=== PATIENT | male | born 1965 | race Caucasian/White ===

== ENCOUNTER → 2017-02-06 | Outpatient (CLI) | payer OTHER ==
--- NOTE | 2017-02-07 07:45 | SPLIT NIGHT TECHNICIAN REPORT ---
[facility] Split Night Polysomnogram - Dust Handler Report Study date: 02/06/2017 Referring Physician: Name: PADDY TARA W Dust Handler: Sonali Lorenzo, PSGT. Date of : 1965 Height: 51 years, Height 5' 11" Sex: Male Weight: 384 lbs Age: 51 BMI: Medications: 53.55 SEE LIST OF 14 MEDICATIONS IN CHART. Patient History 51 YR. OLD MALE IN ROOM 5, HERE FOR A SPLIT NIGHT SEIZURE STUDY.ESS = 5. PT.HAS HAD SEVERE SIDRA IN THE PAST BUT WAS NOT ABLE TO TOLERATE THE MASK/AND AIR. Parameters Monitored NPSG: E1-M2, E2-M1, Fp1-M2, Fp2-M1, F3-M2, F4-M2, F4-M1, C3-M2, C4-M2, C4-M1, O1-M2, O2-M2, O2-M1, T3-M2, T4-M1, P3-M2, P4-M1, CHIN1, CHIN2, HR, EKG, Legs, PFLOW, SNOR, FLOW, CFLOW, Tidal Volume, THOR, ABDO, SpO2, PLTH, CPRESS, ETCO2 Wave, ETCO2, pH SLEEP SUMMARY DATA DIAGNOSTIC TREATMENT Lights Out: 10:56:01 PM NONE Lights On: 1:23:31 AM 5:31:31 AM Total Recording Time (TRT): 151.7 min. 243.3 min. Total Sleep Time (TST): 100.5 min. 201.0 min. NREM Time: 100.5 min. 106.5 min. REM Time: 0.0 min. 94.5 min. Sleep Period Time (SPT): 136.5 min. 202.5 min. Sleep Efficiency (SE): 68 % 83 % Sleep Latency: 3.0 min. NONE min. Arousal Index: 84.8 36.7 PAP Treatment Levels: 5, 7, 9, 11, 13 * Optimal Pressure(s) SLEEP STAGING DATA DIAGNOSTIC TREATMENT Duration (min) TST % Duration (min) TST % Stage Wake: 51.2 min. -- 42.3 min. -- WASO: 44.0 min. -- 1.5 min. -- NREM: 100.5 min. 100 % 106.5 min. 53 % Stage N1: 28.0 min. 28 % 3.0 min. 1 % Stage N2: 72.5 min. 72 % 103.5 min. 51 % Stage N3: 0.0 min. 0 % 0.0 min. 0 % REM: 0.0 min. 0 % 94.5 min. 47 % POSITIONAL DATA Event Count Index Event Count Index Supine: 7 100.5 3 1.8 Supine NREM: 7 100.5 0 0.0 Supine REM: N/A N/A 3 2 Non-Supine: 171 106.5 97 58.4 Non-Supine NREM: 171 106.5 96 58.8 Non-Supine REM: N/A N/A 1 35.5 AROUSAL SUMMARY DATA: Event Count Index Event Count Index Apnea Arousals: 24 32.8 9 6.3 Hypopnea Arousals: 47 28.1 21 6.3 Snore Arousals: 28 16.7 7 2.1 PLM Arousals: 4 2.4 1 0.3 Non-Specific Arousals: 39 23.3 80 23.9 Total Arousals: 142 84.8 123 36.7 MYOCLONUS (PLM) Event Count Index Event Count Index PLM: 76 45.4 10 3.0 PLM AROUSAL: 4 2.4 1 0.3 PLM W/O AROUSAL 76 45.4 9 2.7 PLM W/RESP EVENT 15 0.0 0 0.0 MYOCLONUS (PLM) Event Count Index Event Count Index LM: 2 35.8 37 11.0 LM AROUSAL: 2 1.2 5 1.5 LM W/O AROUSAL LM W/RESP EVENT LM NON SPECIFIC 89 53.1 34 10.1 HEART RATE DATA DIAGNOSTIC TREATMENT Sleep (bpm): 74 63 REM (bpm): N/A 89 NREM (bpm): 86 81 Tachycardia Count: 0 0 Tachycardia Duration: 0.00 0 Bradycardia Count: 0 0 Bradycardia Duration: 0.00 0 DIAGNOSTIC PORTION TREATMENT PORTION RESPIRATORY DATA Event Count Index Event Count Index AHI: -- 106.3 -- 29.9 RDI: -- 106.3 -- 30 Obstructive Apnea: 49 29.3 20 6.0 Central Apnea: 0 0.0 0 0.0 Mixed Apnea: 6 3.6 1 0.3 Hypopnea: 123 73.4 79 23.6 RERA: 0 0.0 0 0.0 Total Apneas: 55 32.8 21 6.3 RESPIRATORY DATA REM NREM SLEEP REM NREM SLEEP Supine Position: Obstructive Apneas: N/A 6 6 0 0 0 Central Apneas: N/A 0 0 0 0 0 Mixed Apneas: N/A 0 0 0 0 0 Hypopneas: N/A 1 1 3 0 3 RERA N/A 0 0 0 0 0 Total Supine Events: N/A 7 7 3 0 3 Supine AHI: N/A 100.5 100.5 2 0.0 1.8 Supine RDI: N/A 100.5 100.5 1.9 0.0 1.8 REM NREM SLEEP REM NREM SLEEP Non-Supine Position: Obstructive Apneas: N/A 43 43 0 20 20 Central Apneas: N/A 0 0 0 0 0 Mixed Apneas: N/A 6 6 0 1 1 Hypopneas: N/A 122 122 1 75 76 RERA N/A 0 0 0 0 0 Total Supine Events: N/A 171 171 1 96 97 Supine AHI: N/A 106.5 106.5 35.5 58.8 58.4 Supine RDI: N/A 106.5 106.5 35.5 58.8 58.4 OXYGEN DESTAURATION DATA: Event Count Index Event Count Index REM Desaturations: N/A N/A 10 6.3 NREM Desaturations: 155 92.5 97 54.6 SNORE DATA DIAGNOSTIC TREATMENT Snore Time: 28.1 2:08:31 AM Snore TST%: 16 7 Snore Arousal Count: 28 7 Snore Arousal Index: 16.7 2.1 Desaturation Event Summary: Minimum %SpO2 Event Count Mean/Min/Max Duration(sec.) Desaturation Index % Time In Bed > 90 145 27.1 / 5.8 / 55.0 127.7 19.7 86 - 90 149 25.8 / 4.0 / 55.0 59.8 43.3 81 - 85 40 23.5 / 6.0 / 41.0 42.5 16.4 76 - 80 2 11.0 / 6.0 / 16.0 3.4 10.4 71 - 75 0 N/A 0.0 8.5 66 - 70 0 N/A 0.0 1.7 61 - 65 0 N/A 0.0 0.0 56 - 60 0 N/A 0.0 0.0 51 - 55 0 N/A 0.0 0.0 < 50 0 N/A 0.0 0.0 OXYGEN SATURATION DATA DIAGNOSTIC TREATMENT SpO2 Mean Sleep: 86 % 85 % SpO2 Mean REM: N/A % 89 % SpO2 Mean NREM: 86 % 81 % SpO2 Minimum Sleep: 72 % 67 % SpO2 Minimum REM: N/A % 83 % SpO2 Minimum NREM: 72 % 67 % Time Below 90% (TST): 64.5 145.4 Time Below 88% (TST): 51.0 84.4 Total REM NREM Awake <50% 0.0 min. 0.0 min. 0.0 min. 0.0 min. 51 - 60% 0.1 min. 0.0 min. 0.0 min. 0.1 min. 61 - 70% 5.8 min. 0.0 min. 4.5 min. 1.3 min. 71 - 80% 65.1 min. 0.0 min. 56.4 min. 8.7 min. 81 - 90% 206.0 min. 82.6 min. 97.2 min. 26.2 min. 91 - 100% 68.1 min. 11.3 min. 29.4 min. 27.5 min. Average 86 89 83 88 Minimum SpO2 58 83 67 58 Desaturation Event Index 40.2 6.3 73.0 0.0 # Desat. Events below 89% 255 10 245 0 Time(%) with Saturation below 89% 55.6 8.9 39.5 7.2 Time(min.) with Saturation below 89% 192.0 30.7 136.3 25.0 Recording Dust Handler Comments: Split -Night: slept in the right, and supine positions. No cardiac arrhythmia. Severe PLM's noted. No bruxism noted. Snoring was noted and scored as a 5 on a scale of 1 through 5. (0=no snoring, 5=snoring loud enough to be heard through a closed door or down the ruiz way) At 1:23, has met specific Split-Night criteria during the diagnostic portion of this study. CPAP was initiated at +4 CMH2O and up-titrated to an optimal level of +13 CMH2O, which nearly eliminated all respiratory events and snoring. A F&P Large Simplus , was used during titration awoke to use the restroom one time during the night. Mr. Sanchez stated, I did not sleep as well as I do when I am in my own bed". The final report will be interpreted and signed by a sleep physician. The completed physician report will then be placed in the patient medical record. Pt. had been started out on a seizure montage, he pulled it completely off his head when he decided to get up out of the bed.Pt. was very difficult to work with from the beginning of the night, he didn't want to be here and did not feel that he needed to be here. 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 When I put all the wires back on he did it again, so the third time I did a normal PSG supervisor drawing. Pt. actually would kick his legs so hard it would move his entire body this went on until c-pap was started. Pt. continued to pull wires and O2 sensor off throughout the night.Pt. had a lot of anxiety with the mask and air at first he would call me into the room several times to remove it sit up and drink, he stated he didn't have the mind set to wear it.After spending some time with him on the education of the benefit's from the c-pap he conceded and slept until the end of the study. Therapy Event: Therapy (cm H20) 0 5 7 9 11 13 Total Time at Pressure (min.) 147.7 44.8 5.5 37.8 25.8 129.5 TST at Pressure (min.) 100.5 4.0 5.5 37.8 25.8 128.0 # Periods 1 1 1 1 1 1 Sleep Onset (min.) 3.0 40.8 0.0 0.0 0.0 0.0 REM Onset (min.) N/A N/A N/A N/A N/A 25.0 Sleep Efficiency % 68 8 100 100 100 98 Wakefulness (%) 32.0 91.1 0.0 0.0 0.0 1.2 Wakefulness (min.) 47.2 40.8 0.0 0.0 0.0 1.5 NREM 1 (%) 19.0 6.7 0.0 0.0 0.0 0.0 NREM 1 (min.) 28.0 3.0 0.0 0.0 0.0 0.0 NREM 2 (%) 49.1 2.2 100.0 100.0 100.0 25.9 NREM 2 (min.) 72.5 1.0 5.5 37.8 25.8 33.5 NREM 3 (%) 0.0 0.0 0.0 0.0 0.0 0.0 NREM 3 (min.) 0.0 0.0 0.0 0.0 0.0 0.0 REM (%) 0.0 0.0 0.0 0.0 0.0 73.0 REM (min.) 0.0 0.0 0.0 0.0 0.0 94.5 # Arousals 142 4 6 45 34 34 Arousal Index 84.8 60.2 65.8 71.5 79.1 15.9 # Snore 714 7 11 157 106 110 Snore Index 426.3 105.3 120.7 249.5 246.7 51.6 AHI 106.3 60.2 76.8 71.5 79.1 4.7 AHI Supine 100.5 N/A N/A N/A N/A 1.8 AHI Non-Supine 106.5 60.2 76.8 71.5 79.1 15.7 NREM AHI 106.3 60.2 76.8 71.5 79.1 10.7 REM AHI N/A N/A N/A N/A N/A 2.5 RDI 106.3 60.2 76.8 71.5 79.1 4.7 # Obstructive 49 0 2 11 7 0 # Central Ap 0 0 0 0 0 0 # Mixed 6 1 0 0 0 0 # Hypopneas 123 3 5 34 27 10 RERAS 0 0 0 0 0 0 Total Respiratory Events 178 4 7 45 34 10 Time Below SpO2 89.00% (min.) 58.0 3.6 5.3 33.3 21.1 45.8 Mean NREM SpO2 (%) 86 78 77 78 81 86 Mean REM SpO2 (%) N/A N/A N/A N/A N/A 89 Mean Sleep SpO2 (%) 86 78 77 78 81 88 Min NREM SpO2 (%) 72 69 70 67 71 71 Min REM SpO2 (%) N/A N/A N/A N/A N/A 83 Position Supine (min.) 4.2 0.0 0.0 0.0 0.0 101.3 Position Non-supine (min.) 96.3 4.0 5.5 37.8 25.8 26.7 LM Index Sleep 81.2 0.0 0.0 12.7 44.2 9.4 LM Index NREM 81.2 0.0 0.0 12.7 44.2 25.1 LM Index REM N/A N/A N/A N/A N/A 3.8 Mean Heart Rate (bpm) 74 64 66 65 65 62 Min Heart Rate (bpm) 36 57 58 56 58 35
--- NOTE | 2017-02-15 08:11 | POLYSOMNOGRAPH REPORT ---
REFERRING PERSON: Dr. Mechelle Buenrostro. FORENSIC ACCOUNTANT: Jennifer Lorenzo. Mr. Sanchez is a 51-year-old male who was supposed to have a split night sleep study with seizure montage. He has had a history of obstructive sleep apnea in the past but was unable to tolerate CPAP therapy. 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 Mr. Sanchez did in fact qualify for a split night sleep study; however, seizure montage was not performed as at 2 separate times during the early part of this study, Mr. Sanchez pulled off all of his EEG leads and they needed to be reapplied. The third time they were reapplied, a normal montage was placed. He was observed for 100.5 minutes of sleep. During that time, he had 28% N1 sleep and 72% N2 sleep. There was no N3 or REM sleep. There were 142 arousals from sleep. Thirty-nine were nonspecific, 4 were due to periodic limb movements, 28 were due to snoring and the remaining arousals were due to respiratory events. There were 76 periodic limb movements, 4 of which resulted in arousals. Per the technologist's notes, he had almost full body jerking in his lower extremities throughout the diagnostic portion of the test. Mean saturation during the diagnostic portion of this study was 86% with desaturations with a respiratory event to 72%. Time spent below 90% was 64.5 minutes of the 100.5 minutes of sleep time. During observation, there were 49 obstructive apneas, no central apneas and 6 mixed apneas. Additionally, there were 123 hypopnea for an apnea hypopnea index of 106.3 consistent with very severe sleep apnea. Therefore, at 1:20 a.m., this patient was started on CPAP therapy. A large Simplus [place] and [place] full face mask was used for this titration. Over the remainder of the night, this patient was titrated from a CPAP pressure of 4 to a CPAP pressure of 13. Increasing pressures were needed to prevent apneas, hypopneas and arousals. He was observed on a pressure of 13 for 128 minutes of sleep time. 94.5 of those minutes was spent in REM sleep and supine REM sleep was noted on this pressure. AHI and RDI on this pressure were both 4.7. However, saturations remained below 89% for 45.8 minutes of recording time on this pressure. IMPRESSION AND PLAN: Successful split night sleep study in this patient with very severe sleep apnea. I would recommend that he be started on CPAP at a pressure of 14. A download from his machine can be reviewed in 1 month both to check compliance as well as AHI and further pressure adjustments can occur at that time. Additionally, this patient should have a nocturnal oximetry on 14. If he indeed continues to have hypoxemia, oxygen supplementation will also be necessary.
== END | disposition home or self-care (01) ==
LOC: C.NEUR 20:00
PROVIDERS: ATTEND Family Medicine
DX: E66.2 Morbid (severe) obesity with alveolar hypoventilation (principal); R06.89 Other abnormalities of breathing; R09.02 Hypoxemia

== ENCOUNTER 2019-08-16 12:23 | Inpatient (IN) ==
[2019-08-16] MEDS ORDERED: FUROSEMIDE 40 MG/4 ML VIAL IV STA (13:08)
--- NOTE | 2019-08-16 13:23 | XRay Report ---
XR chest 1V portable HISTORY: 54 years-old Male Dyspnea acute shortness of breath COMPARISON: None available TECHNIQUE: Portable AP view of the chest FINDINGS: Cardiac silhouette is enlarged, possibly accentuated by AP technique. Mild right hemidiaphragmatic el evation. No pneumothorax, large pleural effusion or focal airspace consolidation typical for pneumoni a. No overt pulmonary edema. Degenerative changes of the shoulders and spine. IMPRESSION: Cardiomegaly without acute process. The above report was generated using voice recognition software. It may contain grammatical, syntax o r spelling errors. Electronically signed by: Lorne Mott M.D. 08/16/2019 1:22 PM
--- NOTE | 2019-08-16 13:29 | Cardiology Consultation ---
Date of Consultation August 16, 2019 Assessment & Plan (1) Acute on chronic diastolic CHF (congestive heart failure): (2) Obesity hypoventilation syndrome: Echocardiogram reveals normal LV systolic function today. The right heart was not well visualized but the function appeared grossly normal. The patient was started furosemide 40 mg IV twice daily. I will readdress his response this tomorrow, and will titrate as necessary. Continue positive pressure ventilation at sleep as he takes at home. History of Present Illness History of Present Illness Mr Sanchez was seen in outpatient cardiology consultation by Dr Alston of our practice earlier today for assessment of edema. Pt found to be markedly volume overloaded. Pt reassessed by undersigned shortly after arrival to the ED by EMS. Plan: obtain labs, IV access, and based on results will likely start IV diuretics. Plan for echocardiogram. Further recommendations to be forthcoming, 08/16/19, 13:29 Further documentation added 08/16/2019, 6:15 PM: Patient recently been hospitalized at [facility] having been discharged on August 10, 2019. He was treated for lower extremity cellulitis and received IV antibiotics and was transitioned to oral antibiotics at time of discharge. He notes substantial decline since his recent hospital stay with increasing abdominal girth, bloating, and lower extremity edema. He notes market dyspnea and orthopnea and a weight gain of 30 pounds. He notes no palpitations and no chest discomfort he just states he has difficulty breathing. His outpatient medications include torsemide 10 mg however it sounds like the patient is taking 1 tablet a day. Per review of records, he had previously followed with [facility] with most recent visit with him in February 2018. Progress note describes patient's history of a remote cardiac catheterization in October 2016 [place] with minor nonobstructive CAD. At that time he had been on torsemide 80 mg daily . Allergies Allergy/AdvReac Type Severity Reaction Status Date / Time vancomycin Allergy Intermediate Hives Verified 08/16/19 14:08 acetaminophen [From Vicodin] Allergy Mild Rash Verified 08/16/19 14:08 hydrocodone [From Vicodin] Allergy Mild Rash Verified 08/16/19 14:08 Home Medications Home Medications Medication Instructions Recorded Confirmed Type Spiriva with HandiHaler 1 cap INHALATION DAILY PRN 04/03/19 08/16/19 History acetaminophen 500 mg PO Q6H PRN 04/03/19 08/16/19 History albuterol sulfate [Ventolin HFA] 2 puff INHALATION Q4 PRN 04/03/19 08/16/19 History aspirin 81 mg PO DAILY 04/03/19 08/16/19 History atorvastatin 40 mg PO HS 04/03/19 08/16/19 History fluticasone propion-salmeterol 1 inh INHALATION BID PRN 04/03/19 08/16/19 History [Advair Diskus] fluticasone propionate [Flonase 2 spray INTRANASAL HS PRN 04/03/19 08/16/19 History Allergy Relief] lisinopril 10 mg PO HS 04/03/19 08/16/19 History meloxicam 15 mg PO HS 04/03/19 08/16/19 History oxycodone-acetaminophen 1 tab PO Q6H PRN 04/03/19 08/16/19 History pantoprazole 40 mg PO HS 04/03/19 08/16/19 History potassium chloride 20 meq PO HS 04/03/19 08/16/19 History sennosides [senna] 2 tab PO DAILY PRN 04/03/19 08/16/19 History torsemide 20 mg PO BID 04/03/19 08/16/19 History Lactobacillus acidophilus 1 mmu cells PO TID 08/16/19 08/16/19 History cefdinir 300 mg PO BID 08/16/19 08/16/19 History cholecalciferol (vitamin D3) 2,000 unit PO DAILY 08/16/19 08/16/19 History cyclobenzaprine 5 mg PO DAILY 08/16/19 08/16/19 History doxycycline hyclate 100 mg PO Q12H 08/16/19 08/16/19 History white petrolatum [Petroleum Jelly] 1 applic TOPICAL UD 08/16/19 08/16/19 History Patient History Medical History Asthma Sleep apnea bipap with 2L oxygen Myocardial Infarction ? 10 yrs ago Hyperlipidemia Hypertension Thyroid nodule just monitoring Chronic back pain Bulging lumbar disc Bulging of cervical intervertebral disc Gout Osteoarthritis GERD with apnea COPD (chronic obstructive pulmonary disease) Seizure Possible seizure in 2016 evaluation normal per patient , no problems since Surgical History History of cardiac cath ? 10yrs ago--no stents History of phacoemulsification of cataract of left eye with intraocular lens implantation History of cholecystectomy History of toe surgery right big toe History of repair of anterior cruciate ligament of right knee History of tooth extraction Family History Aunt Family history of diabetes mellitus Mother Diabetes Father Cancer of kidney Heart disease Other No family history of adverse response to anesthesia Social History Preferred Language: Burundian Communication Ability: Effective Director Center Required: No Beliefs That Will Affect Care: None Current Living Situation: Spouse and Family Current Living Situation Comment: Lives with and 2 kids Other Information That Helps Us Care for You: No Feels Safe at Home: Yes Safety Concerns: Feels Safe At This Time Smoking Status: Current every day smoker Tobacco Type: cigarettes ; Years Smoked: 27 ; Cigarettes Per Day: 10-20 ; Second Hand Exposure: Yes ( smokes/father smoked) ; Hx Alcohol Use: No Hx Substance Use: No Review of Systems Review of Systems: All systems reviewed & are unremarkable except as noted in HPI & below Physical Exam Physical Exam: Temp Pulse Resp BP Pulse Ox 37.1 C 66 20 142/70 H 91 08/16/19 17:11 08/16/19 17:49 08/16/19 17:11 08/16/19 17:11 08/16/19 17:11 Constitutional: Obese, chronically ill in appearance Respiratory: normal respiratory effort, lungs clear to auscultation Cardiovascular: Very distant heart sounds, regular rhythm without murmur Chronic stasis changes of the lower extremities, with 3+ lower extremity edema Gastrointestinal (Abdomen): Obese, significant abdominal distention Neurologic: PERRL, EOMI, accommodation nl, no face palsy, no dysarthria Results & Data Vital Signs (Past 12 Hours) Vital Signs Temp Pulse Resp BP Pulse Ox 08/16/19 13:21 66 16 96 08/16/19 12:29 37.2 C 66 16 136/55 L 96 Laboratory Results Cardiac Enzymes 08/16/19 Range/Units 14:06 AST 22 (15-37) U/L Troponin I < 0.015 (0-0.045) ng/ml Coagulation 08/16/19 Range/Units 14:06 PT 10.3 (9.0-12.0) Seconds APTT 27.4 (21.0-31.0) Seconds CBC 08/16/19 Range/Units 14:06 WBC 7.05 (4.8-10.8) K/uL RBC 4.31 L (4.7-6.1) M/uL Hgb 13.4 L (14.0-18.0) g/dL Hct 40.4 L (42-52) % Plt Count 197 (130-400) K/uL Neut # (Auto) 4.45 (1.4-6.5) K/uL Lymph # (Auto) 1.58 (1.2-3.4) K/uL [place] # (Auto) 0.62 H (0.11-0.59) K/uL Eos # (Auto) 0.36 (0-0.5) K/uL Baso # (Auto) 0.03 (0-0.2) K/uL Comprehensive Metabolic Panel 08/16/19 Range/Units 14:06 Sodium 142 (136-145) mmol/L Potassium 3.7 (3.5-5.1) mmol/L Chloride 106 (98-107) mmol/L Carbon Dioxide 32 (21-32) mmol/L BUN 18 (7-18) mg/dl Creatinine 0.85 (0.6-1.4) mg/dl Glucose 87 (70-99) mg/dl Calcium 9.1 (8.5-10.1) mg/dl AST 22 (15-37) U/L ALT 27 (12-78) U/L Alkaline Phosphatase 164 H (45-117) U/L Total Protein 7.1 (6.4-8.2) gm/dl Albumin 3.2 L (3.4-5.0) gm/dl Intake and Output 08/16/19 08/16/19 08/16/19 06:59 14:59 22:59 Other: Weight 197.2 kg 193.1 kg Patient Weight 08/17/19 06:59 Weight 193.1 kg Diagnostic Findings EKG performed today, sinus rhythm at 60 bpm with right bundle branch block. And age-indeterminate septal infarction cannot be excluded. Stable compared to the prior outpatient EKG in the [facility] system performed 08/08/2019.
[2019-08-16 14:15] LABS: Basophils # (auto) 0.03 K/uL (0-0.2); Basophils % (auto) 0.4 %; Eosinophils # (auto) 0.36 K/uL (0-0.5); Eosinophils % (auto) 5.1 %; Hematocrit (blood only) 40.4 % (42-52); Hemoglobin 13.4 g/dL (14.0-18.0); Immature Granulocytes # (auto) 0.01 K/uL (0.00-0.02); Immature Granulocytes % (auto) 0.1 %; Lymphocytes # (auto) 1.58 K/uL (1.2-3.4); Lymphocytes % (auto) 22.4 %; Mean Corpuscular Hemoglobin 31.1 pg (25-34); Mean Corpuscular Hgb Conc 33.2 g/dL (32-36); Mean Corpuscular Volume 93.7 fL (80-100); Mean Platelet Volume 10.3 fL (7.4-10.4); Monocytes # (auto) 0.62 K/uL (0.11-0.59); Monocytes % (auto) 8.8 %; Neutrophils # (auto) 4.45 K/uL (1.4-6.5); Neutrophils % (auto) 63.2 %; Platelet Count 197 K/uL (130-400); RDW Coefficient of Variation 14.9 % (11.5-14.5); RDW Standard Deviation 50.7 fL (36.4-46.3); Red Blood Count 4.31 M/uL (4.7-6.1); White Blood Count 7.05 K/uL (4.8-10.8)
[2019-08-16 14:26] LABS: Partial Thromboplastin Time 27.4 Seconds (21.0-31.0); Prothrombin Time 10.3 Seconds (9.0-12.0)
[2019-08-16 14:31] LABS: Alanine Aminotransferase 27 U/L (12-78); Albumin Level 3.2 gm/dl (3.4-5.0); Aspartate Aminotransferase 22 U/L (15-37); BUN Creatinine Ratio 21.3 (10-20); Blood Urea Nitrogen 18 mg/dl (7-18); Calcium 9.1 mg/dl (8.5-10.1); Carbon Dioxide 32 mmol/L (21-32); Chloride 106 mmol/L (98-107); Creatinine Clr Calc Pharmacy 180.4 ml/min; Est GFR (African American) 116.1; Est GFR (Non-African American) 100.2; Glucose 87 mg/dl (70-99); Magnesium 2.2 mg/dl (1.8-2.4); Potassium 3.7 mmol/L (3.5-5.1); Sodium 142 mmol/L (136-145)
[2019-08-16 14:36] LABS: Albumin Globulin Ratio 0.8 (0.9-2); Alkaline Phosphatase 164 U/L (45-117); Bilirubin,Total 0.6 mg/dl (0.2-1); Globulin 3.9 gm/dl (2.5-4.0); Total Protein 7.1 gm/dl (6.4-8.2); Troponin I < 0.015 ng/ml (0-0.045)
[2019-08-16] MEDS ORDERED: FUROSEMIDE 40 MG/4 ML VIAL IV ONE (15:47)
--- NOTE | 2019-08-16 16:03 | History & Physical Report ---
Date of Service August 16, 2019 Assessment & Plan (1) Acute on chronic diastolic CHF (congestive heart failure): This is a 54-year-old male who has significant past medical history of HTN, HLD, Pre Diabetes, pickwickian syndrome, history of right heart failure/diastolic CHF, SIDRA on BiPAP at HS, PVD, chronic venous insufficiency, history of DVT, GERD, depression, tobacco abuse who presents to [facility] ED at the referral of cardiology clinic secondary to shortness of breath and 30 pound weight gain in 1 week. In cardiology clinic seen by Dr. Alston with complaints of SOB/LUNA. Weight noted to be 197kg today and on 08/08/19 weight 181.4kg In ED CXR without acute process CBC and CMP relatively benign Received IV Lasix 40mg x 1 in ED Admit to tele Lasix 40mg IV BID17 (outpt takes torsemide 20mg bid) monitor strict I and O Daily weight HH and Low NA diet, FR of 1800ml echocardiogram ordered Cardiology consulted (2) Bilateral lower leg cellulitis: s/p recent hospitalization at [facility] for cellulitis following outpatient wound care discharged on cefnidir 300mg bid x 10 days (day 4/10)/ Doxycycline 100mg bid x 10 days (day 4/10) continue antibiotic along with probiotic wound care consulted (3) Lymphedema of both lower extremities: as above (4) Bilateral conjunctivitis: L > R visual acuity ordered cipro opth 2 gtt q4hwa x 5 days no photophobia, vision changes monitor closely hx of cataract extraction/lens to L eye in past (5) Hypertension: blood pressure controlled on lisinopril monitor (6) Hyperlipidemia: continue statin (7) Pre-diabetes: A1C 6.1 admitting glucose 87 encourage lifestyle modifications given multiple co morbidities (8) Sleep apnea: Bipap at HS (9) COPD (chronic obstructive pulmonary disease): no acute exacerbation continue advair prn albuterol (10) Tobacco abuse: declines nicotine patch encourage smoking cessation (11) Morbid obesity with BMI of 50.0-59.9, adult: encourage lifestyle modifications (12) Chronic back pain: continue prn percocet monitor (13) DVT prophylaxis: Lovenox Disposition: admit to telemetry Follow up: PCP Dr. Roy upon discharge, along with appropriate wound care follow up Patient was seen and examined in collaboration with Dr. Ellis, please see addendum Starting 08/17/19 patient will be under the care of Dr. Waldrop History of Present Illness Chief Complaint: Referred from cardiology clinic due to SOB and 30lb weight gain. Primary Care Provider: Chavo Roy DO This is a 54-year-old male who has significant past medical history of HTN, HLD, Pre Diabetes, pickwickian syndrome, history of right heart failure/diastolic CHF, SIDRA on BiPAP at , PVD, chronic venous insufficiency, history of DVT, GERD, depression, tobacco abuse who presents to [facility] ED at the referral of cardiology clinic secondary to shortness of breath and 30 pound weight gain in 1 week. Patient was seen in cardiology clinic today by Dr. Alston. Patient with complaints of increased shortness of breath at rest and with exertion. He had a notable 30 pound weight gain. Was referred to [facility] ED. Of significance patient recently confined at [facility] from 08/08/19-08/10/19 due to lower extremity cellulitis. He was treated with IV antibiotics and discharged home on doxycycline and Cefnidir for 10 days. He states he has only been taking these once a day. He denies any f ever, chills, sweats, lightheaded, dizziness, syncope, nausea, vomiting, diarrhea. He notes shortness of breath at rest, LUNA, left eye drainage, right- sided chest discomfort with coughing "underneath my ribs when I cough," decreased urination. Patient admits to being noncompliant with low-sodium diet and does not manage fluid intake. He does not weigh himself on a daily basis and is unsure what his dry weight is, "it fluctuates all the time." He chronically has bilateral lower extremity swelling and admits this fluctuates frequently as well, unsure if currently worse. Denies PND and orthopnea. Allergies Allergy/AdvReac Type Severity Reaction Status Date / Time vancomycin Allergy Intermediate Hives Verified 08/16/19 14:08 acetaminophen [From Vicodin] Allergy Mild Rash Verified 08/16/19 14:08 hydrocodone [From Vicodin] Allergy Mild Rash Verified 08/16/19 14:08 Home Medications Home Medications Medication Instructions Recorded Confirmed Type Spiriva with HandiHaler 1 cap INHALATION DAILY PRN 04/03/19 08/16/19 History acetaminophen 500 mg PO Q6H PRN 04/03/19 08/16/19 History albuterol sulfate [Ventolin HFA] 2 puff INHALATION Q4 PRN 04/03/19 08/16/19 History aspirin 81 mg PO DAILY 04/03/19 08/16/19 History atorvastatin 40 mg PO HS 04/03/19 08/16/19 History fluticasone propion-salmeterol 1 inh INHALATION BID PRN 04/03/19 08/16/19 History [Advair Diskus] fluticasone propionate [Flonase 2 spray INTRANASAL HS PRN 04/03/19 08/16/19 History Allergy Relief] lisinopril 10 mg PO HS 04/03/19 08/16/19 History meloxicam 15 mg PO HS 04/03/19 08/16/19 History oxycodone-acetaminophen 1 tab PO Q6H PRN 04/03/19 08/16/19 History pantoprazole 40 mg PO HS 04/03/19 08/16/19 History potassium chloride 20 meq PO HS 04/03/19 08/16/19 History sennosides [senna] 2 tab PO DAILY PRN 04/03/19 08/16/19 History torsemide 20 mg PO BID 04/03/19 08/16/19 History Lactobacillus acidophilus 1 mmu cells PO TID 08/16/19 08/16/19 History cefdinir 300 mg PO BID 08/16/19 08/16/19 History cholecalciferol (vitamin D3) 2,000 unit PO DAILY 08/16/19 08/16/19 History cyclobenzaprine 5 mg PO DAILY 08/16/19 08/16/19 History doxycycline hyclate 100 mg PO Q12H 08/16/19 08/16/19 History white petrolatum [Petroleum Jelly] 1 applic TOPICAL UD 08/16/19 08/16/19 History Past Med/Surg History Surgical History History of cardiac cath ? 10yrs ago--no stents History of phacoemulsification of cataract of left eye with intraocular lens implantation History of cholecystectomy History of toe surgery right big toe History of repair of anterior cruciate ligament of right knee History of tooth extraction Family History Aunt Family history of diabetes mellitus Mother Diabetes Father Cancer of kidney Heart disease Other No family history of adverse response to anesthesia Social History Preferred Language: Yi Communication Ability: Effective Side Stapler Required: No Beliefs That Will Affect Care: None Current Living Situation: Spouse and Family Current Living Situation Comment: Lives with and 2 kids Other Information That Helps Us Care for You: No Feels Safe at Home: Yes Safety Concerns: Feels Safe At This Time Smoking Status: Current every day smoker Tobacco Type: cigarettes ; Years Smoked: 27 ; Cigarettes Per Day: 10-20 ; Second Hand Exposure: Yes ( smokes/father smoked) ; Hx Alcohol Use: No Hx Substance Use: No Review of Systems Review of Systems: All systems reviewed & are unremarkable except as noted in HPI & below Physical Exam Physical Exam: Constitutional: WD/WN, vitals as above, unkempt, M, morbidly obese,NAD, sitting up in bed, pleasant, conversing easily Head: Normocephalic, Atraumatic Eyes: PERRL, conjunctivae injected L with purulent discharge at medial canthus b/l, no photophobia, mild R eye conjunctival injection, limbus spared, anicteric sclerae ENMT: external ear and nose normal, oropharynx normal Neck: trachea midline, no thyromegaly normal visual inspection Respiratory: normal respiratory effort, lungs clear to auscultation, +expiratory wheeze/rhonchi noted ROMEO, no rales, rhonchi. Normal insp/exp effort, no accessory muscle use Cardiovascular: RRR, no murmur, Significant lower ext lymphedema with venous stasis change, current compression dressing in place, +1 pedal pulses b/l Vessels: no JVD or carotid bruit Chest: normal inspection of chest , pain to palpation of R lower anterior rib cage Abdomen: obese abdomen, normal bowel sounds, firm, nontender, no hepatosplenomegaly Musculoskeletal: no cyanosis or clubbing, Skin: upper anterior/posterior thorax with papular erythematous rash noted with excoriation, warm and dry normal turgor Neurologic: PERRL, EOMI, accommodation nl, no face palsy, no dysarthria CN's II-XI intact bilaterally and moves all extremities Psychiatric: A+Ox3, euthymic affect Lymphatic: no cervical or axillary lymphadenopathy : deferred Results & Data Vital Signs (Past 12 Hours) Vital Signs Temp Pulse Resp BP Pulse Ox 08/16/19 15:31 71 140/67 94 08/16/19 15:00 59 L 124/80 91 08/16/19 14:31 61 132/70 92 08/16/19 14:02 64 150/65 H 92 08/16/19 13:21 66 16 96 08/16/19 12:36 67 22 136/55 L 94 08/16/19 12:29 37.2 C 66 16 136/55 L 96 Laboratory Results Short CBC 08/16/19 Range/Units 14:06 WBC 7.05 (4.8-10.8) K/uL Hgb 13.4 L (14.0-18.0) g/dL Hct 40.4 L (42-52) % Plt Count 197 (130-400) K/uL BMP 08/16/19 14:06 Sodium 142 Potassium 3.7 Chloride 106 Carbon Dioxide 32 BUN 18 Creatinine 0.85 Glucose 87 Calcium 9.1 Cardiac Enzymes 08/16/19 Range/Units 14:06 Troponin I < 0.015 (0-0.045) ng/ml Liver Function 08/16/19 Range/Units 14:06 Total Bilirubin 0.6 (0.2-1) mg/dl AST 22 (15-37) U/L ALT 27 (12-78) U/L Alkaline Phosphatase 164 H (45-117) U/L Albumin 3.2 L (3.4-5.0) gm/dl Diagnostic Findings CXR: IMPRESSION: Cardiomegaly without acute process. Medications Administered Discontinued Medications Furosemide (Lasix) 40 mg IV NOW STA Stop: 08/16/19 13:09 Last Admin: 08/16/19 15:49 Dose: 40 mg Documented by: [id number] Furosemide (Lasix) Confirm Administered Dose 40 mg IV .STK-MED ONE Stop: 08/16/19 15:48 Last Admin: 08/16/19 15:49 Dose: Not Given Documented by: [id number] Code Status & VTE Plan Code Status Full Code VTE Prophylaxis Plan VTE Prophylaxis will be ordered: Yes Supervising Physician Co-Signing Physician Notes I have seen and examined the patient with physician assistant professor of economics and would like to comment that on Exam: General: obese patient, laying on the bed, no distress Eyes: conjunctivitis of eyes with more redness of the conjunctiva of left eye ENT/Lungs: breathing on room air, no wheezing, no rhinorrhea Chest: tenderness on palpation on lower right pectoralis area Heart: regular rate and rhythm Abdomen: soft, nontender, positive bowel sounds Skin: multiple pinpoint areas of redness of the anterior chest and abdomen Problem list includes Acute on chronic diastolic congestive heart failure -30 pound weight gain likely due to excessive fluid intake at home -sent by cardiology clinic to hospital for treatment -no pulmonary edema -Lasix IV BID instead of daily torsemide at this time -heart healthy, Low sodium diet with fluid restriction Hypertension -continue Lisinopril Morbid Obesity with BMI 59 -PT/OT evaluations while in the hospital, encourage mobility Obstructive sleep apnea -uses BIPAP with sleep COPD Tobacco use -continue home inhalers Pre-diabetes -may benefit with diabetic diet in the hospital as well Conjunctivitis -ciprofloxacin eye drops Bilateral lower extremity cellulitis -continue the completion of outpatient antibiotic course, wound care Agree with other assessment s of medical issues as described by physician assistant professor of economics My colleague Dr. Waldrop will be following the patient starting on 08/17/19
[2019-08-16] MEDS ORDERED: ONDANSETRON INJ 2 MG/ML 2 ML VIAL IV PRN (17:10)
[2019-08-16] MEDS ORDERED: MAGNESIUM HYDROXIDE SUSP 30 ML UDC PO PRN (17:10)
[2019-08-16] MEDS ORDERED: ALBUT/IPRATROP 3MG/0.5MG NEB 3 ML VIAL NEB PRN (17:10)
[2019-08-16] MEDS ORDERED: FLUTICASONE/SALMETEROL 250/50 (ADVAIR) 14 PUFF/1 INHALER INH PRN (17:10)
[2019-08-16] MEDS ORDERED: NON-FORMULARY MEDICATION (Doxycycline Hyclate 100 MG) PO SCH (17:10)
[2019-08-16] MEDS ORDERED: TIOTROPIUM BROMIDE 5 PUFF/90 MCG INH INH PRN (17:10)
[2019-08-16] MEDS ORDERED: ALUMINUM/MAGNESIUM SUSP 30 ML UDC PO PRN (17:10)
[2019-08-16] MEDS ORDERED: FLUTICASONE PROPIONATE NA SPR 16 GM BTL PRN (17:10)
[2019-08-16] MEDS ORDERED: ACETAMINOPHEN 325 MG TAB PO PRN (17:10)
[2019-08-16] MEDS ORDERED: POLYETHYLENE (MIRALAX) 17 GM PACK PO PRN (17:10)
[2019-08-16] MEDS ORDERED: SENNA 8.6 MG TAB PO PRN (17:10)
[2019-08-16 18:13] LABS: Appearance Urine Clear (Clear); Bilirubin Urine Negative (Negative); Blood Urine Negative (Negative); Color Urine Yellow; Glucose Urine UA Negative (Negative); Ketones Urine Negative (Negative); Leukocyte Esterase Urine Negative (Negative); Nitrite Urine Negative (Negative); Protein Urine Negative (Negative); Urobilinogen Urine Negative (Negative); pH Urine 7.5 (4.5-7.5)
[2019-08-16] MEDS: LACTOBACILLUS ACIDOPHILUS (FLORANEX) TAB PO SCH (20:24)
[2019-08-16] MEDS: CIPROFLOXACIN HCL 0.3% OP SOLN 2.5 ML BTL OPB SCH (20:24)
[2019-08-16] MEDS: CEFDINIR 300 MG CAP PO SCH (20:25)
[2019-08-16] MEDS: FUROSEMIDE 40 MG in SYRINGE 0 ML IV SCH (20:25)
[2019-08-16] MEDS: ATORVASTATIN 40 MG TAB PO SCH (20:26)
[2019-08-16] MEDS: DOXYCYCLINE HYCLATE 100 MG CAP PO SCH (20:26)
[2019-08-16] MEDS: lisinopriL 10 MG TAB PO SCH (20:26)
[2019-08-16] MEDS: MELOXICAM 7.5 MG TAB PO SCH (20:26)
[2019-08-16] MEDS: POTASSIUM CHLORIDE 20 MEQ TABCR PO SCH (20:26)
[2019-08-16] MEDS: PANTOprazole 40 MG TAB PO SCH (20:26)
[2019-08-16] MEDS: ENOXAPARIN INJ 40 MG/0.4 ML SYR SQ SCH (20:27)
--- NOTE | 2019-08-16 20:49 | Emergency Department Note ---
Entered by Philip Mena acting as a scribe for History of Present Illness General Chief complaint: Shortness of Breath/Dyspnea Stated complaint: SOB Source: patient History of Present Illness Onset (ago): minute(s) (earlier today) Location: chest Pain Consistency: + constant Maximum Pain Intensity: 2 Quality: + other (SOB) Associated symptoms: + chest pain (pressure) and + other (30lbs weight gain) The patient is a 54 y/o male who presents to the ED w/ CC of constant shortness of breath beginning earlier today. The patient states he was evaluated by his automatic edger today and was told to come to the ED. He reports his automatic edger is Dr. Alston. The patient notes he is not sure why he was being evaluated by the automatic edger, but this was in follow up to a recent admission to [facility]. He states he has had 30lb weight gain in the past week and takes 20mg of Lasix a day. The patient reports he also has been experiencing chest pressure that makes it difficult to breathe. He notes [facility] and [facility], but he does not smoke as much as he used to. Home Medications Home Medications Medication Instructions Recorded Confirmed Type Spiriva with HandiHaler 1 cap INHALATION DAILY PRN 04/03/19 08/16/19 History acetaminophen 500 mg PO Q6H PRN 04/03/19 08/16/19 History albuterol sulfate [Ventolin HFA] 2 puff INHALATION Q4 PRN 04/03/19 08/16/19 History aspirin 81 mg PO DAILY 04/03/19 08/16/19 History atorvastatin 40 mg PO HS 04/03/19 08/16/19 History fluticasone propion-salmeterol 1 inh INHALATION BID PRN 04/03/19 08/16/19 History [Advair Diskus] fluticasone propionate [Flonase 2 spray INTRANASAL HS PRN 04/03/19 08/16/19 History Allergy Relief] lisinopril 10 mg PO HS 04/03/19 08/16/19 History meloxicam 15 mg PO HS 04/03/19 08/16/19 History oxycodone-acetaminophen 1 tab PO Q6H PRN 04/03/19 08/16/19 History pantoprazole 40 mg PO HS 04/03/19 08/16/19 History potassium chloride 20 meq PO HS 04/03/19 08/16/19 History sennosides [senna] 2 tab PO DAILY PRN 04/03/19 08/16/19 History torsemide 20 mg PO BID 04/03/19 08/16/19 History Lactobacillus acidophilus 1 mmu cells PO TID 08/16/19 08/16/19 History cefdinir 300 mg PO BID 08/16/19 08/16/19 History cholecalciferol (vitamin D3) 2,000 unit PO DAILY 08/16/19 08/16/19 History cyclobenzaprine 5 mg PO DAILY 08/16/19 08/16/19 History doxycycline hyclate 100 mg PO Q12H 08/16/19 08/16/19 History white petrolatum [Petroleum Jelly] 1 applic TOPICAL UD 08/16/19 08/16/19 History Allergies Allergy/AdvReac Type Severity Reaction Status Date / Time vancomycin Allergy Intermediate Hives Verified 08/16/19 14:08 hydrocodone [From Vicodin] Allergy Mild Rash Verified 08/16/19 14:08 Past Med/Surg History Medical History Asthma Sleep apnea bipap with 2L oxygen Myocardial Infarction ? 10 yrs ago Hyperlipidemia Hypertension Thyroid nodule just monitoring Chronic back pain Bulging lumbar disc Bulging of cervical intervertebral disc Gout Osteoarthritis GERD with apnea COPD (chronic obstructive pulmonary disease) Seizure Possible seizure in 2016 evaluation normal per patient , no problems since Surgical History History of cardiac cath ? 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 and A total of 10 systems reviewed and were otherwise negative Physical Exam Vital Signs Vital Signs - 24 hr 08/16/19 12:29 08/16/19 12:36 08/16/19 13:21 Temperature 37.2 C Temperature Source Oral Sepsis Recent Fever Within 48 Hours No Sepsis New/Unexplained Change in Mental Status No Sepsis Action Taken by Nursing No Action Required Pulse Rate 66 67 66 Pulse Rate from SpO2 Sensor 66 Pulse Rhythm Regular Respiratory Rate 16 22 16 Respiratory Effort / Characteristics Non-Labored Respiratory Depth Normal Respiratory Pattern Regular Blood Pressure 136/55 L 136/55 L Blood Pressure Mean 82 82 Pulse Oximetry 96 94 96 Oxygen Delivery Method Room Air Room Air Room Air 08/16/19 14:02 08/16/19 14:31 08/16/19 15:00 Temperature Temperature Source Sepsis Recent Fever Within 48 Hours Sepsis New/Unexplained Change in Mental Status Sepsis Action Taken by Nursing Pulse Rate 64 61 59 L Pulse Rate from SpO2 Sensor 68 62 63 Pulse Rhythm Respiratory Rate Respiratory Effort / Characteristics Respiratory Depth Respiratory Pattern Blood Pressure 150/65 H 132/70 124/80 Blood Pressure Mean 93 90 94 Pulse Oximetry 92 92 91 Oxygen Delivery Method Room Air Room Air Room Air 08/16/19 15:25 08/16/19 15:31 Temperature Temperature Source Sepsis Recent Fever Within 48 Hours Sepsis New/Unexplained Change in Mental Status Sepsis Action Taken by Nursing Pulse Rate 71 Pulse Rate from SpO2 Sensor 70 Pulse Rhythm Respiratory Rate Respiratory Effort / Characteristics Spontaneous Short of Breath SOB on Exertion Respiratory Depth Respiratory Pattern Regular Blood Pressure 140/67 Blood Pressure Mean 91 Pulse Oximetry 94 Oxygen Delivery Method Room Air Room Air Vital signs reviewed. General: Morbidly obese, chronically ill-appearing 54 y/o male, in no significant distress. HEENT: No scleral icterus, PERRLA, neck supple. Atraumatic. Cardiovascular: Regular rate and rhythm, no extra sounds. Pulmonary: Clear to auscultation bilaterally, normal work of breathing. Abdomen: Soft, nontender, nondistended, positive bowel sounds. Musculoskeletal: Atraumatic, bilateral lower extremity edema with dressing over the calves bilaterally. Neurologic: Patient awake alert and oriented x 3. Skin: Warm, dry, no rash Course 1301: Past medical records reviewed. The patient was evaluated in room B08. A complete history and physical examination was performed. 1511: I discussed the patient's case with Dr. Reyes, Cardiology. He is aware of the patient's case. 1530: I discussed the patient's case with Betsy Roldan PA-C, attending Dr. Ellis, [facility]. The patient will be evaluated for further management and care. 1539: Upon reevaluation, the patient is resting comfortably. I discussed laboratory and radiographic results with him. He verbalized agreement of the treatment plan. The patient will be evaluated for further management and care. Administered Medications Acetaminophen (Tylenol) 650 mg PO Q4H PRN PRN Reason: Pain or Fever Stop: 09/15/19 17:09 Last Admin: 08/20/19 02:12 Dose: 650 mg Documented by: [id number] Albuterol (Combivent Respimat) 1 puffs INH QID RADHA Stop: 09/18/19 16:59 Last Admin: 08/20/19 11:54 Dose: 1 puffs Documented by: [id number] Admin: 08/20/19 08:36 Dose: 1 puffs Documented by: [id number] Admin: 08/19/19 21:12 Dose: 1 puffs Documented by: [id number] Admin: 08/19/19 16:08 Dose: 1 puffs Documented by: [id number] Aspirin (Ecotrin Ectab) 81 mg PO DAILY RADHA Stop: 09/16/19 08:59 Last Admin: 08/20/19 08:37 Dose: 81 mg Documented by: [id number] Admin: 08/19/19 08:22 Dose: 81 mg Documented by: [id number] Admin: 08/18/19 07:49 Dose: 81 mg Documented by: [id number] Admin: 08/17/19 07:57 Dose: 81 mg Documented by: [id number] Atorvastatin Calcium (Lipitor) 40 mg PO HS [facility] Stop: 09/15/19 20:59 Last Admin: 08/19/19 21:14 Dose: 40 mg Documented by: [id number] Admin: 08/18/19 21:27 Dose: 40 mg Documented by: [id number] Admin: 08/17/19 20:26 Dose: 40 mg Documented by: [id number] Admin: 08/16/19 20:26 Dose: 40 mg Documented by: [id number] Cetirizine HCl (Zyrtec) 10 mg PO QAM [facility] Stop: 09/16/19 10:59 Last Admin: 08/20/19 08:37 Dose: 10 mg Documented by: [id number] Admin: 08/19/19 08:22 Dose: 10 mg Documented by: [id number] Admin: 08/18/19 07:48 Dose: 10 mg Documented by: [id number] Admin: 08/17/19 13:57 Dose: 10 mg Documented by: [id number] Ciprofloxacin (Ciloxan 0.3% Opth) 2 drops OPB Q4HWA [facility] Stop: 08/21/19 19:59 Last Admin: 08/20/19 11:53 Dose: 2 drops Documented by: [id number] Admin: 08/20/19 08:36 Dose: 2 drops Documented by: [id number] Admin: 08/19/19 21:14 Dose: 2 drops Documented by: [id number] Admin: 08/19/19 16:07 Dose: 2 drops Documented by: [id number] Admin: 08/19/19 12:27 Dose: 2 drops Documented by: [id number] Admin: 08/19/19 08:23 Dose: 2 drops Documented by: [id number] Admin: 08/18/19 21:26 Dose: 2 drops Documented by: [id number] Admin: 08/18/19 16:18 Dose: 2 drops Documented by: [id number] Admin: 08/18/19 11:59 Dose: 2 drops Documented by: [id number] Admin: 08/18/19 07:50 Dose: 2 drops Documented by: [id number] Admin: 08/17/19 20:25 Dose: 2 drops Documented by: [id number] Admin: 08/17/19 15:57 Dose: 2 drops Documented by: [id number] Admin: 08/17/19 13:28 Dose: 2 drops Documented by: [id number] Admin: 08/17/19 07:55 Dose: 2 drops Documented by: [id number] Admin: 08/16/19 20:24 Dose: 2 drops Documented by: [id number] Enoxaparin Sodium (Lovenox) 40 mg SQ Q24H RADHA Stop: 09/15/19 20:59 Last Admin: 08/19/19 21:14 Dose: 40 mg Documented by: [id number] Admin: 08/18/19 21:27 Dose: 40 mg Documented by: [id number] Admin: 08/17/19 20:25 Dose: 40 mg Documented by: [id number] Admin: 08/16/19 20:27 Dose: 40 mg Documented by: [id number] Fluticasone Propionate (Flonase) 2 sprays NA DAILY RADHA Stop: 09/17/19 16:29 Last Admin: 08/20/19 08:36 Dose: 2 sprays Documented by: [id number] Admin: 08/19/19 08:23 Dose: 2 sprays Documented by: [id number] Admin: 08/18/19 18:04 Dose: 2 sprays Documented by: [id number] Guaifenesin (Mucinex) 600 mg PO Q12 RADHA Stop: 09/16/19 20:59 Last Admin: 08/20/19 08:37 Dose: 600 mg Documented by: [id number] Admin: 08/19/19 21:14 Dose: 600 mg Documented by: [id number] Admin: 08/19/19 08:22 Dose: 600 mg Documented by: [id number] Admin: 08/18/19 21:28 Dose: 600 mg Documented by: [id number] Admin: 08/18/19 07:49 Dose: 600 mg Documented by: [id number] Admin: 08/17/19 20:27 Dose: 600 mg Documented by: [id number] Furosemide 40 mg/ Syringe 4 mls @ 4 mls/min IV [id number] RADHA Stop: 09/15/19 20:59 Last Admin: 08/19/19 17:30 Dose: 4 mls/min Documented by: [id number] Admin: 08/19/19 08:21 Dose: 4 mls/min Documented by: [id number] Admin: 08/18/19 16:20 Dose: 4 mls/min Documented by: [id number] Admin: 08/18/19 07:50 Dose: 4 mls/min Documented by: [id number] Admin: 08/17/19 15:58 Dose: 4 mls/min Documented by: [id number] Admin: 08/17/19 07:57 Dose: 4 mls/min Documented by: [id number] Admin: 08/16/19 20:25 Dose: 4 mls/min Documented by: [id number] Daptomycin 475 mg/ Syringe 9.5 mls @ 4.75 mls/min IV Q24H RADHA; Protocol Stop: 08/30/19 11:14 Last Admin: 08/20/19 11:53 Dose: 4.75 mls/min Documented by: [id number] Ertapenem 500 mg/ Sodium (Chloride) 55 mls @ 100 mls/hr IV Q24H RADHA; Protocol Stop: 08/30/19 11:14 Last Admin: 08/20/19 11:53 Dose: 100 mls/hr Documented by: [id number] Lactobacillus Acidophilus (Floranex) 4 tab PO TIDM RADHA Stop: 09/15/19 17:59 Last Admin: 08/20/19 11:53 Dose: 4 tab Documented by: [id number] Admin: 08/20/19 08:38 Dose: 4 tab Documented by: [id number] Admin: 08/19/19 16:08 Dose: 4 tab Documented by: [id number] Admin: 08/19/19 12:27 Dose: 4 tab Documented by: [id number] Admin: 08/19/19 08:22 Dose: 4 tab Documented by: [id number] Admin: 08/18/19 16:19 Dose: 4 tab Documented by: [id number] Admin: 08/18/19 11:59 Dose: 4 tab Documented by: [id number] Admin: 08/18/19 07:48 Dose: 4 tab Documented by: [id number] Admin: 08/17/19 15:57 Dose: 4 tab Documented by: [id number] Admin: 08/17/19 13:28 Dose: 4 tab Documented by: [id number] Admin: 08/17/19 07:55 Dose: 4 tab Documented by: [id number] Admin: 08/16/19 20:24 Dose: 4 tab Documented by: [id number] Lisinopril (Zestril) 10 mg PO HS RADHA Stop: 09/15/19 20:59 Last Admin: 08/19/19 21:13 Dose: 10 mg Documented by: [id number] Admin: 08/18/19 21:31 Dose: 10 mg Documented by: [id number] Admin: 08/17/19 20:28 Dose: 10 mg Documented by: [id number] Admin: 08/16/19 20:26 Dose: 10 mg Documented by: [id number] Meloxicam (Mobic) 15 mg PO HS RADHA Stop: 09/15/19 20:59 Last Admin: 08/19/19 21:12 Dose: 15 mg Documented by: [id number] Admin: 08/18/19 21:29 Dose: 15 mg Documented by: [id number] Admin: 08/17/19 20:27 Dose: 15 mg Documented by: [id number] Admin: 08/16/19 20:26 Dose: 15 mg Documented by: [id number] Oxycodone/Acetaminophen (Percocet 5mg/325mg) 1 tab PO Q6H PRN PRN Reason: Pain Stop: 08/30/19 17:09 Last Admin: 08/19/19 21:12 Dose: 1 tab Documented by: [id number] Admin: 08/18/19 18:03 Dose: 1 tab Documented by: [id number] Admin: 08/18/19 07:47 Dose: 1 tab Documented by: [id number] Pantoprazole Sodium (Protonix) 40 mg PO HS RADHA Stop: 09/15/19 20:59 Last Admin: 08/19/19 21:13 Dose: 40 mg Documented by: [id number] Admin: 08/18/19 21:30 Dose: 40 mg Documented by: [id number] Admin: 08/17/19 20:27 Dose: 40 mg Documented by: [id number] Admin: 08/16/19 20:26 Dose: 40 mg Documented by: [id number] Spironolactone (Aldactone) 25 mg PO QAM RADHA Stop: 09/16/19 14:44 Last Admin: 08/19/19 08:22 Dose: 25 mg Documented by: [id number] Admin: 08/18/19 08:51 Dose: 25 mg Documented by: [id number] Admin: 08/17/19 17:01 Dose: 25 mg Documented by: [id number] Vitamin D (Vitamin D3) 2,000 units PO DAILY RADHA Stop: 09/16/19 08:59 Last Admin: 08/20/19 08:37 Dose: 2,000 units Documented by: [id number] Admin: 08/19/19 08:22 Dose: 2,000 units Documented by: [id number] Admin: 08/18/19 07:47 Dose: 2,000 units Documented by: [id number] Admin: 08/17/19 07:56 Dose: 2,000 units Documented by: [id number] Discontinued Medications Albuterol (Duoneb) 3 ml NEB QIDR RADHA Stop: 09/16/19 10:59 Last Admin: 08/19/19 11:17 Dose: 3 ml Documented by: [id number] Admin: 08/19/19 06:58 Dose: 3 ml Documented by: [id number] Admin: 08/18/19 19:11 Dose: 3 ml Documented by: [id number] Admin: 08/18/19 14:49 Dose: 3 ml Documented by: [id number] Admin: 08/18/19 11:15 Dose: 3 ml Documented by: [id number] Admin: 08/18/19 07:17 Dose: 3 ml Documented by: [id number] Admin: 08/17/19 19:21 Dose: 3 ml Documented by: [id number] Admin: 08/17/19 15:21 Dose: 3 ml Documented by: [id number] Admin: 08/17/19 11:18 Dose: 3 ml Documented by: [id number] Albuterol (Duoneb) 3 ml NEB Q2R PRN PRN Reason: Shortness Of Breath Or Wheezing Stop: 09/18/19 14:59 Last Admin: 08/20/19 00:20 Dose: 3 ml Documented by: [id number] Cefdinir (Omnicef Cap) 300 mg PO BID RADHA Stop: 08/22/19 09:01 Last Admin: 08/20/19 08:37 Dose: 300 mg Documented by: [id number] Admin: 08/19/19 21:12 Dose: 300 mg Documented by: [id number] Admin: 08/19/19 08:22 Dose: 300 mg Documented by: [id number] Admin: 08/18/19 21:30 Dose: 300 mg Documented by: [id number] Admin: 08/18/19 07:49 Dose: 300 mg Documented by: [id number] Admin: 08/17/19 20:28 Dose: 300 mg Documented by: [id number] Admin: 08/17/19 08:38 Dose: 300 mg Documented by: [id number] Admin: 08/16/19 20:25 Dose: 300 mg Documented by: [id number] Doxycycline Hyclate (Vibramycin) 100 mg PO BID RADHA Stop: 08/26/19 20:59 Last Admin: 08/20/19 08:37 Dose: 100 mg Documented by: [id number] Admin: 08/19/19 21:12 Dose: 100 mg Documented by: [id number] Admin: 08/19/19 08:22 Dose: 100 mg Documented by: [id number] Admin: 08/18/19 21:30 Dose: 100 mg Documented by: [id number] Admin: 08/18/19 07:50 Dose: 100 mg Documented by: [id number] Admin: 08/17/19 20:27 Dose: 100 mg Documented by: [id number] Admin: 08/17/19 07:56 Dose: 100 mg Documented by: [id number] Admin: 08/16/19 20:26 Dose: 100 mg Documented by: [id number] Furosemide (Lasix) 40 mg IV NOW STA Stop: 08/16/19 13:09 Last Admin: 08/16/19 15:49 Dose: 40 mg Documented by: [id number] Furosemide (Lasix) Confirm Administered Dose 40 mg IV .STK-MED ONE Stop: 08/16/19 15:48 Last Admin: 08/16/19 15:49 Dose: Not Given Documented by: [id number] Magnesium Sulfate/Dextrose (Magnesium Sulfate / D5w) 1 gm in 100 mls @ 100 mls/hr IV ONE ONE Stop: 08/20/19 03:46 Last Infusion: 08/20/19 04:06 Dose: 0 mls/hr Documented by: [id number] Admin: 08/20/19 03:06 Dose: 100 mls/hr Documented by: [id number] Albumin Human (Albumin 25%) 50 mls @ 50 mls/hr IV ONE ONE Stop: 08/20/19 04:44 Last Infusion: 08/20/19 04:57 Dose: 0 mls/hr Documented by: [id number] Admin: 08/20/19 03:57 Dose: 50 mls/hr Documented by: [id number] Methylprednisolone 20 mg/ (Syringe) 0.32 mls @ 1.5 mls/min IV ONE ONE Stop: 08/20/19 04:01 Last Admin: 08/20/19 03:57 Dose: 1.5 mls/min Documented by: [id number] Magnesium Sulfate/Dextrose (Magnesium Sulfate / D5w) 1 gm in 100 mls @ 100 m ls/hr IV ONE ONE Stop: 08/20/19 05:29 Last Infusion: 08/20/19 08:46 Dose: 0 mls/hr Documented by: [id number] Admin: 08/20/19 05:52 Dose: 100 mls/hr Documented by: [id number] Sodium Chloride (Nss) 500 mls @ 250 mls/hr IV .Q2H ONE Stop: 08/20/19 05:58 Last Admin: 08/20/19 08:47 Dose: Not Given Documented by: [id number] Albumin Human (Albumin 25%) 50 mls @ 50 mls/hr IV ONE ONE Stop: 08/20/19 05:13 Last Infusion: 08/20/19 05:53 Dose: 0 mls/hr Documented by: [id number] Admin: 08/20/19 04:53 Dose: 50 mls/hr Documented by: [id number] Ipratropium [place] (Atrovent 0.02% 0.5mg/2.5ml) 0.5 mg INH ONE ONE Stop: 08/20/19 02:46 Last Admin: 08/20/19 02:54 Dose: 0.5 mg Documented by: [id number] Levalbuterol HCl (Xopenex 1.25mg/0.5ml Neb) 1.25 mg INH ONE ONE Stop: 08/20/19 02:46 Last Admin: 08/20/19 02:54 Dose: 1.25 mg Documented by: [id number] Potassium Chloride (Klor-Con M20) 20 meq PO HS RADHA Stop: 09/15/19 20:59 Last Admin: 08/19/19 21:13 Dose: 20 meq Documented by: [id number] Admin: 08/18/19 21:28 Dose: 20 meq Documented by: [id number] Admin: 08/17/19 19:28 Dose: 20 meq Documented by: [id number] Admin: 08/16/19 20:26 Dose: 20 meq Documented by: [id number] Potassium Chloride (Klor-Con M20) 40 meq PO 1445 ONE Stop: 08/17/19 14:46 Last Admin: 08/17/19 15:56 Dose: 40 meq Documented by: [id number] Potassium Chloride (Klor-Con M20) 20 meq PO QAM RADHA Stop: 09/17/19 08:59 Last Admin: 08/20/19 08:37 Dose: 20 meq Documented by: [id number] Admin: 08/19/19 08:22 Dose: 20 meq Documented by: [id number] Admin: 08/18/19 07:49 Dose: 20 meq Documented by: [id number] Potassium Chloride (Klor-Con M20) 40 meq PO NOW STA Stop: 08/20/19 02:48 Last Admin: 08/20/19 03:07 Dose: 40 meq Documented by: [id number] Medical Decision Making Differential Diagnosis Differential diagnoses includes but is not limited to pneumonia, bronchitis, COPD/Asthma exacerbation, pneumothorax, pulmonary embolism, congestive heart failure, acute coronary syndrome Medical Records Attestation: I reviewed the patient's medical records. Home Medications Current Medication List: was personally reviewed by me Laboratory Data Attestation: I reviewed the patient's lab results. Result diagrams: 08/20/19 03:11 08/20/19 08:14 Lab Results 08/16/19 08/16/19 08/16/19 Range/Units 14:06 14:06 14:06 WBC 7.05 (4.8-10.8) K/uL RBC 4.31 L (4.7-6.1) M/uL Hgb 13.4 L (14.0-18.0) g/dL Hct 40.4 L (42-52) % MCV 93.7 (80-100) fL MCH 31.1 (25-34) pg MCHC 33.2 (32-36) g/dL RDW Std Deviation 50.7 H (36.4-46.3) fL RDW Coeff of [place] 14.9 H (11.5-14.5) % Plt Count 197 (130-400) K/uL MPV 10.3 (7.4-10.4) fL Immature Gran % (Auto) 0.1 % Neut % (Auto) 63.2 % Lymph % (Auto) 22.4 % [place] % (Auto) 8.8 % Eos % (Auto) 5.1 % Baso % (Auto) 0.4 % Immature Gran # (Auto) 0.01 (0.00-0.02) K/uL Neut # (Auto) 4.45 (1.4-6.5) K/uL Lymph # (Auto) 1.58 (1.2-3.4) K/uL [place] # (Auto) 0.62 H (0.11-0.59) K/uL Eos # (Auto) 0.36 (0-0.5) K/uL Baso # (Auto) 0.03 (0-0.2) K/uL PT 10.3 (9.0-12.0) Seconds INR 1.0 (0.9-1.1) APTT 27.4 (21.0-31.0) Seconds PTT Ratio 1.0 Sodium 142 (136-145) mmol/L Potassium 3.7 (3.5-5.1) mmol/L Chloride 106 (98-107) mmol/L Carbon Dioxide 32 (21-32) mmol/L Anion Gap 5.0 (3-11) BUN 18 (7-18) mg/dl Creatinine 0.85 (0.6-1.4) mg/dl Est Cr Clr Drug Dosing 180.4 ml/min Est GFR ( Amer) 116.1 Est GFR (Non-Af Amer) 100.2 BUN/Creatinine Ratio 21.3 H (10-20) Glucose 87 (70-99) mg/dl Calcium 9.1 (8.5-10.1) mg/dl Magnesium 2.2 (1.8-2.4) mg/dl Total Bilirubin 0.6 (0.2-1) mg/dl AST 22 (15-37) U/L ALT 27 (12-78) U/L Alkaline Phosphatase 164 H (45-117) U/L Troponin I < 0.015 (0-0.045) ng/ml Total Protein 7.1 (6.4-8.2) gm/dl Albumin 3.2 L (3.4-5.0) gm/dl Globulin 3.9 (2.5-4.0) gm/dl Albumin/Globulin Ratio 0.8 L (0.9-2) Imaging Data Radiologist's Impression: Radiology results as stated below per my review and the radiologist's interpretation: XR chest 1V portable HISTORY: 54 years-old Male Dyspnea acute shortness of breath COMPARISON: None available TECHNIQUE: Portable AP view of the chest FINDINGS: Cardiac silhouette is enlarged, possibly accentuated by AP technique. Mild right hemidiaphragmatic elevation. No pneumothorax, large pleural effusion or focal airspace consolidation typical for pneumonia. No overt pulmonary edema. Degenera tive changes of the shoulders and spine. IMPRESSION: Cardiomegaly without acute process. The above report was generated using voice recognition software. It may contain grammatical, syntax or spelling errors. Electronically signed by: Lorne Mott M.D. 08/16/2019 1:22 PM ECG Data Attestation: I personally reviewed and interpreted this ECG as follows: Indication: SOB/dyspnea Rate (beats per minute): 68 Rhythm: normal sinus Findings: + other (Previous septal infarct. QTc 493) and + RBBB; no PAC, no PVC and no ectopy Blood Pressure Blood Pressure Findings: Elevated blood pressure Blood Pressure Disposition: further management by hospitalist MDM Narrative This pt was evaluated and appeared to be in no distress. IV access was obtained and lab work was drawn. Pt was placed on the monitor and storage bin tender. IV access was obtained and lab work was drawn. CXR was performed and reveals cardiomegaly. IV lasix 40 mg was given. VSS and lab work was drawn. WBC is WNL. Creatinine is 0.85 with trop of <0.015. GIven massive reported weight gain and multiple comorbidities, the hospitalist was consulted for further management. Impression & Plan Fluid overload, CHF (congestive heart failure) Discharge Plan Visit Data *Final* Discharge Date/Time: 08/16/19 16:01 Chief Complaint: Shortness of Breath/Dyspnea Stated Complaint: SOB ED Provider: Selene Hwang Discharge Problem: Fluid overload, CHF (congestive heart failure) Patient Disposition: Being Evaluated by Hospitalist Discharge Instructions Interventions: ED Discharge Assessment Last Done: 08/16/19 16:01 Discharge Problem: Fluid overload Qualifiers: Hypervolemia type: unspecified Qualified Code(s): E87.70 - Fluid overload, unspecified CHF (congestive heart failure) Qualifiers: Heart failure type: unspecified Heart failure chronicity: chronic Qualified Code(s): I50.9 - Heart failure, unspecified The scribe's documentation has been prepared under my direction and personally reviewed by me in its entirety. I confirm that the note above accurately reflects all work, treatment, procedures, and medical decision making performed by me.
[2019-08-16] MEDS ORDERED: LACTOBACILLUS ACIDOPHILUS PO SCH (21:00)
[2019-08-16] MEDS ORDERED: DOXYCYCLINE HYCLATE 100 MG CAP PO SCH (21:00)
[2019-08-17 07:04] LABS: Hematocrit (blood only) 40.8 % (42-52); Hemoglobin 13.4 g/dL (14.0-18.0); Mean Corpuscular Hemoglobin 30.9 pg (25-34); Mean Corpuscular Hgb Conc 32.8 g/dL (32-36); Mean Platelet Volume 10.5 fL (7.4-10.4); Platelet Count 185 K/uL (130-400); Red Blood Count 4.34 M/uL (4.7-6.1); White Blood Count 6.27 K/uL (4.8-10.8)
[2019-08-17 07:36] LABS: Albumin Level 3.2 gm/dl (3.4-5.0); BUN Creatinine Ratio 19.5 (10-20); Calcium 8.4 mg/dl (8.5-10.1); Est GFR (African American) 101.1; Est GFR (Non-African American) 87.2; Potassium 3.6 mmol/L (3.5-5.1)
[2019-08-17 07:39] LABS: Albumin Globulin Ratio 0.8 (0.9-2); Bilirubin,Total 0.6 mg/dl (0.2-1); Globulin 4.2 gm/dl (2.5-4.0); Total Protein 7.4 gm/dl (6.4-8.2)
[2019-08-17] MEDS: LACTOBACILLUS ACIDOPHILUS (FLORANEX) TAB PO SCH ×3 (07:55→15:57)
[2019-08-17] MEDS: CIPROFLOXACIN HCL 0.3% OP SOLN 2.5 ML BTL OPB SCH ×4 (07:55→20:25)
[2019-08-17] MEDS: CHOLECALCIFEROL 1,000 UNITS TAB PO SCH (07:56)
[2019-08-17] MEDS: DOXYCYCLINE HYCLATE 100 MG CAP PO SCH ×2 (07:56→20:27)
[2019-08-17] MEDS: ASPIRIN 81 MG ECTAB PO SCH (07:57)
[2019-08-17] MEDS: FUROSEMIDE 40 MG in SYRINGE 0 ML IV SCH ×2 (07:57→15:58)
[2019-08-17] MEDS: CEFDINIR 300 MG CAP PO SCH ×2 (08:38→20:28)
--- NOTE | 2019-08-17 11:07 | Hospitalist Progress Note ---
Date of Service August 17, 2019 Assessment & Plan (1) Acute on chronic diastolic CHF (congestive heart failure): This is a 54-year-old male who has significant past medical history of HTN, HLD, Pre Diabetes, pickwickian syndrome, history of right heart failure/diastolic CHF, SIDRA on BiPAP at HS, PVD, chronic venous insufficiency, history of DVT, GERD, depression, tobacco abuse who presents to [facility] ED at the referral of cardiology clinic secondary to shortness of breath and 30 pound weight gain in 1 week. In cardiology clinic seen by Dr. Alston with complaints of SOB/LUNA. Weight noted to be 197kg today and on 08/08/19 weight 181.4kg In ED CXR without acute process CBC and CMP relatively benign Received IV Lasix 40mg x 1 in ED continue Lasix 40mg IV [id number] Weight this morning down from 197kg --> 191.3 ,( -1630ml) monitor strict I and O Daily weight HH and Low NA diet, FR of 1800ml echocardiogram EF 60-65%, grade I DD appreciate recommendations from cardiology (2) Bilateral lower leg cellulitis: s/p recent hospitalization at [facility] for cellulitis following outpatient wound care discharged on cefnidir 300mg bid x 10 days (day 5/10)/ Doxycycline 100mg bid x 10 days (day 5/10) continue antibiotic along with probiotic wound care consulted No active cellulitis apparent on exam, but will complete antibiotic course (3) Lymphedema of both lower extremities: as above (4) Bilateral conjunctivitis: L > R, appears to be improving cipro opth 2 gtt q4hwa x 5 days no photophobia, vision changes monitor closely hx of cataract extraction/lens to L eye in past (5) URI (upper respiratory infection): duoneb QID, incentive spirometry muccinex Q12hr monitor Saturating well on room air pt on doxy and cefnidir for cellulitis which will assist in treating any bacterial component of URI but likely allergic vs viral (6) Hypertension: blood pressure controlled on lisinopril monitor (7) Hyperlipidemia: continue statin (8) Pre-diabetes: A1C 6.1 fasting glucose 114 encourage lifestyle modifications given multiple co morbidities (9) Sleep apnea: Bipap at HS (10) COPD (chronic obstructive pulmonary disease): no acute exacerbation continue advair QID albuterol (11) Tobacco abuse: declines nicotine patch encourage smoking cessation (12) Morbid obesity with BMI of 50.0-59.9, adult: encourage lifestyle modifications (13) Chronic back pain: continue prn percocet monitor (14) DVT prophylaxis: Lovenox Disposition: admit to telemetry Follow up: PCP Dr. Roy upon discharge, along with appropriate wound care follow up Patient was seen and examined in collaboration with Dr. Waldrop, please see addendum Supervising Physician Co-Signing Physician Notes Attending Addendum: care coordinated with JANET Webb. please refer to her notes for full details, I agree with her notes patient seen and examined, records reviewed by myself as well on exam, patient seen resting in chair, comfortable states he feels improved compared to yesterday though still has chest/nasal congestion, dry cough no chest pain no other symptoms VS noted and reviewed oriented x 3, not in distress, speaks in sentences with no effort nor accessory muscle use normal rate, regular rhythm, no murmurs diminished breath sounds bilaterally non distended, soft, nontender (+) grade 2 BL leg edema no neuro deficits WBC 6.27 Hg 13.4 Crea 0.99 ASSESSMENT AND PLAN ACUTE ON CHRONIC DIASTOLIC CHF continue Lasix IV ACUTE SINUSITIS add Zyrtex, Mucinex, Nebs other diagnoses and plan of care as per JANET Webb notes Robert Waldrop MD Subjective Patient seen and examined in room 207. Follow-up for acute diastolic CHF, URI, bacterial conjunctivitis. Patient is sitting upright in bedside chair. Continues to have, "chest congestion." Complains of shortness of breath with exertion, cough productive light green sputum, wheezing, crusting and discharge from left eye, stuffy nose. Noticed increased in urination after IV diuretic therapy. Denies fever, chills, sweats, lightheadedness, dizziness, estephanie chest pain, hemoptysis, nausea, vomiting, abdominal pain. His appetite is normal. He is requesting something for cough. Review of Systems Review of Systems: All systems reviewed & are unremarkable except as noted in HPI & below Physical Exam Physical Exam: Gen:Morbidly obese, M, sitting up in bedside chair, pleasent, NAD, A&O x3 HEENT: Normocephalic, atraumatic, conjunctivae moist and injecte b/l L > R sparing limbus, dried drainage at lateral canthus, sclerae anicteric, mucous membranes moist. Lung: Clear to Auscultation bilaterally, no wheezes/rales/rhonchi Heart: Regular rate, regular rhythm, no murmurs, rubs, or gallops Abdomen: obese abd, firm, NT, +BS x 4 Extremities: B/L significant lymphedema b/l with chronic venous stasis changes, no active cellulitis apparent Skin: Warm, + rash ant/post thorax, pinpoint papular with excoriation, negative turgor. Results & Data Vital Signs (Past 12 Hours) Vital Signs Temp Pulse Pulse Resp BP BP Pulse Ox 08/17/19 08:59 66 08/17/19 07:37 36.5 C 65 22 121/86 95 08/17/19 04:11 36.4 C L 54 L 15 119/54 L 95 08/17/19 00:00 66 08/16/19 23:36 36.5 C 58 L 16 161/75 H 95
[2019-08-17] MEDS: ALBUT/IPRATROP 3MG/0.5MG NEB 3 ML VIAL NEB SCH ×3 (11:18→19:21)
[2019-08-17] MEDS: CETIRIZINE HCL 10 MG TABLET PO SCH (13:57)
[2019-08-17] MEDS ORDERED: POTASSIUM CHLORIDE 20 MEQ TABCR PO ONE (14:45)
--- NOTE | 2019-08-17 14:50 | Cardiology Progress Note ---
Date of Service August 17, 2019 Assessment & Plan (1) Acute on chronic diastolic CHF (congestive heart failure): (2) Morbid obesity with BMI of 50.0-59.9, adult: (3) Obesity hypoventilation syndrome: (4) RBBB: Patient is a history of chronic right bundle branch block, likely due to his underlying obstructive sleep apnea. Normal biventricular systolic function noted on echocardiogram yesterday. Review of his outpatient chart reveals that in February 2018 he had been on a daily regimen of torsemide 80 mg daily. He had been well compensated at the time of that outpatient visit with cardiology in [place]. He states in the meantime, his diuretic dose had been decreased due to concerns of his kidneys. At this time continue current dose of furosemide 40 mg IV 2 times per day. Increase as necessary, but I think his output has been adequate enough that I am going to keep the dose the same for now. Replace potassium, I have requested 40 mEq of potassium chloride now, and 20 mEq daily starting tomorrow morning. Start spironolactone for diuretic and potassium effect. DVT prophylaxis continues have cutaneous Lovenox. Conference of metabolic panel ordered for morning. Subjective Chief complaint: Follow-up shortness of breath, lower extremity and abdominal swelling Subjective: Patient feels improved. He has had a total output of 4 L of urine observed thus far this hospital stay with a net balance of -2.7 L. Telemetry re veals sinus rhythm in the range of 70 bpm. Review of Systems Review of Systems: All systems reviewed & are unremarkable except as noted in HPI & below Physical Exam Physical Exam: Temp Pulse Resp BP Pulse Ox 36.4 C L 56 L 16 145/70 H 93 08/17/19 11:06 08/17/19 11:20 08/17/19 11:20 08/17/19 11:06 08/17/19 11:20 Constitutional: WD/WN, vitals as above Respiratory: Auscultation: + diminished lung sounds (Mildly decreased breath sounds the bases); no crackles and no rales Cardiovascular: Distant heart sounds, regular rhythm 2+ lower extremity edema still present, mildly improved compared to yesterday Chronic venous stasis changes of the lower extremities, skin mildly erythemat ous, with no breakdown Neurologic: PERRL, EOMI, accommodation nl, no face palsy, no dysarthria Results & Data Vital Signs (Past 12 Hours) Vital Signs Temp Pulse Pulse Resp BP BP Pulse Ox 08/17/19 11:20 56 L 16 93 08/17/19 11:06 36.4 C L 55 L 20 145/70 H 93 08/17/19 08:59 66 08/17/19 07:37 36.5 C 65 22 121/86 95 08/17/19 04:11 36.4 C L 54 L 15 119/54 L 95
[2019-08-17] MEDS: SPIRONOLACTONE 25 MG TAB PO SCH (17:01)
[2019-08-17] MEDS: POTASSIUM CHLORIDE 20 MEQ TABCR PO SCH (19:28)
[2019-08-17] MEDS: ENOXAPARIN INJ 40 MG/0.4 ML SYR SQ SCH (20:25)
[2019-08-17] MEDS: ATORVASTATIN 40 MG TAB PO SCH (20:26)
[2019-08-17] MEDS: PANTOprazole 40 MG TAB PO SCH (20:27)
[2019-08-17] MEDS: MELOXICAM 7.5 MG TAB PO SCH (20:27)
[2019-08-17] MEDS: guaiFENesin 600 MG TABCR PO SCH (20:27)
[2019-08-17] MEDS: lisinopriL 10 MG TAB PO SCH (20:28)
[2019-08-18 06:55] LABS: Albumin Level 3.3 gm/dl (3.4-5.0); BUN Creatinine Ratio 24.6 (10-20); Bilirubin Direct 0.1 mg/dl (0-0.2); Calcium 8.7 mg/dl (8.5-10.1); Creatinine Clr Calc Pharmacy 173.4 ml/min; Est GFR (African American) 115.6; Est GFR (Non-African American) 99.7; Potassium 3.8 mmol/L (3.5-5.1)
[2019-08-18 06:58] LABS: Albumin Globulin Ratio 0.8 (0.9-2); Bilirubin,Total 0.7 mg/dl (0.2-1); Globulin 4.1 gm/dl (2.5-4.0); Total Protein 7.4 gm/dl (6.4-8.2)
[2019-08-18] MEDS: ALBUT/IPRATROP 3MG/0.5MG NEB 3 ML VIAL NEB SCH ×4 (07:17→19:11)
[2019-08-18] MEDS: CHOLECALCIFEROL 1,000 UNITS TAB PO SCH (07:47)
[2019-08-18] MEDS: OXYCODONE/ACETAMINOPHEN 5mg/325mg TAB PO PRN ×2 (07:47→18:03)
[2019-08-18] MEDS: LACTOBACILLUS ACIDOPHILUS (FLORANEX) TAB PO SCH ×3 (07:48→16:19)
[2019-08-18] MEDS: CETIRIZINE HCL 10 MG TABLET PO SCH (07:48)
[2019-08-18] MEDS: CEFDINIR 300 MG CAP PO SCH ×2 (07:49→21:30)
[2019-08-18] MEDS: POTASSIUM CHLORIDE 20 MEQ TABCR PO SCH ×2 (07:49→21:28)
[2019-08-18] MEDS: ASPIRIN 81 MG ECTAB PO SCH (07:49)
[2019-08-18] MEDS: guaiFENesin 600 MG TABCR PO SCH ×2 (07:49→21:28)
[2019-08-18] MEDS: DOXYCYCLINE HYCLATE 100 MG CAP PO SCH ×2 (07:50→21:30)
[2019-08-18] MEDS: CIPROFLOXACIN HCL 0.3% OP SOLN 2.5 ML BTL OPB SCH ×4 (07:50→21:26)
[2019-08-18] MEDS: FUROSEMIDE 40 MG in SYRINGE 0 ML IV SCH ×2 (07:50→16:20)
[2019-08-18] MEDS: SPIRONOLACTONE 25 MG TAB PO SCH (08:51)
--- NOTE | 2019-08-18 10:55 | Cardiology Progress Note ---
Date of Service August 18, 2019 Assessment & Plan (1) Acute on chronic diastolic CHF (congestive heart failure): (2) Morbid obesity with BMI of 50.0-59.9, adult: (3) Obesity hypoventilation syndrome: (4) RBBB: Continue intravenous Lasix 40 mg twice daily. Daily potassium supplementation ordered. Continue Aldactone 25 mg daily. Follow fluid balance, daily weight, GFR, and electrolytes closely. Transition to oral torsemide at discharge. Subjective Patient seen and examined at the bedside. Fluid balance -3400 cc over the last 24-hour. His weight is down 19 pounds since admission. Lower edema improving. Renal function remains stable. Patient reports cramping of his lower extremities last night. Typically wears BiPAP nightly at home, however, unable to utilize BiPAP during hospitalization as there is no humidifier. Intolerant to BiPAP without the humidifier according to patient. Orthopnea unchanged. Denies paroxysmal nocturnal dyspnea. Reports cough with occasional chest heaviness. No dysrhythmias on telemetry. Offers no other concerns/complaints at this time. Review of Systems Review of Systems: All systems reviewed & are unremarkable except as noted in HPI & below Physical Exam Physical Exam: General: NAD, AAO x3, well nourished. Morbid obesity. HEENT: Normocephalic. Atraumatic. Conjunctiva pink, no scleral icterus. Neck: No carotid bruits, the carotid upstrokes are brisk. No JVD. No HJR Heart: Regular normal S-1 and S-2 no S-3 or S-4 gallop. No murmurs or rub appreciated. PMI is not displaced. No RV heave. Lungs: Clear bilateral without rales , rhonchi, or wheeze. Abdomen: Normal bowel sounds. Soft. Nontender. No masses or or ganomegaly. No abdominal bruits. Extremities: 2+ bilateral lower extremity pitting edema to the knees, +stasis changes. + Clear drainage at the heels, no ulceration. Pulses: radial=2/4. Neuro: Cranial nerves grossly intact. No focal motor deficit. Results & Data Vital Signs (Past 12 Hours) Vital Signs Temp Pulse Pulse Resp BP Pulse Ox 08/18/19 08:12 36.7 C 59 L 20 130/64 94 08/18/19 07:47 53 L 08/18/19 07:19 58 L 16 96 08/18/19 04:10 36.4 C L 60 19 151/79 H 92 08/17/19 23:46 36.7 C 59 L 20 132/65 94 Laboratory Results Laboratory Results - last 24 hr 08/18/19 05:56 Sodium 139 Potassium 3.8 Chloride 104 Carbon Dioxide 32 Anion Gap 3.0 BUN 21 H Creatinine 0.86 Est Cr Clr Drug Dosing 173.4 Est GFR ( Amer) 115.6 Est GFR (Non-Af Amer) 99.7 BUN/Creatinine Ratio 24.6 H Glucose 126 H Calcium 8.7 Total Bilirubin 0.7 Direct Bilirubin 0.1 AST 13 L ALT 23 Alkaline Phosphatase 150 H Total Protein 7.4 Albumin 3.3 L Globulin 4.1 H Albumin/Globulin Ratio 0.8 L Diagnostic Findings ECG: Sinus rhythm, right bundle branch block.
--- NOTE | 2019-08-18 14:50 | Hospitalist Progress Note ---
Date of Service August 18, 2019 Assessment & Plan (1) Acute on chronic diastolic CHF (congestive heart failure): diuresing well continue Lasix IV, Spironolactone (2) Bilateral lower leg cellulitis: improving continue cefnidir 300mg bid x 10 days (day 6/10)/ Doxycycline 100mg bid x 10 days (day 6/10) (3) Lymphedema of both lower extremities: as above (4) Bilateral conjunctivitis: improving cipro opth 2 gtt q4hwa x 5 days (5) URI (upper respiratory infection): improving cpntinue: duoneb QID, incentive spirometry muccinex Q12hr Cefdinir, Doxy add Flonase (6) Hypertension: blood pressure controlled on lisinopril monitor (7) Hyperlipidemia: continue statin (8) Pre-diabetes: A1C 6.1 fasting glucose 114 encourage lifestyle modifications given multiple co morbidities (9) Sleep apnea: Bipap at HS (10) COPD (chronic obstructive pulmonary disease): no acute exacerbation continue advair QID albuterol (11) Tobacco abuse: declines nicotine patch encourage smoking cessation (12) Morbid obesity with BMI of 50.0-59.9, adult: encourage lifestyle modifications (13) Chronic back pain: continue prn percocet monitor (14) DVT prophylaxis: Lovenox Disposition: admit to telemetry Follow up: PCP Dr. Roy upon discharge, along with appropriate wound care follow up Subjective ff up for acute on chronic diastolic CHF seen sitting up in bedside chair, comfortable,not in distress states he feels improved compared to yesterday chest congestion improving, still has nasal congestion and rhinorrhea no problems with vision denies chest pain, dyspnea, dizziness, palpitations denies other symptoms Review of Systems Review of Systems: All systems reviewed & are unremarkable except as noted in HPI & below Physical Exam Physical Exam: General- oriented x 3, not in distress, speaks in sentences with no effort or accessory muscle use Eyes- anicteric Neck- no JVD Lungs- clear breath sounds bilaterally, no crackles/wheezing Heart- normal rate, regular rhythm; no murmurs Abdomen- normal bowel sounds, nondistended, soft, nontender Extremities- grade 2 bilateral lower leg edema- improving Neuro- alert, oriented x 3; no gross focal neurologic deficits Skin- warm & dry Results & Data Vital Signs (Past 12 Hours) Vital Signs Temp Pulse Pulse Resp BP Pulse Ox 08/18/19 14:49 58 L 20 95 08/18/19 11:32 36.5 C 58 L 18 133/66 94 08/18/19 11:16 58 L 18 94 08/18/19 08:12 36.7 C 59 L 20 130/64 94 08/18/19 07:47 53 L 08/18/19 07:19 58 L 16 96 08/18/19 04:10 36.4 C L 60 19 151/79 H 92 Laboratory Results Laboratory Results - last 24 hr 08/18/19 05:56 Sodium 139 Potassium 3.8 Chloride 104 Carbon Dioxide 32 Anion Gap 3.0 BUN 21 H Creatinine 0.86 Est Cr Clr Drug Dosing 173.4 Est GFR ( Amer) 115.6 Est GFR (Non-Af Amer) 99.7 BUN/Creatinine Ratio 24.6 H Glucose 126 H Calcium 8.7 Total Bilirubin 0.7 Direct Bilirubin 0.1 AST 13 L ALT 23 Alkaline Phosphatase 150 H Total Protein 7.4 Albumin 3.3 L Globulin 4.1 H Albumin/Globulin Ratio 0.8 L
[2019-08-18] MEDS: FLUTICASONE PROPIONATE NA SPR 16 GM BTL SCH (18:04)
[2019-08-18] MEDS: ENOXAPARIN INJ 40 MG/0.4 ML SYR SQ SCH (21:27)
[2019-08-18] MEDS: ATORVASTATIN 40 MG TAB PO SCH (21:27)
[2019-08-18] MEDS: MELOXICAM 7.5 MG TAB PO SCH (21:29)
[2019-08-18] MEDS: PANTOprazole 40 MG TAB PO SCH (21:30)
[2019-08-18] MEDS: lisinopriL 10 MG TAB PO SCH (21:31)
[2019-08-19] MEDS: ALBUT/IPRATROP 3MG/0.5MG NEB 3 ML VIAL NEB SCH ×2 (06:58→11:17)
[2019-08-19] MEDS: FUROSEMIDE 40 MG in SYRINGE 0 ML IV SCH ×2 (08:21→17:30)
[2019-08-19] MEDS: LACTOBACILLUS ACIDOPHILUS (FLORANEX) TAB PO SCH ×3 (08:22→16:08)
[2019-08-19] MEDS: guaiFENesin 600 MG TABCR PO SCH ×2 (08:22→21:14)
[2019-08-19] MEDS: CHOLECALCIFEROL 1,000 UNITS TAB PO SCH (08:22)
[2019-08-19] MEDS: CEFDINIR 300 MG CAP PO SCH ×2 (08:22→21:12)
[2019-08-19] MEDS: ASPIRIN 81 MG ECTAB PO SCH (08:22)
[2019-08-19] MEDS: DOXYCYCLINE HYCLATE 100 MG CAP PO SCH ×2 (08:22→21:12)
[2019-08-19] MEDS: SPIRONOLACTONE 25 MG TAB PO SCH (08:22)
[2019-08-19] MEDS: CETIRIZINE HCL 10 MG TABLET PO SCH (08:22)
[2019-08-19] MEDS: POTASSIUM CHLORIDE 20 MEQ TABCR PO SCH ×2 (08:22→21:13)
[2019-08-19] MEDS: CIPROFLOXACIN HCL 0.3% OP SOLN 2.5 ML BTL OPB SCH ×4 (08:23→21:14)
[2019-08-19] MEDS: FLUTICASONE PROPIONATE NA SPR 16 GM BTL SCH (08:23)
--- NOTE | 2019-08-19 09:49 | Cardiology Progress Note ---
Date of Service August 19, 2019 Assessment & Plan (1) Acute on chronic diastolic CHF (congestive heart failure): (2) Morbid obesity with BMI of 50.0-59.9, adult: (3) Obesity hypoventilation syndrome: (4) RBBB: Repeat BMP now then daily. Replace electrolytes as needed. Continue intravenous Lasix 40 mg twice daily pending review of repeat lab studies. Daily potassium supplementation ordered. Continue Aldactone 25 mg daily. Follow fluid balance, daily weight, GFR, and electrolytes closely. Transition to oral torsemide at discharge. Subjective Patient seen and examined the bedside. Fluid balance -2700 cc over the past 24 hours. Edema improving. Cough unchanged. Chronic orthopnea unchanged. Patient denies palpitations or lightheadedness. Chest pressure mildly improved. No dysrhythmias on telemetry. Offers no new concerns/complaints at this time per Review of Systems Review of Systems: All systems reviewed & are unremarkable except as noted in HPI & below Physical Exam Physical Exam: General: NAD, AAO x3, well nourished. Morbid obesity. HEENT: Normocephalic. Atraumatic. Conjunctiva pink, no scleral icterus. Neck: No carotid bruits, the carotid upstrokes are brisk. No JVD. No HJR Heart: Regular normal S-1 and S-2 no S-3 or S-4 gallop. No murmurs or rub appreciated. PMI is not displaced. No RV heave. Lungs: Clear bilateral without rales , rhonchi, or wheeze. Abdomen: Normal bowel sounds. Soft. Nontender. No masses or organomegaly. No abdominal bruits. Extremities: 2+ bilateral lower extremity pitting edema to the knees, +stasis changes. No ulceration. Pulses: radial=2/4. Neuro: Cranial nerves grossly intact. No focal motor deficit. Results & Data Vital Signs (Past 12 Hours) Vital Signs Temp Pulse Resp BP Pulse Ox 08/19/19 07:50 36.5 C 59 L 19 135/57 L 97 08/19/19 07:00 59 L 20 92 08/19/19 03:55 36.5 C 56 L 20 121/77 94 08/19/19 00:14 36.7 C 58 L 18 102/74 96
[2019-08-19 10:28] LABS: Calcium 9.2 mg/dl (8.5-10.1); Creatinine Clr Calc Pharmacy 141.4 ml/min; Est GFR (African American) 94.1; Est GFR (Non-African American) 81.2; Potassium 3.7 mmol/L (3.5-5.1)
[2019-08-19] MEDS ORDERED: ALBUT/IPRATROP 3MG/0.5MG NEB 3 ML VIAL NEB PRN (14:13)
[2019-08-19] MEDS: IPRATROPIUM BROMIDE/ALBUTEROL respimat INH INH SCH ×2 (16:08→21:12)
--- NOTE | 2019-08-19 18:01 | Hospitalist Progress Note ---
Date of Service August 19, 2019 Assessment & Plan (1) Acute on chronic diastolic CHF (congestive heart failure): diuresing well continue Lasix IV, Spironolactone (2) Bilateral lower leg cellulitis: Continues to improve continue cefnidir 300mg bid x 10 days (day 6/10)/ Doxycycline 100mg bid x 10 days (day 6/10) (3) Lymphedema of both lower extremities: as above (4) Bilateral conjunctivitis: improving cipro opth 2 gtt q4hwa x 5 days (5) URI (upper respiratory infection): Tenderness improved Continue: duoneb QID, incentive spirometry muccinex Q12hr Cefdinir, Doxy Flonase (6) Hypertension: blood pressure controlled on lisinopril monitor (7) Hyperlipidemia: continue statin (8) Pre-diabetes: A1C 6.1 fasting glucose 114 encourage lifestyle modifications given multiple co morbidities (9) Sleep apnea: Bipap at HS (10) COPD (chronic obstructive pulmonary disease): no acute exacerbation continue advair QID albuterol (11) Tobacco abuse: declines nicotine patch encourage smoking cessation (12) Morbid obesity with BMI of 50.0-59.9, adult: encourage lifestyle modifications (13) Chronic back pain: continue prn percocet monitor (14) DVT prophylaxis: Lovenox Disposition: admit to telemetry Follow up: PCP Dr. Roy upon discharge, along with appropriate wound care follow up Subjective Follow-up for chronic diastolic CHF exacerbation Seen resting in bed watching TV Comfortable States he continues to feel improved Chest congestion improving as well as rhinorrhea Less coughing No chest pain or palpitations or dizziness No other symptoms Review of Systems Review of Systems: All systems reviewed & are unremarkable except as noted in HPI & below Physical Exam Physical Exam: General- oriented x 3, not in distress, speaks in sentences with no effort or accessory muscle use Eyes- anicteric Neck- no JVD Lungs-clear breath sounds, no crackles or wheezing Heart- normal rate, regular rhythm; no murmurs Abdomen- normal bowel sounds, nondistended, soft, nontender Extremities-grade 1 lower leg edema improving Neuro- alert, oriented x 3; no gross focal neurologic deficits Skin- warm & dry Results & Data Vital Signs (Past 12 Hours) Vital Signs Temp Pulse Resp BP BP Pulse Ox 08/19/19 15:28 36.7 C 64 20 153/71 H 97 08/19/19 12:13 36.8 C 77 18 145/50 H 91 08/19/19 11:17 67 18 93 08/19/19 07:50 36.5 C 59 L 19 135/57 L 97 08/19/19 07:00 59 L 20 92 Laboratory Results Laboratory Results - last 24 hr 08/19/19 09:53 Sodium 141 Potassium 3.7 Chloride 103 Carbon Dioxide 33 H Anion Gap 5.0 BUN 24 H Creatinine 1.05 Est Cr Clr Drug Dosing 141.4 Est GFR ( Amer) 94.1 Est GFR (Non-Af Amer) 81.2 BUN/Creatinine Ratio 23.0 H Glucose 165 H Calcium 9.2
[2019-08-19] MEDS: OXYCODONE/ACETAMINOPHEN 5mg/325mg TAB PO PRN (21:12)
[2019-08-19] MEDS: MELOXICAM 7.5 MG TAB PO SCH (21:12)
[2019-08-19] MEDS: PANTOprazole 40 MG TAB PO SCH (21:13)
[2019-08-19] MEDS: lisinopriL 10 MG TAB PO SCH (21:13)
[2019-08-19] MEDS: ATORVASTATIN 40 MG TAB PO SCH (21:14)
[2019-08-19] MEDS: ENOXAPARIN INJ 40 MG/0.4 ML SYR SQ SCH (21:14)
[2019-08-20] MEDS ORDERED: XOPENEX/ATROVENT 1.25mg/0.5MG NEB COMBO NEB STA (02:38)
[2019-08-20] MEDS ORDERED: IPRATROPIUM BROMIDE NEB SOLN 0.02% 2.5 ML VIAL INH ONE (02:45)
[2019-08-20] MEDS ORDERED: LEVALBUTEROL 1.25MG/0.5ML NEB INH ONE (02:45)
[2019-08-20] MEDS ORDERED: MAGNESIUM SULFATE / D5W 1 GM/100 ML BAG IV ONE ×2 (02:47→04:30)
[2019-08-20] MEDS ORDERED: POTASSIUM CHLORIDE 20 MEQ TABCR PO STA (02:47)
[2019-08-20 03:31] LABS: Partial Thromboplastin Ratio 0.9; Partial Thromboplastin Time 25.1 Seconds (21.0-31.0)
[2019-08-20 03:40] LABS: Basophils # (auto) 0.02 K/uL (0-0.2); Basophils % (auto) 0.1 %; Eosinophils # (auto) 0.04 K/uL (0-0.5); Eosinophils % (auto) 0.2 %; Hematocrit (blood only) 41.3 % (42-52); Immature Granulocytes # (auto) 0.07 K/uL (0.00-0.02); Immature Granulocytes % (auto) 0.4 %; Lymphocytes # (auto) 0.57 K/uL (1.2-3.4); Lymphocytes % (auto) 3.2 %; Mean Corpuscular Hemoglobin 31.3 pg (25-34); Mean Corpuscular Hgb Conc 33.9 g/dL (32-36); Mean Corpuscular Volume 92.2 fL (80-100); Monocytes # (auto) 0.62 K/uL (0.11-0.59); Monocytes % (auto) 3.4 %; Neutrophils # (auto) 16.72 K/uL (1.4-6.5); Neutrophils % (auto) 92.7 %; Platelet Count 198 K/uL (130-400); RDW Coefficient of Variation 14.9 % (11.5-14.5); RDW Standard Deviation 50.7 fL (36.4-46.3); Red Blood Count 4.48 M/uL (4.7-6.1); White Blood Count 18.04 K/uL (4.8-10.8)
[2019-08-20] MEDS ORDERED: ALBUMIN 25% 50 ML IV ONE ×2 (03:45→04:14)
--- NOTE | 2019-08-20 03:47 | Hospitalist Progress Note ---
Date of Service August 20, 2019 Subjective Made aware by RN of patient complaints of chills, generalized discomfort and chest congestion. Partial relief with neb treatment. Heart rate 120s, sinus tachycardia on the monitor, patient febrile. Junky yellow sputum as per RN. No chest pain, abdominal pain, diarrhea/dysuria complaints. AP Fever spike Possible sepsis ARF, lactic acid elevation, possible overdiuresis Cultures Continue current antibiotic Rx for lower extremity cellulitis, complicated bron chitis Baseline UA, monitor creatinine/lactic acid response to IV albumin May need to broaden antibiotic coverage if with recurrent fever, abn UA, blood cultures results. Hold diuretic, LORENA inhibitor, spironolactone, NSAID for now until creatinine at baseline Will relay to AM provider. Results & Data Vital Signs (Past 12 Hours) Vital Signs Temp Pulse Pulse Resp BP Pulse Ox 08/20/19 03:15 38.4 C H 110 H 22 92 08/20/19 02:56 116 H 22 92 08/20/19 02:09 38.2 C H 122 H 22 118/60 90 08/20/19 00:20 94 H 22 95 08/20/19 00:06 36.6 C 80 16 103/72 90 08/20/19 00:00 110 H 08/19/19 22:30 75 08/19/19 20:00 69 08/19/19 19:33 36.7 C 69 20 166/76 H 95
[2019-08-20] MEDS ORDERED: XOPENEX/ATROVENT 1.25mg/0.5MG NEB COMBO NEB PRN (03:50)
[2019-08-20 03:57] LABS: BUN Creatinine Ratio 20.5 (10-20); Calcium 8.8 mg/dl (8.5-10.1); Creatinine Clr Calc Pharmacy 101.7 ml/min; Est GFR (African American) 63.2; Est GFR (Non-African American) 54.5; Magnesium 1.5 mg/dl (1.8-2.4); Potassium 3.9 mmol/L (3.5-5.1)
[2019-08-20] MEDS ORDERED: SODIUM CHLORIDE 0.9% 500 ML IV ONE (03:59)
[2019-08-20] MEDS ORDERED: LEVALBUTEROL 1.25MG/0.5ML NEB INH PRN (04:00)
[2019-08-20] MEDS ORDERED: IPRATROPIUM BROMIDE NEB SOLN 0.02% 2.5 ML VIAL INH PRN (04:00)
[2019-08-20] MEDS ORDERED: methylPREDNISolone 20 MG in SYRINGE 0 ML IV ONE (04:00)
--- NOTE | 2019-08-20 06:49 | XRay Report ---
XR chest 1V portable CLINICAL HISTORY: Shortness of breath. COMPARISON STUDY: Chest radiograph August 16, 2019. FINDINGS: Lung volumes are normal. Lungs are clear. There is no pneumothorax or pleural effusion. Car diac size is normal. Mediastinal contours are normal. There is no evidence for pulmonary edema. IMPRESSION: No acute cardiopulmonary findings. Electronically signed by: Melchor Reyes M.D. 08/20/2019 6:48 AM
[2019-08-20] MEDS: CIPROFLOXACIN HCL 0.3% OP SOLN 2.5 ML BTL OPB SCH ×5 (08:36→22:17)
[2019-08-20] MEDS: FLUTICASONE PROPIONATE NA SPR 16 GM BTL SCH (08:36)
[2019-08-20] MEDS: IPRATROPIUM BROMIDE/ALBUTEROL respimat INH INH SCH ×4 (08:36→22:17)
[2019-08-20] MEDS: DOXYCYCLINE HYCLATE 100 MG CAP PO SCH (08:37)
[2019-08-20] MEDS: POTASSIUM CHLORIDE 20 MEQ TABCR PO SCH (08:37)
[2019-08-20] MEDS: ASPIRIN 81 MG ECTAB PO SCH (08:37)
[2019-08-20] MEDS: CETIRIZINE HCL 10 MG TABLET PO SCH (08:37)
[2019-08-20] MEDS: guaiFENesin 600 MG TABCR PO SCH ×2 (08:37→22:16)
[2019-08-20] MEDS: CHOLECALCIFEROL 1,000 UNITS TAB PO SCH (08:37)
[2019-08-20] MEDS: CEFDINIR 300 MG CAP PO SCH (08:37)
[2019-08-20] MEDS: LACTOBACILLUS ACIDOPHILUS (FLORANEX) TAB PO SCH ×3 (08:38→16:33)
[2019-08-20 09:02] LABS: BUN Creatinine Ratio 17.1 (10-20); Calcium 8.8 mg/dl (8.5-10.1); Creatinine Clr Calc Pharmacy 73.3 ml/min; Est GFR (African American) 42.4; Est GFR (Non-African American) 36.6; Magnesium 1.8 mg/dl (1.8-2.4); Potassium 4.3 mmol/L (3.5-5.1)
--- NOTE | 2019-08-20 10:28 | Hospitalist Progress Note ---
Date of Service August 20, 2019 Assessment & Plan (1) Acute on chronic diastolic CHF (congestive heart failure): Diuresed adequately, creatinine increased to 2.03, hold Lasix and spironolactone today Monitor renal function closely (2) Bilateral lower leg cellulitis: Positive fever No other focus of infection identified at this time Blood culture: Pending Culture: Pending ID consulted IV daptomycin and ertapenem started Doxycycline and cefdinir discontinued Monitor closely (3) Lymphedema of both lower extremities: as above (4) Bilateral conjunctivitis: improving cipro opth 2 gtt q4hwa x 5 days (5) URI (upper respiratory infection): Continues to improve Continue: duoneb QID, incentive spirometry mucinex Q12hr Now on Dapto and ertapenem Continue Flonase (6) Hypertension: Lisinopril held for acute kidney injury Monitor blood pressure closely (7) Hyperlipidemia: continue statin (8) Pre-diabetes: A1C 6.1 fasting glucose 114 encourage lifestyle modifications given multiple co morbidities (9) Sleep apnea: Bipap at HS (10) COPD (chronic obstructive pulmonary disease): Management of bronchitis as noted above continue advair QID albuterol (11) Tobacco abuse: declines nicotine patch encourage smoking cessation (12) Morbid obesity with BMI of 50.0-59.9, adult: encourage lifestyle modifications (13) Chronic back pain: continue prn percocet monitor (14) DVT prophylaxis: Lovenox Disposition: admit to telemetry Follow up: PCP Dr. Roy upon discharge, along with appropriate wound care follow up Subjective Follow-up for CHF exacerbation Seen resting in bedside chair, sleeping but easily awakened Was having febrile episodes overnight Chest x-ray: No pneumonia, blood cultures pending, urinalysis and urine cultures ordered States he was having chills overnight Today feeling improved, denies shortness of breath, cough and sputum production improving Denies abdominal pain, diarrhea, problems with urination Has tenderness on bilateral lower legs No other symptoms Review of Systems Review of Systems: All systems reviewed & are unremarkable except as noted in HPI & below Physical Exam Physical Exam: General- oriented x 3, not in distress, speaks in sentences with no effort or accessory muscle use Eyes- anicteric Neck- no JVD Lungs- clear sounds, no crackles, no wheezing bilaterally Heart- normal rate, regular rhythm; no murmurs Abdomen- normal bowel sounds, nondistended, soft, nontender Extremities-grade 1-2 bilateral lower leg edema, with associated mild erythema, mild warmth, moderate tenderness Neuro- alert, oriented x 3; no gross focal neurologic deficits Skin- warm & dry Results & Data Vital Signs (Past 12 Hours) Vital Signs Temp Pulse Pulse Resp BP Pulse Ox 08/20/19 07:19 37.1 C 93 H 18 116/59 L 94 08/20/19 06:01 36.9 C 92 H 20 08/20/19 03:15 38.4 C H 110 H 22 92 08/20/19 02:56 116 H 22 92 08/20/19 02:09 38.2 C H 122 H 22 118/60 90 08/20/19 00:20 94 H 22 95 08/20/19 00:06 36.6 C 80 16 103/72 90 08/20/19 00:00 110 H 08/19/19 22:30 75
[2019-08-20] MEDS ORDERED: PIPERACILL/TAZOBAC CONSULT ACTIVE PRN (11:00)
--- NOTE | 2019-08-20 11:03 | Cardiology Progress Note ---
Date of Service August 20, 2019 Assessment & Plan (1) Acute on chronic diastolic CHF (congestive heart failure): (2) Sepsis: (3) Cellulitis: (4) Hypomagnesemia: (5) Acute renal insufficiency: (6) Morbid obesity with BMI of 50.0-59.9, adult: (7) Obesity hypoventilation syndrome: (8) RBBB: Hold diuretic therapy and aldactone today. Agree with initiation of IV antibiotics. Blood and urine cultures obtained. Continue positive pressure ventilation at night. Repeat basic metabolic panel in a.m. Transition to oral torsemide when renal function improves. Subjective Patient seen and examined at the bedside. Denies chest pain or unusual shortness of breath. Lower extremity edema improved. Elevated temperature noted overnight with increased white blood cell count today. Patient reports mild discomfort of his lower extremities. No cough, dysuria, or abdominal pain. Review of Systems Review of Systems: All systems reviewed & are unremarkable except as noted in HPI & below Physical Exam Physical Exam: General: NAD, AAO x3, well nourished. Morbid obesity. HEENT: Normocephalic. Atraumatic. Conjunctiva pink, no scleral icterus. Neck: No carotid bruits, the carotid upstrokes are brisk. No JVD. No HJR Heart: Regular normal S-1 and S-2 no S-3 or S-4 gallop. No murmurs or rub appreciated. PMI is not displaced. No RV heave. Lungs: Clear bilateral without rales , rhonchi, or wheeze. Abdomen: Normal bowel sounds. Soft. Nontender. No masses or organomega ly. No abdominal bruits. Extremities: 2+ bilateral lower extremity pitting edema to the knees, +stasis changes. + warm to touch, No ulceration. Pulses: radial=2/4. Neuro: Cranial nerves grossly intact. No focal motor deficit. Results & Data Vital Signs (Past 12 Hours) Vital Signs Temp Pulse Pulse Resp BP Pulse Ox 08/20/19 07:19 37.1 C 93 H 18 116/59 L 94 08/20/19 06:01 36.9 C 92 H 20 08/20/19 03:15 38.4 C H 110 H 22 92 08/20/19 02:56 116 H 22 92 08/20/19 02:09 38.2 C H 122 H 22 118/60 90 08/20/19 00:20 94 H 22 95 08/20/19 00:06 36.6 C 80 16 103/72 90 08/20/19 00:00 110 H Laboratory Results Laboratory Results - last 24 hr 08/20/19 08/20/19 08/20/19 03:11 03:11 03:11 WBC 18.04 H RBC 4.48 L Hgb 14.0 Hct 41.3 L MCV 92.2 MCH 31.3 MCHC 33.9 RDW Std Deviation 50.7 H RDW Coeff of [place] 14.9 H Plt Count 198 MPV 11.0 H Immature Gran % (Auto) 0.4 Neut % (Auto) 92.7 Lymph % (Auto) 3.2 [place] % (Auto) 3.4 Eos % (Auto) 0.2 Baso % (Auto) 0.1 Immature Gran # (Auto) 0.07 H Neut # (Auto) 16.72 H Lymph # (Auto) 0.57 L [place] # (Auto) 0.62 H Eos # (Auto) 0.04 Baso # (Auto) 0.02 APTT 25.1 PTT Ratio 0.9 Sodium 138 Potassium 3.9 Chloride 101 Carbon Dioxide 29 Anion Gap 8.0 BUN 30 H Creatinine 1.46 H D Est Cr Clr Drug Dosing 101.7 Est GFR ( Amer) 63.2 Est GFR (Non-Af Amer) 54.5 BUN/Creatinine Ratio 20.5 H Glucose 151 H Lactate Calcium 8.8 Magnesium 1.5 L 08/20/19 08/20/19 08/20/19 03:11 08:14 08:25 WBC RBC Hgb Hct MCV MCH MCHC RDW Std Deviation RDW Coeff of [place] Plt Count MPV Immature Gran % (Auto) Neut % (Auto) Lymph % (Auto) [place] % (Auto) Eos % (Auto) Baso % (Auto) Immature Gran # (Auto) Neut # (Auto) Lymph # (Auto) [place] # (Auto) Eos # (Auto) Baso # (Auto) APTT PTT Ratio Sodium 135 L Potassium 4.3 Chloride 101 Carbon Dioxide 26 Anion Gap 8.0 BUN 35 H Creatinine 2.03 H D Est Cr Clr Drug Dosing 73.3 Est GFR ( Amer) 42.4 Est GFR (Non-Af Amer) 36.6 BUN/Creatinine Ratio 17.1 Glucose 206 H Lactate 2.4 H* 2.7 H* Calcium 8.8 Magnesium 1.8 (1) Cellulitis Laterality: unspecified laterality Site of cellulitis: extremity Site of cellulitis of extremity: lower extremity Qualified Code(s): L03.119 - Cellulit is of unspecified part of limb (2) Sepsis Sepsis acute organ dysfunction status: unspecified Sepsis type: sepsis due to unspecified organism Qualified Code(s): A41.9 - Sepsis, unspecified organism
--- NOTE | 2019-08-20 11:09 | Infectious Disease Consult ---
Date of Consultation August 20, 2019 Supervising Physician Co-Signing Physician Notes Unable to create problem list in [place] due to "other user in chart" would suggest IV dapto and ertapenem pending blood culture results. will repeat ua, no diarrhea noted, if develops consider c diff testing as he was on abx [employer]. will hold po abx for now. History of Present Illness Attending Physician: Robert Waldrop MD pt admitted for increased sob and 30 lb weight gain in 1 week. cardio following, being treated for CHF. afebrile since admission (08/16) until last pm, temp 38.4, states he feels cold now. UA negative on admission, blood cultures obtained overnight with fever, pending. CXR negative, lactate this am 2.7. oob to chair on my exam, states he is having pain in right lateral ankle. was treated at another hospital for cellulitis recently and was d/c on omnicef and doxy, remains on this. per primary service note today - cellulitis is improving. wbc 18 today, was 7 previously. creat also increased to 2. undergoing diuresis. no cp, sob, cough, no n/v/d/abd pain, no gu symptoms. Allergies Allergy/AdvReac Type Severity Reaction Status Date / Time vancomycin Allergy Intermediate Hives Verified 08/16/19 14:08 hydrocodone [From Vicodin] Allergy Mild Rash Verified 08/16/19 14:08 Home Medications Home Medications Medication Instructions Recorded Confirmed Type Spiriva with HandiHaler 1 cap INHALATION DAILY PRN 04/03/19 08/16/19 History acetaminophen 500 mg PO Q6H PRN 04/03/19 08/16/19 History albuterol sulfate [Ventolin HFA] 2 puff INHALATION Q4 PRN 04/03/19 08/16/19 History aspirin 81 mg PO DAILY 04/03/19 08/16/19 History atorvastatin 40 mg PO HS 04/03/19 08/16/19 History fluticasone propion-salmeterol 1 inh INHALATION BID PRN 04/03/19 08/16/19 History [Advair Diskus] fluticasone propionate [Flonase 2 spray INTRANASAL HS PRN 04/03/19 08/16/19 History Allergy Relief] lisinopril 10 mg PO HS 04/03/19 08/16/19 History meloxicam 15 mg PO HS 04/03/19 08/16/19 History oxycodone-acetaminophen 1 tab PO Q6H PRN 04/03/19 08/16/19 History pantoprazole 40 mg PO HS 04/03/19 08/16/19 History potassium chloride 20 meq PO HS 04/03/19 08/16/19 History sennosides [senna] 2 tab PO DAILY PRN 04/03/19 08/16/19 History torsemide 20 mg PO BID 04/03/19 08/16/19 History Lactobacillus acidophilus 1 mmu cells PO TID 08/16/19 08/16/19 History cefdinir 300 mg PO BID 08/16/19 08/16/19 History cholecalciferol (vitamin D3) 2,000 unit PO DAILY 08/16/19 08/16/19 History cyclobenzaprine 5 mg PO DAILY 08/16/19 08/16/19 History doxycycline hyclate 100 mg PO Q12H 08/16/19 08/16/19 History white petrolatum [Petroleum Jelly] 1 applic TOPICAL UD 08/16/19 08/16/19 History Patient History Medical History Asthma Sleep apnea bipap with 2L oxygen Myocardial Infarction ? 10 yrs ago Hyperlipidemia Hypertension Thyroid nodule just monitoring Chronic back pain Bulging lumbar disc Bulging of cervical intervertebral disc Gout Osteoarthritis GERD with apnea COPD (chronic obstructive pulmonary disease) Seizure Possible seizure in 2016 evaluation normal per patient , no problems since Surgical History History of cardiac cath ? 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: No Beliefs That Will Affect Care: None Current Living Situation: Spouse and Family Current Living Situation Comment: Lives with and 2 kids Other Information That Helps Us Care for You: No Feels Safe at Home: Yes Safety Concerns: Feels Safe At This Time Smoking Status: Current every day smoker Tobacco Type: cigarettes ; Years Smoked: 27 ; Cigarettes Per Day: 10-20 ; Second Hand Exposure: Yes ( smokes/father smoked) ; Hx Alcohol Use: No Hx Substance Use: No Review of Systems Review of Systems: All systems reviewed & are unremarkable except as noted in HPI & below Physical Exam Constitutional: WD/WN, vitals as above Eyes: PERRL, conjunctivae normal, anicteric sclerae ENMT: external ear and nose normal, oropharynx normal Neck: normal visual inspection Respiratory: normal respiratory effort, lungs clear to auscultation Cardiovascular: RRR, no murmur, no edema Gastrointestinal (Abdomen): normal bowel sounds, soft, nontender, no hepatosplenomegaly Musculoskeletal: no cyanosis or clubbing, extremities motor strength 5/5 Skin: no rashes, warm and dry rle edema noted, wounds lateral and medial ankle, no drainage, no warmth min tenderness superficial Psychiatric: A+Ox3, euthymic affect Results & Data Vital Signs (Past 12 Hours) Vital Signs Temp Pulse Pulse Resp BP Pulse Ox 08/20/19 07:19 37.1 C 93 H 18 116/59 L 94 08/20/19 06:01 36.9 C 92 H 20 08/20/19 03:15 38.4 C H 110 H 22 92 08/20/19 02:56 116 H 22 92 08/20/19 02:09 38.2 C H 122 H 22 118/60 90 08/20/19 00:20 94 H 22 95 08/20/19 00:06 36.6 C 80 16 103/72 90 08/20/19 00:00 110 H PG Care Time/CCT Total # of Minutes Spent Total Time Spent with Patient: Total time spent is greater than 50% in coordination of care (as documented) at patient's floor/unit and/or counseling patient:
[2019-08-20 11:26] LABS: Estimated Average Glucose 137 mg/dl; Hemoglobin A1C 6.4 % (4.5-5.6)
[2019-08-20] MEDS: DAPTOmycin 475 MG in SYRINGE 0 ML IV SCH (11:53)
[2019-08-20] MEDS: ERTAPENEM SODIUM 500 MG in SODIUM CHLORIDE 0.9% 50 ML IV SCH (11:53)
[2019-08-20] MEDS: ATORVASTATIN 40 MG TAB PO SCH (22:16)
[2019-08-20] MEDS: PANTOprazole 40 MG TAB PO SCH (22:16)
[2019-08-20] MEDS: ENOXAPARIN INJ 40 MG/0.4 ML SYR SQ SCH (22:16)
[2019-08-21 00:31] LABS: Appearance Urine Clear (Clear); Bilirubin Urine Negative (Negative); Blood Urine Negative (Negative); Color Urine Yellow; Glucose Urine UA Negative (Negative); Ketones Urine Trace (Negative); Leukocyte Esterase Urine Negative (Negative); Nitrite Urine Negative (Negative); Protein Urine Negative (Negative); Urobilinogen Urine Negative (Negative); pH Urine 5.5 (4.5-7.5)
[2019-08-21] MEDS: CIPROFLOXACIN HCL 0.3% OP SOLN 2.5 ML BTL OPB SCH ×3 (08:09→16:20)
[2019-08-21] MEDS: LACTOBACILLUS ACIDOPHILUS (FLORANEX) TAB PO SCH ×3 (08:10→16:21)
[2019-08-21] MEDS: IPRATROPIUM BROMIDE/ALBUTEROL respimat INH INH SCH ×4 (08:11→21:01)
[2019-08-21] MEDS: FLUTICASONE PROPIONATE NA SPR 16 GM BTL SCH (08:12)
[2019-08-21] MEDS: guaiFENesin 600 MG TABCR PO SCH ×2 (08:13→21:00)
[2019-08-21] MEDS: CHOLECALCIFEROL 1,000 UNITS TAB PO SCH (08:13)
[2019-08-21] MEDS: ASPIRIN 81 MG ECTAB PO SCH (08:14)
[2019-08-21] MEDS: CETIRIZINE HCL 10 MG TABLET PO SCH (08:14)
[2019-08-21 08:33] LABS: Basophils # (auto) 0.01 K/uL (0-0.2); Basophils % (auto) 0.1 %; Eosinophils # (auto) 0.05 K/uL (0-0.5); Eosinophils % (auto) 0.3 %; Hemoglobin 12.9 g/dL (14.0-18.0); Immature Granulocytes # (auto) 0.05 K/uL (0.00-0.02); Immature Granulocytes % (auto) 0.3 %; Lymphocytes # (auto) 1.09 K/uL (1.2-3.4); Lymphocytes % (auto) 6.2 %; Mean Corpuscular Hemoglobin 31.6 pg (25-34); Mean Corpuscular Hgb Conc 33.9 g/dL (32-36); Mean Corpuscular Volume 93.1 fL (80-100); Mean Platelet Volume 10.8 fL (7.4-10.4); Monocytes # (auto) 0.54 K/uL (0.11-0.59); Monocytes % (auto) 3.1 %; Neutrophils # (auto) 15.89 K/uL (1.4-6.5); Platelet Count 170 K/uL (130-400); RDW Coefficient of Variation 15.5 % (11.5-14.5); RDW Standard Deviation 52.9 fL (36.4-46.3); Red Blood Count 4.08 M/uL (4.7-6.1); White Blood Count 17.63 K/uL (4.8-10.8)
[2019-08-21 09:11] LABS: BUN Creatinine Ratio 29.2 (10-20); Calcium 9.4 mg/dl (8.5-10.1); Creatinine Clr Calc Pharmacy 111.5 ml/min; Est GFR (African American) 70.7; Potassium 3.9 mmol/L (3.5-5.1)
--- NOTE | 2019-08-21 11:20 | Cardiology Progress Note ---
Date of Service August 21, 2019 Assessment & Plan (1) Acute on chronic diastolic CHF (congestive heart failure): (2) Sepsis: (3) Cellulitis: (4) Hypomagnesemia: (5) Acute renal insufficiency: (6) Morbid obesity with BMI of 50.0-59.9, adult: (7) Obesity hypoventilation syndrome: (8) RBBB: Hold diuretic therapy, aldactone, and LORENA inhibitor today. Continue IV antibiotics per infectious disease and internal medicine. Blood cultures pending. Continue positive pressure ventilation at night. Repeat basic metabolic panel in a.m. Transition to oral torsemide pending review of AM labs. Subjective Patient seen and examined at the bedside. No recurrent fevers overnight. Feeling better today. Requesting discharge if possible. Diuretics, Aldactone, and LORENA inhibitor on hold. Creatinine improved today. Tolerating antibiotics. Offers no other concerns/complaints at this time. Review of Systems Review of Systems: All systems reviewed & are unremarkable except as noted in HPI & below Physical Exam Physical Exam: General: NAD, AAO x3, well nourished. Morbid obesity. HEENT: Normocephalic. Atraumatic. Conjunctiva pink, no scleral icterus. Neck: No carotid bruits, the carotid upstrokes are brisk. No JVD. No HJR Heart: Regular normal S-1 and S-2 no S-3 or S-4 gallop. No murmurs or rub appreciated. PMI is not displaced. No RV heave. Lungs: Clear bilateral without rales , rhonchi, or wheeze. Abdomen: Normal bowel sounds. Soft. Nontender. No masses or or ganomegaly. No abdominal bruits. Extremities: 2+ bilateral lower extremity pitting edema to the knees, +stasis changes. + warm to touch, No ulceration. Pulses: radial=2/4. Neuro: Cranial nerves grossly intact. No focal motor deficit. Results & Data Vital Signs (Past 12 Hours) Vital Signs Temp Pulse Pulse Resp BP BP Pulse Ox 08/21/19 07:47 36.8 C 82 20 123/74 94 08/21/19 03:23 36.6 C 72 18 116/72 95 08/21/19 00:00 87 08/20/19 23:53 36.5 C 84 15 112/30 L 100/48 L 90 (1) Cellulitis Laterality: unspecified laterality Site of cellulitis: extremity Site of cellulitis of extremity: lower extremity Qualified Code(s): L03.119 - Cell ulitis of unspecified part of limb (2) Sepsis Sepsis acute organ dysfunction status: unspecified Sepsis type: sepsis due to unspecified organism Qualified Code(s): A41.9 - Sepsis, unspecified organism
[2019-08-21] MEDS: DAPTOmycin 475 MG in SYRINGE 0 ML IV SCH (11:33)
[2019-08-21] MEDS: ERTAPENEM SODIUM 500 MG in SODIUM CHLORIDE 0.9% 50 ML IV SCH (11:35)
[2019-08-21] MEDS ORDERED: ERTAPENEM SODIUM 500 MG in SODIUM CHLORIDE 0.9% 50 ML IV ONE (12:45)
--- NOTE | 2019-08-21 14:14 | Infectious Disease Progress Nt ---
Date of Service August 21, 2019 Assessment & Plan (1) Lymphedema of both lower extremities: unclear cause of fever, isolated, on emperic IV abx. If remains afebrile and cultures remain negative, can transition back to previous course of po abx for treatment of previously diagnosed cellulitis. Subjective afebrile overnight, transitioned to IV abx yesterday awaiting culture results, negative at 24 hours. no additional fever. wbc improved today. creat improved. cardio managing diuretics. no overnight events. Results & Data Vital Signs (Past 12 Hours) Vital Signs Temp Pulse Resp BP BP Pulse Ox 08/21/19 12:02 36.6 C 79 20 105/66 93 08/21/19 07:47 36.8 C 82 20 123/74 94 08/21/19 03:23 36.6 C 72 18 116/72 95 Laboratory Results Microbiology 08/20/19 03:18 Blood Aerobic Blood Culture - Preliminary No growth in Aerobic bottle after 24 hours. 08/20/19 03:18 Blood Anaerobic Blood Culture - Preliminary No growth in Anaerobic bottle after 24 hours. 08/20/19 03:11 Blood Aerobic Blood Culture - Preliminary No growth in Aerobic bottle after 24 hours. 08/20/19 03:11 Blood Anaerobic Blood Culture - Preliminary No growth in Anaerobic bottle after 24 hours. PG Care Time/CCT Total # of Minutes Spent Total Time Spent with Patient: Total time spent is greater than 50% in coordination of care (as documented) at patient's floor/unit and/or counseling patient:
--- NOTE | 2019-08-21 16:55 | Hospitalist Progress Note ---
Date of Service August 21, 2019 Assessment & Plan (1) Acute on chronic diastolic CHF (congestive heart failure): Diuresed well, creatinine increased to 2.03, holding Lasix and spironolactone Creatinine improved to 1.33 Plan to resume torsemide tomorrow if creatinine remains stable Monitor renal function closely (2) Bilateral lower leg cellulitis: Afebrile since last night No other focus of infection identified at this time Blood culture: Pending Urine culture: Pending ID consulted IV daptomycin and ertapenem day #2 Doxycycline and cefdinir discontinued Monitor closely Plan to resume usual doxycycline and cefdinir p.o. if remains afebrile (3) Lymphedema of both lower extremities: as above (4) Bilateral conjunctivitis: improving cipro opth 2 gtt q4hwa x 5 days (5) URI (upper respiratory infection): Continues to improve Continue: duoneb QID, incentive spirometry mucinex Q12hr Now on Dapto and ertapenem Continue Flonase (6) Hypertension: Lisinopril held for acute kidney injury Monitor blood pressure closely (7) Hyperlipidemia: continue statin (8) Pre-diabetes: A1c 6.4 encourage lifestyle modifications given multiple co morbidities (9) Sleep apnea: Bipap at HS (10) COPD (chronic obstructive pulmonary disease): Management of bronchitis as noted above continue advair QID albuterol (11) Tobacco abuse: declines nicotine patch encourage smoking cessation (12) Morbid obesity with BMI of 50.0-59.9, adult: encourage lifestyle modifications (13) Chronic back pain: continue prn percocet monitor (14) DVT prophylaxis: Lovenox Disposition: admit to telemetry Follow up: PCP Dr. Roy upon discharge, along with appropriate wound care follow up Subjective For acute on chronic diastolic CHF exacerbation Seen resting bedside chair, comfortable Denies shortness of breath, chest pain Minimal leg discomfort No problems with voiding No other symptoms Review of Systems Review of Systems: All systems reviewed & are unremarkable except as noted in HPI & below Physical Exam Physical Exam: General- oriented x 3, not in distress, speaks in sentences with no effort or accessory muscle use Eyes- anicteric Neck- no JVD Lungs- clear breath sounds bilaterally, no rales/wheezes Heart- normal rate, regular rhythm; no murmurs Abdomen- normal bowel sounds, nondistended, soft, nontender Extremities-positive grade 1-2 bilateral lower extremity edema, less warmth, erythema, tenderness Neuro- alert, oriented x 3; no gross focal neurologic deficits Skin- warm & dry Results & Data Vital Signs (Past 12 Hours) Vital Signs Temp Pulse Pulse Resp BP Pulse Ox 08/21/19 15:33 71 08/21/19 15:21 36.9 C 75 20 125/78 92 08/21/19 12:02 36.6 C 79 20 105/66 93 08/21/19 07:47 36.8 C 82 20 123/74 94 Laboratory Results Laboratory Results - last 24 hr 08/21/19 08/21/19 08/21/19 00:00 08:20 08:20 WBC 17.63 H RBC 4.08 L Hgb 12.9 L Hct 38.0 L MCV 93.1 MCH 31.6 MCHC 33.9 RDW Std Deviation 52.9 H RDW Coeff of [place] 15.5 H Plt Count 170 MPV 10.8 H Immature Gran % (Auto) 0.3 Neut % (Auto) 90.0 Lymph % (Auto) 6.2 [place] % (Auto) 3.1 Eos % (Auto) 0.3 Baso % (Auto) 0.1 Immature Gran # (Auto) 0.05 H Neut # (Auto) 15.89 H Lymph # (Auto) 1.09 L [place] # (Auto) 0.54 Eos # (Auto) 0.05 Baso # (Auto) 0.01 Sodium 135 L Potassium 3.9 Chloride 101 Carbon Dioxide 28 Anion Gap 6.0 BUN 39 H Creatinine 1.33 D Est Cr Clr Drug Dosing 111.5 Est GFR ( Amer) 70.7 Est GFR (Non-Af Amer) 61.0 BUN/Creatinine Ratio 29.2 H Glucose 143 H Calcium 9.4 Urine Color Yellow Urine Appearance Clear Urine pH 5.5 Ur Specific [place] 1.020 Urine Protein Negative Urine Glucose (UA) Negative Urine Ketones Trace H Urine Blood Negative Urine Nitrite Negative Urine Bilirubin Negative Urine Urobilinogen Negative Ur Leukocyte Esterase Negative
[2019-08-21] MEDS: ENOXAPARIN INJ 40 MG/0.4 ML SYR SQ SCH (21:01)
[2019-08-21] MEDS: ATORVASTATIN 40 MG TAB PO SCH (21:01)
[2019-08-21] MEDS: PANTOprazole 40 MG TAB PO SCH (21:03)
[2019-08-22 06:05] LABS: Basophils # (auto) 0.02 K/uL (0-0.2); Basophils % (auto) 0.2 %; Eosinophils # (auto) 0.12 K/uL (0-0.5); Eosinophils % (auto) 1.4 %; Hematocrit (blood only) 36.6 % (42-52); Hemoglobin 11.9 g/dL (14.0-18.0); Immature Granulocytes # (auto) 0.01 K/uL (0.00-0.02); Immature Granulocytes % (auto) 0.1 %; Lymphocytes # (auto) 1.33 K/uL (1.2-3.4); Mean Corpuscular Hemoglobin 30.5 pg (25-34); Mean Corpuscular Hgb Conc 32.5 g/dL (32-36); Mean Corpuscular Volume 93.8 fL (80-100); Mean Platelet Volume 10.3 fL (7.4-10.4); Neutrophils # (auto) 6.32 K/uL (1.4-6.5); Neutrophils % (auto) 76.3 %; Platelet Count 167 K/uL (130-400); RDW Coefficient of Variation 15.3 % (11.5-14.5); RDW Standard Deviation 52.5 fL (36.4-46.3)
[2019-08-22 06:47] LABS: BUN Creatinine Ratio 24.4 (10-20); Calcium 8.9 mg/dl (8.5-10.1); Est GFR (Non-African American) 75.9; Potassium 4.4 mmol/L (3.5-5.1)
[2019-08-22] MEDS: IPRATROPIUM BROMIDE/ALBUTEROL respimat INH INH SCH (07:33)
[2019-08-22] MEDS: guaiFENesin 600 MG TABCR PO SCH (07:33)
[2019-08-22] MEDS: CETIRIZINE HCL 10 MG TABLET PO SCH (07:33)
[2019-08-22] MEDS: FLUTICASONE PROPIONATE NA SPR 16 GM BTL SCH (07:34)
[2019-08-22] MEDS: CHOLECALCIFEROL 1,000 UNITS TAB PO SCH (07:34)
[2019-08-22] MEDS: ASPIRIN 81 MG ECTAB PO SCH (07:34)
[2019-08-22] MEDS: LACTOBACILLUS ACIDOPHILUS (FLORANEX) TAB PO SCH (07:34)
[2019-08-22] MEDS ORDERED: TORSEMIDE 10 MG TAB PO SCH (09:45)
[2019-08-22] MEDS ORDERED: ERTAPENEM SODIUM 1,000 MG in SODIUM CHLORIDE 0.9% 50 ML IV SCH (11:00)
--- NOTE | 2019-08-22 11:21 | Hospitalist Progress Note ---
Date of Service August 22, 2019 Assessment & Plan (1) Acute on chronic diastolic CHF (congestive heart failure): Diuresed well, creatinine increased to 2.03, holding Lasix and spironolactone Creatinine improved to 1.11 Resume Torsemide 20mg po BID per Product Support Rep ff up with Cardiology clinic in 2 weeks (2) Bilateral lower leg cellulitis: Afebrile x 2 days No other focus of infection identified at this time Blood culture:Negative ID consulted IV daptomycin and ertapenem given x 2 days resume usual Doxycycline and cefdinir per ID= x 4 more days to complete 14 days antibiotic course ff up with [facility] next week (3) Lymphedema of both lower extremities: as above (4) Bilateral conjunctivitis: resolved cipro opth 2 gtt q4hwa x 5 days (5) URI (upper respiratory infection): significantly improved given: duoneb QID, incentive spirometry mucinex Q12hr Flonase antibiotics as noted above -- counselled to use Advair consistently PRN Albulterol Zyrtec and Flonase x 1 week for possible allergic rhinitis component (6) Hypertension: Lisinopril held for acute kidney injury blood pressure stable off Lisinopril monitor as outpatient (7) Hyperlipidemia: continue statin (8) Pre-diabetes: A1c 6.4 encourage lifestyle modifications given multiple co morbidities (9) Sleep apnea: Bipap at HS (10) COPD (chronic obstructive pulmonary disease): Management of bronchitis as noted above continue advair PRN Levalbuterol (11) Tobacco abuse: declines nicotine patch encourage smoking cessation (12) Morbid obesity with BMI of 50.0-59.9, adult: encourage lifestyle modifications (13) Chronic back pain: stable continue prn percocet monitor (14) DVT prophylaxis: Lovenox D/C home with home health services ff up with PCP Dr. Roy on Tue08/24/2019 ff up with Product Support Rep Dr. Alston in 2 weeks ff up with [facility] next week Subjective ff up for CHF exacerbation seen resting in chair, comfortable, in good spirits states he feel better overall denies dyspnea, chest pain, dizziness, palpitations ambulating with no problems no leg pain, fever/chills, less cough and sputum no other symptoms states he is ready and would like to be discharged today Review of Systems Review of Systems: All systems reviewed & are unremarkable except as noted in HPI & below Physical Exam Physical Exam: General- oriented x 3, not in distress, speaks in sentences with no effort or accessory muscle use Eyes- anicteric Neck- no JVD Lungs- clear breath sounds bilaterally, no wheezing, no crackles Heart- normal rate, regular rhythm; no murmurs Abdomen- normal bowel sounds, nondistended, soft, nontender Extremities- mild lower leg edema, no warmth, mild erythema, no tenderness Neuro- alert, oriented x 3; no gross focal neurologic deficits Skin- warm & dry Results & Data Vital Signs (Past 12 Hours) Vital Signs Temp Pulse Pulse Resp BP Pulse Ox 08/22/19 11:05 36.7 C 61 20 138/79 95 08/22/19 08:00 68 08/22/19 07:00 36.5 C 65 22 119/59 L 94 08/22/19 02:52 36.6 C 60 20 115/62 91 08/22/19 00:39 74 08/21/19 23:50 36.6 C 68 20 109/56 L 92
--- NOTE | 2019-08-22 11:47 | Discharge Summary ---
Date of Service August 22, 2019 Admission HPI Per Admitting Provider This is a 54-year-old male who has significant past medical history of HTN, HLD, Pre Diabetes, pickwickian syndrome, history of right heart failure/diastolic CHF, SIDRA on BiPAP at , PVD, chronic venous insufficiency, history of DVT, GERD, depression, tobacco abuse who presents to [facility] ED at the referral of cardiology clinic secondary to shortness of breath and 30 pound weight gain in 1 week. Patient was seen in cardiology clinic today by Dr. Alston. Patient with complaints of increased shortness of breath at rest and with exertion. He had a notable 30 pound weight gain. Was referred to [facility] ED. Of significance patient recently confined at [facility] from 08/08/19-08/10/19 due to lower extremity cellulitis. He was treated with IV antibiotics and discharged home on doxycycline and Cefnidir for 10 days. He states he has only been taking these once a day. He denies any fever, chills, sweats, lightheaded, dizziness, syncope, nausea, vomiting, diarrhea. He notes shortness of breath at rest, LUNA, left eye drainage, right-sided chest discomfort with coughing "underneath my ribs when I cough," decreased urination. Patient admits to being noncompliant with low-sodium diet and does not manage fluid intake. He does not weigh himself on a daily basis and is unsure what his dry weight is, "it fluctuates all the time." He chronically has bilateral lower extremity swelling and admits this fluctuates frequently as well, unsure if currently worse. Denies PND and orthopnea. Admission Exam Per Admitting Provider Constitutional: WD/WN, vitals as above, unkempt, M, morbidly obese,NAD, sitting up in bed, pleasant, conversing easily Head: Normocephalic, Atraumatic Eyes: PERRL, conjunctivae injected L with purulent discharge at medial canthus b/l, no photophobia, mild R eye conjunctival injection, limbus spared, anicteric sclerae ENMT: external ear and nose normal, oropharynx normal Neck: trachea midline, no thyromegaly normal visual inspection Respiratory: normal respiratory effort, lungs clear to auscultation, +expiratory wheeze/rhonchi noted ROMEO, no rales, rhonchi. Normal insp/exp effort, no accessory muscle use Cardiovascular: RRR, no murmur, Significant lower ext lymphedema with venous stasis change, current compression dressing in place, +1 pedal pulses b/l Vessels: no JVD or carotid bruit Chest: normal inspection of chest , pain to palpation of R lower anterior rib cage Abdomen: obese abdomen, normal bowel sounds, firm, nontender, no hepatosplenome mar Musculoskeletal: no cyanosis or clubbing, Skin: upper anterior/posterior thorax with papular erythematous rash noted with excoriation, warm and dry normal turgor Neurologic: PERRL, EOMI, accommodation nl, no face palsy, no dysarthria CN's II-XI intact bilaterally and moves all extremities Psychiatric: A+Ox3, euthymic affect Lymphatic: no cervical or axillary lymphadenopathy : deferred Principal Diagnosis ACUTE ON CHRONIC DIASTOLIC CONGESTIVE HEART FAILURE EXACERBATION Discharge Exam General- oriented x 3, not in distress, speaks in sentences with no effort or accessory muscle use Eyes- anicteric Neck- no JVD Lungs- clear breath sounds bilaterally, no wheezing, no crackles Heart- normal rate, regular rhythm; no murmurs Abdomen- normal bowel sounds, nondistended, soft, nontender Extremities- mild lower leg edema, no warmth, mild erythema, no tenderness Neuro- alert, oriented x 3; no gross focal neurologic deficits Skin- warm & dry Discharge Data Allergies Allergy/AdvReac Type Severity Reaction Status Date / Time vancomycin Allergy Intermediate Hives Verified 08/16/19 14:08 hydrocodone [From Vicodin] Allergy Mild Rash Verified 08/16/19 14:08 Consultations 08/16/19 15:50 Consult Cardiology Routine 08/16/19 16:16 ED Decision to Admit Stat 08/16/19 17:10 Consult Case Management - Discharge Planning Routine 08/20/19 10:37 Consult Infectious Diseases Routine Hospital Course (1) Acute on chronic diastolic CHF (congestive heart failure): [employer] consulted Echo Grade 1 Diastolic Dysfunction, EF 60-65% placed on Lasix IV and Spironolactone Diuresed well, lost about 10kg creatinine increased to 2.03, held Lasix and spironolactone Creatinine improved to 1.11 [employer] recommending to resume Torsemide 20mg po BID, Spironolactone 25mg po daily, K supplement home health services arranged for patient, CHF education provided emphasized need to follow fluid and Na restriction, medication adherence ff up with Cardiology clinic in 2 weeks (2) Bilateral lower leg cellulitis: had an episode of fever during the course of admission ID consulted, given Daptomycin and Ertapenem Afebrile x 2 days No other focus of infection identified at this time Blood culture:Negative resume usual Doxycycline and cefdinir per ID, x 4 more days to complete 14 days antibiotic course ff up with [facility] next week (3) Lymphedema of both lower extremities: as above (4) Bilateral conjunctivitis: resolved cipro opth 2 gtt q4hwa x 5 days (5) URI (upper respiratory infection): significantly improved placed on: duoneb QID, incentive spirometry mucinex Q12hr Flonase antibiotics as noted above -- counselled to use Advair consistently PRN Albulterol Zyrtec and Flonase x 1 week for possible allergic rhinitis component (6) Hypertension: Lisinopril held for acute kidney injury, then resumed BP stable monitor as outpatient (7) Hyperlipidemia: continue statin (8) Pre-diabetes: A1c 6.4 encourage lifestyle modifications given multiple co morbidities (9) Sleep apnea: Bipap at HS counselled to use daily (10) COPD (chronic obstructive pulmonary disease): Management of bronchitis as noted above continue Advair PRN Levalbuterol (11) Tobacco abuse: declines nicotine patch encourage smoking cessation (12) Morbid obesity with BMI of 50.0-59.9, adult: encourage lifestyle modifications (13) Chronic back pain: stable continue prn percocet monitor (14) DVT prophylaxis: Lovenox D/C home with home health services ff up with PCP Dr. Roy on Tue08/24/2019 ff up with [employer] Dr. Alston in 2 weeks ff up with [facility] next week Total Time Total Time Spent Total Time Spent (In Minutes): 50 minutes Discharge Plan Discharge Items Patient Disposition: Home - Home Health Services Reason For Visit: CHF EXAC Discharge Diagnosis: Worsening of congestive heart failure Activity: As commented below Activity Comment: No heavy exertion, Until reevaluated by primary care physician Lifting: Wait until after follow-up appointment Exercise/Sports: Wait until after follow-up appointment Driving/Machine Use: No driving until reevaluation and allowed by primary care physician Non-emergency contact: Primary Care Provider and [employer] Call non-emergency contact if: you have any medication questions, your symptoms worsen, your pain is not controlled, your pain is worsening, your pain is unusual for you, your pain is concerning for you, you have a fever, your wound has increased redness, your wound has increased drainage and your wound pain has increased Follow-up/Referrals: Parag Alston MD [Physician] - (Please call Dr. Alston's clinic for a follow- up appointment 2 weeks after discharge.) Chavo Roy DO [Primary Care Provider] - 08/24/19 1:00 pm Diet: Carb Consistent or DM2, Heart Healthy and Low Sodium (2gm) Fluids: 1800ml (7 cups) Addtl Attending Provider Instructions: Please review your new medication list and follow instructions carefully. Take a probiotic daily for at least a month. Always use your BiPAP at night. Always follow fluid restriction, 2 g sodium diet. Call primary care physician or return to the ER immediately if with increasing swelling, redness, tenderness, warmth on the lower extremities. Follow-up with primary care physician as noted above. Follow-up with the wound care center next week. Please call their office For an appointment. Follow-up with cardiology clinic in 2 weeks. Please call their office for an appointment. No smoking/alcohol. Call your Primary Care doctor if any of the following symptoms or problems start or get worse: Shortness of breath or difficulty breathing Wake up at night short of breath Chest pain Cough Swelling of your hands, feet, or legs More fatigued or tired with your normal activity Palpitations - sudden fast heart beats WEIGHT Weigh yourself every morning after using the bathroom. Use the same scale. Wear the same amount of clothing. Write your weight down on a chart. Call your Primary Care doctor if you gain more than 2-3 pounds in 1-2 days. MEDICATIONS Use this discharge instruction sheet for medication instructions. Take your medications at the time your doctor ordered. Do not skip a dose of your medicines. If you miss a dose of medicine, take it as soon as possible, but DO NOT DOUBLE A DOSE. Read your medicine information when you get home. Know all of the side effects of your medicine. If in doubt, ask your pharmacist Call your Primary Care doctor's office if you have any side effects. Be sure all of your doctors know what medicine and herbs you take (including cold, flu, and herbal medicine). Take the following with you to your follow-up doctor appointments: Weight Chart Medication List List of questions Do not drink excessive alcohol, beer or wine. Who to Call and When: Call 911 or go to the Emergency Room if: If at any time you feel your situation is an emergency You have tightness or pain in your chest that does not go away with rest or Nitroglycerin You are very short of breath even with rest. Pending Studies at Discharge: No Stand-Alone Forms: [facility] Medications and DC Order Prescriptions: New cetirizine 10 mg Tablet 10 mg PO QAM 7 Days Qty: 7 RF: 2 guaifenesin [Mucinex] 600 mg Tablet Extended Release 12hr 600 mg PO Q12 7 Days Qty: 14 RF: 0 torsemide 10 mg Tablet 20 mg PO BID 30 Days Qty: 120 RF: 0 potassium chloride 20 mEq Tablet Extended Release 20 meq PO HS 30 Days Qty: 30 RF: 0 spironolactone 25 mg tablet 25 mg PO DAILY 30 Days Qty: 30 RF: 2 Continued white petrolatum [Petroleum Jelly] gel 1 applic topical UD RF: 0 Lactobacillus acidophilus 1 billion cell tablet 1 mmu cells PO TID RF: 0 cholecalciferol (vitamin D3) 2,000 unit capsule 2,000 unit PO DAILY RF: 0 atorvastatin 40 mg Tablet 40 mg PO HS RF: 0 sennosides [senna] 8.6 mg Tablet 2 tab PO DAILY PRN (Reason: Constipation) RF: 0 aspirin 81 mg Tablet,Delayed Release (Dr/Ec) 81 mg PO DAILY RF: 0 acetaminophen 500 mg Tablet 500 mg PO Q6H PRN (Reason: Pain) RF: 0 oxycodone-acetaminophen 5-325 mg Tablet 1 tab PO Q6H PRN (Reason: Pain) RF: 0 pantoprazole 40 mg Tablet,Delayed Release (Dr/Ec) 40 mg PO HS RF: 0 lisinopril 10 mg Tablet 10 mg PO HS RF: 0 albuterol sulfate [Ventolin HFA] 90 mcg/actuation Hfa Aerosol Inhaler 2 puff INHALATION Q4 PRN (Reason: Shortness Of Breath) RF: 0 Changed fluticasone propion-salmeterol [Advair Diskus] 250-50 mcg/dose Blister With Device 1 inh INHALATION BID 30 Days Qty: 1 RF: 0 fluticasone propionate [Flonase Allergy Relief] 50 mcg/actuation [place],Suspension 2 spray INTRANASAL DAILY 7 Days Qty: 9.9 RF: 0 Spiriva with HandiHaler 18 mcg Capsule, W/Inhalation Device 1 cap INHALATION DAILY 30 Days Qty: 1 RF: 0 Discontinued doxycycline hyclate 100 mg tablet 100 mg PO Q12H RF: 0 cyclobenzaprine 5 mg tablet 5 mg PO DAILY RF: 0 cefdinir 300 mg capsule 300 mg PO BID RF: 0 meloxicam 15 mg Tablet 15 mg PO HS RF: 0 Discharge Orders: Discharge Order (Routine); Ordered 08/22/19 Ordered By: Robert William/Other Patient Handouts: Diabetes Cook Helper Dessert Complications, Diabetes Resources, Diabetes Healthy Meals, Diabetes Carbs, Diabetes Exercise Benefits, Diabetes Exercise Get Started, Diabetes Activity Tips, Diabetes Living Life, Diabetes Manage A1C Test Admission Data Admit Date/Time: 08/16/19 15:42 Attending Provider: Robert Waldrop Admit Provider: Chad Ellis Primary Care Provider: Chavo Roy Other Providers: Neftaly Reyes ; Chad Ellis ; Akash Lopez ; Hospice,Family Other Interventions: Discharge Summary Assessment (RN) Last Done: 08/22/19 12:21 DC Date/Time DO NOT enter until pt leaves facility: 08/22/19 12:46
[2019-08-22] MEDS: DAPTOmycin 475 MG in SYRINGE 0 ML IV SCH (12:42)
--- NOTE | 2019-08-22 12:49 | Cardiology Progress Note ---
Date of Service August 22, 2019 Assessment & Plan (1) Acute on chronic diastolic CHF (congestive heart failure): (2) Sepsis: (3) Cellulitis: (4) Hypomagnesemia: (5) Acute renal insufficiency: (6) Morbid obesity with BMI of 50.0-59.9, adult: (7) Obesity hypoventilation syndrome: (8) RBBB: Resume outpatient diuretic dosing, torsemide 20 mg twice daily. Restart Aldactone and LORENA inhibitor. Antibiotic therapy per infectious disease internal medicine. Continue positive pressure ventilation nightly. Close heart failure clinic follow-up in 1 week. Subjective Patient seen and examined the bedside. Feeling better today. Creatinine is trended downward. No recurrent fevers. No dysrhythmias on telemetry. Requesting discharge if possible. Offers no complaints at this time. Review of Systems Review of Systems: All systems reviewed & are unremarkable except as noted in HPI & below Physical Exam Physical Exam: General: NAD, AAO x3, well nourished. Morbid obesity. HEENT: Normocephalic. Atraumatic. Conjunctiva pink, no scleral icterus. Neck: No carotid bruits, the carotid upstrokes are brisk. No JVD. No HJR Heart: Regular normal S-1 and S-2 no S-3 or S-4 gallop. No murmurs or rub appreciated. PMI is not displaced. No RV heave. Lungs: Clear bilateral without rales , rhonchi, or wheeze. Abdomen: Normal bowel sounds. Soft. Nontender. No masses or organomegaly. No abdominal bruits. Extremities: 1+ bilateral lower extremity pitting edema to the knees, +stasis changes. + warm to touch, + left pretibial erythema. No ulceration. Pulses: radial=2/4. Neuro: Cranial nerves grossly intact. No focal motor deficit. Results & Data Vital Signs (Past 12 Hours) Vital Signs Temp Pulse Pulse Resp BP BP Pulse Ox 08/22/19 12:21 36.7 C 61 20 138/79 116/72 95 08/22/19 11:05 36.7 C 61 20 138/79 95 08/22/19 08:00 68 08/22/19 07:00 36.5 C 65 22 119/59 L 94 08/22/19 02:52 36.6 C 60 20 115/62 91 Laboratory Results Laboratory Results - last 24 hr 08/22/19 08/22/19 05:53 05:53 WBC 8.30 RBC 3.90 L Hgb 11.9 L Hct 36.6 L MCV 93.8 MCH 30.5 MCHC 32.5 RDW Std Deviation 52.5 H RDW Coeff of [place] 15.3 H Plt Count 167 MPV 10.3 Immature Gran % (Auto) 0.1 Neut % (Auto) 76.3 Lymph % (Auto) 16.0 [place]pson % (Auto) 6.0 Eos % (Auto) 1.4 Baso % (Auto) 0.2 Immature Gran # (Auto) 0.01 Neut # (Auto) 6.32 Lymph # (Auto) 1.33 [place]pson # (Auto) 0.50 Eos # (Auto) 0.12 Baso # (Auto) 0.02 Sodium 140 Potassium 4.4 Chloride 104 Carbon Dioxide 30 Anion Gap 6.0 BUN 27 H Creatinine 1.11 Est Cr Clr Drug Dosing 133.0 Est GFR ( Amer) 88.0 Est GFR (Non-Af Amer) 75.9 BUN/Creatinine Ratio 24.4 H Glucose 125 H Calcium 8.9 (1) Sepsis Sepsis type: sepsis due to unspecified organism Sepsis acute organ dysfunction status: unspecified Qualified Code(s): A41.9 - Sepsis, unspecified organism (2) Cellulitis Site of cellulitis: extremity Site of cellulitis of extremity: lower extremity Laterality: unspecified laterality Qualified Code(s): L03.119 - Cellulitis of unspecified part of limb
== END 2019-08-22 12:46 | disposition home health service (06) | DRG 292 ==
LOC: ED 12:23 → 2E 15:42

== ENCOUNTER 2020-04-02 15:26 | Inpatient (IN) ==
[2020-04-02 16:40] LABS: Basophils # (auto) 0.02 K/uL (0-0.2); Basophils % (auto) 0.1 %; Eosinophils # (auto) 0.05 K/uL (0-0.5); Eosinophils % (auto) 0.3 %; Hematocrit (blood only) 46.7 % (42-52); Hemoglobin 15.7 g/dL (14.0-18.0); Immature Granulocytes # (auto) 0.04 K/uL (0.00-0.02); Immature Granulocytes % (auto) 0.3 %; Lymphocytes # (auto) 0.63 K/uL (1.2-3.4); Lymphocytes % (auto) 4.2 %; Mean Corpuscular Hemoglobin 31.1 pg (25-34); Mean Corpuscular Hgb Conc 33.6 g/dL (32-36); Mean Corpuscular Volume 92.5 fL (80-100); Mean Platelet Volume 11.2 fL (7.4-10.4); Monocytes # (auto) 0.58 K/uL (0.11-0.59); Monocytes % (auto) 3.8 %; Neutrophils # (auto) 13.83 K/uL (1.4-6.5); Neutrophils % (auto) 91.3 %; Platelet Count 193 K/uL (130-400); RDW Coefficient of Variation 14.7 % (11.5-14.5); RDW Standard Deviation 49.7 fL (36.4-46.3); Red Blood Count 5.05 M/uL (4.7-6.1); White Blood Count 15.15 K/uL (4.8-10.8)
[2020-04-02] MEDS ORDERED: CEFEPIME 2,000 MG/20 ML VIAL IV STA (16:47)
[2020-04-02] MEDS ORDERED: ACETAMINOPHEN 1,000 MG/100 ML VIAL IV STA (16:47)
--- NOTE | 2020-04-02 16:47 | Emergency Department Note ---
Impression & Plan Cellulitis of leg, right, Hypoxia, Weakness ED Provider Note Provider: Toby Ramírez MD DATE OF SERVICE: 04/02/2020 CHIEF COMPLAINT: Leg pain HISTORY OF PRESENT ILLNESS: Patient is a 54-year-old gentleman with a history of CHF, pickwickian syndrome, bilateral lower extremity cellulitis, diabetes, hypertension, hyperlipidemia, SIDRA, chronic venous insufficiency, DVT presenting today complaining of pain in his right leg and believes he is a cellulitis there. Reporting some generalized weakness. Pain is been fairly constant moderate severity of the right leg. Denies trauma. Temperature of 37.7 Celsius upon arrival. History of bilateral lower extremity cellulitis in August of last year hospitalized here at that time. Patient was referred from his primary doctor's office. They report that he was falling asleep during exam and patient does state that he feels quite tired. Patient does report that he stepped on a nail with the right lateral foot 2 to 3 days ago. No real bleeding prior to arrival. Patient states he has pain 2 out of 10 from the right foot through the right calf to the right distal inner thigh only. Patient denies significant pain of the left lower extremity. States noncompliance with home BiPAP. Patient states he did have a bit of a fall or a benign strike his head or LOC. States started have very minor head pain. Again patient denies pain in the neck or chest or abdomen. Patient states he was recently diagnosed as a diabetic. Tetanus shot within the last 4 years. REVIEW OF SYSTEMS: A total of 10 review of systems was obtained and negative except as stated above in the HPI. PAST MEDICAL HISTORY: As noted above MEDICATIONS: Lisinopril, aspirin SOCIAL HISTORY: Lives at home with , is a smoker PHYSICAL EXAM: GENERAL: alert and oriented in no acute distress on stretcher but appears fatigued Head: normocephalic and atraumatic EYES: No injection, discharge or icterus. PERRL NECK: Trachea midline. Supple. ENT: Mucous membranes pink and moist. LUNGS: Airway patent. No retractions. Breath sounds clear with a scant scattered wheeze. HEART: Regular rate and rhythm. No chest wall tenderness ABDOMEN: Soft and non-tender, without guarding or rebound. SKIN: Acyanotic, warm, dry, without rashes EXTREMITIES: Chronic bilateral lower extremity venous stasis change but on the right lower extremity redness and erythema of the right calf to the right foot. I do not see an appreciable puncture wound on the right foot noted on exam. Neuro intact. Has some tenderness and edema again from the foot through the right posterior calf to the right distal inner thigh. No upper thigh tenderness. No crepitus appreciated. A couple small pimples of the right medial leg noted. No large abscesses noted. NEUROLOGICAL: No aphasia. Moving all extremities. Able to stand from wheelchair to bed to transfer. Does appear quite fatigued. Oriented to person and events. EKG: Sinus rhythm 85 bpm. No PVCs notable. Some baseline artifact is appreciated. No ST segment elevation is noted. Right bundle branch block noted. QTC appears prolonged. CONTINUOUS CARDIAC MONITORING: was ordered and showed a heart rate of 90 bpm in normal sinus rhythm Patient's hypertension was referred to the hospitalist [facility] 15. HOSPITAL COURSE: 1606 Patient was first seen and H&P performed. 1907 Patient reassessed and updated. Patient was okay with admission. Discussed with his via phone. [facility] hospitalist be contacted. Patient's laboratory studies and imaging reviewed. Differential includes Infection, dehydration, metabolic abnormality, hypo/hyperglycemia, electrolyte disturbance, anemia, hypoxia, cardiac sources, intracerebral event, toxicologic, neurologic, as well as other pathologies. IMPRESSION/MEDICAL DECISION MAKING: Patient appears quite fatigued with erythema and tenderness of the right lower extremity. Temperature 37 7 orally upon arrival here. Leukocytosis is noted. Concern for cellulitis of the right lower extremity is high. Given his somewhat somnolent appearance fatigue symptoms concern given his habitus and history of noncompliance with BiPAP for hypercarbia. Metabolic work-up was also completed. Patient denies striking his head although he does say he sustained a small fall today. History of cellulitis. Ultrasound to be completed to look for possible DVT. Given Tylenol for some mild headache and pain in the leg. X-ray of the foot and leg obtained. Reports stepping on a nail several days ago but do not see any evidence of significant puncture wound at this time. Could be the nidus of possible cellulitis here. Does not appear significantly fluid overloaded at this time. Blood cultures and lactate were ordered. Given concern for infection empiric cefepime was ordered. He did step on a nail recently is a diabetic although the lower suspicion for Pseudomonas this to be covered with the cefepime. Will cover empirically with daptomycin for possible MRSA. Lactate not elevated. Doubt sepsis. No evidence of DVT. Given the significant cellulitis and his history believe admission is in his best interest. Patient was agreement. was updated with his request via phone. Not significant hypercarbic but pulse ox is a little bit low on room air here likely secondary to his pickwickian syndrome. Will need to be monitored as an inpatient. No evidence of cardiac injury. I doubt this represents acute COPD or PE. Weakness fatigue is likely sequelae of his infection. DIAGNOSIS: Right lower extremity cellulitis, hypoxia, weakness, fatigue DISPOSITION: Hospitalist will evaluate Patient was agreeable with this plan. Past Med/Surg History Medical History (Updated 04/02/20 @ 21:11 by Yun Palomo PA-C) Asthma Bulging lumbar disc Bulging of cervical intervertebral disc Chronic back pain Chronic right-sided CHF (congestive heart failure) COPD (chronic obstructive pulmonary disease) GERD with apnea Gout Hyperlipidemia Hypertension Morbid obesity with BMI of 50.0-59.9, adult Myocardial Infarction ? 10 yrs ago Osteoarthritis RBBB Recurrent cellulitis Seizure Possible seizure in 2016 evaluation normal per patient , no problems since Sleep apnea bipap with 2L oxygen Thyroid nodule just monitoring Tobacco abuse Surgical History (Updated 08/23/19 @ 00:04 by Pao Alvarenga) History of cardiac cath ? 10yrs ago--no stents History of cholecystectomy History of phacoemulsification of cataract of left eye with intraocular lens implantation History of repair of anterior cruciate ligament of right knee History of toe surgery right big toe History of tooth extraction Social History Preferred Language: Maltese Communication Ability: Effective Peach Grower Required: No Beliefs That Will Affect Care: None Current Living Situation: Spouse and Family Current Living Situation Comment: Lives with and 2 kids Feels Safe at Home: Yes Smoking Status: Current every day smoker Tobacco Type: cigarettes ; Cigarettes Per Day: 10-20 ; Second Hand Exposure: Yes ( smokes/father smoked) ; Hx Alcohol Use: No Hx Substance Use: No Allergies Allergies Allergy/AdvReac Type Severity Reaction Status Date / Time vancomycin Allergy Intermediate Hives Verified 08/16/19 14:08 hydrocodone [From Vicodin] Allergy Mild Rash Verified 08/16/19 14:08 Home Meds Home Medications Medication Instructions Recorded Confirmed acetaminophen 500 mg PO Q6H PRN 04/03/19 04/02/20 albuterol sulfate [Ventolin HFA] 2 puff INHALATION Q4 PRN 04/03/19 04/02/20 aspirin 81 mg PO DAILY 04/03/19 04/02/20 atorvastatin 40 mg PO HS 04/03/19 04/02/20 lisinopril 10 mg PO HS 04/03/19 04/02/20 oxycodone-acetaminophen 1 tab PO Q6H PRN 04/03/19 04/02/20 pantoprazole 40 mg PO HS 04/03/19 04/02/20 sennosides [senna] 2 tab PO DAILY PRN 04/03/19 04/02/20 Lactobacillus acidophilus 1 mmu cells PO TID 08/16/19 04/02/20 cholecalciferol (vitamin D3) 2,000 unit PO DAILY 08/16/19 04/02/20 white petrolatum [Petroleum Jelly] 1 applic TOPICAL UD 08/16/19 04/02/20 dulaglutide [Trulicity] 0.75 mg SUBCUT WK 04/02/20 04/02/20 empagliflozin [Jardiance] 10 mg PO DAILY 04/02/20 04/02/20 metolazone 2.5 mg PO UD 04/02/20 04/02/20 varenicline [Chantix] 1 mg PO BID 04/02/20 04/02/20 Previous Rx's Medication Instructions Recorded fluticasone propionate [Flonase 2 spray INTRANASAL DAILY 7 Days 08/22/19 Allergy Relief] #9.9 gm potassium chloride 20 meq PO HS 30 Days #30 tab 08/22/19 Results & Data (ED) Vital Signs Vital Signs - 24 hr 04/02/20 15:27 04/02/20 19:07 Temperature 37.7 C H 37.5 C Temperature Source Oral Oral Pulse Rate 83 Pulse Rate [Apical] 90 Respiratory Rate 19 24 Respiratory Effort / Characteristics Non-Labored Spontaneous Respiratory Depth Normal Respiratory Pattern Regular Blood Pressure 152/76 H Blood Pressure [Left Arm] 126/45 L Blood Pressure Mean 101 Blood Pressure Mean [Left Arm] 72 Pulse Oximetry 95 93 Oxygen Delivery Method Nasal Cannula Oxygen Flow Rate 3 Sepsis Recent Fever Within 48 Hours No Sepsis Action Taken by Nursing No Action Required Laboratory Data Result diagrams: 04/02/20 16:32 04/02/20 16:32 Lab Results 04/02/20 04/02/20 04/02/20 Range/Units 16:32 16:32 16:32 WBC 15.15 H (4.8-10.8) K/uL RBC 5.05 (4.7-6.1) M/uL Hgb 15.7 (14.0-18.0) g/dL Hct 46.7 (42-52) % MCV 92.5 (80-100) fL MCH 31.1 (25-34) pg MCHC 33.6 (32-36) g/dL RDW Std Deviation 49.7 H (36.4-46.3) fL RDW Coeff of [place] 14.7 H (11.5-14.5) % Plt Count 193 (130-400) K/uL MPV 11.2 H (7.4-10.4) fL Immature Gran % (Auto) 0.3 % Neut % (Auto) 91.3 % Lymph % (Auto) 4.2 % Morrow % (Auto) 3.8 % Eos % (Auto) 0.3 % Baso % (Auto) 0.1 % Immature Gran # (Auto) 0.04 H (0.00-0.02) K/uL Neut # (Auto) 13.83 H (1.4-6.5) K/uL Lymph # (Auto) 0.63 L (1.2-3.4) K/uL Morrow # (Auto) 0.58 (0.11-0.59) K/uL Eos # (Auto) 0.05 (0-0.5) K/uL Baso # (Auto) 0.02 (0-0.2) K/uL VBG pH (7.36-7.41) VBG pCO2 (38-50) mmHg VBG pO2 mmHg VBG HCO3 mmol/L VBG O2 Saturation % VBG Base Excess mEq/L Barometric Pressure mm/Hg Sodium 132 L (136-145) mmol/L Potassium 3.9 (3.5-5.1) mmol/L Chloride 92 L (98-107) mmol/L Carbon Dioxide 31 (21-32) mmol/L Anion Gap 9.0 (3-11) BUN 16 (7-18) mg/dl Creatinine 1.24 (0.6-1.4) mg/dl Est Cr Clr Drug Dosing Not Reportable Est GFR ( Amer) 77.0 Est GFR (Non-Af Amer) 66.4 BUN/Creatinine Ratio 12.5 (10-20) Glucose 246 H (70-99) mg/dl POC Glucose (70-99) mg/dl Lactate 1.5 (0.4-2.0) mmol/L Calcium 8.7 (8.5-10.1) mg/dl Total Bilirubin 0.9 (0.2-1) mg/dl AST 11 L (15-37) U/L ALT 24 (12-78) U/L Alkaline Phosphatase 158 H (45-117) U/L Troponin I < 0.015 (0-0.045) ng/ml C-Reactive Protein 6.96 H (0-0.29) mg/dl Total Protein 8.2 (6.4-8.2) gm/dl Albumin 3.4 (3.4-5.0) gm/dl Globulin 4.8 H (2.5-4.0) gm/dl Albumin/Globulin Ratio 0.7 L (0.9-2) 04/02/20 04/02/20 Range/Units 17:44 20:18 WBC (4.8-10.8) K/uL RBC (4.7-6.1) M/uL Hgb (14.0-18.0) g/dL Hct (42-52) % MCV (80-100) fL MCH (25-34) pg MCHC (32-36) g/dL RDW Std Deviation (36.4-46.3) fL RDW Coeff of [place]qu[place] (11.5-14.5) % Plt Count (130-400) K/uL MPV (7.4-10.4) fL Immature Gran % (Auto) % Neut % (Auto) % Lymph % (Auto) % Morrow % (Auto) % Eos % (Auto) % Baso % (Auto) % Immature Gran # (Auto) (0.00-0.02) K/uL Neut # (Auto) (1.4-6.5) K/uL Lymph # (Auto) (1.2-3.4) K/uL Morrow # (Auto) (0.11-0.59) K/uL Eos # (Auto) (0-0.5) K/uL Baso # (Auto) (0-0.2) K/uL VBG pH 7.46 H (7.36-7.41) VBG pCO2 45 (38-50) mmHg VBG pO2 52 mmHg VBG HCO3 31 mmol/L VBG O2 Saturation 87.0 % VBG Base Excess 6.7 mEq/L Barometric Pressure 737.5 mm/Hg Sodium (136-145) mmol/L Potassium (3.5-5.1) mmol/L Chloride (98-107) mmol/L Carbon Dioxide (21-32) mmol/L Anion Gap (3-11) BUN (7-18) mg/dl Creatinine (0.6-1.4) mg/dl Est Cr Clr Drug Dosing Est GFR ( Amer) Est GFR (Non-Af Amer) BUN/Creatinine Ratio (10-20) Glucose (70-99) mg/dl POC Glucose 259 H (70-99) mg/dl Lactate (0.4-2.0) mmol/L Calcium (8.5-10.1) mg/dl Total Bilirubin (0.2-1) mg/dl AST (15-37) U/L ALT (12-78) U/L Alkaline Phosphatase (45-117) U/L Troponin I (0-0.045) ng/ml C-Reactive Protein (0-0.29) mg/dl Total Protein (6.4-8.2) gm/dl Albumin (3.4-5.0) gm/dl Globulin (2.5-4.0) gm/dl Albumin/Globulin Ratio (0.9-2) Administered Medications Discontinued Medications Acetaminophen (Ofirmev) 1,000 mg in 100 mls @ 400 mls/hr IV NOW STA Stop: 04/02/20 17:01 Last Infusion: 04/02/20 18:31 Dose: 0 mls/hr Documented by: [id number] Admin: 04/02/20 18:01 Dose: 400 mls/hr Documented by: [id number] Cefepime HCl (Maxipime) 2,000 mg in 20 mls @ 5 mls/min IV NOW STA; Protocol Stop: 04/02/20 16:50 Last Admin: 04/02/20 18:00 Dose: 5 mls/min Documented by: [id number] Daptomycin 500 mg/ Syringe 10 mls @ 5 mls/min IV NOW STA; Protocol Stop: 04/02/20 18:25 Last Admin: 04/02/20 18:49 Dose: 5 mls/min Documented by: [id number] Discharge Plan Visit Data Chief Complaint: Leg Injury/Pain Stated Complaint: LEG PAIN ED Provider: Toby Ramírez Discharge Problem: Cellulitis of leg, right, Hypoxia, Weakness Forms Stand Alone Forms: [facility] Prescriptions Prescriptions: No Action white petrolatum [Petroleum Jelly] gel 1 applic topical UD RF: 0 Lactobacillus acidophilus 1 billion cell tablet 1 mmu cells PO TID RF: 0 cholecalciferol (vitamin D3) 2,000 unit capsule 2,000 unit PO DAILY RF: 0 fluticasone propionate [Flonase Allergy Relief] 50 mcg/actuation [place],Suspension 2 spray INTRANASAL DAILY 7 Days Qty: 9.9 RF: 0 potassium chloride 20 mEq Tablet Extended Release 20 meq PO HS 30 Days Qty: 30 RF: 0 metolazone 2.5 mg tablet 2.5 mg PO UD RF: 0 Chantix 1 mg tablet 1 mg PO BID RF: 0 Jardiance 10 mg tablet 10 mg PO DAILY RF: 0 Trulicity 0.75 mg/0.5 mL pen injector 0.75 mg SUBCUT WK RF: 0 atorvastatin 40 mg Tablet 40 mg PO HS RF: 0 sennosides [senna] 8.6 mg Tablet 2 tab PO DAILY PRN (Reason: Constipation) RF: 0 aspirin 81 mg Tablet,Delayed Release (Dr/Ec) 81 mg PO DAILY RF: 0 acetaminophen 500 mg Tablet 500 mg PO Q6H PRN (Reason: Pain) RF: 0 oxycodone-acetaminophen 5-325 mg Tablet 1 tab PO Q6H PRN (Reason: Pain) RF: 0 pantoprazole 40 mg Tablet,Delayed Release (Dr/Ec) 40 mg PO HS RF: 0 lisinopril 10 mg Tablet 10 mg PO HS RF: 0 albuterol sulfate [Ventolin HFA] 90 mcg/actuation Hfa Aerosol Inhaler 2 puff INHALATION Q4 PRN (Reason: Shortness Of Breath) RF: 0 Referrals Referrals: Chavo Roy DO [Primary Care Provider] -
[2020-04-02 16:58] LABS: Alanine Aminotransferase 24 U/L (12-78); Albumin Level 3.4 gm/dl (3.4-5.0); Aspartate Aminotransferase 11 U/L (15-37); BUN Creatinine Ratio 12.5 (10-20); Blood Urea Nitrogen 16 mg/dl (7-18); Calcium 8.7 mg/dl (8.5-10.1); Carbon Dioxide 31 mmol/L (21-32); Chloride 92 mmol/L (98-107); Est GFR (Non-African American) 66.4; Glucose 246 mg/dl (70-99); Potassium 3.9 mmol/L (3.5-5.1); Sodium 132 mmol/L (136-145)
[2020-04-02 17:03] LABS: Albumin Globulin Ratio 0.7 (0.9-2); Alkaline Phosphatase 158 U/L (45-117); Bilirubin,Total 0.9 mg/dl (0.2-1); C Reactive Protein 6.96 mg/dl (0-0.29); Globulin 4.8 gm/dl (2.5-4.0); Total Protein 8.2 gm/dl (6.4-8.2); Troponin I < 0.015 ng/ml (0-0.045)
--- NOTE | 2020-04-02 17:27 | XRay Report ---
XR chest 1V portable CLINICAL HISTORY: weakness COMPARISON STUDY: 08/20/2019 FINDINGS: The heart is the upper limits of normal in size. There is no focal pulmonary consolidation. There is interstitial prominence, a finding which is likely related to technical factors given the p atient's large body habitus. There are no pleural effusions.[ IMPRESSION: Interstitial prominence, likely related to technical factors. No evidence of focal pulmon [place] consolidation ACT 112: Negative or not required by law. Electronically signed by: Tenzin Sr M.D. 04/02/2020 5:26 PM
--- NOTE | 2020-04-02 17:29 | XRay Report ---
XR tibia fibula RT 2V CLINICAL HISTORY: Right lower extremity redness PAIN COMPARISON: None. DISCUSSION: No acute fractures are visualized. There are postsurgical changes of a prior ACL repair. There are advanced arthritic changes within the knee. There is anterior tibial soft tissue swelling s uperiorly. There are no bony destructive changes. IMPRESSION: 1. Superior pretibial edema 2. Postsurgical changes 3. No acute fractures 4. Advanced osteoarthritic changes within the knee 5. No bony destructive changes identified ACT 112: Negative or not required by law. Electronically signed by: Tenzin Sr M.D. 04/02/2020 5:28 PM
--- NOTE | 2020-04-02 17:30 | XRay Report ---
XR foot RT 2V CLINICAL HISTORY: Right foot pain. Redness. Patient stepped on nail. COMPARISON: None. DISCUSSION: No acute fractures or dislocations are visualized. There are advanced arthritic changes a t the level the first metatarsal phalangeal joint. No radiopaque foreign bodies are visualized. IMPRESSION: 1. No acute fractures 2. No foreign bodies identified 3. Advanced arthritic changes at the level the first metatarsal phalangeal joint ACT 112: Negative or not required by law. Electronically signed by: Tenzin Sr M.D. 04/02/2020 5:29 PM
[2020-04-02 17:54] LABS: Base Excess VBG 6.7 mEq/L; pH VBG 7.46 (7.36-7.41)
[2020-04-02] MEDS ORDERED: DAPTOmycin 500 MG in SYRINGE 0 ML IV STA (18:24)
--- NOTE | 2020-04-02 18:25 | Ultrasound Report ---
US venous doppler LE RT CLINICAL HISTORY: pain, redness COMPARISON STUDY: No previous studies for comparison. FINDINGS: The examination was limited from a technical standpoint due to the patient's large body hab itus. The calf veins were poorly visualized. No thrombus is visualized in the common femoral, superfi cial femoral, or popliteal veins. There is no definite calf thrombus although vessel visualization wa s limited IMPRESSION: 1. No evidence of right lower extremity DVT 2. Technically limited study secondary to the patient's large body habitus ACT 112: Negative or not required by law. Electronically signed by: Tenzin Sr M.D. 04/02/2020 6:24 PM
--- NOTE | 2020-04-02 20:45 | History & Physical Report ---
Date of Service April 02, 2020 Assessment & Plan (1) Cellulitis of leg, right: (2) Recurrent cellulitis: Patient with history of lymphedema and recurrent cellulitis of the B/L LE. He recently stepped on a nail, and he started to have worsening fatigue and erythema/edema of the RLE. Admit to Med/Surg Initial labs suggest infection including elevated WBC count, elevated CRP. Started on Dapto and Cefepime in the ED due to Vanco allergy. Continue these medications for now. Check baseline CK. Venous Doppler negative for DVT but not ideal study with body habitus. Check CT of the legs to look for signs of deeper infection & R/O Osteo with recurrent cellulitis. Repeat labs in the AM. Tetanus UTD (3) Hypoxia: (4) SIDRA treated with BiPAP: (5) Fatigue: Patient is noncompliant with BiPAP. Feel that his fatigue is likely multifactorial- sleep related hypoxia, noncompliance, infection Continue CPAP at night as tolerated by patient for now. Otherwise, O2 PRN. Keep SaO2 >88%. CTA Chest to R/O PE with desaturation, SOB UA & Urine tox ordered (6) Diabetes: Check A1C in AM Insulin protocol (7) DVT prophylaxis: Lovenox History of Present Illness Chief Complaint: RLE Cellulitis & fatigue Primary Care Provider: Chavo Roy DO Patient is a morbidly obese 54 yo male with history of hypopituitarism, dyslipidemia, DM Type 2, SIDRA noncompliant on BiPAP, Hypoventilation associated with obesity, Venous stasis B/L LE, HTN, Chronic diastolic HF, lymphedema B/L LE, and recurrent cellulitis of the B/L LE who presented to the ED today at the recommendation of his PCP, Dr. Roy for concern of B/L lower extremity cellulitis and worsening fatigue. The patient has had recurrent cellulitis of the B/L LE with lymphedema and venous stasis changes. He stepped on a nail over the weekend, and from that point on, he started to notice increasing erythema and edema in the RLE along with increasing fatigue. He has noted some dizziness as well and posterior headache today. He has had some nausea and chills today as well. No vision changes, hearing change, dysphagia, chest pain, abdominal pain, vomiting, diarrhea, urinary symptoms. He does have edema in his legs chronically. Slightly worse over the last few days. Appetite slightly decreased today. He does have sleep apnea and is supposed to be on BiPAP, but he does not use this regularly. He does take naps throughout the day according to his regularly, but he has been increasingly tired since the weekend. He was falling asleep at his outpatient visit today. The patient was placed on 3 L nasal cannula while in the ED. SaO2 holding in the low 90s. CRP elevated to 6.96. WBC count elevated at 15 with left shift. CXR showed interstitial prominence but no acute findings. X-Rays of the right lower extremity showed some superior pretibial edema & osteoarthritic changes but no acute process noted. Venous Doppler RLE technically limited study due to body habitus but no obvious DVT. Patient is currently not in any pain. He does feel dizzy & has mild SOB. Last TDAP 02/08/16. Allergies Allergy/AdvReac Type Severity Reaction Status Date / Time vancomycin Allergy Intermediate Hives Verified 08/16/19 14:08 hydrocodone [From Vicodin] Allergy Mild Rash Verified 08/16/19 14:08 Home Medications Home Medications Medication Instructions Recorded Confirmed Type acetaminophen 500 mg PO Q6H PRN 04/03/19 04/02/20 History albuterol sulfate [Ventolin HFA] 2 puff INHALATION Q4 PRN 04/03/19 04/02/20 History aspirin 81 mg PO DAILY 04/03/19 04/02/20 History atorvastatin 40 mg PO HS 04/03/19 04/02/20 History lisinopril 10 mg PO HS 04/03/19 04/02/20 History oxycodone-acetaminophen 1 tab PO Q6H PRN 04/03/19 04/02/20 History pantoprazole 40 mg PO HS 04/03/19 04/02/20 History sennosides [senna] 2 tab PO DAILY PRN 04/03/19 04/02/20 History Lactobacillus acidophilus 1 mmu cells PO TID 08/16/19 04/02/20 History cholecalciferol (vitamin D3) 2,000 unit PO DAILY 08/16/19 04/02/20 History white petrolatum [Petroleum Jelly] 1 applic TOPICAL UD 08/16/19 04/02/20 History fluticasone propionate [Flonase 2 spray INTRANASAL DAILY 7 Days 08/22/19 04/02/20 Rx Allergy Relief] #9.9 gm potassium chloride 20 meq PO HS 30 Days #30 tab 08/22/19 04/02/20 Rx dulaglutide [Trulicity] 0.75 mg SUBCUT WK 04/02/20 04/02/20 History empagliflozin [Jardiance] 10 mg PO DAILY 04/02/20 04/02/20 History metolazone 2.5 mg PO UD 04/02/20 04/02/20 History varenicline [Chantix] 1 mg PO BID 04/02/20 04/02/20 History Past Med/Surg History Medical History (Updated 04/02/20 @ 21:20 by Yun Palomo PA-C) Asthma Bulging lumbar disc Bulging of cervical intervertebral disc Chronic back pain Chronic right-sided CHF (congestive heart failure) COPD (chronic obstructive pulmonary disease) Diabetes GERD with apnea Gout Hyperlipidemia Hypertension Morbid obesity with BMI of 50.0-59.9, adult Myocardial Infarction ? 10 yrs ago Osteoarthritis RBBB Recurrent cellulitis Seizure Possible seizure in 2016 evaluation normal per patient , no problems since Sleep apnea bipap with 2L oxygen Thyroid nodule just monitoring Tobacco abuse Surgical History (Updated 08/23/19 @ 00:04 by Pao Alvarenga) History of cardiac cath ? 10yrs ago--no stents History of cholecystectomy History of phacoemulsification of cataract of left eye with intraocular lens implantation History of repair of anterior cruciate ligament of right knee History of toe surgery right big toe History of tooth extraction Social History Preferred Language: Sinhala Communication Ability: Effective Wastewater Engineer Required: No Beliefs That Will Affect Care: None Current Living Situation: Spouse and Family Current Living Situation Comment: Lives with and 2 kids Feels Safe at Home: Yes Smoking Status: Current every day smoker Tobacco Type: cigarettes ; Cigarettes Per Day: 10-20 ; Second Hand Exposure: Yes ( smokes/father smoked) ; Hx Alcohol Use: No Hx Substance Use: No Review of Systems Review of Systems: All systems reviewed & are unremarkable except as noted in HPI & below Physical Exam Constitutional: + morbidly obese; no acute distress Eyes: PERRL, conjunctivae normal, anicteric sclerae ENMT: external ear and nose normal, oropharynx normal Neck: trachea midline, no thyromegaly Respiratory: normal respiratory effort, lungs clear to auscultation (distant lung sounds due to body habitus) Cardiovascular: RRR, no murmur, no edema Gastrointestinal (Abdomen): normal bowel sounds, soft, nontender, no hepatosplenomegaly Musculoskeletal: Lymphedema B/L LE. Skin: Chronic venous stasis dermatitis of the B/L LE. Moderate erythema of the RLE especially the right foot and mild erythema of the LLE. Warmth noted to both LE. No wounds Neurologic: PERRL, EOMI, accommodation nl, no face palsy, no dysarthria CN's II-XI intact bilaterally Psychiatric: Affect: euthymic affect Groggy Results & Data Results & Data ([facility]) Vital Signs (Past 12 Hours) Vital Signs Temp Pulse Pulse Resp BP BP Pulse Ox 04/02/20 19:07 37.5 C 90 24 126/45 L 93 04/02/20 15:27 37.7 C H 83 19 152/76 H 95 Laboratory Results Laboratory Results - last 24 hr 04/02/20 04/02/20 04/02/20 16:32 16:32 16:32 WBC 15.15 H RBC 5.05 Hgb 15.7 Hct 46.7 MCV 92.5 MCH 31.1 MCHC 33.6 RDW Std Deviation 49.7 H RDW Coeff of [place] 14.7 H Plt Count 193 MPV 11.2 H Immature Gran % (Auto) 0.3 Neut % (Auto) 91.3 Lymph % (Auto) 4.2 [place] % (Auto) 3.8 Eos % (Auto) 0.3 Baso % (Auto) 0.1 Immature Gran # (Auto) 0.04 H Neut # (Auto) 13.83 H Lymph # (Auto) 0.63 L [place] # (Auto) 0.58 Eos # (Auto) 0.05 Baso # (Auto) 0.02 VBG pH VBG pCO2 VBG pO2 VBG HCO3 VBG O2 Saturation VBG Base Excess Barometric Pressure Sodium 132 L Potassium 3.9 Chloride 92 L Carbon Dioxide 31 Anion Gap 9.0 BUN 16 Creatinine 1.24 Est Cr Clr Drug Dosing Not Reportable Est GFR ( Amer) 77.0 Est GFR (Non-Af Amer) 66.4 BUN/Creatinine Ratio 12.5 Glucose 246 H POC Glucose Lactate 1.5 Calcium 8.7 Total Bilirubin 0.9 AST 11 L ALT 24 Alkaline Phosphatase 158 H Troponin I < 0.015 C-Reactive Protein 6.96 H Total Protein 8.2 Albumin 3.4 Globulin 4.8 H Albumin/Globulin Ratio 0.7 L 04/02/20 04/02/20 17:44 20:18 WBC RBC Hgb Hct MCV MCH MCHC RDW Std Deviation RDW Coeff of [place] Plt Count MPV Immature Gran % (Auto) Neut % (Auto) Lymph % (Auto) [place] % (Auto) Eos % (Auto) Baso % (Auto) Immature Gran # (Auto) Neut # (Auto) Lymph # (Auto) [place] # (Auto) Eos # (Auto) Baso # (Auto) VBG pH 7.46 H VBG pCO2 45 VBG pO2 52 VBG HCO3 31 VBG O2 Saturation 87.0 VBG Base Excess 6.7 Barometric Pressure 737.5 Sodium Potassium Chloride Carbon Dioxide Anion Gap BUN Creatinine Est Cr Clr Drug Dosing Est GFR ( Amer) Est GFR (Non-Af Amer) BUN/Creatinine Ratio Glucose POC Glucose 259 H Lactate Calcium Total Bilirubin AST ALT Alkaline Phosphatase Troponin I C-Reactive Protein Total Protein Albumin Globulin Albumin/Globulin Ratio Diagnostic Findings CXR: IMPRESSION: Interstitial prominence, likely related to technical factors. No evidence of focal pulmonary consolidation Venous Doppler RLE: IMPRESSION: 1. No evidence of right lower extremity DVT 2. Technically limited study secondary to the patient's large body habitus Foot X-Ray R: IMPRESSION: 1. No acute fractures 2. No foreign bodies identified 3. Advanced arthritic changes at the level the first metatarsal phalangeal joint Tib/Rib X-Ray R: IMPRESSION: 1. Superior pretibial edema 2. Postsurgical changes 3. No acute fractures 4. Advanced osteoarthritic changes within the knee 5. No bony destructive changes identified Supervising Physician Co-Signing Physician Notes I, Dr. Chad Ellis, have seen and examined the patient Jorge Alberto Sanchez with physician assistant maintenance manager and would like to comment that On physical exam General: obese body habitus Lower extremities: redness of posterior right leg Abdomen: soft, nontender Lungs: on nasal cannula oxygen, no wheezing Heart: regular rate RIGHT LOWER EXTREMITY CELLULITIS OBSTRUCTIVE SLEEP APNEA, NON-ADHERENCE TO CPAP HYPOXIA MORBID OBESITY TYPE 2 DIABETES MELLITUS WITHOUT LONG TERM CURRENT USE OF INSULIN -This is a 54 year old Male who is noncompliant with regular use of CPAP at home for obstructive sleep apnea and with history of recurrent leg cellulitis who presents with redness of posterior right leg and recent stepping on a nail (apparently he is up to date with tetanus vaccinations). Patient had ultrasound of lower extremities that did not show DVT of right lower extremity but it was technically difficult. In addition, patient on oxygen 3 liters/min while in the ED he does not use chronic oxygen at home but he does reports that when he feels short of breath at home, he would use the CPAP with oxygen settings on. Patient will have CTA of the chest to rule out pulmonary embolism and CT scan of lower extremity to rule out osteomyelitis. Monitor oxygen requirements -continue cefepime and daptomycin empirically -hold home dose statin while on daptomycin for now and trend creatinine kinase -hold LORENA inhibitor and hold home diuretics for now while on IV fluids for now because of CT contrast -Type 2 diabetes mellitus without half-way current use of insulin: hold off home dose Trulicity (Dulaglutide) for now, given insulin as needed, check HbA1c -Morbid Obesity: PT/OT evaluation for ambulation -Agree with other assessment and plans as documented by physician assistant maintenance manager My colleague Dr. Betancourt will be following the patient as hospitalist starting on 04/03/2020
[2020-04-02 21:35] LABS: Glucose 270 mg/dl (70-99)
[2020-04-02 21:41] LABS: Creatine Kinase 51 U/L (39-308)
[2020-04-02] MEDS ORDERED: DEXTROSE 50% 50 ML SYRINGE IV PRN (22:52)
[2020-04-02] MEDS ORDERED: GLUCOSE 10 TABS/TUBE PO PRN (22:52)
[2020-04-02] MEDS ORDERED: GLUCOSE 40% GEL 15 GM TUBE PO PRN (22:52)
[2020-04-02] MEDS ORDERED: SENNA 8.6 MG TAB PO PRN (22:52)
[2020-04-02] MEDS ORDERED: GLUCAGON FOR INJ 1 MG VIAL SQ PRN (22:52)
[2020-04-02] MEDS ORDERED: SODIUM CHLORIDE 0.9% 1000ML 1,000 ML IV SCH (22:52)
[2020-04-02] MEDS ORDERED: CARBOHYDRATES FOR HYPOGLYCEMIA PO PRN (22:52)
--- NOTE | 2020-04-02 22:54 | CT Scan Report ---
CT angio head w con CLINICAL HISTORY: stroke like symptoms TECHNIQUE: CT angiography of the head was performed in a dynamic helical fashion during intravenous a dministration of 118 cc of Optiray 320. MIP imaging was performed. A dose lowering technique was util ized adhering to the principles of ALARA. CT DOSE: 1387.06 mGy.cm COMPARISON STUDY: No previous studies for comparison. FINDINGS: There are no lesion suspicious for aneurysm. There are no major intracranial branch occlusi ons. The dural venous sinuses appear patent. IMPRESSION: Normal study. ACT 112: Negative or not required by law. Electronically signed by: Tenzin Sr M.D. 04/02/2020 10:53 PM
--- NOTE | 2020-04-02 22:55 | CT Scan Report ---
CT head/brain wo con CLINICAL HISTORY: Change in mental status. Lethargy. Stroke like symptoms.. COMPARISON STUDY: No previous studies for comparison. TECHNIQUE: Axial CT of the brain is performed from the vertex to the skull base. IV contrast was not administered for this examination. A dose lowering technique was utilized adhering to the principles of ALARA. CT DOSE: FINDINGS: No intra or extra-axial mass lesions are visualized. There is no CT evidence of acute cortical infarc tion. There is no evidence of midline shift. There is no acute hemorrhage. No calvarial fractures ar e visualized. There is a punctate basilar artery calcification There is no evidence of pathologic ventricular dilatation. There is a left maxillary sinus retention cyst. IMPRESSION: No acute intracranial findings ACT 112: Negative or not required by law. Electronically signed by: Tenzin Sr M.D. 04/02/2020 10:53 PM
--- NOTE | 2020-04-02 22:57 | CT Scan Report ---
CT angio neck with con CLINICAL HISTORY: stroke like symptoms COMPARISON STUDY: No previous studies for comparison. TECHNIQUE: CT angiography was performed from the aortic arch to the skull base. MIP imaging was perfo rmed. The patient was scanned in a dynamic helical fashion during intravenous administration of 118 c c of Optiray 320. A dose lowering technique was utilized adhering to the principles of ALARA. CT DOSE: Technique: CT angiogram of the carotid and vertebral arteries was obtained using intravenous contrast and 3-D reconstruction. NASCET criteria was utilized. Findings: The right carotid revealed no evidence of aneurysm and no evidence of dissection. There is no evidenc e of hemodynamic significant stenosis. The left carotid revealed no evidence of hemodynamic significant stenosis. There is no evidence of an eurysm. There is no evidence of dissection. There is no evidence of hemodynamically significant vertebral stenosis. There is no evidence of verte bral dissection. Lower vertebral artery assessment is moderately limited due to the patient's very la rge body habitus and beam hardening artifact. IMPRESSION: No evidence of hemodynamically significant carotid or vertebral artery stenosis. No evidence of disse ction. ACT 112: Negative or not required by law. Electronically signed by: Tenzin Sr M.D. 04/02/2020 10:55 PM
[2020-04-02] MEDS ORDERED: OPTIRAY 320 125ml IV PRN (23:01)
[2020-04-02] MEDS ORDERED: CONSULT PHARMACY PRN (23:24)
[2020-04-03] MEDS: PANTOprazole 40 MG TAB PO SCH ×2 (00:16→20:34)
[2020-04-03] MEDS: ACETAMINOPHEN 325 MG TAB PO PRN ×4 (00:18→17:49)
[2020-04-03 01:45] LABS: Appearance Urine Clear (Clear); Bilirubin Urine Negative (Negative); Blood Urine Negative (Negative); Color Urine Orange; Glucose Urine UA 3+ (Negative); Ketones Urine Negative (Negative); Leukocyte Esterase Urine Negative (Negative); Nitrite Urine Negative (Negative); Protein Urine Negative (Negative); Specific Gravity Urine 1.042 (1.000-1.030); Urobilinogen Urine Negative (Negative)
[2020-04-03 02:16] LABS: Amphetamines+Metham, Urine Neg (Neg); Barbiturates, Urine Neg (Neg); Benzodiazepine, Urine Neg (Neg); Cocaine, Urine Neg (Neg); MDMA (Ecstacy), Urine Neg (Neg); Methadone, Urine Neg (Neg); Opiate, Urine Neg (Neg); Phencyclidine, Urine Neg (Neg)
[2020-04-03] MEDS: CEFEPIME 2,000 MG in SYRINGE 7.5 ML IV SCH ×2 (06:17→17:50)
--- NOTE | 2020-04-03 06:29 | Electrocardiogram Report ---
Test Reason : Blood Pressure : / mmHG Vent. Rate : 085 BPM Atrial Rate : 085 BPM P-R Int : 162 ms QRS Dur : 154 ms QT Int : 512 ms P-R-T Axes : 049 -23 026 degrees QTc Int : 609 ms Sinus rhythm Possible Left atrial enlargement Right bundle branch block Left ventricular hypertrophy Possible Inferior infarct , age undetermined Abnormal ECG When compared with ECG of 18-AUG-2019 06:48, Criteria for Inferior infarct is now Present Confirmed by Eric Ryan ([id number]) on 04/03/2020 6:28:52 AM Referred By: Chavo Roy Confirmed By:Eric Ryan
[2020-04-03 08:40] LABS: Hematocrit (blood only) 43.1 % (42-52); Hemoglobin 14.5 g/dL (14.0-18.0); Mean Corpuscular Hemoglobin 31.4 pg (25-34); Mean Corpuscular Hgb Conc 33.6 g/dL (32-36); Mean Corpuscular Volume 93.3 fL (80-100); Mean Platelet Volume 11.2 fL (7.4-10.4); Platelet Count 185 K/uL (130-400); RDW Coefficient of Variation 14.9 % (11.5-14.5); RDW Standard Deviation 50.6 fL (36.4-46.3); Red Blood Count 4.62 M/uL (4.7-6.1); White Blood Count 12.13 K/uL (4.8-10.8)
[2020-04-03 08:52] LABS: Prothrombin Time 10.7 Seconds (9.0-12.0)
[2020-04-03] MEDS ORDERED: OPTIRAY 320 125ml IV PRN (09:03)
[2020-04-03 09:05] LABS: BUN Creatinine Ratio 12.7 (10-20); Calcium 8.5 mg/dl (8.5-10.1); Creatinine Clr Calc Pharmacy 150.7 ml/min; Est GFR (African American) 95.2; Est GFR (Non-African American) 82.2; Potassium 3.6 mmol/L (3.5-5.1)
--- NOTE | 2020-04-03 09:15 | CT Scan Report ---
CT angio chest PE protocol CLINICAL HISTORY: 54 years-old Male presenting with SOB with hypoxia. TECHNIQUE: Multidetector CT angiography of the chest was performed after administration of intravenou s contrast. 3-D volumetric and/or maximum intensity projection (MIP) images were subsequently reconst ructed for review. IV contrast: 92 mL of Optiray 320. One or more dose lowering techniques were used consistent with the principles of ALARA (as low as reasonably achievable), including automatic exposu re control, mA or kV adjustment to individual patient size, and/or use of iterative reconstruction. COMPARISON: Chest x-ray performed yesterday. CT DOSE (mGy.cm): The estimated cumulative dose is 1004.07 mGy.cm. FINDINGS: Tierce Filler topogram: Unremarkable. Pulmonary vasculature: The study is suboptimal for the assessment of the pulmonary vascular tree secondary to timing of the contrast bolus and respiratory motion artifact. Allowing for limited image quality, no central fillin g defect to suggest pulmonary embolus. Main pulmonary artery enlarged measuring 4 cm in diameter. No flattening of the interventricular septum. No intracardiac filling defect. No reflux of contrast into the hepatic veins. Remaining chest: Soft tissues: Normal thyroid. Severe gynecomastia on the left. Allowing for incomplete visualization of the right nipple, this may be asymmetric. No axillary, supraclavicular, mediastinal, or hilar lymp hadenopathy. Normal aorta. Top normal heart size. No pericardial or pleural effusion. Suspected hepat ic steatosis. Lungs and airways: No pneumothorax. Central airways patent. Pulmonary arteries are not significantly enlarged relative to adjacent bronchi. No interlobular septal thickening. Respiratory motion artifact mildly degrades evaluation of the lung parenchyma. Allowing for this, minimal dependent changes like ly atelectasis. Prominent calcified granuloma in the left upper lobe. No other focal nodule or infilt rate. Musculoskeletal: Mild degenerative changes of the spine. IMPRESSION: 1. Allowing for suboptimal image quality, no evidence of pulmonary embolus. 2. Pulmonary artery hypertension. 3. No other evidence of acute intrathoracic pathology. 4. Severe left gynecomastia. ACT 112: Negative or not required by law. Electronically signed by: Jamar Winters M.D. 04/03/2020 9:14 AM
--- NOTE | 2020-04-03 09:20 | CT Scan Report ---
CT SCAN OF THE RIGHT TIBIA AND FIBULA WITHOUT IV CONTRAST CLINICAL HISTORY: Right lower extremity swelling and erythema. COMPARISON STUDY: Radiographs of the right tibia and fibula dated 04/02/2020. TECHNIQUE: CT scan of the right tibia and fibula is performed from the knee to the ankle. Images are reviewed in the axial, sagittal, and coronal planes. IV contrast was not administered for this examin ation. A dose lowering technique was utilized adhering to the principles of ALARA. CT DOSE: 513.02 mGy.cm FINDINGS: The skeletal structures are osteopenic. No acute fracture is seen. There is minimal benign- appearing periostitis identified along the distal fibular shaft (best seen on axial image #390), like ly related to chronic stasis. There is no bony erosion or CT evidence of osteomyelitis. Osteoarthriti c change is present in the knee with postoperative change consistent with previous ACL repair. The an kle joint is maintained. An os trigonum is incidentally noted. There is generalized atrophy of the re gional musculature. Extensive subcutaneous soft tissue edema is present throughout the right lower ex tremity with overlying dermal thickening. There is no evidence of organized fluid collection. No subc utaneous gas is identified. Soft tissue edema is also seen in the partially visualized left lower ext remity. The Achilles tendon is intact as imaged. IMPRESSION: 1. No acute bony abnormality is identified. 2. Diffuse soft tissue edema is seen throughout the right lower extremity. This could be related to f luid overload and/or possibly cellulitis. Clinical correlation will be essential. 3. Soft tissue edema is also seen in the partially imaged left lower extremity. 4. No organized fluid collection is seen to suggest abscess. ACT 112: Negative or not required by law. Electronically signed by: Wilfrid Roy M.D. 04/03/2020 9:19 AM
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
[2020-04-03] MEDS: LACTOBACILLUS ACIDOPHILUS (FLORANEX) TAB PO SCH ×3 (09:29→20:34)
[2020-04-03] MEDS: ASPIRIN 81 MG ECTAB PO SCH (09:30)
[2020-04-03] MEDS: CHOLECALCIFEROL 1,000 UNITS 25 MCG TAB PO SCH (09:30)
[2020-04-03 09:37] LABS: Estimated Average Glucose 252 mg/dl; Hemoglobin A1C 10.4 % (4.5-5.6)
[2020-04-03] MEDS: ENOXAPARIN INJ 40 MG/0.4 ML SYR SQ SCH (09:40)
[2020-04-03] MEDS ORDERED: PNEUMOCOCCAL Polysaccharide Vaccine 25mcg/0.5mL vial/Syr IM ONE (09:45)
[2020-04-03] MEDS: INSULIN ASPART 100 UNITS/ML 3 ML PEN SC SCH ×4 (10:02→22:02)
[2020-04-03] MEDS ORDERED: PHARMACY GLYCEMIC MGMT CONSULT PRN (10:27)
[2020-04-03] MEDS ORDERED: INSULIN GLARGINE SOLOSTAR 100 UNITS/ML 3 ML PEN SC ONE (10:45)
[2020-04-03] MEDS ORDERED: CEFEPIME CONSULT ACTIVE PRN (13:25)
[2020-04-03] MEDS ORDERED: DAPTOMYCIN CONSULT ACTIVE PRN (13:25)
--- NOTE | 2020-04-03 13:42 | Hospitalist Progress Note ---
Date of Service April 03, 2020 Assessment & Plan (1) Cellulitis of leg, right: (2) Recurrent cellulitis: Patient with history of lymphedema and recurrent cellulitis of the B/L LE. He recently stepped on a nail, and he started to have worsening fatigue and erythema/edema of the RLE. Started on Dapto and Cefepime in the ED due to Vanco allergy. Venous Doppler negative for DVT CT of the legs does not show any abscess or osteomyelitis Leukocytosis improving As clinical condition improved, plan to de-escalate antibiotics. He is not sure of his tetanus immunization history Will give Tetanus Ig and vaccination (3) Hypoxia: (4) SIDRA treated with BiPAP: (5) Fatigue: Patient is noncompliant with BiPAP. Fatigue felt to be likely multifactorial- sleep related hypoxia, noncompliance, infection Continue CPAP at night as tolerated by patient for now. Otherwise, O2 PRN. Keep SaO2 >88%. CTA Chest negative for PE I counselled patient extensively on need for adherence to CPAP We also discussed weight loss measures (6) Diabetes: A1c is 10.4, was 6.4 in 07/2019 Review of [facility] chart notes showed extensive history of poor adherence to meds/therapies I counselled patient extensively on need for proper glycemic control Glycemic consult Will need insulin therapy on discharge DM educator consult as well (7) DVT prophylaxis: Lovenox Admission and Anticipated Discharge Date Admission Date: April 02, 2020 Subjective Patient seen and examined Reports right leg pain and fatigue. Denies any fevers, chills, nausea vomiting Denies any chest pain, shortness of breath, cough Denies any abdominal pain, diarrhea constipation Physical Exam Constitutional: + morbidly obese Eyes: PERRL, conjunctivae normal, anicteric sclerae ENMT: external ear and nose normal, oropharynx normal Respiratory: normal respiratory effort, lungs clear to auscultation Cardiovascular: Rate/Rhythm: regular rate and regular rhythm S1-S2 Gastrointestinal (Abdomen): normal bowel sounds, soft, nontender, no hepatosplenomegaly Musculoskeletal: Right leg erythema, tenderness Has chronic bilateral venous dermatitis stasis changes Neurologic: PERRL, EOMI, accommodation nl, no face palsy, no dysarthria Psychiatric: A+Ox3, euthymic affect Results & Data Results & Data ([facility]) Vital Signs (Past 12 Hours) Vital Signs Temp Pulse Resp BP Pulse Ox 04/03/20 07:10 36.5 C 81 18 120/74 93 Laboratory Results Short CBC 04/03/20 Range/Units 08:11 WBC 12.13 H (4.8-10.8) K/uL Hgb 14.5 (14.0-18.0) g/dL Hct 43.1 (42-52) % Plt Count 185 (130-400) K/uL BMP 04/02/20 04/03/20 21:03 08:11 Sodium 132 L Potassium 3.6 Chloride 94 L Carbon Dioxide 30 BUN 13 Creatinine 1.04 Glucose 270 H 255 H Calcium 8.5 Cardiac Enzymes 04/02/20 Range/Units 21:03 Total Creatine Kinase 51 (39-308) U/L Urine 04/03/20 Range/Units 01:30 Urine Color [place] Urine Appearance Clear (Clear) Urine pH 6.0 (4.5-7.5) Ur Specific [place] 1.042 H (1.000-1.030) Urine Protein Negative (Negative) Urine Glucose (UA) 3+ H (Negative)
[2020-04-03] MEDS ORDERED: SODIUM CHLORIDE 0.9% 1000ML 1,000 ML IV SCH (14:00)
--- NOTE | 2020-04-03 14:13 | Pharmacy Report ---
Glycemic Control Consultation - Date of Service April 03, 2020 - Scope Scope: Glycemic Pharmacist consulted for glycemic control and to write orders per [facility] inpatient glycemic control protocol. - Objective Weight: 204.117 kg Accuchecks BSG (last 24hrs): 04/02/20 04/02/20 04/02/20 16:32 20:18 21:03 Glucose 246 H 270 H POC Glucose 259 H 04/02/20 04/02/20 04/03/20 21:30 23:31 08:11 Glucose 255 H POC Glucose 268 H 227 H 04/03/20 04/03/20 08:11 12:07 Glucose POC Glucose 257 H 271 H Laboratory Data (last 24hrs): 04/02/20 04/03/20 16:32 08:11 Potassium 3.9 3.6 Carbon Dioxide 31 30 Anion Gap 9.0 8.0 Creatinine 1.24 1.04 Est Cr Clr Drug Dosing Not Reportable 150.7 HbA1c: Hemoglobin A1c 10.4 % (4.5-5.6) H 04/03/20 08:11 - Recent Pertinent Medications Outpatient Anti-diabetic Regimen: * Trulicity 0.75 mg SQ weekly, Jardiance 10 mg daily * A1c = 10.4 % 08/20/19 (up from 6.4% on 08/20/19) The patient is currently receiving: * Basal insulin: NONE * Correctional Insulin: Novolog Correction per scale ACHS Goal Range: Low 100 mg/dL - High 140 mg/dL Correction Factor: 30 mg/dL/unit * Prandial insulin: Per carb ratio of 1 unit per 10 grams CHO consumed - Assessment & Plan Assessment & Plan: ASSESSMENT: * 54 y/o male admitted for RLE cellulitis. History of T2DM, uncontrolled as per A1c. Outpatient regimen consists of single oral agent + GLP-1. Will likely need addition of basal insulin on discharge. * BSGs thus far have all been in the mid-200s. Will need tight control in the setting of infection. * Will utilize SQ basal/bolus insulin as an inpatient, based on insulin calculator estimates. PLAN FOR INPATIENT GLYCEMIC CONTROL: * Holding outpatient diabetes medications * Basal insulin - ADD * Lantus 32 units x 1 now, then * Lantus 22-32 units BID per scale (see MAR for details) * Bolus insulin - tighten CF/CR * NovoLog per scale ACHS or Q6hrs while NPO * Goal Range: Low 100 mg/dL - High 140 mg/dL * Correction Factor: 20 mg/dL/unit * Nutritional / Prandial insulin per carb ratio of 1 unit per 6 grams CHO consumed * Please note that the plan above was derived based on current level of insulin resistance and hospital stress. These recommendations are appropriate for inpatient admission only. Plan of care upon discharge will need to be reassessed to avoid potential outpatient hypo/hyperglycemia. Thank you.
[2020-04-03] MEDS ORDERED: TETANUS IMMUNE GLOBULIN (HUMAN) 250 UNITS/ML SYR IM ONE (17:48)
[2020-04-03] MEDS ORDERED: DIPHTHERIA/TETANUS TOX ADSORBED ULTRAFINED 0.5 ML SYR/VIAL IM ONE (17:48)
[2020-04-03] MEDS ORDERED: DAPTOmycin 500 MG in SYRINGE 0 ML IV SCH (18:00)
[2020-04-03] MEDS: INSULIN GLARGINE SOLOSTAR 100 UNITS/ML 3 ML PEN SC SCH (22:01)
[2020-04-04] MEDS ORDERED: INSULIN ASPART 100 UNITS/ML 3 ML PEN SC ONE (02:00)
[2020-04-04] MEDS: CEFEPIME 2,000 MG in SYRINGE 7.5 ML IV SCH (05:54)
[2020-04-04 07:04] LABS: Hemoglobin 13.3 g/dL (14.0-18.0); Mean Corpuscular Hemoglobin 30.7 pg (25-34); Mean Corpuscular Hgb Conc 32.4 g/dL (32-36); Mean Corpuscular Volume 94.7 fL (80-100); Mean Platelet Volume 11.2 fL (7.4-10.4); Platelet Count 183 K/uL (130-400); RDW Coefficient of Variation 14.9 % (11.5-14.5); RDW Standard Deviation 51.8 fL (36.4-46.3); Red Blood Count 4.33 M/uL (4.7-6.1); White Blood Count 9.46 K/uL (4.8-10.8)
[2020-04-04] MEDS: ACETAMINOPHEN 325 MG TAB PO PRN ×2 (07:34→17:26)
[2020-04-04] MEDS: ENOXAPARIN INJ 40 MG/0.4 ML SYR SQ SCH (07:35)
[2020-04-04] MEDS: LACTOBACILLUS ACIDOPHILUS (FLORANEX) TAB PO SCH ×3 (07:35→21:23)
[2020-04-04] MEDS: ASPIRIN 81 MG ECTAB PO SCH (07:35)
[2020-04-04] MEDS: CHOLECALCIFEROL 1,000 UNITS 25 MCG TAB PO SCH (07:35)
[2020-04-04 07:38] LABS: BUN Creatinine Ratio 14.1 (10-20); Calcium 8.6 mg/dl (8.5-10.1); Creatinine Clr Calc Pharmacy 168.5 ml/min; Est GFR (Non-African American) 94.1; Potassium 3.7 mmol/L (3.5-5.1)
[2020-04-04] MEDS: INSULIN ASPART 100 UNITS/ML 3 ML PEN SC SCH ×4 (10:07→21:26)
[2020-04-04] MEDS: INSULIN GLARGINE SOLOSTAR 100 UNITS/ML 3 ML PEN SC SCH ×2 (10:07→21:26)
--- NOTE | 2020-04-04 13:36 | Hospitalist Progress Note ---
Date of Service April 04, 2020 Assessment & Plan (1) Cellulitis of leg, right: (2) Recurrent cellulitis: Patient with history of lymphedema and recurrent cellulitis of the B/L LE. He recently stepped on a nail, and he started to have worsening fatigue and erythema/edema of the RLE. Started on Dapto and Cefepime in the ED due to Vanco allergy. Venous Doppler negative for DVT CT of the legs does not show any abscess or osteomyelitis Leukocytosis resolved today Antibiotics deescalated to ceftriaxone Got tetanus vaccine. Tetanus Ig not available in pharm (3) Hypoxia: (4) SIDRA treated with BiPAP: (5) Fatigue: Patient is noncompliant with BiPAP. Fatigue felt to be likely multifactorial- sleep related hypoxia, noncompliance, infection Continue CPAP at night as tolerated by patient for now. Otherwise, O2 PRN. Keep SaO2 >88%. CTA Chest negative for PE Counselled again on need for adherence to CPAP and weight measures Discussed all this with patient and on the phone (6) Diabetes: A1c is 10.4, was 6.4 in 07/2019 Review of [facility] chart notes showed extensive history of poor adherence to meds/therapies I provided more counselling regarding need for proper glycemic control Provided diabetes education DM educator recommendations noted Patient will need insulin on discharge Will keep till tomorrow to optimize glycemic control (7) DVT prophylaxis: Lovenox Admission and Anticipated Discharge Date Admission Date: April 02, 2020 Subjective Patient seen and examined Still reports right leg pain and swelling Denied any chest pain, shortness of breath Denied any fevers, chills, nausea or vomiting Denied any diarrhea, abdominal pain Physical Exam Constitutional: + morbidly obese Eyes: PERRL, conjunctivae normal, anicteric sclerae ENMT: external ear and nose normal, oropharynx normal Respiratory: normal respiratory effort, lungs clear to auscultation Cardiovascular: Rate/Rhythm: regular rate and regular rhythm Gastrointestinal (Abdomen): normal bowel sounds, soft, nontender, no hepatosplenomegaly Musculoskeletal: Right leg erythema and tenderness Has chronic bilateral venous dermatitis stasis changes Neurologic: PERRL, EOMI, accommodation nl, no face palsy, no dysarthria Psychiatric: A+Ox3, euthymic affect Results & Data Results & Data ([facility]) Vital Signs (Past 12 Hours) Vital Signs Temp Pulse Pulse Resp BP BP Pulse Ox 04/04/20 10:10 70 131/72 90 04/04/20 07:00 36.6 C 68 18 135/66 95 04/04/20 03:51 78 16 94 Laboratory Results Short CBC 04/04/20 Range/Units 06:17 WBC 9.46 (4.8-10.8) K/uL Hgb 13.3 L (14.0-18.0) g/dL Hct 41.0 L (42-52) % Plt Count 183 (130-400) K/uL BMP 04/04/20 06:17 Sodium 136 Potassium 3.7 Chloride 100 Carbon Dioxide 29 BUN 13 Creatinine 0.93 Glucose 188 H Calcium 8.6
--- NOTE | 2020-04-04 14:30 | Pharmacy Report ---
Pharmacy Glycemic Short Note 2 - Date of Service April 04, 2020 - Glycemic Short BSG Results (Last 24 hours): 04/03/20 04/03/20 04/04/20 17:04 20:53 01:59 Glucose POC Glucose 198 H 271 H 205 H 04/04/20 04/04/20 04/04/20 06:17 08:04 12:12 Glucose 188 H POC Glucose 188 H 225 H OUTPATIENT ANTIDIABETIC REGIMEN: * Trulicity 0.75 mg SQ weekly, Jardiance 10 mg daily * A1c = 10.4 % 08/20/19 (up from 6.4% on 08/20/19) INPATIENT GLYCEMIC CONTROL AND CAUSES OF INSULIN RESISTANCE: ASSESSMENT: 04/03: * 54 y/o male admitted for RLE cellulitis. History of T2DM, uncontrolled as per A1c. Outpatient regimen consists of single oral agent + GLP-1. Will likely need addition of basal insulin on discharge. * BSGs thus far have all been in the mid-200s. Will need tight control in the setting of infection. * Will utilize SQ basal/bolus insulin as an inpatient, based on insulin calculator estimates. 04/04: * Patient received 108 units of insulin yesterday * BSGs have started to improve today but remain elevated. Difficult to assess pre-lunch BSG as AM Novolog given at 1000. * Will not plan to adjust basal since fasting has started to improve. Prandial coverage could be tightened to match basal requirements. PLAN FOR INPATIENT GLYCEMIC CONTROL: * Hold outpatient oral diabetes medications * Basal insulin - no change * Lantus 22-32 units SQ BID per ordered scale * Bolus insulin - tighten CF/CR * NovoLog per scale ACHS or Q6hrs while NPO * Goal Range: Low 100 mg/dL - High 140 mg/dL * Correction Factor: 15 mg/dL/unit * Nutritional / Prandial insulin per carb ratio of 1 unit per 5 grams CHO consumed PLAN FOR DISCHARGE: * A1c 10.4% on 04/03/20 * Goal A1c < 7% for patient's age/comorbidities * CDE spoke with patient today. Trulicity and Jardiance were just initiated 2 weeks ago so we are likely not seeing the full effects of these. Patient willing to start metformin, which is recommended as first line. * Metformin should be started at the time type 2 diabetes is diagnosed unless there are contraindications. Metformin is effective and safe, is inexp ensive, and may reduce risk of cardiovascular events and . * B12 supplementation may be necessary with oysterman metformin use * FDA has revised the label for metformin to reflect its safety in patients with eGFR 30 mL/min or above * Recommend starting: Metformin XR 500mg PO daily with evening meal. Typically the XR formulation of metformin is better tolerated than the immediate release formulation. Continue to titrate metformin dosing upwards as recommended. Dosage increases should be made in increments of 500 mg weekly, up to 2,000 mg/day PO, given in divided doses. Doses above 2000 mg/day may be better tolerated if divided and given 3 times per day with meals. Max: 2,550 mg/day PO, in divided doses * If plan is to add basal insulin on discharge, would initiate slow as patient is hesitant to start this. Suggest starting with Lantus/Basaglar 25 units qHS.
[2020-04-04] MEDS ORDERED: cefTRIAXone SODIUM 1,000 MG in DEXTROSE 5% 50 ML IV SCH (17:00)
[2020-04-04] MEDS: PANTOprazole 40 MG TAB PO SCH (21:23)
[2020-04-05] MEDS ORDERED: LORazepam 0.5 MG TAB PO PRN (02:56)
[2020-04-05] MEDS ORDERED: LORazepam 0.25 MG/0.5 ML VIAL IV STA (04:32)
[2020-04-05 05:47] LABS: Hematocrit (blood only) 41.9 % (42-52); Hemoglobin 13.3 g/dL (14.0-18.0); Mean Corpuscular Hemoglobin 30.1 pg (25-34); Mean Corpuscular Hgb Conc 31.7 g/dL (32-36); Mean Corpuscular Volume 94.8 fL (80-100); Mean Platelet Volume 10.8 fL (7.4-10.4); Platelet Count 202 K/uL (130-400); RDW Coefficient of Variation 14.7 % (11.5-14.5); RDW Standard Deviation 50.7 fL (36.4-46.3); Red Blood Count 4.42 M/uL (4.7-6.1); White Blood Count 7.46 K/uL (4.8-10.8)
[2020-04-05 06:22] LABS: BUN Creatinine Ratio 12.7 (10-20); Calcium 8.8 mg/dl (8.5-10.1); Creatinine Clr Calc Pharmacy 152.1 ml/min; Est GFR (African American) 96.3; Est GFR (Non-African American) 83.1; Potassium 3.7 mmol/L (3.5-5.1)
[2020-04-05] MEDS: CHOLECALCIFEROL 1,000 UNITS 25 MCG TAB PO SCH (08:51)
[2020-04-05] MEDS: ASPIRIN 81 MG ECTAB PO SCH (08:51)
[2020-04-05] MEDS: LACTOBACILLUS ACIDOPHILUS (FLORANEX) TAB PO SCH ×2 (08:52→13:48)
[2020-04-05] MEDS: ENOXAPARIN INJ 40 MG/0.4 ML SYR SQ SCH (08:52)
[2020-04-05] MEDS: INSULIN GLARGINE SOLOSTAR 100 UNITS/ML 3 ML PEN SC SCH (08:53)
[2020-04-05] MEDS: INSULIN ASPART 100 UNITS/ML 3 ML PEN SC SCH ×2 (08:55→12:29)
--- NOTE | 2020-04-05 09:41 | Pharmacy Report ---
Pharmacy Glycemic Short Note 2 - Date of Service April 05, 2020 - Glycemic Short BSG Results (Last 24 hours): 04/04/20 04/04/20 04/04/20 12:12 17:14 20:34 Glucose POC Glucose 225 H 132 H 164 H 04/05/20 04/05/20 05:34 08:17 Glucose 185 H POC Glucose 183 H OUTPATIENT ANTIDIABETIC REGIMEN: * Trulicity 0.75 mg SQ weekly, Jardiance 10 mg daily * A1c = 10.4 % 08/20/19 (up from 6.4% on 08/20/19) INPATIENT GLYCEMIC CONTROL AND CAUSES OF INSULIN RESISTANCE: ASSESSMENT: 04/03: * 54 y/o male admitted for RLE cellulitis. History of T2DM, uncontrolled as per A1c. Outpatient regimen consists of single oral agent + GLP-1. Will likely need addition of basal insulin on discharge. * BSGs thus far have all been in the mid-200s. Will need tight control in the setting of infection. * Will utilize SQ basal/bolus insulin as an inpatient, based on insulin calculator estimates. 04/04: * Patient received 108 units of insulin yesterday * BSGs have started to improve today but remain elevated. Difficult to assess pre-lunch BSG as AM Novolog given at 1000. * Will not plan to adjust basal since fasting has started to improve. Prandial coverage could be tightened to match basal requirements. 04/05: * Patient received 111 units of insulin yesterday, 64 units basal. * Fasting blood sugar 185mg/dl this morning, increase basal slightly. No further changes needed at this time, CF/CR tightened yesterday. PLAN FOR INPATIENT GLYCEMIC CONTROL: * Hold outpatient oral diabetes medications * Basal insulin - increase * Lantus 25-35 units SQ BID per ordered scale * Bolus insulin * NovoLog per scale ACHS or Q6hrs while NPO * Goal Range: Low 100 mg/dL - High 140 mg/dL * Correction Factor: 15 mg/dL/unit * Nutritional / Prandial insulin per carb ratio of 1 unit per 5 grams CHO consumed PLAN FOR DISCHARGE: * A1c 10.4% on 04/03/20 * Goal A1c < 7% for patient's age/comorbidities * CDE spoke with patient today. Trulicity and Jardiance were just initiated 2 weeks ago so we are likely not seeing the full effects of these. Patient willing to start metformin, which is recommended as first line. * Metformin should be started at the time type 2 diabetes is diagnosed unless there are contraindications. Metformin is effective and safe, is inexpensive, and may reduce risk of cardiovascular events and . * B12 supplementation may be necessary with residential metformin use * FDA has revised the label for metformin to reflect its safety in patients with eGFR 30 mL/min or above * Recommend starting: Metformin XR 500mg PO daily with evening meal. Typically the XR formulation of metformin is better tolerated than the immediate release formulation. Continue to titrate metformin dosing upwards as recommended. Dosage increases should be made in increments of 500 mg weekly, up to 2,000 mg/day PO, given in divided doses. Doses above 2000 mg/day may be better tolerated if divided and given 3 times per day with meals. Max: 2,550 mg/day PO, in divided doses * If plan is to add basal insulin on discharge, would initiate slow as patient is hesitant to start this. Suggest starting with Lantus/Basaglar 25 units qHS.
--- NOTE | 2020-04-05 13:47 | Discharge Summary ---
Date of Service April 05, 2020 Admission HPI Per Admitting Provider Patient is a morbidly obese 54 yo male with history of hypopituitarism, dyslipidemia, DM Type 2, SIDRA noncompliant on BiPAP, Hypoventilation associated with obesity, Venous stasis B/L LE, HTN, Chronic diastolic HF, lymphedema B/L LE, and recurrent cellulitis of the B/L LE who presented to the ED today at the recommendation of his PCP, Dr. Roy for concern of B/L lower extremity cellulitis and worsening fatigue. The patient has had recurrent cellulitis of the B/L LE with lymphedema and venous stasis changes. He stepped on a nail over the weekend, and from that point on, he started to notice increasing erythema a nd edema in the RLE along with increasing fatigue. He has noted some dizziness as well and posterior headache today. He has had some nausea and chills today as well. No vision changes, hearing change, dysphagia, chest pain, abdominal pain, vomiting, diarrhea, urinary symptoms. He does have edema in his legs chronically. Slightly worse over the last few days. Appetite slightly decreased today. He does have sleep apnea and is supposed to be on BiPAP, but he does not use this regularly. He does take naps throughout the day according to his regularly, but he has been increasingly tired since the weekend. He was falling asleep at his outpatient visit today. The patient was placed on 3 L nasal cannula while in the ED. SaO2 holding in the low 90s. CRP elevated to 6.96. WBC count elevated at 15 with left shift. CXR showed interstitial prominence but no acute findings. X-Rays of the right lower extremity showed some superior pretibial edema & osteoarthritic changes but no acute process noted. Venous Doppler RLE technically limited study due to body habitus but no obvious DVT. Patient is currently not in any pain. He does feel dizzy & has mild SOB. Last TDAP 02/08/16. Admission Exam Per Admitting Provider Constitutional: + morbidly obese; no acute distress Eyes: PERRL, conjunctivae normal, anicteric sclerae ENMT: external ear and nose normal, oropharynx normal Neck: trachea midline, no thyromegaly Respiratory: normal respiratory effort, lungs clear to auscultation (distant lung sounds due to body habitus) Cardiovascular: RRR, no murmur, no edema Gastrointestinal (Abdomen): normal bowel sounds, soft, nontender, no hepatosplenomegaly Musculoskeletal: Lymphedema B/L LE. Skin: Chronic venous stasis dermatitis of the B/L LE. Moderate erythema of the RLE especially the right foot and mild erythema of the LLE. Warmth noted to both LE. No wounds Neurologic: PERRL, EOMI, accommodation nl, no face palsy, no dysarthria CN's II-XI intact bilaterally Psychiatric: Affect: euthymic affect Groggy Principal Diagnosis Right leg cellulitis Poorly controlled diabetes mellitus Morbid obesity Obstructive sleep apnea Discharge Exam Constitutional + morbidly obese Eyes PERRL, conjunctivae normal, anicteric sclerae ENMT external ear and nose normal, oropharynx normal Respiratory normal respiratory effort, lungs clear to auscultation Cardiovascular Rate/Rhythm: regular rate and regular rhythm Gastrointestinal (Abdomen) normal bowel sounds, soft, nontender, no hepatosplenomegaly Musculoskeletal Right leg erythema and tenderness Has chronic bilateral venous dermatitis stasis changes Bilateral leg edema Neurologic PERRL, EOMI, accommodation nl, no face palsy, no dysarthria Psychiatric A+Ox3, euthymic affect Discharge Data Allergies Allergy/AdvReac Type Severity Reaction Status Date / Time vancomycin Allergy Intermediate Hives Verified 08/16/19 14:08 hydrocodone [From Vicodin] Allergy Mild Rash Verified 08/16/19 14:08 Consultations 04/02/20 19:24 ED Decision to Admit Stat 04/02/20 22:52 Consult Case Management - Discharge Planning Routine Ordered Studies 04/02/20 16:06 US venous doppler LE RT Stat 1. No evidence of right lower extremity DVT 2. Technically limited study secondary to the patient's large body habitus 04/02/20 21:47 CT angio head w con Stat Normal study. CT angio neck with con Stat No evidence of hemodynamically significant carotid or vertebral artery stenosis. No evidence of dissection. 04/02/20 22:27 CT head/brain wo con Stat FINDINGS: No intra or extra-axial mass lesions are visualized. There is no CT evidence of acute cortical infarction. There is no evidence of midline shift. There is no acute hemorrhage. No calvarial fractures are visualized. There is a punctate basilar artery calcification There is no evidence of pathologic ventricular dilatation. There is a left maxillary sinus retention cyst. IMPRESSION: No acute intracranial findings 04/02/20 22:52 CT angio chest PE protocol Stat FINDINGS: Dietary Manager topogram: Unremarkable. Pulmonary vasculature: The study is suboptimal for the assessment of the pulmonary vascular tree secondary to timing of the contrast bolus and respiratory motion artifact. Allowing for limited image quality, no central filling defect to suggest pulmonary embolus. Main pulmonary artery enlarged measuring 4 cm in diameter. No flattening of the interventricular septum. No intracardiac filling defect. No reflux of contrast into the hepatic veins. Remaining chest: Soft tissues: Normal thyroid. Severe gynecomastia on the left. Allowing for incomplete visualization of the right nipple, this may be asymmetric. No axillary, supraclavicular, mediastinal, or hilar lymphadenopathy. Normal aorta. Top normal heart size. No pericardial or pleural effusion. Suspected hepatic steatosis. Lungs and airways: No pneumothorax. Central airways patent. Pulmonary arteries are not significantly enlarged relative to adjacent bronchi. No interlobular septal thickening. Respiratory motion artifact mildly degrades evaluation of the lung parenchyma. Allowing for this, minimal dependent changes likely atelectasis. Prominent calcified granuloma in the left upper lobe. No other focal nodule or infiltrate. Musculoskeletal: Mild degenerative changes of the spine. IMPRESSION: 1. Allowing for suboptimal image quality, no evidence of pulmonary embolus. 2. Pulmonary artery hypertension. 3. No other evidence of acute intrathoracic pathology. 4. Severe left gynecomastia 04/02/20 22:52 CT tib/fib LT wo con Stat CT tib/fib RT wo con Stat Hospital Course (1) Cellulitis of leg, right: (2) Recurrent cellulitis: Patient with history of lymphedema and recurrent cellulitis of the B/L LE. He recently stepped on a nail, and he started to have worsening fatigue and erythema/edema of the RLE. Started on Dapto and Cefepime in the ED due to Vanco allergy. Venous Doppler negative for DVT CT of the legs does not show any abscess or osteomyelitis Leukocytosis present on admission resolved Blood cultures were negative Got tetanus vaccine as he reported stepping on nail some days before. No open wound noted. Tetanus Ig not available in pharm Discharged on keflex 500mg q6h to complete therapy (3) Hypoxia: (4) SIDRA treated with BiPAP: (5) Fatigue: Patient is noncompliant with BiPAP. Fatigue felt to be likely multifactorial- sleep related hypoxia, noncompliance, infection CTA Chest negative for PE. Findings also suggestive of pulm hypertension Counselled again on need for adherence to CPAP and weight measures Discussed all this with patient and (6) Diabetes: A1c is 10.4, was 6.4 in 07/2019 Review of [facility] chart notes showed extensive history of poor adherence to meds/therapies I provided extensive counselling regarding need for proper glycemic control Provided diabetes education and resources Educated on insulin use and injection Sent scripts for glucometer strips and lancets. called patient's pharmacy We discussed weight loss measures CM to set up home health services Discontinue jardiance for now. Discharged on lantus 25U HS, metformin XR 500mg daily. Continue trulicity Discussed all this with over the phone. Advised to keep a glucose log. To follow up with PCP within 1-2 weeks Continue other home medications for other medical problems Total Time Total Time Spent Total Time Spent (In Minutes): 50 Total Time Includes: Examination of the Patient, Discharge Planning and Medication Reconciliation Discharge Plan Discharge Items Patient Disposition: Home - Home Health Services Reason For Visit: RLE CELLULITIS Discharge Diagnosis: Right leg cellulitis Poorly controlled diabetes mellitus Morbid obesity Obstructive sleep apnea Activity: Resume your previous activity Non-emergency contact: Primary Care Provider Call non-emergency contact if: you have any medication questions and your symptoms worsen Follow-up/Referrals: Chavo Roy DO [Primary Care Provider] - (Please call your Primary doctor for follow up within 1 week) Diet: Carb Consistent or DM2 and Heart Healthy Addtl Attending Provider Instructions: Mr Sanchez. You came to the hospital on recommendation of your Primary doctor for cellulitis and you also had worsening fatigue. You also reported dizziness and some shortness of breath. You were extensively evaluated with scans which rule out blood clots in your leg s or lungs. Evaluation also noted poorly controlled diabetes mellitus with a hemoglobin A1c of 10.4 You were provided extensive diabetes education and counselling You were started on antibiotic. Please continue this to complete treatment You are being discharged on metformin and insulin (lantus). Please take these as prescribed. Your jardiance is discontinued for now Please ensure adherence to your medications and CPAP. Please ensure follow up with your Primary Doctor for continued management It was a pleasure taking care of you Pending Studies at Discharge: No Stand-Alone Forms: My [facility] CNZZ, Smoking Cessation Medications and DC Order Prescriptions: New Lantus Solostar U-100 Insulin 100 unit/mL (3 mL) insulin pen 25 units SQ HS Qty: 15 RF: 1 metformin 500 mg tablet extended release 24 hr 500 mg PO DAILY Qty: 30 RF: 0 cephalexin [Keflex] 500 mg capsule 500 mg PO Q6H 7 Days Qty: 28 RF: 0 (DME) lancets [OneTouch Delica Lancets] 30 gauge misc See Rx Instructions .ROUTE .MEDSUPPLY Qty: 100 RF: 1 (DME) blood sugar diagnostic [OneTouch Verio] Strip See Rx Instructions .ROUTE .MEDSUPPLY Qty: 100 RF: 1 Continued white petrolatum [Petroleum Jelly] gel 1 applic topical UD RF: 0 Lactobacillus acidophilus 1 billion cell tablet 1 mmu cells PO TID RF: 0 cholecalciferol (vitamin D3) 2,000 unit capsule 2,000 unit PO DAILY RF: 0 fluticasone propionate [Flonase Allergy Relief] 50 mcg/actuation [place],Suspension 2 spray INTRANASAL DAILY 7 Days Qty: 9.9 RF: 0 potassium chloride 20 mEq Tablet Extended Release 20 meq PO HS 30 Days Qty: 30 RF: 0 metolazone 2.5 mg tablet 2.5 mg PO UD RF: 0 Chantix 1 mg tablet 1 mg PO BID RF: 0 Trulicity 0.75 mg/0.5 mL pen injector 0.75 mg SUBCUT WK RF: 0 Spiriva Respimat 18 mcg inhalation DAILY RF: 0 fluticasone propion-salmeterol [Advair Diskus] 250-50 mcg/dose Blister With Device INHALATION BID RF: 0 Androderm 4 mg transdermal RF: 0 atorvastatin 40 mg Tablet 40 mg PO HS RF: 0 sennosides [senna] 8.6 mg Tablet 2 tab PO DAILY PRN (Reason: Constipation) RF: 0 aspirin 81 mg Tablet,Delayed Release (Dr/Ec) 81 mg PO DAILY RF: 0 acetaminophen 500 mg Tablet 500 mg PO Q6H PRN (Reason: Pain) RF: 0 oxycodone-acetaminophen 5-325 mg Tablet 1 tab PO Q6H PRN (Reason: Pain) RF: 0 pantoprazole 40 mg Tablet,Delayed Release (Dr/Ec) 40 mg PO HS RF: 0 albuterol sulfate [Ventolin HFA] 90 mcg/actuation Hfa Aerosol Inhaler 2 puff INHALATION Q4 PRN (Reason: Shortness Of Breath) RF: 0 Discontinued Jardiance 10 mg tablet 10 mg PO DAILY RF: 0 Discharge Orders: Discharge Order (Routine); Ordered 04/05/20 Ordered By: Christiane William/Other Patient Handouts: Diabetes Group Home Complications, Hyperglycemia, Hypoglycemia, Diabetes Treat Severe Foot Infecs, Diabetes Type 2 Medications, Diabetes Healthy Meals, Diabetes Keep Feet Healthy, Diabetes Inspect Feet, Diabetes Exercise Benefits, Diabetes Exercise Get Started, Diabetes Activity Tips, Diabetes Exams Tests, Diabetes Living Life, Diabetes Exercise Plan, Diabetes Learn Serve Portion Size, Diabetes Meal Planning Admission Data Admit Date/Time: 04/02/20 20:45 Attending Provider: Christiane Betancourt I. Admit Provider: Chad Ellis Primary Care Provider: Chavo Roy Other Providers: Hakan Izaguirre ; Chad Ellis Other Interventions: Discharge Summary Assessment (RN) Last Done: 04/05/20 15:17 DC Date/Time DO NOT enter until pt leaves facility: 04/05/20 15:50
== END 2020-04-05 15:50 | disposition home health service (06) | DRG 603 ==
LOC: ED 15:26 → 3E 20:45 → SUATTDRO 20:45 → 3E 22:06

== ENCOUNTER 2020-04-06 21:08 | Inpatient (IN) ==
[2020-04-07] MEDS ORDERED: MoRPHine SULFATE 4 MG/ML 1 ML CARP\\VIAL IV STA (01:25)
[2020-04-07] MEDS ORDERED: ALBUTEROL HFA 8 GM INHALER INH PRN (01:25)
[2020-04-07] MEDS ORDERED: POLYETHYLENE (MIRALAX) 17 GM PACK PO PRN (01:25)
[2020-04-07] MEDS ORDERED: SENNA 8.6 MG TAB PO PRN (01:25)
[2020-04-07] MEDS ORDERED: ACETAMINOPHEN 325 MG TAB PO PRN (01:25)
[2020-04-07] MEDS ORDERED: ONDANSETRON INJ 2 MG/ML 2 ML VIAL IV PRN (01:25)
[2020-04-07] MEDS ORDERED: GLUCOSE 10 TABS/TUBE PO PRN (01:45)
[2020-04-07] MEDS ORDERED: GLUCOSE 40% GEL 15 GM TUBE PO PRN (01:45)
[2020-04-07] MEDS ORDERED: DEXTROSE 50% 50 ML SYRINGE IV PRN (01:45)
[2020-04-07] MEDS ORDERED: PATIENT'S HEIGHT AND/OR WEIGHT NEEDED SCH (01:45)
[2020-04-07] MEDS ORDERED: CARBOHYDRATES FOR HYPOGLYCEMIA PO PRN (01:45)
[2020-04-07] MEDS ORDERED: GLUCAGON FOR INJ 1 MG VIAL SQ PRN (01:45)
[2020-04-07] MEDS: cefTRIAXone SODIUM 2,000 MG in DEXTROSE 5% 50 ML IV SCH (02:01)
[2020-04-07] MEDS ORDERED: INSULIN ASPART 100 UNITS/ML 3 ML PEN SC STA (02:11)
--- NOTE | 2020-04-07 02:38 | History and Physical Report ---
DATE OF ADMISSION: 04/07/2020 CHIEF COMPLAINT: Cellulitis. HISTORY OF PRESENT ILLNESS: This is a 54-year-old male with past medical history significant for morbidly obese, obstructive sleep apnea, noncompliant with BiPAP, hypopituitarism, hyperlipidemia, type 2 diabetes, venous stasis bilateral lower extremity, hypertension, chronic diastolic CHF, chronic bilateral lower extremity lymphedema and recurrent cellulitis of bilateral lower extremity, was recently in the hospital with bilateral lower extremity cellulitis, initially treated with daptomycin and cefepime and discharged on Keflex on 04/05/2020, went to [facility] because of worsening cellulitis and was transferred here for continuity of care. The patient says after going home his home health nurse came and checked on him and felt his cellulitis is getting worse and advised him to go to the ER. Denies any fever, chills. He has chronic back pain, knee pains. Has some mild headache. He says he is developing some cough, sometimes brings some phlegm. Denies any fever, chills, has some shortness of breath, no chest pain. No headache. Today, he was slightly dizzy when he woke up suddenly. No blurred visions. No sore throat, no difficulty swallowing. Appetite is okay. Ambulates with help of wheeled walker. Lives with his . Normal bowel and bladder movements. ALLERGIES: VANCOMYCIN, VICODIN. PAST MEDICAL HISTORY: As mentioned above. PAST SURGICAL HISTORY: Colonoscopy, injection of lumbosacral spine. MEDICATIONS: The patient was discharged on Lantus 25 units at bedtime, metformin 500 mg p.o. daily, Keflex 500 mg p.o. q. 6 hours, white petroleum jelly, lactobacillus 1 tablet t.i.d., vitamin D 2000 units p.o. daily, Flonase 2 sprays intranasal daily, potassium chloride 20 mEq p.o. at bedtime, metolazone 2.5 mg as directed, Chantix 1 mg p.o. b.i.d., Trulicity 0.75 mg subcutaneous weekly, Spiriva Respimat 18 mcg inhalation daily, Advair Diskus 250/50 mcg one inhalation b.i.d., Androderm 4 mg transdermal daily, atorvastatin 40 mg p.o. at bedtime, Senokot 2 tablets p.o. daily p.r.n., aspirin 81 mg p.o. daily, Tylenol 500 mg p.o. q. 6 hours p.r.n., Percocet 1 tablet p.o. q. 6 hours p.r.n., Protonix 40 mg p.o. at bedtime, Ventolin 2 puffs inhalation q. 4 hours p.r.n. FAMILY HISTORY: Significant for aunt has diabetes. Father has heart disorder. Paternal grandfather has heart disorder. SOCIAL HISTORY: , smokes one quarter pack a day for last 20 years. No alcohol use, no drug use. REVIEW OF SYMPTOMS: As per HPI. Rest of the systems negative. PHYSICAL EXAMINATION: GENERAL: The patient is morbidly obese, not in acute distress. VITAL SIGNS: Temperature 36.5, pulse 68, respiratory rate 14, blood pressure 118/68, oxygen 93% on room air. HEENT: No pallor, no icterus. Extraocular muscles intact. NECK: Supple. No neck masses. CARDIOVASCULAR: S1, S2, regular rate and rhythm, no murmur, no gallop. RESPIRATORY SYSTEM: Normal AP diameter. No accessory muscle use. No wheezing, no crackles. ABDOMEN: Soft, bowel sounds sluggish, nontender. No distention. CENTRAL NERVOUS SYSTEM: Alert and awake and oriented. Obeys simple commands. Moves extremities. EXTREMITIES: Bilateral lower extremity chronic venous stasis skin changes seen, chronic lymphedema, bilateral lower extremity erythema more on the right leg up to the knees. LABORATORY DATA: Labs done at [facility]: WBC 6.5, hemoglobin 13.6, hematocrit 42.8, platelets 216. Sodium 135, potassium 4.1, chloride 97, bicarbonate 28, BUN 19, creatinine 0.9, serum glucose 310, calcium 9, alkaline phosphatase 114, ALT 21, AST 24, total bilirubin 0.2, lactic acid 1.7. ASSESSMENT AND PLAN: A 54-year-old male with history of recurrent cellulitis who was recently treated for cellulitis with IV antibiotics and discharged on oral antibiotics, comes back with worsening cellulitis. 1. Recurrent cellulitis. recently in the hospital and discharged on 04/05/2020 with p.o. Keflex, comes with worsening cellulitis. We will place him on IV Rocephin and IV doxycycline. Follow the response. Pain control, PT, OT. 2. Morbid obesity, Hx of sleep apnea, noncompliant with BiPAP uses oxygen while sleeping. Needs counseling. 3. Diabetes. Lantus insulin sliding scale. Hold p.o. medication. Follow the blood sugars. 4. Diastolic congestive heart failure Home diuretics.. Monitor for any volume overload. 5. Deep venous thrombosis prophylaxis. Heparin subQ. 6. Disposition: Monitor in medical floor. Expect to discharge home and follow with family doctor. Level 1 full code. PT and OT prior to discharge. Social Service to help with discharge planning. ADRIAN
[2020-04-07] MEDS: ALUMINUM/MAGNESIUM/SIMETH (MAALOX MAX) 30 ML UDC PO PRN ×2 (02:43→22:18)
[2020-04-07] MEDS: DOXYCYCLINE HYCLATE 100 MG in DEXTROSE 5% 100 ML IV SCH ×2 (02:48→14:15)
[2020-04-07] MEDS: HEPARIN SOD 5,000 UNIT/0.5 ML VIAL SQ SCH ×3 (05:50→20:19)
[2020-04-07 07:23] LABS: Basophils # (auto) 0.03 K/uL (0-0.2); Basophils % (auto) 0.5 %; Eosinophils # (auto) 0.19 K/uL (0-0.5); Eosinophils % (auto) 3.2 %; Hematocrit (blood only) 43.9 % (42-52); Immature Granulocytes # (auto) 0.07 K/uL (0.00-0.02); Immature Granulocytes % (auto) 1.2 %; Lymphocytes # (auto) 1.03 K/uL (1.2-3.4); Lymphocytes % (auto) 17.4 %; Mean Corpuscular Hgb Conc 31.9 g/dL (32-36); Mean Platelet Volume 10.8 fL (7.4-10.4); Monocytes # (auto) 0.53 K/uL (0.11-0.59); Neutrophils # (auto) 4.07 K/uL (1.4-6.5); Neutrophils % (auto) 68.7 %; Platelet Count 220 K/uL (130-400); RDW Standard Deviation 51.6 fL (36.4-46.3); Red Blood Count 4.67 M/uL (4.7-6.1); White Blood Count 5.92 K/uL (4.8-10.8)
[2020-04-07 07:53] LABS: BUN Creatinine Ratio 19.7 (10-20); Blood Urea Nitrogen 18 mg/dl (7-18); Calcium 9.2 mg/dl (8.5-10.1); Carbon Dioxide 27 mmol/L (21-32); Chloride 102 mmol/L (98-107); Est GFR (African American) 113.4; Est GFR (Non-African American) 97.9; Glucose 223 mg/dl (70-99); Magnesium 2.2 mg/dl (1.8-2.4); Potassium 3.8 mmol/L (3.5-5.1); Sodium 137 mmol/L (136-145)
[2020-04-07] MEDS: OXYCODONE/ACETAMINOPHEN 5mg/325mg TAB PO PRN ×2 (08:01→18:45)
[2020-04-07] MEDS: UMECLIDINIUM BROMIDE 62.5MCG/BLISTER 7 PUFFS/INHALER INH SCH (08:23)
[2020-04-07] MEDS: FLUTICASONE/VILANTEROL 100/25MCG 14 PUFFS/INHALER INH SCH (08:23)
[2020-04-07] MEDS: FLUTICASONE PROPIONATE NA SPR 16 GM BTL SCH (08:24)
[2020-04-07] MEDS: ASPIRIN 81 MG ECTAB PO SCH (08:24)
[2020-04-07] MEDS: CHOLECALCIFEROL 1,000 UNITS 25 MCG TAB PO SCH (08:24)
[2020-04-07] MEDS: LACTOBACILLUS ACIDOPHILUS (FLORANEX) TAB PO SCH ×3 (08:24→20:18)
[2020-04-07] MEDS: INSULIN ASPART 100 UNITS/ML 3 ML PEN SC SCH ×4 (08:29→20:20)
[2020-04-07] MEDS ORDERED: PHARMACY GLYCEMIC MGMT CONSULT PRN (10:52)
[2020-04-07] MEDS ORDERED: INSULIN GLARGINE SOLOSTAR 100 UNITS/ML 3 ML PEN SC ONE (11:00)
--- NOTE | 2020-04-07 12:21 | Hospitalist Progress Note ---
Date of Service April 07, 2020 Assessment & Plan (1) Cellulitis of leg, right: Discharge 2 days ago on p.o. Keflex. Erythema and pain worsened since No sign of systemic infection Spoke with RN. Pancho erythematous region. Elevate legs Continue ceftriaxone and doxycycline (2) SIDRA treated with BiPAP: Continue CPAP HS (3) Diabetes: Hold oral antiglycemics Pharm for glycemic control Continue DM control as recently started on insulin Continue insulin regimen and monitor glycemic control (4) Morbid obesity: Patient will benefit from weight loss (5) Chronic diastolic heart failure: continue home diuretics Heart healthy diet with fluid restriction (6) DVT prophylaxis: hep sq Admission and Anticipated Discharge Date Admission Date: April 06, 2020 Subjective Patient seen and examined. Reports increased right leg redness and swelling Also reports leg pain Reports adherence with meds since discharge Denies any fevers, chills, nausea vomiting Denies any cough, chest pain, shortness of breath Physical Exam Constitutional: + morbidly obese Eyes: PERRL, conjunctivae normal, anicteric sclerae ENMT: external ear and nose normal, oropharynx normal Respiratory: normal respiratory effort, lungs clear to auscultation Cardiovascular: Rate/Rhythm: regular rate and regular rhythm S1-S2 Bilateral leg edema Gastrointestinal (Abdomen): normal bowel sounds, soft, nontender, no hepatosplenomegaly Musculoskeletal: Chronic venous stasis dermatitis of the B/L LE. Moderate erythema of the RLE worse than on discharge. No wounds open wounds Neurologic: PERRL, EOMI, accommodation nl, no face palsy, no dysarthria Psychiatric: A+Ox3, euthymic affect Results & Data Results & Data ([facility]) Vital Signs (Past 12 Hours) Vital Signs Temp Pulse Resp BP Pulse Ox 04/07/20 07:45 36.4 C L 66 22 128/72 91 Laboratory Results Short CBC 04/07/20 Range/Units 07:04 WBC 5.92 (4.8-10.8) K/uL Hgb 14.0 (14.0-18.0) g/dL Hct 43.9 (42-52) % Plt Count 220 (130-400) K/uL BMP 04/07/20 07:04 Sodium 137 Potassium 3.8 Chloride 102 Carbon Dioxide 27 BUN 18 Creatinine 0.90 Glucose 223 H Calcium 9.2
--- NOTE | 2020-04-07 14:06 | Pharmacy Report ---
Glycemic Control Consultation - Date of Service April 07, 2020 - Scope Scope: Glycemic Pharmacist consulted for glycemic control and to write orders per [facility] inpatient glycemic control protocol. - Objective Weight: 206.4 kg Accuchecks BSG (last 24hrs): Laboratory Data (last 24hrs): - Recent Pertinent Medications Outpatient Anti-diabetic Regimen: * Insulin glargine 25 units SC HS * Metformin 500 mg PO daily * Trulicity 0.75 mg SC weekly * A1c = 10.4 % (04/03/20) The patient is currently receiving: Risk Factors for Insulin Resistance: * Infection: ceftriaxone + doxycycline * Diet: T2DM - Assessment & Plan Assessment & Plan: ASSESSMENT: * TC is a 54 year old male admitted for recurrent cellulitis of bilateral lower extremities * Currently receiving IV ceftriaxone and doxycycline * BSGs elevated so far today (207-252 mg/dL) * Of note, patient weighs 206 kg - will consider this with all weight based dosing of insulin PLAN FOR INPATIENT GLYCEMIC CONTROL: * Holding outpatient oral diabetes medications * Basal insulin * Lantus 25 units x 1 given at lunchtime (time of pharmacy consult) * Will utilize Lantus scale this evening (see EHR for details) * Bolus insulin * NovoLog per scale ACHS or Q6hrs while NPO * Goal Range: Low 110 mg/dL - High 140 mg/dL * Correction Factor: 20 mg/dL/unit * Nutritional / Prandial insulin per carb ratio of 1 unit per 7 grams CHO consumed * 0200 check x 1 with same parameters * Please note that the plan above was derived based on current level of insulin resistance and hospital stress. These recommendations are appropriate for inpatient admission only. Plan of care upon discharge will need to be reassessed to avoid potential outpatient hypo/hyperglycemia. Thank you.
[2020-04-07] MEDS: PANTOprazole 40 MG TAB PO SCH (20:18)
[2020-04-07] MEDS: ATORVASTATIN 40 MG TAB PO SCH (20:19)
[2020-04-07] MEDS ORDERED: INSULIN GLARGINE SOLOSTAR 100 UNITS/ML 3 ML PEN SQ SCH ×2 (21:00)
[2020-04-07] MEDS: DICLOFENAC SOD 1% GEL 100 GM TUBE EXT SCH (22:14)
[2020-04-08] MEDS: cefTRIAXone SODIUM 2,000 MG in DEXTROSE 5% 50 ML IV SCH (01:51)
[2020-04-08] MEDS ORDERED: INSULIN ASPART 100 UNITS/ML 3 ML PEN SC SCH (02:00)
[2020-04-08] MEDS: DOXYCYCLINE HYCLATE 100 MG in DEXTROSE 5% 100 ML IV SCH ×2 (02:34→13:47)
[2020-04-08] MEDS: HEPARIN SOD 5,000 UNIT/0.5 ML VIAL SQ SCH ×3 (06:00→20:35)
[2020-04-08 06:41] LABS: Hematocrit (blood only) 41.1 % (42-52); Hemoglobin 13.3 g/dL (14.0-18.0); Mean Corpuscular Hemoglobin 30.6 pg (25-34); Mean Corpuscular Hgb Conc 32.4 g/dL (32-36); Mean Corpuscular Volume 94.7 fL (80-100); Mean Platelet Volume 10.5 fL (7.4-10.4); Platelet Count 210 K/uL (130-400); RDW Coefficient of Variation 14.8 % (11.5-14.5); RDW Standard Deviation 51.5 fL (36.4-46.3); Red Blood Count 4.34 M/uL (4.7-6.1); White Blood Count 7.45 K/uL (4.8-10.8)
[2020-04-08 06:58] LABS: BUN Creatinine Ratio 15.5 (10-20); Calcium 9.1 mg/dl (8.5-10.1); Creatinine Clr Calc Pharmacy 194.8 ml/min; Est GFR (African American) 118.4; Est GFR (Non-African American) 102.2; Potassium 4.2 mmol/L (3.5-5.1)
[2020-04-08] MEDS: CHOLECALCIFEROL 1,000 UNITS 25 MCG TAB PO SCH (08:15)
[2020-04-08] MEDS: LACTOBACILLUS ACIDOPHILUS (FLORANEX) TAB PO SCH ×3 (08:15→20:37)
[2020-04-08] MEDS: ASPIRIN 81 MG ECTAB PO SCH (08:16)
[2020-04-08] MEDS: FLUTICASONE/VILANTEROL 100/25MCG 14 PUFFS/INHALER INH SCH (08:17)
[2020-04-08] MEDS: UMECLIDINIUM BROMIDE 62.5MCG/BLISTER 7 PUFFS/INHALER INH SCH (08:17)
[2020-04-08] MEDS: FLUTICASONE PROPIONATE NA SPR 16 GM BTL SCH (08:17)
[2020-04-08] MEDS: INSULIN ASPART 100 UNITS/ML 3 ML PEN SC SCH ×5 (08:18→20:38)
[2020-04-08] MEDS: DICLOFENAC SOD 1% GEL 100 GM TUBE EXT SCH ×2 (08:19→21:08)
--- NOTE | 2020-04-08 08:49 | Pharmacy Report ---
Pharmacy Glycemic Short Note 2 - Date of Service April 08, 2020 - Glycemic Short BSG Results (Last 24 hours): OUTPATIENT ANTIDIABETIC REGIMEN: * Insulin glargine 25 units SC HS * Metformin 500 mg PO daily * Trulicity 0.75 mg SC weekly * A1c = 10.4 % (04/03/20) ASSESSMENT: * Continues on ceftriaxone and doxycycline for cellulitis * Fasting BSG of 178 mg/dL this morning - increased Lantus this morning with scale this evening PLAN FOR INPATIENT GLYCEMIC CONTROL: * Hold outpatient oral diabetes medications * Basal insulin - increase * Lantus 30 units SQ this morning * Lantus scale starting this evening to give up to 30 more units of Lantus (see EHR for details) * Bolus insulin - continue * NovoLog per scale ACHS or Q6hrs while NPO * Goal Range: Low 110 mg/dL - High 140 mg/dL * Correction Factor: 20 mg/dL/unit * Nutritional / Prandial insulin per carb ratio of 1 unit per 7 grams CHO consumed PLAN FOR DISCHARGE: * Insulin needs to be determined - will most likely require change to current outpatient regimen on discharge based on A1c of 10.4% * Patient's metformin should be titrated upwards as recommended. Dosage increases should be made in increments of 500 mg weekly, up to 2,000 mg/day PO, given in divided doses. Doses above 2000 mg/day may be better tolerated if divided and given 3 times per day with meals. Max: 2,550 mg/day PO, in divided doses * Could consider XR formulation if tolerability is a concern * Support Patient Self-Management * Healthy Lifestyle (diet, exercise, and smoking cessation) * Disease self-management (SMBG) * Prevention of complications (BP, Lipid goals, Immunizations) * Consider outpatient Diabetes Self-Management Education & Support
[2020-04-08] MEDS ORDERED: metOLazone 2.5 MG TABLET PO SCH (09:00)
[2020-04-08] MEDS ORDERED: INSULIN GLARGINE SOLOSTAR 100 UNITS/ML 3 ML PEN SC SCH ×2 (09:00→21:00)
[2020-04-08] MEDS: TORSEMIDE 10 MG TAB PO SCH ×3 (09:38→20:36)
--- NOTE | 2020-04-08 09:50 | Hospitalist Progress Note ---
Date of Service April 08, 2020 Assessment & Plan (1) Cellulitis of leg, right: Discharge 3 days ago on p.o. Keflex. Erythema and pain worsened since No sign of systemic infection Elevate legs Continue ceftriaxone and doxycycline (2) SIDRA treated with BiPAP: Patient refused to wear CPAP overnight Counselled patient again about this and encouraged him to use the BIPAP (3) Diabetes: Hold oral antiglycemics Pharm for glycemic control Continue DM control as recently started on insulin Continue insulin regimen and monitor glycemic control (4) Morbid obesity: Patient will benefit from weight loss (5) Chronic diastolic heart failure: Patient does not remember his current home meds, diuretics/doses Patient has had changes in meds over the past weeks Reviewed [facility] and also obtained current med list from patient's case management assistant Home torsemide and aldactone resumed. Added to med list Monitor weight and fluid status. (6) DVT prophylaxis: hep sq Admission and Anticipated Discharge Date Admission Date: April 06, 2020 Subjective Patient seen and examined. Patient reports mild shortness of breath earlier. Denies any change in chronic cough. Patient reports he feels worsening of his bilateral leg swelling. Still has right leg redness and pain Denies any fevers, chills, nausea vomiting Physical Exam Constitutional: + morbidly obese Eyes: PERRL, conjunctivae normal, anicteric sclerae ENMT: external ear and nose normal, oropharynx normal Respiratory: normal respiratory effort, lungs clear to auscultation Cardiovascular: Rate/Rhythm: regular rate and regular rhythm Gastrointestinal (Abdomen): normal bowel sounds, soft, nontender, no hepatosplenomegaly Skin: Bilateral leg edema Features of chronic stasis dermatitis Right leg erythema and tenderness, not worse from marked section Neurologic: PERRL, EOMI, accommodation nl, no face palsy, no dysarthria Psychiatric: A+Ox3, euthymic affect Results & Data Results & Data ([facility]) Vital Signs (Past 12 Hours) Vital Signs Temp Pulse Resp BP Pulse Ox 04/08/20 07:20 36.5 C 55 L 20 149/87 H 94 04/08/20 01:36 66 20 98 04/07/20 23:43 36.4 C L 63 18 112/78 94 Laboratory Results Short CBC 04/08/20 Range/Units 04:38 WBC 7.45 (4.8-10.8) K/uL Hgb 13.3 L (14.0-18.0) g/dL Hct 41.1 L (42-52) % Plt Count 210 (130-400) K/uL BMP 04/08/20 06:20 Sodium 137 Potassium 4.2 Chloride 103 Carbon Dioxide 28 BUN 13 Creatinine 0.81 Glucose 185 H Calcium 9.1
[2020-04-08] MEDS: SPIRONOLACTONE 25 MG TAB PO SCH ×2 (10:21→20:39)
[2020-04-08] MEDS: OXYCODONE/ACETAMINOPHEN 5mg/325mg TAB PO PRN ×2 (10:24→16:16)
[2020-04-08] MEDS: PANTOprazole 40 MG TAB PO SCH (20:36)
[2020-04-08] MEDS: ATORVASTATIN 40 MG TAB PO SCH (20:37)
[2020-04-09] MEDS: cefTRIAXone SODIUM 2,000 MG in DEXTROSE 5% 50 ML IV SCH (02:04)
[2020-04-09] MEDS: DOXYCYCLINE HYCLATE 100 MG in DEXTROSE 5% 100 ML IV SCH ×2 (02:50→14:15)
[2020-04-09] MEDS: OXYCODONE/ACETAMINOPHEN 5mg/325mg TAB PO PRN ×2 (02:59→14:32)
[2020-04-09] MEDS: HEPARIN SOD 5,000 UNIT/0.5 ML VIAL SQ SCH ×3 (06:13→20:50)
[2020-04-09 07:38] LABS: Hematocrit (blood only) 44.8 % (42-52); Hemoglobin 15.1 g/dL (14.0-18.0); Mean Corpuscular Hemoglobin 31.5 pg (25-34); Mean Corpuscular Hgb Conc 33.7 g/dL (32-36); Mean Corpuscular Volume 93.5 fL (80-100); Mean Platelet Volume 10.5 fL (7.4-10.4); Platelet Count 236 K/uL (130-400); RDW Coefficient of Variation 14.5 % (11.5-14.5); RDW Standard Deviation 49.1 fL (36.4-46.3); Red Blood Count 4.79 M/uL (4.7-6.1); White Blood Count 7.92 K/uL (4.8-10.8)
[2020-04-09] MEDS: CHOLECALCIFEROL 1,000 UNITS 25 MCG TAB PO SCH (08:03)
[2020-04-09] MEDS: SPIRONOLACTONE 25 MG TAB PO SCH ×2 (08:03→20:51)
[2020-04-09] MEDS: ASPIRIN 81 MG ECTAB PO SCH (08:03)
[2020-04-09] MEDS: LACTOBACILLUS ACIDOPHILUS (FLORANEX) TAB PO SCH ×3 (08:05→20:50)
[2020-04-09] MEDS: metOLazone 2.5 MG TABLET PO SCH (08:05)
[2020-04-09] MEDS: TORSEMIDE 10 MG TAB PO SCH ×3 (08:06→20:50)
[2020-04-09] MEDS: FLUTICASONE/VILANTEROL 100/25MCG 14 PUFFS/INHALER INH SCH (08:07)
[2020-04-09] MEDS: FLUTICASONE PROPIONATE NA SPR 16 GM BTL SCH (08:07)
[2020-04-09] MEDS: UMECLIDINIUM BROMIDE 62.5MCG/BLISTER 7 PUFFS/INHALER INH SCH (08:08)
[2020-04-09] MEDS: DICLOFENAC SOD 1% GEL 100 GM TUBE EXT SCH ×2 (08:08→20:49)
[2020-04-09 08:09] LABS: BUN Creatinine Ratio 16.5 (10-20); Calcium 9.7 mg/dl (8.5-10.1); Creatinine Clr Calc Pharmacy 147.5 ml/min; Est GFR (Non-African American) 79.4; Magnesium 1.6 mg/dl (1.8-2.4); Phosphorus 5.6 mg/dl (2.5-4.9); Potassium 3.3 mmol/L (3.5-5.1)
[2020-04-09] MEDS: INSULIN GLARGINE SOLOSTAR 100 UNITS/ML 3 ML PEN SC SCH ×2 (08:10→20:49)
[2020-04-09] MEDS: INSULIN ASPART 100 UNITS/ML 3 ML PEN SC SCH ×4 (08:12→20:47)
--- NOTE | 2020-04-09 08:59 | Pharmacy Report ---
Pharmacy Glycemic Short Note 2 - Date of Service April 09, 2020 - Glycemic Short BSG Results (Last 24 hours): OUTPATIENT ANTIDIABETIC REGIMEN: * Insulin glargine 25 units SC HS * Metformin 500 mg PO daily * Trulicity 0.75 mg SC weekly * A1c = 10.4 % (04/03/20) ASSESSMENT: * Continues on ceftriaxone and doxycycline for cellulitis * Fasting BSG still elevated this morning - will increase Lantus slightly * BSGs ranging 184-188 mg/dL over past 24 hours - will tighten Novolog parameters this morning PLAN FOR INPATIENT GLYCEMIC CONTROL: * Hold outpatient oral diabetes medications * Basal insulin - increase * Lantus 35 units SQ BID * Bolus insulin - tighten * NovoLog per scale ACHS or Q6hrs while NPO * Goal Range: Low 110 mg/dL - High 140 mg/dL * Correction Factor: 15 mg/dL/unit * Nutritional / Prandial insulin per carb ratio of 1 unit per 5 grams CHO consumed PLAN FOR DISCHARGE: * Will most likely require change to current outpatient regimen on discharge based on A1c of 10.4% * Insulin needs to be determined * Recommend prompt outpatient follow-up for further diabetes management * Patient's metformin should be titrated upwards as recommended. Dosage increases should be made in increments of 500 mg weekly, up to 2,000 mg/day PO, given in divided doses. Doses above 2000 mg/day may be better tolerated if divided and given 3 times per day with meals. Max: 2,550 mg/day PO, in divided doses * Could consider XR formulation if tolerability is a concern * Support Patient Self-Management * Healthy Lifestyle (diet, exercise, and smoking cessation) * Disease self-management (SMBG) * Prevention of complications (BP, Lipid goals, Immunizations) * Consider outpatient Diabetes Self-Management Education & Support
[2020-04-09] MEDS ORDERED: metOLazone 2.5 MG TABLET PO SCH (09:00)
[2020-04-09] MEDS ORDERED: POTASSIUM CHLORIDE 20 MEQ TABCR PO STA (10:42)
[2020-04-09] MEDS ORDERED: MAGNESIUM SULFATE / D5W 1 GM/100 ML BAG IV ONE (10:45)
--- NOTE | 2020-04-09 20:06 | Hospitalist Progress Note ---
Date of Service April 09, 2020 Assessment & Plan (1) Cellulitis of leg, right: Failed outpatient p.o. Keflex. No signs of sepsis Continue ceftriaxone and doxycycline (2) SIDRA treated with BiPAP: Patient refused to wear CPAP overnight Counselled patient again about this and encouraged him to use the BIPAP (3) Diabetes: Hold oral antiglycemics Pharm for glycemic control Continue DM control as recently started on insulin Continue insulin regimen and monitor glycemic control (4) Morbid obesity: BMI:61 Patient will benefit from weight loss (5) Chronic diastolic heart failure: Patient does not remember his current home meds, diuretics/doses Patient has had changes in meds over the past weeks Continue Torsemide, aldactone resumed. Monitor weight and volume status. (6) DVT prophylaxis: heparin SQ Admission and Anticipated Discharge Date Admission Date: April 06, 2020 Subjective Patient is seen and examined at bedside Complains of leg pain Denies any chest pain, shortness of breath, dizziness, nausea, abdominal pain Offers no other complaints Eager to get discharged Review of Systems Review of Systems: All systems reviewed & are unremarkable except as noted in HPI & below Physical Exam Physical Exam: Physical Exam: Vitals signs as noted above General Appearance:Morbidly obese, no apparent distress Head: normocephalic, Atraumatic Eyes: normal inspection, EOMI Neck: supple, Trachea midline Respiratory/Chest: Normal breath sounds, CTA, No accessory muscle use Cardiovascular: S1, S2, No murmur Abdomen/GI:Soft, Non tender, Bowel sounds present Extremities/Musculoskelatal:normal inspection, B/L LE lymphedema, erythema Neurologic/Psych:AAOX3, grossly no focal neurological deficits Skin: normal color, warm Results & Data Results & Data ([facility] [place]) Vital Signs (Past 12 Hours) Vital Signs Temp Pulse Resp BP Pulse Ox 04/09/20 15:09 36.6 C 79 20 136/81 94 Laboratory Results Short CBC 04/09/20 Range/Units 07:13 WBC 7.92 (4.8-10.8) K/uL Hgb 15.1 (14.0-18.0) g/dL Hct 44.8 (42-52) % Plt Count 236 (130-400) K/uL BMP 04/09/20 07:13 Sodium 136 Potassium 3.3 L D Chloride 94 L Carbon Dioxide 33 H BUN 18 Creatinine 1.07 Glucose 177 H Calcium 9.7
[2020-04-09] MEDS: PANTOprazole 40 MG TAB PO SCH (20:50)
[2020-04-09] MEDS: ATORVASTATIN 40 MG TAB PO SCH (20:50)
[2020-04-10] MEDS: OXYCODONE/ACETAMINOPHEN 5mg/325mg TAB PO PRN ×2 (00:21→10:53)
[2020-04-10] MEDS: ALUMINUM/MAGNESIUM/SIMETH (MAALOX MAX) 30 ML UDC PO PRN (00:21)
[2020-04-10] MEDS: cefTRIAXone SODIUM 2,000 MG in DEXTROSE 5% 50 ML IV SCH (01:44)
[2020-04-10] MEDS: DOXYCYCLINE HYCLATE 100 MG in DEXTROSE 5% 100 ML IV SCH (01:45)
[2020-04-10] MEDS: HEPARIN SOD 5,000 UNIT/0.5 ML VIAL SQ SCH ×2 (05:07→12:28)
[2020-04-10] MEDS: SPIRONOLACTONE 25 MG TAB PO SCH (08:08)
[2020-04-10] MEDS: TORSEMIDE 10 MG TAB PO SCH ×2 (08:09→12:27)
[2020-04-10] MEDS: LACTOBACILLUS ACIDOPHILUS (FLORANEX) TAB PO SCH ×2 (08:10→12:28)
[2020-04-10] MEDS: CHOLECALCIFEROL 1,000 UNITS 25 MCG TAB PO SCH (08:10)
[2020-04-10] MEDS: ASPIRIN 81 MG ECTAB PO SCH (08:10)
[2020-04-10] MEDS: metOLazone 2.5 MG TABLET PO SCH (08:11)
[2020-04-10] MEDS: DICLOFENAC SOD 1% GEL 100 GM TUBE EXT SCH (08:11)
[2020-04-10] MEDS: FLUTICASONE/VILANTEROL 100/25MCG 14 PUFFS/INHALER INH SCH (08:11)
[2020-04-10] MEDS: FLUTICASONE PROPIONATE NA SPR 16 GM BTL SCH (08:12)
[2020-04-10] MEDS: UMECLIDINIUM BROMIDE 62.5MCG/BLISTER 7 PUFFS/INHALER INH SCH (08:12)
[2020-04-10 08:13] LABS: BUN Creatinine Ratio 20.1 (10-20); Calcium 9.7 mg/dl (8.5-10.1); Est GFR (African American) 74.1; Est GFR (Non-African American) 63.9; Magnesium 2.1 mg/dl (1.8-2.4); Potassium 3.1 mmol/L (3.5-5.1)
[2020-04-10] MEDS: INSULIN ASPART 100 UNITS/ML 3 ML PEN SC SCH ×2 (08:19→12:27)
[2020-04-10] MEDS ORDERED: INSULIN GLARGINE SOLOSTAR 100 UNITS/ML 3 ML PEN SC SCH (09:00)
[2020-04-10] MEDS ORDERED: POTASSIUM CHLORIDE 20 MEQ TABCR PO STA (09:27)
[2020-04-10] MEDS: POTASSIUM CHLORIDE / WTR 10 MEQ/100 ML PLCT IV SCH ×2 (09:52→10:48)
--- NOTE | 2020-04-10 11:57 | Pharmacy Report ---
Pharmacy Glycemic Short Note 2 - Date of Service April 10, 2020 - Glycemic Short BSG Results (Last 24 hours): 04/09/20 04/09/20 04/10/20 16:25 20:30 07:27 Glucose 188 H POC Glucose 153 H 249 H 04/10/20 04/10/20 07:33 11:37 Glucose POC Glucose 192 H 210 H OUTPATIENT ANTIDIABETIC REGIMEN: * Insulin glargine 25 units SC HS - just started on 04/05 * Metformin 500 mg PO daily - just started on 04/05 * Trulicity 0.75 mg SC weekly * Jardiance 10 mg daily * A1c = 10.4 % (04/03/20) INPATIENT GLYCEMIC REGIMEN AND CAUSES OF INSULIN RESISTANCE: ASSESSMENT: 04/10 * Mr. Sanchez received 118 units of insulin yesterday * Fasting BSG remains elevated -> increase Lantus further * Postprandial BSGs elevated -> will tighten Novolog parameters 04/09 * Continues on ceftriaxone and doxycycline for cellulitis * Fasting BSG still elevated this morning - will increase Lantus slightly * BSGs ranging 184-188 mg/dL over past 24 hours - will tighten Novolog parameters this morning PLAN FOR INPATIENT GLYCEMIC CONTROL: * Hold outpatient oral diabetes medications * Basal insulin - increase by ~20% * Lantus 40 units SQ BID * Bolus insulin - tighten CF/CR * NovoLog per scale ACHS or Q6hrs while NPO * Goal Range: Low 110 mg/dL - High 140 mg/dL * Correction Factor: 10 mg/dL/unit * Nutritional / Prandial insulin per carb ratio of 1 unit per 4 grams CHO consumed PLAN FOR DISCHARGE: * Will most likely require change to current outpatient regimen on discharge based on A1c of 10.4% * Insulin needs to be determined -> consider increasing to 40 units daily * Recommend prompt outpatient follow-up for further diabetes management * Patient's metformin should be titrated upwards as recommended. Dosage increases should be made in increments of 500 mg weekly, up to 2,000 mg/day PO, given in divided doses. Doses above 2000 mg/day may be better tolerated if divided and given 3 times per day with meals. Max: 2,550 mg/day PO, in divided doses * Could consider XR formulation if tolerability is a concern * Support Patient Self-Management * Healthy Lifestyle (diet, exercise, and smoking cessation) * Disease self-management (SMBG) * Prevention of complications (BP, Lipid goals, Immunizations) * Consider outpatient Diabetes Self-Management Education & Support
--- NOTE | 2020-04-10 12:58 | Hospitalist Progress Note ---
Date of Service April 10, 2020 Assessment & Plan (1) Cellulitis of leg, right: Failed outpatient p.o. Keflex. No signs of sepsis Received ceftriaxone and doxycycline while hospitalized Plan to discharge on Omnicef, doxycycline to complete the course (2) SIDRA treated with BiPAP: Patient refused to wear CPAP overnight Counselled patient again about this and encouraged him to use the BIPAP (3) Diabetes: Hold oral antiglycemics Pharm for glycemic control Hb A1C:10.4 Continue DM control as recently started on insulin Continue insulin regimen and monitor glycemic control Will increase Lantus to 40 units daily Needs titration of metformin as outpatient Hypokalemia Likely due to diuretics replace electrolytes as needed (4) Morbid obesity: BMI:61 Patient will benefit from weight loss (5) Chronic diastolic heart failure: Patient does not remember his current home meds, diuretics/doses Patient has had changes in meds over the past weeks Continue Torsemide, aldactone resumed. Monitor weight and volume status. (6) DVT prophylaxis: heparin SQ Admission and Anticipated Discharge Date Admission Date: April 06, 2020 Subjective Patient is seen and examined at bedside leg pain/erythema improved No new complaints Denies any chest pain, shortness of breath, dizziness, nausea, abdominal pain Offers no other complaints Review of Systems Review of Systems: All systems reviewed & are unremarkable except as noted in HPI & below Physical Exam Physical Exam: Physical Exam: Vitals signs as noted above General Appearance:Morbidly obese, no apparent distress Head: normocephalic, Atraumatic Eyes: normal inspection, EOMI Neck: supple, Trachea midline Respiratory/Chest: Normal breath sounds, CTA, No accessory muscle use Cardiovascular: S1, S2, No murmur Abdomen/GI:Soft, Non tender, Bowel sounds present Extremities/Musculoskelatal:normal inspection, B/L LE lymphedema, erythema Neurologic/Psych:AAOX3, grossly no focal neurological deficits Skin: normal color, warm Results & Data Results & Data ([facility]) Vital Signs (Past 12 Hours) Vital Signs Temp Pulse Resp BP BP Pulse Ox 04/10/20 12:47 36.6 C 83 16 149/87 H 93 04/10/20 07:06 36.6 C 83 16 179/76 H 93 Laboratory Results [facility] 04/10/20 07:27 Sodium 134 L Potassium 3.1 L Chloride 89 L Carbon Dioxide 36 H BUN 26 H Creatinine 1.28 Glucose 188 H Calcium 9.7
--- NOTE | 2020-04-10 13:20 | Discharge Summary ---
Date of Service April 10, 2020 Admission HPI Per Admitting Provider CHIEF COMPLAINT: Cellulitis. HISTORY OF PRESENT ILLNESS: This is a 54-year-old male with past medical history significant for morbidly obese, obstructive sleep apnea, noncompliant with BiPAP, hypopituitarism, hyperlipidemia, type 2 diabetes, venous stasis bilateral lower extremity, hypertension, chronic diastolic CHF, chronic bilateral lower extremity lymphedema and recurrent cellulitis of bilateral lower extremity, was recently in the hospital with bilateral lower extremity cellulitis, initially treated with daptomycin and cefepime and discharged on Keflex on 04/05/2020, went to [facility] because of worsening cellulitis and was transferred here for continuity of care. The patient says after going home his home health nurse came and checked on him and felt his cellulitis is getting worse and advised him to go to the ER. Denies any fever, chills. He has chronic back pain, knee pains. Has some mild headache. He says he is developing some cough, sometimes brings some phlegm. Denies any fever, chills, has some shortness of breath, no chest pain. No headache. Today, he was slightly dizzy when he woke up suddenly. No blurred visions. No sore throat, no difficulty swallowing. Appetite is okay. Ambulates with help of wheeled walker. Lives with his . Normal bowel and bladder movements. Admission Exam Per Admitting Provider PHYSICAL EXAMINATION: GENERAL: The patient is morbidly obese, not in acute distress. VITAL SIGNS: Temperature 36.5, pulse 68, respiratory rate 14, blood pressure 118/68, oxygen 93% on room air. HEENT: No pallor, no icterus. Extraocular muscles intact. NECK: Supple. No neck masses. CARDIOVASCULAR: S1, S2, regular rate and rhythm, no murmur, no gallop. RESPIRATORY SYSTEM: Normal AP diameter. No accessory muscle use. No wheezing, no crackles. ABDOMEN: Soft, bowel sounds sluggish, nontender. No distention. CENTRAL NERVOUS SYSTEM: Alert and awake and oriented. Obeys simple commands. Moves extremities. EXTREMITIES: Bilateral lower extremity chronic venous stasis skin changes seen, chronic lymphedema, bilateral lower extremity erythema more on the right leg up to the knees. Principal Diagnosis Right leg Cellulitis Hypokalemia Discharge Data Allergies Allergy/AdvReac Type Severity Reaction Status Date / Time vancomycin Allergy Intermediate Hives Verified 08/16/19 14:08 hydrocodone [From Vicodin] Allergy Mild Rash Verified 08/16/19 14:08 Consultations 04/07/20 01:25 Consult Case Management - Discharge Planning Routine Procedures Performed Right Leg CT: 1. No acute bony abnormality is identified. 2. Diffuse soft tissue edema is seen throughout the right lower extremity. This could be related to fluid overload and/or possibly cellulitis. Clinical correlation will be essential. 3. Soft tissue edema is also seen in the partially imaged left lower extremity. 4. No organized fluid collection is seen to suggest abscess. Left Leg CT: 1. No acute fracture, dislocation or osseous erosion to suggest acute osteomyelitis. 2. Tricompartmental osteoarthritis of the knee, severe within the medial and patellofemoral compartments with additional osteoarthritis of the imaged hindfoot. 3. Small knee joint effusion with punctate intra-articular loose bodies. 4. Moderate diffuse subcutaneous edema and skin thickening of the lower leg without drainable fluid collection. Differential considerations would include cellulitis, venous stasis or lymphedema. 5. Moderate sized Valdovinos's cyst. Hospital Course (1) Cellulitis of leg, right: Failed outpatient p.o. Keflex. No signs of sepsis Received ceftriaxone and doxycycline while hospitalized Plan to discharge on Omnicef, doxycycline to complete the course (2) SIDRA treated with BiPAP: Patient refused to wear CPAP overnight Counselled patient again about this and encouraged him to use the BIPAP (3) Diabetes: Hold oral antiglycemics Pharm for glycemic control Hb A1C:10.4 Continue DM control as recently started on insulin Continue insulin regimen and monitor glycemic control Will increase Lantus to 40 units daily Needs titration of metformin as outpatient Hypokalemia Likely due to diuretics replace electrolytes as needed (4) Morbid obesity: BMI:61 Patient will benefit from weight loss (5) Chronic diastolic heart failure: Patient does not remember his current home meds, diuretics/doses Patient has had changes in meds over the past weeks Continue Torsemide, aldactone resumed. Monitor weight and volume status. (6) DVT prophylaxis: heparin SQ Total Time Total Time Spent Total Time Spent (In Minutes): 39 minutes Total Time Includes: Examination of the Patient, Discharge Planning, Medication Reconciliation, Communication With Other Providers and Other Discharge Plan Discharge Items Patient Disposition: Home - Home Health Services Reason For Visit: CELLULITIS Discharge Diagnosis: Right leg Cellulitis Hypokalemia Activity: Per Instructions section Exercise/Sports: Gradually increase as tolerated Non-emergency contact: Primary Care Provider Call non-emergency contact if: you have any medication questions, your symptoms worsen, your pain is not controlled, your pain is worsening, your pain is unusual for you, your pain is concerning for you and you have a fever Follow-up/Referrals: Chavo Roy DO [Primary Care Provider] - 04/17/20 11:20 am (04/17/2020 11:20 AM Provider Ga Quinn MD Department [facility] ) Diet: Carb Consistent or DM2 and Heart Healthy Ambulatory Orders: Basic Metabolic Panel (Routine) Timeframe: 1 Week Location: Determined by Patient Ordered By: Ever Powell Attending Provider Instructions: Follow-up with your primary care physician Dr. Roy on April 17, 2020 at 11:20 AM as scheduled Discuss with your physician for further adjustment of your medications to manage your diabetes. Get Blood test (Basic metabolic panel) in 1 week and follow up with your physician with results Medication Changes: Your Lantus is increased to 40 units daily for better control of your blood sugar levels Started on Cefdinir and Doxycycline--To complete 7 more days of antibiotic course for your cellulitis Started on potassium chloride 20 meq daily for 5 days. Further management based on your blood test results . Seek immediate medical attention if your symptoms reoccur or worsen Pending Studies at Discharge: No Stand-Alone Forms: My [email or web address], Smoking Cessation Medications and DC Order Prescriptions: New doxycycline hyclate 100 mg tablet 100 mg PO BID 7 Days Qty: 14 RF: 0 cefdinir 300 mg capsule 300 mg PO BID 7 Days Qty: 14 RF: 0 Continued white petrolatum [Petroleum Jelly] gel 1 applic topical UD RF: 0 Lactobacillus acidophilus 1 billion cell tablet 1 mmu cells PO TID RF: 0 cholecalciferol (vitamin D3) 2,000 unit capsule 2,000 unit PO DAILY RF: 0 fluticasone propionate [Flonase Allergy Relief] 50 mcg/actuation [place],Suspension 2 spray INTRANASAL DAILY 7 Days Qty: 9.9 RF: 0 metolazone 2.5 mg tablet 2.5 mg PO UD RF: 0 Chantix 1 mg tablet 1 mg PO BID RF: 0 Trulicity 0.75 mg/0.5 mL pen injector 0.75 mg SUBCUT WK RF: 0 Spiriva Respimat 18 mcg inhalation DAILY RF: 0 fluticasone propion-salmeterol [Advair Diskus] 250-50 mcg/dose Blister With Device INHALATION BID RF: 0 Androderm 4 mg transdermal RF: 0 metformin 500 mg tablet extended release 24 hr 500 mg PO DAILY Qty: 30 RF: 0 (DME) lancets [[employer] Delica Lancets] 30 gauge misc See Rx Instructions .ROUTE .MEDSUPPLY Qty: 100 RF: 1 (DME) blood sugar diagnostic [[employer] Verio test strips] Strip See Rx Instructions .ROUTE .MEDSUPPLY Qty: 100 RF: 1 torsemide 20 mg tablet 40 mg PO TID RF: 0 spironolactone 50 mg tablet 50 mg PO BID RF: 0 potassium chloride 20 mEq Tablet Extended Release 20 meq PO HS 5 Days Qty: 5 RF: 0 atorvastatin 40 mg Tablet 40 mg PO HS RF: 0 sennosides [senna] 8.6 mg Tablet 2 tab PO DAILY PRN (Reason: Constipation) RF: 0 aspirin 81 mg Tablet,Delayed Release (Dr/Ec) 81 mg PO DAILY RF: 0 acetaminophen 500 mg Tablet 500 mg PO Q6H PRN (Reason: Pain) RF: 0 oxycodone-acetaminophen 5-325 mg Tablet 1 tab PO Q6H PRN (Reason: Pain) RF: 0 pantoprazole 40 mg Tablet,Delayed Release (Dr/Ec) 40 mg PO HS RF: 0 albuterol sulfate [Ventolin HFA] 90 mcg/actuation Hfa Aerosol Inhaler 2 puff INHALATION Q4 PRN (Reason: Shortness Of Breath) RF: 0 Changed Lantus Solostar U-100 Insulin 100 unit/mL (3 mL) insulin pen 40 units SQ HS Qty: 15 RF: 1 Discontinued cephalexin [Keflex] 500 mg capsule 500 mg PO Q6H 7 Days Qty: 28 RF: 0 Discharge Orders: Discharge Order (Routine); Ordered 04/10/20 Ordered By: Ever William/Other Patient Handouts: Hyperglycemia, Hypoglycemia, Diabetes Resources, Diabetes Healthy Meals, Diabetes Exercise Benefits Admission Data Admit Date/Time: 04/06/20 23:48 Attending Provider: Ever Barakat Admit Provider: Hakan Izaguirre Primary Care Provider: Chavo Roy Other Providers: Hakan Izaguirre ; [facility] Other Interventions: Discharge Summary Assessment (RN) Last Done: 04/10/20 12:47 DC Date/Time DO NOT enter until pt leaves facility: 04/10/20 14:06
== END 2020-04-10 14:06 | disposition home health service (06) | DRG 603 ==
LOC: SUATTDRO 23:48 → 3E 23:48 → 2W 04-07 16:21

== ENCOUNTER 2020-04-21 23:36 | Inpatient (IN) ==
--- NOTE | 2020-04-22 00:01 | Emergency Department Note ---
Impression & Plan Acute diastolic congestive heart failure, Excessive weight gain, Fluid overload, Failure of outpatient treatment, Acute hyperglycemia ED Provider Note Name: TARA THOMASON Age: 54 Sex: M Arrives Via: Walk-In Informant: Patient ED Provider: Mook Aguilar MD Chief Complaint: Weight Gain Impression: Acute Diastolic Congestive Heart Failure Excessive Weight Gain Fluid Overload Acute Hyperglycemia Failure Outpatient treatment Medical Decision Makin yr old medically complex patient with morbid obesity, dmii, heart failure recently discharged from hospital for cellulitis who arrives tonight for worsening weight gain, diffuse body pain, and shortness of breath on exertion. He is already up 26 lbs in weight from just 10 days ago. He is moderately dyspneic and clearly is failing his large dose PO pain meds. CXR with some worsening congestion but no overt pulmonary edema and his o2 sats are OK. Labs OK with mild low mag/phos. Reviewed with hospitalist and given failure outpatient and his rapid weight gain will bring in to hospital for further management. He recently had CTA chest and I do not feel these sympoms are PE related. No clear etiology of diffuse pains though may just be rapid swelling related. No current evidence sepsis noted. Prior Medical Record and Triage/Nursing Notes reviewed by Me Additional history obtained from chart Differentials:Reactive airway disease, pneumonia, pneumothorax, COPD, CHF, infections, cardiac ischemia, pulmonary embolism, musculoskeletal, gastrointestinal, as well as other pathologies. Vital Signs: reviewed and remarkable for HTN Interventions: saline lock, insulin IV, lasix 80mg IV Labs:Reviewed and remarkable for hyperglycemia Imaging:X ray results are stated below per my interpretation: Chest: 1 view: moderate increase congestion from 04/02/20 EKG:Per My Interpretation: Indication Shortness of breath: NSR 77 bpm, qtc 506, RBBB. No Ectopy. No Ischemia. Compared to EKG 04/02/20, no significant changes. Cardiac/Tele Monitoring: Cardiac Monitoring: An Order was placed for continuous cardiac monitoring. The monitor shows a rate of 80 with a normal sinus rhythm. Consults:Dr Zina Grant Hospitalist Plan: Disposition:Hospitalization. Condition: Good Blood pressure:Elevated - Referred to Hospitalist Prescriptions:none PDMP: n.a History of Present Illness:54 / M arrives for evaluation of weight gain. Patient was in hospital 2 weeks ago with discharge 10 days ago for management of his extensive medical issues. He was discharged on 80 mg BID Lasix. Notes that over the last 10 days he has gained 50 pounds. States that just over the last 3 to 4 days he is unable to ambulate without shortness of breath, he notes constant pressure across chest, and feeling like there are electric shocks going through his entire body. He also has worsening with laying flat. Over the last few days also noting that he is starting to weep out of his right leg with increasing fluid blisters. Denies fevers, chills, cough, syncope, headache, neck pain, abdominal pain, nausea, vomiting, back pain (beyond baseline), nor other symptoms. No new medications taken for this. Exertion makes worse, laying flat makes worse, staying still and upright makes SOB better. States he talked to his Front Clerk this afternoon who advised he go to ED for evaluation. ROS: See above HPI for pertinent positives & negatives. A total of 10 systems reviewed and were otherwise negative. Past Medical History:See Below Past Surgical History:See Below Family History:See Below Social History:See Below Home Medications:See Below Allergies:Vanco, Hydrocodon Vitals:Blood Pressure: 140/83, Pulse 80, RR 24, T 36.5C, O2 95% on RA, weight 212.7kg Physical Exam: GENERAL: Patient is severely unwell appearing and in minimal distress. Sitting on edge of bed. Obese. EYES: No scleral icterus, unremarkable pupils. ENT: Mucous membranes moist, no nasal congestion. NECK: No masses appreciated, nomeningismus, trachea is midline. RESPIRATORY: Mild dyspnea. Very distant lung sounds, mild wheeze noted CARDIOVASCULAR: Regular rate and rhythm.No murmurs, rubs, gallops appreciated. GASTROINTESTINAL: Large distended pitting abdomen., non-tender, no peritonitis.Distant bowel sounds positive. BACK: No midline tenderness, no CVA tenderness EXTREMITIES: +4 pitting edema of lower extremities. Normal motion all extremities, no cyanosis NEUROLOGIC: Alert and oriented, no acute motor or sensory deficits, no focal weakness, cranial nerves grossly intact. SKIN: No rash, no jaundice, no diaphoresis. PSYCH: Appropriate GCS: 15 ED Course: Times/Reassessments: sleeping but awakens to voice. Mook Aguilar MD Past Med/Surg History Social History Preferred Language: Upper Sorbian Communication Ability: Effective Bilingual Patient Support Caseworker Required: No Beliefs That Will Affect Care: None marital status: Current Living Situation: Spouse Current Living Situation Comment: Lives with and 2 kids Feels Safe at Home: Yes Smoking Status: Current every day smoker Tobacco Type: cigarettes ; Cigarettes Per Day: 10-20 ; Second Hand Exposure: Yes ; Hx Alcohol Use: Yes Alcohol type: other Hx Substance Use: No Allergies Allergies Allergy/AdvReac Type Severity Reaction Status Date / Time vancomycin Allergy Intermediate Hives Verified 04/22/20 00:26 hydrocodone [From Vicodin] Allergy Mild Rash Verified 04/22/20 00:26 Home Meds Home Medications Medication Instructions Recorded Confirmed acetaminophen 1,000 mg PO Q6H PRN 04/03/19 04/22/20 albuterol sulfate [Ventolin HFA] 2 puff INHALATION Q4 PRN 04/03/19 04/22/20 aspirin 81 mg PO DAILY 04/03/19 04/22/20 atorvastatin 40 mg PO HS 04/03/19 04/22/20 oxycodone-acetaminophen 1 tab PO Q12 PRN 04/03/19 04/22/20 pantoprazole 40 mg PO HS 04/03/19 04/22/20 sennosides [senna] 2 tab PO DAILY PRN 04/03/19 04/22/20 Lactobacillus acidophilus 1 mmu cells PO TID 08/16/19 04/22/20 cholecalciferol (vitamin D3) 2,000 unit PO DAILY 08/16/19 04/22/20 Chantix 1 mg PO BID 04/02/20 04/22/20 metolazone 2.5 mg PO UD 04/02/20 04/22/20 spironolactone 50 mg PO BID 04/08/20 04/22/20 torsemide 80 mg PO BID 04/08/20 04/22/20 dulaglutide [Trulicity] 1.5 mg SUBCUT WK 04/22/20 04/22/20 empagliflozin [Jardiance] 10 mg PO DAILY 04/22/20 04/22/20 fluticasone propionate [Flonase 2 spray INTRANASAL DAILY PRN 04/22/20 04/22/20 Allergy Relief] sertraline 50 mg PO DAILY 04/22/20 04/22/20 testosterone [Androderm] 4 mg TRANSDERMAL DAILY 04/22/20 04/22/20 tiotropium bromide [Spiriva with 1 cap INHALATION DAILY 04/22/20 04/22/20 HandiHaler] Previous Rx's Medication Instructions Recorded blood sugar diagnostic [OneTouch #100 ea 04/05/20 Verio test strips] lancets [OneTouch Delica Lancets] #100 ea 04/05/20 metformin 500 mg PO DAILY #30 tab 04/05/20 Lantus Solostar U-100 Insulin 40 units SQ HS #15 ml 04/10/20 potassium chloride 20 meq PO HS 5 Days #5 tab 04/10/20 Results & Data (ED) Vital Signs Vital Signs - 24 hr 04/21/20 23:39 04/22/20 00:51 04/22/20 02:08 Temperature 36.5 C Temperature Source Oral Pulse Rate 80 Pulse Rate [Apical] 77 76 Respiratory Rate 24 24 20 Respiratory Effort / Characteristics Non-Labored Spontaneous Non-Labored Spontaneous Respiratory Depth Normal Normal Respiratory Pattern Regular Regular Blood Pressure 140/83 Blood Pressure [Left Arm] 152/99 H 151/78 H Blood Pressure Mean 102 Blood Pressure Mean [Left Arm] 116 102 Blood Pressure Position [Left Arm] Sitting Pulse Oximetry 95 95 95 Oxygen Delivery Method Room Air Room Air Room Air Sepsis Recent Fever Within 48 Hours No Sepsis Action Taken by Nursing No Action Required Laboratory Data Result diagrams: 04/22/20 01:08 04/22/20 01:08 Lab Results 04/22/20 04/22/20 04/22/20 Range/Units 01:08 01:08 01:08 WBC 7.26 (4.8-10.8) K/uL RBC 4.48 L (4.7-6.1) M/uL Hgb 13.7 L (14.0-18.0) g/dL Hct 42.0 (42-52) % MCV 93.8 (80-100) fL MCH 30.6 (25-34) pg MCHC 32.6 (32-36) g/dL RDW Std Deviation 50.2 H (36.4-46.3) fL RDW Coeff of [place] 14.7 H (11.5-14.5) % Plt Count 255 (130-400) K/uL MPV 10.9 H (7.4-10.4) fL Immature Gran % (Auto) 0.0 % Neut % (Auto) 65.6 % Lymph % (Auto) 26.3 % [place] % (Auto) 5.1 % Eos % (Auto) 2.6 % Baso % (Auto) 0.4 % Immature Gran # (Auto) 0.00 (0.00-0.02) K/uL Neut # (Auto) 4.76 (1.4-6.5) K/uL Lymph # (Auto) 1.91 (1.2-3.4) K/uL [place] # (Auto) 0.37 (0.11-0.59) K/uL Eos # (Auto) 0.19 (0-0.5) K/uL Baso # (Auto) 0.03 (0-0.2) K/uL PT 9.8 (9.0-12.0) Seconds INR 0.9 (0.9-1.1) Sodium 135 L (136-145) mmol/L Potassium 4.0 (3.5-5.1) mmol/L Chloride 94 L (98-107) mmol/L Carbon Dioxide 34 H (21-32) mmol/L Anion Gap 7.0 (3-11) BUN 17 (7-18) mg/dl Creatinine 1.34 (0.6-1.4) mg/dl Est Cr Clr Drug Dosing 120.1 ml/min Est GFR ( Amer) 70.1 Est GFR (Non-Af Amer) 60.5 BUN/Creatinine Ratio 12.9 (10-20) Glucose 413 H* (70-99) mg/dl POC Glucose (70-99) mg/dl Calcium 8.1 L (8.5-10.1) mg/dl Phosphorus 2.4 L (2.5-4.9) mg/dl Magnesium 1.5 L (1.8-2.4) mg/dl Total Bilirubin 0.3 (0.2-1) mg/dl Direct Bilirubin < 0.1 (0-0.2) mg/dl AST 13 L (15-37) U/L ALT 25 (12-78) U/L Alkaline Phosphatase 133 H (45-117) U/L Troponin I < 0.015 (0-0.045) ng/ml NT-Pro-B Natriuret Pep 52 (0-900) pg/ml Total Protein 7.8 (6.4-8.2) gm/dl Albumin 3.1 L (3.4-5.0) gm/dl Beta-Hydroxybutyric Acd 1.49 (0.2-2.81) mg/dl Urine Color Urine Appearance (Clear) Urine pH (4.5-7.5) Ur Specific [place] (1.000-1.030) Urine Protein (Negative) Urine Glucose (UA) (Negative) Urine Ketones (Negative) Urine Blood (Negative) Urine Nitrite (Negative) Urine Bilirubin (Negative) Urine Urobilinogen (Negative) Ur Leukocyte Esterase (Negative) 04/22/20 04/22/20 04/22/20 Range/Units 01:35 02:02 02:04 WBC (4.8-10.8) K/uL RBC (4.7-6.1) M/uL Hgb (14.0-18.0) g/dL Hct (42-52) % MCV (80-100) fL MCH (25-34) pg MCHC (32-36) g/dL RDW Std Deviation (36.4-46.3) fL RDW Coeff of [place] (11.5-14.5) % Plt Count (130-400) K/uL MPV (7.4-10.4) fL Immature Gran % (Auto) % Neut % (Auto) % Lymph % (Auto) % [place] % (Auto) % Eos % (Auto) % Baso % (Auto) % Immature Gran # (Auto) (0.00-0.02) K/uL Neut # (Auto) (1.4-6.5) K/uL Lymph # (Auto) (1.2-3.4) K/uL [place] # (Auto) (0.11-0.59) K/uL Eos # (Auto) (0-0.5) K/uL Baso # (Auto) (0-0.2) K/uL PT (9.0-12.0) Seconds INR (0.9-1.1) Sodium (136-145) mmol/L Potassium (3.5-5.1) mmol/L Chloride (98-107) mmol/L Carbon Dioxide (21-32) mmol/L Anion Gap (3-11) BUN (7-18) mg/dl Creatinine (0.6-1.4) mg/dl Est Cr Clr Drug Dosing ml/min Est GFR ( Amer) Est GFR (Non-Af Amer) BUN/Creatinine Ratio (10-20) Glucose (70-99) mg/dl POC Glucose 404 H* 433 H* (70-99) mg/dl Calcium (8.5-10.1) mg/dl Phosphorus (2.5-4.9) mg/dl Magnesium (1.8-2.4) mg/dl Total Bilirubin (0.2-1) mg/dl Direct Bilirubin (0-0.2) mg/dl AST (15-37) U/L ALT (12-78) U/L Alkaline Phosphatase (45-117) U/L Troponin I (0-0.045) ng/ml NT-Pro-B Natriuret Pep (0-900) pg/ml Total Protein (6.4-8.2) gm/dl Albumin (3.4-5.0) gm/dl Beta-Hydroxybutyric Acd (0.2-2.81) mg/dl Urine Color Yellow Urine Appearance Clear (Clear) Urine pH 5.5 (4.5-7.5) Ur Specific [place] 1.021 (1.000-1.030) Urine Protein Negative (Negative) Urine Glucose (UA) 3+ H (Negative) Urine Ketones Negative (Negative) Urine Blood Negative (Negative) Urine Nitrite Negative (Negative) Urine Bilirubin Negative (Negative) Urine Urobilinogen Negative (Negative) Ur Leukocyte Esterase Negative (Negative) 04/22/20 Range/Units 02:39 WBC (4.8-10.8) K/uL RBC (4.7-6.1) M/uL Hgb (14.0-18.0) g/dL Hct (42-52) % MCV (80-100) fL MCH (25-34) pg MCHC (32-36) g/dL RDW Std Deviation (36.4-46.3) fL RDW Coeff of [place] (11.5-14.5) % Plt Count (130-400) K/uL MPV (7.4-10.4) fL Immature Gran % (Auto) % Neut % (Auto) % Lymph % (Auto) % [place] % (Auto) % Eos % (Auto) % Baso % (Auto) % Immature Gran # (Auto) (0.00-0.02) K/uL Neut # (Auto) (1.4-6.5) K/uL Lymph # (Auto) (1.2-3.4) K/uL [place] # (Auto) (0.11-0.59) K/uL Eos # (Auto) (0-0.5) K/uL Baso # (Auto) (0-0.2) K/uL PT (9.0-12.0) Seconds INR (0.9-1.1) Sodium (136-145) mmol/L Potassium (3.5-5.1) mmol/L Chloride (98-107) mmol/L Carbon Dioxide (21-32) mmol/L Anion Gap (3-11) BUN (7-18) mg/dl Creatinine (0.6-1.4) mg/dl Est Cr Clr Drug Dosing ml/min Est GFR ( Amer) Est GFR (Non-Af Amer) BUN/Creatinine Ratio (10-20) Glucose (70-99) mg/dl POC Glucose 338 H* (70-99) mg/dl Calcium (8.5-10.1) mg/dl Phosphorus (2.5-4.9) mg/dl Magnesium (1.8-2.4) mg/dl Total Bilirubin (0.2-1) mg/dl Direct Bilirubin (0-0.2) mg/dl AST (15-37) U/L ALT (12-78) U/L Alkaline Phosphatase (45-117) U/L Troponin I (0-0.045) ng/ml NT-Pro-B Natriuret Pep (0-900) pg/ml Total Protein (6.4-8.2) gm/dl Albumin (3.4-5.0) gm/dl Beta-Hydroxybutyric Acd (0.2-2.81) mg/dl Urine Color Urine Appearance (Clear) Urine pH (4.5-7.5) Ur Specific [place] (1.000-1.030) Urine Protein (Negative) Urine Glucose (UA) (Negative) Urine Ketones (Negative) Urine Blood (Negative) Urine Nitrite (Negative) Urine Bilirubin (Negative) Urine Urobilinogen (Negative) Ur Leukocyte Esterase (Negative) Administered Medications Discontinued Medications Furosemide (Lasix) 80 mg IV NOW STA Stop: 04/22/20 02:03 Last Admin: 04/22/20 02:07 Dose: 80 mg Documented by: [id number] Insulin Human Regular (Novolin R U-100 Per Unit) 8 units SQ ONE STA Stop: 04/22/20 01:57 Last Admin: 04/22/20 02:04 Dose: Not Given Documented by: [id number] Insulin Human Regular (Novolin R U-100 Per Unit) 8 units IV NOW STA Stop: 04/22/20 02:02 Last Admin: 04/22/20 02:05 Dose: 8 units Documented by: [id number] Cosigned by: [id number] Discharge Plan Visit Data *Final* Discharge Date/Time: 04/22/20 04:00 Chief Complaint: Referred by Doctor Stated Complaint: ELECTRIC GOING THROUGH BODY ED Provider: Mook Aguilar Discharge Problem: Acute diastolic congestive heart failure, Excessive weight gain, Fluid overload, Failure of outpatient treatment, Acute hyperglycemia Patient Disposition: Admitted As Inpatient Discharge Instructions Interventions: ED Discharge Assessment Last Done: 04/22/20 04:00 Discharge Problem: Fluid overload Qualifiers: Hypervolemia type: other Qualified Code(s): E87.79 - Other fluid overload
[2020-04-22 01:18] LABS: Basophils # (auto) 0.03 K/uL (0-0.2); Basophils % (auto) 0.4 %; Eosinophils # (auto) 0.19 K/uL (0-0.5); Eosinophils % (auto) 2.6 %; Hemoglobin 13.7 g/dL (14.0-18.0); Lymphocytes # (auto) 1.91 K/uL (1.2-3.4); Lymphocytes % (auto) 26.3 %; Mean Corpuscular Hemoglobin 30.6 pg (25-34); Mean Corpuscular Hgb Conc 32.6 g/dL (32-36); Mean Corpuscular Volume 93.8 fL (80-100); Mean Platelet Volume 10.9 fL (7.4-10.4); Monocytes # (auto) 0.37 K/uL (0.11-0.59); Monocytes % (auto) 5.1 %; Neutrophils # (auto) 4.76 K/uL (1.4-6.5); Neutrophils % (auto) 65.6 %; Platelet Count 255 K/uL (130-400); RDW Coefficient of Variation 14.7 % (11.5-14.5); RDW Standard Deviation 50.2 fL (36.4-46.3); Red Blood Count 4.48 M/uL (4.7-6.1); White Blood Count 7.26 K/uL (4.8-10.8)
[2020-04-22 01:29] LABS: INR 0.9 (0.9-1.1); Prothrombin Time 9.8 Seconds (9.0-12.0)
[2020-04-22 01:44] LABS: Alanine Aminotransferase 25 U/L (12-78); Albumin Level 3.1 gm/dl (3.4-5.0); Alkaline Phosphatase 133 U/L (45-117); BUN Creatinine Ratio 12.9 (10-20); Bilirubin,Total 0.3 mg/dl (0.2-1); Blood Urea Nitrogen 17 mg/dl (7-18); Calcium 8.1 mg/dl (8.5-10.1); Carbon Dioxide 34 mmol/L (21-32); Chloride 94 mmol/L (98-107); Creatinine Clr Calc Pharmacy 120.1 ml/min; Est GFR (African American) 70.1; Est GFR (Non-African American) 60.5; Glucose 413 mg/dl (70-99); NT Pro B Type Natriuretic Pept 52 pg/ml (0-900); Phosphorus 2.4 mg/dl (2.5-4.9); Sodium 135 mmol/L (136-145); Total Protein 7.8 gm/dl (6.4-8.2); Troponin I < 0.015 ng/ml (0-0.045)
[2020-04-22] MEDS ORDERED: INSULIN HUMAN REGULAR SC STA (01:50)
[2020-04-22 01:56] LABS: Aspartate Aminotransferase 13 U/L (15-37); Beta-Hydroxybutyrate 1.49 mg/dl (0.2-2.81); Bilirubin Direct < 0.1 mg/dl (0-0.2); Magnesium 1.5 mg/dl (1.8-2.4)
[2020-04-22] MEDS ORDERED: NovoLIN-R INSULIN PER UNIT CHARGE SQ STA (01:56)
[2020-04-22 02:01] LABS: Appearance Urine Clear (Clear); Bilirubin Urine Negative (Negative); Blood Urine Negative (Negative); Color Urine Yellow; Glucose Urine UA 3+ (Negative); Ketones Urine Negative (Negative); Leukocyte Esterase Urine Negative (Negative); Nitrite Urine Negative (Negative); Protein Urine Negative (Negative); Specific Gravity Urine 1.021 (1.000-1.030); Urobilinogen Urine Negative (Negative); pH Urine 5.5 (4.5-7.5)
[2020-04-22] MEDS ORDERED: NovoLIN-R INSULIN PER UNIT CHARGE IV STA (02:01)
[2020-04-22] MEDS ORDERED: FUROSEMIDE 40 MG/4 ML VIAL IV STA (02:02)
--- NOTE | 2020-04-22 04:22 | History and Physical Report ---
DATE OF ADMISSION: 04/21/2020 CHIEF COMPLAINT: Chest pressure and shortness of breath. HISTORY OF PRESENT ILLNESS: This is a 54-year-old male with past medical history significant for morbidly obese and obstructive sleep apnea, noncompliant with BiPAP, hypopituitarism, hyperlipidemia, type 2 diabetes, venous stasis of the bilateral lower extremity, hypertension, chronic diastolic CHF, chronic bilateral lower extremity lymphedema and recurrent cellulitis of bilateral lower extremity presents with increasing weight and chest pressure and shortness of breath. The patient was recently in the hospital a couple of times for cellulitis, last admission, he was treated with Rocephin and doxycycline. He was discharged on Omnicef and doxycycline. The patient finished the course. He saw the family doctor after discharge he was supposed to see heart doctor yesterday but could not make the appointment.He gained about 20 pounds since discharge. His abdominal girth is increasing and lower extremity swelling has increased .He ambulates with a walker at home, but he is having difficulty ambulation. 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 The patient says he is using only once in a while couple of hours of BiPAP in the night but does not tolerate it. Denies any cough. No loss of smell or taste. Appetite is okay. He has dry mouth and has has difficulty swallowing sometimes because of dry mouth. Has mild headache, no blurred vision, no earache, no runny nose, no sore throat, no fever, no chills, no nausea, no vomiting, no abdominal pain. Normal bowel movements. Denies any bloody stools or black stools. He says he is not micturating much. Denies any burning micturition or blood in the urine. Currently is sitting in the chair, hemodynamically stable. ALLERGIES: VANCOMYCIN, HYDROCODONE. PAST MEDICAL HISTORY: As mentioned above. PAST SURGICAL HISTORY: Colonoscopy, injection of lumbosacral spine. MEDICATIONS: Currently, the patient is on torsemide 80 mg p.o. b.i.d., Trulicity 1.5 injection once weekly, Lantus 40 units p.o. daily, Chantix 1 mg p.o. b.i.d., vitamin D 2000 units p.o. daily, metolazone 2.5 mg on Tuesdays and , nystatin powder apply to affected area t.i.d., spironolactone 50 mg p.o. b.i.d., Androderm 4 mg patch once daily, Ditropan XL 10 mg p.o. daily, Zoloft 50 mg daily, Flomax 0.4 mg daily, Jardiance 10 mg p.o. daily, aspirin 81 mg p.o. daily, Protonix 40 mg p.o. daily, Amitiza 24 mcg p.o. b.i.d., Senokot 2 tablets daily p.r.n., albuterol 2 puffs every 4 hours p.r.n., atorvastatin 40 mg p.o. daily, Percocet 5/325 mg 1 tablet p.o. b.i.d. p.r.n., oxygen 2 liters through BiPAP while sleeping, Flonase 2 sprays in each nostril at bedtime, Tylenol 500 mg p.o. q. 6 hours p.r.n. pain, Spiriva 1 capsule inhalation daily, Advair Diskus one inhalation b.i.d. FAMILY HISTORY: Significant for father has heart disorder. Paternal grandfather has heart disorder. Aunt has diabetes. SOCIAL HISTORY: and lives with his and kids. Smokes 0.5 packs a day for 20 years. No alcohol use, no drug use. REVIEW OF SYMPTOMS: As per HPI. Rest of review of systems negative. PHYSICAL EXAMINATION: GENERAL: The patient is morbidly obese, not in acute distress, somewhat sleepy. VITAL SIGNS: Temperature 36.5, pulse 76, respiratory rate 20, blood pressure 151/78, oxygen 95% on room air. HEENT: No pallor. Pupils equal, round, and reactive to light. NECK: No neck masses. No JVD. CARDIOVASCULAR: S1, S2 heard, regular rate and rhythm, no murmur, no gallop. RESPIRATORY SYSTEM: Normal AP diameter. No accessory muscle use. No wheezing, no crackles. ABDOMEN: Soft. Abdomen somewhat hard, dense bowel sounds sluggish. Nontender. Mild distention. CENTRAL NERVOUS SYSTEM: Cranial nerves II-XII are grossly intact. Nonfocal. EXTREMITIES: Bilateral lower extremity gross edema present. No obvious erythema seen. No drainage seen. LABORATORIES DATA: WBC 7.0, hemoglobin 13.7, hematocrit 42, platelets 255. PT 9.8, INR 0.9. Sodium 135, potassium 4, chloride 94, bicarbonate 34, BUN 17, creatinine 1.34, serum glucose 1413, calcium 8.1, phosphorus 2.4, magnesium 1.5, total bilirubin 0.3, direct bilirubin less than 0.1, AST 13, ALT 25, alkaline phosphatase is 133. Troponin I less than 0.015. BNP 52. Beta-hydroxybutyric acid 1.49. Urinalysis +3 glucose. IMAGING: Chest x-ray, pulmonary congestion. EKG: Normal sinus rhythm at 77, right bundle branch block, no acute ST changes seen. ASSESSMENT AND PLAN: This is a 54-year-old male who presents with chest tightness, shortness of breath and increased weight gain. 1. Acute on chronic diastolic congestive heart failure, he has gained about 20 pounds since discharged, increasing abdominal girth and also increased lower extremity edema. Feeling somewhat short of breath. Given IV Lasix 80 mg in the ER. The patient is on spironolactone 50 mg p.o. b.i.d. and torsemide 80 mg p.o. b.i.d. at home. We will hold torsemide and place on IV Lasix 80 b.i.d. Daily weights, I's and O's. Cardiology consult in a.m. for further recommendations. 2. Chest pressure, probably from above. Initial troponin negative. EKG unremarkable. Follow the serial enzymes and echo.. Await cardiac input. We will get echocardiogram. 3. Obstructive sleep apnea, supposed to be on BiPAP, but the patient is not compliant with it. Advised to continue with BiPAP. 4. Diabetes. . Continue his home Lantus. Hold his oral medications and place him insulin siding scale and follow the blood sugar closely. 5. Morbid obesity, needs counseling. 6. Hyperlipidemia, on statin. 7. hx of Tobacco abuse. Continue home inhalers. 8. Deep venous thrombosis prophylaxis. Heparin subQ. DISPOSITION: Closely monitor in the tele floor. Level 1 full code as per discussion with the patient. PT and OT prior to discharge. Social Service to help with discharge planning. MTDD
[2020-04-22] MEDS ORDERED: SENNA 8.6 MG TAB PO PRN (04:39)
[2020-04-22] MEDS ORDERED: NITROGLYCERIN SL 0.4 MG/TAB TAB SL PRN (04:39)
[2020-04-22] MEDS ORDERED: ONDANSETRON INJ 2 MG/ML 2 ML VIAL IV PRN (04:39)
[2020-04-22] MEDS ORDERED: POLYETHYLENE (MIRALAX) 17 GM PACK PO PRN (04:39)
[2020-04-22] MEDS ORDERED: ALBUTEROL HFA 8 GM INHALER INH PRN (04:39)
[2020-04-22] MEDS ORDERED: FLUTICASONE PROPIONATE NA SPR 16 GM BTL PRN (04:39)
--- NOTE | 2020-04-22 06:46 | XRay Report ---
XR chest 1V portable CLINICAL HISTORY: Shortness of breath, weight kimi dyspnea COMPARISON STUDY: 04/02/2020 FINDINGS: Moderate increase in cardiac size as well as prominence of the pulmonary vasculature. Diaph ragms are smooth. Costophrenic angles are sharp. IMPRESSION: Congestive heart failure ACT 112: Negative or not required by law. The above report was generated using voice recognition software. It may contain grammatical, syntax or spelling errors. Electronically signed by: Pancho Gupta M.D. 04/22/2020 6:45 AM
--- NOTE | 2020-04-22 07:06 | Ultrasound Report ---
ULTRASOUND BILATERAL LOWER EXTREMITY VENOUS CLINICAL HISTORY: Lower extremity edema. COMPARISON STUDY: Right lower extremity venous ultrasound dated 04/02/2020. TECHNIQUE: Real-time, grayscale, and color Doppler sonography of the deep veins of the right and left lower extremity was performed from the inguinal crease to the calf. Compression and augmentation wer e utilized. The examination is significantly degraded by large body habitus and portable technique. FINDINGS: There is no sonographic evidence of deep venous thrombosis identified in the right or left lower extremity. The common femoral, superficial femoral, and popliteal veins are patent and normally compressible bilaterally. The greater saphenous vein and the profunda femoris vein at the junction w ith the common femoral vein are clear in both legs. The visualized calf veins are patent bilaterally. Soft tissue edema is noted in the calves. IMPRESSION: There is no sonographic evidence of deep venous thrombosis identified in the right or lef t lower extremity. ACT 112: Negative or not required by law. Electronically signed by: Wilfrid Roy M.D. 04/22/2020 7:04 AM
[2020-04-22 07:15] LABS: Basophils # (auto) 0.04 K/uL (0-0.2); Basophils % (auto) 0.5 %; Eosinophils # (auto) 0.17 K/uL (0-0.5); Eosinophils % (auto) 2.3 %; Hematocrit (blood only) 42.4 % (42-52); Hemoglobin 13.4 g/dL (14.0-18.0); Immature Granulocytes # (auto) 0.02 K/uL (0.00-0.02); Immature Granulocytes % (auto) 0.3 %; Lymphocytes # (auto) 1.54 K/uL (1.2-3.4); Lymphocytes % (auto) 21.1 %; Mean Corpuscular Hemoglobin 29.5 pg (25-34); Mean Corpuscular Hgb Conc 31.6 g/dL (32-36); Mean Corpuscular Volume 93.2 fL (80-100); Monocytes # (auto) 0.37 K/uL (0.11-0.59); Monocytes % (auto) 5.1 %; Neutrophils # (auto) 5.15 K/uL (1.4-6.5); Neutrophils % (auto) 70.7 %; Platelet Count 244 K/uL (130-400); RDW Coefficient of Variation 14.7 % (11.5-14.5); RDW Standard Deviation 49.7 fL (36.4-46.3); Red Blood Count 4.55 M/uL (4.7-6.1); White Blood Count 7.29 K/uL (4.8-10.8)
[2020-04-22 07:38] LABS: Estimated Average Glucose 258 mg/dl; Hemoglobin A1C 10.6 % (4.5-5.6)
[2020-04-22 07:48] LABS: BUN Creatinine Ratio 16.1 (10-20); Blood Urea Nitrogen 18 mg/dl (7-18); Calcium 8.3 mg/dl (8.5-10.1); Carbon Dioxide 34 mmol/L (21-32); Chloride 94 mmol/L (98-107); Creatinine Clr Calc Pharmacy 143.5 ml/min; Est GFR (African American) 87.1; Est GFR (Non-African American) 75.1; Glucose 319 mg/dl (70-99); Magnesium 1.5 mg/dl (1.8-2.4); Potassium 3.5 mmol/L (3.5-5.1); Sodium 134 mmol/L (136-145); Troponin I < 0.015 ng/ml (0-0.045)
[2020-04-22 08:02] LABS: Beta-Hydroxybutyrate 1.42 mg/dl (0.2-2.81)
[2020-04-22] MEDS: INSULIN ASPART 100 UNITS/ML 3 ML PEN SC SCH ×4 (08:39→20:45)
[2020-04-22] MEDS: TESTOSTERONE~ORDER AWAITING ACTION SCH ×3 (08:39→23:53)
[2020-04-22] MEDS: metOLazone 2.5 MG TABLET PO SCH (08:40)
[2020-04-22] MEDS: VARENICLINE 1 MG TAB PO SCH ×2 (08:40→20:41)
[2020-04-22] MEDS: CHOLECALCIFEROL 1,000 UNITS 25 MCG TAB PO SCH (08:41)
[2020-04-22] MEDS: SERTRALINE HCL 50 MG TABLET PO SCH (08:41)
[2020-04-22] MEDS: SPIRONOLACTONE 25 MG TAB PO SCH ×2 (08:41→20:41)
[2020-04-22] MEDS: ASPIRIN 81 MG ECTAB PO SCH (08:41)
[2020-04-22] MEDS: UMECLIDINIUM BROMIDE 62.5MCG/BLISTER 7 PUFFS/INHALER INH SCH (08:41)
[2020-04-22] MEDS: HEPARIN SOD 5,000 UNIT/0.5 ML VIAL SQ SCH ×2 (08:41→20:42)
[2020-04-22] MEDS ORDERED: LACTOBACILLUS ACIDOPHILUS PO SCH (09:00)
[2020-04-22] MEDS ORDERED: FUROSEMIDE 80 MG in SYRINGE 0 ML IV SCH (09:00)
[2020-04-22] MEDS ORDERED: FUROSEMIDE 40 MG/4 ML VIAL IV SCH (09:00)
--- NOTE | 2020-04-22 09:56 | Cardiology Consultation ---
Date of Consultation April 22, 2020 Assessment & Plan (1) Pickwickian syndrome: Patient admitted with massive volume overload secondary to pickwickian syndrome hypoventilation. Patient has preserved LV systolic function on echocardiogram and no significant valvular disease with current issues being predominantly driven by underlying severe respiratory issues. Overall weight gain of nearly 10 kg in the past 2 weeks but overall 30 kg since last dry weight Patient poorly compliant with BiPAP at home but agreeable to use in hospital Have discussed tracheostomy which patient is extremely reluctant to consider. Recommendations: IV diuretics with potassium supplement to avoid atrial arrhyt hmias. Will increase furosemide 80 mg IV 3 times daily Oxygen and BiPAP supplementation Consider pulmonology opinion (2) Fluid overload: (3) Morbid obesity: (4) SIDRA treated with BiPAP: (5) Acute diastolic congestive heart failure: History of Present Illness Reason for Consultation: Hypoventilation syndrome with volume overload Requesting Physician: Dr. Fuentes Attending Physician: Elidia Fuentes MD History of Present Illness Patient is a 54-year-old male with ongoing issues 1. Morbid obesity 2. Obstructive sleep apnea O2 and BiPAP dependent with poor compliance 3. Pickwickian syndrome/chronic hypoventilation with chronic right heart/diastolic failure 4. Chronic stasis edema with persistent cellulitis 5. Diagnostic cardiac catheterization per records 10/2016 minor nonobstructive coronary disease 6. Hypo testosterone Patient admitted with progressive worsening dyspnea and weight gain of greater than 10 kg over the past 2 weeks since recent discharge and treatment for cellulitis lower extremities. Overall weight up greater than 30 kg since last inpatient treatment for diastolic heart failure Patient has been tempted to be managed as an outpatient with increasing oral diuretics. Notes poor compliance with BiPAP and gradually increasing abdominal girth lower extremity edema and dyspnea No overt fevers or chills. No cough no headache or visual changes. Patient frequently somnolent and visible apnea observed during admission Patient's outpatient diuretics have been titrated to 80 mg twice daily of torsemide, spironolactone 50 mg twice daily and metolazone 2.5 mg twice per week with continued volume overload and weight gain Denies any bleeding difficulties notes no distinct chest pain. Notes no syncope or near syncope. Ambulation has become progressively more difficult. No skin breakdown Allergies Allergy/AdvReac Type Severity Reaction Status Date / Time vancomycin Allergy Intermediate Hives Verified 04/22/20 00:26 hydrocodone [From Vicodin] Allergy Mild Rash Verified 04/22/20 00:26 Home Medications Home Medications Medication Instructions Recorded Confirmed Type acetaminophen 1,000 mg PO Q6H PRN 04/03/19 04/22/20 History albuterol sulfate [Ventolin HFA] 2 puff INHALATION Q4 PRN 04/03/19 04/22/20 History aspirin 81 mg PO DAILY 04/03/19 04/22/20 History atorvastatin 40 mg PO HS 04/03/19 04/22/20 History oxycodone-acetaminophen 1 tab PO Q12 PRN 04/03/19 04/22/20 History pantoprazole 40 mg PO HS 04/03/19 04/22/20 History sennosides [senna] 2 tab PO DAILY PRN 04/03/19 04/22/20 History Lactobacillus acidophilus 1 mmu cells PO TID 08/16/19 04/22/20 History cholecalciferol (vitamin D3) 2,000 unit PO DAILY 08/16/19 04/22/20 History Chantix 1 mg PO BID 04/02/20 04/22/20 History metolazone 2.5 mg PO UD 04/02/20 04/22/20 History blood sugar diagnostic [OneTouch #100 ea 04/05/20 Rx Verio test strips] lancets [OneTouch Delica Lancets] #100 ea 04/05/20 Rx metformin 500 mg PO DAILY #30 tab 04/05/20 04/22/20 Rx spironolactone 50 mg PO BID 04/08/20 04/22/20 History torsemide 80 mg PO BID 04/08/20 04/22/20 History Lantus Solostar U-100 Insulin 40 units SQ HS #15 ml 04/10/20 04/22/20 Rx potassium chloride 20 meq PO HS 5 Days #5 tab 04/10/20 04/22/20 Rx dulaglutide [Trulicity] 1.5 mg SUBCUT WK 04/22/20 04/22/20 History empagliflozin [Jardiance] 10 mg PO DAILY 04/22/20 04/22/20 History fluticasone propionate [Flonase 2 spray INTRANASAL DAILY PRN 04/22/20 04/22/20 History Allergy Relief] sertraline 50 mg PO DAILY 04/22/20 04/22/20 History testosterone [Androderm] 4 mg TRANSDERMAL DAILY 04/22/20 04/22/20 History tiotropium bromide [Spiriva with 1 cap INHALATION DAILY 04/22/20 04/22/20 History HandiHaler] Patient History Medical History Asthma Bulging lumbar disc Bulging of cervical intervertebral disc Chronic back pain Chronic right-sided CHF (congestive heart failure) COPD (chronic obstructive pulmonary disease) Diabetes GERD with apnea Gout Hyperlipidemia Hypertension Morbid obesity with BMI of 50.0-59.9, adult Myocardial Infarction ? 10 yrs ago Osteoarthritis RBBB Recurrent cellulitis Seizure Possible seizure in 2016 evaluation normal per patient , no problems since Sleep apnea bipap with 2L oxygen Thyroid nodule just monitoring Tobacco abuse Surgical History History of cardiac cath ? 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: No Beliefs That Will Affect Care: None marital status: Current Living Situation: Spouse Current Living Situation Comment: Lives with and 2 kids Other Information That Helps Us Care for You: No Feels Safe at Home: Yes Safety Concerns: Feels Safe At This Time Smoking Status: Current every day smoker Tobacco Type: cigarettes ; Cigarettes Per Day: 10-20 ; Do You Dip or Chew Tobacco: No ; Second Hand Exposure: Yes ; Tobacco Cessation Education Requested by Patient: No Hx Alcohol Use: Yes Alcohol type: other Hx Substance Use: No Review of Systems Review of Systems: All systems reviewed & are unremarkable except as noted in HPI & below Physical Exam Constitutional: + morbidly obese Eyes: PERRL, conjunctivae normal, anicteric sclerae ENMT: external ear and nose normal, oropharynx normal Neck: Extremely short and thick neck Respiratory: Auscultation: + diminished lung sounds Cardiovascular: Extremities: + edema (3+ diffuse) Distant heart sounds without audible murmur gallop or rub Gastrointestinal (Abdomen): Markedly obese with large panniculus and diffuse distention. No rebound or guarding no palpable organomegaly with limitations secondary to massive obesity Neurologic: PERRL, EOMI, accommodation nl, no face palsy, no dysarthria Results & Data ([facility]) Vital Signs (Past 12 Hours) Vital Signs Temp Pulse Pulse Resp BP BP Pulse Ox 04/22/20 08:02 37.2 C 84 15 139/70 90 04/22/20 04:38 36.6 C 82 16 153/68 H 93 04/22/20 04:00 72 18 158/87 H 93 04/22/20 02:08 76 20 151/78 H 95 04/22/20 00:51 77 24 152/99 H 95 04/21/20 23:39 36.5 C 80 24 140/83 95 Laboratory Results Laboratory Results - last 24 hr 04/22/20 04/22/20 04/22/20 01:08 01:08 01:08 WBC 7.26 RBC 4.48 L Hgb 13.7 L Hct 42.0 MCV 93.8 MCH 30.6 MCHC 32.6 RDW Std Deviation 50.2 H RDW Coeff of [place] 14.7 H Plt Count 255 MPV 10.9 H Immature Gran % (Auto) 0.0 Neut % (Auto) 65.6 Lymph % (Auto) 26.3 Alexander % (Auto) 5.1 Eos % (Auto) 2.6 Baso % (Auto) 0.4 Immature Gran # (Auto) 0.00 Neut # (Auto) 4.76 Lymph # (Auto) 1.91 Alexander # (Auto) 0.37 Eos # (Auto) 0.19 Baso # (Auto) 0.03 PT 9.8 INR 0.9 Sodium 135 L Potassium 4.0 Chloride 94 L Carbon Dioxide 34 H Anion Gap 7.0 BUN 17 Creatinine 1.34 Est Cr Clr Drug Dosing 120.1 Est GFR ( Amer) 70.1 Est GFR (Non-Af Amer) 60.5 BUN/Creatinine Ratio 12.9 Glucose 413 H* POC Glucose Estimat Average Glucose Hemoglobin A1c Calcium 8.1 L Phosphorus 2.4 L Magnesium 1.5 L Total Bilirubin 0.3 Direct Bilirubin < 0.1 AST 13 L ALT 25 Alkaline Phosphatase 133 H Troponin I < 0.015 NT-Pro-B Natriuret Pep 52 Total Protein 7.8 Albumin 3.1 L Beta-Hydroxybutyric Acd 1.49 Urine Color Urine Appearance Urine pH Ur Specific [place] Urine Protein Urine Glucose (UA) Urine Ketones Urine Blood Urine Nitrite Urine Bilirubin Urine Urobilinogen Ur Leukocyte Esterase Nasal Screen MRSA (PCR) 04/22/20 04/22/20 04/22/20 01:35 02:02 02:04 WBC RBC Hgb Hct MCV MCH MCHC RDW Std Deviation RDW Coeff of [place] Plt Count MPV Immature Gran % (Auto) Neut % (Auto) Lymph % (Auto) Alexander % (Auto) Eos % (Auto) Baso % (Auto) Immature Gran # (Auto) Neut # (Auto) Lymph # (Auto) Alexander # (Auto) Eos # (Auto) Baso # (Auto) PT INR Sodium Potassium Chloride Carbon Dioxide Anion Gap BUN Creatinine Est Cr Clr Drug Dosing Est GFR ( Amer) Est GFR (Non-Af Amer) BUN/Creatinine Ratio Glucose POC Glucose 404 H* 433 H* Estimat Average Glucose Hemoglobin A1c Calcium Phosphorus Magnesium Total Bilirubin Direct Bilirubin AST ALT Alkaline Phosphatase Troponin I NT-Pro-B Natriuret Pep Total Protein Albumin Beta-Hydroxybutyric Acd Urine Color Yellow Urine Appearance Clear Urine pH 5.5 Ur Specific [place] 1.021 Urine Protein Negative Urine Glucose (UA) 3+ H Urine Ketones Negative Urine Blood Negative Urine Nitrite Negative Urine Bilirubin Negative Urine Urobilinogen Negative Ur Leukocyte Esterase Negative Nasal Screen MRSA (PCR) 04/22/20 04/22/20 04/22/20 02:39 03:54 04:38 WBC RBC Hgb Hct MCV MCH MCHC RDW Std Deviation RDW Coeff of [place] Plt Count MPV Immature Gran % (Auto) Neut % (Auto) Lymph % (Auto) [place] % (Auto) Eos % (Auto) Baso % (Auto) Immature Gran # (Auto) Neut # (Auto) Lymph # (Auto) Alexander # (Auto) Eos # (Auto) Baso # (Auto) PT INR Sodium Potassium Chloride Carbon Dioxide Anion Gap BUN Creatinine Est Cr Clr Drug Dosing Est GFR ( Amer) Est GFR (Non-Af Amer) BUN/Creatinine Ratio Glucose POC Glucose 338 H* 330 H* Estimat Average Glucose Hemoglobin A1c Calcium Phosphorus Magnesium Total Bilirubin Direct Bilirubin AST ALT Alkaline Phosphatase Troponin I NT-Pro-B Natriuret Pep Total Protein Albumin Beta-Hydroxybutyric Acd Urine Color Urine Appearance Urine pH Ur Specific [place] Urine Protein Urine Glucose (UA) Urine Ketones Urine Blood Urine Nitrite Urine Bilirubin Urine Urobilinogen Ur Leukocyte Esterase Nasal Screen MRSA (PCR) Negative 04/22/20 04/22/20 04/22/20 07:08 07:08 07:08 WBC 7.29 RBC 4.55 L Hgb 13.4 L Hct 42.4 MCV 93.2 MCH 29.5 MCHC 31.6 L RDW Std Deviation 49.7 H RDW Coeff of [place] 14.7 H Plt Count 244 MPV 11.0 H Immature Gran % (Auto) 0.3 Neut % (Auto) 70.7 Lymph % (Auto) 21.1 Alexander % (Auto) 5.1 Eos % (Auto) 2.3 Baso % (Auto) 0.5 Immature Gran # (Auto) 0.02 Neut # (Auto) 5.15 Lymph # (Auto) 1.54 Alexander # (Auto) 0.37 Eos # (Auto) 0.17 Baso # (Auto) 0.04 PT INR Sodium 134 L Potassium 3.5 Chloride 94 L Carbon Dioxide 34 H Anion Gap 6.0 BUN 18 Creatinine 1.12 Est Cr Clr Drug Dosing 143.5 Est GFR ( Amer) 87.1 Est GFR (Non-Af Amer) 75.1 BUN/Creatinine Ratio 16.1 Glucose 319 H* POC Glucose Estimat Average Glucose 258 Hemoglobin A1c 10.6 H Calcium 8.3 L Phosphorus Magnesium 1.5 L Total Bilirubin Direct Bilirubin AST ALT Alkaline Phosphatase Troponin I < 0.015 NT-Pro-B Natriuret Pep Total Protein Albumin Beta-Hydroxybutyric Acd 1.42 Urine Color Urine Appearance Urine pH Ur Specific [place] Urine Protein Urine Glucose (UA) Urine Ketones Urine Blood Urine Nitrite Urine Bilirubin Urine Urobilinogen Ur Leukocyte Esterase Nasal Screen MRSA (PCR) 04/22/20 04/22/20 07:33 07:34 WBC RBC Hgb Hct MCV MCH MCHC RDW Std Deviation RDW Coeff of [place] Plt Count MPV Immature Gran % (Auto) Neut % (Auto) Lymph % (Auto) [place] % (Auto) Eos % (Auto) Baso % (Auto) Immature Gran # (Auto) Neut # (Auto) Lymph # (Auto) [place] # (Auto) Eos # (Auto) Baso # (Auto) PT INR Sodium Potassium Chloride Carbon Dioxide Anion Gap BUN Creatinine Est Cr Clr Drug Dosing Est GFR ( Amer) Est GFR (Non-Af Amer) BUN/Creatinine Ratio Glucose POC Glucose 341 H* 318 H* Estimat Average Glucose Hemoglobin A1c Calcium Phosphorus Magnesium Total Bilirubin Direct Bilirubin AST ALT Alkaline Phosphatase Troponin I NT-Pro-B Natriuret Pep Total Protein Albumin Beta-Hydroxybutyric Acd Urine Color Urine Appearance Urine pH Ur Specific [place] Urine Protein Urine Glucose (UA) Urine Ketones Urine Blood Urine Nitrite Urine Bilirubin Urine Urobilinogen Ur Leukocyte Esterase Nasal Screen MRSA (PCR) (1) Fluid overload Hypervolemia type: other Qualified Code(s): E87.79 - Other fluid overload
[2020-04-22] MEDS ORDERED: POTASSIUM CHLORIDE 20 MEQ TABCR PO STA (10:08)
[2020-04-22 10:51] LABS: Base Excess ABG 9.6 mEq/L (-9-1.8); HCO3 ABG 36 mmol/L (19-24); Oxygen Saturation ABG 88.2 % (90-95); PCO2 ABG 57 mmHg (35-46); PO2 ABG 55 mmHg (80-95); pH ABG 7.42 (7.35-7.45)
[2020-04-22 10:54] LABS: Allen Test Pos (Pos)
[2020-04-22] MEDS: OXYCODONE/ACETAMINOPHEN 5mg/325mg TAB PO PRN ×2 (11:18→20:40)
--- NOTE | 2020-04-22 12:02 | Electrocardiogram Report ---
Test Reason : Blood Pressure : / mmHG Vent. Rate : 077 BPM Atrial Rate : 077 BPM P-R Int : 162 ms QRS Dur : 160 ms QT Int : 448 ms P-R-T Axes : 061 -13 016 degrees QTc Int : 506 ms Normal sinus rhythm Right bundle branch block Cannot rule out Inferior infarct (cited on or before 02-APR-2020) Abnormal ECG When compared with ECG of 02-APR-2020 16:34, No significant change Confirmed by Juan Carmichael ([id number]) on 04/22/2020 12:02:32 PM Referred By: Parag Alston Confirmed By:Juan Carmichael
[2020-04-22] MEDS: FUROSEMIDE 80 MG in SYRINGE 0 ML IV SCH ×2 (12:41→20:43)
--- NOTE | 2020-04-22 16:25 | Hospitalist Progress Note ---
Date of Service April 22, 2020 Assessment & Plan (1) Acute diastolic congestive heart failure: History of chronic diastolic heart failure Admitted with acute on chronic diastolic heart failure with fluid overload and recent weight gain Recommendation is complicated by obesity hypoventilation syndrome Has been getting intravenous diuretics Appreciate cardiology input and recommendation Echo of the heart-extremely limited echo, normal LV size, moderate concentric LVH, EF 60 to 65%, grade 1 diastolic dysfunction and no aortic stenosis and/or mitral insufficiency We will monitor PRP and magnesium (2) Pickwickian syndrome: Has obesity and hypoventilation syndrome Known sleep apnea with very noncompliant with BiPAP Will need pulmonary evaluation as an outpatient/inpatient depending on his improvement Strongly advised to use BiPAP while in the hospital Remains drowsy and sleepy in the hospital: ABG showed a CO2 of 57 with low PO2 of 55 (3) Diabetes: Has type 2 diabetes on insulin Hyperglycemia with uncontrolled diabetes Hemoglobin A1c is high at 10.6 Glycemic pharmacy consult (4) Acute hyperglycemia: As above Bilateral leg edema with lymphedema Chronic skin changes No evidence of acute cellulitis DVT prophylaxis Subcu heparin CODE STATUS Full Admission and Anticipated Discharge Date Admission Date: April 22, 2020 Subjective The patient was seen and examined in ICU He was admitted with increasing shortness of breath and chest pressure Still complains to have moderate shortness of breath at rest Denies any chest pain and/or palpitation Review of Systems Review of Systems: All systems reviewed and are unremarkable except as noted below Constitutional: + fatigue, + weight gain and + daytime sleepiness Respiratory: + dyspnea (At rest and with exertion) Cardiovascular: no chest pain and no palpitations Gastrointestinal: + bloating; no abdominal pain Physical Exam Physical Exam: Lying in a recliner with moderate shortness of breath at rest Constitutional: well developed, well nourished, + acute distress (Moderate shortness of breath at rest) and + morbidly obese Eyes: PERRL, conjunctivae normal, anicteric sclerae ENMT: external ear and nose normal, oropharynx normal Neck: trachea midline, no thyromegaly Respiratory: + respiratory distress (Moderate shortness of breath) and + uses accessory muscles Auscultation: + diminished lung sounds and + crackles (Minimal crackles at the bases) Cardiovascular: Rate/Rhythm: regular rate and regular rhythm Heart Sounds: no murmur Extremities: + edema (Chronic bilateral leg edema) Gastrointestinal (Abdomen): Inspection/Auscultation: + abdomen distended and normal bowel sounds Percussion/Palpation: abdomen soft; abdomen nontender Musculoskeletal: No acute arthritis involving any joints Skin: Chronic ischemic changes involving the legs Neurologic: moves all extremities; no focal motor deficits Alert, awake and oriented x3. Drowsiness with sleepiness Results & Data Results & Data ([facility]) Vital Signs (Past 12 Hours) Vital Signs Temp Pulse Pulse Resp BP Pulse Ox 04/22/20 15:47 36.4 C L 72 20 129/79 92 04/22/20 11:54 36.8 C 74 22 154/62 H 98 04/22/20 08:02 37.2 C 84 15 139/70 90 04/22/20 08:00 72 04/22/20 04:38 36.6 C 82 16 153/68 H 93 Laboratory Results Short CBC 04/22/20 04/22/20 Range/Units 01:08 07:08 WBC 7.26 7.29 (4.8-10.8) K/uL Hgb 13.7 L 13.4 L (14.0-18.0) g/dL Hct 42.0 42.4 (42-52) % Plt Count 255 244 (130-400) K/uL BMP 04/22/20 04/22/20 01:08 07:08 Sodium 135 L 134 L Potassium 4.0 3.5 Chloride 94 L 94 L Carbon Dioxide 34 H 34 H BUN 17 18 Creatinine 1.34 1.12 Glucose 413 H* 319 H* Calcium 8.1 L 8.3 L Cardiac Enzymes 04/22/20 04/22/20 Range/Units 01:08 07:08 Troponin I < 0.015 < 0.015 (0-0.045) ng/ml Liver Function 04/22/20 Range/Units 01:08 Total Bilirubin 0.3 (0.2-1) mg/dl Direct Bilirubin < 0.1 (0-0.2) mg/dl AST 13 L (15-37) U/L ALT 25 (12-78) U/L Alkaline Phosphatase 133 H (45-117) U/L Albumin 3.1 L (3.4-5.0) gm/dl Urine 04/22/20 Range/Units 01:35 Urine Color Yellow Urine Appearance Clear (Clear) Urine pH 5.5 (4.5-7.5) Ur Specific [place] 1.021 (1.000-1.030) Urine Protein Negative (Negative) Urine Glucose (UA) 3+ H (Negative) Medications Administered Current Inpatient Medications Acetaminophen (Tylenol) 650 mg PO Q4H PRN PRN Reason: Pain or Fever Stop: 05/22/20 04:38 Albuterol (Ventolin Hfa) 2 puffs INH Q4 PRN PRN Reason: Shortness Of Breath Stop: 05/22/20 04:38 Aspirin (Ecotrin Ectab) 81 mg PO DAILY [facility] Stop: 05/22/20 08:59 Last Admin: 04/22/20 08:41 Dose: 81 mg Documented by: Atorvastatin Calcium (Lipitor) 40 mg PO HS [facility] Stop: 05/22/20 20:59 Fluticasone Propionate (Flonase) 2 sprays NA DAILY PRN PRN Reason: Nasal Congestion Stop: 05/22/20 04:38 Heparin Sodium (Porcine) (Heparin Sodium (Porcine)) 5,000 units SQ Q12 [facility] Stop: 05/22/20 08:59 Last Admin: 04/22/20 08:41 Dose: 5,000 units Documented by: Furosemide 80 mg/ Syringe 8 mls @ 4 mls/min IV TID [facility] Stop: 05/22/20 13:59 Last Admin: 04/22/20 12:41 Dose: 4 mls/min Documented by: Insulin Aspart (Novolog Flexpen) 0 units SC ACHS [facility] Stop: 05/22/20 07:29 Last Admin: 04/22/20 12:40 Dose: 16 units Documented by: Insulin Glargine (Lantus Solostar Pen) 40 units SQ HS [facility] Stop: 05/22/20 20:59 Metolazone (Zaroxolyn) 2.5 mg PO TuTh@0900 [facility] Stop: 05/22/20 08:59 Last Admin: 04/22/20 08:40 Dose: 2.5 mg Documented by: Miscellaneous (Order Awaiting Action) 1 ea N/A QS [facility] Stop: 05/22/20 07:59 Last Admin: 04/22/20 12:41 Dose: Not Given Documented by: Nitroglycerin (Nitrostat) 0.4 mg SL UD PRN PRN Reason: Chest Pain Stop: 05/22/20 04:38 Ondansetron HCl (Zofran) 4 mg IV Q6H PRN PRN Reason: Nausea Stop: 05/22/20 04:38 Oxycodone/Acetaminophen (Percocet 5mg/325mg) 1 tab PO Q12 PRN PRN Reason: Pain Stop: 05/06/20 04:38 Last Admin: 04/22/20 11:18 Dose: 1 tab Documented by: Pantoprazole Sodium (Protonix) 40 mg PO HS [facility] Stop: 05/22/20 20:59 Polyethylene Glycol (Miralax Powder Packet) 17 gm PO DAILY PRN PRN Reason: Constipation Stop: 05/22/20 04:38 Potassium Chloride (Klor-Con M20) 20 meq PO HS [facility] Stop: 05/22/20 20:59 Sennosides (Senokot) 17.2 mg PO DAILY PRN PRN Reason: Constipation Stop: 05/22/20 04:38 Sertraline HCl (Zoloft) 50 mg PO DAILY [facility] Stop: 05/22/20 08:59 Last Admin: 04/22/20 08:41 Dose: 50 mg Documented by: Spironolactone (Aldactone) 50 mg PO BID [facility] Stop: 05/22/20 08:59 Last Admin: 04/22/20 08:41 Dose: 50 mg Documented by: Umeclidinium [place] (Incruse Ellipta) 1 puffs INH DAILY [facility] Stop: 05/22/20 08:59 Last Admin: 04/22/20 08:41 Dose: 1 puffs Documented by: Varenicline (Chantix) 1 mg PO BID [facility] Stop: 05/22/20 08:59 Last Admin: 04/22/20 08:40 Dose: 1 mg Documented by: Vitamin D (Vitamin D3) 2,000 units PO DAILY [facility] Stop: 05/22/20 08:59 Last Admin: 04/22/20 08:41 Dose: 2,000 units Documented by:
[2020-04-22] MEDS: POTASSIUM CHLORIDE 20 MEQ TABCR PO SCH (20:42)
[2020-04-22] MEDS: ATORVASTATIN 40 MG TAB PO SCH (20:44)
[2020-04-22] MEDS: PANTOprazole 40 MG TAB PO SCH (20:44)
[2020-04-22] MEDS ORDERED: INSULIN GLARGINE SOLOSTAR 100 UNITS/ML 3 ML PEN SQ SCH (21:00)
[2020-04-23] MEDS: ACETAMINOPHEN 325 MG TAB PO PRN ×2 (02:47→12:53)
[2020-04-23 05:39] LABS: Basophils # (auto) 0.04 K/uL (0-0.2); Basophils % (auto) 0.5 %; Eosinophils # (auto) 0.09 K/uL (0-0.5); Eosinophils % (auto) 1.1 %; Hematocrit (blood only) 40.7 % (42-52); Hemoglobin 13.3 g/dL (14.0-18.0); Immature Granulocytes # (auto) 0.01 K/uL (0.00-0.02); Immature Granulocytes % (auto) 0.1 %; Lymphocytes # (auto) 1.26 K/uL (1.2-3.4); Lymphocytes % (auto) 15.9 %; Mean Corpuscular Hemoglobin 29.8 pg (25-34); Mean Corpuscular Hgb Conc 32.7 g/dL (32-36); Mean Corpuscular Volume 91.3 fL (80-100); Mean Platelet Volume 11.1 fL (7.4-10.4); Monocytes # (auto) 0.44 K/uL (0.11-0.59); Monocytes % (auto) 5.6 %; Neutrophils # (auto) 6.06 K/uL (1.4-6.5); Neutrophils % (auto) 76.8 %; Platelet Count 234 K/uL (130-400); RDW Coefficient of Variation 14.5 % (11.5-14.5); RDW Standard Deviation 48.4 fL (36.4-46.3); Red Blood Count 4.46 M/uL (4.7-6.1)
[2020-04-23 06:12] LABS: Calcium 8.8 mg/dl (8.5-10.1); Creatinine Clr Calc Pharmacy 157.1 ml/min; Est GFR (African American) 98.7; Est GFR (Non-African American) 85.1; Magnesium 1.7 mg/dl (1.8-2.4); Potassium 3.8 mmol/L (3.5-5.1)
[2020-04-23] MEDS: FUROSEMIDE 80 MG in SYRINGE 0 ML IV SCH ×3 (07:58→21:26)
[2020-04-23] MEDS: OXYCODONE/ACETAMINOPHEN 5mg/325mg TAB PO PRN ×2 (07:58→21:41)
[2020-04-23] MEDS: ASPIRIN 81 MG ECTAB PO SCH (07:58)
[2020-04-23] MEDS: SERTRALINE HCL 50 MG TABLET PO SCH (07:58)
[2020-04-23] MEDS: CHOLECALCIFEROL 1,000 UNITS 25 MCG TAB PO SCH (07:58)
[2020-04-23] MEDS: HEPARIN SOD 5,000 UNIT/0.5 ML VIAL SQ SCH ×2 (07:58→21:27)
[2020-04-23] MEDS: UMECLIDINIUM BROMIDE 62.5MCG/BLISTER 7 PUFFS/INHALER INH SCH (07:59)
[2020-04-23] MEDS: SPIRONOLACTONE 25 MG TAB PO SCH ×2 (07:59→21:26)
[2020-04-23] MEDS: VARENICLINE 1 MG TAB PO SCH ×2 (07:59→21:26)
[2020-04-23] MEDS: TESTOSTERONE~ORDER AWAITING ACTION SCH ×2 (07:59→15:21)
[2020-04-23] MEDS: INSULIN ASPART 100 UNITS/ML 3 ML PEN SC SCH ×4 (08:04→21:27)
[2020-04-23] MEDS ORDERED: MAGNESIUM SULFATE / D5W 1 GM/100 ML BAG IV ONE (09:00)
[2020-04-23] MEDS ORDERED: PHARMACY GLYCEMIC MGMT CONSULT PRN (09:36)
[2020-04-23] MEDS: INSULIN GLARGINE SOLOSTAR 100 UNITS/ML 3 ML PEN SQ SCH ×2 (09:47→21:28)
--- NOTE | 2020-04-23 09:53 | Pharmacy Report ---
Glycemic Control Consultation - Date of Service April 23, 2020 - Scope Scope: Glycemic Pharmacist consulted for glycemic control and to write orders per [facility] inpatient glycemic control protocol. - Objective Weight: 208.1 kg Accjarettecks BSG (last 24hrs): 04/22/20 04/22/20 04/22/20 11:18 11:19 16:17 Glucose POC Glucose 383 H* 386 H* 287 H 04/22/20 04/23/20 04/23/20 20:01 05:22 07:53 Glucose 282 H POC Glucose 243 H 271 H Laboratory Data (last 24hrs): 04/23/20 05:22 Potassium 3.8 Carbon Dioxide 33 H Anion Gap 6.0 Creatinine 1.01 Est Cr Clr Drug Dosing 157.1 HbA1c: Hemoglobin A1c 10.6 % (4.5-5.6) H 04/22/20 07:08 - Recent Pertinent Medications Outpatient Anti-diabetic Regimen: * Lantus 40 units HS * Jardiance 10 mg daily * Trulicity 1.5 mg weekly * metformin 500 mg daily * A1c = 10.6 % 04/22/2020 The patient is currently receiving: * Basal insulin: Lantus 40 units every 24 hours (at bedtime) * Correctional Insulin: Novolog Correction per scale ACHS Goal Range: Low 110 mg/dL - High 140 mg/dL Correction Factor: 15 mg/dL/unit * Prandial insulin: Per carb ratio of 1 unit per 7 grams CHO consumed * Oral Agents: Risk Factors for Insulin Resistance: * Diet: T2DM - Assessment & Plan Assessment & Plan: ASSESSMENT: * Mr Sanchez is a 54 y/o M with a PMH of DM with a high hbA1C (currently titrating insulin upwards as an outpatient). He was previously admitted mid- late March. Patient currently admitted with ADHF receiving IV diuretics. * On admission and yesterday 04/23/2020 patient's BSGs were elevated in the 300- 400 mg/dL range. This morning, fasting BSG was 271 mg/dL. Will restart previous regimen that was obtaining BSGs < 200 mg/dL. Start Lantus 40 units BID with a now dose. Tighten Novolog to CF of 10 and CR of 4. * Pt is maintained on oral antidiabetic agents as an outpatient * Oral agents are not recommended for inpatient use d/t drug interactions, changing PO intake, and difficulty titrating for acute hyper/hypoglycemia. ADA recommends re-initiating outpatient oral agents 1-2 days prior to discharge if/when appropriate if they were held on admission. * ADA & AACE recommend a goal blood sugar range 140-180 mg/dl for the majority of critically ill & non-critically ill patients. However, more stringent targets may be selected in individual cases. Will utilize more stringent goal of 110-140mg/dl based on patient age & comorbidities. Additionally, tighter glycemic control is warranted to facilitate wound/infection healing. PLAN FOR INPATIENT GLYCEMIC CONTROL: * Holding outpatient oral diabetes medications * Basal insulin * Lantus 40 units SQ BID * Bolus insulin * NovoLog per scale ACHS or Q6hrs while NPO * Goal Range: Low 110 mg/dL - High 140 mg/dL * Correction Factor: 10 mg/dL/unit * Nutritional / Prandial insulin per carb ratio of 1 unit per 4 grams CHO consumed * Please note that the plan above was derived based on current level of insulin resistance and hospital stress. These recommendations are appropriate for inpatient admission only. Plan of care upon discharge will need to be reassessed to avoid potential outpatient hypo/hyperglycemia. Thank you.
--- NOTE | 2020-04-23 12:13 | Cardiology Progress Note ---
Date of Service April 23, 2020 Assessment & Plan (1) Pickwickian syndrome: Patient admitted with massive volume overload secondary to pickwickian syndrome hypoventilation. Down 3 kg with diuresis since yesterday. Unfortunatley no measurements of outputs recorded. Monitor I+O's. Continue IV diureitcs with furosemide 80 TID, metolazone and spironoalctone MOnitor electrolytes, renal fucntion and replace as needed Patient has preserved LV systolic function on echocardiogram and no significant valvular disease with current issues being predominantly driven by underlying severe respiratory issues. Overall weight gain of nearly 10 kg in the past 2 weeks but overall 30 kg since last dry weight Patient poorly compliant with BiPAP at home but agreeable to use in hospital Oxygen and BiPAP supplementation Consider pulmonology opinion Consider future tracheostomy Case discussed with Dr. Jones. Will follow. (2) Fluid overload: (3) Morbid obesity: (4) SIDRA treated with BiPAP: (5) Acute diastolic congestive heart failure: Supervising Physician Co-Signing Physician Notes Patient seen and examined at the bedside. Denies chest pain or shortness of breath. Modest diuresis recorded. Voices frustration with inability to lose weight. PE: VSS, Gen: NAD, morbid obesity. Heart: Regular, normal S1-S2, no murmur appreciated. Lungs: Diminished breath sounds at the bases bilateral. No rhonchi, rales, wheeze. Extremities: 2-3+ bilateral lower extremity edema with stasis changes. A/P: Agree with above PA-C history, physical exam, assessment and plan. Continue diuretic therapy. Monitor fluid balance, daily weight, GFR, and electrolytes. Discussed potential referral for gastric bypass. Patient declines at this time. Subjective Patient sleeping in chair, without BIPAP. Difficult to awaken at first. He reports his SOB has mildly improved. Urinating frequently, unfortunately no measurements. Weight down possible 3 kg since admission. Diffuse edema remains. No chest pain reported. No dizziness. Review of Systems Review of Systems: All systems reviewed & are unremarkable except as noted in HPI & below Physical Exam Constitutional: + morbidly obese Eyes: PERRL, conjunctivae normal, anicteric sclerae ENMT: external ear and nose normal, oropharynx normal Respiratory: Auscultation: + diminished lung sounds Cardiovascular: Rate/Rhythm: regular rate and regular rhythm (distant heart sounds) Extremities: + edema (3+ diffuse) Neurologic: PERRL, EOMI, accommodation nl, no face palsy, no dysarthria Results & Data Vital Signs (Past 12 Hours) Vital Signs Temp Pulse Pulse Resp BP BP Pulse Ox 04/23/20 11:10 36.6 C 77 20 137/77 95 04/23/20 07:15 83 04/23/20 07:13 36.3 C L 88 18 166/74 H 91 04/23/20 03:48 36.8 C 84 18 154/84 H 92 04/23/20 02:48 36.3 C L 93 H 18 152/78 H 94 04/23/20 01:00 36.7 C 84 81 18 130/69 94 (1) Fluid overload Hypervolemia type: other Qualified Code(s): E87.79 - Other fluid overload
--- NOTE | 2020-04-23 18:37 | Hospitalist Progress Note ---
Date of Service April 23, 2020 Assessment & Plan (1) Acute diastolic congestive heart failure: Acute on chronic diastolic heart failure Volume overload Worsened secondary to pickwickian syndrome CXR:Congestive heart failure Continue IV diuretics Monitor volume status, I's and O's, electrolytes, renal function Appreciate Cardiology input Hypomagnesemia Replete electrolytes as needed (2) Pickwickian syndrome: Obesity hypoventilation syndrome H/O sleep apnea--noncompliant with BiPAP Will need Pulm eval as outpatient Counseled him to use BiPAP regularly (3) Diabetes: DM Type II Hyperglycemia with uncontrolled diabetes Hemoglobin A1c is high at 10.6 Glycemic pharmacy consult Continue Insulin therapy Monitor BGs (4) Acute hyperglycemia: As above Bilateral leg edema with lymphedema Chronic skin changes No evidence of acute cellulitis DVT Px: Heparin SQ CODE STATUS Full Code Admission and Anticipated Discharge Date Admission Date: April 22, 2020 Subjective Patient is seen and examined at bedside States having headache, mild tooth ache Denies chest pain, shortness of breath, dizziness, nausea, abdominal pain Diuresing on IV diuretics Review of Systems Review of Systems: All systems reviewed & are unremarkable except as noted in HPI & below Physical Exam Physical Exam: GENERAL: Morbidly obese, no acute distress. Head: normocephalic, Atraumatic Eyes: normal inspection, EOMI Neck: supple, Trachea midline CARDIOVASCULAR: S1, S2, regular rate and rhythm, no murmur, no gallop. RESPIRATORY SYSTEM: Decreased Breath sounds, CTA, No accessory muscle use. ABDOMEN: Soft, non tender, Obese, bowel sounds present CENTRAL NERVOUS SYSTEM: AAOX3, Grossly no focal deficits EXTREMITIES: B/L LE chronic venous stasis skin changes, chronic lymphedema Results & Data Results & Data ([facility]) Vital Signs (Past 12 Hours) Vital Signs Temp Pulse Pulse Resp BP BP Pulse Ox 04/23/20 15:47 36.4 C L 93 H 18 164/77 H 99 04/23/20 15:30 81 04/23/20 11:10 36.6 C 77 20 137/77 95 04/23/20 07:15 83 04/23/20 07:13 36.3 C L 88 18 166/74 H 91 Laboratory Results Short CBC 04/23/20 Range/Units 05:22 WBC 7.90 (4.8-10.8) K/uL Hgb 13.3 L (14.0-18.0) g/dL Hct 40.7 L (42-52) % Plt Count 234 (130-400) K/uL BMP 04/23/20 05:22 Sodium 132 L Potassium 3.8 Chloride 93 L Carbon Dioxide 33 H BUN 21 H Creatinine 1.01 Glucose 282 H Calcium 8.8
[2020-04-23] MEDS: ATORVASTATIN 40 MG TAB PO SCH (21:26)
[2020-04-23] MEDS: POTASSIUM CHLORIDE 20 MEQ TABCR PO SCH (21:26)
[2020-04-23] MEDS: PANTOprazole 40 MG TAB PO SCH (21:26)
[2020-04-23] MEDS: TROLAMINE SALICYLATE 10% CRM 255 APPLN/85 GM TUBE EXT PRN (23:02)
[2020-04-23 23:04] LABS: Partial Thromboplastin Ratio 0.8
[2020-04-24] MEDS: TESTOSTERONE~ORDER AWAITING ACTION SCH ×4 (00:19→23:04)
[2020-04-24] MEDS: HEPARIN SOD 5,000 UNIT/0.5 ML VIAL SQ SCH ×3 (05:43→21:09)
[2020-04-24] MEDS: INSULIN ASPART 100 UNITS/ML 3 ML PEN SC SCH ×4 (08:33→21:07)
[2020-04-24] MEDS: CHOLECALCIFEROL 1,000 UNITS 25 MCG TAB PO SCH (08:35)
[2020-04-24] MEDS: FUROSEMIDE 80 MG in SYRINGE 0 ML IV SCH ×3 (08:35→21:07)
[2020-04-24] MEDS: VARENICLINE 1 MG TAB PO SCH ×2 (08:35→21:04)
[2020-04-24] MEDS: SPIRONOLACTONE 25 MG TAB PO SCH ×2 (08:35→21:04)
[2020-04-24] MEDS: metOLazone 2.5 MG TABLET PO SCH (08:35)
[2020-04-24] MEDS: ASPIRIN 81 MG ECTAB PO SCH (08:35)
[2020-04-24] MEDS: SERTRALINE HCL 50 MG TABLET PO SCH (08:35)
[2020-04-24] MEDS: INSULIN GLARGINE SOLOSTAR 100 UNITS/ML 3 ML PEN SQ SCH (08:36)
[2020-04-24] MEDS: UMECLIDINIUM BROMIDE 62.5MCG/BLISTER 7 PUFFS/INHALER INH SCH (08:37)
[2020-04-24 09:38] LABS: BUN Creatinine Ratio 18.3 (10-20); Calcium 9.2 mg/dl (8.5-10.1); Creatinine Clr Calc Pharmacy 146.5 ml/min; Est GFR (Non-African American) 79.4; Magnesium 2.1 mg/dl (1.8-2.4); Potassium 3.3 mmol/L (3.5-5.1)
--- NOTE | 2020-04-24 10:24 | Pharmacy Report ---
Glycemic Control Progress Note - Date of Service April 24, 2020 - Scope Glycemic Pharmacist consulted for glycemic control to write orders per [facility] inpatient glycemic control protocol. - Objective Accuchecks BSG(last 24 hours):: 04/23/20 04/23/20 04/23/20 11:43 16:40 20:44 Glucose POC Glucose 269 H 279 H 229 H 04/24/20 04/24/20 07:38 08:46 Glucose 253 H POC Glucose 206 H HbA1c:: Hemoglobin A1c 10.6 % (4.5-5.6) H 04/22/20 07:08 - Recent Pertinent Medications The patient is currently receiving: * Basal insulin: Lantus 40 units every 12 hours * Correctional Insulin: Novolog Correction per scale ACHS Goal Range: Low 110 mg/dL - High 140 mg/dL Correction Factor: 10 mg/dL/unit * Prandial insulin: Per carb ratio of 1 unit per 4 grams CHO consumed - Outpatient Anti-Diabetic Meds Lantus 40 units Trulicity 1.5 mg weekly Jardiance 10 mg daily metformin 500 mg daily - Assessment & Plan ASSESSMENT: * See progress note from 04/23/2020 for more background info, in short: * Pt receiving SQ basal bolus insulin regimen for hyperglycemia secondary to baseline DM (outpatient regimen on hold). * Patient is currently receiving an average of 153 units of insulin per day * 80 units of basal insulin * 73 units of prandial/correctional insulin * BSGs ranging 229 - 279 mg/dl over the past 24hrs * Changes needed to insulin regimen: * AM Fasting BSG = 206 mg/dl. This is above goal range for patient based on inpatient targets and co-morbidities. The fasting today is almost 70 points lower than yesterday (206 mg/dL vs 271 mg/dL). Continue current basal with option for 50 units if BSG > 160 mg/dL. * Post-prandial BSGs are steady. Continue current regimen. Consider tightening CR if lunch trends upwards. * Total daily dose = ~175 units. Follow needs closely. PLAN FOR INPATIENT GLYCEMIC CONTROL: * Continuing Lantus 40 units SQ BID (50 units if BSG > 160 mg/dL) * Continuing correction factor of 10 mg/dl/unit * Continuing carb ratio of 1 unit per 4 grams CHO consumed * Continuing goal range of Low 110 mg/dL - High 140 mg/dL * Please note that the plan above was derived based on current level of insulin resistance and hospital stress. These recommendations are appropriate for inpatient admission only. Plan of care upon discharge will need to be reassessed to avoid potential outpatient hypo/hyperglycemia. Thank you.
[2020-04-24] MEDS ORDERED: POTASSIUM CHLORIDE 20 MEQ TABCR PO ONE ×2 (12:00→14:00)
[2020-04-24] MEDS: OXYCODONE/ACETAMINOPHEN 5mg/325mg TAB PO PRN (13:34)
[2020-04-24] MEDS: TROLAMINE SALICYLATE 10% CRM 255 APPLN/85 GM TUBE EXT PRN (14:29)
--- NOTE | 2020-04-24 16:42 | Cardiology Progress Note ---
Date of Service April 24, 2020 Assessment & Plan (1) Pickwickian syndrome: Patient admitted with massive volume overload secondary to pickwickian syndrome hypoventilation. Patient diuresing well over the last 24-48 hours. Diuresed nearly 7-8 L and 8 Kg since admission. Continue IV diureitcs with furosemide 80 TID, metolazone and spironolactone. supplement potassium this morning. Renal funciton stable. Patient has preserved LV systolic function on echocardiogram and no significant valvular disease with current issues being predominantly driven by underlying severe respiratory issues. Patient poorly compliant with BiPAP at home. He needs to have this provided during this admission if possible. Oxygen and BiPAP supplementation Consider pulmonology opinion Consider future tracheostomy Case discussed with Dr. Jones. Will follow. (2) Fluid overload: (3) Morbid obesity: (4) SIDRA treated with BiPAP: (5) Acute diastolic congestive heart failure: Supervising Physician Co-Signing Physician Notes Patient seen and examined at the bedside. Denies chest pain or shortness of breath. Significant diuresis, 4.1 L over the past 24 hours. Weight is down 8 pounds. Respiratory status unchanged. Asymptomatic 3.2-second pause occurred during sleep last night. Patient has not been wearing BiPAP since admission. He has been unable to bring in his BiPAP machine from home and refuses to use the machine here in the hospital. PE: VSS, Gen: NAD, morbid obesity. Heart: Regular, normal S1-S2, no murmur appreciated. Lungs: Diminished breath sounds at the bases bilateral. No rhonchi, rales, wheeze. Extremities: 2-3+ bilateral lower extremity edema with stasis changes. A/P: Agree with above PA-C history, physical exam, assessment and plan. Continue diuretic therapy, IV furosemide 80 mg 3 times daily, metolazone 2.5 mg on Tuesdays and , and Aldactone 50 mg twice daily. Monitor fluid balance, daily weight, GFR, and electrolytes. Discussed need for significant weight loss. Discussed potential referral for gastric bypass and possibly tracheostomy in the future. Patient declines at this time. Subjective Patient sitting in chair, sleeping. Awakens easily today. Reports his SOB has improved from yesterday. still appears massively volume overloaded. He denies chest pain. He is not wearing BIpap. He had 3.5 second pause in the early AM while asleep, likely due to untreated SIDRA. No recurrent arrhythmias or pauses. Review of Systems Review of Systems: All systems reviewed & are unremarkable except as noted in HPI & below Physical Exam Constitutional: + morbidly obese Eyes: PERRL, conjunctivae normal, anicteric sclerae ENMT: external ear and nose normal, oropharynx normal Respiratory: Auscultation: + diminished lung sounds Cardiovascular: Rate/Rhythm: regular rate and regular rhythm (distant heart sounds) Extremities: + edema (3+ diffuse) Neurologic: PERRL, EOMI, accommodation nl, no face palsy, no dysarthria Results & Data Vital Signs (Past 12 Hours) Vital Signs Temp Pulse Resp BP BP Pulse Ox 04/24/20 15:59 36.3 C L 62 18 141/72 H 98 04/24/20 11:29 36.6 C 55 L 18 139/79 95 04/24/20 08:00 36.4 C L 82 18 128/79 90 04/24/20 04:39 36.7 C 65 20 125/74 96 Laboratory Results 04/24/20 04/24/20 04/24/20 Range/Units 12:01 08:46 07:38 APTT (21.0-31.0) Seconds PTT Ratio Sodium 134 L (136-145) mmol/L Potassium 3.3 L (3.5-5.1) mmol/L Chloride 93 L (98-107) mmol/L Carbon Dioxide 33 H (21-32) mmol/L Anion Gap 8.0 (3-11) BUN 20 H (7-18) mg/dl Creatinine 1.07 (0.6-1.4) mg/dl Est Cr Clr Drug Dosing 146.5 ml/min Est GFR ( Amer) 92.0 Est GFR (Non-Af Amer) 79.4 BUN/Creatinine Ratio 18.3 (10-20) Glucose 253 H (70-99) mg/dl POC Glucose 234 H 206 H (70-99) mg/dl Calcium 9.2 (8.5-10.1) mg/dl Magnesium 2.1 (1.8-2.4) mg/dl Troponin I (0-0.045) ng/ml 04/23/20 04/23/20 04/23/20 Range/Units 22:42 22:42 20:44 APTT 22.0 (21.0-31.0) Seconds PTT Ratio 0.8 Sodium (136-145) mmol/L Potassium (3.5-5.1) mmol/L Chloride (98-107) mmol/L Carbon Dioxide (21-32) mmol/L Anion Gap (3-11) BUN (7-18) mg/dl Creatinine (0.6-1.4) mg/dl Est Cr Clr Drug Dosing ml/min Est GFR ( Amer) Est GFR (Non-Af Amer) BUN/Creatinine Ratio (10-20) Glucose (70-99) mg/dl POC Glucose 229 H (70-99) mg/dl Calcium (8.5-10.1) mg/dl Magnesium (1.8-2.4) mg/dl Troponin I < 0.015 (0-0.045) ng/ml 04/23/20 Range/Units 16:40 APTT (21.0-31.0) Seconds PTT Ratio Sodium (136-145) mmol/L Potassium (3.5-5.1) mmol/L Chloride (98-107) mmol/L Carbon Dioxide (21-32) mmol/L Anion Gap (3-11) BUN (7-18) mg/dl Creatinine (0.6-1.4) mg/dl Est Cr Clr Drug Dosing ml/min Est GFR ( Amer) Est GFR (Non-Af Amer) BUN/Creatinine Ratio (10-20) Glucose (70-99) mg/dl POC Glucose 279 H (70-99) mg/dl Calcium (8.5-10.1) mg/dl Magnesium (1.8-2.4) mg/dl Troponin I (0-0.045) ng/ml (1) Fluid overload Hypervolemia type: other Qualified Code(s): E87.79 - Other fluid overload
--- NOTE | 2020-04-24 16:55 | Electrocardiogram Report ---
Test Reason : Blood Pressure : / mmHG Vent. Rate : 079 BPM Atrial Rate : 079 BPM P-R Int : 170 ms QRS Dur : 176 ms QT Int : 440 ms P-R-T Axes : 050 -24 012 degrees QTc Int : 504 ms Normal sinus rhythm Right bundle branch block Moderate voltage criteria for LVH, may be normal variant Abnormal ECG When compared with ECG of 22-APR-2020 00:03, Criteria for Septal infarct are no longer Present No significant change was found Confirmed by Juan Carmichael [id number] on 04/24/2020 4:54:33 PM Referred By: Parag Alston Confirmed By:Juan Carmichael
[2020-04-24] MEDS: ACETAMINOPHEN 325 MG TAB PO PRN (17:27)
--- NOTE | 2020-04-24 18:18 | Hospitalist Progress Note ---
Date of Service April 24, 2020 Assessment & Plan (1) Acute diastolic congestive heart failure: Acute on chronic diastolic heart failure Volume overload Worsened secondary to pickwickian syndrome CXR:Congestive heart failure Continue IV diuretics Monitor volume status, I's and O's, electrolytes, renal function Appreciate Cardiology input Weight down by 8 Kgs since admission Diuresing well Hypomagnesemia Replete electrolytes as needed (2) Pickwickian syndrome: Obesity hypoventilation syndrome H/O sleep apnea--noncompliant with BiPAP Will need Pulm eval as outpatient Counseled him to use BiPAP regularly (3) Diabetes: DM Type II Hyperglycemia with uncontrolled diabetes Hemoglobin A1c is high at 10.6 Glycemic pharmacy consult Continue Insulin therapy Monitor BGs (4) Acute hyperglycemia: As above Bilateral leg edema with lymphedema Chronic skin changes No evidence of acute cellulitis DVT Px: Heparin SQ CODE STATUS Full Code Admission and Anticipated Discharge Date Admission Date: April 23, 2020 Subjective Patient is seen and examined at bedside No new complaints Diuresing well on IV diuretics Toothache improved as per patient today Still has mild headache Denies chest pain, SOB, dizziness, nausea, abdominal pain Review of Systems Review of Systems: All systems reviewed & are unremarkable except as noted in HPI & below Physical Exam Physical Exam: GENERAL: Morbidly obese, no acute distress. Head: normocephalic, Atraumatic Eyes: normal inspection, EOMI Neck: supple, Trachea midline CARDIOVASCULAR: S1, S2, regular rate and rhythm, no murmur, no gallop. RESPIRATORY SYSTEM: Decreased Breath sounds, CTA, No accessory muscle use. ABDOMEN: Soft, non tender, Obese, bowel sounds present CENTRAL NERVOUS SYSTEM: AAOX3, Grossly no focal deficits EXTREMITIES: B/L LE chronic venous stasis skin changes, chronic lymphedema Results & Data Results & Data ([facility]) Vital Signs (Past 12 Hours) Vital Signs Temp Pulse Pulse Resp BP BP Pulse Ox 04/24/20 16:00 73 04/24/20 15:59 36.3 C L 62 18 141/72 H 98 04/24/20 11:29 36.6 C 55 L 18 139/79 95 04/24/20 08:00 36.4 C L 82 18 128/79 90 Laboratory Results [facility] 04/24/20 08:46 Sodium 134 L Potassium 3.3 L Chloride 93 L Carbon Dioxide 33 H BUN 20 H Creatinine 1.07 Glucose 253 H Calcium 9.2 Cardiac Enzymes 04/23/20 Range/Units 22:42 Troponin I < 0.015 (0-0.045) ng/ml
[2020-04-24] MEDS ORDERED: INSULIN GLARGINE SOLOSTAR 100 UNITS/ML 3 ML PEN SQ SCH (21:00)
[2020-04-24] MEDS: ATORVASTATIN 40 MG TAB PO SCH (21:07)
[2020-04-24] MEDS: PANTOprazole 40 MG TAB PO SCH (21:11)
[2020-04-24] MEDS: POTASSIUM CHLORIDE 20 MEQ TABCR PO SCH (22:08)
[2020-04-25] MEDS: HEPARIN SOD 5,000 UNIT/0.5 ML VIAL SQ SCH ×3 (05:21→20:42)
[2020-04-25] MEDS: INSULIN ASPART 100 UNITS/ML 3 ML PEN SC SCH ×4 (08:22→20:45)
[2020-04-25] MEDS: TESTOSTERONE~ORDER AWAITING ACTION SCH ×3 (08:23→22:12)
[2020-04-25] MEDS: INSULIN GLARGINE SOLOSTAR 100 UNITS/ML 3 ML PEN SQ SCH ×2 (08:24→20:44)
[2020-04-25] MEDS: UMECLIDINIUM BROMIDE 62.5MCG/BLISTER 7 PUFFS/INHALER INH SCH (08:27)
[2020-04-25] MEDS: VARENICLINE 1 MG TAB PO SCH ×2 (08:27→20:41)
[2020-04-25] MEDS: FUROSEMIDE 80 MG in SYRINGE 0 ML IV SCH ×3 (08:27→20:41)
[2020-04-25] MEDS: SPIRONOLACTONE 25 MG TAB PO SCH ×2 (08:27→20:43)
[2020-04-25] MEDS: ASPIRIN 81 MG ECTAB PO SCH (08:27)
[2020-04-25] MEDS: CHOLECALCIFEROL 1,000 UNITS 25 MCG TAB PO SCH (08:28)
[2020-04-25] MEDS: SERTRALINE HCL 50 MG TABLET PO SCH (08:28)
--- NOTE | 2020-04-25 08:47 | Cardiology Progress Note ---
Date of Service April 25, 2020 Assessment & Plan (1) Pickwickian syndrome: Patient admitted with massive volume overload secondary to pickwickian syndrome hypoventilation. Patient diuresing well over the last 24-48 hours. Diuresed nearly 10 Kg since admission. Continue IV diureitcs with furosemide 80 TID, metolazone and spironolactone. supplement potassium this morning. Renal funciton stable Patient has preserved LV systolic function on echocardiogram and no significant valvular disease with current issues being predominantly driven by underlying severe respiratory issues. Patient poorly compliant with BiPAP at home. He needs to have this provided during this admission if possible. Oxygen and BiPAP supplementation Vasquez potassium supplement ordered. Will begin to make arrangements with high risk obesity clinic ultimate goals substantial weight loss in addition to fluid management. (2) Fluid overload: (3) Morbid obesity: (4) SIDRA treated with BiPAP: (5) Acute diastolic congestive heart failure: Subjective Patient was seen and examined, chart, medications, telemetry reviewed.Overall feeling improved today continues to diurese. Weight down approximately 10 kg from admission will total weight gain greater than 30 kg. Had leg cramping overnight. Physical Exam Constitutional: + morbidly obese Eyes: PERRL, conjunctivae normal, anicteric sclerae ENMT: external ear and nose normal, oropharynx normal Respiratory: Auscultation: + diminished lung sounds Cardiovascular: Rate/Rhythm: regular rate and regular rhythm Heart Sounds: normal S1 and normal S2 Extremities: + edema (23+ diffuse) Gastrointestinal (Abdomen): Large panniculus with improved anasarca Neurologic: PERRL, EOMI, accommodation nl, no face palsy, no dysarthria Results & Data Vital Signs (Past 12 Hours) Vital Signs Temp Pulse Pulse Resp BP BP Pulse Ox 04/25/20 07:39 71 04/25/20 07:19 36.7 C 67 18 112/66 93 04/25/20 04:31 36.4 C L 76 19 101/62 96 04/25/20 00:25 70 04/24/20 23:04 36.6 C 76 20 113/86 94 Laboratory Results Laboratory Results - last 24 hr 04/24/20 04/24/20 04/24/20 08:46 12:01 16:47 Sodium 134 L Potassium 3.3 L Chloride 93 L Carbon Dioxide 33 H Anion Gap 8.0 BUN 20 H Creatinine 1.07 Est Cr Clr Drug Dosing 146.5 Est GFR ( Amer) 92.0 Est GFR (Non-Af Amer) 79.4 BUN/Creatinine Ratio 18.3 Glucose 253 H POC Glucose 234 H 183 H Calcium 9.2 Magnesium 2.1 04/24/20 04/25/20 20:43 07:34 Sodium Potassium Chloride Carbon Dioxide Anion Gap BUN Creatinine Est Cr Clr Drug Dosing Est GFR ( Amer) Est GFR (Non-Af Amer) BUN/Creatinine Ratio Glucose POC Glucose 151 H 179 H Calcium Magnesium (1) Fluid overload Hypervolemia type: other Qualified Code(s): E87.79 - Other fluid overload
[2020-04-25] MEDS ORDERED: POTASSIUM CHLORIDE 20 MEQ TABCR PO ONE (09:00)
[2020-04-25 10:04] LABS: BUN Creatinine Ratio 21.5 (10-20); Creatinine Clr Calc Pharmacy 146.5 ml/min; Est GFR (African American) 93.1; Est GFR (Non-African American) 80.3; Potassium 3.8 mmol/L (3.5-5.1)
--- NOTE | 2020-04-25 10:14 | Pharmacy Report ---
Glycemic Control Progress Note - Date of Service April 25, 2020 - Scope Glycemic Pharmacist consulted for glycemic control to write orders per [facility] inpatient glycemic control protocol. - Objective Accuchecks BSG(last 24 hours):: 04/24/20 04/24/20 04/24/20 12:01 16:47 20:43 Glucose POC Glucose 234 H 183 H 151 H 04/25/20 04/25/20 07:34 09:25 Glucose 221 H POC Glucose 179 H HbA1c:: Hemoglobin A1c 10.6 % (4.5-5.6) H 04/22/20 07:08 - Recent Pertinent Medications The patient is currently receiving: * Basal insulin: Lantus 40 units every 12 hours * Correctional Insulin: Novolog Correction per scale ACHS Goal Range: Low 110 mg/dL - High 140 mg/dL Correction Factor: 10 mg/dL/unit * Prandial insulin: Per carb ratio of 1 unit per 4 grams CHO consumed - Outpatient Anti-Diabetic Meds Lantus 40 units SQ HS Trulicity 1.5 mg weekly Jardiance 10 mg daily metformin 500 mg daily - Assessment & Plan ASSESSMENT: * See progress note from 04/23/2020 for more background info, in short: * Pt receiving SQ basal bolus insulin regimen for hyperglycemia secondary to baseline DM (outpatient regimen on hold). * Patient is currently receiving an average of 159 units of insulin per day * 80 units of basal insulin * 79 units of prandial/correctional insulin * BSGs ranging 151 - 234 mg/dl over the past 24hrs * Changes needed to insulin regimen: * AM Fasting BSG = 179 mg/dl. This is slightly above goal range for patient based on inpatient targets and co-morbidities. Fasting BSGs have decreased well over the past few days (271 - 206- 179 mg/dL). Continue basal rate of 80 units/day. * Post-prandial BSGs are in range therefore no changes needed to CF/CR. * Total daily dose = ~160 units. PLAN FOR INPATIENT GLYCEMIC CONTROL: * Continuing Lantus 40 units SQ BID * Continuing correction factor of 10 mg/dl/unit * Continuing carb ratio of 1 unit per 4 grams CHO consumed * Continuing goal range of Low 110 mg/dL - High 140 mg/dL RECOMMENDATIONS FOR DISCHARGE: * Recommend continuing Jardiance and Trulicity. * Could consider discontinuation of metformin due to contraindication in heart failure. * Recommend starting Lantus 40 units SQ BID with Novolog 15-20 units with meals. Thank you.
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
[2020-04-25] MEDS: OXYCODONE/ACETAMINOPHEN 5mg/325mg TAB PO PRN (17:57)
--- NOTE | 2020-04-25 19:32 | Hospitalist Progress Note ---
Date of Service April 25, 2020 Assessment & Plan (1) Acute diastolic congestive heart failure: Acute on chronic diastolic heart failure Volume overload Worsened secondary to pickwickian syndrome CXR:Congestive heart failure Monitor volume status, I's and O's, electrolytes, renal function Appreciate Cardiology input Continue IV Lasix, metolazone, and spironolactone Cardiology following Hypomagnesemia Replete electrolytes as needed Possible Suicidal Ideation Patient denies any active suicidal thoughts Appreciate psychiatry input Continue current medications (2) Pickwickian syndrome: Obesity hypoventilation syndrome H/O sleep apnea--noncompliant with BiPAP Will need Pulm eval as outpatient Counseled him to use BiPAP regularly (3) Diabetes: DM Type II Hyperglycemia with uncontrolled diabetes Hemoglobin A1c is high at 10.6 Glycemic pharmacy consult Continue Insulin therapy Monitor BGs (4) Acute hyperglycemia: As above Bilateral leg edema with lymphedema Chronic skin changes No evidence of acute cellulitis DVT Px: Heparin SQ CODE STATUS Full Code Admission and Anticipated Discharge Date Admission Date: April 23, 2020 Subjective Patient is seen and examined at bedside Concern for suicidal ideation per RN Headache better Toothache resolved Denies chest pain, SOB, dizziness, nausea, abdominal pain Reports generalized pain today Review of Systems Review of Systems: All systems reviewed & are unremarkable except as noted in HPI & below Physical Exam Physical Exam: GENERAL: Morbidly obese, no acute distress. Head: normocephalic, Atraumatic Eyes: normal inspection, EOMI Neck: supple, Trachea midline CARDIOVASCULAR: S1, S2, regular rate and rhythm, no murmur, no gallop. RESPIRATORY SYSTEM: Decreased Breath sounds, CTA, No accessory muscle use. ABDOMEN: Soft, non tender, Obese, bowel sounds present CENTRAL NERVOUS SYSTEM: AAOX3, Grossly no focal deficits EXTREMITIES: B/L LE chronic venous stasis skin changes, chronic lymphedema Results & Data Results & Data ([facility]) Vital Signs (Past 12 Hours) Vital Signs Temp Pulse Pulse Resp BP Pulse Ox 04/25/20 15:51 36.8 C 79 20 135/88 95 04/25/20 11:33 36.4 C L 71 18 134/83 94 04/25/20 07:39 71 Laboratory Results [facility] 04/25/20 09:25 Sodium 135 L Potassium 3.8 D Chloride 95 L Carbon Dioxide 31 BUN 23 H Creatinine 1.06 Glucose 221 H Calcium 10.0
[2020-04-25] MEDS: PANTOprazole 40 MG TAB PO SCH (20:42)
[2020-04-25] MEDS: POTASSIUM CHLORIDE 20 MEQ TABCR PO SCH (20:43)
[2020-04-25] MEDS: ATORVASTATIN 40 MG TAB PO SCH (20:44)
[2020-04-25] MEDS ORDERED: LORazepam 0.5 MG TAB PO STA (21:20)
[2020-04-26] MEDS: HEPARIN SOD 5,000 UNIT/0.5 ML VIAL SQ SCH ×3 (05:18→20:37)
[2020-04-26 08:52] LABS: BUN Creatinine Ratio 21.6 (10-20); Calcium 9.2 mg/dl (8.5-10.1); Creatinine Clr Calc Pharmacy 161.8 ml/min; Est GFR (African American) 104.9; Est GFR (Non-African American) 90.5; Potassium 3.2 mmol/L (3.5-5.1)
[2020-04-26] MEDS ORDERED: POTASSIUM CHLORIDE 20 MEQ TABCR PO ONE (09:11)
[2020-04-26] MEDS: TESTOSTERONE~ORDER AWAITING ACTION SCH ×3 (09:36→22:56)
[2020-04-26] MEDS: INSULIN ASPART 100 UNITS/ML 3 ML PEN SC SCH ×4 (09:42→20:36)
[2020-04-26] MEDS: SPIRONOLACTONE 25 MG TAB PO SCH ×2 (09:42→20:35)
[2020-04-26] MEDS: VARENICLINE 1 MG TAB PO SCH ×2 (09:43→20:35)
[2020-04-26] MEDS: ASPIRIN 81 MG ECTAB PO SCH (09:43)
[2020-04-26] MEDS: SERTRALINE HCL 50 MG TABLET PO SCH (09:43)
[2020-04-26] MEDS: FUROSEMIDE 80 MG in SYRINGE 0 ML IV SCH ×3 (09:43→20:36)
[2020-04-26] MEDS: CHOLECALCIFEROL 1,000 UNITS 25 MCG TAB PO SCH (09:43)
[2020-04-26] MEDS: UMECLIDINIUM BROMIDE 62.5MCG/BLISTER 7 PUFFS/INHALER INH SCH (09:43)
[2020-04-26] MEDS: INSULIN GLARGINE SOLOSTAR 100 UNITS/ML 3 ML PEN SQ SCH ×2 (10:24→20:37)
--- NOTE | 2020-04-26 11:52 | Pharmacy Report ---
Pharmacy Glycemic Short Note 2 - Date of Service April 26, 2020 - Glycemic Short BSG Results (Last 24 hours): 04/25/20 04/25/20 04/25/20 11:54 16:43 20:29 Glucose POC Glucose 264 H 242 H 202 H 04/26/20 04/26/20 07:19 07:56 Glucose 158 H POC Glucose 174 H OUTPATIENT ANTIDIABETIC REGIMEN: Lantus 40 units SQ HS Trulicity 1.5 mg weekly Jardiance 10 mg daily metformin 500 mg daily ASSESSMENT: * Pt has been receiving 153-159 units of insulin per day with near adequate control * AM fasting BSG remains above goal range at 174 mg/dl --> will increase basal insulin by 20% and re-evaluate in 24hrs * Post-prandial BSGs remain elevated --> will tighten CR. PO intake adequate based on CHO counts * Will allow some degree of hyperglycemia since there could be absorption issues with edema. PLAN FOR INPATIENT GLYCEMIC CONTROL: * Hold outpatient oral diabetes medications * Basal insulin * Increase Lantus 45 units SQ BID * Bolus insulin * NovoLog per scale ACHS or Q6hrs while NPO * Goal Range: Low 110 mg/dL - High 140 mg/dL * Correction Factor: 10 mg/dL/unit * Nutritional / Prandial insulin per carb ratio of 1 unit per 3 grams CHO consumed {tighten CR from 4 to 3} PLAN FOR DISCHARGE: * A1c is above goal range at 10.6% on 04/22/20 * Recommend continuing current outpatient regimen but increasing Lantus and adding bolus insulin with the largest meal of the day.
--- NOTE | 2020-04-26 12:34 | Cardiology Progress Note ---
Date of Service April 26, 2020 Assessment & Plan (1) Pickwickian syndrome: Patient admitted with massive volume overload secondary to pickwickian syndrome hypoventilation. Patient diuresing well over the last 24-48 hours. Diuresed nearly 10 Kg since admission. Continue IV diureitcs with furosemide 80 TID, metolazone and spironolactone. supplement potassium this morning. Renal funciton stable Patient has preserved LV systolic function on echocardiogram and no significant valvular disease with current issues being predominantly driven by underlying severe respiratory issues. . He needs to have this provided during this admission if possible. Oxygen and BiPAP supplementation Will begin to make arrangements with high risk obesity clinic ultimate goals substantial weight loss in addition to fluid management. Potassium supplemented to prevent contraction alkalosis and worsening hypercarbia Patient needs to restart BiPAP while in hospital Continue daily weights (2) Fluid overload: (3) Morbid obesity: (4) SIDRA treated with BiPAP: (5) Acute diastolic congestive heart failure: Subjective Patient seen and examined, chart, medications, telemetry reviewed. Patient difficult to arouse this morning Visualized apnea and disrupted sleep present Physical Exam Constitutional: + morbidly obese Eyes: PERRL, conjunctivae normal, anicteric sclerae ENMT: external ear and nose normal, oropharynx normal Respiratory: Auscultation: + diminished lung sounds Cardiovascular: Rate/Rhythm: regular rate and regular rhythm Heart Sounds: normal S1 and normal S2 Extremities: + edema (23+ diffuse) Neurologic: PERRL, EOMI, accommodation nl, no face palsy, no dysarthria Results & Data Vital Signs (Past 12 Hours) Vital Signs Temp Pulse Resp BP Pulse Ox 04/26/20 08:07 36.6 C 64 20 147/62 H 90 Laboratory Results Laboratory Results - last 24 hr 04/25/20 04/25/20 04/26/20 16:43 20:29 07:19 Sodium 136 Potassium 3.2 L D Chloride 98 Carbon Dioxide 32 Anion Gap 6.0 BUN 21 H Creatinine 0.96 Est Cr Clr Drug Dosing 161.8 Est GFR ( Amer) 104.9 Est GFR (Non-Af Amer) 90.5 BUN/Creatinine Ratio 21.6 H Glucose 158 H POC Glucose 242 H 202 H Calcium 9.2 04/26/20 04/26/20 07:56 12:10 Sodium Potassium Chloride Carbon Dioxide Anion Gap BUN Creatinine Est Cr Clr Drug Dosing Est GFR ( Amer) Est GFR (Non-Af Amer) BUN/Creatinine Ratio Glucose POC Glucose 174 H 175 H Calcium Diagnostic Findings Laboratory Results - last 24 hr 04/25/20 04/25/20 04/26/20 16:43 20:29 07:19 Sodium 136 Potassium 3.2 L D Chloride 98 Carbon Dioxide 32 Anion Gap 6.0 BUN 21 H Creatinine 0.96 Est Cr Clr Drug Dosing 161.8 Est GFR ( Amer) 104.9 Est GFR (Non-Af Amer) 90.5 BUN/Creatinine Ratio 21.6 H Glucose 158 H POC Glucose 242 H 202 H Calcium 9.2 04/26/20 04/26/20 07:56 12:10 Sodium Potassium Chloride Carbon Dioxide Anion Gap BUN Creatinine Est Cr Clr Drug Dosing Est GFR ( Amer) Est GFR (Non-Af Amer) BUN/Creatinine Ratio Glucose POC Glucose 174 H 175 H Calcium (1) Fluid overload Hypervolemia type: other Qualified Code(s): E87.79 - Other fluid overload
[2020-04-26] MEDS: OXYCODONE/ACETAMINOPHEN 5mg/325mg TAB PO PRN (12:43)
--- NOTE | 2020-04-26 17:38 | Hospitalist Progress Note ---
Date of Service April 26, 2020 Assessment & Plan (1) Acute diastolic congestive heart failure: Acute on chronic diastolic heart failure Volume overload Worsened secondary to pickwickian syndrome CXR:Congestive heart failure Monitor volume status, I's and O's, electrolytes, renal function Appreciate Cardiology input Continue IV Lasix, metolazone, and spironolactone Cardiology following Weight down by 11kg since admission renal function stable Needs follow up with Obesity clinic upon discharge Hypokalemia Hypomagnesemia Replete electrolytes as needed Suspected Suicidal Ideation Patient denies any active suicidal thoughts Appreciate psychiatry input Continue current medications (2) Pickwickian syndrome: Obesity hypoventilation syndrome H/O sleep apnea--noncompliant with BiPAP Will need Pulm eval as outpatient Counseled him to use BiPAP regularly (3) Diabetes: DM Type II Hyperglycemia with uncontrolled diabetes Hemoglobin A1c is high at 10.6 Glycemic pharmacy consult Continue Insulin therapy Monitor BGs (4) Acute hyperglycemia: As above Bilateral leg edema with lymphedema Chronic skin changes No evidence of acute cellulitis DVT Px: Heparin SQ CODE STATUS Full Code Admission and Anticipated Discharge Date Admission Date: April 23, 2020 Subjective Patient is seen and examined at bedside Eager to get discharged Weight down by 11 kg since admission Leg swelling improving Denies chest pain, SOB, dizziness, nausea, abdominal pain Review of Systems Review of Systems: All systems reviewed & are unremarkable except as noted in HPI & below Physical Exam Physical Exam: GENERAL: Morbidly obese, no acute distress. Head: normocephalic, Atraumatic Eyes: normal inspection, EOMI Neck: supple, Trachea midline CARDIOVASCULAR: S1, S2, regular rate and rhythm, no murmur, no gallop. RESPIRATORY SYSTEM: Decreased Breath sounds, CTA, No accessory muscle use. ABDOMEN: Soft, non tender, Obese, bowel sounds present CENTRAL NERVOUS SYSTEM: AAOX3, Grossly no focal deficits EXTREMITIES: B/L LE chronic venous stasis skin changes, chronic lymphedema Results & Data Results & Data ([facility]) Vital Signs (Past 12 Hours) Vital Signs Temp Pulse Resp BP Pulse Ox 04/26/20 15:16 36.6 C 71 19 158/95 H 92 04/26/20 13:48 138/82 04/26/20 08:07 36.6 C 64 20 147/62 H 90 Laboratory Results [facility] 04/26/20 07:19 Sodium 136 Potassium 3.2 L D Chloride 98 Carbon Dioxide 32 BUN 21 H Creatinine 0.96 Glucose 158 H Calcium 9.2
[2020-04-26] MEDS: POTASSIUM CHLORIDE 20 MEQ TABCR PO SCH (20:34)
[2020-04-26] MEDS: PANTOprazole 40 MG TAB PO SCH (20:36)
[2020-04-26] MEDS: ATORVASTATIN 40 MG TAB PO SCH (20:36)
[2020-04-27] MEDS: OXYCODONE/ACETAMINOPHEN 5mg/325mg TAB PO PRN (01:16)
[2020-04-27] MEDS: HEPARIN SOD 5,000 UNIT/0.5 ML VIAL SQ SCH ×2 (05:04→16:04)
[2020-04-27 06:42] LABS: Calcium 8.8 mg/dl (8.5-10.1); Creatinine Clr Calc Pharmacy 152.3 ml/min; Est GFR (African American) 97.5; Est GFR (Non-African American) 84.1; Magnesium 1.9 mg/dl (1.8-2.4); Potassium 3.4 mmol/L (3.5-5.1)
[2020-04-27] MEDS: SPIRONOLACTONE 25 MG TAB PO SCH (08:12)
[2020-04-27] MEDS: VARENICLINE 1 MG TAB PO SCH (08:12)
[2020-04-27] MEDS: CHOLECALCIFEROL 1,000 UNITS 25 MCG TAB PO SCH (08:13)
[2020-04-27] MEDS: SERTRALINE HCL 50 MG TABLET PO SCH (08:13)
[2020-04-27] MEDS: ASPIRIN 81 MG ECTAB PO SCH (08:13)
[2020-04-27] MEDS: UMECLIDINIUM BROMIDE 62.5MCG/BLISTER 7 PUFFS/INHALER INH SCH (08:15)
[2020-04-27] MEDS: TESTOSTERONE~ORDER AWAITING ACTION SCH (08:15)
[2020-04-27] MEDS: INSULIN ASPART 100 UNITS/ML 3 ML PEN SC SCH ×2 (08:15→12:15)
[2020-04-27] MEDS: FUROSEMIDE 80 MG in SYRINGE 0 ML IV SCH ×2 (08:17→16:04)
[2020-04-27] MEDS ORDERED: POTASSIUM CHLORIDE 20 MEQ TABCR PO SCH (09:00)
[2020-04-27] MEDS ORDERED: INSULIN GLARGINE SOLOSTAR 100 UNITS/ML 3 ML PEN SQ SCH (09:00)
--- NOTE | 2020-04-27 09:50 | Cardiology Progress Note ---
Date of Service April 27, 2020 Assessment & Plan (1) Pickwickian syndrome: Patient admitted with massive volume overload secondary to pickwickian syndrome hypoventilation. Patient has responded to IV diuretics with substantial volume/weight loss Underlying severe obstructive sleep apnea and morbid obesity driving fluid retention Patient notes high salt demand in diet strongly encouraged discontinuation Arrangements made for high risk obesity clinic referral after discharge Patient may be discharged today on increase metolazone 2.5 mg 3 days/week, torsemide 80 mg p.o. twice daily, potassium 20 mEq/day Weight will need to be recorded prior to discharge CHF instructions once again to be given daily weights report weight gain greater than 4 pound BMP upcoming week Resume use of BiPAP at home Avoid all sedatives Follow-up cardiology 2 to 3 weeks (2) Fluid overload: (3) Morbid obesity: (4) SIDRA treated with BiPAP: (5) Acute diastolic congestive heart failure: Subjective Patient seen and examined, chart, medications, laboratory studies reviewed Patient feels substantially improved since admission Strongly wishes to be discharged today due to concerns of care of Review of Systems Review of Systems: All systems reviewed & are unremarkable except as noted in HPI & below Physical Exam Constitutional: + morbidly obese Eyes: PERRL, conjunctivae normal, anicteric sclerae ENMT: external ear and nose normal, oropharynx normal Respiratory: no respiratory distress Auscultation: + diminished lung sounds Cardiovascular: Rate/Rhythm: regular rate and regular rhythm Heart Sounds: normal S1 and normal S2 Extremities: + edema (12+ diffuse clinically improved with chronic stasis induration) Gastrointestinal (Abdomen): Obese with large panniculus but less distended Neurologic: PERRL, EOMI, accommodation nl, no face palsy, no dysarthria Results & Data Vital Signs (Past 12 Hours) Vital Signs Temp Pulse Resp BP Pulse Ox 04/27/20 07:17 36.5 C 71 18 135/84 90 04/26/20 22:42 36.5 C 84 19 161/62 H 91 (1) Fluid overload Hypervolemia type: other Qualified Code(s): E87.79 - Other fluid overload
[2020-04-27] MEDS ORDERED: POTASSIUM CHLORIDE 20 MEQ TABCR PO ONE (09:56)
--- NOTE | 2020-04-27 11:59 | Pharmacy Report ---
Pharmacy Glycemic Short Note 2 - Date of Service April 27, 2020 - Glycemic Short BSG Results (Last 24 hours): 04/26/20 04/26/20 04/26/20 12:10 16:32 16:33 Glucose POC Glucose 175 H 433 H* 195 H 04/26/20 04/26/20 04/27/20 16:34 20:13 05:28 Glucose 166 H POC Glucose 192 H 199 H 04/27/20 04/27/20 07:35 11:30 Glucose POC Glucose 174 H 191 H OUTPATIENT ANTIDIABETIC REGIMEN: Lantus 40 units SQ HS Trulicity 1.5 mg weekly Jardiance 10 mg daily metformin 500 mg daily ASSESSMENT: * Pt has been receiving ~160 units of insulin per day with near adequate control * AM fasting BSG remains above goal range at 174 mg/dl --> will increase basal insulin and re-evaluate in 24hrs * Post-prandial BSGs remain elevated --> will tighten CR. PO intake adequate based on CHO counts * Will increase total daily dose by 20% (increase from 160 units/day to ~190 units/day) * Will allow some degree of hyperglycemia since there could be absorption issues with edema. PLAN FOR INPATIENT GLYCEMIC CONTROL: * Hold outpatient oral diabetes medications * Basal insulin * Increase Lantus 48 units SQ BID * Bolus insulin * NovoLog per scale ACHS or Q6hrs while NPO * Goal Range: Low 110 mg/dL - High 140 mg/dL * Correction Factor: 10 mg/dL/unit * Nutritional / Prandial insulin per carb ratio of 1 unit per 2 grams CHO consumed {tighten CR from 3 to 2} PLAN FOR DISCHARGE: * A1c is above goal range at 10.6% on 04/22/20 * Recommend continuing current outpatient regimen but increasing Lantus to BID and adding bolus insulin (Novolog or humalog) 20 units with the largest meal of the day. * Metformin dosing could be maximized to promote weight loss and minimize insulin dosing * Continue to titrate metformin dosing upwards as recommended. Dosage increases should be made in increments of 500 mg weekly, up to 2,000 mg/day PO, given in divided doses. Doses above 2000 mg/day may be better tolerated if divided and given 3 times per day with meals. Max: 2,550 mg/day PO, in divided doses
--- NOTE | 2020-04-27 12:25 | Hospitalist Progress Note ---
Date of Service April 27, 2020 Assessment & Plan (1) Acute diastolic congestive heart failure: Acute on chronic diastolic heart failure Volume overload Worsened secondary to pickwickian syndrome CXR:Congestive heart failure Monitor volume status, I's and O's, electrolytes, renal function Appreciate Cardiology input Received IV Lasix, metolazone, and spironolactone Cardiology following Weight down by 13kg since admission renal function stable Needs follow up with Obesity clinic upon discharge Plan to discharge on torsemide 80 mg twice daily, potassium 20 mEq/day, metolazone increased to 2.5 mg 3 days/week Needs follow-up with cardiology in 2 to 3-weeks Hypokalemia Hypomagnesemia Replete electrolytes as needed Suspected Suicidal Ideation Patient denies any active suicidal thoughts Appreciate psychiatry input Continue current medications (2) Pickwickian syndrome: Obesity hypoventilation syndrome H/O sleep apnea--noncompliant with BiPAP Will need Pulm eval as outpatient Counseled him to use BiPAP regularly (3) Diabetes: DM Type II Hyperglycemia with uncontrolled diabetes Hemoglobin A1c is high at 10.6 Glycemic pharmacy consult Continue Insulin therapy Monitor BGs (4) Acute hyperglycemia: As above Bilateral leg edema with lymphedema Chronic skin changes No evidence of acute cellulitis DVT Px: Heparin SQ CODE STATUS Full Code Admission and Anticipated Discharge Date Admission Date: April 23, 2020 Subjective Patient is seen and examined at bedside No new complaints Headache resolved Discussed with cardiology today Eager to get discharged Leg swelling improved Denies chest pain, SOB, dizziness, nausea, abdominal pain Review of Systems Review of Systems: All systems reviewed & are unremarkable except as noted in HPI & below Physical Exam Physical Exam: GENERAL: Morbidly obese, no acute distress. Head: normocephalic, Atraumatic Eyes: normal inspection, EOMI Neck: supple, Trachea midline CARDIOVASCULAR: S1, S2, regular rate and rhythm, no murmur, no gallop. RESPIRATORY SYSTEM: Decreased Breath sounds, CTA, No accessory muscle use. ABDOMEN: Soft, non tender, Obese, bowel sounds present CENTRAL NERVOUS SYSTEM: AAOX3, Grossly no focal deficits EXTREMITIES: B/L LE chronic venous stasis skin changes, chronic lymphedema Results & Data Results & Data ([facility]) Vital Signs (Past 12 Hours) Vital Signs Temp Pulse Resp BP Pulse Ox 04/27/20 07:17 36.5 C 71 18 135/84 90 Laboratory Results BMP 04/27/20 05:28 Sodium 136 Potassium 3.4 L Chloride 98 Carbon Dioxide 29 BUN 21 H Creatinine 1.02 Glucose 166 H Calcium 8.8
--- NOTE | 2020-04-27 12:45 | Discharge Summary ---
Date of Service April 27, 2020 Admission HPI Per Admitting Provider CHIEF COMPLAINT: Chest pressure and shortness of breath. HISTORY OF PRESENT ILLNESS: This is a 54-year-old male with past medical history significant for morbidly obese and obstructive sleep apnea, noncompliant with BiPAP, hypopituitarism, hyperlipidemia, type 2 diabetes, venous stasis of the bilateral lower extremity, hypertension, chronic diastolic CHF, chronic bilateral lower extremity lymphedema and recurrent cellulitis of bilateral lower extremity presents with increasing weight and chest pressure and shortness of breath. The patient was recently in the hospital a couple of times for cellulitis, last admission, he was treated with Rocephin and doxycycline. He was discharged on Omnicef and doxycycline. The patient finished the course. He saw the family doctor after discharge he was supposed to see heart doctor yesterday but could not make the appointment.He gained about 20 pounds since discharge. His abdominal girth is increasing and lower extremity swelling has increased .He ambulates with a walker at home, but he is having difficulty ambulation. He is having shortness of breath on exertion and also some chest tightness and abdominal tightness and he also felt some electric shocks going to the arms and lower extremities and when he called his application assistant today was advised to come to the ER. The patient says he is using only once in a while couple of hours of BiPAP in the night but does not tolerate it. Denies any cough. No loss of smell or taste. Appetite is okay. He has dry mouth and has has difficulty swallowing sometimes because of dry mouth. Has mild headache, no blurred vision, no earache, no runny nose, no sore throat, no fever, no chills, no nausea, no vomiting, no abdominal pain. Normal bowel movements. Denies any bloody stools or black stools. He says he is not micturating much. Denies any burning micturition or blood in the urine. Currently is sitting in the chair, hemodynamically stable. Admission Exam Per Admitting Provider PHYSICAL EXAMINATION: GENERAL: The patient is morbidly obese, not in acute distress, somewhat sleepy. VITAL SIGNS: Temperature 36.5, pulse 76, respiratory rate 20, blood pressure 151/78, oxygen 95% on room air. HEENT: No pallor. Pupils equal, round, and reactive to light. NECK: No neck masses. No JVD. CARDIOVASCULAR: S1, S2 heard, regular rate and rhythm, no murmur, no gallop. RESPIRATORY SYSTEM: Normal AP diameter. No accessory muscle use. No wheezing, no crackles. ABDOMEN: Soft. Abdomen somewhat hard, dense bowel sounds sluggish. Nontender. Mild distention. CENTRAL NERVOUS SYSTEM: Cranial nerves II-XII are grossly intact. Nonfocal. EXTREMITIES: Bilateral lower extremity gross edema present. No obvious erythema seen. No drainage seen. Principal Diagnosis Acute on chronic diastolic heart failure Hypokalemia Hypomagnesemia Uncontrolled Diabetes Discharge Data Allergies Allergy/AdvReac Type Severity Reaction Status Date / Time vancomycin Allergy Intermediate Hives Verified 04/22/20 00:26 hydrocodone [From Vicodin] Allergy Mild Rash Verified 04/22/20 00:26 Consultations 04/22/20 02:00 ED Decision to Admit Stat 04/22/20 04:39 Consult Case Management - Discharge Planning Routine 04/22/20 08:00 Consult Cardiology Routine 04/25/20 10:11 Consult Psychiatry Routine Procedures Performed CXR:Congestive heart failure Ordered Studies 04/22/20 04:39 US venous doppler LE Routine Hospital Course (1) Acute diastolic congestive heart failure: Acute on chronic diastolic heart failure Volume overload Worsened secondary to pickwickian syndrome CXR:Congestive heart failure Monitor volume status, I's and O's, electrolytes, renal function Appreciate Cardiology input Received IV Lasix, metolazone, and spironolactone Cardiology following Weight down by 13kg since admission renal function stable Needs follow up with Obesity clinic upon discharge Plan to discharge on torsemide 80 mg twice daily, potassium 20 mEq/day, metolazone increased to 2.5 mg 3 days/week Needs follow-up with cardiology in 2 to 3-weeks Hypokalemia Hypomagnesemia Replete electrolytes as needed Suspected Suicidal Ideation Patient denies any active suicidal thoughts Appreciate psychiatry input Continue current medications (2) Pickwickian syndrome: Obesity hypoventilation syndrome H/O sleep apnea--noncompliant with BiPAP Will need Pulm eval as outpatient Counseled him to use BiPAP regularly (3) Diabetes: DM Type II Hyperglycemia with uncontrolled diabetes Hemoglobin A1c is high at 10.6 Glycemic pharmacy consult Continue Insulin therapy Monitor BGs (4) Acute hyperglycemia: As above Bilateral leg edema with lymphedema Chronic skin changes No evidence of acute cellulitis DVT Px: Heparin SQ CODE STATUS Full Code Total Time Total Time Spent Total Time Spent (In Minutes): 40 minutes Total Time Includes: Examination of the Patient, Discharge Planning, Medication Reconciliation, Communication With Other Providers and Other Discharge Plan Discharge Items Patient Disposition: Home - Home Health Services Reason For Visit: SOB, WEIGHT GAIN Discharge Diagnosis: Acute on chronic diastolic heart failure Hypokalemia Hypomagnesemia Uncontrolled Diabetes Activity: Per Instructions section Exercise/Sports: Gradually increase as tolerated Non-emergency contact: Primary Care Provider and Assurance Engineer Call non-emergency contact if: you have any medication questions, your symptoms worsen, your pain is not controlled, your pain is worsening, your pain is unusual for you, your pain is concerning for you and you have a fever Follow-up/Referrals: Chavo Roy DO [Primary Care Provider] - Diet: Carb Consistent or DM2, Heart Healthy and Low Sodium (2gm) Fluids: 2000ml (8 cups) Addtl Attending Provider Instructions: Follow-up with your primary care physician Dr. Roy in 1 week as advised Follow up with your Assurance Engineer in 2-3 weeks as advised Follow up with Obesity clinic upon discharge Discussed with your physician for further management of your diabetes as recommended. Medication changes: YOUR METOLAZONE is increased to 3 times a week (Take on Tuesday, and Tuesday) as recommended by your application assistant. YOUR Lantus 40 units twice a day for better control of your blood glucose levels Seek immediate medical attention if your symptoms reoccur or worsen Call your Primary Care doctor if any of the following symptoms or problems start or get worse: * Shortness of breath or difficulty breathing * Wake up at night short of breath * Chest pain * Cough * Swelling of your hands, feet, or legs * More fatigued or tired with your normal activity * Palpitations - sudden fast heart beats WEIGHT * Weigh yourself every morning after using the bathroom. * Use the same scale. * Wear the same amount of clothing. * Write your weight down on a chart. * Call your Primary Care doctor if you gain more than 2-3 pounds in 1-2 days. MEDICATIONS * Use this discharge instruction sheet for medication instructions. * Take your medications at the time your doctor ordered. * Do not skip a dose of your medicines. * If you miss a dose of medicine, take it as soon as possible, but DO NOT DOUBLE A DOSE. * Read your medicine information when you get home. * Know all of the side effects of your medicine. If in doubt, ask your pharmacist * Call your Primary Care doctor's office if you have any side effects. * Be sure all of your doctors know what medicine and herbs you take (including cold, flu, and herbal medicine). Take the following with you to your follow-up doctor appointments: * Weight Chart * Medication List * List of questions Do not drink excessive alcohol, beer or wine. Pending Studies at Discharge: No Stand-Alone Forms: My [facility] Dialogic, Smoking Cessation Medications and DC Order Prescriptions: New Lantus Solostar U-100 Insulin 100 unit/mL (3 mL) insulin pen 40 units SQ BID Qty: 15 RF: 1 Continued Lactobacillus acidophilus 1 billion cell tablet 1 mmu cells PO TID RF: 0 cholecalciferol (vitamin D3) 2,000 unit capsule 2,000 unit PO DAILY RF: 0 Chantix 1 mg tablet 1 mg PO BID RF: 0 metformin 500 mg tablet extended release 24 hr 500 mg PO DAILY Qty: 30 RF: 0 (DME) lancets [OneTouch Delica Lancets] 30 gauge misc See Rx Instructions .ROUTE .MEDSUPPLY Qty: 100 RF: 1 (DME) blood sugar diagnostic [OneTouch Verio test strips] Strip See Rx Instructions .ROUTE .MEDSUPPLY Qty: 100 RF: 1 torsemide 20 mg tablet 80 mg PO BID RF: 0 spironolactone 50 mg tablet 50 mg PO BID RF: 0 potassium chloride 20 mEq Tablet Extended Release 20 meq PO HS 5 Days Qty: 5 RF: 0 atorvastatin 40 mg Tablet 40 mg PO HS RF: 0 sennosides [senna] 8.6 mg Tablet 2 tab PO DAILY PRN (Reason: Constipation) RF: 0 aspirin 81 mg Tablet,Delayed Release (Dr/Ec) 81 mg PO DAILY RF: 0 acetaminophen 500 mg Tablet 1,000 mg PO Q6H PRN (Reason: Pain) RF: 0 oxycodone-acetaminophen 5-325 mg Tablet 1 tab PO Q12 PRN (Reason: Pain) RF: 0 pantoprazole 40 mg Tablet,Delayed Release (Dr/Ec) 40 mg PO HS RF: 0 albuterol sulfate [Ventolin HFA] 90 mcg/actuation Hfa Aerosol Inhaler 2 puff INHALATION Q4 PRN (Reason: Shortness Of Breath) RF: 0 Trulicity 1.5 mg/0.5 mL pen injector 1.5 mg SUBCUT WK RF: 0 Androderm 4 mg/24 hr patch 24 hour 4 mg transdermal DAILY RF: 0 fluticasone propionate [Flonase Allergy Relief] 50 mcg/actuation spray,suspension 2 spray INTRANASAL DAILY PRN (Reason: Nasal Congestion) RF: 0 Spiriva with HandiHaler 18 mcg capsule, w/inhalation device 1 cap INHALATION DAILY RF: 0 Jardiance 10 mg tablet 10 mg PO DAILY RF: 0 sertraline 50 mg tablet 50 mg PO DAILY RF: 0 metolazone 2.5 mg tablet 2.5 mg PO UD Qty: 30 RF: 0 Discharge Orders: Discharge Order (Routine); Ordered 04/27/20 Ordered By: Ever Barakat Admission Data Admit Date/Time: 04/23/20 19:40 Attending Provider: Ever Barakat Admit Provider: Hakan Izaguirre Primary Care Provider: Chavo Roy Other Providers: [facility] ; Hakan Izaguirre ; Hector Mccabe ; Neftaly Reyes ; Parag Alston ; Mihir Jones ; JenniferDenis mera ; Pancho Stuart ; Suzette Guzman ; Aydee Agarwal ; Heri Teran ; Jason Jasso Other Interventions: Discharge Summary Assessment (RN) Last Done: 04/27/20 13:12
== END 2020-04-27 14:00 | disposition home health service (06) | DRG 292 ==
LOC: 1E 23:36 → ED 23:36 → SUATTDRO 04-22 02:43 → 1E 04-22 04:00 → 2W 04-23 00:57

== ENCOUNTER 2020-07-01 14:56 | Inpatient (IN) ==
--- NOTE | 2020-07-01 15:29 | Emergency Department Note ---
Impression & Plan Acute hyperglycemia, Hypoxia, Fluid overload, Hypokalemia ED Provider Note NAME: TARA THOMASON AGE: 54 SEX: M : 1965 ARRIVES VIA: Walk-In INFORMANT: Patient, ED PROVIDER(S): Hubert Hirsch DO CHIEF COMPLAINT: Swelling in the legs HPI: The patient is a 54-year-old male who presented to the emergency department for an evaluation of swelling in his legs. The patient has been noticing increased weight gain fluid retention difficulty breathing and leg swelling over the course of the last few weeks. He was seen by his primary care physician and sent to the emergency department for further evaluation and possible admission. The patient denies having any chest pain. He denies having any fevers. He states that in the past the redness in his legs has been attributed to infection. The patient denies having any cough. His primary care physician noticed that he has increased his weight by approximately 50 to 60 pounds. The patient does wear oxygen at night when he wears BiPAP but no oxygen during the day. ROS: See above HPI for pertinent positives & negatives. A total of 10 systems reviewed and were otherwise negative. PAST MEDICAL HISTORY: See Below PAST SURGICAL HISTORY: See Below FAMILY HISTORY: See Below SOCIAL HISTORY: See Below HOME MEDICATIONS: See Below ALLERGIES: See Below VITALS: See Below PHYSICAL EXAMINATION: GENERAL: Patient is awake alert in no acute distress patient is resting comfortably and showing no signs of anxiety EYES: The conjunctivae are clear. The pupils are round and reactive. EARS, NOSE, MOUTH AND THROAT: The nose is without any evidence of any deformity. Mucous membranes are moist. Tongue is midline. NECK: The neck is nontender and supple. RESPIRATORY: Shallow respirations were noted. Diminished breath sounds with rales are noted throughout. CARDIOVASCULAR: Regular rate and rhythm noted there no murmurs rubs or gallops normal S1 normal S2. GASTROINTESTINAL: The abdomen is soft. Abdomen is nontender. MUSCULOSKELETAL/EXTREMITIES: There is no evidence of gross deformity full range of motion is noted in the hips and shoulders. SKIN: Chronic venous stasis changes are noted in both lower extremities. NEUROLOGIC: Patient is awake alert and oriented x3. MEDICAL DECISION MAKING: The patient is a 54-year-old male who presented to the emergency department for an evaluation of lower extremity swelling. The patient has been having lower extremity swelling for quite some time. He has a history of volume overload. He also has a history of cellulitis. He was seen in his primary care physician's office and sent to the emergency department for further evaluation because of severe edema. The patient states he was sent for admission. I discussed the patient's laboratory and radiographic studies with him. I also discussed his case with the on-call [facility] hospitalist group. His blood sugar was treated with insulin. He was treated with potassium replacement. Triage Nursing notes reviewed. Prior medical records reviewed Vital Signs: reviewed and remarkable for no significant abnormalities Differential diagnosis: Reactive airway disease, pneumonia, pneumothorax, COPD, CHF, infections, cardiac ischemia, pulmonary embolism, musculoskeletal, gastrointestinal, as well as other pathologies. ER treatment provided: See below Diagnostics interpreted by me: ECG: EKG was obtained in the emergency department. My interpretation is normal sinus rhythm at 82 bpm. Right bundle branch block pattern was noted. LVH was noted by voltage criteria. There was no significant change noted compared to a tracing from April [id number]. Cardiac Monitoring: An order was placed for continuous cardiac monitoring. The monitor shows a rate of 85 with sinus rhythm. Laboratory studies: As stated above and show below. Imaging studies: See below Consultation(s): 1750: I discussed this case with Dr. Kaminski, she will evaluate the patient in the emergency department for further management and disposition. ED COURSE: Procedures: none PDMP:reviewed and no issues Critical Care: None Past Med/Surg History Medical History Asthma Bulging lumbar disc Bulging of cervical intervertebral disc Chronic back pain Chronic right-sided CHF (congestive heart failure) COPD (chronic obstructive pulmonary disease) Diabetes GERD with apnea Gout Hyperlipidemia Hypertension Morbid obesity with BMI of 50.0-59.9, adult Myocardial Infarction ? 10 yrs ago Osteoarthritis RBBB Recurrent cellulitis Seizure Possible seizure in 2016 evaluation normal per patient , no problems since Sleep apnea bipap with 2L oxygen Thyroid nodule just monitoring Tobacco abuse Surgical History History of cardiac cath ? 10yrs ago--no stents History of cholecystectomy History of phacoemulsification of cataract of left eye with intraocular lens implantation History of repair of anterior cruciate ligament of right knee History of toe surgery right big toe History of tooth extraction Family History Aunt Family history of diabetes mellitus Mother Diabetes Father Cancer of kidney Heart disease Other No family history of adverse response to anesthesia Social History Smoking Status: Current every day smoker Tobacco Type: Cigarettes Cigarettes Per Day: 10-20; Second Hand Exposure: Yes; Hx Alcohol Use: Yes Alcohol type: other Hx Substance Use: No Preferred Language: Irish Communication Ability: Effective Compliance Administrator Required: No Beliefs That Will Affect Care: None marital status: Current Living Situation: Spouse Current Living Situation Comment: Lives with and 2 kids Feels Safe at Home: Yes Allergies Allergies Allergy/AdvReac Type Severity Reaction Status Date / Time vancomycin Allergy Intermediate Hives Verified 07/01/20 17:54 hydrocodone [From Vicodin] Allergy Mild Rash Verified 07/01/20 17:54 Home Meds Home Medications Medication Instructions Recorded Confirmed acetaminophen 1,000 mg PO Q6H PRN 04/03/19 04/22/20 albuterol sulfate [Ventolin HFA] 2 puff INHALATION Q4 PRN 04/03/19 04/22/20 aspirin 81 mg PO DAILY 04/03/19 04/22/20 atorvastatin 40 mg PO HS 04/03/19 04/22/20 oxycodone-acetaminophen 1 tab PO Q12 PRN 04/03/19 04/22/20 pantoprazole 40 mg PO HS 04/03/19 04/22/20 sennosides [senna] 2 tab PO DAILY PRN 04/03/19 04/22/20 Lactobacillus acidophilus 1 mmu cells PO TID 08/16/19 04/22/20 cholecalciferol (vitamin D3) 2,000 unit PO DAILY 08/16/19 04/22/20 Chantix 1 mg PO BID 04/02/20 04/22/20 spironolactone 50 mg PO BID 04/08/20 04/22/20 torsemide 80 mg PO BID 04/08/20 04/22/20 Androderm 4 mg TRANSDERMAL DAILY 04/22/20 04/22/20 Jardiance 10 mg PO DAILY 04/22/20 04/22/20 Spiriva with HandiHaler 1 cap INHALATION DAILY 04/22/20 04/22/20 Trulicity 1.5 mg SUBCUT WK 04/22/20 04/22/20 fluticasone propionate [Flonase 2 spray INTRANASAL DAILY PRN 04/22/20 04/22/20 Allergy Relief] sertraline 50 mg PO DAILY 04/22/20 04/22/20 Previous Rx's Medication Instructions Recorded blood sugar diagnostic [OneTouch #100 ea 04/05/20 Verio test strips] lancets [OneTouch Delica Lancets] #100 ea 04/05/20 metformin 500 mg PO DAILY #30 tab 04/05/20 potassium chloride 20 meq PO HS 5 Days #5 tab 04/10/20 Lantus Solostar U-100 Insulin 40 units SQ BID #15 ml 04/27/20 metolazone 2.5 mg PO UD #30 tab 04/27/20 Results & Data (ED) Vital Signs Vital Signs - 24 hr 07/01/20 14:58 07/01/20 16:03 07/01/20 17:00 Temperature 36.9 C Temperature Source Oral Pulse Rate 85 Pulse Rate [Apical] 81 Pulse Rhythm Regular Pulse Strength Normal Respiratory Rate 22 18 Respiratory Effort / Characteristics Non-Labored Spontaneous Respiratory Depth Normal Respiratory Pattern Regular Blood Pressure 138/64 Blood Pressure [Left Arm] 139/79 Blood Pressure Mean 88 Blood Pressure Mean [Left Arm] 99 Blood Pressure Position Sitting Pulse Oximetry 89 L 98 98 Oxygen Delivery Method Room Air Room Air Room Air Sepsis Recent Fever Within 48 Hours No Sepsis New/Unexplained Change in Mental Status No Sepsis Action Taken by Nursing No Action Required Home Medications Current Medication List: was personally reviewed by me Laboratory Data Attestation: I reviewed the patient's lab results. Result diagrams: 07/01/20 15:42 07/01/20 15:42 Lab Results 07/01/20 07/01/20 07/01/20 Range/Units 15:42 15:42 15:42 WBC 8.53 (4.8-10.8) K/uL RBC 4.19 L (4.7-6.1) M/uL Hgb 12.9 L (14.0-18.0) g/dL Hct 37.9 L (42-52) % MCV 90.5 (80-100) fL MCH 30.8 (25-34) pg MCHC 34.0 (32-36) g/dL RDW Std Deviation 50.2 H (36.4-46.3) fL RDW Coeff of [place] 15.3 H (11.5-14.5) % Plt Count 228 (130-400) K/uL MPV 10.7 H (7.4-10.4) fL Immature Gran % (Auto) 0.4 % Neut % (Auto) 75.0 % Lymph % (Auto) 17.2 % Day % (Auto) 4.9 % Eos % (Auto) 2.1 % Baso % (Auto) 0.4 % Neut # (Auto) 6.40 (1.4-6.5) K/uL Lymph # (Auto) 1.47 (1.2-3.4) K/uL Day # (Auto) 0.42 (0.11-0.59) K/uL Eos # (Auto) 0.18 (0-0.5) K/uL Baso # (Auto) 0.03 (0-0.2) K/uL Immature Gran # (Auto) 0.03 H (0.00-0.02) K/uL PT 9.5 (9.0-12.0) Seconds INR 0.9 (0.9-1.1) APTT 26.0 (21.0-31.0) Seconds PTT Ratio 0.9 VBG pH (7.36-7.41) VBG pCO2 (38-50) mmHg VBG pO2 mmHg VBG HCO3 mmol/L VBG O2 Saturation % VBG Base Excess mEq/L Barometric Pressure mm/Hg Sodium 132 L (136-145) mmol/L Potassium 2.7 L (3.5-5.1) mmol/L Chloride 89 L (98-107) mmol/L Carbon Dioxide 34 H (21-32) mmol/L Anion Gap 9.0 (3-11) BUN 22 H (7-18) mg/dl Creatinine 1.23 (0.6-1.4) mg/dl Est Cr Clr Drug Dosing Not Reportable Est GFR ( Amer) 77.7 Est GFR (Non-Af Amer) 67.1 BUN/Creatinine Ratio 17.9 (10-20) Glucose 341 H* (70-99) mg/dl Calcium 8.0 L (8.5-10.1) mg/dl Magnesium 2.0 (1.8-2.4) mg/dl Total Bilirubin 0.5 (0.2-1) mg/dl AST 20 (15-37) U/L ALT 30 (12-78) U/L Alkaline Phosphatase 161 H (45-117) U/L Troponin I < 0.015 (0-0.045) ng/ml NT-Pro-B Natriuret Pep 81 (0-900) pg/ml Total Protein 7.1 (6.4-8.2) gm/dl Albumin 2.8 L (3.4-5.0) gm/dl Globulin 4.3 H (2.5-4.0) gm/dl Albumin/Globulin Ratio 0.7 L (0.9-2) Beta-Hydroxybutyric Acd (0.2-2.81) mg/dl Specimen Hemolysis Urine Color Urine Appearance (Clear) Urine pH (4.5-7.5) Ur Specific [place] (1.000-1.030) Urine Protein (Negative) Urine Glucose (UA) (Negative) Urine Ketones (Negative) Urine Blood (Negative) Urine Nitrite (Negative) Urine Bilirubin (Negative) Urine Urobilinogen (Negative) Ur Leukocyte Esterase (Negative) 07/01/20 07/01/20 Range/Units 15:42 16:08 WBC (4.8-10.8) K/uL RBC (4.7-6.1) M/uL Hgb (14.0-18.0) g/dL Hct (42-52) % MCV (80-100) fL MCH (25-34) pg MCHC (32-36) g/dL RDW Std Deviation (36.4-46.3) fL RDW Coeff of [place] (11.5-14.5) % Plt Count (130-400) K/uL MPV (7.4-10.4) fL Immature Gran % (Auto) % Neut % (Auto) % Lymph % (Auto) % Day % (Auto) % Eos % (Auto) % Baso % (Auto) % Neut # (Auto) (1.4-6.5) K/uL Lymph # (Auto) (1.2-3.4) K/uL Day # (Auto) (0.11-0.59) K/uL Eos # (Auto) (0-0.5) K/uL Baso # (Auto) (0-0.2) K/uL Immature Gran # (Auto) (0.00-0.02) K/uL PT (9.0-12.0) Seconds INR (0.9-1.1) APTT (21.0-31.0) Seconds PTT Ratio VBG pH 7.47 H (7.36-7.41) VBG pCO2 52 H (38-50) mmHg VBG pO2 48 mmHg VBG HCO3 37 mmol/L VBG O2 Saturation 82.1 % VBG Base Excess 11.1 mEq/L Barometric Pressure 729.6 mm/Hg Sodium (136-145) mmol/L Potassium (3.5-5.1) mmol/L Chloride (98-107) mmol/L Carbon Dioxide (21-32) mmol/L Anion Gap (3-11) BUN (7-18) mg/dl Creatinine (0.6-1.4) mg/dl Est Cr Clr Drug Dosing Est GFR ( Amer) Est GFR (Non-Af Amer) BUN/Creatinine Ratio (10-20) Glucose (70-99) mg/dl Calcium (8.5-10.1) mg/dl Magnesium (1.8-2.4) mg/dl Total Bilirubin (0.2-1) mg/dl AST (15-37) U/L ALT (12-78) U/L Alkaline Phosphatase (45-117) U/L Troponin I (0-0.045) ng/ml NT-Pro-B Natriuret Pep (0-900) pg/ml Total Protein (6.4-8.2) gm/dl Albumin (3.4-5.0) gm/dl Globulin (2.5-4.0) gm/dl Albumin/Globulin Ratio (0.9-2) Beta-Hydroxybutyric Acd (0.2-2.81) mg/dl Specimen Hemolysis Urine Color Yellow Urine Appearance Clear (Clear) Urine pH 6.5 (4.5-7.5) Ur Specific [place] 1.020 (1.000-1.030) Urine Protein Negative (Negative) Urine Glucose (UA) 3+ H (Negative) Urine Ketones Negative (Negative) Urine Blood Negative (Negative) Urine Nitrite Negative (Negative) Urine Bilirubin Negative (Negative) Urine Urobilinogen Negative (Negative) Ur Leukocyte Esterase Negative (Negative) Administered Medications Potassium Chloride (K Wilber / Wtr) 10 meq in 100 mls @ 100 mls/hr IV ONE ONE Stop: 07/01/20 18:11 Last Admin: 07/01/20 17:21 Dose: 100 mls/hr Documented by: [id number] Discontinued Medications Insulin Human Regular (Novolin R U-100 Per Unit) 4 units IV NOW STA Stop: 07/01/20 17:13 Last Admin: 07/01/20 17:22 Dose: 4 units Documented by: [id number] Cosigned by: [id number] Potassium Chloride (Klor-Con M20) 20 meq PO NOW STA Stop: 07/01/20 17:08 Last Admin: 07/01/20 17:21 Dose: 20 meq Documented by: [id number] Imaging Data Radiologist's Impression: XR chest 1V portable CLINICAL HISTORY: Dyspnea COMPARISON STUDY: Chest CT April 03, 2020. Chest radiograph April 21, 2020. FINDINGS: Lung volumes are normal. There is no pneumothorax or pleural effusion. There is no evidence for pulmonary edema. Mild cardiomegaly is unchanged. No consolidation is identified. Linear left basilar opacity suggests atelectasis. Exam is mildly compromised by suboptimal penetration. IMPRESSION: 1. No acute findings. 2. Stable cardiomegaly. 3. Linear left basilar opacity suggestive of atelectasis. ACT 112: Negative or not required by law. Electronically signed by: Melchor Reyes M.D. 07/01/2020 4:16 PM Dictated: 07/01/20 161 Transcribed: 07/01/201614 Blood Pressure Blood Pressure Findings: Normal blood pressure Discharge Plan Visit Data Chief Complaint: Leg Injury/Pain Stated Complaint: LEG PAIN ED Provider: Hubert Hirsch Discharge Problem: Acute hyperglycemia, Hypoxia, Fluid overload, Hypokalemia Patient Disposition: Being Evaluated by Hospitalist Condition: Good Forms Stand Alone Forms: [employer] Prescriptions Prescriptions: No Action Lactobacillus acidophilus 1 billion cell tablet 1 mmu cells PO TID RF: 0 cholecalciferol (vitamin D3) 2,000 unit capsule 2,000 unit PO DAILY RF: 0 Chantix 1 mg tablet 1 mg PO BID RF: 0 metformin 500 mg tablet extended release 24 hr 500 mg PO DAILY Qty: 30 RF: 0 (DME) lancets [OneTouch Delica Lancets] 30 gauge misc See Rx Instructions .ROUTE .MEDSUPPLY Qty: 100 RF: 1 (DME) blood sugar diagnostic [OneTouch Verio test strips] Strip See Rx Instructions .ROUTE .MEDSUPPLY Qty: 100 RF: 1 torsemide 20 mg tablet 80 mg PO BID RF: 0 spironolactone 50 mg tablet 50 mg PO BID RF: 0 potassium chloride 20 mEq Tablet Extended Release 20 meq PO HS 5 Days Qty: 5 RF: 0 atorvastatin 40 mg Tablet 40 mg PO HS RF: 0 sennosides [senna] 8.6 mg Tablet 2 tab PO DAILY PRN (Reason: Constipation) RF: 0 aspirin 81 mg Tablet,Delayed Release (Dr/Ec) 81 mg PO DAILY RF: 0 acetaminophen 500 mg Tablet 1,000 mg PO Q6H PRN (Reason: Pain) RF: 0 oxycodone-acetaminophen 5-325 mg Tablet 1 tab PO Q12 PRN (Reason: Pain) RF: 0 pantoprazole 40 mg Tablet,Delayed Release (Dr/Ec) 40 mg PO HS RF: 0 albuterol sulfate [Ventolin HFA] 90 mcg/actuation Hfa Aerosol Inhaler 2 puff INHALATION Q4 PRN (Reason: Shortness Of Breath) RF: 0 Trulicity 1.5 mg/0.5 mL pen injector 1.5 mg SUBCUT WK RF: 0 Androderm 4 mg/24 hr patch 24 hour 4 mg transdermal DAILY RF: 0 fluticasone propionate [Flonase Allergy Relief] 50 mcg/actuation spray,suspension 2 spray INTRANASAL DAILY PRN (Reason: Nasal Congestion) RF: 0 Spiriva with HandiHaler 18 mcg capsule, w/inhalation device 1 cap INHALATION DAILY RF: 0 Jardiance 10 mg tablet 10 mg PO DAILY RF: 0 sertraline 50 mg tablet 50 mg PO DAILY RF: 0 metolazone 2.5 mg tablet 2.5 mg PO UD Qty: 30 RF: 0 Lantus Solostar U-100 Insulin 100 unit/mL (3 mL) insulin pen 40 units SQ BID Qty: 15 RF: 1 Referrals Referrals: Chavo Roy DO [Primary Care Provider] -
[2020-07-01 15:58] LABS: Base Excess VBG 11.1 mEq/L; Basophils # (auto) 0.03 K/uL (0-0.2); Basophils % (auto) 0.4 %; Eosinophils # (auto) 0.18 K/uL (0-0.5); Eosinophils % (auto) 2.1 %; Hematocrit (blood only) 37.9 % (42-52); Hemoglobin 12.9 g/dL (14.0-18.0); Immature Granulocytes # (auto) 0.03 K/uL (0.00-0.02); Immature Granulocytes % (auto) 0.4 %; Lymphocytes # (auto) 1.47 K/uL (1.2-3.4); Lymphocytes % (auto) 17.2 %; Mean Corpuscular Hemoglobin 30.8 pg (25-34); Mean Corpuscular Volume 90.5 fL (80-100); Mean Platelet Volume 10.7 fL (7.4-10.4); Monocytes # (auto) 0.42 K/uL (0.11-0.59); Monocytes % (auto) 4.9 %; Oxygen Saturation VBG 82.1 %; Platelet Count 228 K/uL (130-400); RDW Coefficient of Variation 15.3 % (11.5-14.5); RDW Standard Deviation 50.2 fL (36.4-46.3); Red Blood Count 4.19 M/uL (4.7-6.1); White Blood Count 8.53 K/uL (4.8-10.8); pH VBG 7.47 (7.36-7.41)
[2020-07-01 16:11] LABS: INR 0.9 (0.9-1.1); Partial Thromboplastin Ratio 0.9; Prothrombin Time 9.5 Seconds (9.0-12.0)
--- NOTE | 2020-07-01 16:17 | XRay Report ---
XR chest 1V portable CLINICAL HISTORY: Dyspnea COMPARISON STUDY: Chest CT April 03, 2020. Chest radiograph April 21, 2020. FINDINGS: Lung volumes are normal. There is no pneumothorax or pleural effusion. There is no evidence for pulmonary edema. Mild cardiomegaly is unchanged. No consolidation is identified. Linear left bas ilar opacity suggests atelectasis. Exam is mildly compromised by suboptimal penetration. IMPRESSION: 1. No acute findings. 2. Stable cardiomegaly. 3. Linear left basilar opacity suggestive of atelectasis. ACT 112: Negative or not required by law. Electronically signed by: Melchor Reyes M.D. 07/01/2020 4:16 PM
[2020-07-01 16:27] LABS: Appearance Urine Clear (Clear); Bilirubin Urine Negative (Negative); Blood Urine Negative (Negative); Color Urine Yellow; Glucose Urine UA 3+ (Negative); Ketones Urine Negative (Negative); Leukocyte Esterase Urine Negative (Negative); Nitrite Urine Negative (Negative); Protein Urine Negative (Negative); Urobilinogen Urine Negative (Negative); pH Urine 6.5 (4.5-7.5)
[2020-07-01 16:52] LABS: Alanine Aminotransferase 30 U/L (12-78); Albumin Globulin Ratio 0.7 (0.9-2); Albumin Level 2.8 gm/dl (3.4-5.0); Alkaline Phosphatase 161 U/L (45-117); Aspartate Aminotransferase 20 U/L (15-37); BUN Creatinine Ratio 17.9 (10-20); Bilirubin,Total 0.5 mg/dl (0.2-1); Blood Urea Nitrogen 22 mg/dl (7-18); Carbon Dioxide 34 mmol/L (21-32); Chloride 89 mmol/L (98-107); Est GFR (African American) 77.7; Est GFR (Non-African American) 67.1; Globulin 4.3 gm/dl (2.5-4.0); Glucose 341 mg/dl (70-99); NT Pro B Type Natriuretic Pept 81 pg/ml (0-900); Potassium 2.7 mmol/L (3.5-5.1); Sodium 132 mmol/L (136-145); Total Protein 7.1 gm/dl (6.4-8.2); Troponin I < 0.015 ng/ml (0-0.045)
[2020-07-01] MEDS ORDERED: POTASSIUM CHLORIDE 20 MEQ TABCR PO STA ×2 (17:07→22:17)
[2020-07-01] MEDS ORDERED: POTASSIUM CHLORIDE / WTR 10 MEQ/100 ML PLCT IV ONE (17:12)
[2020-07-01] MEDS ORDERED: NovoLIN-R INSULIN PER UNIT CHARGE IV STA (17:12)
[2020-07-01] MEDS ORDERED: ALUMINUM/MAGNESIUM SUSP 30 ML UDC PO PRN (18:02)
[2020-07-01] MEDS ORDERED: POLYETHYLENE (MIRALAX) 17 GM PACK PO PRN (18:02)
[2020-07-01] MEDS ORDERED: MAGNESIUM HYDROXIDE SUSP 30 ML UDC PO PRN (18:02)
[2020-07-01] MEDS ORDERED: PHARMACY GLYCEMIC MGMT CONSULT STA (18:09)
[2020-07-01 18:23] LABS: D Dimer 390 ug/L FEU (0-500)
--- NOTE | 2020-07-01 18:30 | History & Physical Report ---
Date of Service July 01, 2020 Assessment & Plan (1) Acute diastolic congestive heart failure: Volume overload/acute on chronic diastolic heart failure Presented with shortness of breath increased weight. worsening of bilateral lower extremity swelling History of diastolic dysfunction Echo on 04/22/2020: Moderate concentric left ventricular hypertrophy. Ejection fraction 60-65% Grade 1 diastolic dysfunction. Patient was given IV Lasix in the ER, will continue 40 mg IV twice daily Monitor in PCU/telemetry Cardiology eval requested, Low-salt diet, fluid restriction 1500 mL a day Chronic bilateral lower extremity swelling/lymphedema: Resents with worsening of swelling in last few days Continue IV Lasix as outlined above Lower extremity Dopplers ordered to rule out DVT LEFT FOOT PAIN : check xray was recently started with PO keflex ordered for IV rocephin HYPONATREMIA : hard to assess intravascular vol status -given morbid obesity , body habitus clinically appears to be markedly vol overloaded cont IV lasix ordered for fluid restriction nephrology consult requested Hypokalemia: Potassium 2.7, possible secondary to home diuretics dose Patient denies of any nausea vomiting or diarrhea P.o. and IV potassium replacement done in ER, will repeat lab in 4 hours Mag level within normal limit Type 2 diabetes: Presented with hyperglycemia, Very poorly controlled, last hemoglobin A1c 10.6 Pharmacy consulted for glycemic management Continue basal Lantus, added insulin sliding scale Blood sugar 341 in ER, no evidence of DKA with normal bicarb, normal beta hydroxybutyrate given 10 U of iv insulin in ER History of obesity hypoventilation syndrome/obstructive sleep apnea Continue BiPAP at night DVT prophylaxis: Moderate to high risk, subcu heparin CODE STATUS: Full code Disposition: Expected to be discharged home when medically stable Family medicine follow-up with Dr. Roy at [facility]. History of Present Illness Chief Complaint: Leg swelling, shortness of breath Primary Care Provider: Chavo Roy DO This is a 54-year-old male with past medical history of morbid obesity chronic diastolic heart failure, type 2 diabetes, hypertension hyperlipidemia came to the ED for evaluation of swelling of bilateral legs For the past few weeks patient noted increased weight gain, difficulty breathing with activity , worsening of swelling of both legs his SOB continued worsened reports of taking his diuretics does not follow low salt diet left foot pain noted 4 days back pt does not remember any trauma -has significant lower ext neuropathy Patient has history of obstructive sleep apnea/obesity hypoventilation syndrome reports of orthopnea -sits up multiple times at night to breath has been using Bipap at night intermittently No fever or chills, no cough Allergies Allergy/AdvReac Type Severity Reaction Status Date / Time vancomycin Allergy Intermediate Hives Verified 07/01/20 17:54 hydrocodone [From Vicodin] Allergy Mild Rash Verified 07/01/20 17:54 Home Medications Home Medications Medication Instructions Recorded Confirmed Type acetaminophen 500 mg PO Q6H PRN 04/03/19 07/01/20 History albuterol sulfate [Ventolin HFA] 2 puff INHALATION Q4H PRN 04/03/19 07/01/20 History aspirin 81 mg PO DAILY 04/03/19 07/01/20 History pantoprazole 40 mg PO QAM 04/03/19 07/01/20 History sennosides [senna] 17.2 mg PO DAILY PRN 04/03/19 07/01/20 History cholecalciferol (vitamin D3) 2,000 unit PO DAILY 08/16/19 07/01/20 History Chantix 1 mg PO BID 04/02/20 07/01/20 History spironolactone 50 mg PO BID 04/08/20 07/01/20 History torsemide 80 mg PO BID 04/08/20 07/01/20 History Androderm 4 mg TRANSDERMAL DAILY 04/22/20 07/01/20 History Trulicity 1.5 mg SUBCUT WK 04/22/20 07/01/20 History sertraline 50 mg PO DAILY 04/22/20 07/01/20 History Lantus Solostar U-100 Insulin 40 units SQ HS 07/01/20 07/01/20 History ammonium lactate 1 applic TOPICAL BID PRN 07/01/20 07/01/20 History cephalexin 500 mg PO BID 07/01/20 07/01/20 History clotrimazole 10 mg MUCOUS MEMBRANE 5XD 07/01/20 07/01/20 History insulin aspart U-100 [Novolog 10 unit SUBCUT AC 07/01/20 07/01/20 History Flexpen U-100 Insulin] metformin 2,000 mg PO DAILY 07/01/20 07/01/20 History metolazone 2.5 mg PO 3XWK 07/01/20 07/01/20 History nystatin [Nystop] 1 applic TOPICAL TID 07/01/20 07/01/20 History potassium chloride 40 meq PO DAILY 07/01/20 07/01/20 History Past Med/Surg History Medical History Asthma Bulging lumbar disc Bulging of cervical intervertebral disc Chronic back pain Chronic right-sided CHF (congestive heart failure) COPD (chronic obstructive pulmonary disease) Diabetes GERD with apnea Gout Hyperlipidemia Hypertension Morbid obesity with BMI of 50.0-59.9, adult Myocardial Infarction ? 10 yrs ago Osteoarthritis RBBB Recurrent cellulitis Seizure Possible seizure in 2016 evaluation normal per patient , no problems since Sleep apnea bipap with 2L oxygen Thyroid nodule just monitoring Tobacco abuse Surgical History History of cardiac cath ? 10yrs ago--no stents History of cholecystectomy History of phacoemulsification of cataract of left eye with intraocular lens implantation History of repair of anterior cruciate ligament of right knee History of toe surgery right big toe History of tooth extraction Family History Aunt Family history of diabetes mellitus Mother Diabetes Father Cancer of kidney Heart disease Other No family history of adverse response to anesthesia Social History Smoking Status: Current every day smoker Tobacco Type: Cigarettes Cigarettes Per Day: 10-20/day; Second Hand Exposure: Yes; Do You Dip or Chew Tobacco: No; Tobacco Cessation Education Requested by Patient: No Hx Alcohol Use: Yes Alcohol type: other Hx Substance Use: No Preferred Language: Occitan Communication Ability: Effective Munitions Handler Required: No Beliefs That Will Affect Care: None marital status: Current Living Situation: Spouse Current Living Situation Comment: Lives with and 2 kids Other Information That Helps Us Care for You: No Feels Safe at Home: Yes Safety Concerns: Feels Safe At This Time Review of Systems Review of Systems: All systems reviewed & are unremarkable except as noted in HPI & below Respiratory: + dyspnea, + dyspnea on exertion and + snoring orthpnea Cardiovascular: + dyspnea, + dyspnea at rest and + dyspnea on exertion Additional Comments: severe bilateral lower extremity swelling Gastrointestinal: no abdominal pain and no nausea Integumentary: severe bilateral swelling , with pain and swelling on left dorsal foot Physical Exam Constitutional: WD/WN, vitals as above + morbidly obese morbid obesity Eyes: + anicteric sclerae Respiratory: no cough Auscultation: + diminished lung sounds Cardiovascular: Rate/Rhythm: regular rate and regular rhythm Extremities: + calf tenderness, + pedal edema and + edema severe bilateral lower ext edema Gastrointestinal (Abdomen): Percussion/Palpation: abdomen soft; abdomen nontender obese Musculoskeletal: severe lower extremity swelling , lymphadenopathy , with chronic venous stasis change pain and swelling with increased warmth on left dorsal foot, no open wound noted Neurologic: PERRL, EOMI, accommodation nl, no face palsy, no dysarthria Results & Data Results & Data ([facility]) Vital Signs (Past 12 Hours) Vital Signs Temp Pulse Pulse Resp BP BP Pulse Ox 07/01/20 17:00 81 18 139/79 98 07/01/20 16:03 98 07/01/20 14:58 36.9 C 85 22 138/64 89 L Diagnostic Findings Portable chest x-ray 1 view: 07/01/2020 IMPRESSION: 1. No acute findings. 2. Stable cardiomegaly. 3. Linear left basilar opacity suggestive of atelectasis. Code Status & VTE Plan VTE Prophylaxis Plan VTE Prophylaxis will be ordered: Yes
--- NOTE | 2020-07-01 20:14 | Ultrasound Report ---
ULTRASOUND BILATERAL LOWER EXTREMITY VENOUS CLINICAL HISTORY: Lower extremity edema. COMPARISON STUDY: Bilateral lower extremity venous ultrasound dated 04/22/2020. TECHNIQUE: Real-time, grayscale, and color Doppler sonography of the deep veins of the right and left lower extremity was performed from the inguinal crease to the calf. Compression and augmentation wer e utilized. Examination is significantly degraded by large body habitus and soft tissue edema. FINDINGS: There is no sonographic evidence of deep venous thrombosis identified in the right or left lower extremity. The common femoral, proximal portions of the superficial femoral veins, and the left popliteal vein are patent and normally compressible bilaterally. The distal superficial femoral vein s and the left popliteal vein were not visualized. The calf veins were not identified. The greater sa phenous vein and the profunda femoris vein at the junction with the common femoral vein are clear in both legs. A left popliteal cyst measures 6.1 x 1.8 x 3.7 cm. IMPRESSION: 1. There is no sonographic evidence of deep venous thrombosis in the visualized vessels of the right or left lower extremity. See above. 2. Left-sided Valdovinos's cyst. ACT 112: Negative or not required by law. Electronically signed by: Wilfrid Roy M.D. 07/01/2020 8:12 PM
[2020-07-01] MEDS ORDERED: SENNA 8.6 MG TAB PO PRN (20:27)
[2020-07-01] MEDS ORDERED: GLUCOSE 10 TABS/TUBE PO PRN (20:27)
[2020-07-01] MEDS ORDERED: DEXTROSE 50% 50 ML SYRINGE IV PRN (20:27)
[2020-07-01] MEDS ORDERED: FLUTICASONE PROPIONATE NA SPR 16 GM BTL NAE PRN (20:27)
[2020-07-01] MEDS ORDERED: OXYCODONE/ACETAMINOPHEN 5mg/325mg TAB PO PRN (20:27)
[2020-07-01] MEDS ORDERED: GLUCOSE 40% GEL 15 GM TUBE PO PRN (20:27)
[2020-07-01] MEDS ORDERED: GLUCAGON FOR INJ 1 MG VIAL SQ PRN (20:27)
[2020-07-01] MEDS ORDERED: CARBOHYDRATES FOR HYPOGLYCEMIA PO PRN (20:27)
[2020-07-01] MEDS ORDERED: POTASSIUM CHLORIDE 20 MEQ TABCR PO SCH (21:00)
[2020-07-01] MEDS ORDERED: INSULIN GLARGINE SOLOSTAR 100 UNITS/ML 3 ML PEN SQ SCH (21:00)
[2020-07-01 21:10] LABS: Blood Urea Nitrogen 21 mg/dl (7-18); Calcium 8.5 mg/dl (8.5-10.1); Carbon Dioxide 34 mmol/L (21-32); Chloride 89 mmol/L (98-107); Est GFR (African American) 99.8; Est GFR (Non-African American) 86.2; Glucose 300 mg/dl (70-99); Potassium 2.6 mmol/L (3.5-5.1); Sodium 129 mmol/L (136-145)
[2020-07-01] MEDS ORDERED: PATIENT'S HEIGHT AND/OR WEIGHT NEEDED SCH (21:15)
[2020-07-01] MEDS ORDERED: PHARMACY GLYCEMIC MGMT CONSULT PRN (21:26)
[2020-07-01] MEDS ORDERED: FUROSEMIDE 40 MG in SYRINGE 0 ML IV ONE (22:15)
[2020-07-01] MEDS: INSULIN ASPART 100 UNITS/ML 3 ML PEN SC SCH (22:36)
[2020-07-01] MEDS: cefTRIAXone SODIUM 2,000 MG in DEXTROSE 5% 50 ML IV SCH (22:39)
[2020-07-01] MEDS: SPIRONOLACTONE 25 MG TAB PO SCH (22:40)
[2020-07-01] MEDS: HEPARIN SODIUM (PORCINE) 7,500 UNITS in SYRINGE 0 ML SQ SCH (23:11)
[2020-07-02 01:13] LABS: BUN Creatinine Ratio 18.7 (10-20); Calcium 8.2 mg/dl (8.5-10.1); Creatinine Clr Calc Pharmacy 151.3 ml/min; Est GFR (Non-African American) 79.4; Potassium 2.7 mmol/L (3.5-5.1)
[2020-07-02 01:28] LABS: Beta-Hydroxybutyrate 1.11 mg/dl (0.2-2.81)
[2020-07-02] MEDS: HEPARIN SODIUM (PORCINE) 7,500 UNITS in SYRINGE 0 ML SQ SCH ×3 (06:06→21:45)
[2020-07-02 06:35] LABS: Estimated Average Glucose 269 mg/dl
--- NOTE | 2020-07-02 06:55 | XRay Report ---
XR foot LT min 3V routine CLINICAL HISTORY: left foot pain and swelling COMPARISON: None. DISCUSSION: The bones and joint spaces appear intact. There is no evidence of fracture, dislocation o r bony disease. Considerable dorsal soft tissue edema IMPRESSION: No acute bony abnormality. Considerable dorsal soft tissue edema. ACT 112: Negative or not required by law. The above report was generated using voice recognition software. It may contain grammatical, syntax or spelling errors. Electronically signed by: Pancho Gupta M.D. 07/02/2020 6:54 AM
[2020-07-02 07:45] LABS: Hematocrit (blood only) 39.5 % (42-52); Hemoglobin 13.4 g/dL (14.0-18.0); Mean Corpuscular Hemoglobin 30.7 pg (25-34); Mean Corpuscular Hgb Conc 33.9 g/dL (32-36); Mean Corpuscular Volume 90.6 fL (80-100); Mean Platelet Volume 10.8 fL (7.4-10.4); Platelet Count 231 K/uL (130-400); RDW Coefficient of Variation 15.4 % (11.5-14.5); RDW Standard Deviation 50.4 fL (36.4-46.3); Red Blood Count 4.36 M/uL (4.7-6.1); White Blood Count 8.15 K/uL (4.8-10.8)
[2020-07-02 08:09] LABS: BUN Creatinine Ratio 20.6 (10-20); Creatinine Clr Calc Pharmacy 162.9 ml/min; Est GFR (African American) 101.1; Est GFR (Non-African American) 87.2
--- NOTE | 2020-07-02 08:21 | Cardiology Consultation ---
Date of Consultation July 02, 2020 Assessment & Plan (1) Acute on chronic right-sided congestive heart failure: Multifactorial volume overload secondary to morbid obesity/hypoventilatory syndrome, non compliance with BIPAP/O2 therapy Recommend ongoing IV diuretics at Furosemide 40 mg BID for now Once potassium has improved, consider titration to 80 mg BID Monitor I+O's (2) Hypokalemia: Supplement with oral potassium continue spironolactone 50 mg BID Monitor (3) Pickwickian syndrome: We discussed his underlying obesity is playing a large role in his condition. He was previously referred to GI nutrition weight loss clinic for evaluation of bariatric surgery. He declined/refused and is still adamant about not proceeding with this option. (4) SIDRA treated with BiPAP: He is non compliant with BIPAP here at the hospital and at home, likely contributing to his volume overload and recurrent admissions. (5) Depression: Patient voices frustration regarding recurrent medical problems and recurrent admissions. Reports he "wants to go home and ". Psych consult recommended and placed. Case discussed with Dr. Reyes. Will follow during hospital course. Due to body habitus, prior echo was limited. no need to repeat at this time. Supervising Physician Co-Signing Physician Notes I agree with the physician health care assistant's findings and plan as documented with the following additions. Assessment and Plan: Right-sided congestive heart failure sensation, hypokalemia -Agree with IV furosemide lactone. -Patient expressed suicidal ideations and his conversation with Mrs Guzman and therefore psychiatry has been consulted. DVT prophylaxis: Subcutaneous heparin, dose adjusted for patient's weight, 7500 subcu every 8 hours Neftaly Reyes, DO History of Present Illness Reason for Consultation: Volume overload; electrolyte disturbances; syncope Requesting Physician: Dr. Kaminski Attending Physician: Dr. Reyes History of Present Illness Patient is a complex 54 year old male known to [facility] (following with Dr. Alston/Eduardo as outpatient). History includes 1. Morbid obesity 2. Obstructive sleep apnea O2 and BiPAP dependent (with non compliance) 3. Pickwickian syndrome with right heart/diastolic failure secondary to obesity/SIDRA 4. Chronic stasis edema 5. Diagnostic cardiac catheterization per records 10/2016 with minor nonobstructive coronary disease; preserved LV function per last echo 6. DM with poor control He has had multiple admission for multifactorial volume overload and LE cellulitis over the last few months. He has also followed closely with outpatient CHF clinic. He called his patient case manager yesterday reporting signfiant weight gain (non compliant with automatic scales), increased edema and SOB, glucose levels > 500 at home, and possible recurrent syncope. He was referred to the ER for evaluation of his symptoms. Upon arrival patient was found to have signfiantly elevated glucose readings, started on insulin, found to have significant hypokalemia and supplementation started. Troponin was negative. EKG without acute changes. He was started on IV lasix for diuresis. Chest xray was clear without pleural effusions. BNP was normal. At time of consult, patient reported he is 'miserable'. He told me he was tired of "dealing with all this" and ready to give up. Wants to go home and . He reports he "does everything right at home and doesn't understand why this happens. He reported that he has been compliant with all meds. He is up 16 kg in the last few weeks. He reports non compliance with BIPAP at home. Declined use of BIPAP here. Falling asleep in chair mid sentence. I asked him about his "syncope" that he reported to patient case manager. he reports this as possible "falling asleep" and kept dropping his phone at home. No true LOC or injuries sustained. He has been non compliant with [facility] scales at home as well. He diuresed approx 3.5 L overnight. Down 1.3 kg. Still signfiantly edematous. No chest pain. no dizziness. Ongoing SOB noted. Allergies Allergy/AdvReac Type Severity Reaction Status Date / Time vancomycin Allergy Intermediate Hives Verified 07/01/20 17:54 hydrocodone [From Vicodin] Allergy Mild Rash Verified 07/01/20 17:54 Home Medications Home Medications Medication Instructions Recorded Confirmed Type acetaminophen 500 mg PO Q6H PRN 04/03/19 07/01/20 History albuterol sulfate [Ventolin HFA] 2 puff INHALATION Q4H PRN 04/03/19 07/01/20 History aspirin 81 mg PO DAILY 04/03/19 07/01/20 History pantoprazole 40 mg PO QAM 04/03/19 07/01/20 History sennosides [senna] 17.2 mg PO DAILY PRN 04/03/19 07/01/20 History cholecalciferol (vitamin D3) 2,000 unit PO DAILY 08/16/19 07/01/20 History Chantix 1 mg PO BID 04/02/20 07/01/20 History spironolactone 50 mg PO BID 04/08/20 07/01/20 History torsemide 80 mg PO BID 04/08/20 07/01/20 History Androderm 4 mg TRANSDERMAL DAILY 04/22/20 07/01/20 History Trulicity 1.5 mg SUBCUT WK 04/22/20 07/01/20 History sertraline 50 mg PO DAILY 04/22/20 07/01/20 History Lantus Solostar U-100 Insulin 40 units SQ HS 07/01/20 07/01/20 History ammonium lactate 1 applic TOPICAL BID PRN 07/01/20 07/01/20 History cephalexin 500 mg PO BID 07/01/20 07/01/20 History clotrimazole 10 mg MUCOUS MEMBRANE 5XD 07/01/20 07/01/20 History insulin aspart U-100 [Novolog 10 unit SUBCUT AC 07/01/20 07/01/20 History Flexpen U-100 Insulin] metformin 2,000 mg PO DAILY 07/01/20 07/01/20 History metolazone 2.5 mg PO 3XWK 07/01/20 07/01/20 History nystatin [Nystop] 1 applic TOPICAL TID 07/01/20 07/01/20 History potassium chloride 40 meq PO DAILY 07/01/20 07/01/20 History Patient History Medical History Asthma Bulging lumbar disc Bulging of cervical intervertebral disc Chronic back pain Chronic right-sided CHF (congestive heart failure) COPD (chronic obstructive pulmonary disease) Diabetes GERD with apnea Gout Hyperlipidemia Hypertension Morbid obesity with BMI of 50.0-59.9, adult Myocardial Infarction ? 10 yrs ago Osteoarthritis RBBB Recurrent cellulitis Seizure Possible seizure in 2016 evaluation normal per patient , no problems since Sleep apnea bipap with 2L oxygen Thyroid nodule just monitoring Tobacco abuse Surgical History History of cardiac cath ? 10yrs ago--no stents History of cholecystectomy History of phacoemulsification of cataract of left eye with intraocular lens implantation History of repair of anterior cruciate ligament of right knee History of toe surgery right big toe History of tooth extraction Family History Aunt Family history of diabetes mellitus Mother Diabetes Father Cancer of kidney Heart disease Other No family history of adverse response to anesthesia Social History Smoking Status: Current every day smoker Tobacco Type: Cigarettes Cigarettes Per Day: 10-20/day; Second Hand Exposure: Yes; Do You Dip or Chew Tobacco: No; Tobacco Cessation Education Requested by Patient: No Hx Alcohol Use: Yes Alcohol type: other Hx Substance Use: No Preferred Language: Egyptian Communication Ability: Effective School Crossing Guard Required: No Beliefs That Will Affect Care: None marital status: Current Living Situation: Spouse Current Living Situation Comment: Lives with and 2 kids Other Information That Helps Us Care for You: No Feels Safe at Home: Yes Safety Concerns: Feels Safe At This Time Review of Systems Review of Systems: All systems reviewed & are unremarkable except as noted in HPI & below Physical Exam Constitutional: WD/WN, vitals as above + morbidly obese; no acute distress Respiratory: + labored breathing Auscultation: + diminished lung sounds Cardiovascular: Rate/Rhythm: regular rhythm Extremities: + edema (2-3+ LE edema b/l with hard indurated chronic stasis changes) Gastrointestinal (Abdomen): normal bowel sounds, soft, nontender, no hepatosplenomegaly Neurologic: PERRL, EOMI, accommodation nl, no face palsy, no dysarthria Psychiatric: Mood: + depressed mood and + irritable mood Judgement: + poor judgement Results & Data ([facility]) Vital Signs (Past 12 Hours) Vital Signs Temp Pulse Resp BP Pulse Ox 07/02/20 03:25 36.4 C L 79 16 123/88 91 07/01/20 23:24 36.4 C L 78 20 135/73 87 L 07/01/20 20:45 36.7 C 73 22 132/81 91 Laboratory Results 07/02/20 07/02/20 07/02/20 Range/Units 07:52 07:51 07:18 WBC (4.8-10.8) K/uL RBC (4.7-6.1) M/uL Hgb (14.0-18.0) g/dL Hct (42-52) % MCV (80-100) fL MCH (25-34) pg MCHC (32-36) g/dL RDW Std Deviation (36.4-46.3) fL RDW Coeff of [place] (11.5-14.5) % Plt Count (130-400) K/uL MPV (7.4-10.4) fL Immature Gran % (Auto) % Neut % (Auto) % Lymph % (Auto) % [place] % (Auto) % Eos % (Auto) % Baso % (Auto) % Neut # (Auto) (1.4-6.5) K/uL Lymph # (Auto) (1.2-3.4) K/uL [place] # (Auto) (0.11-0.59) K/uL Eos # (Auto) (0-0.5) K/uL Baso # (Auto) (0-0.2) K/uL Immature Gran # (Auto) (0.00-0.02) K/uL PT (9.0-12.0) Seconds INR (0.9-1.1) APTT (21.0-31.0) Seconds PTT Ratio D-Dimer (0-500) ug/L FEU VBG pH (7.36-7.41) VBG pCO2 (38-50) mmHg VBG pO2 mmHg VBG HCO3 mmol/L VBG O2 Saturation % VBG Base Excess mEq/L Barometric Pressure mm/Hg Sodium 131 L (136-145) mmol/L Potassium (3.5-5.1) mmol/L Chloride 89 L (98-107) mmol/L Carbon Dioxide 36 H (21-32) mmol/L Anion Gap 6.0 (3-11) BUN 20 H (7-18) mg/dl Creatinine 0.99 (0.6-1.4) mg/dl Est Cr Clr Drug Dosing 162.9 Est GFR ( Amer) 101.1 Est GFR (Non-Af Amer) 87.2 BUN/Creatinine Ratio 20.6 H (10-20) Glucose 306 H* (70-99) mg/dl POC Glucose 330 H* 310 H* (70-99) mg/dl Estimat Average Glucose mg/dl Hemoglobin A1c (4.5-5.6) % Lactate Calcium 9.0 (8.5-10.1) mg/dl Magnesium (1.8-2.4) mg/dl Total Bilirubin (0.2-1) mg/dl AST (15-37) U/L ALT (12-78) U/L Alkaline Phosphatase (45-117) U/L Troponin I (0-0.045) ng/ml NT-Pro-B Natriuret Pep (0-900) pg/ml Total Protein (6.4-8.2) gm/dl Albumin (3.4-5.0) gm/dl Globulin (2.5-4.0) gm/dl Albumin/Globulin Ratio (0.9-2) Beta-Hydroxybutyric Acd (0.2-2.81) mg/dl Procalcitonin (0-0.5) ng/ml Specimen Hemolysis Urine Color Urine Appearance (Clear) Urine pH (4.5-7.5) Ur Specific [place] (1.000-1.030) Urine Protein (Negative) Urine Glucose (UA) (Negative) Urine Ketones (Negative) Urine Blood (Negative) Urine Nitrite (Negative) Urine Bilirubin (Negative) Urine Urobilinogen (Negative) Ur Leukocyte Esterase (Negative) 07/02/20 07/02/20 07/01/20 Range/Units 07:18 00:24 20:47 WBC 8.15 (4.8-10.8) K/uL RBC 4.36 L (4.7-6.1) M/uL Hgb 13.4 L (14.0-18.0) g/dL Hct 39.5 L (42-52) % MCV 90.6 (80-100) fL MCH 30.7 (25-34) pg MCHC 33.9 (32-36) g/dL RDW Std Deviation 50.4 H (36.4-46.3) fL RDW Coeff of [place] 15.4 H (11.5-14.5) % Plt Count 231 (130-400) K/uL MPV 10.8 H (7.4-10.4) fL Immature Gran % (Auto) % Neut % (Auto) % Lymph % (Auto) % [place] % (Auto) % Eos % (Auto) % Baso % (Auto) % Neut # (Auto) (1.4-6.5) K/uL Lymph # (Auto) (1.2-3.4) K/uL [place] # (Auto) (0.11-0.59) K/uL Eos # (Auto) (0-0.5) K/uL Baso # (Auto) (0-0.2) K/uL Immature Gran # (Auto) (0.00-0.02) K/uL PT (9.0-12.0) Seconds INR (0.9-1.1) APTT (21.0-31.0) Seconds PTT Ratio D-Dimer (0-500) ug/L FEU VBG pH (7.36-7.41) VBG pCO2 (38-50) mmHg VBG pO2 mmHg VBG HCO3 mmol/L VBG O2 Saturation % VBG Base Excess mEq/L Barometric Pressure mm/Hg Sodium 133 L (136-145) mmol/L Potassium 2.7 L (3.5-5.1) mmol/L Chloride 91 L (98-107) mmol/L Carbon Dioxide 32 (21-32) mmol/L Anion Gap 10.0 (3-11) BUN 20 H (7-18) mg/dl Creatinine 1.07 (0.6-1.4) mg/dl Est Cr Clr Drug Dosing 151.3 Est GFR ( Amer) 92.0 Est GFR (Non-Af Amer) 79.4 BUN/Creatinine Ratio 18.7 (10-20) Glucose 320 H* (70-99) mg/dl POC Glucose 357 H* (70-99) mg/dl Estimat Average Glucose mg/dl Hemoglobin A1c (4.5-5.6) % Lactate Calcium 8.2 L (8.5-10.1) mg/dl Magnesium (1.8-2.4) mg/dl Total Bilirubin (0.2-1) mg/dl AST (15-37) U/L ALT (12-78) U/L Alkaline Phosphatase (45-117) U/L Troponin I (0-0.045) ng/ml NT-Pro-B Natriuret Pep (0-900) pg/ml Total Protein (6.4-8.2) gm/dl Albumin (3.4-5.0) gm/dl Globulin (2.5-4.0) gm/dl Albumin/Globulin Ratio (0.9-2) Beta-Hydroxybutyric Acd 1.11 (0.2-2.81) mg/dl Procalcitonin (0-0.5) ng/ml Specimen Hemolysis Urine Color Urine Appearance (Clear) Urine pH (4.5-7.5) Ur Specific [place] (1.000-1.030) Urine Protein (Negative) Urine Glucose (UA) (Negative) Urine Ketones (Negative) Urine Blood (Negative) Urine Nitrite (Negative) Urine Bilirubin (Negative) Urine Urobilinogen (Negative) Ur Leukocyte Esterase (Negative) 07/01/20 07/01/20 07/01/20 Range/Units 20:45 20:43 20:43 WBC (4.8-10.8) K/uL RBC (4.7-6.1) M/uL Hgb (14.0-18.0) g/dL Hct (42-52) % MCV (80-100) fL MCH (25-34) pg MCHC (32-36) g/dL RDW Std Deviation (36.4-46.3) fL RDW Coeff of [place] (11.5-14.5) % Plt Count (130-400) K/uL MPV (7.4-10.4) fL Immature Gran % (Auto) % Neut % (Auto) % Lymph % (Auto) % [place] % (Auto) % Eos % (Auto) % Baso % (Auto) % Neut # (Auto) (1.4-6.5) K/uL Lymph # (Auto) (1.2-3.4) K/uL [place] # (Auto) (0.11-0.59) K/uL Eos # (Auto) (0-0.5) K/uL Baso # (Auto) (0-0.2) K/uL Immature Gran # (Auto) (0.00-0.02) K/uL PT (9.0-12.0) Seconds INR (0.9-1.1) APTT (21.0-31.0) Seconds PTT Ratio D-Dimer (0-500) ug/L FEU VBG pH (7.36-7.41) VBG pCO2 (38-50) mmHg VBG pO2 mmHg VBG HCO3 mmol/L VBG O2 Saturation % VBG Base Excess mEq/L Barometric Pressure mm/Hg Sodium 129 L (136-145) mmol/L Potassium 2.6 L (3.5-5.1) mmol/L Chloride 89 L (98-107) mmol/L Carbon Dioxide 34 H (21-32) mmol/L Anion Gap 6.0 (3-11) BUN 21 H (7-18) mg/dl Creatinine 1.00 (0.6-1.4) mg/dl Est Cr Clr Drug Dosing Not Reportable Est GFR ( Amer) 99.8 Est GFR (Non-Af Amer) 86.2 BUN/Creatinine Ratio 21.0 H (10-20) Glucose 300 H (70-99) mg/dl POC Glucose 323 H* (70-99) mg/dl Estimat Average Glucose mg/dl Hemoglobin A1c (4.5-5.6) % Lactate 0.6 Calcium 8.5 (8.5-10.1) mg/dl Magnesium (1.8-2.4) mg/dl Total Bilirubin (0.2-1) mg/dl AST (15-37) U/L ALT (12-78) U/L Alkaline Phosphatase (45-117) U/L Troponin I (0-0.045) ng/ml NT-Pro-B Natriuret Pep (0-900) pg/ml Total Protein (6.4-8.2) gm/dl Albumin (3.4-5.0) gm/dl Globulin (2.5-4.0) gm/dl Albumin/Globulin Ratio (0.9-2) Beta-Hydroxybutyric Acd (0.2-2.81) mg/dl Procalcitonin (0-0.5) ng/ml Specimen Hemolysis Urine Color Urine Appearance (Clear) Urine pH (4.5-7.5) Ur Specific [place] (1.000-1.030) Urine Protein (Negative) Urine Glucose (UA) (Negative) Urine Ketones (Negative) Urine Blood (Negative) Urine Nitrite (Negative) Urine Bilirubin (Negative) Urine Urobilinogen (Negative) Ur Leukocyte Esterase (Negative) 07/01/20 07/01/20 07/01/20 Range/Units 18:39 17:14 16:08 WBC (4.8-10.8) K/uL RBC (4.7-6.1) M/uL Hgb (14.0-18.0) g/dL Hct (42-52) % MCV (80-100) fL MCH (25-34) pg MCHC (32-36) g/dL RDW Std Deviation (36.4-46.3) fL RDW Coeff of [place] (11.5-14.5) % Plt Count (130-400) K/uL MPV (7.4-10.4) fL Immature Gran % (Auto) % Neut % (Auto) % Lymph % (Auto) % [place] % (Auto) % Eos % (Auto) % Baso % (Auto) % Neut # (Auto) (1.4-6.5) K/uL Lymph # (Auto) (1.2-3.4) K/uL [place] # (Auto) (0.11-0.59) K/uL Eos # (Auto) (0-0.5) K/uL Baso # (Auto) (0-0.2) K/uL Immature Gran # (Auto) (0.00-0.02) K/uL PT (9.0-12.0) Seconds INR (0.9-1.1) APTT (21.0-31.0) Seconds PTT Ratio D-Dimer (0-500) ug/L FEU VBG pH (7.36-7.41) VBG pCO2 (38-50) mmHg VBG pO2 mmHg VBG HCO3 mmol/L VBG O2 Saturation % VBG Base Excess mEq/L Barometric Pressure mm/Hg Sodium (136-145) mmol/L Potassium (3.5-5.1) mmol/L Chloride (98-107) mmol/L Carbon Dioxide (21-32) mmol/L Anion Gap (3-11) BUN (7-18) mg/dl Creatinine (0.6-1.4) mg/dl Est Cr Clr Drug Dosing Est GFR ( Amer) Est GFR (Non-Af Amer) BUN/Creatinine Ratio (10-20) Glucose (70-99) mg/dl POC Glucose (70-99) mg/dl Estimat Average Glucose mg/dl Hemoglobin A1c (4.5-5.6) % Lactate Cancelled Calcium (8.5-10.1) mg/dl Magnesium (1.8-2.4) mg/dl Total Bilirubin (0.2-1) mg/dl AST (15-37) U/L ALT (12-78) U/L Alkaline Phosphatase (45-117) U/L Troponin I (0-0.045) ng/ml NT-Pro-B Natriuret Pep (0-900) pg/ml Total Protein (6.4-8.2) gm/dl Albumin (3.4-5.0) gm/dl Globulin (2.5-4.0) gm/dl Albumin/Globulin Ratio (0.9-2) Beta-Hydroxybutyric Acd 1.64 (0.2-2.81) mg/dl Procalcitonin (0-0.5) ng/ml Specimen Hemolysis Urine Color Yellow Urine Appearance Clear (Clear) Urine pH 6.5 (4.5-7.5) Ur Specific [place] 1.020 (1.000-1.030) Urine Protein Negative (Negative) Urine Glucose (UA) 3+ H (Negative) Urine Ketones Negative (Negative) Urine Blood Negative (Negative) Urine Nitrite Negative (Negative) Urine Bilirubin Negative (Negative) Urine Urobilinogen Negative (Negative) Ur Leukocyte Esterase Negative (Negative) 07/01/20 07/01/20 07/01/20 Range/Units 15:42 15:42 15:42 WBC (4.8-10.8) K/uL RBC (4.7-6.1) M/uL Hgb (14.0-18.0) g/dL Hct (42-52) % MCV (80-100) fL MCH (25-34) pg MCHC (32-36) g/dL RDW Std Deviation (36.4-46.3) fL RDW Coeff of [place] (11.5-14.5) % Plt Count (130-400) K/uL MPV (7.4-10.4) fL Immature Gran % (Auto) % Neut % (Auto) % Lymph % (Auto) % [place] % (Auto) % Eos % (Auto) % Baso % (Auto) % Neut # (Auto) (1.4-6.5) K/uL Lymph # (Auto) (1.2-3.4) K/uL [place] # (Auto) (0.11-0.59) K/uL Eos # (Auto) (0-0.5) K/uL Baso # (Auto) (0-0.2) K/uL Immature Gran # (Auto) (0.00-0.02) K/uL PT (9.0-12.0) Seconds INR (0.9-1.1) APTT (21.0-31.0) Seconds PTT Ratio D-Dimer 390 (0-500) ug/L FEU VBG pH (7.36-7.41) VBG pCO2 (38-50) mmHg VBG pO2 mmHg VBG HCO3 mmol/L VBG O2 Saturation % VBG Base Excess mEq/L Barometric Pressure mm/Hg Sodium (136-145) mmol/L Potassium (3.5-5.1) mmol/L Chloride (98-107) mmol/L Carbon Dioxide (21-32) mmol/L Anion Gap (3-11) BUN (7-18) mg/dl Creatinine (0.6-1.4) mg/dl Est Cr Clr Drug Dosing Est GFR ( Amer) Est GFR (Non-Af Amer) BUN/Creatinine Ratio (10-20) Glucose (70-99) mg/dl POC Glucose (70-99) mg/dl Estimat Average Glucose 269 mg/dl Hemoglobin A1c 11.0 H (4.5-5.6) % Lactate Calcium (8.5-10.1) mg/dl Magnesium (1.8-2.4) mg/dl Total Bilirubin (0.2-1) mg/dl AST (15-37) U/L ALT (12-78) U/L Alkaline Phosphatase (45-117) U/L Troponin I (0-0.045) ng/ml NT-Pro-B Natriuret Pep (0-900) pg/ml Total Protein (6.4-8.2) gm/dl Albumin (3.4-5.0) gm/dl Globulin (2.5-4.0) gm/dl Albumin/Globulin Ratio (0.9-2) Beta-Hydroxybutyric Acd (0.2-2.81) mg/dl Procalcitonin 0.06 (0-0.5) ng/ml Specimen Hemolysis Urine Color Urine Appearance (Clear) Urine pH (4.5-7.5) Ur Specific [place] (1.000-1.030) Urine Protein (Negative) Urine Glucose (UA) (Negative) Urine Ketones (Negative) Urine Blood (Negative) Urine Nitrite (Negative) Urine Bilirubin (Negative) Urine Urobilinogen (Negative) Ur Leukocyte Esterase (Negative) 07/01/20 07/01/20 07/01/20 Range/Units 15:42 15:42 15:42 WBC (4.8-10.8) K/uL RBC (4.7-6.1) M/uL Hgb (14.0-18.0) g/dL Hct (42-52) % MCV (80-100) fL MCH (25-34) pg MCHC (32-36) g/dL RDW Std Deviation (36.4-46.3) fL RDW Coeff of [place] (11.5-14.5) % Plt Count (130-400) K/uL MPV (7.4-10.4) fL Immature Gran % (Auto) % Neut % (Auto) % Lymph % (Auto) % [place] % (Auto) % Eos % (Auto) % Baso % (Auto) % Neut # (Auto) (1.4-6.5) K/uL Lymph # (Auto) (1.2-3.4) K/uL [place] # (Auto) (0.11-0.59) K/uL Eos # (Auto) (0-0.5) K/uL Baso # (Auto) (0-0.2) K/uL Immature Gran # (Auto) (0.00-0.02) K/uL PT 9.5 (9.0-12.0) Seconds INR 0.9 (0.9-1.1) APTT 26.0 (21.0-31.0) Seconds PTT Ratio 0.9 D-Dimer (0-500) ug/L FEU VBG pH 7.47 H (7.36-7.41) VBG pCO2 52 H (38-50) mmHg VBG pO2 48 mmHg VBG HCO3 37 mmol/L VBG O2 Saturation 82.1 % VBG Base Excess 11.1 mEq/L Barometric Pressure 729.6 mm/Hg Sodium 132 L (136-145) mmol/L Potassium 2.7 L (3.5-5.1) mmol/L Chloride 89 L (98-107) mmol/L Carbon Dioxide 34 H (21-32) mmol/L Anion Gap 9.0 (3-11) BUN 22 H (7-18) mg/dl Creatinine 1.23 (0.6-1.4) mg/dl Est Cr Clr Drug Dosing Not Reportable Est GFR ( Amer) 77.7 Est GFR (Non-Af Amer) 67.1 BUN/Creatinine Ratio 17.9 (10-20) Glucose 341 H* (70-99) mg/dl POC Glucose (70-99) mg/dl Estimat Average Glucose mg/dl Hemoglobin A1c (4.5-5.6) % Lactate Calcium 8.0 L (8.5-10.1) mg/dl Magnesium 2.0 (1.8-2.4) mg/dl Total Bilirubin 0.5 (0.2-1) mg/dl AST 20 (15-37) U/L ALT 30 (12-78) U/L Alkaline Phosphatase 161 H (45-117) U/L Troponin I < 0.015 (0-0.045) ng/ml NT-Pro-B Natriuret Pep 81 (0-900) pg/ml Total Protein 7.1 (6.4-8.2) gm/dl Albumin 2.8 L (3.4-5.0) gm/dl Globulin 4.3 H (2.5-4.0) gm/dl Albumin/Globulin Ratio 0.7 L (0.9-2) Beta-Hydroxybutyric Acd (0.2-2.81) mg/dl Procalcitonin (0-0.5) ng/ml Specimen Hemolysis Urine Color Urine Appearance (Clear) Urine pH (4.5-7.5) Ur Specific [place] (1.000-1.030) Urine Protein (Negative) Urine Glucose (UA) (Negative) Urine Ketones (Negative) Urine Blood (Negative) Urine Nitrite (Negative) Urine Bilirubin (Negative) Urine Urobilinogen (Negative) Ur Leukocyte Esterase (Negative) 07/01/20 Range/Units 15:42 WBC 8.53 (4.8-10.8) K/uL RBC 4.19 L (4.7-6.1) M/uL Hgb 12.9 L (14.0-18.0) g/dL Hct 37.9 L (42-52) % MCV 90.5 (80-100) fL MCH 30.8 (25-34) pg MCHC 34.0 (32-36) g/dL RDW Std Deviation 50.2 H (36.4-46.3) fL RDW Coeff of [place] 15.3 H (11.5-14.5) % Plt Count 228 (130-400) K/uL MPV 10.7 H (7.4-10.4) fL Immature Gran % (Auto) 0.4 % Neut % (Auto) 75.0 % Lymph % (Auto) 17.2 % [place] % (Auto) 4.9 % Eos % (Auto) 2.1 % Baso % (Auto) 0.4 % Neut # (Auto) 6.40 (1.4-6.5) K/uL Lymph # (Auto) 1.47 (1.2-3.4) K/uL [place] # (Auto) 0.42 (0.11-0.59) K/uL Eos # (Auto) 0.18 (0-0.5) K/uL Baso # (Auto) 0.03 (0-0.2) K/uL Immature Gran # (Auto) 0.03 H (0.00-0.02) K/uL PT (9.0-12.0) Seconds INR (0.9-1.1) APTT (21.0-31.0) Seconds PTT Ratio D-Dimer (0-500) ug/L FEU VBG pH (7.36-7.41) VBG pCO2 (38-50) mmHg VBG pO2 mmHg VBG HCO3 mmol/L VBG O2 Saturation % VBG Base Excess mEq/L Barometric Pressure mm/Hg Sodium (136-145) mmol/L Potassium (3.5-5.1) mmol/L Chloride (98-107) mmol/L Carbon Dioxide (21-32) mmol/L Anion Gap (3-11) BUN (7-18) mg/dl Creatinine (0.6-1.4) mg/dl Est Cr Clr Drug Dosing Est GFR ( Amer) Est GFR (Non-Af Amer) BUN/Creatinine Ratio (10-20) Glucose (70-99) mg/dl POC Glucose (70-99) mg/dl Estimat Average Glucose mg/dl Hemoglobin A1c (4.5-5.6) % Lactate Calcium (8.5-10.1) mg/dl Magnesium (1.8-2.4) mg/dl Total Bilirubin (0.2-1) mg/dl AST (15-37) U/L ALT (12-78) U/L Alkaline Phosphatase (45-117) U/L Troponin I (0-0.045) ng/ml NT-Pro-B Natriuret Pep (0-900) pg/ml Total Protein (6.4-8.2) gm/dl Albumin (3.4-5.0) gm/dl Globulin (2.5-4.0) gm/dl Albumin/Globulin Ratio (0.9-2) Beta-Hydroxybutyric Acd (0.2-2.81) mg/dl Procalcitonin (0-0.5) ng/ml Specimen Hemolysis Urine Color Urine Appearance (Clear) Urine pH (4.5-7.5) Ur Specific [place] (1.000-1.030) Urine Protein (Negative) Urine Glucose (UA) (Negative) Urine Ketones (Negative) Urine Blood (Negative) Urine Nitrite (Negative) Urine Bilirubin (Negative) Urine Urobilinogen (Negative) Ur Leukocyte Esterase (Negative) Diagnostic Findings Telemetry reviewed: NSR at 70s, during presumed sleep, HR decreased to mid 40's overnight. Chest xray reviewed: NO acute findings. No pleural effusions noted. Venous duplex report reviewed: Limited study due to body habitus. No evidence of DVT in visualized vessels Foot xray: no acute fracture EKG on admission: Normal sinus rhythm Right bundle branch block Minimal voltage criteria for LVH, may be normal variant Flattening of waves in anterior/septal leads Prolonged QT Repeat EKG this morning: NSR, RBBB, T wave abnormality resolved in anterior leads. Prolonged QT Echo report reviewed dated April 22, 2020 at [facility]: Limited echo due to body habitus Preserved LV systolic function with LVEF 60-65% Moderate LVH grade I diastolic dysfunction no aortic stenosis. RV not assessed Medications Administered Current Inpatient Medications Acetaminophen (Tylenol) 650 mg PO Q4H PRN PRN Reason: Pain or Fever Stop: 07/31/20 18:01 Al Hydrox/Mg Hydrox/Simethicone (Maalox) 15 ml PO Q4H PRN PRN Reason: Dyspepsia Stop: 07/31/20 18:01 Aspirin (Ecotrin Ectab) 81 mg PO DAILY RADHA Stop: 08/01/20 08:59 Dextrose (Dextrose 50%) 25 - 50 ml IV UD PRN; Protocol PRN Reason: Hypoglycemia Protocol Stop: 07/31/20 20:26 Fluticasone Propionate (Flonase) 2 sprays G[place]O DAILY PRN PRN Reason: Nasal Congestion Stop: 07/31/20 20:26 Glucagon (Glucagen) 1 mg SQ UD PRN; Protocol PRN Reason: Hypoglycemia Protocol Stop: 07/31/20 20:26 Glucose (Dex4 Glucose) 4 - 8 tabs PO UD PRN; Protocol PRN Reason: Hypoglycemia Protocol Stop: 07/31/20 20:26 Glucose (Glucose 40%) 15 - 30 gm PO UD PRN; Protocol PRN Reason: Hypoglycemia Protocol Stop: 07/31/20 20:26 Furosemide 40 mg/ Syringe 4 mls @ 4 mls/min IV BID [facility] Stop: 08/01/20 08:59 Ceftriaxone Sodium 2,000 mg/ (Dextrose) 70 mls @ 100 mls/hr IV Q24H [facility]; Protocol Stop: 07/08/20 21:59 Last Infusion: 07/01/20 23:11 Dose: Infused Documented by: Heparin Sodium (Porcine) 7,500 (units/ Syringe) 0.75 mls @ 10 mls/min SQ Q8 [facility] Stop: 07/31/20 22:14 Last Admin: 07/02/20 06:06 Dose: 10 mls/min Documented by: Insulin Aspart (Insulin Aspart 100 Units/Ml 3 Ml Pen) 0 units SC ACHS [facility]; Protocol Stop: 07/31/20 20:59 Last Admin: 07/01/20 22:36 Dose: 31 units Documented by: Insulin Glargine (Insulin Glargine Solostar 100 Units/Ml 3 Ml Pen) 40 units SQ BID [facility]; Protocol Stop: 08/01/20 08:59 Lactobacillus Acidophilus (Floranex) 4 tab PO TID [facility] Stop: 08/01/20 08:59 Magnesium Hydroxide (Milk Of Magnesia) 30 ml PO Q12H PRN PRN Reason: Constipation Stop: 07/31/20 18:01 Metolazone (Zaroxolyn) 2.5 mg PO TuThSa@0900 [facility] Stop: 08/02/20 08:59 Miscellaneous (Carbohydrates For Hypoglycemia) 15 - 30 gm PO UD PRN PRN Reason: Hypoglycemia Protocol Stop: 07/31/20 20:26 Miscellaneous Information (Consult Glycemic Management Pharmacy) 1 ea N/A UD PRN PRN Reason: Consult Stop: 07/31/20 21:25 Oxycodone/Acetaminophen (Percocet 5mg/325mg) 1 tab PO Q8 PRN PRN Reason: Pain Stop: 07/15/20 20:26 Pantoprazole Sodium (Protonix) 40 mg PO QAM [facility] Stop: 08/01/20 08:59 Polyethylene Glycol (Miralax Powder Packet) 17 gm PO DAILY PRN PRN Reason: Constipation Stop: 07/31/20 18:01 Potassium Chloride (Klor-Con M20) 40 meq PO DAILY [facility] Stop: 08/01/20 08:59 Sennosides (Senokot) 17.2 mg PO DAILY PRN PRN Reason: Constipation Stop: 07/31/20 20:26 Sertraline HCl (Zoloft) 50 mg PO DAILY [facility] Stop: 08/01/20 08:59 Spironolactone (Aldactone) 50 mg PO BID [facility] Stop: 07/31/20 20:59 Last Admin: 07/01/20 22:40 Dose: 50 mg Documented by: Torsemide (Demadex) 80 mg PO BID [facility] Stop: 08/01/20 08:59 Umeclidinium [place] (Incruse Ellipta) 1 puffs INH DAILY [facility] Stop: 08/01/20 08:59 Vitamin D (Vitamin D3) 2,000 units PO DAILY [facility] Stop: 08/01/20 08:59
[2020-07-02] MEDS: LACTOBACILLUS ACIDOPHILUS (FLORANEX) TAB PO SCH ×3 (08:23→20:22)
[2020-07-02] MEDS: ASPIRIN 81 MG ECTAB PO SCH (08:23)
[2020-07-02] MEDS: POTASSIUM CHLORIDE 20 MEQ TABCR PO SCH (08:23)
[2020-07-02] MEDS: CHOLECALCIFEROL 1,000 UNITS 25 MCG TAB PO SCH (08:23)
[2020-07-02] MEDS: PANTOprazole 40 MG TAB PO SCH (08:24)
[2020-07-02] MEDS: SPIRONOLACTONE 25 MG TAB PO SCH ×2 (08:24→20:21)
[2020-07-02] MEDS: INSULIN ASPART 100 UNITS/ML 3 ML PEN SC SCH ×5 (08:29→20:25)
[2020-07-02] MEDS ORDERED: INSULIN GLARGINE SOLOSTAR 100 UNITS/ML 3 ML PEN SQ ONE (08:30)
[2020-07-02] MEDS: UMECLIDINIUM BROMIDE 62.5MCG/BLISTER 7 PUFFS/INHALER INH SCH (08:42)
--- NOTE | 2020-07-02 08:46 | Pharmacy Report ---
Glycemic Control Consultation - Date of Service July 02, 2020 - Scope Scope: Glycemic Pharmacist consulted for glycemic control and to write orders per [facility] inpatient glycemic control protocol. - Objective Weight: 213.4 kg Accuchecks BSG (last 24hrs): 07/01/20 07/01/20 07/01/20 15:42 20:43 20:45 Glucose 341 H* 300 H POC Glucose 323 H* 07/01/20 07/02/20 07/02/20 20:47 00:24 07:18 Glucose 320 H* 306 H* POC Glucose 357 H* 07/02/20 07/02/20 07:51 07:52 Glucose POC Glucose 310 H* 330 H* Laboratory Data (last 24hrs): 07/01/20 07/01/20 07/01/20 15:42 17:14 20:43 Potassium 2.7 L 2.6 L Carbon Dioxide 34 H 34 H Anion Gap 9.0 6.0 Creatinine 1.23 1.00 Est Cr Clr Drug Dosing Not Reportable Not Reportable Beta-Hydroxybutyric Acd 1.64 07/02/20 07/02/20 00:24 07:18 Potassium 2.7 L Carbon Dioxide 32 36 H Anion Gap 10.0 6.0 Creatinine 1.07 0.99 Est Cr Clr Drug Dosing 151.3 162.9 Beta-Hydroxybutyric Acd 1.11 HbA1c: Hemoglobin A1c 11.0 % (4.5-5.6) H 07/01/20 15:42 - Recent Pertinent Medications Outpatient Anti-diabetic Regimen: * trulicity, novolog 10 units AC, Lantus 40 HS, metformin 2 gm daily * A1c = 11.0 % 07/01/20 Risk Factors for Insulin Resistance: * Infection: rocephin * Diet: yes - Assessment & Plan Assessment & Plan: ASSESSMENT: * 54 year old with diastolic CHF, bilateral lymphedema, foot pain, hyponatremia and hypokalemia. Type 2 diabetic with hyperglycemia on admission. * Pharmacy consulted for glycemic management. Known to glycemic service from other admissions, most recently 04/23/20 admission * Appears on last admission he was discharged on Lantus 40 units BID, however medication list on admission indicating only once daily. Will need to confirm home dosing. * BSG this AM elevated at 306 mg/dL - received 40 of basal last evening and 31 units of correctional insulin * Will plan to utilize similar parameters for insulin from last admission PLAN FOR INPATIENT GLYCEMIC CONTROL: * Basal insulin * Lantus 40 units x 1 this AM * Lantus 40-50 units at HS * Bolus insulin * NovoLog per scale ACHS or Q6hrs while NPO * Goal Range: Low 110 mg/dL - High 140 mg/dL * Correction Factor: 10 mg/dL/unit * Nutritional / Prandial insulin per carb ratio of 1 unit per 3 grams CHO consumed * Please note that the plan above was derived based on current level of insulin resistance and hospital stress. These recommendations are appropriate for inpatient admission only. Plan of care upon discharge will need to be reassessed to avoid potential outpatient hypo/hyperglycemia. Thank you.
[2020-07-02 08:49] LABS: Potassium 2.9 mmol/L (3.5-5.1)
[2020-07-02 08:56] LABS: Magnesium 2.1 mg/dl (1.8-2.4)
[2020-07-02 08:57] LABS: Beta-Hydroxybutyrate 2.66 mg/dl (0.2-2.81)
[2020-07-02] MEDS ORDERED: POTASSIUM CHLORIDE 20 MEQ TABCR PO STA ×2 (08:58→18:38)
[2020-07-02] MEDS ORDERED: FUROSEMIDE 40 MG in SYRINGE 0 ML IV SCH (09:00)
[2020-07-02] MEDS ORDERED: SERTRALINE HCL 50 MG TABLET PO SCH (09:00)
[2020-07-02] MEDS ORDERED: ASPIRIN 81 MG ECTAB PO SCH (09:00)
[2020-07-02] MEDS ORDERED: INSULIN GLARGINE SOLOSTAR 100 UNITS/ML 3 ML PEN SQ SCH ×2 (09:00→21:00)
[2020-07-02] MEDS ORDERED: TORSEMIDE 20 MG TAB PO SCH (09:00)
--- NOTE | 2020-07-02 13:21 | Psychiatric Consultation ---
Date of Consultation July 02, 2020 Impression / Recommendations Impression Dr. Tuyet Alexis was directly involved in review and discussion of the patient's case and participated in medical decision making regarding treatment recommendations. RECOMMENDATIONS: 07/02 - Psychiatric consultation requested by cardiology service for evaluation of depression, after patient had made statements that he "wants to go home and ." Pt last seen on our consult service in 04/2020 for similar presentation, but declined our involvement and could be safety planned home. - Pt is agreeable with titration of sertraline to 100mg daily after review of risks, benefits, and potential side effects. Suggest consideration of further titration over time to target depression and negative thinking. Pt states he meets with a counselor every other week and denies need for further outpatient psychiatric support. He is declining to sign ROIs for his or his therapist at this time. - In regard to provocative, suicidal-themed statements: patient admits to hopelessness and frustration related to his numerous medical conditions. He endorses symptoms of depression but minimizes the impact they are having on his physical and mental health. In addition, there is evidence of characteristics of personality disorder traits specifically borderline personality disorder. Due to these things, it is likely that patient is at a chronically elevated risk of self-harm when compared to the general population. He is, however, denying active SI, plan, intent, or act of furtherance and acute risk of self-harm is considered low at present. Recommend continuing to assess for possible changes with regard to passive SI/hopelessness. - No present criteria to suggest inpatient psychiatric hospitalization is indicated, as risk factors are longstanding and not clearly amenable to this level of treatment. Ideally, patient will sign ROIs for at least one outpatient support who can provide collateral information. Pt is requesting a shower, as he feels this will be calming and assist with improving mood and anxiety. - Please reach out to our service with any additional questions or updates. Psych History Identifying Data 54-year-old male admitted medically on 07/01/2020 after presenting to the ED with complaints of leg swelling and shortness of breath. Pt has chronic diastolic heart failure among numerous other medical conditions. He was admitted for treatment of acute heart failure. Psychiatric consultation ordered by cardiology service after patient had verbalized he "wants to go home and ." Chief Complaint "I'm just tired. Tired of fighting this thing all the time." History of Present Illness Jorge Alberto Sanchez is a 54-year-old male admitted medically on 07/01/2020 after presenting to the ED with complaints of leg swelling and shortness of breath. Pt is being treated for acute diastolic heart failure, with monitoring of numerous other medical conditions. Pt was evaluated by cardiology, and it is reported he had verbalized he "wants to go home and ." Psychiatric consultation was requested by cardiology service for concern for depression. Pt was last seen on our service in 04/2020, as he had also made a provocative suicidal-themed statement at that time. He has been resistant to our assistance at that time and declined referrals for outpatient psychiatric services. Case was reviewed with psychiatric nurse liaison, who met with patient initially and completed a suicide risk assessment. Pt reportedly deflected from answering most questions or continued to make provocative statements. He did score a 6 (low suicide risk), as he denied active SI, plan, or intent. Pt was reportedly dismissive of questions during assessment, and even mocking at times. This provider did follow-up with the patient to further evaluate for depression and assess for acute risk of self-harm. Pt stated "I'm just tired. Tired for fighting this thing all the time." Pt also indicates that the hospital setting itself can be very stressful for him and "makes me mean, more mean than I usually am. I'm a whole other person at home." Pt frequently states during our conversation "I'm not yelling at you, see, I wouldn't be this way if I weren't in the hospital." Pt does indicate that he is hopeless and frustrated about his various medical conditions. He report that he is tired, but states "I'm hoping nature just takes its course, I'm not going to hurt myself." This provider explained that when statements are made suggesting self harm, that our service is generally requested to assess necessary actions to reduce risk. Pt states multiple times during our encounter that he is not at risk of harming himself, both in and out of the hospital setting. Pt denies plan or intent to take steps to end his life. Pt does admit to depressive symptoms, but initially does not engage in conversation about treatment options - instead he minimizes these concerns. Pt admits he meets with a therapist every other week and has a manager case assigned through his insurance. Pt does not feel he would benefit from any additional psychiatric services. Inpatient psychiatric hospitalization was offered and patient reasonably states "my medical issues aren't something you're going to fix in 72-hours." Pt does feel that his mindset will be improved when he is able to shower, and even more-so when he is allowed to be discharged home. Pt did agree to allow this provider to titrate his dose of sertraline to 100mg daily. He denied other needs from our service at this time aside from "keeping up your end and asking about that shower." Past Psychiatric History Current Psychiatric Diagnosis: Depression; though patient denies symptoms Outpatient Services: Sertraline has been prescribed by patient's PCP Previous Psych Admissions: States he has been hospitalized in [facility] for psychiatric treatment (most recently in 2014 per his reports) History of Previous Suicide Attempt: Yes (per 04/2020 consult - hx of OD anc cutting wrist) Past Medication Trials: Pt has been prescribed sertraline 50mg since 01/2020 - though unclear if he has been consistent with the medication 04/2020 consultation suggests patient has been prescribed antidepressant medications after numerous hospitalizations but does not take them when he is discharged. Allergies Allergy/AdvReac Type Severity Reaction Status Date / Time vancomycin Allergy Intermediate Hives Verified 07/01/20 17:54 hydrocodone [From Vicodin] Allergy Mild Rash Verified 07/01/20 17:54 Home Medications Home Medications Medication Instructions Recorded Confirmed Type acetaminophen 500 mg PO Q6H PRN 04/03/19 07/01/20 History albuterol sulfate [Ventolin HFA] 2 puff INHALATION Q4H PRN 04/03/19 07/01/20 History aspirin 81 mg PO DAILY 04/03/19 07/01/20 History pantoprazole 40 mg PO QAM 04/03/19 07/01/20 History sennosides [senna] 17.2 mg PO DAILY PRN 04/03/19 07/01/20 History cholecalciferol (vitamin D3) 2,000 unit PO DAILY 08/16/19 07/01/20 History Chantix 1 mg PO BID 04/02/20 07/01/20 History spironolactone 50 mg PO BID 04/08/20 07/01/20 History torsemide 80 mg PO BID 04/08/20 07/01/20 History Androderm 4 mg TRANSDERMAL DAILY 04/22/20 07/01/20 History Trulicity 1.5 mg SUBCUT WK 04/22/20 07/01/20 History sertraline 50 mg PO DAILY 04/22/20 07/01/20 History Lantus Solostar U-100 Insulin 40 units SQ HS 07/01/20 07/01/20 History ammonium lactate 1 applic TOPICAL BID PRN 07/01/20 07/01/20 History cephalexin 500 mg PO BID 07/01/20 07/01/20 History clotrimazole 10 mg MUCOUS MEMBRANE 5XD 07/01/20 07/01/20 History insulin aspart U-100 [Novolog 10 unit SUBCUT AC 07/01/20 07/01/20 History Flexpen U-100 Insulin] metformin 2,000 mg PO DAILY 07/01/20 07/01/20 History metolazone 2.5 mg PO 3XWK 07/01/20 07/01/20 History nystatin [Nystop] 1 applic TOPICAL TID 07/01/20 07/01/20 History potassium chloride 40 meq PO DAILY 07/01/20 07/01/20 History Family History Per 04/2020 consultation - patient admitted brother has D&A issues, and sister completed suicide Substance Abuse History Denies significant alcohol or tobacco use. Denies use of illicit substances. Personal History Living Arrangements: Home (with and 's 2 sons) Born In: [place], [place] Highest Grade Completed: Vocational Training Employment Status: Disabled (due to seizure history ) Marital Status: Number Of Children: reportedly has 2 biological sons, and 2 non-biological sons Beliefs That Will Affect Care: None History of Legal Problems: None Psychological Trauma History Comment: None Patient History Medical History Asthma Bulging lumbar disc Bulging of cervical intervertebral disc Chronic back pain Chronic right-sided CHF (congestive heart failure) COPD (chronic obstructive pulmonary disease) Diabetes GERD with apnea Gout Hyperlipidemia Hypertension Morbid obesity with BMI of 50.0-59.9, adult Myocardial Infarction ? 10 yrs ago Osteoarthritis RBBB Recurrent cellulitis Seizure Possible seizure in 2016 evaluation normal per patient , no problems since Sleep apnea bipap with 2L oxygen Thyroid nodule just monitoring Tobacco abuse Surgical History History of cardiac cath ? 10yrs ago--no stents History of cholecystectomy History of phacoemulsification of cataract of left eye with intraocular lens implantation History of repair of anterior cruciate ligament of right knee History of toe surgery right big toe History of tooth extraction Family History Aunt Family history of diabetes mellitus Mother Diabetes Father Cancer of kidney Heart disease Other No family history of adverse response to anesthesia Social History Smoking Status: Current every day smoker Tobacco Type: Cigarettes Cigarettes Per Day: 10-20/day; Second Hand Exposure: Yes; Do You Dip or Chew Tobacco: No; Tobacco Cessation Education Requested by Patient: No Hx Alcohol Use: Yes Alcohol type: other Hx Substance Use: No Preferred Language: Thai Communication Ability: Effective Assistant Site Manager Required: No Beliefs That Will Affect Care: None marital status: Current Living Situation: Spouse Current Living Situation Comment: Lives with and 2 kids Other Information That Helps Us Care for You: No Feels Safe at Home: Yes Safety Concerns: Feels Safe At This Time Physical Exam Psychiatric: Orientation: alert, oriented x 3 and + guarded (uncooperative, provacative, and argumentative at times) Apperance: appropriately dressed and + disheveled; + inappropriately groomed Morbidly obese male, seated in bedside chair - appearing uncomfortable but not in acute distress. Pt is casually dressed in a t-shirt and gym shorts. Level of hygiene and grooming is poor. Eye Contact: good eye contact Motor Behavior: no abnormal motor movements (observed while seated in bedside chair) Speech: normal rate/rhythm/volume of speech Affect: + depressed affect (but with inappropriate laughter at times, mocking ) Mood: + depressed mood and + anxious mood Thought Process: goal directed thought process and + concrete thought process Thought Content: + cognitive distortions (most likely consistent with underlying personality disorder pathology) and + hopelessness Suicidal Thoughts: denies suicidal plan and denies suicidal intent; + reports suicidal thoughts (admits he would like to be , but denies active thoughts to harm himself) Homicidal Thoughts: denies homicidal thoughts Hallucinations: no auditory hallucinations and no visual hallucinations Cognition: attention grossly intact and language grossly intact Estimated Intelligence: + below average estimated intelligence Insight: + limited insight Judgement: + limited judgement Vital Signs (Past 24 Hours): Last Vital Signs Temp 36.5 C 07/02/20 12:26 Pulse 71 07/02/20 12:26 Resp 20 07/02/20 12:26 BP 167/74 H 07/02/20 12:26 Pulse Ox 93 07/02/20 12:26 Review of Systems Constitutional: denied Cardiovascular: denied Respiratory: reports shortness of breath Gastrointestinal: denied Neurological: denied Musculoskeletal: reports knee/ankle pain, numbness in feet Psychiatric: denies symptoms other than stated above Total of at least 10 systems reviewed, pertinent positives as above and in HPI. Results & Data (PSY) Medications Administered Aspirin (Ecotrin Ectab) 81 mg PO DAILY [facility] Stop: 08/01/20 08:59 Last Admin: 07/02/20 08:23 Dose: 81 mg Documented by: [id number] Ceftriaxone Sodium 2,000 mg/ (Dextrose) 70 mls @ 100 mls/hr IV Q24H [facility]; Protocol Stop: 07/08/20 21:59 Last Infusion: 07/01/20 23:11 Dose: 0 mls/hr Documented by: [id number] Admin: 07/01/20 22:39 Dose: 100 mls/hr Documented by: [id number] Heparin Sodium (Porcine) 7,500 (units/ Syringe) 0.75 mls @ 10 mls/min SQ Q8 [facility] Stop: 07/31/20 22:14 Last Admin: 07/02/20 06:06 Dose: 10 mls/min Documented by: [id number] Cosigned by: [id number] Admin: 07/01/20 23:11 Dose: Not Given Documented by: [id number] Insulin Aspart (Insulin Aspart 100 Units/Ml 3 Ml Pen) 0 units SC ACHS [facility]; Protocol Stop: 07/31/20 20:59 Last Admin: 07/02/20 11:50 Dose: 39 units Documented by: [id number] Cosigned by: [id number] Admin: 07/02/20 08:40 Dose: 32 units Documented by: [id number] Cosigned by: [id number] Admin: 07/01/20 22:36 Dose: 31 units Documented by: [id number] Cosigned by: [id number] Insulin Glargine (Insulin Glargine Solostar 100 Units/Ml 3 Ml Pen) 40 units SQ BID [facility]; Protocol Stop: 08/01/20 08:59 Last Admin: 07/02/20 08:40 Dose: 40 units Documented by: [id number] Cosigned by: [id number] Lactobacillus Acidophilus (Floranex) 4 tab PO TID [facility] Stop: 08/01/20 08:59 Last Admin: 07/02/20 08:23 Dose: 4 tab Documented by: [id number] Pantoprazole Sodium (Protonix) 40 mg PO QAM [facility] Stop: 08/01/20 08:59 Last Admin: 07/02/20 08:24 Dose: 40 mg Documented by: [id number] Potassium Chloride (Klor-Con M20) 40 meq PO DAILY [facility] Stop: 08/01/20 08:59 Last Admin: 07/02/20 08:23 Dose: 40 meq Documented by: [id number] Sertraline HCl (Zoloft) 50 mg PO DAILY [facility] Stop: 08/01/20 08:59 Last Admin: 07/02/20 08:24 Dose: 50 mg Documented by: [id number] Spironolactone (Aldactone) 50 mg PO BID [facility] Stop: 07/31/20 20:59 Last Admin: 07/02/20 08:24 Dose: 50 mg Documented by: [id number] Admin: 07/01/20 22:40 Dose: 50 mg Documented by: [id number] Umeclidinium [place] (Incruse Ellipta) 1 puffs INH DAILY [facility] Stop: 08/01/20 08:59 Last Admin: 07/02/20 08:42 Dose: Not Given Documented by: [id number] Vitamin D (Vitamin D3) 2,000 units PO DAILY [facility] Stop: 08/01/20 08:59 Last Admin: 07/02/20 08:23 Dose: 2,000 units Documented by: [id number] Coding Level of Care Code 88737 U Intl Hosp Care Lvl 2
[2020-07-02] MEDS ORDERED: POTASSIUM CHLORIDE 20 MEQ TABCR PO ONE (14:00)
[2020-07-02] MEDS: FUROSEMIDE 40 MG in SYRINGE 0 ML IV SCH (16:34)
--- NOTE | 2020-07-02 18:07 | Nephrology Consultation ---
Date of Consultation July 02, 2020 Assessment & Plan (1) Hypokalemia: from diuresis. K was 2.7 this AM and 2.9 this evening at 1700. on 40 mEq po daily; has also had 40 mEq doses po today in addition. magnesium acceptable. serum sodium about 134-135 when corrected for hyperglycemia--do not consider sodium his primary electrolyte issue. other chemistries ok -recheck K at 2300 ordered >> recommend have car worker helper follow up adn replete po; Dr Martino aware Present on Admission?: Yes (2) Electrolyte and fluid disorder: hyponatremia resolves to near normal when corrected for glucose though it is low end of normal. remains markedly volume overloaded but diuresing well and would continue current diuretic dosing, fluid and sodium limits, daily STANDING weights Present on Admission?: Yes (3) Acute on chronic right-sided congestive heart failure: agree with diuretics per cardiology>>40 mg iv bid Present on Admission?: Yes History of Present Illness Reason for Consultation: hyponatremia Requesting Physician: Dr Kaminski Attending Physician: Claude Martino MD History of Present Illness 54 y/o M whom I'm asked to see for fluid and electrolyte disorder after he was admitted for management of volume overload with heart failure and lower extremity edema. PMH includes class 3 obesity (BMI 64), SIDRA on bipap, Pickwickian syndrome, DM, HTN, active tobacco abuse, major depression, recurrent BLE cellulitis. Baseline creatinine is 1.0. He was admitted here April 23-April 27 with acute on chronic HFpEF. His presenting Na yesterday was 132 with BG 341. This am sNa was 131 with BG again in low 300s. K has been very low > under 3 since admission consistently. He us on RA and endorses marked and recurrent LE edema. Allergies Allergy/AdvReac Type Severity Reaction Status Date / Time vancomycin Allergy Intermediate Hives Verified 07/01/20 17:54 hydrocodone [From Vicodin] Allergy Mild Rash Verified 07/01/20 17:54 Home Medications Home Medications Medication Instructions Recorded Confirmed Type acetaminophen 500 mg PO Q6H PRN 04/03/19 07/01/20 History albuterol sulfate [Ventolin HFA] 2 puff INHALATION Q4H PRN 04/03/19 07/01/20 History aspirin 81 mg PO DAILY 04/03/19 07/01/20 History pantoprazole 40 mg PO QAM 04/03/19 07/01/20 History sennosides [senna] 17.2 mg PO DAILY PRN 04/03/19 07/01/20 History cholecalciferol (vitamin D3) 2,000 unit PO DAILY 08/16/19 07/01/20 History Chantix 1 mg PO BID 04/02/20 07/01/20 History spironolactone 50 mg PO BID 04/08/20 07/01/20 History torsemide 80 mg PO BID 04/08/20 07/01/20 History Androderm 4 mg TRANSDERMAL DAILY 04/22/20 07/01/20 History Trulicity 1.5 mg SUBCUT WK 04/22/20 07/01/20 History sertraline 50 mg PO DAILY 04/22/20 07/01/20 History Lantus Solostar U-100 Insulin 40 units SQ HS 07/01/20 07/01/20 History ammonium lactate 1 applic TOPICAL BID PRN 07/01/20 07/01/20 History cephalexin 500 mg PO BID 07/01/20 07/01/20 History clotrimazole 10 mg MUCOUS MEMBRANE 5XD 07/01/20 07/01/20 History insulin aspart U-100 [Novolog 10 unit SUBCUT AC 07/01/20 07/01/20 History Flexpen U-100 Insulin] metformin 2,000 mg PO DAILY 07/01/20 07/01/20 History metolazone 2.5 mg PO 3XWK 07/01/20 07/01/20 History nystatin [Nystop] 1 applic TOPICAL TID 07/01/20 07/01/20 History potassium chloride 40 meq PO DAILY 07/01/20 07/01/20 History Patient History Medical History Asthma Bulging lumbar disc Bulging of cervical intervertebral disc Chronic back pain Chronic right-sided CHF (congestive heart failure) COPD (chronic obstructive pulmonary disease) Diabetes GERD with apnea Gout Hyperlipidemia Hypertension Morbid obesity with BMI of 50.0-59.9, adult Myocardial Infarction ? 10 yrs ago Osteoarthritis RBBB Recurrent cellulitis Seizure Possible seizure in 2016 evaluation normal per patient , no problems since Sleep apnea bipap with 2L oxygen Thyroid nodule just monitoring Tobacco abuse Surgical History History of cardiac cath ? 10yrs ago--no stents History of cholecystectomy History of phacoemulsification of cataract of left eye with intraocular lens implantation History of repair of anterior cruciate ligament of right knee History of toe surgery right big toe History of tooth extraction Family History Aunt Family history of diabetes mellitus Mother Diabetes Father Cancer of kidney Heart disease Other No family history of adverse response to anesthesia Social History Smoking Status: Current every day smoker Tobacco Type: Cigarettes Cigarettes Per Day: 10-20/day; Second Hand Exposure: Yes; Do You Dip or Chew Tobacco: No; Tobacco Cessation Education Requested by Patient: No Hx Alcohol Use: Yes Alcohol type: other Hx Substance Use: No Preferred Language: Bruneian Communication Ability: Effective Global Risk Management Director Required: No Beliefs That Will Affect Care: None marital status: Current Living Situation: Spouse Current Living Situation Comment: Lives with and 2 kids Other Information That Helps Us Care for You: No Feels Safe at Home: Yes Safety Concerns: Feels Safe At This Time Review of Systems Review of Systems: All systems reviewed & are unremarkable except as noted in HPI & below Constitutional: + fatigue and + weight gain Respiratory: + dyspnea on exertion Cardiovascular: + edema; no chest pain Gastrointestinal: no abdominal pain, no vomiting and no change in stools Genitourinary: + urinary frequency; no dysuria and no difficulty urinating Psychiatric: + depression and + hopelessness Physical Exam Constitutional: well developed, well nourished and + morbidly obese; no acute distress sitting up in chair on RA Eyes: EOM intact bilaterally ENMT: Ears: no external ear abnormality Nose: no external nose abnormality Mouth: + dry oral mucous membranes Neck: no nuchal rigidity Respiratory: normal respiratory effort Auscultation: + diminished lung sounds and + crackles (BL) Cardiovascular: Rate/Rhythm: regular rate (distant HS) and regular rhythm Extremities: + edema (2-3+ indurated) Gastrointestinal (Abdomen): Inspection/Auscultation: normal bowel sounds Percussion/Palpation: abdomen soft; abdomen nontender Musculoskeletal: Extremities: strength 5/5 throughout Skin: no rashes, warm and dry Neurologic: almeida, fluent speech, no tremor Psychiatric: Orientation: alert and oriented x 3 Mood: + depressed mood and + anxious mood Genitourinary: no worley Results & Data ([facility]) Vital Signs (Past 12 Hours) Vital Signs Temp Pulse Resp BP Pulse Ox 07/02/20 15:47 36.5 C 77 18 173/90 H 93 07/02/20 12:26 36.5 C 71 20 167/74 H 93 07/02/20 08:19 36.7 C 75 20 134/84 92 Laboratory Results 07/02/20 07:18 07/02/20 17:07 Diagnostic Findings cxr 1. No acute findings. 2. Stable cardiomegaly. 3. Linear left basilar opacity suggestive of atelectasis. BL venous dopplers > no DVT
--- NOTE | 2020-07-02 19:22 | Hospitalist Progress Note ---
Date of Service July 02, 2020 Assessment & Plan (1) Acute diastolic congestive heart failure: Volume overload/acute on chronic diastolic heart failure/ right-sided HF Presented with shortness of breath increased weight. worsening of bilateral lower extremity swelling History of diastolic dysfunction Echo on 04/22/2020: Moderate concentric left ventricular hypertrophy. Ejection fraction 60-65% Grade 1 diastolic dysfunction. Patient was given IV Lasix in the ER, will continue 40 mg IV twice daily Monitor in PCU/telemetry Cardiology eval requested, Low-salt diet, fluid restriction 1500 mL a day Chronic bilateral lower extremity swelling/lymphedema: Presents with worsening of swelling in last few days Continue IV Lasix as outlined above Lower extremity Dopplers ordered to rule out DVT- negative LEFT FOOT PAIN : secondary to cellulitis xray - negative for any fractures Venous Doppler - no DVT, Bakers cyst on the left was recently started with PO keflex ordered for IV rocephin HYPONATREMIA : hard to assess intravascular vol status -given morbid obesity , body habitus clinically appears to be markedly vol overloaded cont IV lasix ordered for fluid restriction nephrology consulted, appreciate their input Hypokalemia: Potassium 2.7, possible secondary to home diuretics dose Patient denies of any nausea vomiting or diarrhea P.o. and IV potassium replacement done in ER Will continue to closely monitor and replete as needed Mag level within normal limit Type 2 diabetes: Presented with hyperglycemia, Very poorly controlled, current hemoglobin A1c 11% Pharmacy consulted for glycemic management Continue basal Lantus, added insulin sliding scale Blood sugar 341 in ER, no evidence of DKA with normal bicarb, normal beta hydroxybutyrate given 10 U of iv insulin in ER History of obesity hypoventilation syndrome/obstructive sleep apnea Continue BiPAP at night at home noncompliant with BiPAP Depression/ Anxiety Had SI comments while speaking w/ cardiology Psych consulted, Zoloft increased to 100 mg daily DVT prophylaxis: Moderate to high risk, subcu heparin CODE STATUS: Full code Disposition: Expected to be discharged home when medically stable Family medicine follow-up with Dr. Roy at [facility]. Admission and Anticipated Discharge Date Admission Date: July 01, 2020 Subjective Pt is sitting up in chair in NAD. Complains of right foot pain and dyspnea. However he is speaking in full sentences w/o any issues. Denies any fever, chills, chest pain, abd. pain, n/v. Was seen by cardiology and psychiatry. Plan to increase lasix if K level acceptable. Zoloft increased to 100 mg daily. Discussed BiPAP use, pt now agreeable. Will order cough drops for dry mouth. Review of Systems Respiratory: + dyspnea, + dyspnea on exertion and + snoring orthpnea Cardiovascular: + dyspnea, + dyspnea at rest and + dyspnea on exertion Additional Comments: severe bilateral lower extremity swelling Integumentary: severe bilateral swelling , with pain and swelling on left dorsal foot Physical Exam Physical Exam: Constitutional: WD/WN, vitals as above + morbidly obese male sitting up in chair in NAD Head: appears normocephalic Eyes: + anicteric sclerae, EOMI Respiratory: no cough Auscultation: + diminished lung sounds, mild bibasilar crackles, no wheezing noted Cardiovascular: Rate/Rhythm: regular rate and regular rhythm Extremities: + pedal edema and + edema severe bilateral lower ext edema Gastrointestinal (Abdomen): Percussion/Palpation: abdomen soft, nontender, obese, + bowel sounds Musculoskeletal: severe lower extremity swelling , lymphadenopathy , with ch ronic venous stasis changes noted pain and swelling with increased warmth on left dorsal foot, no open wound noted Neuro/ Psych: alert and oriented x3, answers questions appropriately, PERRL, EOMI, no face palsy, no dysarthria, moves extremities spontaneously, mood somewhat anxious Results & Data Results & Data ([facility]) Vital Signs (Past 12 Hours) Vital Signs Temp Pulse Resp BP Pulse Ox 07/02/20 15:47 36.5 C 77 18 173/90 H 93 07/02/20 12:26 36.5 C 71 20 167/74 H 93 07/02/20 08:19 36.7 C 75 20 134/84 92 Laboratory Results 07/02/20 07/02/20 07/02/20 Range/Units 17:07 16:13 14:57 WBC (4.8-10.8) K/uL RBC (4.7-6.1) M/uL Hgb (14.0-18.0) g/dL Hct (42-52) % MCV (80-100) fL MCH (25-34) pg MCHC (32-36) g/dL RDW Std Deviation (36.4-46.3) fL RDW Coeff of [place] (11.5-14.5) % Plt Count (130-400) K/uL MPV (7.4-10.4) fL Sodium (136-145) mmol/L Potassium 2.9 L Cancelled (3.5-5.1) mmol/L Chloride (98-107) mmol/L Carbon Dioxide (21-32) mmol/L Anion Gap (3-11) BUN (7-18) mg/dl Creatinine (0.6-1.4) mg/dl Est Cr Clr Drug Dosing Est GFR ( Amer) Est GFR (Non-Af Amer) BUN/Creatinine Ratio (-20) Glucose (70-99) mg/dl POC Glucose 206 H (70-99) mg/dl Estimat Average Glucose mg/dl Hemoglobin A1c (4.5-5.6) % Lactate Calcium (8.5-10.1) mg/dl Magnesium (1.8-2.4) mg/dl Beta-Hydroxybutyric Acd (0.2-2.81) mg/dl Specimen Hemolysis 07/02/20 07/02/20 07/02/20 Range/Units 11:26 08:22 07:52 WBC (4.8-10.8) K/uL RBC (4.7-6.1) M/uL Hgb (14.0-18.0) g/dL Hct (42-52) % MCV (80-100) fL MCH (25-34) pg MCHC (32-36) g/dL RDW Std Deviation (36.4-46.3) fL RDW Coeff of [place] (11.5-14.5) % Plt Count (130-400) K/uL MPV (7.4-10.4) fL Sodium (136-145) mmol/L Potassium 2.9 L (3.5-5.1) mmol/L Chloride (98-107) mmol/L Carbon Dioxide (21-32) mmol/L Anion Gap (3-11) BUN (7-18) mg/dl Creatinine (0.6-1.4) mg/dl Est Cr Clr Drug Dosing Est GFR ( Amer) Est GFR (Non-Af Amer) BUN/Creatinine Ratio (10-20) Glucose (70-99) mg/dl POC Glucose 287 H 330 H* (70-99) mg/dl Estimat Average Glucose mg/dl Hemoglobin A1c (4.5-5.6) % Lactate Calcium (8.5-10.1) mg/dl Magnesium 2.1 (1.8-2.4) mg/dl Beta-Hydroxybutyric Acd 2.66 (0.2-2.81) mg/dl Specimen Hemolysis 07/02/20 07/02/20 07/02/20 Range/Units 07:51 07:18 07:18 WBC 8.15 (4.8-10.8) K/uL RBC 4.36 L (4.7-6.1) M/uL Hgb 13.4 L (14.0-18.0) g/dL Hct 39.5 L (42-52) % MCV 90.6 (80-100) fL MCH 30.7 (25-34) pg MCHC 33.9 (32-36) g/dL RDW Std Deviation 50.4 H (36.4-46.3) fL RDW Coeff of [place] 15.4 H (11.5-14.5) % Plt Count 231 (130-400) K/uL MPV 10.8 H (7.4-10.4) fL Sodium 131 L (136-145) mmol/L Potassium (3.5-5.1) mmol/L Chloride 89 L (98-107) mmol/L Carbon Dioxide 36 H (21-32) mmol/L Anion Gap 6.0 (3-11) BUN 20 H (7-18) mg/dl Creatinine 0.99 (0.6-1.4) mg/dl Est Cr Clr Drug Dosing 162.9 Est GFR ( Amer) 101.1 Est GFR (Non-Af Amer) 87.2 BUN/Creatinine Ratio 20.6 H (10-20) Glucose 306 H* (70-99) mg/dl POC Glucose 310 H* (70-99) mg/dl Estimat Average Glucose mg/dl Hemoglobin A1c (4.5-5.6) % Lactate Calcium 9.0 (8.5-10.1) mg/dl Magnesium (1.8-2.4) mg/dl Beta-Hydroxybutyric Acd (0.2-2.81) mg/dl Specimen Hemolysis 07/02/20 07/01/20 07/01/20 Range/Units 00:24 20:47 20:45 WBC (4.8-10.8) K/uL RBC (4.7-6.1) M/uL Hgb (14.0-18.0) g/dL Hct (42-52) % MCV (80-100) fL MCH (25-34) pg MCHC (32-36) g/dL RDW Std Deviation (36.4-46.3) fL RDW Coeff of [place] (11.5-14.5) % Plt Count (130-400) K/uL MPV (7.4-10.4) fL Sodium 133 L (136-145) mmol/L Potassium 2.7 L (3.5-5.1) mmol/L Chloride 91 L (98-107) mmol/L Carbon Dioxide 32 (21-32) mmol/L Anion Gap 10.0 (3-11) BUN 20 H (7-18) mg/dl Creatinine 1.07 (0.6-1.4) mg/dl Est Cr Clr Drug Dosing 151.3 Est GFR ( Amer) 92.0 Est GFR (Non-Af Amer) 79.4 BUN/Creatinine Ratio 18.7 (10-20) Glucose 320 H* (70-99) mg/dl POC Glucose 357 H* 323 H* (70-99) mg/dl Estimat Average Glucose mg/dl Hemoglobin A1c (4.5-5.6) % Lactate Calcium 8.2 L (8.5-10.1) mg/dl Magnesium (1.8-2.4) mg/dl Beta-Hydroxybutyric Acd 1.11 (0.2-2.81) mg/dl Specimen Hemolysis 07/01/20 07/01/20 07/01/20 Range/Units 20:43 20:43 18:39 WBC (4.8-10.8) K/uL RBC (4.7-6.1) M/uL Hgb (14.0-18.0) g/dL Hct (42-52) % MCV (80-100) fL MCH (25-34) pg MCHC (32-36) g/dL RDW Std Deviation (36.4-46.3) fL RDW Coeff of [place] (11.5-14.5) % Plt Count (130-400) K/uL MPV (7.4-10.4) fL Sodium 129 L (136-145) mmol/L Potassium 2.6 L (3.5-5.1) mmol/L Chloride 89 L (98-107) mmol/L Carbon Dioxide 34 H (21-32) mmol/L Anion Gap 6.0 (3-11) BUN 21 H (7-18) mg/dl Creatinine 1.00 (0.6-1.4) mg/dl Est Cr Clr Drug Dosing Not Reportable Est GFR ( Amer) 99.8 Est GFR (Non-Af Amer) 86.2 BUN/Creatinine Ratio 21.0 H (10-20) Glucose 300 H (70-99) mg/dl POC Glucose (70-99) mg/dl Estimat Average Glucose mg/dl Hemoglobin A1c (4.5-5.6) % Lactate 0.6 Cancelled Calcium 8.5 (8.5-10.1) mg/dl Magnesium (1.8-2.4) mg/dl Beta-Hydroxybutyric Acd (0.2-2.81) mg/dl Specimen Hemolysis 07/01/20 Range/Units 15:42 WBC (4.8-10.8) K/uL RBC (4.7-6.1) M/uL Hgb (14.0-18.0) g/dL Hct (42-52) % MCV (80-100) fL MCH (25-34) pg MCHC (32-36) g/dL RDW Std Deviation (36.4-46.3) fL RDW Coeff of [place] (11.5-14.5) % Plt Count (130-400) K/uL MPV (7.4-10.4) fL Sodium (136-145) mmol/L Potassium (3.5-5.1) mmol/L Chloride (98-107) mmol/L Carbon Dioxide (21-32) mmol/L Anion Gap (3-11) BUN (7-18) mg/dl Creatinine (0.6-1.4) mg/dl Est Cr Clr Drug Dosing Est GFR ( Amer) Est GFR (Non-Af Amer) BUN/Creatinine Ratio (10-20) Glucose (70-99) mg/dl POC Glucose (70-99) mg/dl Estimat Average Glucose 269 mg/dl Hemoglobin A1c 11.0 H (4.5-5.6) % Lactate Calcium (8.5-10.1) mg/dl Magnesium (1.8-2.4) mg/dl Beta-Hydroxybutyric Acd (0.2-2.81) mg/dl Specimen Hemolysis Medications Administered Current Inpatient Medications Acetaminophen (Tylenol) 650 mg PO Q4H PRN PRN Reason: Pain or Fever Stop: 07/31/20 18:01 Al Hydrox/Mg Hydrox/Simethicone (Maalox) 15 ml PO Q4H PRN PRN Reason: Dyspepsia Stop: 07/31/20 18:01 Aspirin (Ecotrin Ectab) 81 mg PO DAILY RADHA Stop: 08/01/20 08:59 Last Admin: 07/02/20 08:23 Dose: 81 mg Documented by: Dextrose (Dextrose 50%) 25 - 50 ml IV UD PRN; Protocol PRN Reason: Hypoglycemia Protocol Stop: 07/31/20 20:26 Fluticasone Propionate (Flonase) 2 sprays GUSTABO DAILY PRN PRN Reason: Nasal Congestion Stop: 07/31/20 20:26 Glucagon (Glucagen) 1 mg SQ UD PRN; Protocol PRN Reason: Hypoglycemia Protocol Stop: 07/31/20 20:26 Glucose (Dex4 Glucose) 4 - 8 tabs PO UD PRN; Protocol PRN Reason: Hypoglycemia Protocol Stop: 07/31/20 20:26 Glucose (Glucose 40%) 15 - 30 gm PO UD PRN; Protocol PRN Reason: Hypoglycemia Protocol Stop: 07/31/20 20:26 Ceftriaxone Sodium 2,000 mg/ (Dextrose) 70 mls @ 100 mls/hr IV Q24H RADHA; Protocol Stop: 07/08/20 21:59 Last Infusion: 07/01/20 23:11 Dose: Infused Documented by: Heparin Sodium (Porcine) 7,500 (units/ Syringe) 0.75 mls @ 10 mls/min SQ Q8 RADHA Stop: 07/31/20 22:14 Last Admin: 07/02/20 13:27 Dose: 10 mls/min Documented by: Furosemide 40 mg/ Syringe 4 mls @ 4 mls/min IV BID17 RADHA Stop: 08/01/20 16:59 Last Admin: 07/02/20 16:34 Dose: 4 mls/min Documented by: Insulin Aspart (Insulin Aspart 100 Units/Ml 3 Ml Pen) 0 units SC ACHS [facility]; Protocol Stop: 07/31/20 20:59 Last Admin: 07/02/20 17:18 Dose: 21 units Documented by: Insulin Glargine (Insulin Glargine Solostar 100 Units/Ml 3 Ml Pen) 0 units SQ BID [facility]; Protocol Stop: 08/01/20 20:59 Lactobacillus Acidophilus (Floranex) 4 tab PO TID [facility] Stop: 08/01/20 08:59 Last Admin: 07/02/20 13:27 Dose: 4 tab Documented by: Magnesium Hydroxide (Milk Of Magnesia) 30 ml PO Q12H PRN PRN Reason: Constipation Stop: 07/31/20 18:01 Menthol (Cough Drop (Sugar Free) Elijah 24 Elijah/1 Box) 1 elijah BUCCAL Q4H PRN PRN Reason: Sore Throat Stop: 08/01/20 19:15 Metolazone (Zaroxolyn) 2.5 mg PO TuThSa@0900 [facility] Stop: 08/02/20 08:59 Miscellaneous (Carbohydrates For Hypoglycemia) 15 - 30 gm PO UD PRN PRN Reason: Hypoglycemia Protocol Stop: 07/31/20 20:26 Miscellaneous Information (Consult Glycemic Management Pharmacy) 1 ea N/A UD PRN PRN Reason: Consult Stop: 07/31/20 21:25 Oxycodone/Acetaminophen (Percocet 5mg/325mg) 1 tab PO Q8 PRN PRN Reason: Pain Stop: 07/15/20 20:26 Pantoprazole Sodium (Protonix) 40 mg PO QAM [facility] Stop: 08/01/20 08:59 Last Admin: 07/02/20 08:24 Dose: 40 mg Documented by: Polyethylene Glycol (Miralax Powder Packet) 17 gm PO DAILY PRN PRN Reason: Constipation Stop: 07/31/20 18:01 Potassium Chloride (Klor-Con M20) 40 meq PO DAILY [facility] Stop: 08/01/20 08:59 Last Admin: 07/02/20 08:23 Dose: 40 meq Documented by: Sennosides (Senokot) 17.2 mg PO DAILY PRN PRN Reason: Constipation Stop: 07/31/20 20:26 Sertraline HCl (Sertraline Hcl 100 Mg Tablet) 100 mg PO DAILY RADHA Stop: 08/02/20 08:59 Spironolactone (Aldactone) 50 mg PO BID RADHA Stop: 07/31/20 20:59 Last Admin: 07/02/20 08:24 Dose: 50 mg Documented by: Torsemide (Torsemide 20 Mg Tab) 80 mg PO BID RADHA Stop: 08/01/20 08:59 Umeclidinium [place] (Incruse Ellipta) 1 puffs INH DAILY RADHA Stop: 08/01/20 08:59 Last Admin: 07/02/20 08:42 Dose: Not Given Documented by: Vitamin D (Vitamin D3) 2,000 units PO DAILY RADHA Stop: 08/01/20 08:59 Last Admin: 07/02/20 08:23 Dose: 2,000 units Documented by:
[2020-07-02] MEDS ORDERED: COUGH DROP (SUGAR FREE) LOZ 24 LOZ/1 BOX BUCCAL PRN (19:30)
[2020-07-02] MEDS: cefTRIAXone SODIUM 2,000 MG in DEXTROSE 5% 50 ML IV SCH (21:47)
[2020-07-02] MEDS: OXYCODONE/ACETAMINOPHEN 5mg/325mg TAB PO PRN (21:50)
[2020-07-02 23:42] LABS: BUN Creatinine Ratio 18.5 (10-20); Calcium 9.2 mg/dl (8.5-10.1); Est GFR (African American) 87.1; Est GFR (Non-African American) 75.1; Potassium 3.2 mmol/L (3.5-5.1)
[2020-07-03] MEDS ORDERED: POTASSIUM CHLORIDE 20 MEQ TABCR PO STA ×2 (00:06→19:24)
[2020-07-03] MEDS: HEPARIN SODIUM (PORCINE) 7,500 UNITS in SYRINGE 0 ML SQ SCH ×3 (05:54→22:20)
--- NOTE | 2020-07-03 06:02 | Electrocardiogram Report ---
Test Reason : Blood Pressure : / mmHG Vent. Rate : 082 BPM Atrial Rate : 082 BPM P-R Int : 156 ms QRS Dur : 174 ms QT Int : 450 ms P-R-T Axes : 052 -18 010 degrees QTc Int : 525 ms Normal sinus rhythm Right bundle branch block Minimal voltage criteria for LVH, may be normal variant Abnormal ECG When compared with ECG of 23-APR-2020 22:30, No significant change was found Confirmed by Eric Ryan ([id number]) on 07/03/2020 6:01:49 AM Referred By: Chavo Roy Confirmed By:Eric Ryan
--- NOTE | 2020-07-03 06:12 | Electrocardiogram Report ---
Test Reason : Blood Pressure : / mmHG Vent. Rate : 077 BPM Atrial Rate : 077 BPM P-R Int : 158 ms QRS Dur : 174 ms QT Int : 456 ms P-R-T Axes : 054 -12 018 degrees QTc Int : 516 ms Normal sinus rhythm Right bundle branch block Abnormal ECG When compared with ECG of 01-JUL-2020 15:48, Nonspecific T wave abnormality no longer evident in Anterior leads Confirmed by Eric Ryan ([id number]) on 07/03/2020 6:12:35 AM Referred By: Chavo Roy Confirmed By:Eric Ryan
[2020-07-03 07:47] LABS: BUN Creatinine Ratio 19.9 (10-20); Calcium 8.6 mg/dl (8.5-10.1); Creatinine Clr Calc Pharmacy 160.7 ml/min; Est GFR (African American) 98.7; Est GFR (Non-African American) 85.1; Phosphorus 2.8 mg/dl (2.5-4.9)
[2020-07-03] MEDS: INSULIN ASPART 100 UNITS/ML 3 ML PEN SC SCH ×4 (08:03→21:15)
[2020-07-03] MEDS: CHOLECALCIFEROL 1,000 UNITS 25 MCG TAB PO SCH (08:05)
[2020-07-03] MEDS: LACTOBACILLUS ACIDOPHILUS (FLORANEX) TAB PO SCH ×3 (08:05→21:14)
[2020-07-03] MEDS: SERTRALINE HCL 100 MG TABLET PO SCH (08:05)
[2020-07-03] MEDS: FUROSEMIDE 40 MG in SYRINGE 0 ML IV SCH (08:05)
[2020-07-03] MEDS: SPIRONOLACTONE 25 MG TAB PO SCH ×2 (08:06→21:13)
[2020-07-03] MEDS: POTASSIUM CHLORIDE 20 MEQ TABCR PO SCH (08:06)
[2020-07-03] MEDS: PANTOprazole 40 MG TAB PO SCH (08:06)
[2020-07-03] MEDS: ASPIRIN 81 MG ECTAB PO SCH (08:06)
[2020-07-03] MEDS: metOLazone 2.5 MG TABLET PO SCH (08:06)
[2020-07-03] MEDS: UMECLIDINIUM BROMIDE 62.5MCG/BLISTER 7 PUFFS/INHALER INH SCH (08:08)
[2020-07-03 08:27] LABS: Magnesium 2.3 mg/dl (1.8-2.4); Potassium 4.7 mmol/L (3.5-5.1)
[2020-07-03] MEDS ORDERED: INSULIN GLARGINE SOLOSTAR 100 UNITS/ML 3 ML PEN SQ SCH (09:00)
--- NOTE | 2020-07-03 09:22 | Hospitalist Progress Note ---
Date of Service July 03, 2020 Assessment & Plan (1) Acute diastolic congestive heart failure: Volume overload/acute on chronic diastolic heart failure/ right-sided HF Presented with shortness of breath increased weight. worsening of bilateral lower extremity swelling History of diastolic dysfunction Echo on 04/22/2020: Moderate concentric left ventricular hypertrophy. Ejection fraction 60-65% Grade 1 diastolic dysfunction. Patient was given IV Lasix in the ER, 40 mg IV twice daily, now increased to 80 mg IV BID Monitor in PCU/telemetry Cardiology eval requested, Low-salt diet, fluid restriction 1500 mL a day Chronic bilateral lower extremity swelling/lymphedema: Presents with worsening of swelling in last few days Continue IV Lasix as outlined above Lower extremity Dopplers ordered to rule out DVT- negative LEFT FOOT PAIN : secondary to cellulitis xray - negative for any fractures Venous Doppler - no DVT, Bakers cyst on the left was recently started with PO keflex continue IV rocephin HYPONATREMIA : hard to assess intravascular vol status -given morbid obesity , body habitus clinically appears to be markedly vol overloaded cont IV lasix ordered for fluid restriction nephrology consulted, appreciate their input Hypokalemia: Potassium 2.7, possible secondary to home diuretics dose Patient denies of any nausea vomiting or diarrhea P.o. and IV potassium replacement done in ER Will continue to closely monitor and replete as needed Mag level within normal limit Type 2 diabetes: Presented with hyperglycemia, Very poorly controlled, current hemoglobin A1c 11% Pharmacy consulted for glycemic management Continue basal Lantus, added insulin sliding scale Blood sugar 341 in ER, no evidence of DKA with normal bicarb, normal beta hydroxybutyrate given 10 U of iv insulin in ER History of obesity hypoventilation syndrome/obstructive sleep apnea Continue BiPAP at night at home noncompliant with BiPAP Depression/ Anxiety Had SI comments while speaking w/ cardiology Psych consulted, Zoloft increased to 100 mg daily DVT prophylaxis: Moderate to high risk, subcu heparin CODE STATUS: Full code Disposition: Expected to be discharged home when medically stable Family medicine follow-up with Dr. Roy at [facility]. Admission and Anticipated Discharge Date Admission Date: July 01, 2020 Subjective Patient is currently sitting up in a chair, in no acute distress. He was moved to different room so he would have easier access to shower. Says that he was able to have BiPAP on for about 2 hours last night. Then the mask became too tight. And he was not able to sleep anymore. Asking about possibly going home. Appears depressed, seen by psychiatry yesterday, Zoloft increased to 100 mg daily. Patient's at the bedside, encouraging for the patient, to be more aggressive and motivated about his treatment. Per EMR, patient has been diuresing well, however his weight seems to be actually increased. One of these numbers must be not accurate. Review of Systems Respiratory: + dyspnea, + dyspnea on exertion and + snoring orthopnea Cardiovascular: + dyspnea, + dyspnea at rest and + dyspnea on exertion Additional Comments: severe bilateral lower extremity swelling Integumentary: severe bilateral swelling , with pain and swelling on left dorsal foot Physical Exam Physical Exam: Constitutional: WD/WN, vitals as above + morbidly obese male sitting up in chair in NAD Head: appears normocephalic Eyes: + anicteric sclerae, EOMI Respiratory: no cough Auscultation: + diminished lung sounds, mild bibasilar crackles, no wheezing noted Cardiovascular: Rate/Rhythm: regular rate and regular rhythm Extremities: + pedal edema and + edema severe bilateral lower ext edema Gastrointestinal (Abdomen): Percussion/Palpation: abdomen soft, nontender, obese, + bowel sounds Musculoskeletal: severe lower extremity swelling , lymphadenopathy , with chronic venous stasis changes noted pain and swelling with increased warmth on left dorsal foot, no open wound noted Neuro/ Psych: alert and oriented x3, answers questions appropriately, PERRL, EOMI, no face palsy, no dysarthria, moves extremities spontaneously, mood occasionally anxious, occasionally seems depressed Results & Data Results & Data ([facility]) Vital Signs (Past 12 Hours) Vital Signs Temp Pulse Pulse Resp BP Pulse Ox 07/03/20 07:26 36.4 C L 66 20 157/85 H 92 07/03/20 06:15 65 24 99 07/03/20 03:39 36.6 C 83 20 142/63 H 96 07/02/20 23:52 36.6 C 73 18 152/80 H 90 Laboratory Results 07/03/20 07/03/20 07/03/20 Range/Units 07:56 07:38 06:21 Sodium 131 L (136-145) mmol/L Potassium 4.7 D Chloride 93 L (98-107) mmol/L Carbon Dioxide 32 (21-32) mmol/L Anion Gap 6.0 (3-11) BUN 20 H (7-18) mg/dl Creatinine 1.01 (0.6-1.4) mg/dl Est Cr Clr Drug Dosing 160.7 ml/min Est GFR ( Amer) 98.7 Est GFR (Non-Af Amer) 85.1 BUN/Creatinine Ratio 19.9 (10-20) Glucose 252 H (70-99) mg/dl POC Glucose 251 H (70-99) mg/dl Calcium 8.6 (8.5-10.1) mg/dl Phosphorus 2.8 (2.5-4.9) mg/dl Magnesium 2.3 (1.8-2.4) mg/dl 07/02/20 07/02/20 07/02/20 Range/Units 23:07 20:10 17:07 Sodium 133 L (136-145) mmol/L Potassium 3.2 L 2.9 L Chloride 95 L (98-107) mmol/L Carbon Dioxide 32 (21-32) mmol/L Anion Gap 7.0 (3-11) BUN 21 H (7-18) mg/dl Creatinine 1.12 (0.6-1.4) mg/dl Est Cr Clr Drug Dosing 144.0 ml/min Est GFR ( Amer) 87.1 Est GFR (Non-Af Amer) 75.1 BUN/Creatinine Ratio 18.5 (10-20) Glucose 203 H (70-99) mg/dl POC Glucose 238 H (70-99) mg/dl Calcium 9.2 (8.5-10.1) mg/dl Phosphorus (2.5-4.9) mg/dl Magnesium (1.8-2.4) mg/dl 07/02/20 07/02/20 07/02/20 Range/Units 16:13 14:57 11:26 Sodium (136-145) mmol/L Potassium Cancelled Chloride (98-107) mmol/L Carbon Dioxide (21-32) mmol/L Anion Gap (3-11) BUN (7-18) mg/dl Creatinine (0.6-1.4) mg/dl Est Cr Clr Drug Dosing ml/min Est GFR ( Amer) Est GFR (Non-Af Amer) BUN/Creatinine Ratio (10-20) Glucose (70-99) mg/dl POC Glucose 206 H 287 H (70-99) mg/dl Calcium (8.5-10.1) mg/dl Phosphorus (2.5-4.9) mg/dl Magnesium (1.8-2.4) mg/dl Medications Administered Current Inpatient Medications Acetaminophen (Acetaminophen 325 Mg Tab) 650 mg PO Q4H PRN PRN Reason: Pain or Fever Stop: 07/31/20 18:01 Last Admin: 07/03/20 00:00 Dose: 650 mg Documented by: Al Hydrox/Mg Hydrox/Simethicone (Maalox) 15 ml PO Q4H PRN PRN Reason: Dyspepsia Stop: 07/31/20 18:01 Aspirin (Ecotrin Ectab) 81 mg PO DAILY RADHA Stop: 08/01/20 08:59 Last Admin: 07/03/20 08:06 Dose: 81 mg Documented by: Dextrose (Dextrose 50%) 25 - 50 ml IV UD PRN; Protocol PRN Reason: Hypoglycemia Protocol Stop: 07/31/20 20:26 Fluticasone Propionate (Flonase) 2 sprays GUSTABO DAILY PRN PRN Reason: Nasal Congestion Stop: 07/31/20 20:26 Glucagon (Glucagen) 1 mg SQ UD PRN; Protocol PRN Reason: Hypoglycemia Protocol Stop: 07/31/20 20:26 Glucose (Dex4 Glucose) 4 - 8 tabs PO UD PRN; Protocol PRN Reason: Hypoglycemia Protocol Stop: 07/31/20 20:26 Glucose (Glucose 40%) 15 - 30 gm PO UD PRN; Protocol PRN Reason: Hypoglycemia Protocol Stop: 07/31/20 20:26 Ceftriaxone Sodium 2,000 mg/ (Dextrose) 70 mls @ 100 mls/hr IV Q24H RADHA; Protocol Stop: 07/08/20 21:59 Last Infusion: 07/02/20 23:14 Dose: Infused Documented by: Heparin Sodium (Porcine) 7,500 (units/ Syringe) 0.75 mls @ 10 mls/min SQ Q8 RADHA Stop: 07/31/20 22:14 Last Admin: 07/03/20 05:54 Dose: 10 mls/min Documented by: Furosemide 40 mg/ Syringe 4 mls @ 4 mls/min IV BID17 RADHA Stop: 08/01/20 16:59 Last Admin: 07/03/20 08:05 Dose: 4 mls/min Documented by: Insulin Aspart (Insulin Aspart 100 Units/Ml 3 Ml Pen) 0 units SC ACHS [facility]; Protocol Stop: 07/31/20 20:59 Last Admin: 07/03/20 08:03 Dose: 38 units Documented by: Insulin Glargine (Insulin Glargine Solostar 100 Units/Ml 3 Ml Pen) 50 units SQ BID [facility]; Protocol Stop: 08/01/20 20:59 Last Admin: 07/03/20 08:06 Dose: 50 units Documented by: Lactobacillus Acidophilus (Floranex) 4 tab PO TID [facility] Stop: 08/01/20 08:59 Last Admin: 07/03/20 08:05 Dose: 4 tab Documented by: Magnesium Hydroxide (Milk Of Magnesia) 30 ml PO Q12H PRN PRN Reason: Constipation Stop: 07/31/20 18:01 Menthol (Cough Drop (Sugar Free) Vilma 24 Vilma/1 Box) 1 vilma BUCCAL Q4H PRN PRN Reason: Sore Throat Stop: 08/01/20 19:29 Metolazone (Zaroxolyn) 2.5 mg PO TuThSa@0900 [facility] Stop: 08/02/20 08:59 Last Admin: 07/03/20 08:06 Dose: 2.5 mg Documented by: Miscellaneous (Carbohydrates For Hypoglycemia) 15 - 30 gm PO UD PRN PRN Reason: Hypoglycemia Protocol Stop: 07/31/20 20:26 Miscellaneous Information (Consult Glycemic Management Pharmacy) 1 ea N/A UD PRN PRN Reason: Consult Stop: 07/31/20 21:25 Oxycodone/Acetaminophen (Oxycodone/Acetaminophen 5mg/325mg Tab) 1 tab PO Q8 PRN PRN Reason: Pain Stop: 07/15/20 20:26 Last Admin: 07/02/20 21:50 Dose: 1 tab Documented by: Pantoprazole Sodium (Protonix) 40 mg PO QAM [facility] Stop: 08/01/20 08:59 Last Admin: 07/03/20 08:06 Dose: 40 mg Documented by: Polyethylene Glycol (Miralax Powder Packet) 17 gm PO DAILY PRN PRN Reason: Constipation Stop: 07/31/20 18:01 Potassium Chloride (Klor-Con M20) 40 meq PO DAILY [facility] Stop: 08/01/20 08:59 Last Admin: 07/03/20 08:06 Dose: 40 meq Documented by: Sennosides (Senokot) 17.2 mg PO DAILY PRN PRN Reason: Constipation Stop: 07/31/20 20:26 Sertraline HCl (Sertraline Hcl 100 Mg Tablet) 100 mg PO DAILY RADHA Stop: 08/02/20 08:59 Last Admin: 07/03/20 08:05 Dose: 100 mg Documented by: Spironolactone (Aldactone) 50 mg PO BID RADHA Stop: 07/31/20 20:59 Last Admin: 07/03/20 08:06 Dose: 50 mg Documented by: Torsemide (Torsemide 20 Mg Tab) 80 mg PO BID RADHA Stop: 08/01/20 08:59 Umeclidinium [place] (Incruse Ellipta) 1 puffs INH DAILY RADHA Stop: 08/01/20 08:59 Last Admin: 07/03/20 08:08 Dose: Not Given Documented by: Vitamin D (Vitamin D3) 2,000 units PO DAILY RADHA Stop: 08/01/20 08:59 Last Admin: 07/03/20 08:05 Dose: 2,000 units Documented by:
[2020-07-03] MEDS: FUROSEMIDE 80 MG in SYRINGE 0 ML IV SCH ×2 (10:29→17:07)
--- NOTE | 2020-07-03 10:53 | Pharmacy Report ---
Pharmacy Glycemic Short Note 2 - Date of Service July 03, 2020 - Glycemic Short BSG Results (Last 24 hours): OUTPATIENT ANTIDIABETIC REGIMEN: * Trulicity 1.5 mg SC weekly + Lantus 40 unit SC HS + Novolog 10 units SC AC + Metformin 2 gm PO Daily * A1c = 11% from 07/01/2020 ASSESSMENT: 07/03: * Mr. Sanchez received a total of 195 units of insulin yesterday * 90 units basal + 105 units bolus * BSGs ranged 206-330 mg/dL - uncontrolled * Fasting BSG this AM was 251 mg/dL, uncontrolled. Will increase basal insulin per scale to represent a 10%, 15% or 20% increase depending on BSG. * Given hyperglycemia, tightened carb ratio this morning to match previous admission data. * Lunchtime BSG was 299 mg/dL. Will tighten dinner CF and CR further. 07/02: * 54 year old with diastolic CHF, bilateral lymphedema, foot pain, hyponatremia and hypokalemia. Type 2 diabetic with hyperglycemia on admission. * Pharmacy consulted for glycemic management. Known to glycemic service from other admissions, most recently 04/23/20 admission * Appears on last admission he was discharged on Lantus 40 units BID, however medication list on admission indicating only once daily. Will need to confirm home dosing. * BSG this AM elevated at 306 mg/dL - received 40 of basal last evening and 31 units of correctional insulin * Will plan to utilize similar parameters for insulin from last admission PLAN FOR INPATIENT GLYCEMIC CONTROL: * Hold outpatient oral diabetes medications * Basal insulin - increased * Lantus 50 units SQ x 1 this AM * Lantus 50-60 units SQ BID per scale (see eMAR for further details) * Bolus insulin - tightened CF & CR * NovoLog per scale ACHS or Q6hrs while NPO * Goal Range: Low 110 mg/dL - High 140 mg/dL * Correction Factor: 8 mg/dL/unit * Nutritional / Prandial insulin per carb ratio of 1 unit per 2 grams CHO consumed PLAN FOR DISCHARGE: * Patient with uncontrolled T2DM based on recent A1c of 8.6%. Per Annalisa JUNG, patient is extremely insulin resistant and has a poor PO diet at home. Also, he never increased his home dose of Lantus to 40 units BID after his last hospital discharge. Patient will likely require significant increases in home Lantus and Novolog doses prior to discharge. * Further recommendations to come.
--- NOTE | 2020-07-03 11:08 | Nephrology Progress Note ---
Date of Service July 03, 2020 Assessment & Plan (1) Hypokalemia: from diuresis. K was 2.7 8/12 AM and 2.9 that evening at 1700. on 40 mEq po daily; has also had 40 mEq doses po today in addition. magnesium acceptable. serum sodium about 134-135 when corrected for hyperglycemia--do not consider sodium his primary electrolyte issue>> on 07-03 though sodium 131 with better BG control and K now wnl -cont daily 40 K supplement (2) Electrolyte and fluid disorder: hyponatremia resolves to near normal when corrected for glucose though it is low end of normal -- at least it did through 07-02. now 130 on 07/03. -recheck bmp this afternoon -- monitor sodium and K -- ordered for 1400 -remains markedly volume overloaded but diuresing well and would continue current diuretic dosing, fluid and sodium limits, daily STANDING weights (3) Acute on chronic right-sided congestive heart failure: agree with diuretics per cardiology>>40 mg iv bid Admission and Anticipated Discharge Date Admission Date: July 01, 2020 Subjective sitting up in chair, states he feels "david" and not much improved physically >> unchanged edema. States he cannot elevate his legs without becoming sob and having pharyngeal "back up." denies voiding concerns. Review of Systems Review of Systems: All systems reviewed & are unremarkable except as noted in HPI & below Physical Exam Constitutional: well developed, well nourished and + morbidly obese; no acute distress sitting up on room air; doses off frequently during exam Eyes: EOM intact bilaterally ENMT: Ears: no external ear abnormality Nose: no external nose abnormality Mouth: + dry oral mucous membranes Neck: no nuchal rigidity Respiratory: normal respiratory effort Auscultation: + diminished lung sounds (crackles resolved today) Cardiovascular: Rate/Rhythm: regular rate (distant HS) and regular rhythm Extremities: + edema (2-3+ indurated) Gastrointestinal (Abdomen): Inspection/Auscultation: normal bowel sounds Percussion/Palpation: abdomen soft; abdomen nontender Musculoskeletal: Extremities: strength 5/5 throughout Skin: no rashes, warm and dry Neurologic: almeida, fluent speech, no tremor; doses off suddenly/briefly/ r epeatedly in eval Psychiatric: Orientation: alert and oriented x 3 Mood: + depressed mood and + anxious mood Results & Data ([facility]) Vital Signs (Past 12 Hours) Vital Signs Temp Pulse Pulse Resp BP Pulse Ox 07/03/20 07:26 36.4 C L 66 20 157/85 H 92 07/03/20 06:15 65 24 99 07/03/20 03:39 36.6 C 83 20 142/63 H 96 07/02/20 23:52 36.6 C 73 18 152/80 H 90 Laboratory Results 07/02/20 07:18 07/03/20 07:56 AM bmp reviewed; K inaccurate due to hemolysis
--- NOTE | 2020-07-03 12:21 | Cardiology Progress Note ---
Date of Service July 03, 2020 Assessment & Plan (1) Acute on chronic right-sided congestive heart failure: Multifactorial volume overload secondary to morbid obesity/hypoventilatory syndrome, non compliance with BIPAP/O2 therapy Recommend ongoing IV diuresis. Now that potassium levels have normalized, increase furosemide 80 mg IV twice daily. MOnitor I+O's. BMP in AM (2) Hypokalemia: Supplement with oral potassium continue spironolactone 50 mg BID Monitor (3) Pickwickian syndrome: We discussed his underlying obesity is playing a large role in his condition. He was previously referred to GI nutrition weight loss clinic for evaluation of bariatric surgery. He declined/refused and is still adamant about not proceeding with this option. (4) SIDRA treated with BiPAP: He is non compliant with BIPAP here at the hospital and at home, likely contributing to his volume overload and recurrent admissions. (5) Depression: Patient voices frustration regarding recurrent medical problems and recurrent admissions. Reports he "wants to go home and ". Psych consult recommended and assistance appreciated. Case discussed with Dr. Alston. Will follow during hospital course. Admission and Anticipated Discharge Date Admission Date: July 01, 2020 Supervising Physician Co-Signing Physician Notes Patient was seen and personally examined. Now responding to IV diuretics with brisk diuresis. Underlying pathology remains marked pickwickian physiology and morbid obesity. Patient only marginally compliant with medical therapies We will continue to treat as above and follow clinical Subjective Patient sitting up in chair sleeping. . Not currently wearing oxygen or BiPAP. Attempted to wear BiPAP last evening but only tolerated for a short time per patient. Patient voices frustration regarding needing this device. Does not feel it helps or is important. He reported worsening shortness of breath this morning but now improving. He notes frequent And aggressive urination / diuresis. He denies chest pain. Output of 3.7 L in the last 24 hours but unfortunately patient appeared to gained 2 kg this morning. Unsure if this is accurate. Review of Systems Review of Systems: All systems reviewed & are unremarkable except as noted in HPI & below Physical Exam Constitutional: WD/WN, vitals as above + morbidly obese; no acute distress Respiratory: + labored breathing Auscultation: + diminished lung sounds Cardiovascular: Rate/Rhythm: regular rhythm Extremities: + edema (2-3+ LE edema b/l with hard indurated chronic stasis changes) Gastrointestinal (Abdomen): normal bowel sounds, soft, nontender, no hepatosplenomegaly Neurologic: PERRL, EOMI, accommodation nl, no face palsy, no dysarthria Psychiatric: Mood: + depressed mood and + irritable mood Judgement: + poor judgement Results & Data ([facility]) Vital Signs (Past 12 Hours) Vital Signs Temp Pulse Pulse Resp BP Pulse Ox 07/03/20 07:26 36.4 C L 66 20 157/85 H 92 07/03/20 06:15 65 24 99 07/03/20 03:39 36.6 C 83 20 142/63 H 96 Laboratory Results 07/03/20 07/03/20 07/03/20 Range/Units 11:32 07:56 07:38 Sodium (136-145) mmol/L Potassium 4.7 D Chloride (98-107) mmol/L Carbon Dioxide (21-32) mmol/L Anion Gap (3-11) BUN (7-18) mg/dl Creatinine (0.6-1.4) mg/dl Est Cr Clr Drug Dosing ml/min Est GFR ( Amer) Est GFR (Non-Af Amer) BUN/Creatinine Ratio (10-20) Glucose (70-99) mg/dl POC Glucose 299 H 251 H (70-99) mg/dl Calcium (8.5-10.1) mg/dl Phosphorus (2.5-4.9) mg/dl Magnesium 2.3 (1.8-2.4) mg/dl 07/03/20 07/02/20 07/02/20 Range/Units 06:21 23:07 20:10 Sodium 131 L 133 L (136-145) mmol/L Potassium 3.2 L Chloride 93 L 95 L (98-107) mmol/L Carbon Dioxide 32 32 (21-32) mmol/L Anion Gap 6.0 7.0 (3-11) BUN 20 H 21 H (7-18) mg/dl Creatinine 1.01 1.12 (0.6-1.4) mg/dl Est Cr Clr Drug Dosing 160.7 144.0 ml/min Est GFR ( Amer) 98.7 87.1 Est GFR (Non-Af Amer) 85.1 75.1 BUN/Creatinine Ratio 19.9 18.5 (10-20) Glucose 252 H 203 H (70-99) mg/dl POC Glucose 238 H (70-99) mg/dl Calcium 8.6 9.2 (8.5-10.1) mg/dl Phosphorus 2.8 (2.5-4.9) mg/dl Magnesium (1.8-2.4) mg/dl 07/02/20 07/02/20 07/02/20 Range/Units 17:07 16:13 14:57 Sodium (136-145) mmol/L Potassium 2.9 L Cancelled Chloride (98-107) mmol/L Carbon Dioxide (21-32) mmol/L Anion Gap (3-11) BUN (7-18) mg/dl Creatinine (0.6-1.4) mg/dl Est Cr Clr Drug Dosing ml/min Est GFR ( Amer) Est GFR (Non-Af Amer) BUN/Creatinine Ratio (10-20) Glucose (70-99) mg/dl POC Glucose 206 H (70-99) mg/dl Calcium (8.5-10.1) mg/dl Phosphorus (2.5-4.9) mg/dl Magnesium (1.8-2.4) mg/dl Diagnostic Findings Telemetry reviewed: Normal sinus rhythm 70-90 beats per minute. No concerning arrhythmias. Medications Administered Current Inpatient Medications Acetaminophen (Acetaminophen 325 Mg Tab) 650 mg PO Q4H PRN PRN Reason: Pain or Fever Stop: 07/31/20 18:01 Last Admin: 07/03/20 00:00 Dose: 650 mg Documented by: Al Hydrox/Mg Hydrox/Simethicone (Maalox) 15 ml PO Q4H PRN PRN Reason: Dyspepsia Stop: 07/31/20 18:01 Aspirin (Ecotrin Ectab) 81 mg PO DAILY RADHA Stop: 08/01/20 08:59 Last Admin: 07/03/20 08:06 Dose: 81 mg Documented by: Dextrose (Dextrose 50%) 25 - 50 ml IV UD PRN; Protocol PRN Reason: Hypoglycemia Protocol Stop: 07/31/20 20:26 Fluticasone Propionate (Flonase) 2 sprays GSUTABO DAILY PRN PRN Reason: Nasal Congestion Stop: 07/31/20 20:26 Glucagon (Glucagen) 1 mg SQ UD PRN; Protocol PRN Reason: Hypoglycemia Protocol Stop: 07/31/20 20:26 Glucose (Dex4 Glucose) 4 - 8 tabs PO UD PRN; Protocol PRN Reason: Hypoglycemia Protocol Stop: 07/31/20 20:26 Glucose (Glucose 40%) 15 - 30 gm PO UD PRN; Protocol PRN Reason: Hypoglycemia Protocol Stop: 07/31/20 20:26 Ceftriaxone Sodium 2,000 mg/ (Dextrose) 70 mls @ 100 mls/hr IV Q24H [facility]; Protocol Stop: 07/08/20 21:59 Last Infusion: 07/02/20 23:14 Dose: Infused Documented by: Heparin Sodium (Porcine) 7,500 (units/ Syringe) 0.75 mls @ 10 mls/min SQ Q8 [facility] Stop: 07/31/20 22:14 Last Admin: 07/03/20 05:54 Dose: 10 mls/min Documented by: Furosemide 80 mg/ Syringe 8 mls @ 4 mls/min IV BID17 [facility] Stop: 08/02/20 09:59 Last Admin: 07/03/20 10:29 Dose: 4 mls/min Documented by: Insulin Aspart (Insulin Aspart 100 Units/Ml 3 Ml Pen) 0 units SC ACHS [facility]; Protocol Stop: 07/31/20 20:59 Last Admin: 07/03/20 12:13 Dose: 44 units Documented by: Insulin Glargine (Insulin Glargine Solostar 100 Units/Ml 3 Ml Pen) 50 units SQ BID [facility]; Protocol Stop: 08/01/20 20:59 Last Admin: 07/03/20 08:06 Dose: 50 units Documented by: Lactobacillus Acidophilus (Floranex) 4 tab PO TID [facility] Stop: 08/01/20 08:59 Last Admin: 07/03/20 08:05 Dose: 4 tab Documented by: Magnesium Hydroxide (Milk Of Magnesia) 30 ml PO Q12H PRN PRN Reason: Constipation Stop: 07/31/20 18:01 Menthol (Cough Drop (Sugar Free) Elijah 24 Elijah/1 Box) 1 elijah BUCCAL Q4H PRN PRN Reason: Sore Throat Stop: 08/01/20 19:29 Metolazone (Zaroxolyn) 2.5 mg PO TuThSa@0900 [facility] Stop: 08/02/20 08:59 Last Admin: 07/03/20 08:06 Dose: 2.5 mg Documented by: Miscellaneous (Carbohydrates For Hypoglycemia) 15 - 30 gm PO UD PRN PRN Reason: Hypoglycemia Protocol Stop: 07/31/20 20:26 Miscellaneous Information (Consult Glycemic Management Pharmacy) 1 ea N/A UD PRN PRN Reason: Consult Stop: 07/31/20 21:25 Oxycodone/Acetaminophen (Oxycodone/Acetaminophen 5mg/325mg Tab) 1 tab PO Q8 PRN PRN Reason: Pain Stop: 07/15/20 20:26 Last Admin: 07/02/20 21:50 Dose: 1 tab Documented by: Pantoprazole Sodium (Protonix) 40 mg PO QAM RADHA Stop: 08/01/20 08:59 Last Admin: 07/03/20 08:06 Dose: 40 mg Documented by: Polyethylene Glycol (Miralax Powder Packet) 17 gm PO DAILY PRN PRN Reason: Constipation Stop: 07/31/20 18:01 Potassium Chloride (Klor-Con M20) 40 meq PO DAILY RADHA Stop: 08/01/20 08:59 Last Admin: 07/03/20 08:06 Dose: 40 meq Documented by: Sennosides (Senokot) 17.2 mg PO DAILY PRN PRN Reason: Constipation Stop: 07/31/20 20:26 Sertraline HCl (Sertraline Hcl 100 Mg Tablet) 100 mg PO DAILY RADHA Stop: 08/02/20 08:59 Last Admin: 07/03/20 08:05 Dose: 100 mg Documented by: Spironolactone (Aldactone) 50 mg PO BID RADHA Stop: 07/31/20 20:59 Last Admin: 07/03/20 08:06 Dose: 50 mg Documented by: Torsemide (Torsemide 20 Mg Tab) 80 mg PO BID RADHA Stop: 08/01/20 08:59 Umeclidinium [place] (Incruse Ellipta) 1 puffs INH DAILY [facility] Stop: 08/01/20 08:59 Last Admin: 07/03/20 08:08 Dose: Not Given Documented by: Vitamin D (Vitamin D3) 2,000 units PO DAILY RADHA Stop: 08/01/20 08:59 Last Admin: 07/03/20 08:05 Dose: 2,000 units Documented by:
[2020-07-03 15:21] LABS: Calcium 8.1 mg/dl (8.5-10.1); Creatinine Clr Calc Pharmacy 130.9 ml/min; Est GFR (Non-African American) 66.4
[2020-07-03 15:24] LABS: BUN Creatinine Ratio 17.3 (10-20); Potassium 3.3 mmol/L (3.5-5.1)
[2020-07-03] MEDS: NICOTINE 14 MG/24 HR PATCH TD SCH (17:06)
[2020-07-03] MEDS: INSULIN GLARGINE SOLOSTAR 100 UNITS/ML 3 ML PEN SQ SCH (21:14)
[2020-07-03] MEDS: ACETAMINOPHEN 325 MG TAB PO PRN ×2 (21:29)
[2020-07-03] MEDS: cefTRIAXone SODIUM 2,000 MG in DEXTROSE 5% 50 ML IV SCH (22:20)
[2020-07-04] MEDS: HEPARIN SODIUM (PORCINE) 7,500 UNITS in SYRINGE 0 ML SQ SCH ×3 (05:33→20:55)
[2020-07-04 06:13] LABS: Hematocrit (blood only) 40.8 % (42-52); Hemoglobin 13.6 g/dL (14.0-18.0); Mean Corpuscular Hemoglobin 30.6 pg (25-34); Mean Corpuscular Hgb Conc 33.3 g/dL (32-36); Mean Corpuscular Volume 91.9 fL (80-100); Mean Platelet Volume 10.9 fL (7.4-10.4); Platelet Count 226 K/uL (130-400); RDW Coefficient of Variation 15.9 % (11.5-14.5); RDW Standard Deviation 52.4 fL (36.4-46.3); Red Blood Count 4.44 M/uL (4.7-6.1); White Blood Count 6.82 K/uL (4.8-10.8)
--- NOTE | 2020-07-04 06:16 | Electrocardiogram Report ---
Test Reason : Blood Pressure : / mmHG Vent. Rate : 060 BPM Atrial Rate : 060 BPM P-R Int : 174 ms QRS Dur : 168 ms QT Int : 482 ms P-R-T Axes : 034 -21 -07 degrees QTc Int : 482 ms Normal sinus rhythm Right bundle branch block Minimal voltage criteria for LVH, may be normal variant ( R in aVL ) Abnormal ECG When compared with ECG of 02-JUL-2020 06:32, No significant change was found Confirmed by Eric Ryan ([id number]) on 07/04/2020 6:16:36 AM Referred By: Chavo Roy Confirmed By:Eric Ryan
[2020-07-04 06:41] LABS: BUN Creatinine Ratio 20.5 (10-20); Calcium 8.7 mg/dl (8.5-10.1); Creatinine Clr Calc Pharmacy 149.6 ml/min; Est GFR (Non-African American) 78.5; Magnesium 2.2 mg/dl (1.8-2.4)
[2020-07-04] MEDS: SERTRALINE HCL 100 MG TABLET PO SCH (08:19)
[2020-07-04] MEDS: PANTOprazole 40 MG TAB PO SCH (08:19)
[2020-07-04] MEDS: ASPIRIN 81 MG ECTAB PO SCH (08:19)
[2020-07-04] MEDS: FUROSEMIDE 80 MG in SYRINGE 0 ML IV SCH ×2 (08:19→17:13)
[2020-07-04] MEDS: LACTOBACILLUS ACIDOPHILUS (FLORANEX) TAB PO SCH ×3 (08:20→20:20)
[2020-07-04] MEDS: SPIRONOLACTONE 25 MG TAB PO SCH ×2 (08:20→20:20)
[2020-07-04] MEDS: CHOLECALCIFEROL 1,000 UNITS 25 MCG TAB PO SCH (08:21)
[2020-07-04] MEDS: UMECLIDINIUM BROMIDE 62.5MCG/BLISTER 7 PUFFS/INHALER INH SCH (08:21)
[2020-07-04] MEDS: POTASSIUM CHLORIDE 20 MEQ TABCR PO SCH ×3 (08:21→20:20)
[2020-07-04] MEDS: NICOTINE 14 MG/24 HR PATCH TD SCH (08:22)
[2020-07-04] MEDS: INSULIN GLARGINE SOLOSTAR 100 UNITS/ML 3 ML PEN SQ SCH ×2 (08:22→20:54)
[2020-07-04] MEDS: INSULIN ASPART 100 UNITS/ML 3 ML PEN SC SCH ×4 (08:23→20:52)
--- NOTE | 2020-07-04 08:49 | Hospitalist Progress Note ---
Date of Service July 04, 2020 Assessment & Plan (1) Acute diastolic congestive heart failure: Volume overload/acute on chronic diastolic heart failure/ right-sided HF Presented with shortness of breath increased weight. worsening of bilateral lower extremity swelling History of diastolic dysfunction Echo on 04/22/2020: Moderate concentric left ventricular hypertrophy. Ejection fraction 60-65% Grade 1 diastolic dysfunction. Patient was given IV Lasix in the ER, 40 mg IV twice daily, now increased to 80 mg IV BID Monitor in PCU/telemetry Cardiology consulted, appreciate their input Low-salt diet, fluid restriction 1500 mL a day Chronic bilateral lower extremity swelling/lymphedema: Presents with worsening of swelling in last few days Continue IV Lasix as outlined above Lower extremity Dopplers ordered to rule out DVT- negative LEFT FOOT PAIN : secondary to increased edema due to right-sided heart failure, and likely cellulitis xray - negative for any fractures Venous Doppler - no DVT, Bakers cyst on the left was recently started with PO keflex continue IV rocephin HYPONATREMIA : hard to assess intravascular vol status -given morbid obesity , body habitus clinically appears to be markedly vol overloaded cont IV lasix ordered for fluid restriction nephrology consulted, appreciate their input Hypokalemia: Potassium 2.7, possible secondary to home diuretics dose Patient denies of any nausea vomiting or diarrhea P.o. and IV potassium replacement done in ER Will continue to closely monitor and replete as needed Mag level within normal limit Type 2 diabetes: Presented with hyperglycemia, Very poorly controlled, current hemoglobin A1c 11% Pharmacy consulted for glycemic management Continue basal Lantus, added insulin sliding scale Blood sugar 341 in ER, no evidence of DKA with normal bicarb, normal beta hydroxybutyrate given 10 U of iv insulin in ER History of obesity hypoventilation syndrome/obstructive sleep apnea Continue BiPAP at night at home noncompliant with BiPAP Depression/ Anxiety Had SI comments while speaking w/ cardiology Psych consulted, Zoloft increased to 100 mg daily DVT prophylaxis: Moderate to high risk, subcu heparin CODE STATUS: Full code Disposition: Expected to be discharged home when medically stable Family medicine follow-up with Dr. Roy at [facility]. Admission and Anticipated Discharge Date Admission Date: July 01, 2020 Subjective Patient is currently lying in bed, on his back, in no acute distress. Encouraged lower extremity elevation. Patient continues to diurese, however his weight is not significantly lower. Denies any fevers, chills, chest pain, states he has some shortness of breath when he is lying flat. States that he was using BiPAP overnight. And encouraged BiPAP when sleeping. Describes likely sciatica pain, radiating from his left buttocks to his left knee as he is lying in bed. States that the bed is not so comfortable. Review of Systems Respiratory: + dyspnea, + dyspnea on exertion and + snoring orthopnea Cardiovascular: + dyspnea, + dyspnea at rest and + dyspnea on exertion Additional Comments: severe bilateral lower extremity swelling Integumentary: severe bilateral swelling , with pain and swelling on left dorsal foot Physical Exam Physical Exam: Constitutional: WD/WN, vitals as above + morbidly obese male laying in bed, in NAD Head: appears normocephalic Eyes: + anicteric sclerae, EOMI Respiratory: no cough Auscultation: + diminished lung sounds, mild bibasilar crackles, no wheezing noted Cardiovascular: Rate/Rhythm: regular rate and regular rhythm Extremities: + pedal edema and + edema severe bilateral lower ext edema, venous stasis changes noted Gastrointestinal (Abdomen): Percussion/Palpation: abdomen soft, nontender, obese, + bowel sounds Musculoskeletal: severe lower extremity swelling , lymphadenopathy , with chronic venous stasis changes noted pain and swelling with increased warmth on left dorsal foot, no open wound noted Neuro/ Psych: alert and oriented x3, answers questions appropriately, PERRL, EOMI, no face palsy, no dysarthria, moves extremities spontaneously, mood occasionally anxious, occasionally seems depressed Results & Data Results & Data ([facility]) Vital Signs (Past 12 Hours) Vital Signs Temp Pulse Resp BP BP Pulse Ox 07/04/20 07:01 36.3 C L 69 20 165/51 H 90 07/04/20 03:06 36.6 C 85 23 107/76 94 07/03/20 23:20 36.6 C 81 24 130/80 95 Laboratory Results 07/04/20 07/04/20 07/04/20 Range/Units 07:24 05:48 05:48 WBC 6.82 (4.8-10.8) K/uL RBC 4.44 L (4.7-6.1) M/uL Hgb 13.6 L (14.0-18.0) g/dL Hct 40.8 L (42-52) % MCV 91.9 (80-100) fL MCH 30.6 (25-34) pg MCHC 33.3 (32-36) g/dL RDW Std Deviation 52.4 H (36.4-46.3) fL RDW Coeff of Orqu[place] 15.9 H (11.5-14.5) % Plt Count 226 (130-400) K/uL MPV 10.9 H (7.4-10.4) fL Sodium 134 L (136-145) mmol/L Potassium 3.0 L (3.5-5.1) mmol/L Chloride 94 L (98-107) mmol/L Carbon Dioxide 34 H (21-32) mmol/L Anion Gap 6.0 (3-11) BUN 22 H (7-18) mg/dl Creatinine 1.08 (0.6-1.4) mg/dl Est Cr Clr Drug Dosing 149.6 ml/min Est GFR ( Amer) 91.0 Est GFR (Non-Af Amer) 78.5 BUN/Creatinine Ratio 20.5 H (10-20) Glucose 186 H (70-99) mg/dl POC Glucose 215 H (70-99) mg/dl Calcium 8.7 (8.5-10.1) mg/dl Magnesium 2.2 (1.8-2.4) mg/dl 07/03/20 07/03/20 07/03/20 Range/Units 21:07 15:57 13:58 WBC (4.8-10.8) K/uL RBC (4.7-6.1) M/uL Hgb (14.0-18.0) g/dL Hct (42-52) % MCV (80-100) fL MCH (25-34) pg MCHC (32-36) g/dL RDW Std Deviation (36.4-46.3) fL RDW Coeff of [place]qu[place] (11.5-14.5) % Plt Count (130-400) K/uL MPV (7.4-10.4) fL Sodium 132 L (136-145) mmol/L Potassium 3.3 L D (3.5-5.1) mmol/L Chloride 95 L (98-107) mmol/L Carbon Dioxide 28 (21-32) mmol/L Anion Gap 9.0 (3-11) BUN 21 H (7-18) mg/dl Creatinine 1.24 (0.6-1.4) mg/dl Est Cr Clr Drug Dosing 130.9 ml/min Est GFR ( Amer) 77.0 Est GFR (Non-Af Amer) 66.4 BUN/Creatinine Ratio 17.3 (10-20) Glucose 275 H (70-99) mg/dl POC Glucose 199 H 210 H (70-99) mg/dl Calcium 8.1 L (8.5-10.1) mg/dl Magnesium (1.8-2.4) mg/dl 07/03/20 Range/Units 11:32 WBC (4.8-10.8) K/uL RBC (4.7-6.1) M/uL Hgb (14.0-18.0) g/dL Hct (42-52) % MCV (80-100) fL MCH (25-34) pg MCHC (32-36) g/dL RDW Std Deviation (36.4-46.3) fL RDW Coeff of Orquidea (11.5-14.5) % Plt Count (130-400) K/uL MPV (7.4-10.4) fL Sodium (136-145) mmol/L Potassium (3.5-5.1) mmol/L Chloride (98-107) mmol/L Carbon Dioxide (21-32) mmol/L Anion Gap (3-11) BUN (7-18) mg/dl Creatinine (0.6-1.4) mg/dl Est Cr Clr Drug Dosing ml/min Est GFR ( Amer) Est GFR (Non-Af Amer) BUN/Creatinine Ratio (10-20) Glucose (70-99) mg/dl POC Glucose 299 H (70-99) mg/dl Calcium (8.5-10.1) mg/dl Magnesium (1.8-2.4) mg/dl Medications Administered Current Inpatient Medications Acetaminophen (Acetaminophen 325 Mg Tab) 650 mg PO Q4H PRN PRN Reason: Pain or Fever Stop: 07/31/20 18:01 Last Admin: 07/03/20 21:29 Dose: 650 mg Documented by: Al Hydrox/Mg Hydrox/Simethicone (Maalox) 15 ml PO Q4H PRN PRN Reason: Dyspepsia Stop: 07/31/20 18:01 Aspirin (Ecotrin Ectab) 81 mg PO DAILY RADHA Stop: 08/01/20 08:59 Last Admin: 07/04/20 08:19 Dose: 81 mg Documented by: Dextrose (Dextrose 50%) 25 - 50 ml IV UD PRN; Protocol PRN Reason: Hypoglycemia Protocol Stop: 07/31/20 20:26 Fluticasone Propionate (Flonase) 2 sprays GUSTABO DAILY PRN PRN Reason: Nasal Congestion Stop: 07/31/20 20:26 Glucagon (Glucagen) 1 mg SQ UD PRN; Protocol PRN Reason: Hypoglycemia Protocol Stop: 07/31/20 20:26 Glucose (Dex4 Glucose) 4 - 8 tabs PO UD PRN; Protocol PRN Reason: Hypoglycemia Protocol Stop: 07/31/20 20:26 Glucose (Glucose 40%) 15 - 30 gm PO UD PRN; Protocol PRN Reason: Hypoglycemia Protocol Stop: 07/31/20 20:26 Ceftriaxone Sodium 2,000 mg/ (Dextrose) 70 mls @ 100 mls/hr IV Q24H [facility]; Protocol Stop: 07/08/20 21:59 Last Infusion: 07/03/20 23:00 Dose: Infused Documented by: Heparin Sodium (Porcine) 7,500 (units/ Syringe) 0.75 mls @ 10 mls/min SQ Q8 [facility] Stop: 07/31/20 22:14 Last Admin: 07/04/20 05:33 Dose: 10 mls/min Documented by: Furosemide 80 mg/ Syringe 8 mls @ 4 mls/min IV BID17 [facility] Stop: 08/02/20 09:59 Last Admin: 07/04/20 08:19 Dose: 4 mls/min Documented by: Insulin Aspart (Insulin Aspart 100 Units/Ml 3 Ml Pen) 0 units SC ACHS [facility]; Protocol Stop: 07/31/20 20:59 Last Admin: 07/04/20 08:23 Dose: 37 units Documented by: Insulin Glargine (Insulin Glargine Solostar 100 Units/Ml 3 Ml Pen) 0 units SQ BID [facility]; Protocol Stop: 08/01/20 20:59 Last Admin: 07/04/20 08:22 Dose: 60 units Documented by: Lactobacillus Acidophilus (Floranex) 4 tab PO TID [facility] Stop: 08/01/20 08:59 Last Admin: 08/14/20 08:20 Dose: 4 tab Documented by: Magnesium Hydroxide (Milk Of Magnesia) 30 ml PO Q12H PRN PRN Reason: Constipation Stop: 07/31/20 18:01 Menthol (Cough Drop (Sugar Free) Elijah 24 Elijah/1 Box) 1 elijah BUCCAL Q4H PRN PRN Reason: Sore Throat Stop: 08/01/20 19:29 Metolazone (Zaroxolyn) 2.5 mg PO TuThSa@0900 [facility] Stop: 08/02/20 08:59 Last Admin: 07/03/20 08:06 Dose: 2.5 mg Documented by: Miscellaneous (Carbohydrates For Hypoglycemia) 15 - 30 gm PO UD PRN PRN Reason: Hypoglycemia Protocol Stop: 07/31/20 20:26 Miscellaneous (Remove Nicoderm Patch) 1 ea N/A DAILY@0859 [facility] Stop: 08/03/20 08:58 Last Admin: 07/04/20 08:20 Dose: 1 ea Documented by: Miscellaneous Information (Consult Glycemic Management Pharmacy) 1 ea N/A UD PRN PRN Reason: Consult Stop: 07/31/20 21:25 Nicotine (Nicotine 14 Mg/24 Hr Patch) [facility] [place] [place] Stop: 08/02/20 16:14 Last Admin: 07/04/20 08:22 Dose: Not Given Documented by: Oxycodone/Acetaminophen (Oxycodone/Acetaminophen 5mg/325mg Tab) 1 tab PO Q8 PRN PRN Reason: Pain Stop: 07/15/20 20:26 Last Admin: 07/02/20 21:50 Dose: 1 tab Documented by: Pantoprazole Sodium (Protonix) 40 mg PO QAM [facility] Stop: 08/01/20 08:59 Last Admin: 07/04/20 08:19 Dose: 40 mg Documented by: Polyethylene Glycol (Miralax Powder Packet) 17 gm PO DAILY PRN PRN Reason: Constipation Stop: 07/31/20 18:01 Potassium Chloride (Klor-Con M20) 40 meq PO DAILY [facility] Stop: 08/01/20 08:59 Last Admin: 07/04/20 08:21 Dose: 40 meq Documented by: Potassium Chloride (Potassium Chloride 20 Meq Tabcr) 40 meq PO NOW ONE Stop: 07/04/20 11:01 Sennosides (Senokot) 17.2 mg PO DAILY PRN PRN Reason: Constipation Stop: 07/31/20 20:26 Sertraline HCl (Sertraline Hcl 100 Mg Tablet) 100 mg PO DAILY [facility] Stop: 08/02/20 08:59 Last Admin: 07/04/20 08:19 Dose: 100 mg Documented by: Spironolactone (Aldactone) 50 mg PO BID [facility] Stop: 07/31/20 20:59 Last Admin: 07/04/20 08:20 Dose: 50 mg Documented by: Torsemide (Torsemide 20 Mg Tab) 80 mg PO BID [facility] Stop: 08/01/20 08:59 Umeclidinium [place] (Incruse Ellipta) 1 puffs INH DAILY [facility] Stop: 08/01/20 08:59 Last Admin: 07/04/20 08:21 Dose: 1 puffs Documented by: Vitamin D (Vitamin D3) 2,000 units PO DAILY [facility] Stop: 08/01/20 08:59 Last Admin: 07/04/20 08:21 Dose: 2,000 units Documented by:
--- NOTE | 2020-07-04 10:59 | Cardiology Progress Note ---
Date of Service July 04, 2020 Assessment & Plan (1) Acute on chronic right-sided congestive heart failure: Multifactorial volume overload secondary to morbid obesity/hypoventilatory syndrome, non compliance with BIPAP/O2 therapy Recommend ongoing IV diuresis. Continue furosemide 80 mg IV BID. MOnitor I+O's. BMP in AM (2) Hypokalemia: Supplement with oral potassium 40 TID. Additional dose this morning already ordered by hospitalist. continue spironolactone 50 mg BID Monitor (3) Pickwickian syndrome: We discussed his underlying obesity is playing a large role in his condition. He was previously referred to [facility] weight loss clinic for evaluation of bariatric surgery. He declined/refused and is still adamant about not proceeding with this option. (4) SIDRA treated with BiPAP: He is non compliant with BIPAP here at the hospital and at home, likely contributing to his volume overload and recurrent admissions. (5) Depression: Patient voices frustration regarding recurrent medical problems and recurrent admissions. Reports he "wants to go home and ". Psych consult recommended and assistance appreciated. Case discussed with Dr. Alston. Will follow during hospital course. Admission and Anticipated Discharge Date Admission Date: July 01, 2020 Supervising Physician Co-Signing Physician Notes Patient was seen and personally examined. Full assessment as well outlined above. Patient is responding to inpatient therapy with brisk diuresis but with substantial volume overload right greater than left still present Continue to encourage use of therapies for sleep apnea. Pickwickian morbid obesity predominant contributing factor Subjective Patient more awake/alert this morning. Not falling asleep sitting up mid conversation. Denies chest pain. Ongoing dyspnea noted. Good diuresis over the last 24 hours, 5 L output. Review of Systems Review of Systems: All systems reviewed & are unremarkable except as noted in HPI & below Physical Exam Constitutional: WD/WN, vitals as above + morbidly obese; no acute distress Respiratory: + labored breathing Auscultation: + diminished lung sounds Cardiovascular: Rate/Rhythm: regular rhythm Extremities: + edema (2-3+ LE edema b/l with hard indurated chronic stasis changes) Gastrointestinal (Abdomen): normal bowel sounds, soft, nontender, no hepatosplenomegaly Neurologic: PERRL, EOMI, accommodation nl, no face palsy, no dysarthria Psychiatric: Mood: + depressed mood and + irritable mood Judgement: + poor judgement Results & Data ([facility]) Vital Signs (Past 12 Hours) Vital Signs Temp Pulse Resp BP BP Pulse Ox 07/04/20 10:45 36.8 C 75 22 141/75 H 95 07/04/20 07:01 36.3 C L 69 20 165/51 H 90 07/04/20 03:06 36.6 C 85 23 107/76 94 07/03/20 23:20 36.6 C 81 24 130/80 95 Laboratory Results 07/04/20 07/04/20 07/04/20 Range/Units 07:24 05:48 05:48 WBC 6.82 (4.8-10.8) K/uL RBC 4.44 L (4.7-6.1) M/uL Hgb 13.6 L (14.0-18.0) g/dL Hct 40.8 L (42-52) % MCV 91.9 (80-100) fL MCH 30.6 (25-34) pg MCHC 33.3 (32-36) g/dL RDW Std Deviation 52.4 H (36.4-46.3) fL RDW Coeff of Orquidea 15.9 H (11.5-14.5) % Plt Count 226 (130-400) K/uL MPV 10.9 H (7.4-10.4) fL Sodium 134 L (136-145) mmol/L Potassium 3.0 L (3.5-5.1) mmol/L Chloride 94 L (98-107) mmol/L Carbon Dioxide 34 H (21-32) mmol/L Anion Gap 6.0 (3-11) BUN 22 H (7-18) mg/dl Creatinine 1.08 (0.6-1.4) mg/dl Est Cr Clr Drug Dosing 149.6 ml/min Est GFR ( Amer) 91.0 Est GFR (Non-Af Amer) 78.5 BUN/Creatinine Ratio 20.5 H (10-20) Glucose 186 H (70-99) mg/dl POC Glucose 215 H (70-99) mg/dl Calcium 8.7 (8.5-10.1) mg/dl Magnesium 2.2 (1.8-2.4) mg/dl 07/03/20 07/03/20 07/03/20 Range/Units 21:07 15:57 13:58 WBC (4.8-10.8) K/uL RBC (4.7-6.1) M/uL Hgb (14.0-18.0) g/dL Hct (42-52) % MCV (80-100) fL MCH (25-34) pg MCHC (32-36) g/dL RDW Std Deviation (36.4-46.3) fL RDW Coeff of Orquidea (11.5-14.5) % Plt Count (130-400) K/uL MPV (7.4-10.4) fL Sodium 132 L (136-145) mmol/L Potassium 3.3 L D (3.5-5.1) mmol/L Chloride 95 L (98-107) mmol/L Carbon Dioxide 28 (21-32) mmol/L Anion Gap 9.0 (3-11) BUN 21 H (7-18) mg/dl Creatinine 1.24 (0.6-1.4) mg/dl Est Cr Clr Drug Dosing 130.9 ml/min Est GFR ( Amer) 77.0 Est GFR (Non-Af Amer) 66.4 BUN/Creatinine Ratio 17.3 (10-20) Glucose 275 H (70-99) mg/dl POC Glucose 199 H 210 H (70-99) mg/dl Calcium 8.1 L (8.5-10.1) mg/dl Magnesium (1.8-2.4) mg/dl 07/03/20 Range/Units 11:32 WBC (4.8-10.8) K/uL RBC (4.7-6.1) M/uL Hgb (14.0-18.0) g/dL Hct (42-52) % MCV (80-100) fL MCH (25-34) pg MCHC (32-36) g/dL RDW Std Deviation (36.4-46.3) fL RDW Coeff of Orquidea (11.5-14.5) % Plt Count (130-400) K/uL MPV (7.4-10.4) fL Sodium (136-145) mmol/L Potassium (3.5-5.1) mmol/L Chloride (98-107) mmol/L Carbon Dioxide (21-32) mmol/L Anion Gap (3-11) BUN (7-18) mg/dl Creatinine (0.6-1.4) mg/dl Est Cr Clr Drug Dosing ml/min Est GFR ( Amer) Est GFR (Non-Af Amer) BUN/Creatinine Ratio (10-20) Glucose (70-99) mg/dl POC Glucose 299 H (70-99) mg/dl Calcium (8.5-10.1) mg/dl Magnesium (1.8-2.4) mg/dl Diagnostic Findings Telemetry: NSR 70-90's bmp Medications Administered Current Inpatient Medications Acetaminophen (Acetaminophen 325 Mg Tab) 650 mg PO Q4H PRN PRN Reason: Pain or Fever Stop: 07/31/20 18:01 Last Admin: 07/03/20 21:29 Dose: 650 mg Documented by: Al Hydrox/Mg Hydrox/Simethicone (Maalox) 15 ml PO Q4H PRN PRN Reason: Dyspepsia Stop: 07/31/20 18:01 Aspirin (Ecotrin Ectab) 81 mg PO DAILY RAD[facility] Stop: 08/01/20 08:59 Last Admin: 07/04/20 08:19 Dose: 81 mg Documented by: Dextrose (Dextrose 50%) 25 - 50 ml IV UD PRN; Protocol PRN Reason: Hypoglycemia Protocol Stop: 07/31/20 20:26 Fluticasone Propionate (Flonase) 2 sprays GUSTABO DAILY PRN PRN Reason: Nasal Congestion Stop: 07/31/20 20:26 Glucagon (Glucagen) 1 mg SQ UD PRN; Protocol PRN Reason: Hypoglycemia Protocol Stop: 07/31/20 20:26 Glucose (Dex4 Glucose) 4 - 8 tabs PO UD PRN; Protocol PRN Reason: Hypoglycemia Protocol Stop: 07/31/20 20:26 Glucose (Glucose 40%) 15 - 30 gm PO UD PRN; Protocol PRN Reason: Hypoglycemia Protocol Stop: 07/31/20 20:26 Ceftriaxone Sodium 2,000 mg/ (Dextrose) 70 mls @ 100 mls/hr IV Q24H [facility]; Protocol Stop: 07/08/20 21:59 Last Infusion: 07/03/20 23:00 Dose: Infused Documented by: Heparin Sodium (Porcine) 7,500 (units/ Syringe) 0.75 mls @ 10 mls/min SQ Q8 [facility] Stop: 07/31/20 22:14 Last Admin: 07/04/20 05:33 Dose: 10 mls/min Documented by: Furosemide 80 mg/ Syringe 8 mls @ 4 mls/min IV BID17 [facility] Stop: 08/02/20 09:59 Last Admin: 07/04/20 08:19 Dose: 4 mls/min Documented by: Insulin Aspart (Insulin Aspart 100 Units/Ml 3 Ml Pen) [address] [facility]; Protocol Stop: 07/31/20 20:59 Last Admin: 07/04/20 08:23 Dose: 37 units Documented by: Insulin Glargine (Insulin Glargine Solostar 100 Units/Ml 3 Ml Pen) [address] [facility]; Protocol Stop: 08/01/20 20:59 Last Admin: 07/04/20 08:22 Dose: 60 units Documented by: Lactobacillus Acidophilus (Floranex) [address] [facility] Stop: 08/01/20 08:59 Last Admin: 07/04/20 08:20 Dose: 4 tab Documented by: Magnesium Hydroxide (Milk Of Magnesia) 30 ml PO Q12H PRN PRN Reason: Constipation Stop: 07/31/20 18:01 Menthol (Cough Drop (Sugar Free) Elijah 24 Elijah/1 Box) 1 elijah BUCCAL Q4H PRN PRN Reason: Sore Throat Stop: 08/01/20 19:29 Metolazone (Zaroxolyn) 2.5 mg PO TuThSa@0900 [facility] Stop: 08/02/20 08:59 Last Admin: 07/03/20 08:06 Dose: 2.5 mg Documented by: Miscellaneous (Carbohydrates For Hypoglycemia) 15 - 30 gm PO UD PRN PRN Reason: Hypoglycemia Protocol Stop: 07/31/20 20:26 Miscellaneous (Remove Nicoderm Patch) 1 ea N/A DAILY@0859 [facility] Stop: 08/03/20 08:58 Last Admin: 07/04/20 08:20 Dose: 1 ea Documented by: Miscellaneous Information (Consult Glycemic Management Pharmacy) 1 ea N/A UD PRN PRN Reason: Consult Stop: 07/31/20 21:25 Nicotine (Nicotine 14 Mg/24 Hr Patch) [address] [facility] Stop: 08/02/20 16:14 Last Admin: 07/04/20 08:22 Dose: Not Given Documented by: Oxycodone/Acetaminophen (Oxycodone/Acetaminophen 5mg/325mg Tab) 1 tab PO Q8 PRN PRN Reason: Pain Stop: 07/15/20 20:26 Last Admin: 07/02/20 21:50 Dose: 1 tab Documented by: Pantoprazole Sodium (Protonix) 40 mg PO QAM [facility] Stop: 08/01/20 08:59 Last Admin: 07/04/20 08:19 Dose: 40 mg Documented by: Polyethylene Glycol (Miralax Powder Packet) 17 gm PO DAILY PRN PRN Reason: Constipation Stop: 07/31/20 18:01 Potassium Chloride (Potassium Chloride 20 Meq Tabcr) 40 meq PO TID [facility] Stop: 08/03/20 13:59 Sennosides (Senokot) 17.2 mg PO DAILY PRN PRN Reason: Constipation Stop: 07/31/20 20:26 Sertraline HCl (Sertraline Hcl 100 Mg Tablet) 100 mg PO DAILY [facility] Stop: 08/02/20 08:59 Last Admin: 07/04/20 08:19 Dose: 100 mg Documented by: Spironolactone (Aldactone) 50 mg PO BID [facility] Stop: 07/31/20 20:59 Last Admin: 07/04/20 08:20 Dose: 50 mg Documented by: Torsemide (Torsemide 20 Mg Tab) 80 mg PO BID [facility] Stop: 08/01/20 08:59 Umeclidinium [place] (Incruse Ellipta) 1 puffs INH DAILY [facility] Stop: 08/01/20 08:59 Last Admin: 07/04/20 08:21 Dose: 1 puffs Documented by: Vitamin D (Vitamin D3) 2,000 units PO DAILY [facility] Stop: 08/01/20 08:59 Last Admin: 07/04/20 08:21 Dose: 2,000 units Documented by:
[2020-07-04] MEDS ORDERED: POTASSIUM CHLORIDE 20 MEQ TABCR PO ONE (11:00)
--- NOTE | 2020-07-04 11:56 | Pharmacy Report ---
Pharmacy Glycemic Short Note 2 - Date of Service July 04, 2020 - Glycemic Short BSG Results (Last 24 hours): 07/03/20 07/03/20 07/03/20 13:58 15:57 21:07 Glucose 275 H POC Glucose 210 H 199 H 07/04/20 07/04/20 07/04/20 05:48 07:24 11:13 Glucose 186 H POC Glucose 215 H 261 H OUTPATIENT ANTIDIABETIC REGIMEN: * Trulicity 1.5 mg SC weekly + Lantus 40 unit SC HS + Novolog 10 units SC AC + Metformin 2 gm PO Daily * A1c = 11% from 07/01/2020 ASSESSMENT: 07/04: * Patient received a total of 224 units of insulin yesterday * 110 units basal + 114 units bolus * BSGs ranged 199 - 299 mg/dL * Fasting BSG this AM is elevated at 215 mg/dL. Will increase basal insulin by 10-15% * Post-prandial BSGs elevated --> will tighten CF/CR. * Estimated TDD ~ 275 units/day 07/03: * Mr. Sanchez received a total of 195 units of insulin yesterday * 90 units basal + 105 units bolus * BSGs ranged 206-330 mg/dL - uncontrolled * Fasting BSG this AM was 251 mg/dL, uncontrolled. Will increase basal insulin per scale to represent a 10%, 15% or 20% increase depending on BSG. * Given hyperglycemia, tightened carb ratio this morning to match previous admission data. * Lunchtime BSG was 299 mg/dL. Will tighten dinner CF and CR further. 07/02: * 54 year old with diastolic CHF, bilateral lymphedema, foot pain, hyponatremia and hypokalemia. Type 2 diabetic with hyperglycemia on admission. * Pharmacy consulted for glycemic management. Known to glycemic service from other admissions, most recently 04/23/20 admission * Appears on last admission he was discharged on Lantus 40 units BID, however medication list on admission indicating only once daily. Will need to confirm home dosing. * BSG this AM elevated at 306 mg/dL - received 40 of basal last evening and 31 units of correctional insulin * Will plan to utilize similar parameters for insulin from last admission PLAN FOR INPATIENT GLYCEMIC CONTROL: * Hold outpatient oral diabetes medications * Basal insulin - increased * Lantus 60-65 units SQ BID per scale (see MAR for further details) * Bolus insulin - tightened CF & CR * NovoLog per scale ACHS or Q6hrs while NPO * Goal Range: Low 110 mg/dL - High 140 mg/dL * Correction Factor: 7 mg/dL/unit * Nutritional / Prandial insulin per carb ratio of 1 unit per 1.5 grams CHO consumed PLAN FOR DISCHARGE: * Patient with uncontrolled T2DM based on recent A1c of 8.6%. Per Annalisa JUNG, patient is extremely insulin resistant and has a poor PO diet at home. Also, he never increased his home dose of Lantus to 40 units BID after his last hospital discharge. Patient will likely require significant increases in home Lantus and Novolog doses prior to discharge. * Further recommendations to come.
--- NOTE | 2020-07-04 11:58 | Nephrology Progress Note ---
Date of Service July 04, 2020 Assessment & Plan (1) Hypokalemia: from diuresis. K was 2.7 8 AM and 2.9 that evening at 1700. magnesium acceptable. serum sodium about 135 when corrected for hyperglycemia--do not consider sodium his primary electrolyte issue>> on 07-03 though sodium 131 with better BG control and K now wnl -agree with just increased K dose to 40 mEq po tid (2) Electrolyte and fluid disorder: hyponatremia resolves to near normal when corrected for glucose though it is low end of normal -- at least it did through 07-02. now 130 on 07/03. -recheck bmp this afternoon -- monitor sodium and K -- ordered for 1400 -remains markedly volume overloaded but diuresing well and would continue current diuretic dosing, fluid and sodium limits, daily STANDING weights>> standing wt 07/03 215.5, down to 214.1 07/04. suspect he may be violating FR though since he should be down 4 kg in 24 hrs and is down 1.4 only. -continue to encourage conservative measures to manage edema - leg elevation, wrapping >> consider consult for unna boots?; he is generally resistant to trying these measures (3) Acute on chronic right-sided congestive heart failure: agree with diuretics per cardiology>>80 mg iv bid lasix currently and spironolactone 50 mg bid; if no improvement tomorrow in wts may consider increasing lasix dose Admission and Anticipated Discharge Date Admission Date: July 01, 2020 Subjective c/o severe back pain; states he feels he's not mobilizing much fluid; leg wraps planned for later Review of Systems Review of Systems: All systems reviewed & are unremarkable except as noted in HPI & below Physical Exam Constitutional: well developed, well nourished and + morbidly obese; no acute distress on RA Eyes: EOM intact bilaterally ENMT: Ears: no external ear abnormality Nose: no external nose abnormality Mouth: + dry oral mucous membranes Neck: no nuchal rigidity Respiratory: normal respiratory effort Auscultation: + diminished lung sounds (crackles resolved today) Cardiovascular: Rate/Rhythm: regular rate (distant HS) and regular rhythm Extremities: + edema (2-3+ indurated) Gastrointestinal (Abdomen): Inspection/Auscultation: normal bowel sounds Percussion/Palpation: abdomen soft; abdomen nontender Musculoskeletal: Extremities: strength 5/5 throughout Skin: no rashes, warm and dry Psychiatric: Orientation: alert and oriented x 3 Mood: + anxious mood Results & Data ([facility]) Vital Signs (Past 12 Hours) Vital Signs Temp Pulse Resp BP BP Pulse Ox 07/04/20 10:45 36.8 C 75 22 141/75 H 95 07/04/20 07:01 36.3 C L 69 20 165/51 H 90 07/04/20 03:06 36.6 C 85 23 107/76 94 Laboratory Results 07/04/20 05:48 07/04/20 05:48
[2020-07-04] MEDS: LIDOCAINE 5% 1 PATCH TD SCH (20:13)
[2020-07-04] MEDS: OXYCODONE/ACETAMINOPHEN 5mg/325mg TAB PO PRN (20:51)
[2020-07-04 20:58] LABS: BUN Creatinine Ratio 16.9 (10-20); Calcium 8.5 mg/dl (8.5-10.1); Creatinine Clr Calc Pharmacy 110.7 ml/min; Est GFR (African American) 63.2; Est GFR (Non-African American) 54.5; Potassium 3.5 mmol/L (3.5-5.1)
[2020-07-04] MEDS: cefTRIAXone SODIUM 2,000 MG in DEXTROSE 5% 50 ML IV SCH (22:02)
[2020-07-05] MEDS: HEPARIN SODIUM (PORCINE) 7,500 UNITS in SYRINGE 0 ML SQ SCH ×3 (06:16→21:55)
--- NOTE | 2020-07-05 07:13 | Hospitalist Progress Note ---
Date of Service July 05, 2020 Assessment & Plan (1) Acute diastolic congestive heart failure: Volume overload/acute on chronic diastolic heart failure/ right-sided HF Presented with shortness of breath increased weight. worsening of bilateral lower extremity swelling History of diastolic dysfunction Echo on 04/22/2020: Moderate concentric left ventricular hypertrophy. Ejection fraction 60-65% Grade 1 diastolic dysfunction. Patient was given IV Lasix in the ER, 40 mg IV twice daily, now increased to 80 mg IV BID Monitor in PCU/telemetry Cardiology consulted, appreciate their input Low-salt diet, fluid restriction 1500 mL a day Chronic bilateral lower extremity swelling/lymphedema: Presents with worsening of swelling in last few days Continue IV Lasix as outlined above Lower extremity Dopplers ordered to rule out DVT- negative LEFT FOOT PAIN : secondary to increased edema due to right-sided heart failure, and likely cellulitis xray - negative for any fractures Venous Doppler - no DVT, Bakers cyst on the left was recently started with PO keflex continue IV rocephin HYPONATREMIA : hard to assess intravascular vol status -given morbid obesity , body habitus clinically appears to be markedly vol overloaded cont IV lasix ordered for fluid restriction nephrology consulted, appreciate their input Hypokalemia: Potassium 2.7, possible secondary to home diuretics dose Patient denies of any nausea vomiting or diarrhea P.o. and IV potassium replacement done in ER Will continue to closely monitor and replete as needed Mag level within normal limit Type 2 diabetes: Presented with hyperglycemia, Very poorly controlled, current hemoglobin A1c 11% Pharmacy consulted for glycemic management Continue basal Lantus, added insulin sliding scale Blood sugar 341 in ER, no evidence of DKA with normal bicarb, normal beta hydroxybutyrate given 10 U of iv insulin in ER History of obesity hypoventilation syndrome/obstructive sleep apnea Continue BiPAP at night at home noncompliant with BiPAP Depression/ Anxiety Had SI comments while speaking w/ cardiology Psych consulted, Zoloft increased to 100 mg daily DVT prophylaxis: Moderate to high risk, subcu heparin CODE STATUS: Full code Disposition: Expected to be discharged home when medically stable Family medicine follow-up with Dr. Roy at [facility]. Admission and Anticipated Discharge Date Admission Date: July 01, 2020 Subjective Patient is currently sitting up in the chair, in no acute distress. Says that he was able to use BiPAP for 1 hour overnight. States that his left foot feels much better, does not have currently any pain there. However he says that his chronic back pain radiating to his legs has worsened since yesterday. Denies any fevers, chills, chest pain, increased shortness of breath, abdominal pain, nausea or vomiting. Review of Systems Review of Systems: All systems reviewed & are unremarkable except as noted in HPI & below Constitutional: no fever and no chills Respiratory: + dyspnea (improved); no cough Cardiovascular: + edema; no chest pain and no palpitations Gastrointestinal: no abdominal pain, no nausea and no vomiting Musculoskeletal: + back pain Physical Exam Physical Exam: Constitutional: WD/WN, vitals as above + morbidly obese male sitting up in the chair, in NAD Head: appears normocephalic Eyes: + anicteric sclerae, EOMI Respiratory: no cough Auscultation: + diminished lung sounds, mild bibasilar crackles, no wheezing noted Cardiovascular: Rate/Rhythm: regular rate and regular rhythm Extremities: + pedal edema and + edema severe bilateral lower ext edema, venous stasis changes noted Gastrointestinal (Abdomen): Percussion/Palpation: abdomen soft, nontender, obese, + bowel sounds Musculoskeletal: severe lower extremity swelling , lymphadenopathy , with chronic venous stasis changes noted pain and swelling with increased warmth on left dorsal foot, no open wound noted Neuro/ Psych: alert and oriented x3, answers questions appropriately, PERRL, EOMI, no face palsy, no dysarthria, moves extremities spontaneously, mood occasionally anxious, occasionally seems depressed Results & Data Results & Data ([facility]) Vital Signs (Past 12 Hours) Vital Signs Temp Pulse Resp BP BP Pulse Ox 07/05/20 06:58 36.3 C L 62 20 120/71 90 07/05/20 04:06 36.6 C 82 21 146/85 H 94 07/04/20 23:11 36.7 C 77 20 137/69 92 Laboratory Results 07/05/20 07/05/20 07/05/20 Range/Units 16:10 11:05 08:49 Sodium (136-145) mmol/L Potassium 3.2 L (3.5-5.1) mmol/L Chloride (98-107) mmol/L Carbon Dioxide (21-32) mmol/L Anion Gap (3-11) BUN (7-18) mg/dl Creatinine (0.6-1.4) mg/dl Est Cr Clr Drug Dosing ml/min Est GFR ( Amer) Est GFR (Non-Af Amer) BUN/Creatinine Ratio (10-20) Glucose (70-99) mg/dl POC Glucose 98 222 H (70-99) mg/dl Calcium (8.5-10.1) mg/dl Phosphorus (2.5-4.9) mg/dl Magnesium 2.2 (1.8-2.4) mg/dl 07/05/20 07/05/20 07/04/20 Range/Units 07:09 07:04 20:27 Sodium 136 135 L (136-145) mmol/L Potassium 3.5 D (3.5-5.1) mmol/L Chloride 96 L 98 (98-107) mmol/L Carbon Dioxide 33 H 29 (21-32) mmol/L Anion Gap 6.0 8.0 (3-11) BUN 22 H 25 H (7-18) mg/dl Creatinine 1.04 1.46 H D (0.6-1.4) mg/dl Est Cr Clr Drug Dosing 154.8 110.7 ml/min Est GFR ( Amer) 95.2 63.2 Est GFR (Non-Af Amer) 82.2 54.5 BUN/Creatinine Ratio 21.3 H 16.9 (10-20) Glucose 187 H 129 H (70-99) mg/dl POC Glucose 201 H (70-99) mg/dl Calcium 8.9 8.5 (8.5-10.1) mg/dl Phosphorus 3.3 (2.5-4.9) mg/dl Magnesium (1.8-2.4) mg/dl 07/04/20 Range/Units 20:22 Sodium (136-145) mmol/L Potassium (3.5-5.1) mmol/L Chloride (98-107) mmol/L Carbon Dioxide (21-32) mmol/L Anion Gap (3-11) BUN (7-18) mg/dl Creatinine (0.6-1.4) mg/dl Est Cr Clr Drug Dosing ml/min Est GFR ( Amer) Est GFR (Non-Af Amer) BUN/Creatinine Ratio (10-20) Glucose (70-99) mg/dl POC Glucose 127 H (70-99) mg/dl Calcium (8.5-10.1) mg/dl Phosphorus (2.5-4.9) mg/dl Magnesium (1.8-2.4) mg/dl Medications Administered Current Inpatient Medications Acetaminophen (Acetaminophen 325 Mg Tab) 650 mg PO Q4H PRN PRN Reason: Pain or Fever Stop: 07/31/20 18:01 Last Admin: 07/03/20 21:29 Dose: 650 mg Documented by: Al Hydrox/Mg Hydrox/Simethicone (Maalox) 15 ml PO Q4H PRN PRN Reason: Dyspepsia Stop: 07/31/20 18:01 Aspirin (Ecotrin Ectab) 81 mg PO DAILY RADHA Stop: 08/01/20 08:59 Last Admin: 07/05/20 08:37 Dose: 81 mg Documented by: Dextrose (Dextrose 50%) 25 - 50 ml IV UD PRN; Protocol PRN Reason: Hypoglycemia Protocol Stop: 07/31/20 20:26 Fluticasone Propionate (Flonase) 2 sprays GUSTABO DAILY PRN PRN Reason: Nasal Congestion Stop: 07/31/20 20:26 Glucagon (Glucagen) 1 mg SQ UD PRN; Protocol PRN Reason: Hypoglycemia Protocol Stop: 07/31/20 20:26 Glucose (Dex4 Glucose) 4 - 8 tabs PO UD PRN; Protocol PRN Reason: Hypoglycemia Protocol Stop: 07/31/20 20:26 Glucose (Glucose 40%) 15 - 30 gm PO UD PRN; Protocol PRN Reason: Hypoglycemia Protocol Stop: 07/31/20 20:26 Ceftriaxone Sodium 2,000 mg/ (Dextrose) 70 mls @ 100 mls/hr IV Q24H RADHA; Protocol Stop: 07/08/20 21:59 Last Infusion: 07/04/20 22:45 Dose: Infused Documented by: Heparin Sodium (Porcine) 7,500 (units/ Syringe) 0.75 mls @ 10 mls/min SQ Q8 RADHA Stop: 07/31/20 22:14 Last Admin: 07/05/20 13:51 Dose: 10 mls/min Documented by: Furosemide 80 mg/ Syringe 8 mls @ 4 mls/min IV BID17 RADHA Stop: 08/02/20 09:59 Last Admin: 07/05/20 17:11 Dose: 4 mls/min Documented by: Insulin Aspart (Insulin Aspart 100 Units/Ml 3 Ml Pen) 0 units SC ACHS [facility]; Protocol Stop: 07/31/20 20:59 Last Admin: 07/05/20 16:51 Dose: 21 units Documented by: Insulin Glargine (Insulin Glargine Solostar 100 Units/Ml 3 Ml Pen) 0 units SQ BID [facility]; Protocol Stop: 08/01/20 20:59 Last Admin: 07/05/20 08:34 Dose: 60 units Documented by: Lactobacillus Acidophilus (Floranex) 4 tab PO TID [facility] Stop: 08/01/20 08:59 Last Admin: 07/05/20 13:11 Dose: 4 tab Documented by: Lidocaine (Lidocaine 5% 1 Patch) 1 patch TD QAM [facility] Stop: 08/03/20 18:59 Last Admin: 07/05/20 08:34 Dose: Not Given Documented by: Magnesium Hydroxide (Milk Of Magnesia) 30 ml PO Q12H PRN PRN Reason: Constipation Stop: 07/31/20 18:01 Menthol (Cough Drop (Sugar Free) Vilma 24 Vilma/1 Box) 1 vilma BUCCAL Q4H PRN PRN Reason: Sore Throat Stop: 08/01/20 19:29 Metolazone (Zaroxolyn) 2.5 mg PO TuThSa@0900 [facility] Stop: 08/02/20 08:59 Last Admin: 07/05/20 08:35 Dose: 2.5 mg Documented by: Miscellaneous (Carbohydrates For Hypoglycemia) 15 - 30 gm PO UD PRN PRN Reason: Hypoglycemia Protocol Stop: 07/31/20 20:26 Miscellaneous (Remove Nicoderm Patch) 1 ea N/A DAILY@0859 [facility] Stop: 08/03/20 08:58 Last Admin: 07/05/20 08:33 Dose: 1 ea Documented by: Miscellaneous (Remove Lidoderm Patch) 1 ea N/A DAILY@2100 [facility] Stop: 08/03/20 22:59 Last Admin: 07/05/20 01:26 Dose: 1 ea Documented by: Miscellaneous Information (Consult Glycemic Management Pharmacy) 1 ea N/A UD PRN PRN Reason: Consult Stop: 07/31/20 21:25 Miscellaneous Information (Nursing To Pharmacy Communication) 1 ea N/A TODAY [facility] Stop: 08/04/20 18:59 Nicotine (Nicotine 14 Mg/24 Hr Patch) 14 mg TD QAM RADHA Stop: 08/02/20 16:14 Last Admin: 07/05/20 08:35 Dose: Not Given Documented by: Oxycodone/Acetaminophen (Oxycodone/Acetaminophen 5mg/325mg Tab) 1 tab PO Q8 PRN PRN Reason: Pain Stop: 07/15/20 20:26 Last Admin: 07/05/20 08:46 Dose: 1 tab Documented by: Pantoprazole Sodium (Protonix) 40 mg PO QAM RADHA Stop: 08/01/20 08:59 Last Admin: 07/05/20 08:37 Dose: 40 mg Documented by: Polyethylene Glycol (Miralax Powder Packet) 17 gm PO DAILY PRN PRN Reason: Constipation Stop: 07/31/20 18:01 Potassium Chloride (Potassium Chloride 20 Meq Tabcr) 40 meq PO TID RADHA Stop: 08/03/20 13:59 Last Admin: 07/05/20 13:11 Dose: 40 meq Documented by: Sennosides (Senokot) 17.2 mg PO DAILY PRN PRN Reason: Constipation Stop: 07/31/20 20:26 Sertraline HCl (Sertraline Hcl 100 Mg Tablet) 100 mg PO DAILY RADHA Stop: 08/02/20 08:59 Last Admin: 07/05/20 08:35 Dose: 100 mg Documented by: Spironolactone (Aldactone) 50 mg PO BID RADHA Stop: 07/31/20 20:59 Last Admin: 07/05/20 08:36 Dose: 50 mg Documented by: Torsemide (Torsemide 20 Mg Tab) 80 mg PO BID [facility] Stop: 08/01/20 08:59 Trolamine Salicylate (Trolamine Salicylate 10% Crm 255 Appln/85 Gm Tube) 1 appln EXT QID PRN PRN Reason: Pain Stop: 08/04/20 18:59 Umeclidinium [place] (Incruse Ellipta) 1 puffs INH DAILY RADHA Stop: 08/01/20 08:59 Last Admin: 07/05/20 08:38 Dose: 1 puffs Documented by: Vitamin D (Vitamin D3) 2,000 units PO DAILY RADHA Stop: 08/01/20 08:59 Last Admin: 07/05/20 08:37 Dose: 2,000 units Documented by:
[2020-07-05 08:15] LABS: BUN Creatinine Ratio 21.3 (10-20); Calcium 8.9 mg/dl (8.5-10.1); Creatinine Clr Calc Pharmacy 154.8 ml/min; Est GFR (African American) 95.2; Est GFR (Non-African American) 82.2; Phosphorus 3.3 mg/dl (2.5-4.9)
[2020-07-05] MEDS: INSULIN ASPART 100 UNITS/ML 3 ML PEN SC SCH ×4 (08:33→20:28)
[2020-07-05] MEDS: INSULIN GLARGINE SOLOSTAR 100 UNITS/ML 3 ML PEN SQ SCH ×2 (08:34→20:29)
[2020-07-05] MEDS: LIDOCAINE 5% 1 PATCH TD SCH (08:34)
[2020-07-05] MEDS: SERTRALINE HCL 100 MG TABLET PO SCH (08:35)
[2020-07-05] MEDS: NICOTINE 14 MG/24 HR PATCH TD SCH (08:35)
[2020-07-05] MEDS: FUROSEMIDE 80 MG in SYRINGE 0 ML IV SCH ×2 (08:35→17:11)
[2020-07-05] MEDS: metOLazone 2.5 MG TABLET PO SCH (08:35)
[2020-07-05] MEDS: SPIRONOLACTONE 25 MG TAB PO SCH ×2 (08:36→20:27)
[2020-07-05] MEDS: LACTOBACILLUS ACIDOPHILUS (FLORANEX) TAB PO SCH ×3 (08:36→20:27)
[2020-07-05] MEDS: ASPIRIN 81 MG ECTAB PO SCH (08:37)
[2020-07-05] MEDS: CHOLECALCIFEROL 1,000 UNITS 25 MCG TAB PO SCH (08:37)
[2020-07-05] MEDS: POTASSIUM CHLORIDE 20 MEQ TABCR PO SCH ×3 (08:37→20:28)
[2020-07-05] MEDS: PANTOprazole 40 MG TAB PO SCH (08:37)
[2020-07-05] MEDS: UMECLIDINIUM BROMIDE 62.5MCG/BLISTER 7 PUFFS/INHALER INH SCH (08:38)
[2020-07-05] MEDS: OXYCODONE/ACETAMINOPHEN 5mg/325mg TAB PO PRN (08:46)
[2020-07-05] MEDS ORDERED: TRAMADOL HCL 50 MG TABLET PO ONE (09:02)
[2020-07-05 09:32] LABS: Potassium 3.2 mmol/L (3.5-5.1)
[2020-07-05 09:33] LABS: Magnesium 2.2 mg/dl (1.8-2.4)
--- NOTE | 2020-07-05 11:33 | Cardiology Progress Note ---
Date of Service July 05, 2020 Assessment & Plan (1) Acute on chronic right-sided congestive heart failure: Multifactorial volume overload secondary to morbid obesity/hypoventilatory syndrome, non compliance with BIPAP/O2 therapy Continue furosemide 80 mg IV BID. Patient received dose of metolazone as well this morning MOnitor I+O's. BMP in AM (2) Hypokalemia: Supplement with oral potassium 40 TID. We will give an additional 40 mEq this morning continue spironolactone 50 mg BID Monitor (3) Pickwickian syndrome: We discussed his underlying obesity is playing a large role in his condition. He was previously referred to GI nutrition weight loss clinic for evaluation of bariatric surgery. He declined/refused and is still adamant about not proceeding with this option. (4) SIDRA treated with BiPAP: He is non compliant with BIPAP here at the hospital and at home, likely contributing to his volume overload and recurrent admissions. Notes tolerating in hospital has concerns regarding throat and tissue (5) Depression: Patient voices frustration regarding recurrent medical problems and recurrent admissions. Reports he "wants to go home and ". Psych consult recommended and assistance appreciated. Admission and Anticipated Discharge Date Admission Date: July 01, 2020 Subjective Patient was seen and examined, chart, medications, telemetry reviewed Patient continues to manifest diuresis. Was able to use CPAP/BiPAP last night Patient complains of chronic back and knee pain No shortness of breath or cough No fevers or chills. Physical Exam Constitutional: + morbidly obese Eyes: PERRL, conjunctivae normal, anicteric sclerae ENMT: external ear and nose normal, oropharynx normal Neck: + thick neck Respiratory: Auscultation: + diminished lung sounds Cardiovascular: Rate/Rhythm: regular rate and regular rhythm Heart Sounds: no murmur Vessels: no JVD and no carotid bruit Extremities: + edema (3+ with leg and abdominal edema) Gastrointestinal (Abdomen): normal bowel sounds, soft, nontender, no hepatosplenomegaly Massive panniculus Skin: Chronic stasis changes bilateral lower extremities Results & Data ([facility]) Vital Signs (Past 12 Hours) Vital Signs Temp Pulse Resp BP Pulse Ox 07/05/20 11:02 36.3 C L 68 18 138/84 91 07/05/20 06:58 36.3 C L 62 20 120/71 90 07/05/20 04:06 36.6 C 82 21 146/85 H 94 Laboratory Results Laboratory Results - last 24 hr 07/04/20 07/04/20 07/04/20 15:51 20:22 20:27 Sodium 135 L Potassium 3.5 D Chloride 98 Carbon Dioxide 29 Anion Gap 8.0 BUN 25 H Creatinine 1.46 H D Est Cr Clr Drug Dosing 110.7 Est GFR ( Amer) 63.2 Est GFR (Non-Af Amer) 54.5 BUN/Creatinine Ratio 16.9 Glucose 129 H POC Glucose 101 H 127 H Calcium 8.5 Phosphorus Magnesium 07/05/20 07/05/20 07/05/20 07:04 07:09 08:49 Sodium 136 Potassium 3.2 L Chloride 96 L Carbon Dioxide 33 H Anion Gap 6.0 BUN 22 H Creatinine 1.04 Est Cr Clr Drug Dosing 154.8 Est GFR ( Amer) 95.2 Est GFR (Non-Af Amer) 82.2 BUN/Creatinine Ratio 21.3 H Glucose 187 H POC Glucose 201 H Calcium 8.9 Phosphorus 3.3 Magnesium 2.2 07/05/20 11:05 Sodium Potassium Chloride Carbon Dioxide Anion Gap BUN Creatinine Est Cr Clr Drug Dosing Est GFR ( Amer) Est GFR (Non-Af Amer) BUN/Creatinine Ratio Glucose POC Glucose 222 H Calcium Phosphorus Magnesium
[2020-07-05] MEDS ORDERED: POTASSIUM CHLORIDE 20 MEQ TABCR PO STA (11:38)
[2020-07-05] MEDS ORDERED: TROLAMINE SALICYLATE 10% CRM 255 APPLN/85 GM TUBE EXT PRN (19:00)
[2020-07-05] MEDS ORDERED: Nursing to Pharmacy Communication SCH (19:00)
[2020-07-05] MEDS: cefTRIAXone SODIUM 2,000 MG in DEXTROSE 5% 50 ML IV SCH (21:56)
[2020-07-06] MEDS: HEPARIN SODIUM (PORCINE) 7,500 UNITS in SYRINGE 0 ML SQ SCH ×3 (06:24→22:27)
--- NOTE | 2020-07-06 07:31 | Hospitalist Progress Note ---
Date of Service July 06, 2020 Assessment & Plan (1) Acute diastolic congestive heart failure: Volume overload/acute on chronic diastolic heart failure/ right-sided HF Presented with shortness of breath increased weight. worsening of bilateral lower extremity swelling History of diastolic dysfunction Echo on 04/22/2020: Moderate concentric left ventricular hypertrophy. Ejection fraction 60-65% Grade 1 diastolic dysfunction. Patient was given IV Lasix in the ER, 40 mg IV twice daily, now increased to 80 mg IV BID Monitor in PCU/telemetry Cardiology consulted, appreciate their input Low-salt diet, fluid restriction 1500 mL a day Chronic bilateral lower extremity swelling/lymphedema: Presents with worsening of swelling in last few days Continue IV Lasix as outlined above Lower extremity Dopplers ordered to rule out DVT- negative LEFT FOOT PAIN : secondary to increased edema due to right-sided heart failure, and likely cellulitis xray - negative for any fractures Venous Doppler - no DVT, Bakers cyst on the left was recently started with PO keflex continue IV rocephin HYPONATREMIA : hard to assess intravascular vol status -given morbid obesity , body habitus clinically appears to be markedly vol overloaded cont IV lasix ordered for fluid restriction nephrology consulted, appreciate their input Hypokalemia: Potassium 2.7, possible secondary to home diuretics dose Patient denies of any nausea vomiting or diarrhea P.o. and IV potassium replacement done in ER Will continue to closely monitor and replete as needed Mag level within normal limit Type 2 diabetes: Presented with hyperglycemia, Very poorly controlled, current hemoglobin A1c 11% Pharmacy consulted for glycemic management Continue basal Lantus, added insulin sliding scale Blood sugar 341 in ER, no evidence of DKA with normal bicarb, normal beta hydroxybutyrate given 10 U of iv insulin in ER History of obesity hypoventilation syndrome/obstructive sleep apnea Continue BiPAP at night at home noncompliant with BiPAP Depression/ Anxiety Had SI comments while speaking w/ cardiology Psych consulted, Zoloft increased to 100 mg daily DVT prophylaxis: Moderate to high risk, subcu heparin CODE STATUS: Full code Disposition: Expected to be discharged home when medically stable Family medicine follow-up with Dr. Roy at [facility]. Admission and Anticipated Discharge Date Admission Date: July 01, 2020 Subjective Patient is sitting up in a chair, in no acute distress, falling asleep. States he used BiPAP about 3 hours last night, however per nursing staff he only used it for about 1 hour. Currently denies any fevers, chills, chest pain, shortness of breath, abdominal pain, nausea vomiting. Only complains about chronic back pain. States that he feels really tired. Review of Systems Review of Systems: All systems reviewed & are unremarkable except as noted in HPI & below Constitutional: no fever and no chills Respiratory: + dyspnea (improved); no cough Cardiovascular: + edema; no chest pain and no palpitations Musculoskeletal: + back pain Physical Exam Physical Exam: Constitutional: WD/WN, vitals as above + morbidly obese male sitting up in the chair, in NAD Head: appears normocephalic Eyes: + anicteric sclerae, EOMI Respiratory: no cough Auscultation: + diminished lung sounds, mild bibasilar crackles, no wheezing noted Cardiovascular: Rate/Rhythm: regular rate and regular rhythm Extremities: + pedal edema and + edema severe bilateral lower ext edema, venous stasis changes noted Gastrointestinal (Abdomen): Percussion/Palpation: abdomen soft, nontender, obese, + bowel sounds Musculoskeletal: severe lower extremity swelling , lymphadenopathy , with chronic venous stasis changes noted pain and swelling with increased warmth on left dorsal foot, no open wound noted Neuro/ Psych: alert and oriented x3, answers questions appropriately, PERRL, EOMI, no face palsy, no dysarthria, moves extremities spontaneously, mood occasionally anxious, occasionally seems depressed Results & Data Results & Data ([facility]) Vital Signs (Past 12 Hours) Vital Signs Temp Pulse Resp BP BP Pulse Ox 07/06/20 07:11 36.6 C 75 19 127/73 94 07/06/20 03:02 36.7 C 71 20 134/75 91 07/05/20 22:58 36.5 C 73 18 132/78 91 07/05/20 20:10 36.7 C 68 22 158/65 H 93 Laboratory Results 07/06/20 07/06/20 07/06/20 Range/Units 11:07 07:12 06:25 Sodium 139 (136-145) mmol/L Potassium 3.6 (3.5-5.1) mmol/L Chloride 101 (98-107) mmol/L Carbon Dioxide 34 H (21-32) mmol/L Anion Gap 4.0 (3-11) BUN 19 H (7-18) mg/dl Creatinine 0.96 (0.6-1.4) mg/dl Est Cr Clr Drug Dosing 165.8 ml/min Est GFR ( Amer) 104.9 Est GFR (Non-Af Amer) 90.5 BUN/Creatinine Ratio 19.9 (10-20) Glucose 148 H (70-99) mg/dl POC Glucose 172 H 167 H (70-99) mg/dl Calcium 8.3 L (8.5-10.1) mg/dl Magnesium 2.1 (1.8-2.4) mg/dl 07/05/20 07/05/20 Range/Units 20:19 16:10 Sodium (136-145) mmol/L Potassium (3.5-5.1) mmol/L Chloride (98-107) mmol/L Carbon Dioxide (21-32) mmol/L Anion Gap (3-11) BUN (7-18) mg/dl Creatinine (0.6-1.4) mg/dl Est Cr Clr Drug Dosing ml/min Est GFR ( Amer) Est GFR (Non-Af Amer) BUN/Creatinine Ratio (10-20) Glucose (70-99) mg/dl POC Glucose 98 98 (70-99) mg/dl Calcium (8.5-10.1) mg/dl Magnesium (1.8-2.4) mg/dl Medications Administered Current Inpatient Medications Acetaminophen (Acetaminophen 325 Mg Tab) 650 mg PO Q4H PRN PRN Reason: Pain or Fever Stop: 07/31/20 18:01 Last Admin: 07/03/20 21:29 Dose: 650 mg Documented by: Al Hydrox/Mg Hydrox/Simethicone (Maalox) 15 ml PO Q4H PRN PRN Reason: Dyspepsia Stop: 07/31/20 18:01 Aspirin (Ecotrin Ectab) 81 mg PO DAILY RADHA Stop: 08/01/20 08:59 Last Admin: 07/05/20 08:37 Dose: 81 mg Documented by: Dextrose (Dextrose 50%) 25 - 50 ml IV UD PRN; Protocol PRN Reason: Hypoglycemia Protocol Stop: 07/31/20 20:26 Fluticasone Propionate (Flonase) 2 sprays GUSTABO DAILY PRN PRN Reason: Nasal Congestion Stop: 07/31/20 20:26 Glucagon (Glucagen) 1 mg SQ UD PRN; Protocol PRN Reason: Hypoglycemia Protocol Stop: 07/31/20 20:26 Glucose (Dex4 Glucose) 4 - 8 tabs PO UD PRN; Protocol PRN Reason: Hypoglycemia Protocol Stop: 07/31/20 20:26 Glucose (Glucose 40%) 15 - 30 gm PO UD PRN; Protocol PRN Reason: Hypoglycemia Protocol Stop: 07/31/20 20:26 Ceftriaxone Sodium 2,000 mg/ (Dextrose) 70 mls @ 100 mls/hr IV Q24H [facility]; Protocol Stop: 07/08/20 21:59 Last Infusion: 07/06/20 00:05 Dose: Infused Documented by: Heparin Sodium (Porcine) 7,500 (units/ Syringe) 0.75 mls @ 10 mls/min SQ Q8 [facility] Stop: 07/31/20 22:14 Last Admin: 07/06/20 06:24 Dose: 10 mls/min Documented by: Furosemide 80 mg/ Syringe 8 mls @ 4 mls/min IV BID17 [facility] Stop: 08/02/20 09:59 Last Admin: 07/05/20 17:11 Dose: 4 mls/min Documented by: Insulin Aspart (Insulin Aspart 100 Units/Ml 3 Ml Pen) 0 units SC ACHS [facility]; Protocol Stop: 07/31/20 20:59 Last Admin: 07/05/20 20:28 Dose: Not Given Documented by: Insulin Glargine (Insulin Glargine Solostar 100 Units/Ml 3 Ml Pen) 0 units SQ BID [facility]; Protocol Stop: 08/01/20 20:59 Last Admin: 07/05/20 20:29 Dose: 60 units Documented by: Lactobacillus Acidophilus (Floranex) 4 tab PO TID [facility] Stop: 08/01/20 08:59 Last Admin: 07/05/20 20:27 Dose: 4 tab Documented by: Lidocaine (Lidocaine 5% 1 Patch) 1 patch TD QAM [facility] Stop: 08/03/20 18:59 Last Admin: 07/05/20 08:34 Dose: Not Given Documented by: Magnesium Hydroxide (Milk Of Magnesia) 30 ml PO Q12H PRN PRN Reason: Constipation Stop: 07/31/20 18:01 Menthol (Cough Drop (Sugar Free) Vilma 24 Vilma/1 Box) 1 vilma BUCCAL Q4H PRN PRN Reason: Sore Throat Stop: 08/01/20 19:29 Metolazone (Zaroxolyn) 2.5 mg PO TuThSa@0900 [facility] Stop: 08/02/20 08:59 Last Admin: 07/05/20 08:35 Dose: 2.5 mg Documented by: Miscellaneous (Carbohydrates For Hypoglycemia) 15 - 30 gm PO UD PRN PRN Reason: Hypoglycemia Protocol Stop: 07/31/20 20:26 Miscellaneous (Remove Nicoderm Patch) 1 ea N/A DAILY@0859 [facility] Stop: 08/03/20 08:58 Last Admin: 07/05/20 08:33 Dose: 1 ea Documented by: Miscellaneous (Remove Lidoderm Patch) 1 ea N/A DAILY@2100 [facility] Stop: 08/03/20 22:59 Last Admin: 07/05/20 20:13 Dose: Not Given Documented by: Miscellaneous Information (Consult Glycemic Management Pharmacy) 1 ea N/A UD PRN PRN Reason: Consult Stop: 07/31/20 21:25 Nicotine (Nicotine 14 Mg/24 Hr Patch) [facility] [place]: 08/02/20 16:14 Last Admin: 07/05/20 08:35 Dose: Not Given Documented by: Oxycodone/Acetaminophen (Oxycodone/Acetaminophen 5mg/325mg Tab) 1 tab PO Q8 PRN PRN Reason: Pain Stop: 07/15/20 20:26 Last Admin: 07/05/20 08:46 Dose: 1 tab Documented by: Pantoprazole Sodium (Protonix) 40 mg PO QAM [facility] Stop: 08/01/20 08:59 Last Admin: 07/05/20 08:37 Dose: 40 mg Documented by: Polyethylene Glycol (Miralax Powder Packet) 17 gm PO DAILY PRN PRN Reason: Constipation Stop: 07/31/20 18:01 Potassium Chloride (Potassium Chloride 20 Meq Tabcr) 40 meq PO TID [facility] Stop: 08/03/20 13:59 Last Admin: 07/05/20 20:28 Dose: 40 meq Documented by: Sennosides (Senokot) 17.2 mg PO DAILY PRN PRN Reason: Constipation Stop: 07/31/20 20:26 Sertraline HCl (Sertraline Hcl 100 Mg Tablet) 100 mg PO DAILY [facility] Stop: 08/02/20 08:59 Last Admin: 07/05/20 08:35 Dose: 100 mg Documented by: Spironolactone (Aldactone) 50 mg PO BID RADHA Stop: 07/31/20 20:59 Last Admin: 07/05/20 20:27 Dose: 50 mg Documented by: Torsemide (Torsemide 20 Mg Tab) 80 mg PO BID RADHA Stop: 08/01/20 08:59 Trolamine Salicylate (Trolamine Salicylate 10% Crm 255 Appln/85 Gm Tube) 1 appln EXT QID PRN PRN Reason: Pain Stop: 08/04/20 18:59 Last Admin: 07/05/20 19:29 Dose: 1 appln Documented by: Umeclidinium Arminto (Incruse Ellipta) 1 puffs INH DAILY RADHA Stop: 08/01/20 08:59 Last Admin: 07/05/20 08:38 Dose: 1 puffs Documented by: Vitamin D (Vitamin D3) 2,000 units PO DAILY RADHA Stop: 08/01/20 08:59 Last Admin: 07/05/20 08:37 Dose: 2,000 units Documented by:
[2020-07-06 07:35] LABS: BUN Creatinine Ratio 19.9 (10-20); Calcium 8.3 mg/dl (8.5-10.1); Creatinine Clr Calc Pharmacy 165.8 ml/min; Est GFR (African American) 104.9; Est GFR (Non-African American) 90.5; Magnesium 2.1 mg/dl (1.8-2.4); Potassium 3.6 mmol/L (3.5-5.1)
[2020-07-06] MEDS: INSULIN GLARGINE SOLOSTAR 100 UNITS/ML 3 ML PEN SQ SCH ×2 (08:18→20:53)
[2020-07-06] MEDS: POTASSIUM CHLORIDE 20 MEQ TABCR PO SCH ×3 (08:20→20:53)
[2020-07-06] MEDS: SPIRONOLACTONE 25 MG TAB PO SCH ×2 (08:20→20:53)
[2020-07-06] MEDS: INSULIN ASPART 100 UNITS/ML 3 ML PEN SC SCH ×4 (08:20→20:55)
[2020-07-06] MEDS: LIDOCAINE 5% 1 PATCH TD SCH (08:21)
[2020-07-06] MEDS: FUROSEMIDE 80 MG in SYRINGE 0 ML IV SCH ×2 (08:21→17:23)
[2020-07-06] MEDS: NICOTINE 14 MG/24 HR PATCH TD SCH (08:21)
[2020-07-06] MEDS: SERTRALINE HCL 100 MG TABLET PO SCH (08:21)
[2020-07-06] MEDS: PANTOprazole 40 MG TAB PO SCH (08:21)
[2020-07-06] MEDS: CHOLECALCIFEROL 1,000 UNITS 25 MCG TAB PO SCH (08:22)
[2020-07-06] MEDS: LACTOBACILLUS ACIDOPHILUS (FLORANEX) TAB PO SCH ×3 (08:22→20:53)
[2020-07-06] MEDS: ASPIRIN 81 MG ECTAB PO SCH (08:22)
[2020-07-06] MEDS: UMECLIDINIUM BROMIDE 62.5MCG/BLISTER 7 PUFFS/INHALER INH SCH (08:23)
--- NOTE | 2020-07-06 11:17 | Cardiology Progress Note ---
Date of Service July 06, 2020 Assessment & Plan (1) Acute on chronic right-sided congestive heart failure: Multifactorial volume overload secondary to morbid obesity/hypoventilatory syndrome, non compliance with BIPAP/O2 therapy Continue furosemide 80 mg IV BID. Now beginning to respond to diuretics with brisk diuresis overnight Continue to encourage use of CPAP/BiPAP (2) Hypokalemia: Supplement with oral potassium 40 TID. We will give an additional 40 mEq this morning continue spironolactone 50 mg BID Monitor (3) Pickwickian syndrome: We discussed his underlying obesity is playing a large role in his condition. He was previously referred to [facility] clinic for evaluation of bariatric surgery. He declined/refused and is still adamant about not proceeding with this option. (4) SIDRA treated with BiPAP: (5) Depression: Patient voices frustration regarding recurrent medical problems and recurrent admissions. Reports he "wants to go home and ". Psych consult recommended and assistance appreciated. Admission and Anticipated Discharge Date Admission Date: July 01, 2020 Subjective Patient seen and examined, chart, telemetry reviewed Patient had brisk diuresis yesterday now clinically feeling improved. Weight down 5 kg. Sitting out of bed in chair this a.m. Used CPAP last night Physical Exam Constitutional: + morbidly obese Eyes: PERRL, conjunctivae normal, anicteric sclerae ENMT: external ear and nose normal, oropharynx normal Neck: + thick neck Respiratory: Auscultation: + diminished lung sounds Cardiovascular: Rate/Rhythm: regular rate and regular rhythm Heart Sounds: no murmur Vessels: no JVD and no carotid bruit Extremities: + edema (Persistent lower extremity abdominal edema though improved) Gastrointestinal (Abdomen): normal bowel sounds, soft, nontender, no hepatosplenomegaly Results & Data ([facility]) Vital Signs (Past 12 Hours) Vital Signs Temp Pulse Pulse Resp BP Pulse Ox 07/06/20 11:05 36.6 C 61 20 154/80 H 95 07/06/20 08:00 71 07/06/20 07:11 36.6 C 75 19 127/73 94 07/06/20 03:02 36.7 C 71 20 134/75 91 Laboratory Results Laboratory Results - last 24 hr 07/05/20 07/05/20 07/06/20 16:10 20:19 06:25 Sodium 139 Potassium 3.6 Chloride 101 Carbon Dioxide 34 H Anion Gap 4.0 BUN 19 H Creatinine 0.96 Est Cr Clr Drug Dosing 165.8 Est GFR ( Amer) 104.9 Est GFR (Non-Af Amer) 90.5 BUN/Creatinine Ratio 19.9 Glucose 148 H POC Glucose 98 98 Calcium 8.3 L Magnesium 2.1 07/06/20 07/06/20 07:12 11:07 Sodium Potassium Chloride Carbon Dioxide Anion Gap BUN Creatinine Est Cr Clr Drug Dosing Est GFR ( Amer) Est GFR (Non-Af Amer) BUN/Creatinine Ratio Glucose POC Glucose 167 H 172 H Calcium Magnesium
--- NOTE | 2020-07-06 14:17 | Pharmacy Report ---
Pharmacy Glycemic Short Note 2 - Date of Service July 06, 2020 - Glycemic Short BSG Results (Last 24 hours): 07/05/20 07/05/20 07/06/20 16:10 20:19 06:25 Glucose 148 H POC Glucose 98 98 07/06/20 07/06/20 07:12 11:07 Glucose POC Glucose 167 H 172 H OUTPATIENT ANTIDIABETIC REGIMEN: * Trulicity 1.5 mg SC weekly + Lantus 40 unit SC HS + Novolog 10 units SC AC + Metformin 2 gm PO Daily * A1c = 11% from 07/01/2020 ASSESSMENT: 07/06 * Patient received total of 238 units of insulin yesterday, of which 120 were basal insulin * Fasting BSG this AM improving 167 mg/dL - continue with scale for Lantus * BSGs tend to drop significantly from lunch to dinner, plan to loosen CR with lunch check. Will need to tighten back in AM PLAN FOR INPATIENT GLYCEMIC CONTROL: * Hold outpatient oral diabetes medications * Basal insulin * Lantus 60-65 units SQ BID per scale (see MAR for further details) * Bolus insulin * NovoLog per scale ACHS or Q6hrs while NPO * Goal Range: Low 110 mg/dL - High 140 mg/dL * Correction Factor: 7 mg/dL/unit * Nutritional / Prandial insulin per carb ratio of 1 unit per 2.5 grams CHO consumed
[2020-07-06] MEDS: cefTRIAXone SODIUM 2,000 MG in DEXTROSE 5% 50 ML IV SCH (22:27)
[2020-07-07] MEDS: HEPARIN SODIUM (PORCINE) 7,500 UNITS in SYRINGE 0 ML SQ SCH ×3 (06:14→21:23)
[2020-07-07 07:43] LABS: Hematocrit (blood only) 40.7 % (42-52); Hemoglobin 13.3 g/dL (14.0-18.0); Mean Corpuscular Hemoglobin 30.6 pg (25-34); Mean Corpuscular Hgb Conc 32.7 g/dL (32-36); Mean Corpuscular Volume 93.8 fL (80-100); Mean Platelet Volume 10.6 fL (7.4-10.4); Platelet Count 204 K/uL (130-400); RDW Coefficient of Variation 16.3 % (11.5-14.5); Red Blood Count 4.34 M/uL (4.7-6.1); White Blood Count 5.31 K/uL (4.8-10.8)
[2020-07-07 08:05] LABS: BUN Creatinine Ratio 16.8 (10-20); Calcium 8.7 mg/dl (8.5-10.1); Creatinine Clr Calc Pharmacy 156.5 ml/min; Est GFR (African American) 98.7; Est GFR (Non-African American) 85.1; Potassium 3.9 mmol/L (3.5-5.1)
[2020-07-07] MEDS: INSULIN ASPART 100 UNITS/ML 3 ML PEN SC SCH ×4 (08:06→21:22)
[2020-07-07] MEDS: FUROSEMIDE 80 MG in SYRINGE 0 ML IV SCH ×2 (08:07→17:15)
[2020-07-07] MEDS: PANTOprazole 40 MG TAB PO SCH (08:07)
[2020-07-07] MEDS: SPIRONOLACTONE 25 MG TAB PO SCH ×2 (08:07→20:35)
[2020-07-07] MEDS: NICOTINE 14 MG/24 HR PATCH TD SCH (08:07)
[2020-07-07] MEDS: INSULIN GLARGINE SOLOSTAR 100 UNITS/ML 3 ML PEN SQ SCH ×2 (08:08→20:37)
[2020-07-07] MEDS: POTASSIUM CHLORIDE 20 MEQ TABCR PO SCH ×3 (08:08→20:36)
[2020-07-07] MEDS: LACTOBACILLUS ACIDOPHILUS (FLORANEX) TAB PO SCH ×3 (08:09→20:35)
[2020-07-07] MEDS: UMECLIDINIUM BROMIDE 62.5MCG/BLISTER 7 PUFFS/INHALER INH SCH (08:09)
[2020-07-07] MEDS: LIDOCAINE 5% 1 PATCH TD SCH (08:10)
[2020-07-07] MEDS: SERTRALINE HCL 100 MG TABLET PO SCH (08:10)
[2020-07-07] MEDS: ASPIRIN 81 MG ECTAB PO SCH (08:10)
[2020-07-07] MEDS: CHOLECALCIFEROL 1,000 UNITS 25 MCG TAB PO SCH (08:11)
--- NOTE | 2020-07-07 08:29 | Hospitalist Progress Note ---
Date of Service July 07, 2020 Assessment & Plan (1) Acute diastolic congestive heart failure: Volume overload/acute on chronic diastolic heart failure/ right-sided HF Presented with shortness of breath increased weight. worsening of bilateral lower extremity swelling History of diastolic dysfunction Echo on 04/22/2020: Moderate concentric left ventricular hypertrophy. Ejection fraction 60-65% Grade 1 diastolic dysfunction. Patient was given IV Lasix in the ER, 40 mg IV twice daily, then increased to 80 mg IV BID, and continued Monitor in PCU/telemetry Cardiology consulted, appreciate their input Low-salt diet, fluid restriction 1500 mL a day Chronic bilateral lower extremity swelling/lymphedema: Presents with worsening of swelling in last few days Continue IV Lasix as outlined above Lower extremity Dopplers ordered to rule out DVT- negative LEFT FOOT PAIN : secondary to increased edema due to right-sided heart failure, and likely cellulitis xray - negative for any fractures Venous Doppler - no DVT, Bakers cyst on the left was recently started with PO keflex continue IV rocephin HYPONATREMIA : hard to assess intravascular vol status -given morbid obesity , body habitus clinically appears to be markedly vol overloaded cont IV lasix ordered for fluid restriction nephrology consulted, appreciate their input Hypokalemia: Potassium 2.7, possible secondary to home diuretics dose Patient denies of any nausea vomiting or diarrhea P.o. and IV potassium replacement done in ER Will continue to closely monitor and replete as needed Mag level within normal limit Type 2 diabetes: Presented with hyperglycemia, Very poorly controlled, current hemoglobin A1c 11% Pharmacy consulted for glycemic management Continue basal Lantus, added insulin sliding scale Blood sugar 341 in ER, no evidence of DKA with normal bicarb, normal beta hydroxybutyrate given 10 U of iv insulin in ER History of obesity hypoventilation syndrome/obstructive sleep apnea Continue BiPAP at night at home noncompliant with BiPAP Depression/ Anxiety Had SI comments while speaking w/ cardiology Psych consulted, Zoloft increased to 100 mg daily DVT prophylaxis: Moderate to high risk, subcu heparin CODE STATUS: Full code Disposition: Expected to be discharged home when medically stable Family medicine follow-up with Dr. Roy at [facility]. Admission and Anticipated Discharge Date Admission Date: July 01, 2020 Subjective No acute events overnight. Patient is lying in bed, in no acute distress. Continues to diurese well, weight is down 8 kg remains 6 to 8 kg above dry weight. No chest pains or worsening shortness of breath. Was able to use BiPAP for about 2-3 hrs overnight. Review of Systems Review of Systems: All systems reviewed & are unremarkable except as noted in HPI & below Constitutional: no fever and no chills Respiratory: + dyspnea (improved); no cough Cardiovascular: + edema; no chest pain and no palpitations Gastrointestinal: no abdominal pain, no nausea and no vomiting Musculoskeletal: + back pain Physical Exam Physical Exam: Constitutional: WD/WN, vitals as above + morbidly obese male laying in bed, in NAD Head: appears normocephalic Eyes: + anicteric sclerae, EOMI Respiratory: no cough Auscultation: + diminished lung sounds, mild bi basilar crackles, no wheezing noted Cardiovascular: Rate/Rhythm: regular rate and regular rhythm Extremities: + pedal edema and + edema severe bilateral lower ext edema, venous stasis changes noted Gastrointestinal (Abdomen): Percussion/Palpation: abdomen soft, nontender, obese, + bowel sounds Musculoskeletal: severe lower extremity swelling , lymphadenopathy , with chronic venous stasis changes noted pain and swelling with increased warmth on left dorsal foot (much improved), no open wound noted Neuro/ Psych: alert and oriented x3, answers questions appropriately, PERRL, EOMI, no face palsy, no dysarthria, moves extremities spontaneously, mood occasionally anxious, occasionally seems depressed Results & Data Results & Data ([facility]) Vital Signs (Past 12 Hours) Vital Signs Temp Pulse Pulse Resp BP Pulse Ox 07/07/20 07:23 62 07/07/20 07:22 36.4 C L 65 20 127/75 91 07/07/20 04:00 36.5 C 71 20 107/60 95 07/07/20 00:00 73 07/06/20 23:00 36.7 C 82 20 113/63 95 Laboratory Results 07/07/20 07/07/20 07/07/20 Range/Units 07:33 07:17 07:17 WBC 5.31 (4.8-10.8) K/uL RBC 4.34 L (4.7-6.1) M/uL Hgb 13.3 L (14.0-18.0) g/dL Hct 40.7 L (42-52) % MCV 93.8 (80-100) fL MCH 30.6 (25-34) pg MCHC 32.7 (32-36) g/dL RDW Std Deviation 55.0 H (36.4-46.3) fL RDW Coeff of [place] 16.3 H (11.5-14.5) % Plt Count 204 (130-400) K/uL MPV 10.6 H (7.4-10.4) fL Sodium 139 (136-145) mmol/L Potassium 3.9 (3.5-5.1) mmol/L Chloride 104 (98-107) mmol/L Carbon Dioxide 30 (21-32) mmol/L Anion Gap 5.0 (3-11) BUN 17 (7-18) mg/dl Creatinine 1.01 (0.6-1.4) mg/dl Est Cr Clr Drug Dosing 156.5 ml/min Est GFR ( Amer) 98.7 Est GFR (Non-Af Amer) 85.1 BUN/Creatinine Ratio 16.8 (10-20) Glucose 116 H (70-99) mg/dl POC Glucose 125 H (70-99) mg/dl Calcium 8.7 (8.5-10.1) mg/dl 07/06/20 07/06/20 07/06/20 Range/Units 20:38 16:36 11:07 WBC (4.8-10.8) K/uL RBC (4.7-6.1) M/uL Hgb (14.0-18.0) g/dL Hct (42-52) % MCV (80-100) fL MCH (25-34) pg MCHC (32-36) g/dL RDW Std Deviation (36.4-46.3) fL RDW Coeff of [place] (11.5-14.5) % Plt Count (130-400) K/uL MPV (7.4-10.4) fL Sodium (136-145) mmol/L Potassium (3.5-5.1) mmol/L Chloride (98-107) mmol/L Carbon Dioxide (21-32) mmol/L Anion Gap (3-11) BUN (7-18) mg/dl Creatinine (0.6-1.4) mg/dl Est Cr Clr Drug Dosing ml/min Est GFR ( Amer) Est GFR (Non-Af Amer) BUN/Creatinine Ratio (10-20) Glucose (70-99) mg/dl POC Glucose 141 H 95 172 H (70-99) mg/dl Calcium (8.5-10.1) mg/dl Medications Administered Current Inpatient Medications Acetaminophen (Acetaminophen 325 Mg Tab) 650 mg PO Q4H PRN PRN Reason: Pain or Fever Stop: 07/31/20 18:01 Last Admin: 07/03/20 21:29 Dose: 650 mg Documented by: Al Hydrox/Mg Hydrox/Simethicone (Maalox) 15 ml PO Q4H PRN PRN Reason: Dyspepsia Stop: 07/31/20 18:01 Aspirin (Ecotrin Ectab) 81 mg PO DAILY RADHA Stop: 08/01/20 08:59 Last Admin: 07/07/20 08:10 Dose: 81 mg Documented by: Dextrose (Dextrose 50%) 25 - 50 ml IV UD PRN; Protocol PRN Reason: Hypoglycemia Protocol Stop: 07/31/20 20:26 Fluticasone Propionate (Flonase) 2 sprays GUSTABO DAILY PRN PRN Reason: Nasal Congestion Stop: 07/31/20 20:26 Glucagon (Glucagen) 1 mg SQ UD PRN; Protocol PRN Reason: Hypoglycemia Protocol Stop: 07/31/20 20:26 Glucose (Dex4 Glucose) 4 - 8 tabs PO UD PRN; Protocol PRN Reason: Hypoglycemia Protocol Stop: 07/31/20 20:26 Glucose (Glucose 40%) 15 - 30 gm PO UD PRN; Protocol PRN Reason: Hypoglycemia Protocol Stop: 07/31/20 20:26 Ceftriaxone Sodium 2,000 mg/ (Dextrose) 70 mls @ 100 mls/hr IV Q24H RADHA; Protocol Stop: 07/08/20 21:59 Last Infusion: 07/06/20 23:14 Dose: Infused Documented by: Heparin Sodium (Porcine) 7,500 (units/ Syringe) 0.75 mls @ 10 mls/min SQ Q8 RADHA Stop: 07/31/20 22:14 Last Admin: 07/07/20 06:14 Dose: 10 mls/min Documented by: Furosemide 80 mg/ Syringe 8 mls @ 4 mls/min IV BID17 RADHA Stop: 08/02/20 09:59 Last Admin: 07/07/20 08:07 Dose: 4 mls/min Documented by: Insulin Aspart (Insulin Aspart 100 Units/Ml 3 Ml Pen) 0 units SC ACHS [facility]; Protocol Stop: 08/06/20 07:29 Last Admin: 07/07/20 08:06 Dose: 27 units Documented by: Insulin Glargine (Insulin Glargine Solostar 100 Units/Ml 3 Ml Pen) 0 units SQ BID [facility]; Protocol Stop: 08/01/20 20:59 Last Admin: 07/07/20 08:08 Dose: 60 units Documented by: Lactobacillus Acidophilus (Floranex) 4 tab PO TID [facility] Stop: 08/01/20 08:59 Last Admin: 07/07/20 08:09 Dose: 4 tab Documented by: Lidocaine (Lidocaine 5% 1 Patch) 1 patch TD QAM [facility] Stop: 08/03/20 18:59 Last Admin: 07/07/20 08:10 Dose: 1 patch Documented by: Magnesium Hydroxide (Milk Of Magnesia) 30 ml PO Q12H PRN PRN Reason: Constipation Stop: 07/31/20 18:01 Menthol (Cough Drop (Sugar Free) Elijah 24 Elijah/1 Box) 1 elijah BUCCAL Q4H PRN PRN Reason: Sore Throat Stop: 08/01/20 19:29 Metolazone (Zaroxolyn) 2.5 mg PO TuThSa@0900 [facility] Stop: 08/02/20 08:59 Last Admin: 07/05/20 08:35 Dose: 2.5 mg Documented by: Miscellaneous (Carbohydrates For Hypoglycemia) 15 - 30 gm PO UD PRN PRN Reason: Hypoglycemia Protocol Stop: 07/31/20 20:26 Miscellaneous (Remove Nicoderm Patch) 1 ea N/A DAILY@0859 [facility] Stop: 08/03/20 08:58 Last Admin: 07/07/20 08:06 Dose: Not Given Documented by: Miscellaneous (Remove Lidoderm Patch) 1 ea N/A DAILY@2100 [facility] Stop: 08/03/20 22:59 Last Admin: 07/06/20 21:18 Dose: Not Given Documented by: Miscellaneous Information (Consult Glycemic Management Pharmacy) 1 ea N/A UD PRN PRN Reason: Consult Stop: 07/31/20 21:25 Nicotine (Nicotine 14 Mg/24 Hr Patch) 14 mg TD QAM [facility] Stop: 08/02/20 16:14 Last Admin: 07/07/20 08:07 Dose: Not Given Documented by: Oxycodone/Acetaminophen (Oxycodone/Acetaminophen 5mg/325mg Tab) 1 tab PO Q8 PRN PRN Reason: Pain Stop: 07/15/20 20:26 Last Admin: 07/05/20 08:46 Dose: 1 tab Documented by: Pantoprazole Sodium (Protonix) 40 mg PO QAM RADHA Stop: 08/01/20 08:59 Last Admin: 07/07/20 08:07 Dose: 40 mg Documented by: Polyethylene Glycol (Miralax Powder Packet) 17 gm PO DAILY PRN PRN Reason: Constipation Stop: 07/31/20 18:01 Potassium Chloride (Potassium Chloride 20 Meq Tabcr) 40 meq PO TID RADHA Stop: 08/03/20 13:59 Last Admin: 07/07/20 08:08 Dose: 40 meq Documented by: Sennosides (Senokot) 17.2 mg PO DAILY PRN PRN Reason: Constipation Stop: 07/31/20 20:26 Sertraline HCl (Sertraline Hcl 100 Mg Tablet) 100 mg PO DAILY RADHA Stop: 08/02/20 08:59 Last Admin: 07/07/20 08:10 Dose: 100 mg Documented by: Spironolactone (Aldactone) 50 mg PO BID [facility] Stop: 07/31/20 20:59 Last Admin: 07/07/20 08:07 Dose: 50 mg Documented by: Torsemide (Torsemide 20 Mg Tab) 80 mg PO BID [facility] Stop: 08/01/20 08:59 Trolamine Salicylate (Trolamine Salicylate 10% Crm 255 Appln/85 Gm Tube) 1 appln EXT QID PRN PRN Reason: Pain Stop: 08/04/20 18:59 Last Admin: 07/05/20 19:29 Dose: 1 appln Documented by: Umeclidinium [place] (Incruse Ellipta) 1 puffs INH DAILY RADHA Stop: 08/01/20 08:59 Last Admin: 07/07/20 08:09 Dose: 1 puffs Documented by: Vitamin D (Vitamin D3) 2,000 units PO DAILY RADHA Stop: 08/01/20 08:59 Last Admin: 07/07/20 08:11 Dose: 2,000 units Documented by:
--- NOTE | 2020-07-07 10:05 | Cardiology Progress Note ---
Date of Service July 07, 2020 Assessment & Plan (1) Acute on chronic right-sided congestive heart failure: Multifactorial volume overload secondary to morbid obesity/hypoventilatory syndrome, non compliance with BIPAP/O2 therapy Continue furosemide 80 mg IV BID AT least another 24 hours Now beginning to respond to diuretics, weight down 8 kg Continue to encourage use of CPAP/BiPAP (2) Hypokalemia: Supplement with oral potassium 40 TID. g continue spironolactone 50 mg BID Monitor (3) Pickwickian syndrome: We discussed his underlying obesity is playing a large role in his condition. He was previously referred to [facility] weight loss clinic for evaluation of bariatric surgery. He declined/refused and is still adamant about not proceeding with this option. (4) SIDRA treated with BiPAP: Notes tolerating BiPAP in hospital using home unit encouraged continued usage post discharge (5) Depression: Admission and Anticipated Discharge Date Admission Date: July 01, 2020 Subjective Patient seen and examined, chart, medications, telemetry reviewed. No acute complaints sitting out of bed in chair. Continues to manifest brisk diuresis and weight is down 8 kg remains 6 to 8 kg above dry weight. No chest pains or worsening shortness of breath. Was able to use BiPAP once again last evening Only request tomatoes as snack Physical Exam Constitutional: + morbidly obese Eyes: PERRL, conjunctivae normal, anicteric sclerae ENMT: external ear and nose normal, oropharynx normal Neck: + thick neck Respiratory: Auscultation: + diminished lung sounds Cardiovascular: Rate/Rhythm: regular rate and regular rhythm Heart Sounds: no murmur Vessels: no JVD and no carotid bruit Extremities: + edema (Persistent lower extremity abdominal edema though improved) Gastrointestinal (Abdomen): normal bowel sounds, soft, nontender, no hepatosplenomegaly Results & Data ([facility]) Vital Signs (Past 12 Hours) Vital Signs Temp Pulse Pulse Resp BP Pulse Ox 07/07/20 07:23 62 07/07/20 07:22 36.4 C L 65 20 127/75 91 07/07/20 04:00 36.5 C 71 20 107/60 95 07/07/20 00:00 73 07/06/20 23:00 36.7 C 82 20 113/63 95 Laboratory Results Laboratory Results - last 24 hr 07/06/20 07/06/20 07/06/20 11:07 16:36 20:38 WBC RBC Hgb Hct MCV MCH MCHC RDW Std Deviation RDW Coeff of [place] Plt Count MPV Sodium Potassium Chloride Carbon Dioxide Anion Gap BUN Creatinine Est Cr Clr Drug Dosing Est GFR ( Amer) Est GFR (Non-Af Amer) BUN/Creatinine Ratio Glucose POC Glucose 172 H 95 141 H Calcium 07/07/20 07/07/20 07/07/20 07:17 07:17 07:33 WBC 5.31 RBC 4.34 L Hgb 13.3 L Hct 40.7 L MCV 93.8 MCH 30.6 MCHC 32.7 RDW Std Deviation 55.0 H RDW Coeff of [place] 16.3 H Plt Count 204 MPV 10.6 H Sodium 139 Potassium 3.9 Chloride 104 Carbon Dioxide 30 Anion Gap 5.0 BUN 17 Creatinine 1.01 Est Cr Clr Drug Dosing 156.5 Est GFR ( Amer) 98.7 Est GFR (Non-Af Amer) 85.1 BUN/Creatinine Ratio 16.8 Glucose 116 H POC Glucose 125 H Calcium 8.7
--- NOTE | 2020-07-07 10:38 | Nephrology Progress Note ---
Date of Service July 07, 2020 Assessment & Plan (1) Hypokalemia: from diuresis. K is now better at 3.9 today. Continue monitoring and replete as needed. (2) Electrolyte and fluid disorder: Hyponatremia has improved with a sodium of 139 today. -continue to encourage conservative measures to manage edema - leg elevation, wrapping >> consider consult for unna boots?; he is generally resistant to trying these measures (3) Acute on chronic right-sided congestive heart failure: Continue Lasix 80 mg IV twice daily, Aldactone and metolazone. If patient is to be discharged, he can be switched to torsemide 100 mg daily in addition to the Aldactone and metolazone at current doses. Admission and Anticipated Discharge Date Admission Date: July 01, 2020 Subjective Patient feels better today. Leg swelling is subsiding. No shortness of breath. Patient is requesting to be discharged. He was net -3.5 L in 24 hours. His weight has gone down from 2014 kg to 207 kg since admission. Review of Systems Review of Systems: All systems reviewed & are unremarkable except as noted in HPI & below Physical Exam Physical Exam: General exam: Morbidly obese male, appears comfortable, no acute distress HEENT: Pupils are equal and reactive to light Neck: No JVD, neck is supple trachea is midline Respiratory system: Clear breath sounds bilaterally. Gastrointestinal: Abdomen is soft, non distended, non tender, bowel sounds are present CVS: Regular rate and rhythm. No murmurs, rubs or gallops Musculoskeletal: No joint or muscle tenderness Extremities: Non tender, 1+ edema, peripheral pulses are present Neuro: Oriented, no tremors, no focal neurological deficits Skin: No rashes Results & Data ([facility]) Vital Signs (Past 12 Hours) Vital Signs Temp Pulse Pulse Resp BP Pulse Ox 07/07/20 07:23 62 07/07/20 07:22 36.4 C L 65 20 127/75 91 07/07/20 04:00 36.5 C 71 20 107/60 95 07/07/20 00:00 73 07/06/20 23:00 36.7 C 82 20 113/63 95 Laboratory Results 07/07/20 07:17 07/07/20 07:17 WBC 5.31 RBC 4.34 L MCV 93.8 MCH 30.6 MCHC 32.7 RDW Std Deviation 55.0 H RDW Coeff of [place] 16.3 H Plt Count 204 MPV 10.6 H
[2020-07-07] MEDS: OXYCODONE/ACETAMINOPHEN 5mg/325mg TAB PO PRN (20:40)
[2020-07-07] MEDS: cefTRIAXone SODIUM 2,000 MG in DEXTROSE 5% 50 ML IV SCH (21:27)
[2020-07-08] MEDS: HEPARIN SODIUM (PORCINE) 7,500 UNITS in SYRINGE 0 ML SQ SCH ×2 (06:28→12:48)
[2020-07-08 07:32] LABS: BUN Creatinine Ratio 16.7 (10-20); Calcium 7.9 mg/dl (8.5-10.1); Creatinine Clr Calc Pharmacy 164.2 ml/min; Est GFR (African American) 104.9; Est GFR (Non-African American) 90.5; Potassium 4.2 mmol/L (3.5-5.1)
[2020-07-08] MEDS: LACTOBACILLUS ACIDOPHILUS (FLORANEX) TAB PO SCH ×2 (08:57→12:48)
[2020-07-08] MEDS: CHOLECALCIFEROL 1,000 UNITS 25 MCG TAB PO SCH (08:58)
[2020-07-08] MEDS: SERTRALINE HCL 100 MG TABLET PO SCH (08:58)
[2020-07-08] MEDS: ASPIRIN 81 MG ECTAB PO SCH (08:58)
[2020-07-08] MEDS: metOLazone 2.5 MG TABLET PO SCH (08:58)
[2020-07-08] MEDS: PANTOprazole 40 MG TAB PO SCH (08:58)
[2020-07-08] MEDS: SPIRONOLACTONE 25 MG TAB PO SCH (08:58)
[2020-07-08] MEDS: POTASSIUM CHLORIDE 20 MEQ TABCR PO SCH (08:59)
[2020-07-08] MEDS ORDERED: INSULIN GLARGINE SOLOSTAR 100 UNITS/ML 3 ML PEN SQ SCH (09:00)
[2020-07-08] MEDS: UMECLIDINIUM BROMIDE 62.5MCG/BLISTER 7 PUFFS/INHALER INH SCH (09:00)
--- NOTE | 2020-07-08 09:00 | Hospitalist Progress Note ---
Date of Service July 08, 2020 Assessment & Plan (1) Acute diastolic congestive heart failure: Volume overload/acute on chronic diastolic heart failure/ right-sided HF Presented with shortness of breath increased weight. worsening of bilateral lower extremity swelling History of diastolic dysfunction Echo on 04/22/2020: Moderate concentric left ventricular hypertrophy. Ejection fraction 60-65% Grade 1 diastolic dysfunction. Patient was given IV Lasix in the ER, 40 mg IV twice daily, then increased to 80 mg IV BID, and continued Monitor in PCU/telemetry Cardiology consulted, appreciate their input Low-salt diet, fluid restriction 1500 mL a day Patient will be discharged back on his home torsemide, metolazone and spironolactone. He was counseled again on fluid and salt restriction, use of BiPAP, and smoking cessation, as well as weight loss Chronic bilateral lower extremity swelling/lymphedema: Presents with worsening of swelling in last few days Continue IV Lasix as outlined above Lower extremity Dopplers ordered to rule out DVT- negative LEFT FOOT PAIN : secondary to increased edema due to right-sided heart failure, and likely cellulitis xray - negative for any fractures Venous Doppler - no DVT, Bakers cyst on the left was recently started with PO keflex continued IV rocephin while inpt HYPONATREMIA : hard to assess intravascular vol status -given morbid obesity , body habitus clinically appears to be markedly vol overloaded on admission cont IV lasix while inpt ordered for fluid restriction nephrology consulted, appreciate their input Hypokalemia: Potassium 2.7, possible secondary to home diuretics dose Patient denies of any nausea vomiting or diarrhea P.o. and IV potassium replacement done in ER Will continue to closely monitor and replete as needed Mag level within normal limit Type 2 diabetes: Presented with hyperglycemia, Very poorly controlled, current hemoglobin A1c 11% Pharmacy consulted for glycemic management Continue basal Lantus, added insulin sliding scale Blood sugar 341 in ER, no evidence of DKA with normal bicarb, normal beta hydroxybutyrate given 10 U of iv insulin in ER History of obesity hypoventilation syndrome/obstructive sleep apnea Continue BiPAP at night at home noncompliant with BiPAP Depression/ Anxiety Had SI comments while speaking w/ cardiology Psych consulted, Zoloft increased to 100 mg daily DVT prophylaxis: Moderate to high risk, subcu heparin CODE STATUS: Full code Disposition: Expected to be discharged home when medically stable Family medicine follow-up with Dr. Roy at [facility]. Admission and Anticipated Discharge Date Admission Date: July 01, 2020 Subjective K 4.1 this AM, hold a.m. potassium dose. Patient is currently sitting in a chair, in no acute distress. Says he feels much better. He does have an appointment with orthopedics that he would like to make today. Discussed in detail that he has to stick to low fluid and low-sodium diet. Also discussed that he needs to weigh himself and watch his weight. He will closely follow-up with his primary care doctor and system designer. 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 Also discussed smoking cessation. Review of Systems Review of Systems: All systems reviewed & are unremarkable except as noted in HPI & below Constitutional: no fever and no chills Respiratory: no cough and no dyspnea Cardiovascular: no chest pain and no palpitations Gastrointestinal: no abdominal pain, no nausea and no vomiting Physical Exam Physical Exam: Constitutional: WD/WN, vitals as above + morbidly obese male laying in bed, in NAD Head: appears normocephalic Eyes: + anicteric sclerae, EOMI Respiratory: no cough Auscultation: + diminished lung sounds, mild bibasilar crackles, no wheezing noted Cardiovascular: Rate/Rhythm: regular rate and regular rhythm Extremities: + pedal edema and + edema severe bilateral lower ext edema, venous stasis changes noted Gastrointestinal (Abdomen): Percussion/Palpation: abdomen soft, nontender, obese, + bowel sounds Musculoskeletal: severe lower extremity swelling , lymphadenopathy (improved), with chronic venous stasis changes noted, no open wound noted Neuro/ Psych: alert and oriented x3, answers questions appropriately, PERRL, EOMI, no face palsy, no dysarthria, moves extremities spontaneously Results & Data Results & Data ([facility]) Vital Signs (Past 12 Hours) Vital Signs Temp Pulse Pulse Resp BP Pulse Ox 07/08/20 07:27 60 07/08/20 07:14 36.4 C L 64 22 162/64 H 95 07/08/20 03:50 36.6 C 68 21 135/72 97 07/08/20 01:16 63 07/08/20 00:25 61 122/74 07/07/20 23:23 36.6 C 61 22 91/55 L 91 Laboratory Results 07/08/20 07/08/20 07/07/20 Range/Units 07:19 06:24 20:22 Sodium 139 (136-145) mmol/L Potassium 4.2 (3.5-5.1) mmol/L Chloride 108 H (98-107) mmol/L Carbon Dioxide 28 (21-32) mmol/L Anion Gap 3.0 (3-11) BUN 16 (7-18) mg/dl Creatinine 0.96 (0.6-1.4) mg/dl Est Cr Clr Drug Dosing 164.2 ml/min Est GFR ( Amer) 104.9 Est GFR (Non-Af Amer) 90.5 BUN/Creatinine Ratio 16.7 (10-20) Glucose 120 H (70-99) mg/dl POC Glucose 129 H 169 H (70-99) mg/dl Calcium 7.9 L (8.5-10.1) mg/dl Magnesium 2.0 (1.8-2.4) mg/dl 07/07/20 07/07/20 Range/Units 16:52 12:03 Sodium (136-145) mmol/L Potassium (3.5-5.1) mmol/L Chloride (98-107) mmol/L Carbon Dioxide (21-32) mmol/L Anion Gap (3-11) BUN (7-18) mg/dl Creatinine (0.6-1.4) mg/dl Est Cr Clr Drug Dosing ml/min Est GFR ( Amer) Est GFR (Non-Af Amer) BUN/Creatinine Ratio (10-20) Glucose (70-99) mg/dl POC Glucose 133 H 118 H (70-99) mg/dl Calcium (8.5-10.1) mg/dl Magnesium (1.8-2.4) mg/dl Medications Administered Current Inpatient Medications Acetaminophen (Acetaminophen 325 Mg Tab) 650 mg PO Q4H PRN PRN Reason: Pain or Fever Stop: 07/31/20 18:01 Last Admin: 07/03/20 21:29 Dose: 650 mg Documented by: Al Hydrox/Mg Hydrox/Simethicone (Maalox) 15 ml PO Q4H PRN PRN Reason: Dyspepsia Stop: 07/31/20 18:01 Aspirin (Ecotrin Ectab) 81 mg PO DAILY RADHA Stop: 08/01/20 08:59 Last Admin: 07/07/20 08:10 Dose: 81 mg Documented by: Dextrose (Dextrose 50%) 25 - 50 ml IV UD PRN; Protocol PRN Reason: Hypoglycemia Protocol Stop: 07/31/20 20:26 Fluticasone Propionate (Flonase) 2 sprays GUSTABO DAILY PRN PRN Reason: Nasal Congestion Stop: 07/31/20 20:26 Glucagon (Glucagen) 1 mg SQ UD PRN; Protocol PRN Reason: Hypoglycemia Protocol Stop: 07/31/20 20:26 Glucose (Dex4 Glucose) 4 - 8 tabs PO UD PRN; Protocol PRN Reason: Hypoglycemia Protocol Stop: 07/31/20 20:26 Glucose (Glucose 40%) 15 - 30 gm PO UD PRN; Protocol PRN Reason: Hypoglycemia Protocol Stop: 07/31/20 20:26 Ceftriaxone Sodium 2,000 mg/ (Dextrose) 70 mls @ 100 mls/hr IV Q24H [facility]; Protocol Stop: 07/08/20 21:59 Last Infusion: 07/07/20 22:57 Dose: Infused Documented by: Heparin Sodium (Porcine) 7,500 (units/ Syringe) 0.75 mls @ 10 mls/min SQ Q8 [facility] Stop: 07/31/20 22:14 Last Admin: 07/08/20 06:28 Dose: 10 mls/min Documented by: Furosemide 80 mg/ Syringe 8 mls @ 4 mls/min IV BID17 [facility] Stop: 08/02/20 09:59 Last Admin: 07/07/20 17:15 Dose: 4 mls/min Documented by: Insulin Aspart (Insulin Aspart 100 Units/Ml 3 Ml Pen) 0 units SC ACHS [facility]; Protocol Stop: 08/06/20 07:29 Last Admin: 07/07/20 21:22 Dose: 12 units Documented by: Insulin Glargine (Insulin Glargine Solostar 100 Units/Ml 3 Ml Pen) 63 units SQ BID [facility]; Protocol Stop: 08/07/20 08:59 Lactobacillus Acidophilus (Floranex) 4 tab PO TID [facility] Stop: 08/01/20 08:59 Last Admin: 07/07/20 20:35 Dose: 4 tab Documented by: Lidocaine (Lidocaine 5% 1 Patch) 1 patch TD QAM [facility] Stop: 08/03/20 18:59 Last Admin: 07/07/20 08:10 Dose: 1 patch Documented by: Magnesium Hydroxide (Milk Of Magnesia) 30 ml PO Q12H PRN PRN Reason: Constipation Stop: 07/31/20 18:01 Menthol (Cough Drop (Sugar Free) Vilma 24 Vilma/1 Box) 1 vilma BUCCAL Q4H PRN PRN Reason: Sore Throat Stop: 08/01/20 19:29 Metolazone (Zaroxolyn) 2.5 mg PO TuThSa@0900 [facility] Stop: 08/02/20 08:59 Last Admin: 07/05/20 08:35 Dose: 2.5 mg Documented by: Miscellaneous (Carbohydrates For Hypoglycemia) 15 - 30 gm PO UD PRN PRN Reason: Hypoglycemia Protocol Stop: 07/31/20 20:26 Miscellaneous (Remove Nicoderm Patch) 1 ea N/A DAILY@0859 [facility] Stop: 08/03/20 08:58 Last Admin: 07/07/20 08:06 Dose: Not Given Documented by: Miscellaneous (Remove Lidoderm Patch) 1 ea N/A DAILY@2100 [facility] Stop: 08/03/20 22:59 Last Admin: 07/07/20 20:43 Dose: Not Given Documented by: Miscellaneous Information (Consult Glycemic Management Pharmacy) 1 ea N/A UD PRN PRN Reason: Consult Stop: 07/31/20 21:25 Nicotine (Nicotine 14 Mg/24 Hr Patch) 14 mg TD QAM [facility] Stop: 08/02/20 16:14 Last Admin: 07/07/20 08:07 Dose: Not Given Documented by: Oxycodone/Acetaminophen (Oxycodone/Acetaminophen 5mg/325mg Tab) 1 tab PO Q8 PRN PRN Reason: Pain Stop: 07/15/20 20:26 Last Admin: 07/07/20 20:40 Dose: 1 tab Documented by: Pantoprazole Sodium (Protonix) 40 mg PO QAM [facility] Stop: 08/01/20 08:59 Last Admin: 07/07/20 08:07 Dose: 40 mg Documented by: Polyethylene Glycol (Miralax Powder Packet) 17 gm PO DAILY PRN PRN Reason: Constipation Stop: 07/31/20 18:01 Potassium Chloride (Potassium Chloride 20 Meq Tabcr) 40 meq PO TID [facility] Stop: 08/03/20 13:59 Last Admin: 07/07/20 20:36 Dose: 40 meq Documented by: Sennosides (Senokot) 17.2 mg PO DAILY PRN PRN Reason: Constipation Stop: 07/31/20 20:26 Sertraline HCl (Sertraline Hcl 100 Mg Tablet) 100 mg PO DAILY RADHA Stop: 08/02/20 08:59 Last Admin: 07/07/20 08:10 Dose: 100 mg Documented by: Spironolactone (Aldactone) 50 mg PO BID RADHA Stop: 07/31/20 20:59 Last Admin: 07/07/20 20:35 Dose: 50 mg Documented by: Torsemide (Torsemide 20 Mg Tab) 80 mg PO BID [facility] Stop: 08/01/20 08:59 Trolamine Salicylate (Trolamine Salicylate 10% Crm 255 Appln/85 Gm Tube) 1 appln EXT QID PRN PRN Reason: Pain Stop: 08/04/20 18:59 Last Admin: 07/05/20 19:29 Dose: 1 appln Documented by: Umeclidinium [place] (Incruse Ellipta) 1 puffs INH DAILY RADHA Stop: 08/01/20 08:59 Last Admin: 07/07/20 08:09 Dose: 1 puffs Documented by: Vitamin D (Vitamin D3) 2,000 units PO DAILY RADHA Stop: 08/01/20 08:59 Last Admin: 07/07/20 08:11 Dose: 2,000 units Documented by:
[2020-07-08] MEDS: LIDOCAINE 5% 1 PATCH TD SCH (09:02)
[2020-07-08] MEDS: FUROSEMIDE 80 MG in SYRINGE 0 ML IV SCH (09:02)
[2020-07-08] MEDS: NICOTINE 14 MG/24 HR PATCH TD SCH (09:03)
[2020-07-08] MEDS: INSULIN ASPART 100 UNITS/ML 3 ML PEN SC SCH ×2 (09:04→12:46)
--- NOTE | 2020-07-08 10:27 | Pharmacy Report ---
Pharmacy Glycemic Short Note 2 - Date of Service July 08, 2020 - Glycemic Short BSG Results (Last 24 hours): 07/07/20 07/07/20 07/07/20 12:03 16:52 20:22 Glucose POC Glucose 118 H 133 H 169 H 07/08/20 07/08/20 06:24 07:19 Glucose 120 H POC Glucose 129 H OUTPATIENT ANTIDIABETIC REGIMEN: * Trulicity 1.5 mg SC weekly + Lantus 40 unit SC HS + Novolog 10 units SC AC + Metformin 2 gm PO Daily * A1c = 11% from 07/01/2020 ASSESSMENT: 07/08: * Pt has received 188 units of insulin over the past 24hrs * 125 units of basal (Lantus) * 63 units of bolus (NovoLog) (low CHO counts at dinner and HS) * BSGs [phone] * AM fasting BSG is in goal range at 129 mg/dl this AM --> no changes needed to basal insulin dosing; will split dosing equally BID in prep for dc instead of dosing per BSG scale * Post prandial BSGs in goal range --> no changes needed to CF/CR 07/06 * Patient received total of 238 units of insulin yesterday, of which 120 were basal insulin * Fasting BSG this AM improving 167 mg/dL - continue with scale for Lantus * BSGs tend to drop significantly from lunch to dinner, plan to loosen CR with lunch check. Will need to tighten back in AM PLAN FOR INPATIENT GLYCEMIC CONTROL: * Hold outpatient diabetes medications * Basal insulin * Lantus 63 units SQ BID * Bolus insulin * NovoLog per scale ACHS or Q6hrs while NPO * Goal Range: Low 110 mg/dL - High 140 mg/dL * Correction Factor: 7 mg/dL/unit * Nutritional / Prandial insulin per carb ratio of 1 unit per 1.5 grams CHO consumed Discharge Recs: 1. A1c 11% and BG values in 300-500s at home- suggest increasing Lantus and Novolog doses. May continue Trulicity and metformin * Recommend: * Lantus 63 units SQ BID * NovoLog fixed dosing per CHO content in meals * LOW CHO meal --> 5 units NovoLog * Medium CHO meal --> 15 units NovoLog * Large CHO meal --> 25 units NovoLog 2. A1c > 9% - pt will need close follow-up at time of discharge. Pt has appointment with [facility] on Tuesday, 07/09 at 1030. PRESCRIPTIONS NEEDED: 1. Lantus solostar pen. 2. Novolog flexpen.
--- NOTE | 2020-07-08 11:14 | Cardiology Progress Note ---
Date of Service July 08, 2020 Assessment & Plan (1) Acute on chronic right-sided congestive heart failure: Multifactorial volume overload secondary to morbid obesity/hypoventilatory syndrome, non compliance with BIPAP/O2 therapy Clinically improved, weight down greater than 9 kg Leg edema improved May switch to oral prehospital regimen torsemide 80 mg twice per day plus metolazone 2.5 mg 3 days/week Strongly urged fluid restriction and use of CPAP BiPAP (2) Hypokalemia: Supplement with oral potassium 40 twice daily continue spironolactone 50 mg BID Monitor (3) Pickwickian syndrome: We discussed his underlying obesity is playing a large role in his condition. He was previously referred to GI nutrition weight loss clinic for evaluation of bariatric surgery. He declined/refused and is still adamant about not proceeding with this option. (4) SIDRA treated with BiPAP: Notes tolerating BiPAP in hospital using home unit encouraged continued usage post discharge (5) Depression: Admission and Anticipated Discharge Date Admission Date: July 01, 2020 Subjective Patient seen and examined. Continues to manifest brisk diuresis Using sleep apparatus at night Review of Systems 2 Review of Systems: All systems reviewed & are unremarkable except as noted in HPI & below Physical Exam Constitutional: + morbidly obese Eyes: PERRL, conjunctivae normal, anicteric sclerae ENMT: external ear and nose normal, oropharynx normal Neck: + thick neck Respiratory: Auscultation: + diminished lung sounds Cardiovascular: Rate/Rhythm: regular rate and regular rhythm Heart Sounds: no murmur Vessels: no JVD and no carotid bruit Extremities: + edema (Persistent lower extremity abdominal edema though improved) Gastrointestinal (Abdomen): normal bowel sounds, soft, nontender, no hepatosplenomegaly Results & Data ([facility]) Vital Signs (Past 12 Hours) Vital Signs Temp Pulse Pulse Resp BP Pulse Ox 07/08/20 07:27 60 07/08/20 07:14 36.4 C L 64 22 162/64 H 95 07/08/20 03:50 36.6 C 68 21 135/72 97 07/08/20 01:16 63 07/08/20 00:25 61 122/74 07/07/20 23:23 36.6 C 61 22 91/55 L 91 Laboratory Results Laboratory Results - last 24 hr 08/17/20 08/17/20 08/17/20 12:03 16:52 20:22 Sodium Potassium Chloride Carbon Dioxide Anion Gap BUN Creatinine Est Cr Clr Drug Dosing Est GFR ( Amer) Est GFR (Non-Af Amer) BUN/Creatinine Ratio Glucose POC Glucose 118 H 133 H 169 H Calcium Magnesium 07/08/20 07/08/20 06:24 07:19 Sodium 139 Potassium 4.2 Chloride 108 H Carbon Dioxide 28 Anion Gap 3.0 BUN 16 Creatinine 0.96 Est Cr Clr Drug Dosing 164.2 Est GFR ( Amer) 104.9 Est GFR (Non-Af Amer) 90.5 BUN/Creatinine Ratio 16.7 Glucose 120 H POC Glucose 129 H Calcium 7.9 L Magnesium 2.0
[2020-07-08 11:33] VITALS: PULSE 62; TEMP 98.1; O2SAT 94
--- NOTE | 2020-07-08 12:41 | Discharge Summary ---
Date of Service July 08, 2020 Admission HPI Per Admitting Provider Chief Complaint: Leg swelling, shortness of breath Primary Care Provider: Chavo Roy DO This is a 54-year-old male with past medical history of morbid obesity chronic diastolic heart failure, type 2 diabetes, hypertension hyperlipidemia came to the ED for evaluation of swelling of bilateral legs For the past few weeks patient noted increased weight gain, difficulty breathing with activity , worsening of swelling of both legs his SOB continued worsened reports of taking his diuretics does not follow low salt diet left foot pain noted 4 days back pt does not remember any trauma -has significant lower ext neuropathy Patient has history of obstructive sleep apnea/obesity hypoventilation syndrome reports of orthopnea -sits up multiple times at night to breath has been using Bipap at night intermittently No fever or chills, no cough Admission Exam Per Admitting Provider Constitutional: WD/WN, vitals as above + morbidly obese morbid obesity Eyes: + anicteric sclerae Respiratory: no cough Auscultation: + diminished lung sounds Cardiovascular: Rate/Rhythm: regular rate and regular rhythm Extremities: + calf tenderness, + pedal edema and + edema severe bilateral lower ext edema Gastrointestinal (Abdomen): Percussion/Palpation: abdomen soft; abdomen nontender obese Musculoskeletal: severe lower extremity swelling , lymphadenopathy , with chronic venous stasis change pain and swelling with increased warmth on left dorsal foot, no open wound noted Neurologic: PERRL, EOMI, accommodation nl, no face palsy, no dysarthria Principal Diagnosis Acute right-sided heart failure exacerbation SIDRA, not compliant with BiPAP Morbid obesity Pickwickian syndrome Hypokalemia Discharge Exam Constitutional: WD/WN, vitals as above + morbidly obese male laying in bed, in NAD Head: appears normocephalic Eyes: + anicteric sclerae, EOMI Respiratory: no cough Auscultation: + diminished lung sounds, mild bibasilar crackles, no wheezing noted Cardiovascular: Rate/Rhythm: regular rate and regular rhythm Extremities: + pedal edema and + edema severe bilateral lower ext edema, venous stasis changes noted Gastrointestinal (Abdomen): Percussion/Palpation: abdomen soft, nontender, obese, + bowel sounds Musculoskeletal: severe lower extremity swelling , lymphadenopathy (improved), with chronic venous stasis changes noted, no open wound noted Neuro/ Psych: alert and oriented x3, answers questions appropriately, PERRL, EOMI, no face palsy, no dysarthria, moves extremities spontaneously Discharge Data Allergies Allergy/AdvReac Type Severity Reaction Status Date / Time vancomycin Allergy Intermediate Hives Verified 07/01/20 17:54 hydrocodone [From Vicodin] Allergy Mild Rash Verified 07/01/20 17:54 Consultations 07/01/20 17:15 ED Decision to Admit Stat 07/01/20 18:02 Consult Cardiology Routine 07/01/20 18:06 Consult Case Management - Discharge Planning Routine 07/01/20 22:02 Consult Nephrology Routine 07/02/20 10:47 Consult Psychiatry Routine Ordered Studies 07/01/20 17:58 US venous doppler LE BI Stat IMPRESSION: 1. There is no sonographic evidence of deep venous thrombosis in the visualized vessels of the right or left lower extremity. See above. 2. Left-sided Valdovinos's cyst. Diabetes Follow up Diabetes Follow-up Needed for HgbA1c >9% Hospital Course (1) Acute diastolic congestive heart failure: Volume overload/acute on chronic diastolic heart failure/ right-sided HF Presented with shortness of breath increased weight. worsening of bilateral lower extremity swelling History of diastolic dysfunction Echo on 04/22/2020: Moderate concentric left ventricular hypertrophy. Ejection fraction 60-65% Grade 1 diastolic dysfunction. Patient was given IV Lasix in the ER, 40 mg IV twice daily, then increased to 80 mg IV BID, and continued Monitor in PCU/telemetry Cardiology consulted, appreciate their input Low-salt diet, fluid restriction 1500 mL a day Patient will be discharged back on his home torsemide, metolazone and spironolactone. He was counseled again on fluid and salt restriction, use of BiPAP, and smoking cessation, as well as weight loss Chronic bilateral lower extremity swelling/lymphedema: Presents with worsening of swelling in last few days Continue IV Lasix as outlined above Lower extremity Dopplers ordered to rule out DVT- negative LEFT FOOT PAIN : secondary to increased edema due to right-sided heart failure, and likely cellulitis xray - negative for any fractures Venous Doppler - no DVT, Bakers cyst on the left was recently started with PO keflex continued IV rocephin while inpt HYPONATREMIA : hard to assess intravascular vol status -given morbid obesity , body habitus clinically appears to be markedly vol overloaded on admission cont IV lasix while inpt ordered for fluid restriction nephrology consulted, appreciate their input Hypokalemia: Potassium 2.7, possible secondary to home diuretics dose Patient denies of any nausea vomiting or diarrhea P.o. and IV potassium replacement done in ER Will continue to closely monitor and replete as needed Mag level within normal limit Type 2 diabetes: Presented with hyperglycemia, Very poorly controlled, current hemoglobin A1c 11% Pharmacy consulted for glycemic management Continue basal Lantus, added insulin sliding scale Blood sugar 341 in ER, no evidence of DKA with normal bicarb, normal beta h ydroxybutyrate given 10 U of iv insulin in ER History of obesity hypoventilation syndrome/obstructive sleep apnea Continue BiPAP at night at home noncompliant with BiPAP Depression/ Anxiety Had SI comments while speaking w/ cardiology Psych consulted, Zoloft increased to 100 mg daily DVT prophylaxis: Moderate to high risk, subcu heparin CODE STATUS: Full code Disposition: Expected to be discharged home when medically stable Family medicine follow-up with Dr. Roy at [facility]. Total Time Total Time Spent Total Time Spent (In Minutes): 40 Total Time Includes: Examination of the Patient, Discharge Planning, Medication Reconciliation and Communication With Other Providers Discharge Plan Discharge Items Patient Disposition: Home - Self-Care Reason For Visit: VOLUME OVER LOAD Discharge Diagnosis: Acute CHF exacerbation Condition on Discharge: Good Activity: Per Instructions section Non-emergency contact: Primary Care Provider and Medieval English Literature Professor Call non-emergency contact if: you have any medication questions and your symptoms worsen Follow-up/Referrals: Chavo Roy DO [Primary Care Provider] - 07/14/20 11:20 am (07/14/2020 11:20 AM Provider Chavo Roy DO Department Family [facility] ) Diet: Low Sodium (2gm) Fluids: 1500ml (6 cups) Addtl Attending Provider Instructions: Follow-up with your primary care provider as already scheduled, on July 14. Weigh yourself daily and record these numbers. These are important for your physician to review. Make sure to have a low sodium diet, and low fluid diet as mentioned above. It is crucial that you continue to use your BiPAP at night when you sleep or as needed. Strongly recommend weight loss, recommend to consult with dietitian/oil treater. Also strongly recommend smoking cessation, can use 1 800 quit now , free smoking cessation line. Addtl Supervisor Cig[employer] Processing Provider Instructions: Call your Primary Care doctor if any of the following symptoms or problems start or get worse: * Shortness of breath or difficulty breathing * Wake up at night short of breath * Chest pain * Cough * Swelling of your hands, feet, or legs * More fatigued or tired with your normal activity * Palpitations - sudden fast heart beats WEIGHT * Weigh yourself every morning after using the bathroom. * Use the same scale. * Wear the same amount of clothing. * Write your weight down on a chart. * Call your Primary Care doctor if you gain more than 2-3 pounds in 1-2 days. MEDICATIONS * Use this discharge instruction sheet for medication instructions. * Take your medications at the time your doctor ordered. * Do not skip a dose of your medicines. * If you miss a dose of medicine, take it as soon as possible, but DO NOT DOUBLE A DOSE. * Read your medicine information when you get home. * Know all of the side effects of your medicine. If in doubt, ask your pharmacist * Call your Primary Care doctor's office if you have any side effects. * Be sure all of your doctors know what medicine and herbs you take (including cold, flu, and herbal medicine). Take the following with you to your follow-up doctor appointments: * Weight Chart * Medication List * List of questions Do not drink excessive alcohol, beer or wine. Pending Studies at Discharge: No Stand-Alone Forms: My [facility], Smoking Cessation Medications and DC Order Prescriptions: New sertraline 100 mg Tablet 100 mg PO DAILY 30 Days Qty: 30 RF: 0 Continued cholecalciferol (vitamin D3) 2,000 unit capsule 2,000 unit PO DAILY RF: 0 Chantix 1 mg tablet 1 mg PO BID RF: 0 torsemide 20 mg tablet 80 mg PO BID RF: 0 spironolactone 50 mg tablet 50 mg PO BID RF: 0 sennosides [senna] 8.6 mg Tablet 17.2 mg PO DAILY PRN (Reason: Constipation) RF: 0 aspirin 81 mg Tablet,Delayed Release (Dr/Ec) 81 mg PO DAILY RF: 0 acetaminophen 500 mg Tablet 500 mg PO Q6H PRN (Reason: Pain) RF: 0 pantoprazole 40 mg Tablet,Delayed Release (Dr/Ec) 40 mg PO QAM RF: 0 albuterol sulfate [Ventolin HFA] 90 mcg/actuation Hfa Aerosol Inhaler 2 puff INHALATION Q4H PRN (Reason: Shortness Of Breath Or Wheezing) RF: 0 Trulicity 1.5 mg/0.5 mL pen injector 1.5 mg SUBCUT WK RF: 0 Androderm 4 mg/24 hr patch 24 hour 4 mg transdermal DAILY RF: 0 clotrimazole 10 mg marycruz 10 mg mucous membrane 5XD RF: 0 nystatin [Nystop] 100,000 unit/gram powder 1 applic TOPICAL TID RF: 0 insulin aspart U-100 [Novolog Flexpen U-100 Insulin] 100 unit/mL (3 mL) insulin pen 10 unit SUBCUT AC RF: 0 metolazone 2.5 mg tablet 2.5 mg PO 3XWK RF: 0 metformin 500 mg tablet extended release 24 hr 2,000 mg PO DAILY RF: 0 ammonium lactate 12 % lotion 1 applic TOPICAL BID PRN (Reason: Dry Skin - Legs) RF: 0 Lantus Solostar U-100 Insulin 100 unit/mL (3 mL) insulin pen 40 units SQ HS RF: 0 Changed potassium chloride 20 mEq tablet extended release 40 meq PO BID Qty: 0 RF: 0 Discontinued sertraline 50 mg tablet 50 mg PO DAILY RF: 0 cephalexin 500 mg capsule 500 mg PO BID RF: 0 Discharge Orders: Discharge Order (Routine); Ordered 07/08/20 Ordered By: Claude William/Other Patient Handouts: Tips for Using Less Salt, Diabetes and Heart Disease, Heart Failure Making Changes to Your Diet, Fluids Limiting Dc, Eating Heart-Healthy Foods Admission Data Admit Date/Time: 07/01/20 18:03 Attending Provider: Claude Martino Admit Provider: Thania Kaminski Primary Care Provider: Chavo Roy Other Providers: Thania Kaminski ; Hector Mccabe ; Neftaly Reyes ; Parag Alston ; Mihir Jones ; Denis Rodriguez ; Pancho Stuart ; Suzette Guzman ; Aydee Agarwal ; Heri Teran ; Antonia Prince ; Brian Soliman ; Queenie Nathan ; Charlene Ames ; Luna Warner ; Linda Jade
[2020-07-08 12:55] VITALS: BP 132/78
[2020-07-08] MEDS ORDERED: POTASSIUM CHLORIDE 20 MEQ TABCR PO ONE (14:00)
[2020-07-08] MEDS ORDERED: TORSEMIDE 10 MG TAB PO SCH ×2 (17:00→21:00)
[2020-07-08] MEDS ORDERED: POTASSIUM CHLORIDE 20 MEQ TABCR PO SCH (21:00)
== END 2020-07-08 14:08 | disposition home or self-care (01) | DRG 292 ==
LOC: ED 14:56 → 2S 18:03 → SUATTDRO 18:03 → 2S 18:42 → 2N 07-06 16:28

== ENCOUNTER 2020-10-16 19:32 | Inpatient (IN) ==
[2020-10-16 20:50] LABS: Appearance Urine Clear (Clear); Bilirubin Urine Negative (Negative); Blood Urine Negative (Negative); Color Urine Yellow; Glucose Urine UA 3+ (Negative); Ketones Urine Negative (Negative); Leukocyte Esterase Urine Negative (Negative); Nitrite Urine Negative (Negative); Protein Urine Negative (Negative); Specific Gravity Urine 1.023 (1.000-1.030); Urobilinogen Urine Negative (Negative); pH Urine 7.5 (4.5-7.5)
[2020-10-16] MEDS ORDERED: POTASSIUM CHLORIDE 20 MEQ/15 ML UDC PO STA (21:47)
[2020-10-16] MEDS ORDERED: NovoLIN-R INSULIN PER UNIT CHARGE IV STA ×2 (21:48)
[2020-10-16 21:51] LABS: Basophils # (auto) 0.03 K/uL (0-0.2); Basophils % (auto) 0.3 %; Eosinophils # (auto) 0.19 K/uL (0-0.5); Eosinophils % (auto) 1.7 %; Hematocrit (blood only) 38.6 % (42-52); Hemoglobin 12.7 g/dL (14.0-18.0); Immature Granulocytes # (auto) 0.05 K/uL (0.00-0.02); Immature Granulocytes % (auto) 0.5 %; Lymphocytes # (auto) 1.47 K/uL (1.2-3.4); Lymphocytes % (auto) 13.5 %; Mean Corpuscular Hemoglobin 30.2 pg (25-34); Mean Corpuscular Hgb Conc 32.9 g/dL (32-36); Mean Corpuscular Volume 91.7 fL (80-100); Mean Platelet Volume 10.8 fL (7.4-10.4); Monocytes # (auto) 0.64 K/uL (0.11-0.59); Monocytes % (auto) 5.9 %; Neutrophils # (auto) 8.51 K/uL (1.4-6.5); Neutrophils % (auto) 78.1 %; Platelet Count 253 K/uL (130-400); RDW Coefficient of Variation 15.6 % (11.5-14.5); RDW Standard Deviation 52.2 fL (36.4-46.3); Red Blood Count 4.21 M/uL (4.7-6.1); White Blood Count 10.89 K/uL (4.8-10.8)
[2020-10-16 21:57] LABS: iSTAT Creatinine 1.1 mg/dl (0.6-1.3); iSTAT Hemoglobin 12.6 g/dl (14.0-18.0); iSTAT Ionized Calcium 1.07 mmol/l (1.12-1.32); iSTAT Potassium 2.5 mmol/L (3.3-5.0)
[2020-10-16] MEDS: POTASSIUM CHLORIDE / WTR 10 MEQ/100 ML PLCT IV SCH (22:08)
[2020-10-16 22:36] LABS: BUN Creatinine Ratio 19.6 (10-20); C Reactive Protein 2.06 mg/dl (0-0.29); Calcium 8.6 mg/dl (8.5-10.1); Creatinine Clr Calc Pharmacy 111.2 ml/min; Est GFR (Non-African American) 59.5; Potassium 2.6 mmol/L (3.5-5.1)
[2020-10-16 22:37] LABS: Albumin Globulin Ratio 0.7 (0.9-2); Bilirubin,Total 0.3 mg/dl (0.2-1); Globulin 4.3 gm/dl (2.5-4.0); Thyroid Stimulating Hormone 1.92 uIu/ml (0.300-4.500); Total Protein 7.3 gm/dl (6.4-8.2)
[2020-10-16 23:08] LABS: Beta-Hydroxybutyrate 1.48 mg/dl (0.2-2.81)
[2020-10-16] MEDS ORDERED: POTASSIUM CHLORIDE CRTAB 20 MEQ TABCR PO STA (23:39)
[2020-10-16] MEDS ORDERED: POTASSIUM CHLORIDE / WTR 10 MEQ/100 ML PLCT IV STA (23:39)
[2020-10-17] MEDS: POTASSIUM CHLORIDE / WTR 10 MEQ/100 ML PLCT IV SCH ×9 (00:06→21:07)
--- NOTE | 2020-10-17 01:38 | History and Physical Report ---
DATE OF ADMISSION: 10/16/2020 CHIEF COMPLAINT: Not feeling well, hyperglycemia. HISTORY OF PRESENT ILLNESS: This is a 55-year-old male with past medical history significant for morbid obesity, obstructive sleep apnea, noncompliant with BiPAP, diabetes, chronic diastolic CHF,right sided HF, peripheral vascular disease, hypertension, venous insufficiency, venous stasis of both lower extremities, GERD, vitamin D deficiency, history of cellulitis right leg, history of cellulitis of left lower extremity, lymphedema of both extremities, history of oral candidiasis, depression, history of DVT, generalized anxiety disorder, history of male erectile dysfunction, ongoing tobacco abuse. The patient says he cut back on smoking to 4-5 cigarettes daily. The patient says he uses 2 liters of oxygen every day while sleeping and BiPAP he uses on and off. He states he is taking all his medications regularly. He just saw his PCP yesterday for the left great toe injury, which he had with accidental fall from his motorized chair and he was given a dose of Rocephin IM for which he seems to have developed an itchiness, which resolved with Benadryl, Decadron, and Rocephin entered into allergy list and he was discharged on Bactrim, but says at home he was not feeling well today and his sugars were running high, which prompted him to come to the ER. In the ER, his sugars were in 500 range. In ER His sodium is 129, potassium is 2.6, creatinine is 1.35. His hemodynamics are stable, saturating fine. He says he has some chest pressure in the middle of the chest. He thinks he gained about 11-13 pounds of weight since yesterday. He is taking his water pill, but he says he is not micturating as much. He has some shortness of breath with exertion. He uses a walker at home and also wheelchair. Afebrile, has some cough with whitish phlegm. He thinks it is mostly from cutting back on smoking. Has some headache now. Lights bothering him. Denies any blurred vision. No earache, no runny nose. He has some sore throat from dry throat, and sore tongue. Denies any loss of sense of smell or taste. Appetite is okay. No nausea, no vomiting, no abdominal pain. Normal bowel movements. Hemodynamically stable. ALLERGIES: VANCOMYCIN, HYDROCODONE, QUESTIONABLE FOR ROCEPHIN. PAST MEDICAL HISTORY: As mentioned above. PAST SURGICAL HISTORY: Colonoscopy, injection of the lumbosacral spine. MEDICATIONS: The patient is on Tylenol 1000 mg p.o. q. 6 hours p.r.n., albuterol 2 puffs inhalation q. 4 hours p.r.n., ammonium lactate topical b.i.d. p.r.n., Androderm 4 mg transdermal daily, aspirin 81 mg p.o. daily, baclofen 10 mg p.o. b.i.d., Chantix 1 mg p.o. b.i.d., vitamin D 2000 units p.o. daily, insulin NovoLog FlexPen 10 units subcutaneous a.c., Lantus 63 units subcutaneous b.i.d., metformin 2000 mg p.o. daily, metolazone 2.5 mg p.o. 3 times a week, nystatin topical t.i.d. p.r.n., oxybutynin XL 10 mg p.o. daily, Protonix 40 mg p.o. daily, potassium chloride 40 mEq p.o. b.i.d., Senokot S 17.2 mg p.o. daily p.r.n., Zoloft 100 mg p.o. daily, Spiriva 18 mcg inhalation daily, spironolactone 50 mg p.o. b.i.d., Bactrim Double Strength 1 tablet p.o. b.i.d., torsemide 80 mg p.o. b.i.d., tramadol 50 mg p.o. q. 8 hours p.r.n., Trulicity 1.5 mg subcutaneous weekly. FAMILY HISTORY: Significant for aunt has diabetes, father has VA, paternal grandfather has VA. SOCIAL HISTORY: and lives with his family, currently smoking 4-5 cigarettes a day. No alcohol use, no drug use. REVIEW OF SYSTEMS: As per HPI. Rest of the review of systems negative. PHYSICAL EXAMINATION: GENERAL: The patient is morbidly obese, not in acute distress. VITAL SIGNS: Temperature 36.7, pulse 78, respiratory rate 24, blood pressure 145/84, oxygen 93% on room air. HEENT: Pupils are equal, round, reactive to light. Oral mucosa somewhat dry. NECK: No JVD. Supple. CARDIOVASCULAR: S1, S2 heard, regular rate and rhythm, no murmur, no gallop. RESPIRATORY SYSTEM: Normal AP diameter. No accessory muscle use. No wheezing, no crackles. ABDOMEN: Soft, bowel sounds present, nontender. No guarding, no rigidity. CENTRAL NERVOUS SYSTEM: Cranial nerves II-XII grossly intact, nonfocal. EXTREMITIES: Bilateral lower extremity chronic lymphedema seen with left big toe. Mild erythema seen with left big toenail. LABORATORY DATA: WBC 10.8, hemoglobin 12.7, hematocrit 38.6, platelets 253. ESR 51. Sodium 129, potassium 2.6, chloride 81, bicarbonate 29, BUN 26, creatinine 1.35. Serum glucose 538, calcium 8.6, total bilirubin 0.3, AST 22, ALT 40, alkaline phosphatase 211. C-reactive protein 2.06. Beta hydroxybutyric acid 1.4. TSH 1.9. Urinalysis, +3 glucose. IMAGING DATA: Chest x-ray, no acute findings. EKG: Normal sinus rhythm with 83 right bundle branch block seen. QT of 533. ASSESSMENT AND PLAN: This is a 55-year-old male who presents with weight gain and hyperglycemia and also found to have hypokalemia. 1. [id number]-[id number] diastolic congestive heart failure. The patient has gained about 10-13 pounds since yesterday. At home, he is on torsemide 80 mg b.i.d. and Zaroxolyn 3 times a week. As per Epic, he is on spironolactone 50 mg p.o. b.i.d., but the patient is not sure whether he takes spironolactone or not. Currently saturating fine on room air. The patient is also noncompliant with his BiPAP. He has also right-sided heart failure from his Pickwickian syndrome. We will hold his IV diuretics for now since his potassium is low and also saturating fine.will continue home diuretics with home potassium supplements.. We will monitor in tele. Continue his BiPAP at bedtime and consult cardiology in the a.m. for further recommendation. We will get an echocardiogram. He also has some chest pressure. We will get repeat troponin. 2. Chest pressure. will follow serial troponin and echo. 2. Hypokalemia. We will replace aggressively and follow the repeat labs. 3. Hyperglycemia. Sugars are running in 500s even though he received insulin in the ER. We will hold his home Lantus and NovoLog and metformin and Trulicity and we will place him on hyperglycemia protocol with IV insulin and consult pharmacy and closely monitor electrolytes. 4. Hyponatremia. Sodium 129, mostly pseudohyponatremia from hyperglycemia. We will follow the repeat labs. 5. Left great toe infection. The patient says he can tolerate penicillins. We will place him on Zosyn and p.o. doxycycline. Follow the cultures. We will follow the response. Follow the x-ray report. Not in sepsis. 6. Obstructive sleep apnea. Continue his BiPAP at bedtime with 2 liters oxygen. 7. Ongoing tobacco abuse, continue his home Chantix. 8. Gastroesophageal reflux disease, continue his Protonix. 9. Morbid obesity, needs counseling. As per previous records the patient refused gastric bypass surgery. 10. History of depression and anxiety. The patient's last admission had SI. Patient on Zoloft. Currently, the patient does not know whether he is still taking Zoloft or not. Will continue for now. He says his monitors his medications. 11. Prolonged Qt. Avoid qt prolonging drugs.. Follow repeat ekg after potassium replacement.. 12.. Deep venous thrombosis prophylaxis, subQ heparin 7500 q. 8 hours. 13. Code status: Full code as per my discussion with the patient. DISPOSITION: Admit to tele floor. PT and OT prior to discharge. Expect to discharge home and follow up with his family doctor. ADRIAN
[2020-10-17] MEDS ORDERED: ACETAMINOPHEN 325 MG TAB PO PRN (01:53)
[2020-10-17] MEDS ORDERED: DC ALL PREVIOUSLY ORDERED DIABETES MEDS ONE (01:53)
[2020-10-17] MEDS ORDERED: INSULIN GLARGINE SOLOSTAR 100 UNITS/ML 3 ML PEN SQ SCH (01:53)
[2020-10-17] MEDS ORDERED: SENNA 8.6 MG TAB PO PRN (01:53)
[2020-10-17] MEDS ORDERED: ONDANSETRON INJ 2 MG/ML 2 ML VIAL IV PRN (01:53)
[2020-10-17] MEDS ORDERED: INSULIN PROTOCOL GOAL RANGE ONE ×2 (01:53→14:00)
[2020-10-17] MEDS ORDERED: traMADol HCL 50 MG TABLET PO PRN (01:53)
[2020-10-17] MEDS ORDERED: INSULIN REGULAR 250 UNITS in SODIUM CHLORIDE 0.9% 247.5 ML IV SCH (01:53)
[2020-10-17] MEDS ORDERED: ALBUTEROL HFA 8 GM INHALER INH PRN (01:53)
[2020-10-17] MEDS ORDERED: NITROGLYCERIN SL 0.4 MG/TAB TAB SL PRN (01:53)
[2020-10-17] MEDS ORDERED: PIPERACILL/TAZOBAC CONSULT ACTIVE PRN (01:53)
[2020-10-17] MEDS ORDERED: POLYETHYLENE (MIRALAX) 17 GM PACK PO PRN (01:53)
[2020-10-17] MEDS ORDERED: NYSTATIN POWDER 15GM BTL EXT PRN (01:53)
[2020-10-17] MEDS ORDERED: MODERATE STRESS LEVEL ONE (01:53)
[2020-10-17] MEDS ORDERED: PIPERACILLIN/TAZOBACTAM 4.5 GM in DEXTROSE 5% 100 ML IV ONE (02:15)
[2020-10-17] MEDS ORDERED: PHARMACY GLYCEMIC MGMT CONSULT PRN (02:16)
[2020-10-17] MEDS ORDERED: GLUCAGON FOR INJ 1 MG VIAL IM PRN (02:30)
[2020-10-17] MEDS ORDERED: DEXTROSE 50% 50 ML SYRINGE IV PRN (02:30)
[2020-10-17] MEDS ORDERED: GLUCOSE 10 TABS/TUBE PO PRN (02:30)
[2020-10-17] MEDS ORDERED: GLUCOSE 40% GEL 15 GM TUBE PO PRN (02:30)
[2020-10-17] MEDS ORDERED: CARBOHYDRATES FOR HYPOGLYCEMIA PO PRN (02:30)
[2020-10-17] MEDS ORDERED: AMMONIUM LACTATE 12% LOTION 225 GM BTL EXT PRN (02:42)
[2020-10-17] MEDS: INSULIN REGULAR 250 UNITS in SODIUM CHLORIDE 0.9% 247.5 ML IV SCH (03:10)
--- NOTE | 2020-10-17 03:51 | Emergency Department Note ---
History of Present Illness General Chief complaint: Syncope Stated complaint: SYNCOPE Time Seen by Provider: 10/16/20 20:10 Source: patient, RN notes reviewed and old records reviewed (Rudy) Mode of arrival: ambulatory Limitations: patient cooperation History of Present Illness Provider complaint: Fatigue, SOB, left toe infection, weight gain, high blood sugar Maximum Pain Intensity: 8 This patient is a 55-year-old male who presents to the emergency department with complaints of generalized weakness, fatigue, weight gain. Patient states his blood sugar is "out of control" and it did not read on his meter. He states he has been taking his medications but that I would need to check with his regarding the dosing. Patient states he has been "peeing all day." He did see his primary care physician yesterday and believes he has gained 11 pounds from that appointment yesterday to his visit today Home Medications Medication Instructions Recorded Confirmed Type acetaminophen 1,000 mg PO Q6H PRN 04/03/19 10/16/20 History albuterol sulfate [Ventolin HFA] 2 puff INHALATION Q4H PRN 04/03/19 10/16/20 History aspirin 81 mg PO DAILY 04/03/19 10/16/20 History pantoprazole 40 mg PO DAILYBB 04/03/19 10/16/20 History sennosides [senna] 17.2 mg PO DAILY PRN 04/03/19 10/16/20 History cholecalciferol (vitamin D3) 2,000 unit PO DAILY 08/16/19 10/16/20 History Chantix 1 mg PO BID 04/02/20 10/16/20 History torsemide 80 mg PO BID 04/08/20 10/16/20 History Androderm 4 mg TRANSDERMAL DAILY 04/22/20 10/16/20 History Trulicity 1.5 mg SUBCUT WK 04/22/20 10/16/20 History ammonium lactate 1 applic TOPICAL BID PRN 07/01/20 10/16/20 History insulin aspart U-100 [Novolog 10 unit SUBCUT AC 07/01/20 10/16/20 History Flexpen U-100 Insulin] metformin 2,000 mg PO DAILY 07/01/20 10/16/20 History metolazone 2.5 mg PO 3XWK 07/01/20 10/16/20 History nystatin [Nystop] 1 applic TOPICAL TID PRN 07/01/20 10/16/20 History insulin glargine [Lantus Solostar 63 unit SUBCUT BID #0 ml 07/08/20 10/16/20 Rx U-100 Insulin] potassium chloride 40 meq PO BID #0 tab 07/08/20 10/16/20 Rx Spiriva with HandiHaler 18 mcg INHALATION DAILY 10/16/20 10/16/20 History baclofen 10 mg PO BID 10/16/20 10/16/20 History oxybutynin chloride [Ditropan XL] 10 mg PO DAILY 10/16/20 10/16/20 History sertraline [Zoloft] 100 mg PO DAILY 10/16/20 10/16/20 History spironolactone 50 mg PO BID 10/16/20 10/16/20 History sulfamethoxazole-trimethoprim 1 tab PO BID 10/16/20 10/16/20 History tramadol 50 mg PO Q8H PRN 10/16/20 10/16/20 History Allergies Allergy/AdvReac Type Severity Reaction Status Date / Time vancomycin Allergy Intermediate Hives Verified 10/16/20 22:39 hydrocodone [From Vicodin] Allergy Mild Rash Verified 10/16/20 22:39 Past Med/Surg History Medical History (Updated 10/17/20 @ 23:49 by Selene Hwang MD) Asthma Bulging lumbar disc Bulging of cervical intervertebral disc Chronic back pain Chronic right-sided CHF (congestive heart failure) COPD (chronic obstructive pulmonary disease) Diabetes GERD with apnea Gout Hyperlipidemia Hypertension Morbid obesity with BMI of 50.0-59.9, adult Myocardial Infarction ? 10 yrs ago Osteoarthritis RBBB Recurrent cellulitis Seizure Possible seizure in 2016 evaluation normal per patient , no problems since Sleep apnea bipap with 2L oxygen Thyroid nodule just monitoring Tobacco abuse Surgical History History of cardiac cath ? 10yrs ago--no stents History of cholecystectomy History of phacoemulsification of cataract of left eye with intraocular lens implantation History of repair of anterior cruciate ligament of right knee History of toe surgery right big toe History of tooth extraction Family History Aunt Family history of diabetes mellitus Mother Diabetes Father Cancer of kidney Heart disease Other No family history of adverse response to anesthesia Social History Smoking Status: Never smoker Tobacco Type: Cigarettes Years Smoked: 27; Cigarettes Per Day: 10-20/day; Second Hand Exposure: Yes; Hx Alcohol Use: Yes Alcohol type: other Hx Substance Use: No Preferred Language: Belarusian Communication Ability: Effective [employer] 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 and A total of 10 systems reviewed and were otherwise negative Physical Exam Vital Signs Vital Signs - 24 hr 10/16/20 19:40 10/16/20 20:13 10/16/20 22:13 Temperature 36.7 C Temperature Source Oral Pulse Rate 86 Pulse Rate [Left Finger] 83 78 Respiratory Rate 36 H 20 24 Blood Pressure 155/76 H Blood Pressure [Left Arm] 128/72 145/84 H Blood Pressure Mean 102 Blood Pressure Mean [Left Arm] 90 104 Pulse Oximetry 93 94 93 Oxygen Delivery Method Room Air Sepsis Recent Fever Within 48 Hours No Sepsis New/Unexplained Change in Mental Status No Sepsis Action Taken by Nursing No Action Required Vital signs reviewed. General: Chronically ill -appearing 55 yo male, in no significant distress. Morbidly obese. HEENT: No scleral icterus, PERRLA, neck supple. Atraumatic. Cardiovascular: Regular rate and rhythm, no extra sounds. Pulmonary: Clear to auscultation bilaterally, normal work of breathing. Abdomen: Soft, obese, nontender. Exam is significantly limited due to body habitus. Musculoskeletal: Atraumatic, moderate nonpitting peripheral edema. Chronic venous stasis changes bilaterally. Neurologic: Patient somnolent but arousable. Answers questions quickly but placed his face mask over his eyes. Moves all extremities equally. Exam limited by cooperation. Skin: Warm, dry, venous stasis changes to the bilateral lower extremities as above. Course Administered Medications Acetaminophen (Acetaminophen 325 Mg Tab) 650 mg PO Q4H PRN PRN Reason: Pain or Fever Stop: 11/16/20 01:52 Last Admin: 10/17/20 21:05 Dose: 650 mg Documented by: [id number] Aspirin (Aspirin 81 Mg Ectab) 81 mg PO DAILY [facility] Stop: 11/16/20 08:59 Last Admin: 10/17/20 07:59 Dose: 81 mg Documented by: [id number] Baclofen (Baclofen 10 Mg Tab) 10 mg PO BID [facility] Stop: 11/16/20 08:59 Last Admin: 10/17/20 21:08 Dose: 10 mg Documented by: [id number] Admin: 10/17/20 08:00 Dose: 10 mg Documented by: [id number] Doxycycline Hyclate (Doxycycline Hyclate 100 Mg Cap) 100 mg PO BID [facility] Stop: 10/24/20 08:59 Last Admin: 10/17/20 21:08 Dose: 100 mg Documented by: [id number] Admin: 10/17/20 07:59 Dose: 100 mg Documented by: [id number] Heparin Sodium (Porcine) (Heparin Sod 5,000 Unit/0.5 Ml Vial) 7,500 units SQ Q8 [facility] Stop: 11/16/20 05:59 Last Admin: 10/17/20 21:21 Dose: 7,500 units Documented by: [id number] Admin: 10/17/20 13:53 Dose: 7,500 units Documented by: [id number] Admin: 10/17/20 06:07 Dose: 7,500 units Documented by: [id number] Piperacillin Sod/Tazobactam (Sod 4.5 gm/ Dextrose) 120 mls @ 30 mls/hr IV Q8H [facility]; Protocol Stop: 10/24/20 07:59 Last Infusion: 10/17/20 21:05 Dose: 0 mls/hr Documented by: [id number] Admin: 10/17/20 16:00 Dose: 30 mls/hr Documented by: [id number] Infusion: 10/17/20 12:01 Dose: 0 mls/hr Documented by: [id number] Admin: 10/17/20 08:10 Dose: 30 mls/hr Documented by: [id number] Insulin Human Regular 250 (units/ Sodium Chloride) 250 mls @ 17.3 mls/hr IV .[id number] [facility]; Protocol Stop: 11/16/20 01:52 Last Titration: 10/17/20 22:00 Dose: 17.3 units/hr, 17.3 mls/hr Documented by: [id number] Cosigned by: [id number] Titration: 10/17/20 21:00 Dose: 17.3 units/hr, 17.3 mls/hr Documented by: [id number] Cosigned by: [id number] Titration: 10/17/20 20:05 Dose: 17.3 units/hr, 17.3 mls/hr Documented by: [id number] Cosigned by: [id number] Titration: 10/17/20 19:01 Dose: 17.3 units/hr, 17.3 mls/hr Documented by: [id number] Cosigned by: [id number] Titration: 10/17/20 18:49 Dose: 14.4 units/hr, 14.4 mls/hr Documented by: [id number] Cosigned by: [id number] Titration: 10/17/20 18:06 Dose: 14.4 units/hr, 14.4 mls/hr Documented by: [id number] Cosigned by: [id number] Titration: 10/17/20 17:00 Dose: 10.3 units/hr, 10.3 mls/hr Documented by: [id number] Cosigned by: [id number] Titration: 10/17/20 16:00 Dose: 8.6 units/hr, 8.6 mls/hr Documented by: [id number] Cosigned by: [id number] Titration: 10/17/20 15:00 Dose: 7.2 units/hr, 7.2 mls/hr Documented by: [id number] Cosigned by: [id number] Titration: 10/17/20 13:52 Dose: 6 units/hr, 6 mls/hr Documented by: [id number] Cosigned by: [id number] Titration: 10/17/20 05:55 Dose: 0 units/hr, 0 mls/hr Documented by: [id number] Cosigned by: [id number] Titration: 10/17/20 05:13 Dose: 7.9 units/hr, 7.9 mls/hr Documented by: [id number] Cosigned by: [id number] Titration: 10/17/20 04:14 Dose: 6.6 units/hr, 6.6 mls/hr Documented by: [id number] Cosigned by: [id number] Admin: 10/17/20 03:10 Dose: 5.5 units/hr, 5.5 mls/hr Documented by: [id number] Cosigned by: [id number] Insulin Aspart (Insulin Aspart 100 Units/Ml 3 Ml Pen) 0 units SC ACHS [facility] Stop: 11/16/20 07:29 Last Admin: 10/17/20 21:16 Dose: 15 units Documented by: [id number] Cosigned by: [id number] Admin: 10/17/20 16:40 Dose: 21 units Documented by: [id number] Cosigned by: [id number] Admin: 10/17/20 11:57 Dose: 35 units Documented by: [id number] Cosigned by: [id number] Admin: 10/17/20 08:25 Dose: 15 units Documented by: [id number] Cosigned by: [id number] Insulin Glargine (Insulin Glargine 100 Unit/Ml Vial) 60 units SC BID [facility] Stop: 11/16/20 20:59 Last Admin: 10/17/20 21:13 Dose: 60 units Documented by: [id number] Cosigned by: [id number] Miscellaneous (Androderm~Order Awaiting Action) 1 ea N/A QS [facility] Stop: 11/16/20 07:59 Last Admin: 10/17/20 22:12 Dose: Not Given Documented by: [id number] Admin: 10/17/20 13:38 Dose: Not Given Documented by: [id number] Admin: 10/17/20 07:57 Dose: Not Given Documented by: [id number] Miscellaneous Information (Dc Iv Insulin Infusion 1 Ea Emma) 1 ea N/A Q1H [facility] Stop: 11/16/20 17:59 Last Admin: 10/17/20 23:28 Dose: Not Given Documented by: [id number] Admin: 10/17/20 22:12 Dose: Not Given Documented by: [id number] Admin: 10/17/20 21:50 Dose: Not Given Documented by: [id number] Admin: 10/17/20 21:00 Dose: Not Given Documented by: [id number] Admin: 10/17/20 19:16 Dose: Not Given Documented by: [id number] Admin: 10/17/20 18:51 Dose: Not Given Documented by: [id number] Admin: 10/17/20 16:59 Dose: Not Given Documented by: [id number] Oxybutynin Chloride (Oxybutynin Chloride Xl 5 Mg Tabcr) 10 mg PO DAILY [facility] Stop: 11/16/20 08:59 Last Admin: 10/17/20 08:00 Dose: 10 mg Documented by: [id number] Pantoprazole Sodium (Pantoprazole 40 Mg Tab) 40 mg PO DAILYBB [facility] Stop: 11/16/20 06:29 Last Admin: 10/17/20 06:08 Dose: 40 mg Documented by: [id number] Potassium Chloride (Potassium Chloride Crtab 20 Meq Tabcr) 40 meq PO BID [facility] Stop: 11/16/20 08:59 Last Admin: 10/17/20 21:08 Dose: 40 meq Documented by: [id number] Admin: 10/17/20 07:59 Dose: 40 meq Documented by: [id number] Sertraline HCl (Sertraline Hcl 100 Mg Tablet) 100 mg PO DAILY [facility] Stop: 11/16/20 08:59 Last Admin: 10/17/20 07:59 Dose: 100 mg Documented by: [id number] Spironolactone (Spironolactone 25 Mg Tab) 50 mg PO BID [facility] Stop: 11/16/20 08:59 Last Admin: 10/17/20 21:07 Dose: 50 mg Documented by: [id number] Admin: 10/17/20 07:59 Dose: 50 mg Documented by: [id number] Umeclidinium [place] (Umeclidinium [place] 62.5mcg/Blister 7 Puffs/Inhaler) 1 puffs INH DAILY [facility] Stop: 11/16/20 08:59 Last Admin: 10/17/20 08:01 Dose: 1 puffs Documented by: [id number] Varenicline (Varenicline 1 Mg Tab) 1 mg PO BID [facility] Stop: 11/16/20 08:59 Last Admin: 10/17/20 21:07 Dose: 1 mg Documented by: [id number] Admin: 10/17/20 08:24 Dose: 1 mg Documented by: [id number] Vitamin D (Cholecalciferol 1,000 Units 25 Mcg Tab) 2,000 units PO DAILY [facility] Stop: 11/16/20 08:59 Last Admin: 10/17/20 08:00 Dose: 2,000 units Documented by: [id number] Discontinued Medications Potassium Chloride (K Wilber / Wtr) 10 meq in 100 mls @ 100 mls/hr IV Q1H [facility] Stop: 10/16/20 23:59 Last Infusion: 10/17/20 00:56 Dose: 0 mls/hr Documented by: [id number] Admin: 10/17/20 00:06 Dose: 100 mls/hr Documented by: [id number] Infusion: 10/17/20 00:01 Dose: 0 mls/hr Documented by: [id number] Infusion: 10/16/20 23:40 Dose: 100 mls/hr Documented by: [id number] Infusion: 10/16/20 22:47 Dose: 0 mls/hr Documented by: [id number] Admin: 10/16/20 22:08 Dose: 100 mls/hr Documented by: [id number] Potassium Chloride (K Wilber / Wtr) 10 meq in 100 mls @ 100 mls/hr IV Q1H [facility] Stop: 10/17/20 00:38 Last Infusion: 10/17/20 02:13 Dose: 0 mls/hr Documented by: [id number] Admin: 10/17/20 00:56 Dose: 100 mls/hr Documented by: [id number] Insulin Human Regular 250 (units/ Sodium Chloride) 250 mls @ 5.5 mls/hr IV .Q24H [facility]; Protocol Stop: 11/16/20 01:52 Last Admin: 10/17/20 03:24 Dose: Not Given Documented by: [id number] Piperacillin Sod/Tazobactam (Sod 4.5 gm/ Dextrose) 120 mls @ 240 mls/hr IV ONE ONE; Protocol Stop: 10/17/20 02:44 Last Infusion: 10/17/20 03:25 Dose: 0 mls/hr Documented by: [id number] Admin: 10/17/20 02:46 Dose: 240 mls/hr Documented by: [id number] Potassium Chloride (K Wilber / Wtr) 10 meq in 100 mls @ 100 mls/hr IV Q1H [facility] Stop: 10/17/20 08:59 Last Infusion: 10/17/20 10:46 Dose: 0 mls/hr Documented by: [id number] Admin: 10/17/20 09:02 Dose: 100 mls/hr Documented by: [id number] Infusion: 10/17/20 08:56 Dose: 100 mls/hr Documented by: [id number] Admin: 10/17/20 07:56 Dose: 100 mls/hr Documented by: [id number] Infusion: 10/17/20 07:46 Dose: 100 mls/hr Documented by: [id number] Admin: 10/17/20 06:46 Dose: 100 mls/hr Documented by: [id number] Infusion: 10/17/20 06:42 Dose: 100 mls/hr Documented by: [id number] Admin: 10/17/20 05:42 Dose: 100 mls/hr Documented by: [id number] Potassium Chloride (K Wilber / Wtr) 10 meq in 100 mls @ 100 mls/hr IV Q1H [facility] Stop: 10/17/20 20:44 Last Infusion: 10/17/20 22:41 Dose: 0 mls/hr Documented by: [id number] Admin: 10/17/20 21:07 Dose: 100 mls/hr Documented by: [id number] Infusion: 10/17/20 20:18 Dose: 100 mls/hr Documented by: [id number] Admin: 10/17/20 19:18 Dose: 100 mls/hr Documented by: [id number] Infusion: 10/17/20 19:03 Dose: 100 mls/hr Documented by: [id number] Admin: 10/17/20 18:03 Dose: 100 mls/hr Documented by: [id number] Infusion: 10/17/20 17:55 Dose: 100 mls/hr Documented by: [id number] Admin: 10/17/20 16:55 Dose: 100 mls/hr Documented by: [id number] Insulin Glargine (Insulin Glargine 100 Unit/Ml Vial) 90 units SC NOW ONE Stop: 10/17/20 11:16 Last Admin: 10/17/20 11:56 Dose: 90 units Documented by: [id number] Cosigned by: [id number] Insulin Human Regular (Novolin-R Insulin Per Unit Charge) 10 units IV NOW STA Stop: 10/16/20 21:49 Last Admin: 10/16/20 22:05 Dose: 10 units Documented by: [id number] Cosigned by: [id number] Insulin Human Regular (Novolin-R Insulin Per Unit Charge) 10 units IV NOW STA Stop: 10/16/20 21:49 Last Admin: 10/16/20 22:05 Dose: 10 units Documented by: [id number] Cosigned by: [id number] Miscellaneous (Insulin Protocol Goal Range ) 1 ea N/A NOW ONE Stop: 10/17/20 14:01 Last Admin: 10/17/20 13:53 Dose: 1 ea Documented by: [id number] Perflutren Lipid Microsphere (Perflutren Lipid Microsphere (Definity)) 2 ml IV ONCE ONE Stop: 10/17/20 07:08 Last Admin: 10/17/20 07:08 Dose: 2 ml Documented by: [id number] Potassium Chloride (Potassium Chloride 20 Meq/15 Ml Udc) 40 meq PO NOW STA Stop: 10/16/20 21:48 Last Admin: 10/16/20 22:03 Dose: 40 meq Documented by: [id number] Potassium Chloride (Potassium Chloride Crtab 20 Meq Tabcr) 60 meq PO NOW STA Stop: 10/16/20 23:40 Last Admin: 10/16/20 23:45 Dose: 60 meq Documented by: [id number] Potassium Chloride (Potassium Chloride Crtab 20 Meq Tabcr) 60 meq PO NOW STA Stop: 10/17/20 05:39 Last Admin: 10/17/20 06:08 Dose: 60 meq Documented by: [id number] Medical Decision Making Differential Diagnosis Renal failure, electrolyte abnormality, congestive heart failure, pneumonia, PE, anemia, GI bleed, fluid overload, medication noncompliance, hyperglycemia, HHNK, DKA, sepsis. Medical Records Attestation: I reviewed the patient's medical records. Home Medications Current Medication List: was personally reviewed by me Laboratory Data Attestation: I reviewed the patient's lab results. Result diagrams: 10/17/20 04:50 10/17/20 15:46 Lab Results 10/16/20 10/16/20 10/16/20 Range/Units 20:39 21:40 21:40 WBC 10.89 H (4.8-10.8) K/uL RBC 4.21 L (4.7-6.1) M/uL Hgb 12.7 L (14.0-18.0) g/dL POC Hgb (14.0-18.0) g/dl Hct 38.6 L (42-52) % POC Hct (42-52) % MCV 91.7 (80-100) fL MCH 30.2 (25-34) pg MCHC 32.9 (32-36) g/dL RDW Std Deviation 52.2 H (36.4-46.3) fL RDW Coeff of Orqu[place] 15.6 H (11.5-14.5) % Plt Count 253 (130-400) K/uL MPV 10.8 H (7.4-10.4) fL Immature Gran % (Auto) 0.5 % Neut % (Auto) 78.1 % Lymph % (Auto) 13.5 % Grant % (Auto) 5.9 % Eos % (Auto) 1.7 % Baso % (Auto) 0.3 % Neut # (Auto) 8.51 H (1.4-6.5) K/uL Lymph # (Auto) 1.47 (1.2-3.4) K/uL Grant # (Auto) 0.64 H (0.11-0.59) K/uL Eos # (Auto) 0.19 (0-0.5) K/uL Baso # (Auto) 0.03 (0-0.2) K/uL Immature Gran # (Auto) 0.05 H (0.00-0.02) K/uL ESR (0-14) mm/hr POC Sodium (135-144) mmol/L Sodium 129 L (136-145) mmol/L POC Potassium (3.3-5.0) mmol/L Potassium 2.6 L (3.5-5.1) mmol/L POC Chloride (101-112) mmol/L Chloride 81 L (98-107) mmol/L Carbon Dioxide 39 H (21-32) mmol/L POC Total CO2 (24-31) mmol/L Anion Gap 9.0 (3-11) POC Anion Gap (16-25) mmol/L POC BUN (7-18) mg/dl BUN 26 H (7-18) mg/dl Creatinine 1.35 (0.6-1.4) mg/dl POC Creatinine (0.6-1.3) mg/dl Est Cr Clr Drug Dosing 111.2 ml/min Est GFR ( Amer) 69.0 Est GFR (Non-Af Amer) 59.5 BUN/Creatinine Ratio 19.6 (10-20) Glucose 558 H* (70-99) mg/dl POC Glucose (70-99) mg/dl POC Glucose (other) (70-99) mg/dl Calcium 8.6 (8.5-10.1) mg/dl POC Ioniz Calcium Nicolas (1.12-1.32) mmol/l Total Bilirubin 0.3 (0.2-1) mg/dl AST 22 (15-37) U/L ALT 40 (12-78) U/L Alkaline Phosphatase 211 H (45-117) U/L C-Reactive Protein 2.06 H (0-0.29) mg/dl Total Protein 7.3 (6.4-8.2) gm/dl Albumin 3.0 L (3.4-5.0) gm/dl Globulin 4.3 H (2.5-4.0) gm/dl Albumin/Globulin Ratio 0.7 L (0.9-2) Beta-Hydroxybutyric Acd 1.48 (0.2-2.81) mg/dl TSH 1.920 (0.300-4.500) uIu/ml Specimen Hemolysis Urine Color Yellow Urine Appearance Clear (Clear) Urine pH 7.5 (4.5-7.5) Ur Specific [place] 1.023 (1.000-1.030) Urine Protein Negative (Negative) Urine Glucose (UA) 3+ H (Negative) Urine Ketones Negative (Negative) Urine Blood Negative (Negative) Urine Nitrite Negative (Negative) Urine Bilirubin Negative (Negative) Urine Urobilinogen Negative (Negative) Ur Leukocyte Esterase Negative (Negative) 10/16/20 10/16/20 10/16/20 Range/Units 21:40 21:45 23:06 WBC (4.8-10.8) K/uL RBC (4.7-6.1) M/uL Hgb (14.0-18.0) g/dL POC Hgb 12.6 L (14.0-18.0) g/dl Hct (42-52) % POC Hct 37 L (42-52) % MCV (80-100) fL MCH (25-34) pg MCHC (32-36) g/dL RDW Std Deviation (36.4-46.3) fL RDW Coeff of Orqu[place] (11.5-14.5) % Plt Count (130-400) K/uL MPV (7.4-10.4) fL Immature Gran % (Auto) % Neut % (Auto) % Lymph % (Auto) % Grant % (Auto) % Eos % (Auto) % Baso % (Auto) % Neut # (Auto) (1.4-6.5) K/uL Lymph # (Auto) (1.2-3.4) K/uL Grant # (Auto) (0.11-0.59) K/uL Eos # (Auto) (0-0.5) K/uL Baso # (Auto) (0-0.2) K/uL Immature Gran # (Auto) (0.00-0.02) K/uL ESR 51 H (0-14) mm/hr POC Sodium 128 L (135-144) mmol/L Sodium (136-145) mmol/L POC Potassium 2.5 L* (3.3-5.0) mmol/L Potassium (3.5-5.1) mmol/L POC Chloride 79 L (101-112) mmol/L Chloride (98-107) mmol/L Carbon Dioxide (21-32) mmol/L POC Total CO2 39 H (24-31) mmol/L Anion Gap (3-11) POC Anion Gap 14.0 L (16-25) mmol/L POC BUN 25 H (7-18) mg/dl BUN (7-18) mg/dl Creatinine (0.6-1.4) mg/dl POC Creatinine 1.1 (0.6-1.3) mg/dl Est Cr Clr Drug Dosing ml/min Est GFR ( Amer) Est GFR (Non-Af Amer) BUN/Creatinine Ratio (10-20) Glucose (70-99) mg/dl POC Glucose 503 H* (70-99) mg/dl POC Glucose (other) 563 H* (70-99) mg/dl Calcium (8.5-10.1) mg/dl POC Ioniz Calcium Nicolas 1.07 L (1.12-1.32) mmol/l Total Bilirubin (0.2-1) mg/dl AST (15-37) U/L ALT (12-78) U/L Alkaline Phosphatase (45-117) U/L C-Reactive Protein (0-0.29) mg/dl Total Protein (6.4-8.2) gm/dl Albumin (3.4-5.0) gm/dl Globulin (2.5-4.0) gm/dl Albumin/Globulin Ratio (0.9-2) Beta-Hydroxybutyric Acd (0.2-2.81) mg/dl TSH (0.300-4.500) uIu/ml Specimen Hemolysis Urine Color Urine Appearance (Clear) Urine pH (4.5-7.5) Ur Specific [place] (1.000-1.030) Urine Protein (Negative) Urine Glucose (UA) (Negative) Urine Ketones (Negative) Urine Blood (Negative) Urine Nitrite (Negative) Urine Bilirubin (Negative) Urine Urobilinogen (Negative) Ur Leukocyte Esterase (Negative) Imaging Data Radiologist's Impression: XR toe(s) LT min 2V CLINICAL HISTORY: great toe, osteomyelitis COMPARISON: Left first toe radiographs July 01, 2020. FINDINGS: Alignment of the left first toe is anatomic. There is no acute fracture. No bony erosion is identified to suggest osteomyelitis by radiography. There is left first toe soft tissue swelling. Note is made of moderate osteoarthritis of the left first metatarsophalangeal joint. IMPRESSION: Left first toe soft tissue swelling. No radiographic evidence of osteomyelitis. ACT 112: Negative or not required by law. Electronically signed by: Melchor Reyes M.D. 10/17/2020 9:10 AM Dictated: 10/17/20906Transcribed: 10/17/20906 XR chest 1V portable CLINICAL HISTORY: weakness COMPARISON STUDY: Chest radiograph July 01, 2020. Chest CT April 03, 2020. FINDINGS: Lung volumes are normal. There is no pneumothorax or pleural effusion. There is no consolidation or evidence for pulmonary edema. Pulmonary vascular congestion is unchanged. Cardiomegaly is unchanged. Mediastinal contours are stable. Minimal left basilar opacity favors atelectasis. IMPRESSION: No significant change in appearance of the chest. Cardiomegaly with pulmonary vascular congestion. ACT 112: Negative or not required by law. Electronically signed by: Melchor Reyes M.D. 10/17/2020 9:01 AM Dictated: 10/17/[id number]: 10/17/20899 ECG Data Attestation: I personally reviewed and interpreted this ECG as follows: Indication: + SOB/dyspnea Rate (beats per minute): 83 Rhythm: + normal sinus ECG Intervals/blocks: + Right Bundle branch block and + Prolonged QT (533) ECG ST segments: + Nonspecific ST abnormalities (inferior) ECG Findings: no PACs and no PVCs Blood Pressure Blood Pressure Findings: Elevated blood pressure Blood Pressure Disposition: further management by hospitalist CRYSTAL Johnson This patient was evaluated and appeared to be in no significant distress. The patient was lying flat on his back in the bed. An order for cardiac monitoring was placed and the patient is noted to be in a normal sinus rhythm at 83 bpm. Patient's laboratory work reveals a severe hypokalemia at 2.5 with a glucose of 563. Sodium is 128. Patient does have an elevated sed rate and CRP. X-ray of the left great toe reveals no evidence of bony change consistent with osteomyelitis however there is no ulceration and skin change consistent with a diabetic foot wound. Patient was given 10 units of IV regular insulin and 10 units of subcutaneous regular insulin. P.o. and IV potassium were initiated. Given the patient's fluid overload and hyponatremia, the additional electrolyte abnormalities will be deferred to the hospitalist service for further management. The case was discussed with Dr. Sarai Whatley of the hospitalist service for admission and further management. Patient is aware of the plan and agrees. Impression & Plan Fluid overload, Acute hyponatremia, Severe hyperglycemia due to diabetes mellitus, Morbid obesity with BMI of 70 and over, adult, Acute hypokalemia, Diabetic toe ulcer Discharge Plan Visit Data Chief Complaint: Syncope Stated Complaint: SYNCOPE ED Provider: Selene Hwang Discharge Problem: Fluid overload, Acute hyponatremia, Severe hyperglycemia due to diabetes mellitus, Morbid obesity with BMI of 70 and over, adult, Acute hypokalemia, Diabetic toe ulcer Patient Disposition: Admitted As Inpatient Discharge Instructions Interventions: ED Discharge Assessment Last Done: 10/17/20 01:46 Discharge Problem: Fluid overload Qualifiers: Hypervolemia type: other Qualified Code(s): E87.79 - Other fluid overload Diabetic toe ulcer Qualifiers: Diabetes mellitus type: type 2 Laterality: left Non-pressure ulcer stage: with fat layer exposed Qualified Code(s): E11.621 - Type 2 diabetes mellitus with foot ulcer
[2020-10-17 05:07] LABS: Basophils # (auto) 0.06 K/uL (0-0.2); Basophils % (auto) 0.6 %; Eosinophils # (auto) 0.26 K/uL (0-0.5); Eosinophils % (auto) 2.6 %; Hematocrit (blood only) 39.8 % (42-52); Hemoglobin 13.1 g/dL (14.0-18.0); Immature Granulocytes # (auto) 0.04 K/uL (0.00-0.02); Immature Granulocytes % (auto) 0.4 %; Lymphocytes # (auto) 1.56 K/uL (1.2-3.4); Lymphocytes % (auto) 15.7 %; Mean Corpuscular Hemoglobin 30.6 pg (25-34); Mean Corpuscular Hgb Conc 32.9 g/dL (32-36); Mean Platelet Volume 10.8 fL (7.4-10.4); Monocytes # (auto) 0.49 K/uL (0.11-0.59); Monocytes % (auto) 4.9 %; Neutrophils # (auto) 7.53 K/uL (1.4-6.5); Neutrophils % (auto) 75.8 %; Platelet Count 277 K/uL (130-400); RDW Coefficient of Variation 15.6 % (11.5-14.5); RDW Standard Deviation 52.8 fL (36.4-46.3); Red Blood Count 4.28 M/uL (4.7-6.1); White Blood Count 9.94 K/uL (4.8-10.8)
[2020-10-17 05:36] LABS: BUN Creatinine Ratio 20.9 (10-20); Blood Urea Nitrogen 23 mg/dl (7-18); Calcium 9.1 mg/dl (8.5-10.1); Carbon Dioxide 41 mmol/L (21-32); Chloride 84 mmol/L (98-107); Creatinine Clr Calc Pharmacy 135.4 ml/min; Est GFR (African American) 88.4; Est GFR (Non-African American) 76.2; Glucose 387 mg/dl (70-99); Magnesium 2.5 mg/dl (1.8-2.4); Potassium 2.9 mmol/L (3.5-5.1); Sodium 128 mmol/L (136-145)
[2020-10-17 05:37] LABS: Troponin I < 0.015 ng/ml (0-0.045)
[2020-10-17] MEDS ORDERED: POTASSIUM CHLORIDE CRTAB 20 MEQ TABCR PO STA ×2 (05:38→23:47)
[2020-10-17 05:47] LABS: Beta-Hydroxybutyrate 1.04 mg/dl (0.2-2.81)
[2020-10-17] MEDS: HEPARIN SOD 5,000 UNIT/0.5 ML VIAL SQ SCH ×3 (06:07→21:21)
[2020-10-17] MEDS: PANTOprazole 40 MG TAB PO SCH (06:08)
[2020-10-17 06:56] LABS: Estimated Average Glucose 266 mg/dl; Hemoglobin A1C 10.9 % (4.5-5.6)
[2020-10-17] MEDS ORDERED: PERFLUTREN LIPID MICROSPHERE (DEFINITY) IV ONE (07:07)
[2020-10-17] MEDS ORDERED: INSULIN ASPART 100 UNITS/ML 3 ML PEN SC SCH ×2 (07:30)
[2020-10-17] MEDS: POTASSIUM CHLORIDE CRTAB 20 MEQ TABCR PO SCH ×2 (07:59→21:08)
[2020-10-17] MEDS: SPIRONOLACTONE 25 MG TAB PO SCH ×2 (07:59→21:07)
[2020-10-17] MEDS: ASPIRIN 81 MG ECTAB PO SCH (07:59)
[2020-10-17] MEDS: SERTRALINE HCL 100 MG TABLET PO SCH (07:59)
[2020-10-17] MEDS: DOXYCYCLINE HYCLATE 100 MG CAP PO SCH ×2 (07:59→21:08)
[2020-10-17] MEDS: BACLOFEN 10 MG TAB PO SCH ×2 (08:00→21:08)
[2020-10-17] MEDS: OXYBUTYNIN CHLORIDE XL 5 MG TABCR PO SCH (08:00)
[2020-10-17] MEDS: CHOLECALCIFEROL 1,000 UNITS 25 MCG TAB PO SCH (08:00)
[2020-10-17] MEDS: UMECLIDINIUM BROMIDE 62.5MCG/BLISTER 7 PUFFS/INHALER INH SCH (08:01)
[2020-10-17] MEDS: PIPERACILLIN/TAZOBACTAM 4.5 GM in DEXTROSE 5% 100 ML IV SCH ×3 (08:10→23:59)
[2020-10-17] MEDS: VARENICLINE 1 MG TAB PO SCH ×2 (08:24→21:07)
[2020-10-17] MEDS: INSULIN ASPART 100 UNITS/ML 3 ML PEN SC SCH ×4 (08:25→21:16)
--- NOTE | 2020-10-17 09:03 | XRay Report ---
XR chest 1V portable CLINICAL HISTORY: weakness COMPARISON STUDY: Chest radiograph July 01, 2020. Chest CT April 03, 2020. FINDINGS: Lung volumes are normal. There is no pneumothorax or pleural effusion. There is no consolid ation or evidence for pulmonary edema. Pulmonary vascular congestion is unchanged. Cardiomegaly is un changed. Mediastinal contours are stable. Minimal left basilar opacity favors atelectasis. IMPRESSION: No significant change in appearance of the chest. Cardiomegaly with pulmonary vascular c ongestion. ACT 112: Negative or not required by law. Electronically signed by: Melchor Reyes M.D. 10/17/2020 9:01 AM
--- NOTE | 2020-10-17 09:12 | XRay Report ---
XR toe(s) LT min 2V CLINICAL HISTORY: great toe, osteomyelitis COMPARISON: Left first toe radiographs July 01, 2020. FINDINGS: Alignment of the left first toe is anatomic. There is no acute fracture. No bony erosion i s identified to suggest osteomyelitis by radiography. There is left first toe soft tissue swelling. N ote is made of moderate osteoarthritis of the left first metatarsophalangeal joint. IMPRESSION: Left first toe soft tissue swelling. No radiographic evidence of osteomyelitis. ACT 112: Negative or not required by law. Electronically signed by: Melchor Reyes M.D. 10/17/2020 9:10 AM
--- NOTE | 2020-10-17 11:11 | Pharmacy Report ---
Pharmacy Glycemic Short Note 2 - Date of Service October 17, 2020 - Glycemic Short BSG Results (Last 24 hours): 10/16/20 10/16/20 10/16/20 21:40 21:45 23:06 Glucose 558 H* POC Glucose 503 H* POC Glucose (other) 563 H* 10/17/20 10/17/20 10/17/20 00:25 02:14 04:10 Glucose POC Glucose 537 H* 421 H* 405 H* POC Glucose (other) 10/17/20 10/17/20 10/17/20 04:50 05:08 07:27 Glucose 387 H* POC Glucose 387 H* 332 H* POC Glucose (other) OUTPATIENT ANTIDIABETIC REGIMEN: * Dulaglutide 1.5mg SQ weekly * Glargine 63 units SQ BID * NovoLog 10 units SQ AC * Metformin 2,000mg PO daily * A1c = 10.9% on 10/17/20 ASSESSMENT: * 55yo T2DM male with poor outpatient control per recent A1c * Pt is known to pharmacy from previous admissions/glycemic consults and alesha el utilizes ~ 230 units of insulin per day * Pt admitted with severe hyperglycemia secondary to 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 Non-compliance with outpatient regimen may be contributing as well. * Pt initiated on IV insulin infusion on admission - but infusion needed held due to low K+. Replacing K+ via IV riders and will resume IV insulin infusion when K+ > 3.3 mmol/L. * Pt is tolerating PO and ordered a diet - will administer SQ insulin for all CHO consumed. * Concern for losing steady state with high dose of basal insulin. Lantus not given last evening since IV insulin infusion was started. Will give 90 units SQ Lantus this morning (60 units for AM dose and 30 units (1/2 of missed dose last evening)). * Will resume the insulin infusion rico since absorption of insulin is erratic with significant edema. PLAN FOR INPATIENT GLYCEMIC CONTROL: * Hold outpatient oral diabetes medications & GLP-1 RA * Resume IV insulin infusion per protocol when K+ > 3.3 * Goal range 140-180 mg/dl * Basal insulin * Lantus 90 units SQ x 1 dose this AM then * Lantus 60 units SQ BID * Bolus insulin * NovoLog per scale ACHS or Q6hrs while NPO * Goal Range: Low 110 mg/dL - High 140 mg/dL * Correction Factor: 8 mg/dL/unit * Nutritional / Prandial insulin per carb ratio of 1 unit per 2 grams CHO consumed PLAN FOR DISCHARGE: * TBD
--- NOTE | 2020-10-17 11:12 | Cardiology Consultation ---
Date of Consultation October 17, 2020 Assessment & Plan (1) Acute on chronic right-sided congestive heart failure: (2) Pickwickian syndrome: (3) Acute diastolic congestive heart failure: (4) Prolonged QT interval: (5) Hypokalemia: (6) Morbid obesity: Case discussed with internal medicine. Patient will require diuresis and support with BiPAP when sleeping. Discussed importance of compliance with current medical therapies and BiPAP with patient at length. He voiced understanding. A.m. dose of torsemide held to allow for potassium supplementation. Hold metolazone. Administer dose of torsemide pending review of repeat basic metabolic panel. Aldactone 50 mg twice daily restarted. Follow daily weight, fluid balance, GFR, and electrolytes. Prolonged QT in the setting of hypokalemia. Repeat ECG. Monitor telemetry. Avoid medications with potential to prolong the QT interval. History of Present Illness Reason for Consultation: CHF, weight gain Requesting Physician: Dr. Betancourt Attending Physician: Christiane Betancourt MD History of Present Illness 55-year-old patient presented from home due to generalized sensation of unwellness and hyperglycemia. Carries history of morbid obesity, obstructive sleep apnea, noncompliance with BiPAP, diabetes, chronic diastolic heart failure, chronic right-sided heart failure, hypertension, venous insufficiency, and lymphedema. Patient admits to noncompliance with medical therapies. Reports 10 pound weight gain at home. Weight is up approximately 15 pounds from his most recent office visit. He is somnolent however arousable to verbal stimuli. Chronic chest discomfort unchanged. ECG on admission demonstrates sinus rhythm with a right bundle branch block and prolonged QT. Significant hypokalemia noted on admission. A.m. dose of torsemide held today. Allergies Allergy/AdvReac Type Severity Reaction Status Date / Time vancomycin Allergy Intermediate Hives Verified 10/16/20 22:39 hydrocodone [From Vicodin] Allergy Mild Rash Verified 10/16/20 22:39 Home Medications Medication Instructions Recorded Confirmed Type acetaminophen 1,000 mg PO Q6H PRN 04/03/19 10/16/20 History albuterol sulfate [Ventolin HFA] 2 puff INHALATION Q4H PRN 04/03/19 10/16/20 History aspirin 81 mg PO DAILY 04/03/19 10/16/20 History pantoprazole 40 mg PO DAILYBB 04/03/19 10/16/20 History sennosides [senna] 17.2 mg PO DAILY PRN 04/03/19 10/16/20 History cholecalciferol (vitamin D3) 2,000 unit PO DAILY 08/16/19 10/16/20 History Chantix 1 mg PO BID 04/02/20 10/16/20 History torsemide 80 mg PO BID 04/08/20 10/16/20 History Androderm 4 mg TRANSDERMAL DAILY 04/22/20 10/16/20 History Trulicity 1.5 mg SUBCUT WK 04/22/20 10/16/20 History ammonium lactate 1 applic TOPICAL BID PRN 07/01/20 10/16/20 History insulin aspart U-100 [Novolog 10 unit SUBCUT AC 07/01/20 10/16/20 History Flexpen U-100 Insulin] metformin 2,000 mg PO DAILY 07/01/20 10/16/20 History metolazone 2.5 mg PO 3XWK 07/01/20 10/16/20 History nystatin [Nystop] 1 applic TOPICAL TID PRN 07/01/20 10/16/20 History insulin glargine [Lantus Solostar 63 unit SUBCUT BID #0 ml 07/08/20 10/16/20 Rx U-100 Insulin] potassium chloride 40 meq PO BID #0 tab 07/08/20 10/16/20 Rx Spiriva with HandiHaler 18 mcg INHALATION DAILY 10/16/20 10/16/20 History baclofen 10 mg PO BID 10/16/20 10/16/20 History oxybutynin chloride [Ditropan XL] 10 mg PO DAILY 10/16/20 10/16/20 History sertraline [Zoloft] 100 mg PO DAILY 10/16/20 10/16/20 History spironolactone 50 mg PO BID 10/16/20 10/16/20 History sulfamethoxazole-trimethoprim 1 tab PO BID 10/16/20 10/16/20 History tramadol 50 mg PO Q8H PRN 10/16/20 10/16/20 History Patient History Medical History (Updated 10/17/20 @ 11:10 by Mihir Jones DO) Asthma Bulging lumbar disc Bulging of cervical intervertebral disc Chronic back pain Chronic right-sided CHF (congestive heart failure) COPD (chronic obstructive pulmonary disease) Diabetes GERD with apnea Gout Hyperlipidemia Hypertension Morbid obesity with BMI of 50.0-59.9, adult Myocardial Infarction ? 10 yrs ago Osteoarthritis RBBB Recurrent cellulitis Seizure Possible seizure in 2016 evaluation normal per patient , no problems since Sleep apnea bipap with 2L oxygen Thyroid nodule just monitoring Tobacco abuse Surgical History History of cardiac cath ? 10yrs ago--no stents History of cholecystectomy History of phacoemulsification of cataract of left eye with intraocular lens implantation History of repair of anterior cruciate ligament of right knee History of toe surgery right big toe History of tooth extraction Family History Aunt Family history of diabetes mellitus Mother Diabetes Father Cancer of kidney Heart disease Other No family history of adverse response to anesthesia Social History Smoking Status: Never smoker Tobacco Type: Cigarettes Years Smoked: 27; Cigarettes Per Day: 10-20/day; Second Hand Exposure: Yes; Hx Alcohol Use: Yes Alcohol type: other Hx Substance Use: No Preferred Language: Maldivian Communication Ability: Effective Artist'S Model Required: No Beliefs That Will Affect Care: None marital status: Current Living Situation: Spouse Current Living Situation Comment: Lives with and 2 kids Feels Safe at Home: Yes Assistive Devices: None Review of Systems Review of Systems: All systems reviewed & are unremarkable except as noted in HPI & below Physical Exam Constitutional: + ill appearing and + morbidly obese; no acute distress Respiratory: Auscultation: lungs clear to auscultation bilaterally and + diminished lung sounds; no crackles, no rales, no rhonchi and no wheezes Cardiovascular: Rate/Rhythm: regular rate and regular rhythm Heart Sounds: normal S1 and normal S2; no murmur Vessels: no JVD and no carotid bruit Extremities: + edema (2+ B/L LE edema with stasis changes) Gastrointestinal (Abdomen): Inspection/Auscultation: abdomen normal to inspection and normal bowel sounds; abdomen not distended Percussion/Palpation: abdomen soft; abdomen nontender, no guarding and abdomen not rigid Neurologic: moves all extremities; no focal motor deficits Speech / Cognition: normal speech Motor/Sensory: no tremor Results & Data ([facility]) Vital Signs (Past 12 Hours) Vital Signs Temp Pulse Resp BP Pulse Ox 10/17/20 07:43 36.8 C 71 18 176/93 H 91 10/17/20 03:44 36.3 C L 69 20 150/87 H 92 10/17/20 01:55 36.5 C 73 18 189/75 H 92 10/17/20 01:45 76 20 130/78 92 10/17/20 00:18 77 20 137/96 93
[2020-10-17] MEDS ORDERED: INSULIN GLARGINE 100 UNIT/ML VIAL SC ONE (11:15)
[2020-10-17 12:08] LABS: BUN Creatinine Ratio 17.6 (10-20); Blood Urea Nitrogen 19 mg/dl (7-18); Calcium 9.1 mg/dl (8.5-10.1); Carbon Dioxide 40 mmol/L (21-32); Chloride 86 mmol/L (98-107); Est GFR (African American) 90.3; Est GFR (Non-African American) 77.9; Glucose 385 mg/dl (70-99); Potassium 3.6 mmol/L (3.5-5.1); Sodium 128 mmol/L (136-145); Troponin I < 0.015 ng/ml (0-0.045)
[2020-10-17] MEDS: DC IV INSULIN INFUSION 1 EA DEVI SCH ×7 (16:59→23:28)
--- NOTE | 2020-10-17 17:04 | Hospitalist Progress Note ---
Date of Service October 17, 2020 Assessment & Plan (1) Acute on chronic right-sided congestive heart failure: Due to poor medication adherence Discussed patient's case with community engagement leader. Echo reviewed Continue spironolactone. Morning dose of torsemide held. Patient severely hypokalemic. Has been aggressively repleted. Potassium improved to 3.6. Torsemide resumed Monitor I's and O's (2) Prolonged QT interval: (3) Hypokalemia: Prolonged QT likely due to hypokalemia. Hypokalemia being aggressively repleted Continue to monitor potassium levels Continue telemetry monitoring (4) Diabetes: (5) Acute hyperglycemia: Hyperglycemia due to poor medication adherence. Not in DKA Hemoglobin A1c 10.9 Insulin drip initially held due to hypokalemia. Resumed once potassium came up to 3.6 We will continue to monitor potassium every 4 hours for now and continue aggressive IV and p.o. repletion Provided basic diabetes education. Will get coding educator consult when patient is more awake (6) Morbid obesity: (7) SIDRA treated with BiPAP: Counselled patient on need for BiPAP BiPAP ordered. However, patient has been refusing to use our BiPAP, stating his will bring his. Patient will need aggressive weight management -conservative and possibly surgical to help manage his comorbidities as well. (8) Injury of toe, left, superficial, infected: Wound care consult Continue antibiotics for now (9) Depression: Continue home medication (10) DVT prophylaxis: Continue heparin subcu Admission and Anticipated Discharge Date Admission Date: October 16, 2020 Subjective Patient seen and examined earlier. Patient drowsy but arousable. Detailed history as documented in HPI from this morning Patient acknowledges not being adherent with dietary and fluid intake over the past few days with a Thanksgiving celebrations. Acknowledges poor compliance with medications Reports increased weight gain about 15 pounds Reports chest pressure and shortness of breath with exertion. Reports he has not been adherent with his BiPAP machine for the past 2 weeks Denied any fevers, chills, nausea, vomiting Denies abdominal pain, diarrhea Report left great toe pain after trauma Reports chronic leg swelling Physical Exam Constitutional: no acute distress Morbidly obese, drowsy but arousable Eyes: PERRL, conjunctivae normal, anicteric sclerae ENMT: external ear and nose normal, oropharynx normal Neck: + thick neck Respiratory: normal respiratory effort; no respiratory distress Auscultation: + diminished lung sounds; no crackles Cardiovascular: Rate/Rhythm: regular rate and regular rhythm Heart Sounds: normal S1 and normal S2 Bilateral 2+ lower extremity edema with chronic stasis changes Gastrointestinal (Abdomen): normal bowel sounds, soft, nontender, no hepatosplenomegaly Musculoskeletal: Left great toe tenderness, swelling and erythema Neurologic: PERRL, EOMI, accommodation nl, no face palsy, no dysarthria Drowsy but arousable, no focal deficits Psychiatric: Drowsy but arousable and oriented to person place and time Results & Data Results & Data ([facility]) Vital Signs (Past 12 Hours) Vital Signs Temp Pulse Resp BP Pulse Ox 10/17/20 15:15 36.6 C 67 20 180/77 H 91 10/17/20 11:43 36.7 C 68 18 168/96 H 92 10/17/20 07:43 36.8 C 71 18 176/93 H 91 Laboratory Results Laboratory Results - last 24 hr 10/16/20 10/16/20 10/16/20 20:39 21:40 21:40 WBC 10.89 H RBC 4.21 L Hgb 12.7 L POC Hgb Hct 38.6 L POC Hct MCV 91.7 MCH 30.2 MCHC 32.9 RDW Std Deviation 52.2 H RDW Coeff of [place] 15.6 H Plt Count 253 MPV 10.8 H Immature Gran % (Auto) 0.5 Neut % (Auto) 78.1 Lymph % (Auto) 13.5 [place] % (Auto) 5.9 Eos % (Auto) 1.7 Baso % (Auto) 0.3 Neut # (Auto) 8.51 H Lymph # (Auto) 1.47 [place] # (Auto) 0.64 H Eos # (Auto) 0.19 Baso # (Auto) 0.03 Immature Gran # (Auto) 0.05 H ESR POC Sodium Sodium 129 L POC Potassium Potassium 2.6 L POC Chloride Chloride 81 L Carbon Dioxide 39 H POC Total CO2 Anion Gap 9.0 POC Anion Gap POC BUN BUN 26 H Creatinine 1.35 POC Creatinine Est Cr Clr Drug Dosing 111.2 Est GFR ( Amer) 69.0 Est GFR (Non-Af Amer) 59.5 BUN/Creatinine Ratio 19.6 Glucose 558 H* POC Glucose POC Glucose (other) Estimat Average Glucose Hemoglobin A1c Calcium 8.6 POC Ioniz Calcium Nicolas Magnesium Total Bilirubin 0.3 AST 22 ALT 40 Alkaline Phosphatase 211 H Troponin I C-Reactive Protein 2.06 H NT-Pro-B Natriuret Pep Total Protein 7.3 Albumin 3.0 L Globulin 4.3 H Albumin/Globulin Ratio 0.7 L Beta-Hydroxybutyric Acd 1.48 TSH 1.920 Specimen Hemolysis Urine Color Yellow Urine Appearance Clear Urine pH 7.5 Ur Specific [place] 1.023 Urine Protein Negative Urine Glucose (UA) 3+ H Urine Ketones Negative Urine Blood Negative Urine Nitrite Negative Urine Bilirubin Negative Urine Urobilinogen Negative Ur Leukocyte Esterase Negative SARS-CoV-2 Ag (Rapid) 10/16/20 10/16/20 10/16/20 21:40 21:45 23:06 WBC RBC Hgb POC Hgb 12.6 L Hct POC Hct 37 L MCV MCH MCHC RDW Std Deviation RDW Coeff of [place] Plt Count MPV Immature Gran % (Auto) Neut % (Auto) Lymph % (Auto) [place] % (Auto) Eos % (Auto) Baso % (Auto) Neut # (Auto) Lymph # (Auto) [place] # (Auto) Eos # (Auto) Baso # (Auto) Immature Gran # (Auto) ESR 51 H POC Sodium 128 L Sodium POC Potassium 2.5 L* Potassium POC Chloride 79 L Chloride Carbon Dioxide POC Total CO2 39 H Anion Gap POC Anion Gap 14.0 L POC BUN 25 H BUN Creatinine POC Creatinine 1.1 Est Cr Clr Drug Dosing Est GFR ( Amer) Est GFR (Non-Af Amer) BUN/Creatinine Ratio Glucose POC Glucose 503 H* POC Glucose (other) 563 H* Estimat Average Glucose Hemoglobin A1c Calcium POC Ioniz Calcium Nicolas 1.07 L Magnesium Total Bilirubin AST ALT Alkaline Phosphatase Troponin I C-Reactive Protein NT-Pro-B Natriuret Pep Total Protein Albumin Globulin Albumin/Globulin Ratio Beta-Hydroxybutyric Acd TSH Specimen Hemolysis Urine Color Urine Appearance Urine pH Ur Specific [place] Urine Protein Urine Glucose (UA) Urine Ketones Urine Blood Urine Nitrite Urine Bilirubin Urine Urobilinogen Ur Leukocyte Esterase SARS-CoV-2 Ag (Rapid) 10/17/20 10/17/20 10/17/20 00:25 00:44 02:14 WBC RBC Hgb POC Hgb Hct POC Hct MCV MCH MCHC RDW Std Deviation RDW Coeff of [place] Plt Count MPV Immature Gran % (Auto) Neut % (Auto) Lymph % (Auto) [place] % (Auto) Eos % (Auto) Baso % (Auto) Neut # (Auto) Lymph # (Auto) [place] # (Auto) Eos # (Auto) Baso # (Auto) Immature Gran # (Auto) ESR POC Sodium Sodium POC Potassium Potassium POC Chloride Chloride Carbon Dioxide POC Total CO2 Anion Gap POC Anion Gap POC BUN BUN Creatinine POC Creatinine Est Cr Clr Drug Dosing Est GFR ( Amer) Est GFR (Non-Af Amer) BUN/Creatinine Ratio Glucose POC Glucose 537 H* 421 H* POC Glucose (other) Estimat Average Glucose Hemoglobin A1c Calcium POC Ioniz Calcium Nicolas Magnesium Total Bilirubin AST ALT Alkaline Phosphatase Troponin I C-Reactive Protein NT-Pro-B Natriuret Pep Total Protein Albumin Globulin Albumin/Globulin Ratio Beta-Hydroxybutyric Acd TSH Specimen Hemolysis Urine Color Urine Appearance Urine pH Ur Specific [place] Urine Protein Urine Glucose (UA) Urine Ketones Urine Blood Urine Nitrite Urine Bilirubin Urine Urobilinogen Ur Leukocyte Esterase SARS-CoV-2 Ag (Rapid) Negative 10/17/20 10/17/20 10/17/20 04:10 04:50 04:50 WBC 9.94 RBC 4.28 L Hgb 13.1 L POC Hgb Hct 39.8 L POC Hct MCV 93.0 MCH 30.6 MCHC 32.9 RDW Std Deviation 52.8 H RDW Coeff of [place] 15.6 H Plt Count 277 MPV 10.8 H Immature Gran % (Auto) 0.4 Neut % (Auto) 75.8 Lymph % (Auto) 15.7 [place] % (Auto) 4.9 Eos % (Auto) 2.6 Baso % (Auto) 0.6 Neut # (Auto) 7.53 H Lymph # (Auto) 1.56 [place] # (Auto) 0.49 Eos # (Auto) 0.26 Baso # (Auto) 0.06 Immature Gran # (Auto) 0.04 H ESR POC Sodium Sodium 128 L POC Potassium Potassium 2.9 L POC Chloride Chloride 84 L Carbon Dioxide 41 H* POC Total CO2 Anion Gap 3.0 POC Anion Gap POC BUN BUN 23 H Creatinine 1.10 POC Creatinine Est Cr Clr Drug Dosing 135.4 Est GFR ( Amer) 88.4 Est GFR (Non-Af Amer) 76.2 BUN/Creatinine Ratio 20.9 H Glucose 387 H* POC Glucose 405 H* POC Glucose (other) Estimat Average Glucose Hemoglobin A1c Calcium 9.1 POC Ioniz Calcium Nicolas Magnesium 2.5 H Total Bilirubin AST ALT Alkaline Phosphatase Troponin I < 0.015 C-Reactive Protein NT-Pro-B Natriuret Pep Total Protein Albumin Globulin Albumin/Globulin Ratio Beta-Hydroxybutyric Acd 1.04 TSH Specimen Hemolysis Urine Color Urine Appearance Urine pH Ur Specific [place] Urine Protein Urine Glucose (UA) Urine Ketones Urine Blood Urine Nitrite Urine Bilirubin Urine Urobilinogen Ur Leukocyte Esterase SARS-CoV-2 Ag (Rapid) 10/17/20 10/17/20 10/17/20 04:50 05:08 07:27 WBC RBC Hgb POC Hgb Hct POC Hct MCV MCH MCHC RDW Std Deviation RDW Coeff of [place] Plt Count MPV Immature Gran % (Auto) Neut % (Auto) Lymph % (Auto) [place] % (Auto) Eos % (Auto) Baso % (Auto) Neut # (Auto) Lymph # (Auto) [place] # (Auto) Eos # (Auto) Baso # (Auto) Immature Gran # (Auto) ESR POC Sodium Sodium POC Potassium Potassium POC Chloride Chloride Carbon Dioxide POC Total CO2 Anion Gap POC Anion Gap POC BUN BUN Creatinine POC Creatinine Est Cr Clr Drug Dosing Est GFR ( Amer) Est GFR (Non-Af Amer) BUN/Creatinine Ratio Glucose POC Glucose 387 H* 332 H* POC Glucose (other) Estimat Average Glucose 266 Hemoglobin A1c 10.9 H Calcium POC Ioniz Calcium Nicolas Magnesium Total Bilirubin AST ALT Alkaline Phosphatase Troponin I C-Reactive Protein NT-Pro-B Natriuret Pep Total Protein Albumin Globulin Albumin/Globulin Ratio Beta-Hydroxybutyric Acd TSH Specimen Hemolysis Urine Color Urine Appearance Urine pH Ur Specific [place] Urine Protein Urine Glucose (UA) Urine Ketones Urine Blood Urine Nitrite Urine Bilirubin Urine Urobilinogen Ur Leukocyte Esterase SARS-CoV-2 Ag (Rapid) 10/17/20 10/17/20 10/17/20 08:59 11:32 11:32 WBC RBC Hgb POC Hgb Hct POC Hct MCV MCH MCHC RDW Std Deviation RDW Coeff of [place] Plt Count MPV Immature Gran % (Auto) Neut % (Auto) Lymph % (Auto) [place] % (Auto) Eos % (Auto) Baso % (Auto) Neut # (Auto) Lymph # (Auto) [place] # (Auto) Eos # (Auto) Baso # (Auto) Immature Gran # (Auto) ESR POC Sodium Sodium 128 L POC Potassium Potassium Cancelled 3.6 D POC Chloride Chloride 86 L Carbon Dioxide 40 H POC Total CO2 Anion Gap 2.0 L POC Anion Gap POC BUN BUN 19 H Creatinine 1.08 POC Creatinine Est Cr Clr Drug Dosing 138.0 Est GFR ( Amer) 90.3 Est GFR (Non-Af Amer) 77.9 BUN/Creatinine Ratio 17.6 Glucose 385 H* POC Glucose POC Glucose (other) Estimat Average Glucose Hemoglobin A1c Calcium 9.1 POC Ioniz Calcium Nicolas Magnesium Total Bilirubin AST ALT Alkaline Phosphatase Troponin I Cancelled < 0.015 C-Reactive Protein NT-Pro-B Natriuret Pep 84 Total Protein Albumin Globulin Albumin/Globulin Ratio Beta-Hydroxybutyric Acd TNP TSH Specimen Hemolysis Urine Color Urine Appearance Urine pH Ur Specific [place] Urine Protein Urine Glucose (UA) Urine Ketones Urine Blood Urine Nitrite Urine Bilirubin Urine Urobilinogen Ur Leukocyte Esterase SARS-CoV-2 Ag (Rapid) 10/17/20 10/17/20 10/17/20 11:42 15:01 15:46 WBC RBC Hgb POC Hgb Hct POC Hct MCV MCH MCHC RDW Std Deviation RDW Coeff of [place] Plt Count MPV Immature Gran % (Auto) Neut % (Auto) Lymph % (Auto) [place] % (Auto) Eos % (Auto) Baso % (Auto) Neut # (Auto) Lymph # (Auto) [place] # (Auto) Eos # (Auto) Baso # (Auto) Immature Gran # (Auto) ESR POC Sodium Sodium POC Potassium Potassium 3.2 L POC Chloride Chloride Carbon Dioxide POC Total CO2 Anion Gap POC Anion Gap POC BUN BUN Creatinine POC Creatinine Est Cr Clr Drug Dosing Est GFR ( Amer) Est GFR (Non-Af Amer) BUN/Creatinine Ratio Glucose POC Glucose 381 H* 362 H* POC Glucose (other) Estimat Average Glucose Hemoglobin A1c Calcium POC Ioniz Calcium Nicolas Magnesium Total Bilirubin AST ALT Alkaline Phosphatase Troponin I C-Reactive Protein NT-Pro-B Natriuret Pep Total Protein Albumin Globulin Albumin/Globulin Ratio Beta-Hydroxybutyric Acd TSH Specimen Hemolysis Urine Color Urine Appearance Urine pH Ur Specific [place] Urine Protein Urine Glucose (UA) Urine Ketones Urine Blood Urine Nitrite Urine Bilirubin Urine Urobilinogen Ur Leukocyte Esterase SARS-CoV-2 Ag (Rapid) 10/17/20 16:05 WBC RBC Hgb POC Hgb Hct POC Hct MCV MCH MCHC RDW Std Deviation RDW Coeff of [place] Plt Count MPV Immature Gran % (Auto) Neut % (Auto) Lymph % (Auto) [place] % (Auto) Eos % (Auto) Baso % (Auto) Neut # (Auto) Lymph # (Auto) [place] # (Auto) Eos # (Auto) Baso # (Auto) Immature Gran # (Auto) ESR POC Sodium Sodium POC Potassium Potassium POC Chloride Chloride Carbon Dioxide POC Total CO2 Anion Gap POC Anion Gap POC BUN BUN Creatinine POC Creatinine Est Cr Clr Drug Dosing Est GFR ( Amer) Est GFR (Non-Af Amer) BUN/Creatinine Ratio Glucose POC Glucose 350 H* POC Glucose (other) Estimat Average Glucose Hemoglobin A1c Calcium POC Ioniz Calcium Nicolas Magnesium Total Bilirubin AST ALT Alkaline Phosphatase Troponin I C-Reactive Protein NT-Pro-B Natriuret Pep Total Protein Albumin Globulin Albumin/Globulin Ratio Beta-Hydroxybutyric Acd TSH Specimen Hemolysis Urine Color Urine Appearance Urine pH Ur Specific [place] Urine Protein Urine Glucose (UA) Urine Ketones Urine Blood Urine Nitrite Urine Bilirubin Urine Urobilinogen Ur Leukocyte Esterase SARS-CoV-2 Ag (Rapid)
[2020-10-17] MEDS: INSULIN GLARGINE 100 UNIT/ML VIAL SC SCH (21:13)
--- NOTE | 2020-10-17 22:31 | Electrocardiogram Report ---
Test Reason : Blood Pressure : / mmHG Vent. Rate : 083 BPM Atrial Rate : 083 BPM P-R Int : 160 ms QRS Dur : 170 ms QT Int : 454 ms P-R-T Axes : 054 -18 024 degrees QTc Int : 533 ms Normal sinus rhythm Right bundle branch block Minimal voltage criteria for LVH, may be normal variant Abnormal ECG When compared with ECG of 03-JUL-2020 06:40, Nonspecific T wave abnormality has replaced inverted T waves in Inferior leads Confirmed by Juan Carmichael ([id number]) on 10/17/2020 10:31:11 PM Referred By: REFERRED SELF Confirmed By:Juan Carmichael
[2020-10-17 23:40] LABS: Potassium 3.4 mmol/L (3.5-5.1)
[2020-10-18] MEDS: DC IV INSULIN INFUSION 1 EA DEVI SCH ×10 (00:10→10:34)
[2020-10-18] MEDS: INSULIN REGULAR 250 UNITS in SODIUM CHLORIDE 0.9% 247.5 ML IV SCH ×2 (01:14→18:13)
[2020-10-18 06:09] LABS: Hematocrit (blood only) 40.5 % (42-52); Hemoglobin 13.2 g/dL (14.0-18.0); Mean Corpuscular Hemoglobin 30.4 pg (25-34); Mean Corpuscular Hgb Conc 32.6 g/dL (32-36); Mean Corpuscular Volume 93.3 fL (80-100); Platelet Count 271 K/uL (130-400); RDW Coefficient of Variation 15.8 % (11.5-14.5); RDW Standard Deviation 53.9 fL (36.4-46.3); Red Blood Count 4.34 M/uL (4.7-6.1); White Blood Count 10.66 K/uL (4.8-10.8)
[2020-10-18] MEDS: PANTOprazole 40 MG TAB PO SCH (06:10)
[2020-10-18] MEDS: HEPARIN SOD 5,000 UNIT/0.5 ML VIAL SQ SCH ×3 (06:10→21:13)
[2020-10-18 06:42] LABS: BUN Creatinine Ratio 23.3 (10-20); Calcium 9.4 mg/dl (8.5-10.1); Creatinine Clr Calc Pharmacy 165.6 ml/min; Est GFR (African American) 112.6; Est GFR (Non-African American) 97.2; Magnesium 2.6 mg/dl (1.8-2.4); Phosphorus 3.5 mg/dl (2.5-4.9); Potassium 3.5 mmol/L (3.5-5.1)
[2020-10-18] MEDS: BACLOFEN 10 MG TAB PO SCH ×2 (07:56→21:12)
[2020-10-18] MEDS: POTASSIUM CHLORIDE CRTAB 20 MEQ TABCR PO SCH ×2 (07:56→21:11)
[2020-10-18] MEDS: SPIRONOLACTONE 25 MG TAB PO SCH ×2 (07:56→21:10)
[2020-10-18] MEDS: VARENICLINE 1 MG TAB PO SCH ×2 (07:56→21:11)
[2020-10-18] MEDS: ASPIRIN 81 MG ECTAB PO SCH (07:57)
[2020-10-18] MEDS: CHOLECALCIFEROL 1,000 UNITS 25 MCG TAB PO SCH (07:57)
[2020-10-18] MEDS: SERTRALINE HCL 100 MG TABLET PO SCH (07:57)
[2020-10-18] MEDS: TORSEMIDE 20 MG TAB PO SCH ×2 (07:57→16:56)
[2020-10-18] MEDS: OXYBUTYNIN CHLORIDE XL 5 MG TABCR PO SCH (07:57)
[2020-10-18] MEDS: DOXYCYCLINE HYCLATE 100 MG CAP PO SCH ×2 (07:58→21:12)
[2020-10-18] MEDS: INSULIN GLARGINE 100 UNIT/ML VIAL SC SCH ×2 (08:02→21:09)
[2020-10-18] MEDS: UMECLIDINIUM BROMIDE 62.5MCG/BLISTER 7 PUFFS/INHALER INH SCH (08:02)
[2020-10-18] MEDS: INSULIN ASPART 100 UNITS/ML 3 ML PEN SC SCH ×4 (08:06→21:15)
[2020-10-18] MEDS: PIPERACILLIN/TAZOBACTAM 4.5 GM in DEXTROSE 5% 100 ML IV SCH (08:14)
[2020-10-18] MEDS ORDERED: metOLazone 2.5 MG TABLET PO SCH (09:00)
--- NOTE | 2020-10-18 11:21 | Hospitalist Progress Note ---
Date of Service October 18, 2020 Assessment & Plan (1) Acute on chronic right-sided congestive heart failure: Due to poor medication adherence Discussed patient's case with appointment setter. Echo reviewed Continue spironolactone and torsemide Keep holding metolazone Monitor I's and O's Corporate Treasurer recommendations appreciated (2) Prolonged QT interval: (3) Hypokalemia: Prolonged QT on admission likely due to hypokalemia. Hypokalemia been aggressively repleted. Now improved to 3.5 Repeat EKG to monitor Continue to monitor potassium levels Continue telemetry monitoring (4) Diabetes: (5) Acute hyperglycemia: Hyperglycemia due to poor medication adherence. Not in DKA Hemoglobin A1c 10.9 Continue insulin drip. Plan to wean off to sq insulin therapy Monitor Potassium Counselled patient again about need for glycemic control (6) Morbid obesity: (7) SIDRA treated with BiPAP: Counselled patient again on need for BiPAP Patient will need aggressive weight management -conservative and possibly surgical to help manage his comorbidities as well. (8) Injury of toe, left, superficial, infected: Wound care Injury does not appear to be obviously infected at this time He does have poor foot care, dystrophic nail Does have erythema around nail from reported trauma and some skin excoriation Educated on proper foot care for a diabetic He claims he has a podiatry appointment next week No other sign of systemic infection or osteomyelitis on XR Deescalate antibiotics to po doxycycline (9) Depression: Continue home medication (10) DVT prophylaxis: Continue heparin subcu Admission and Anticipated Discharge Date Admission Date: October 16, 2020 Subjective Patient seen and examined Per RN, patient barely wore the BIPAP overnight This morning, patient denied any chest pain, shortness of breath at rest. Still reports some pain on left great toe Denied any abd pain, nausea, vomiting, diarrhea Denied any dysuria, freq, urgency Per RN, patient was able to get off insulin earlier but had to be resumed when blood glucose started going up. Patient was reported to be eating snacks from bag Physical Exam Constitutional: no acute distress Eyes: PERRL, conjunctivae normal, anicteric sclerae ENMT: external ear and nose normal, oropharynx normal Neck: + thick neck Respiratory: normal respiratory effort; no respiratory distress Auscultation: + diminished lung sounds; no crackles Cardiovascular: Rate/Rhythm: regular rate and regular rhythm Heart Sounds: normal S1 and normal S2 Gastrointestinal (Abdomen): normal bowel sounds, soft, nontender, no hepatosplenomegaly Skin: Bilateral leg edema 2+ with chronic stasis changes. Left great toe tenderness, swelling, erythema and some skin abrasions. No slough or drainage noted. Dystrophic nails Neurologic: PERRL, EOMI, accommodation nl, no face palsy, no dysarthria Results & Data Results & Data ([facility]) Vital Signs (Past 12 Hours) Vital Signs Temp Pulse Resp BP BP Pulse Ox 10/18/20 11:03 36.8 C 72 20 122/56 L 93 10/18/20 07:33 36.3 C L 69 23 181/75 H 92 10/18/20 03:01 36.9 C 72 16 178/46 H 92 10/18/20 00:17 36.5 C 72 20 143/78 H 93 Laboratory Results Laboratory Results - last 24 hr 10/17/20 10/17/20 10/17/20 11:32 11:32 11:42 WBC RBC Hgb Hct MCV MCH MCHC RDW Std Deviation RDW Coeff of [place] Plt Count MPV Sodium 128 L Potassium Cancelled 3.6 D Chloride 86 L Carbon Dioxide 40 H Anion Gap 2.0 L BUN 19 H Creatinine 1.08 Est Cr Clr Drug Dosing 138.0 Est GFR ( Amer) 90.3 Est GFR (Non-Af Amer) 77.9 BUN/Creatinine Ratio 17.6 Glucose 385 H* POC Glucose 381 H* Calcium 9.1 Phosphorus Magnesium Troponin I Cancelled < 0.015 Beta-Hydroxybutyric Acd TNP Specimen Hemolysis 10/17/20 10/17/20 10/17/20 15:01 15:46 16:05 WBC RBC Hgb Hct MCV MCH MCHC RDW Std Deviation RDW Coeff of [place] Plt Count MPV Sodium Potassium 3.2 L Chloride Carbon Dioxide Anion Gap BUN Creatinine Est Cr Clr Drug Dosing Est GFR ( Amer) Est GFR (Non-Af Amer) BUN/Creatinine Ratio Glucose POC Glucose 362 H* 350 H* Calcium Phosphorus Magnesium Troponin I Beta-Hydroxybutyric Acd Specimen Hemolysis 10/17/20 10/17/20 10/17/20 17:00 18:04 18:57 WBC RBC Hgb Hct MCV MCH MCHC RDW Std Deviation RDW Coeff of [place] Plt Count MPV Sodium Potassium Chloride Carbon Dioxide Anion Gap BUN Creatinine Est Cr Clr Drug Dosing Est GFR ( Amer) Est GFR (Non-Af Amer) BUN/Creatinine Ratio Glucose POC Glucose 286 H 326 H* 287 H Calcium Phosphorus Magnesium Troponin I Beta-Hydroxybutyric Acd Specimen Hemolysis 10/17/20 10/17/20 10/17/20 20:00 20:57 21:59 WBC RBC Hgb Hct MCV MCH MCHC RDW Std Deviation RDW Coeff of [place] Plt Count MPV Sodium Potassium Chloride Carbon Dioxide Anion Gap BUN Creatinine Est Cr Clr Drug Dosing Est GFR ( Amer) Est GFR (Non-Af Amer) BUN/Creatinine Ratio Glucose POC Glucose 243 H 225 H 214 H Calcium Phosphorus Magnesium Troponin I Beta-Hydroxybutyric Acd Specimen Hemolysis 10/17/20 10/17/20 10/18/20 23:03 23:57 01:08 WBC RBC Hgb Hct MCV MCH MCHC RDW Std Deviation RDW Coeff of [place] Plt Count MPV Sodium Potassium 3.4 L Chloride Carbon Dioxide Anion Gap BUN Creatinine Est Cr Clr Drug Dosing Est GFR ( Amer) Est GFR (Non-Af Amer) BUN/Creatinine Ratio Glucose POC Glucose 218 H 224 H Calcium Phosphorus Magnesium Troponin I Beta-Hydroxybutyric Acd Specimen Hemolysis 10/18/20 10/18/20 10/18/20 02:05 02:56 04:05 WBC RBC Hgb Hct MCV MCH MCHC RDW Std Deviation RDW Coeff of [place] Plt Count MPV Sodium Potassium Chloride Carbon Dioxide Anion Gap BUN Creatinine Est Cr Clr Drug Dosing Est GFR ( Amer) Est GFR (Non-Af Amer) BUN/Creatinine Ratio Glucose POC Glucose 199 H 153 H 135 H Calcium Phosphorus Magnesium Troponin I Beta-Hydroxybutyric Acd Specimen Hemolysis 10/18/20 10/18/20 10/18/20 04:55 05:49 05:49 WBC 10.66 RBC 4.34 L Hgb 13.2 L Hct 40.5 L MCV 93.3 MCH 30.4 MCHC 32.6 RDW Std Deviation 53.9 H RDW Coeff of [place] 15.8 H Plt Count 271 MPV 11.0 H Sodium 133 L Potassium 3.5 Chloride 93 L Carbon Dioxide 38 H Anion Gap 2.0 L BUN 21 H Creatinine 0.90 Est Cr Clr Drug Dosing 165.6 Est GFR ( Amer) 112.6 Est GFR (Non-Af Amer) 97.2 BUN/Creatinine Ratio 23.3 H Glucose 117 H POC Glucose 126 H Calcium 9.4 Phosphorus 3.5 Magnesium 2.6 H Troponin I Beta-Hydroxybutyric Acd Specimen Hemolysis 10/18/20 10/18/20 10/18/20 06:09 07:00 08:03 WBC RBC Hgb Hct MCV MCH MCHC RDW Std Deviation RDW Coeff of [place] Plt Count MPV Sodium Potassium Chloride Carbon Dioxide Anion Gap BUN Creatinine Est Cr Clr Drug Dosing Est GFR ( Amer) Est GFR (Non-Af Amer) BUN/Creatinine Ratio Glucose POC Glucose 104 H 155 H 181 H Calcium Phosphorus Magnesium Troponin I Beta-Hydroxybutyric Acd Specimen Hemolysis 10/18/20 10/18/20 09:04 10:11 WBC RBC Hgb Hct MCV MCH MCHC RDW Std Deviation RDW Coeff of [place] Plt Count MPV Sodium Potassium Chloride Carbon Dioxide Anion Gap BUN Creatinine Est Cr Clr Drug Dosing Est GFR ( Amer) Est GFR (Non-Af Amer) BUN/Creatinine Ratio Glucose POC Glucose 238 H 256 H Calcium Phosphorus Magnesium Troponin I Beta-Hydroxybutyric Acd Specimen Hemolysis
--- NOTE | 2020-10-18 12:22 | Cardiology Progress Note ---
Date of Service October 18, 2020 Assessment & Plan (1) Acute on chronic right-sided congestive heart failure: Patient more alert today, glucose is trending towards better control. Potassium now 3.5. Patient's weight up 15 to 16 pounds with fluid retention visible. Torsemide resumed this morning. Patient may require IV diuretics this admission if not prompt response to oral diuretics now metabolically improved (2) Pickwickian syndrome: BiPAP use essential once again urged ongoing compliance (3) Acute diastolic congestive heart failure: (4) Prolonged QT interval: Improved today, may need to consider reduction in Zoloft dose. Would avoid Chantix (5) Hypokalemia: Improving continue supplementation orally. (6) Morbid obesity: Admission and Anticipated Discharge Date Admission Date: October 16, 2020 Subjective Patient was seen and examined, chart, medications, telemetry reviewed. Blood sugar still variable but trending towards better control. Very mild diuresis since admission. No chest pains, dizziness or lightheadedness. More alert today Did attempt to use BiPAP last night admits to noncompliance at home Review of Systems Review of Systems: All systems reviewed & are unremarkable except as noted in HPI & below Physical Exam Constitutional: + morbidly obese; no acute distress Respiratory: Auscultation: lungs clear to auscultation bilaterally and + diminished lung sounds; no crackles, no rales, no rhonchi and no wheezes Cardiovascular: Rate/Rhythm: regular rate and regular rhythm Heart Sounds: normal S1 and normal S2; no murmur Vessels: no JVD and no carotid bruit Extremities: + edema (2+ B/L LE edema with stasis changes) Gastrointestinal (Abdomen): Inspection/Auscultation: abdomen normal to inspection and normal bowel sounds; abdomen not distended Percussion/Palpation: abdomen soft; abdomen nontender, no guarding and abdomen not rigid Neurologic: moves all extremities; no focal motor deficits Speech / Cognition: normal speech Motor/Sensory: no tremor Results & Data ([facility]) Vital Signs (Past 12 Hours) Vital Signs Temp Pulse Resp BP BP Pulse Ox 10/18/20 11:03 36.8 C 72 20 122/56 L 93 10/18/20 07:33 36.3 C L 69 23 181/75 H 92 10/18/20 03:01 36.9 C 72 16 178/46 H 92 Laboratory Results Laboratory Results - last 24 hr 11/27/20 11/27/20 11/27/20 11:32 15:01 15:46 WBC RBC Hgb Hct MCV MCH MCHC RDW Std Deviation RDW Coeff of [place] Plt Count MPV Sodium Potassium 3.2 L Chloride Carbon Dioxide Anion Gap BUN Creatinine Est Cr Clr Drug Dosing Est GFR ( Amer) Est GFR (Non-Af Amer) BUN/Creatinine Ratio Glucose POC Glucose 362 H* Calcium Phosphorus Magnesium Beta-Hydroxybutyric Acd TNP Specimen Hemolysis 10/17/20 10/17/20 10/17/20 16:05 17:00 18:04 WBC RBC Hgb Hct MCV MCH MCHC RDW Std Deviation RDW Coeff of [place] Plt Count MPV Sodium Potassium Chloride Carbon Dioxide Anion Gap BUN Creatinine Est Cr Clr Drug Dosing Est GFR ( Amer) Est GFR (Non-Af Amer) BUN/Creatinine Ratio Glucose POC Glucose 350 H* 286 H 326 H* Calcium Phosphorus Magnesium Beta-Hydroxybutyric Acd Specimen Hemolysis 10/17/20 10/17/20 10/17/20 18:57 20:00 20:57 WBC RBC Hgb Hct MCV MCH MCHC RDW Std Deviation RDW Coeff of [place] Plt Count MPV Sodium Potassium Chloride Carbon Dioxide Anion Gap BUN Creatinine Est Cr Clr Drug Dosing Est GFR ( Amer) Est GFR (Non-Af Amer) BUN/Creatinine Ratio Glucose POC Glucose 287 H 243 H 225 H Calcium Phosphorus Magnesium Beta-Hydroxybutyric Acd Specimen Hemolysis 10/17/20 10/17/20 10/17/20 21:59 23:03 23:57 WBC RBC Hgb Hct MCV MCH MCHC RDW Std Deviation RDW Coeff of [place] Plt Count MPV Sodium Potassium 3.4 L Chloride Carbon Dioxide Anion Gap BUN Creatinine Est Cr Clr Drug Dosing Est GFR ( Amer) Est GFR (Non-Af Amer) BUN/Creatinine Ratio Glucose POC Glucose 214 H 218 H Calcium Phosphorus Magnesium Beta-Hydroxybutyric Acd Specimen Hemolysis 10/18/20 10/18/20 10/18/20 01:08 02:05 02:56 WBC RBC Hgb Hct MCV MCH MCHC RDW Std Deviation RDW Coeff of [place] Plt Count MPV Sodium Potassium Chloride Carbon Dioxide Anion Gap BUN Creatinine Est Cr Clr Drug Dosing Est GFR ( Amer) Est GFR (Non-Af Amer) BUN/Creatinine Ratio Glucose POC Glucose 224 H 199 H 153 H Calcium Phosphorus Magnesium Beta-Hydroxybutyric Acd Specimen Hemolysis 10/18/20 10/18/20 10/18/20 04:05 04:55 05:49 WBC 10.66 RBC 4.34 L Hgb 13.2 L Hct 40.5 L MCV 93.3 MCH 30.4 MCHC 32.6 RDW Std Deviation 53.9 H RDW Coeff of [place] 15.8 H Plt Count 271 MPV 11.0 H Sodium Potassium Chloride Carbon Dioxide Anion Gap BUN Creatinine Est Cr Clr Drug Dosing Est GFR ( Amer) Est GFR (Non-Af Amer) BUN/Creatinine Ratio Glucose POC Glucose 135 H 126 H Calcium Phosphorus Magnesium Beta-Hydroxybutyric Acd Specimen Hemolysis 10/18/20 10/18/20 10/18/20 05:49 06:09 07:00 WBC RBC Hgb Hct MCV MCH MCHC RDW Std Deviation RDW Coeff of [place] Plt Count MPV Sodium 133 L Potassium 3.5 Chloride 93 L Carbon Dioxide 38 H Anion Gap 2.0 L BUN 21 H Creatinine 0.90 Est Cr Clr Drug Dosing 165.6 Est GFR ( Amer) 112.6 Est GFR (Non-Af Amer) 97.2 BUN/Creatinine Ratio 23.3 H Glucose 117 H POC Glucose 104 H 155 H Calcium 9.4 Phosphorus 3.5 Magnesium 2.6 H Beta-Hydroxybutyric Acd Specimen Hemolysis 10/18/20 10/18/20 10/18/20 08:03 09:04 10:11 WBC RBC Hgb Hct MCV MCH MCHC RDW Std Deviation RDW Coeff of [place] Plt Count MPV Sodium Potassium Chloride Carbon Dioxide Anion Gap BUN Creatinine Est Cr Clr Drug Dosing Est GFR ( Amer) Est GFR (Non-Af Amer) BUN/Creatinine Ratio Glucose POC Glucose 181 H 238 H 256 H Calcium Phosphorus Magnesium Beta-Hydroxybutyric Acd Specimen Hemolysis 10/18/20 10/18/20 11:02 12:04 WBC RBC Hgb Hct MCV MCH MCHC RDW Std Deviation RDW Coeff of [place] Plt Count MPV Sodium Potassium Chloride Carbon Dioxide Anion Gap BUN Creatinine Est Cr Clr Drug Dosing Est GFR ( Amer) Est GFR (Non-Af Amer) BUN/Creatinine Ratio Glucose POC Glucose 245 H 319 H* Calcium Phosphorus Magnesium Beta-Hydroxybutyric Acd Specimen Hemolysis
--- NOTE | 2020-10-18 12:42 | Pharmacy Report ---
Pharmacy Glycemic Short Note 2 - Date of Service October 18, 2020 - Glycemic Short BSG Results (Last 24 hours): 10/17/20 10/17/20 10/17/20 15:01 16:05 17:00 Glucose POC Glucose 362 H* 350 H* 286 H 10/17/20 10/17/20 10/17/20 18:04 18:57 20:00 Glucose POC Glucose 326 H* 287 H 243 H 10/17/20 10/17/20 10/17/20 20:57 21:59 23:57 Glucose POC Glucose 225 H 214 H 218 H 10/18/20 10/18/20 10/18/20 01:08 02:05 02:56 Glucose POC Glucose 224 H 199 H 153 H 10/18/20 10/18/20 10/18/20 04:05 04:55 05:49 Glucose 117 H POC Glucose 135 H 126 H 10/18/20 10/18/20 10/18/20 06:09 07:00 08:03 Glucose POC Glucose 104 H 155 H 181 H 10/18/20 10/18/20 10/18/20 09:04 10:11 11:02 Glucose POC Glucose 238 H 256 H 245 H 10/18/20 12:04 Glucose POC Glucose 319 H* OUTPATIENT ANTIDIABETIC REGIMEN: * Dulaglutide 1.5mg SQ weekly * Glargine 63 units SQ BID * NovoLog 10 units SQ AC * Metformin 2,000mg PO daily * A1c = 10.9% on 10/17/20 ASSESSMENT: 10/18: * Patient continues on insulin drip this morning - had initially been on hold x 1 hr but then restarted at 7.7 units/hr. Previously had been running up to 25 units/hr. * BSGs continue to trending upward this morning. Adjusted set CR to 1.5 with lunch. Tightened from 2 this AM * Plan to increase basal insulin for HS to help with drip transition. Current parameters based upon previous admission. PLAN FOR INPATIENT GLYCEMIC CONTROL: * Hold outpatient oral diabetes medications & GLP-1 RA * Continue insulin gtt: * Goal range 140-180 mg/dl * Basal insulin * Lantus 60 this AM * Increased to 65 units BID starting tonight * Bolus insulin - per insulin calc * NovoLog per scale ACHS or Q6hrs while NPO * Goal Range: Low 110 mg/dL - High 140 mg/dL * Correction Factor: -- mg/dL/unit * Nutritional / Prandial insulin per carb ratio of 1 unit per 1.5 grams CHO consumed PLAN FOR DISCHARGE: * TBD
[2020-10-18 16:18] LABS: Potassium 3.4 mmol/L (3.5-5.1)
[2020-10-18] MEDS ORDERED: INSULIN GLARGINE 100 UNIT/ML VIAL SC SCH (21:00)
[2020-10-18] MEDS: LIDOCAINE 5% 1 PATCH TD SCH (21:08)
[2020-10-19] MEDS: HEPARIN SOD 5,000 UNIT/0.5 ML VIAL SQ SCH ×3 (06:09→20:35)
[2020-10-19] MEDS: PANTOprazole 40 MG TAB PO SCH (06:10)
[2020-10-19] MEDS: INSULIN REGULAR 250 UNITS in SODIUM CHLORIDE 0.9% 247.5 ML IV SCH (07:09)
[2020-10-19] MEDS: INSULIN GLARGINE 100 UNIT/ML VIAL SC SCH ×2 (07:34→20:33)
[2020-10-19 08:21] LABS: Hematocrit (blood only) 39.6 % (42-52); Hemoglobin 12.6 g/dL (14.0-18.0); Mean Corpuscular Hemoglobin 30.1 pg (25-34); Mean Corpuscular Hgb Conc 31.8 g/dL (32-36); Mean Corpuscular Volume 94.5 fL (80-100); Mean Platelet Volume 10.6 fL (7.4-10.4); Platelet Count 195 K/uL (130-400); RDW Coefficient of Variation 16.5 % (11.5-14.5); Red Blood Count 4.19 M/uL (4.7-6.1); White Blood Count 8.58 K/uL (4.8-10.8)
--- NOTE | 2020-10-19 08:21 | Electrocardiogram Report ---
Test Reason : Blood Pressure : / mmHG Vent. Rate : 072 BPM Atrial Rate : 072 BPM P-R Int : 158 ms QRS Dur : 160 ms QT Int : 456 ms P-R-T Axes : 058 -09 021 degrees QTc Int : 499 ms Normal sinus rhythm Right bundle branch block Abnormal ECG When compared with ECG of 16-OCT-2020 19:48, No significant change was found Confirmed by Tio Sheets ([id number] on 10/19/2020 8:21:01 AM Referred By: REFERRED SELF Confirmed By:Tio Sheets
[2020-10-19] MEDS: INSULIN ASPART 100 UNITS/ML 3 ML PEN SC SCH ×4 (08:41→20:32)
[2020-10-19] MEDS: SPIRONOLACTONE 25 MG TAB PO SCH ×2 (08:42→20:36)
[2020-10-19] MEDS: VARENICLINE 1 MG TAB PO SCH ×2 (08:42→20:35)
[2020-10-19] MEDS: FUROSEMIDE 80 MG in SYRINGE 0 ML IV SCH ×2 (08:42→16:42)
[2020-10-19] MEDS: POTASSIUM CHLORIDE CRTAB 20 MEQ TABCR PO SCH ×2 (08:42→20:34)
[2020-10-19] MEDS: DOXYCYCLINE HYCLATE 100 MG CAP PO SCH ×2 (08:43→20:34)
[2020-10-19] MEDS: OXYBUTYNIN CHLORIDE XL 5 MG TABCR PO SCH (08:43)
[2020-10-19] MEDS: ASPIRIN 81 MG ECTAB PO SCH (08:43)
[2020-10-19] MEDS: SERTRALINE HCL 100 MG TABLET PO SCH (08:43)
[2020-10-19] MEDS: CHOLECALCIFEROL 1,000 UNITS 25 MCG TAB PO SCH (08:43)
[2020-10-19] MEDS: BACLOFEN 10 MG TAB PO SCH ×2 (08:43→20:39)
[2020-10-19] MEDS: UMECLIDINIUM BROMIDE 62.5MCG/BLISTER 7 PUFFS/INHALER INH SCH (08:44)
[2020-10-19] MEDS: LIDOCAINE 5% 1 PATCH TD SCH (08:44)
[2020-10-19 09:38] LABS: BUN Creatinine Ratio 21.8 (10-20); Calcium 9.3 mg/dl (8.5-10.1); Creatinine Clr Calc Pharmacy 157.6 ml/min; Est GFR (African American) 106.9; Est GFR (Non-African American) 92.2; Potassium 3.3 mmol/L (3.5-5.1)
--- NOTE | 2020-10-19 09:41 | Pharmacy Report ---
Pharmacy Glycemic Short Note 2 - Date of Service October 19, 2020 - Glycemic Short BSG Results (Last 24 hours): 10/18/20 10/18/20 10/18/20 10:11 11:02 12:04 Glucose POC Glucose 256 H 245 H 319 H* 10/18/20 10/18/20 10/18/20 13:22 14:34 15:04 Glucose POC Glucose 215 H 178 H 164 H 10/18/20 10/18/20 10/18/20 16:07 17:11 17:56 Glucose POC Glucose 132 H 137 H 190 H 10/18/20 10/18/20 10/18/20 18:59 20:04 21:03 Glucose POC Glucose 155 H 117 H 125 H 10/18/20 10/18/20 10/19/20 22:04 22:59 00:16 Glucose POC Glucose 176 H 203 H 171 H 10/19/20 10/19/20 10/19/20 01:09 02:09 03:04 Glucose POC Glucose 167 H 169 H 188 H 10/19/20 10/19/20 10/19/20 04:13 05:07 06:04 Glucose POC Glucose 146 H 145 H 144 H 10/19/20 10/19/20 10/19/20 07:17 08:11 08:38 Glucose Cancelled POC Glucose 141 H 174 H OUTPATIENT ANTIDIABETIC REGIMEN: * Dulaglutide 1.5mg SQ weekly * Glargine 63 units SQ BID * NovoLog 10 units SQ AC * Metformin 2,000mg PO daily * A1c = 10.9% on 10/17/20 ASSESSMENT: 10/19: * Patient continuing on insulin drip this AM - rates decreasing ~2 units/hr. Drip stable x 3 checks. BSGs much improving now. * Will have nurse give Lantus now, and put drip on hold. Plan to cover AM check with SQ insulin * Novolog added ACHS. Plan to continue same basal insulin for now 10/18: * Patient continues on insulin drip this morning - had initially been on hold x 1 hr but then restarted at 7.7 units/hr. Previously had been running up to 25 units/hr. * BSGs continue to trending upward this morning. Adjusted set CR to 1.5 with lunch. Tightened from 2 this AM * Plan to increase basal insulin for HS to help with drip transition. Current parameters based upon previous admission. PLAN FOR INPATIENT GLYCEMIC CONTROL: * Hold outpatient oral diabetes medications & GLP-1 RA * Hold insulin drip this AM 10/19 * Basal insulin * Lantus 65 units bid * Bolus insulin * NovoLog per scale ACHS or Q6hrs while NPO * Goal Range: Low 110 mg/dL - High 140 mg/dL * Correction Factor: 7 mg/dL/unit * Nutritional / Prandial insulin per carb ratio of 1 unit per 1.5 grams CHO consumed PLAN FOR DISCHARGE: * TBD
[2020-10-19] MEDS ORDERED: POTASSIUM CHLORIDE CRTAB 20 MEQ TABCR PO STA (10:45)
--- NOTE | 2020-10-19 10:51 | Hospitalist Progress Note ---
Date of Service October 19, 2020 Assessment & Plan (1) Acute on chronic right-sided congestive heart failure: Due to poor medication adherence Discussed patient's case with house admin. Echo reviewed Continue spironolactone Give iv lasix 80mg bid Keep holding metolazone I/O in the past 24h ([id number]: net [id number]) Continue to Monitor I's and O's Open Developer Operator recommendations appreciated (2) Prolonged QT interval: (3) Hypokalemia: Prolonged QT on admission likely due to hypokalemia. Hypokalemia being agressively repleted Repeat EKG show improved QTc (from 533 to 499) Continue to monitor potassium levels Continue telemetry monitoring (4) Diabetes: (5) Acute hyperglycemia: Hyperglycemia due to poor medication adherence. Not in DKA Hemoglobin A1c 10.9 Required insulin drip. Now off this AM. Continue sq insulin Monitor Potassium Counselled again on need for better glycemic control Consult DM educator (6) Morbid obesity: (7) SIDRA treated with BiPAP: Counselled patient again on need for BiPAP Patient will need aggressive weight management -conservative and possibly surgical to help manage his comorbidities as well. (8) Injury of toe, left, superficial, infected: Wound care Injury does not appear to be obviously infected at this time He does have poor foot care, dystrophic nail Does have erythema around nail from reported trauma and some skin excoriation DM foot care education done He claims he has a podiatry appointment this coming week No other sign of systemic infection or osteomyelitis on XR Continue doxycycline (9) Depression: Continue home medication (10) DVT prophylaxis: Continue heparin subcu Admission and Anticipated Discharge Date Admission Date: October 16, 2020 Subjective Patient seen and examined Patient has no complaints this morning Was drowsy but arousable Off insulin drip for now Physical Exam Constitutional: no acute distress Eyes: PERRL, conjunctivae normal, anicteric sclerae ENMT: external ear and nose normal, oropharynx normal Neck: + thick neck Respiratory: normal respiratory effort; no respiratory distress Auscultation: + diminished lung sounds; no crackles Cardiovascular: Rate/Rhythm: regular rate and regular rhythm Heart Sounds: normal S1 and normal S2 Gastrointestinal (Abdomen): normal bowel sounds, soft, nontender, no hepatosplenomegaly Musculoskeletal: 2+ bilateral pedal edema with stasis changes Left great toe erythema and skin excoriation, tender Neurologic: PERRL, EOMI, accommodation nl, no face palsy, no dysarthria Drowsy but arousable Results & Data Results & Data ([facility]) Vital Signs (Past 12 Hours) Vital Signs Temp Pulse Pulse Pulse Resp BP Pulse Ox 10/19/20 08:20 60 10/19/20 08:00 36.3 C L 72 18 131/74 92 10/19/20 04:22 36.4 C L 71 20 116/65 94 10/18/20 23:44 36.7 C 74 20 167/68 H 95 Laboratory Results Laboratory Results - last 24 hr 10/18/20 10/18/20 10/18/20 11:02 12:04 13:22 WBC RBC Hgb Hct MCV MCH MCHC RDW Std Deviation RDW Coeff of [place] Plt Count MPV Sodium Potassium Chloride Carbon Dioxide Anion Gap BUN Creatinine Est Cr Clr Drug Dosing Est GFR ( Amer) Est GFR (Non-Af Amer) BUN/Creatinine Ratio Glucose POC Glucose 245 H 319 H* 215 H Calcium Specimen Hemolysis 10/18/20 10/18/20 10/18/20 14:34 15:04 15:37 WBC RBC Hgb Hct MCV MCH MCHC RDW Std Deviation RDW Coeff of [place] Plt Count MPV Sodium Potassium 3.4 L Chloride Carbon Dioxide Anion Gap BUN Creatinine Est Cr Clr Drug Dosing Est GFR ( Amer) Est GFR (Non-Af Amer) BUN/Creatinine Ratio Glucose POC Glucose 178 H 164 H Calcium Specimen Hemolysis 10/18/20 10/18/20 10/18/20 16:07 17:11 17:56 WBC RBC Hgb Hct MCV MCH MCHC RDW Std Deviation RDW Coeff of [place] Plt Count MPV Sodium Potassium Chloride Carbon Dioxide Anion Gap BUN Creatinine Est Cr Clr Drug Dosing Est GFR ( Amer) Est GFR (Non-Af Amer) BUN/Creatinine Ratio Glucose POC Glucose 132 H 137 H 190 H Calcium Specimen Hemolysis 10/18/20 10/18/20 10/18/20 18:59 20:04 21:03 WBC RBC Hgb Hct MCV MCH MCHC RDW Std Deviation RDW Coeff of [place] Plt Count MPV Sodium Potassium Chloride Carbon Dioxide Anion Gap BUN Creatinine Est Cr Clr Drug Dosing Est GFR ( Amer) Est GFR (Non-Af Amer) BUN/Creatinine Ratio Glucose POC Glucose 155 H 117 H 125 H Calcium Specimen Hemolysis 10/18/20 10/18/20 10/19/20 22:04 22:59 00:16 WBC RBC Hgb Hct MCV MCH MCHC RDW Std Deviation RDW Coeff of [place] Plt Count MPV Sodium Potassium Chloride Carbon Dioxide Anion Gap BUN Creatinine Est Cr Clr Drug Dosing Est GFR ( Amer) Est GFR (Non-Af Amer) BUN/Creatinine Ratio Glucose POC Glucose 176 H 203 H 171 H Calcium Specimen Hemolysis 10/19/20 10/19/20 10/19/20 01:09 02:09 03:04 WBC RBC Hgb Hct MCV MCH MCHC RDW Std Deviation RDW Coeff of [place] Plt Count MPV Sodium Potassium Chloride Carbon Dioxide Anion Gap BUN Creatinine Est Cr Clr Drug Dosing Est GFR ( Amer) Est GFR (Non-Af Amer) BUN/Creatinine Ratio Glucose POC Glucose 167 H 169 H 188 H Calcium Specimen Hemolysis 10/19/20 10/19/20 10/19/20 04:13 05:07 06:04 WBC RBC Hgb Hct MCV MCH MCHC RDW Std Deviation RDW Coeff of [place] Plt Count MPV Sodium Potassium Chloride Carbon Dioxide Anion Gap BUN Creatinine Est Cr Clr Drug Dosing Est GFR ( Amer) Est GFR (Non-Af Amer) BUN/Creatinine Ratio Glucose POC Glucose 146 H 145 H 144 H Calcium Specimen Hemolysis 10/19/20 10/19/20 10/19/20 07:17 08:11 08:11 WBC 8.58 RBC 4.19 L Hgb 12.6 L Hct 39.6 L MCV 94.5 MCH 30.1 MCHC 31.8 L RDW Std Deviation 56.0 H RDW Coeff of [place] 16.5 H Plt Count 195 MPV 10.6 H Sodium Cancelled Potassium Cancelled Chloride Cancelled Carbon Dioxide Cancelled Anion Gap Cancelled BUN Cancelled Creatinine Cancelled Est Cr Clr Drug Dosing Cancelled Est GFR ( Amer) Cancelled Est GFR (Non-Af Amer) Cancelled BUN/Creatinine Ratio Cancelled Glucose Cancelled POC Glucose 141 H Calcium Cancelled Specimen Hemolysis 10/19/20 10/19/20 08:38 09:12 WBC RBC Hgb Hct MCV MCH MCHC RDW Std Deviation RDW Coeff of [place] Plt Count MPV Sodium 137 Potassium 3.3 L Chloride 93 L Carbon Dioxide 37 H Anion Gap 7.0 BUN 21 H Creatinine 0.94 Est Cr Clr Drug Dosing 157.6 Est GFR ( Amer) 106.9 Est GFR (Non-Af Amer) 92.2 BUN/Creatinine Ratio 21.8 H Glucose 230 H POC Glucose 174 H Calcium 9.3 Specimen Hemolysis
--- NOTE | 2020-10-19 12:51 | Cardiology Progress Note ---
Date of Service October 19, 2020 Assessment & Plan (1) Acute on chronic right-sided congestive heart failure: Responding to IV diuretics would continue (2) Pickwickian syndrome: BiPAP use essential once again urged ongoing compliance (3) Acute diastolic congestive heart failure: (4) Prolonged QT interval: (5) Hypokalemia: Continue oral supplementation (6) Morbid obesity: Admission and Anticipated Discharge Date Admission Date: October 16, 2020 Subjective Patient was seen and examined, chart, medications, telemetry reviewed. Now having brisk response to IV diuretics. No acute complaints Physical Exam Constitutional: + morbidly obese; no acute distress Respiratory: Auscultation: lungs clear to auscultation bilaterally and + diminished lung sounds; no crackles, no rales, no rhonchi and no wheezes Cardiovascular: Rate/Rhythm: regular rate and regular rhythm Heart Sounds: normal S1 and normal S2; no murmur Vessels: no JVD and no carotid bruit Extremities: + edema (2+ B/L LE edema with stasis changes) Gastrointestinal (Abdomen): Inspection/Auscultation: abdomen normal to inspection and normal bowel sounds; abdomen not distended Percussion/Palpation: abdomen soft; abdomen nontender, no guarding and abdomen not rigid Neurologic: moves all extremities; no focal motor deficits Speech / Cognition: normal speech Motor/Sensory: no tremor Results & Data ([facility]) Vital Signs (Past 12 Hours) Vital Signs Temp Pulse Pulse Pulse Resp BP Pulse Ox 10/19/20 11:10 36.3 C L 72 18 102/54 L 92 10/19/20 08:20 60 10/19/20 08:00 36.3 C L 72 18 131/74 92 10/19/20 04:22 36.4 C L 71 20 116/65 94 Laboratory Results Laboratory Results - last 24 hr 10/18/20 10/18/20 10/18/20 13:22 14:34 15:04 WBC RBC Hgb Hct MCV MCH MCHC RDW Std Deviation RDW Coeff of [place] Plt Count MPV Sodium Potassium Chloride Carbon Dioxide Anion Gap BUN Creatinine Est Cr Clr Drug Dosing Est GFR ( Amer) Est GFR (Non-Af Amer) BUN/Creatinine Ratio Glucose POC Glucose 215 H 178 H 164 H Calcium Specimen Hemolysis 10/18/20 10/18/20 10/18/20 15:37 16:07 17:11 WBC RBC Hgb Hct MCV MCH MCHC RDW Std Deviation RDW Coeff of [place] Plt Count MPV Sodium Potassium 3.4 L Chloride Carbon Dioxide Anion Gap BUN Creatinine Est Cr Clr Drug Dosing Est GFR ( Amer) Est GFR (Non-Af Amer) BUN/Creatinine Ratio Glucose POC Glucose 132 H 137 H Calcium Specimen Hemolysis 10/18/20 10/18/20 10/18/20 17:56 18:59 20:04 WBC RBC Hgb Hct MCV MCH MCHC RDW Std Deviation RDW Coeff of [place] Plt Count MPV Sodium Potassium Chloride Carbon Dioxide Anion Gap BUN Creatinine Est Cr Clr Drug Dosing Est GFR ( Amer) Est GFR (Non-Af Amer) BUN/Creatinine Ratio Glucose POC Glucose 190 H 155 H 117 H Calcium Specimen Hemolysis 10/18/20 10/18/20 10/18/20 21:03 22:04 22:59 WBC RBC Hgb Hct MCV MCH MCHC RDW Std Deviation RDW Coeff of [place] Plt Count MPV Sodium Potassium Chloride Carbon Dioxide Anion Gap BUN Creatinine Est Cr Clr Drug Dosing Est GFR ( Amer) Est GFR (Non-Af Amer) BUN/Creatinine Ratio Glucose POC Glucose 125 H 176 H 203 H Calcium Specimen Hemolysis 10/19/20 10/19/20 10/19/20 00:16 01:09 02:09 WBC RBC Hgb Hct MCV MCH MCHC RDW Std Deviation RDW Coeff of [place] Plt Count MPV Sodium Potassium Chloride Carbon Dioxide Anion Gap BUN Creatinine Est Cr Clr Drug Dosing Est GFR ( Amer) Est GFR (Non-Af Amer) BUN/Creatinine Ratio Glucose POC Glucose 171 H 167 H 169 H Calcium Specimen Hemolysis 10/19/20 10/19/20 10/19/20 03:04 04:13 05:07 WBC RBC Hgb Hct MCV MCH MCHC RDW Std Deviation RDW Coeff of [place]t Count MPV Sodium Potassium Chloride Carbon Dioxide Anion Gap BUN Creatinine Est Cr Clr Drug Dosing Est GFR ( Amer) Est GFR (Non-Af Amer) BUN/Creatinine Ratio Glucose POC Glucose 188 H 146 H 145 H Calcium Specimen Hemolysis 10/19/20 10/19/20 10/19/20 06:04 07:17 08:11 WBC 8.58 RBC 4.19 L Hgb 12.6 L Hct 39.6 L MCV 94.5 MCH 30.1 MCHC 31.8 L RDW Std Deviation 56.0 H RDW Coeff of [place] 16.5 H Plt Count 195 MPV 10.6 H Sodium Potassium Chloride Carbon Dioxide Anion Gap BUN Creatinine Est Cr Clr Drug Dosing Est GFR ( Amer) Est GFR (Non-Af Amer) BUN/Creatinine Ratio Glucose POC Glucose 144 H 141 H Calcium Specimen Hemolysis 10/19/20 10/19/20 10/19/20 08:11 08:38 09:12 WBC RBC Hgb Hct MCV MCH MCHC RDW Std Deviation RDW Coeff of [place]t Count MPV Sodium Cancelled 137 Potassium Cancelled 3.3 L Chloride Cancelled 93 L Carbon Dioxide Cancelled 37 H Anion Gap Cancelled 7.0 BUN Cancelled 21 H Creatinine Cancelled 0.94 Est Cr Clr Drug Dosing Cancelled 157.6 Est GFR ( Amer) Cancelled 106.9 Est GFR (Non-Af Amer) Cancelled 92.2 BUN/Creatinine Ratio Cancelled 21.8 H Glucose Cancelled 230 H POC Glucose 174 H Calcium Cancelled 9.3 Specimen Hemolysis 10/19/20 11:40 WBC RBC Hgb Hct MCV MCH MCHC RDW Std Deviation RDW Coeff of [place]t Count MPV Sodium Potassium Chloride Carbon Dioxide Anion Gap BUN Creatinine Est Cr Clr Drug Dosing Est GFR ( Amer) Est GFR (Non-Af Amer) BUN/Creatinine Ratio Glucose POC Glucose 200 H Calcium Specimen Hemolysis
[2020-10-20] MEDS: INSULIN ASPART 100 UNITS/ML 3 ML PEN SC SCH ×6 (00:02→20:56)
[2020-10-20] MEDS: HEPARIN SOD 5,000 UNIT/0.5 ML VIAL SQ SCH ×3 (05:57→21:00)
[2020-10-20] MEDS: PANTOprazole 40 MG TAB PO SCH (05:57)
[2020-10-20] MEDS: LIDOCAINE 5% 1 PATCH TD SCH (08:37)
[2020-10-20] MEDS: POTASSIUM CHLORIDE CRTAB 20 MEQ TABCR PO SCH ×2 (08:38→20:57)
[2020-10-20] MEDS: OXYBUTYNIN CHLORIDE XL 5 MG TABCR PO SCH (08:38)
[2020-10-20] MEDS: FUROSEMIDE 80 MG in SYRINGE 0 ML IV SCH ×2 (08:38→17:01)
[2020-10-20] MEDS: SPIRONOLACTONE 25 MG TAB PO SCH ×2 (08:38→20:58)
[2020-10-20] MEDS: VARENICLINE 1 MG TAB PO SCH ×2 (08:38→20:58)
[2020-10-20] MEDS: ASPIRIN 81 MG ECTAB PO SCH (08:38)
[2020-10-20] MEDS: DOXYCYCLINE HYCLATE 100 MG CAP PO SCH ×2 (08:38→20:57)
[2020-10-20] MEDS: SERTRALINE HCL 100 MG TABLET PO SCH (08:38)
[2020-10-20] MEDS: INSULIN GLARGINE 100 UNIT/ML VIAL SC SCH ×2 (08:39→21:00)
[2020-10-20] MEDS: CHOLECALCIFEROL 1,000 UNITS 25 MCG TAB PO SCH (08:39)
[2020-10-20] MEDS: UMECLIDINIUM BROMIDE 62.5MCG/BLISTER 7 PUFFS/INHALER INH SCH (08:39)
[2020-10-20 08:44] LABS: BUN Creatinine Ratio 20.1 (10-20); Blood Urea Nitrogen 19 mg/dl (7-18); Calcium 9.2 mg/dl (8.5-10.1); Carbon Dioxide 34 mmol/L (21-32); Chloride 97 mmol/L (98-107); Est GFR (African American) 105.5; Glucose 183 mg/dl (70-99); Phosphorus 3.5 mg/dl (2.5-4.9); Sodium 136 mmol/L (136-145)
[2020-10-20] MEDS: BACLOFEN 10 MG TAB PO SCH ×2 (08:45→20:57)
--- NOTE | 2020-10-20 10:53 | Hospitalist Progress Note ---
Date of Service October 20, 2020 Assessment & Plan (1) Acute on chronic right-sided congestive heart failure: Due to poor medication adherence Discussed patient's case with stevedoring superintendent. Echo reviewed Continue spironolactone Continue iv lasix 80mg daily today Keep holding metolazone Net negative -2L Has lost about 4kg since admission Continue to Monitor I's and O's Onboarding Specialist recommendations appreciated (2) Prolonged QT interval: (3) Hypokalemia: Prolonged QT on admission likely due to hypokalemia. Hypokalemia being agressively repleted Repeat EKG show improved QTc (from 533 to 499) Check K this AM Continue po potassium (4) Diabetes: (5) Acute hyperglycemia: Hyperglycemia due to poor medication adherence. Not in DKA Hemoglobin A1c 10.9 Required insulin drip. Now off since yesterday Continue sq insulin Monitor Potassium Consult DM educator (6) Morbid obesity: (7) SIDRA treated with BiPAP: Counselled patient again on need for BiPAP Patient will need aggressive weight management -conservative and possibly surgical to help manage his comorbidities as well. (8) Injury of toe, left, superficial, infected: Wound care Injury does not appear to be obviously infected at this time He does have poor foot care, dystrophic nail Does have erythema around nail from reported trauma and some skin excoriation DM foot care education done He claims he has a podiatry appointment this week No other sign of systemic infection or osteomyelitis on XR Continue doxycycline (9) Depression: Continue home medication (10) DVT prophylaxis: Continue heparin subcu Admission and Anticipated Discharge Date Admission Date: October 16, 2020 Subjective Patient seen and examined Patient denied any chest pain, cough, SOB Denied any headache, dizziness Denied abd pain, nausea, vomiting, diarrhea Denied any dysuria, freq, urgency Still has left great toe pain Physical Exam Constitutional: no acute distress Eyes: PERRL, conjunctivae normal, anicteric sclerae ENMT: external ear and nose normal, oropharynx normal Neck: + thick neck Respiratory: normal respiratory effort; no respiratory distress Auscultation: + diminished lung sounds; no crackles Cardiovascular: Rate/Rhythm: regular rate and regular rhythm Heart Sounds: normal S1 and normal S2 Gastrointestinal (Abdomen): normal bowel sounds, soft, nontender, no hepatosplenomegaly Musculoskeletal: 2+ bilateral leg edema Left great toe erythema and skin excoriation, tender Neurologic: PERRL, EOMI, accommodation nl, no face palsy, no dysarthria Psychiatric: A+Ox3, euthymic affect Results & Data Results & Data ([facility]) Vital Signs (Past 12 Hours) Vital Signs Temp Pulse Pulse Pulse Resp BP Pulse Ox 10/20/20 07:52 36.6 C 68 18 172/76 H 92 10/20/20 04:01 36.2 C L 79 20 118/69 89 L 10/20/20 03:15 75 20 90 10/19/20 23:55 36.5 C 78 19 142/79 H 89 L 10/19/20 23:15 70 20 92 Laboratory Results Laboratory Results - last 24 hr 10/19/20 10/19/20 10/19/20 11:40 15:37 20:31 Sodium Potassium Chloride Carbon Dioxide Anion Gap BUN Creatinine Est Cr Clr Drug Dosing Est GFR ( Amer) Est GFR (Non-Af Amer) BUN/Creatinine Ratio Glucose POC Glucose 200 H 143 H 125 H Calcium Phosphorus Magnesium 10/19/20 10/20/20 10/20/20 23:52 04:04 07:19 Sodium Potassium Chloride Carbon Dioxide Anion Gap BUN Creatinine Est Cr Clr Drug Dosing Est GFR ( Amer) Est GFR (Non-Af Amer) BUN/Creatinine Ratio Glucose POC Glucose 164 H 154 H 175 H Calcium Phosphorus Magnesium 10/20/20 08:08 Sodium 136 Potassium TNP Chloride 97 L Carbon Dioxide 34 H Anion Gap 6.0 BUN 19 H Creatinine 0.95 Est Cr Clr Drug Dosing 156.0 Est GFR ( Amer) 105.5 Est GFR (Non-Af Amer) 91.0 BUN/Creatinine Ratio 20.1 H Glucose 183 H POC Glucose Calcium 9.2 Phosphorus 3.5 Magnesium TNP
--- NOTE | 2020-10-20 13:48 | Pharmacy Report ---
Pharmacy Glycemic Short Note 2 - Date of Service October 20, 2020 - Glycemic Short BSG Results (Last 24 hours): 10/19/20 10/19/20 10/19/20 15:37 20:31 23:52 Glucose POC Glucose 143 H 125 H 164 H 10/20/20 10/20/20 10/20/20 04:04 07:19 08:08 Glucose 183 H POC Glucose 154 H 175 H 10/20/20 11:28 Glucose POC Glucose 276 H OUTPATIENT ANTIDIABETIC REGIMEN: * Dulaglutide 1.5mg SQ weekly * Glargine 63 units SQ BID * NovoLog 10 units SQ AC * Metformin 2,000mg PO daily * A1c = 10.9% on 10/17/20 ASSESSMENT: 10/20: * Patient transitioned off of drip yesterday * BSGs of 200, 143, 125, and 144 mg/dL yesterday after transition * Patient received 242 units of SC insulin yesterday (130 units of basal, 112 units of prandial/correctional) * Fasting BSG of 175 mg/dL this morning - will increase Lantus to 70 units BID starting at HS * Will consider carb ratio 1 unit per 1 gram CHO consumed with breakfast tomorrow 10/19: * Patient continuing on insulin drip this AM - rates decreasing ~2 units/hr. Drip stable x 3 checks. BSGs much improving now. * Will have nurse give Lantus now, and put drip on hold. Plan to cover AM check with SQ insulin * Novolog added ACHS. Plan to continue same basal insulin for now 10/18: * Patient continues on insulin drip this morning - had initially been on hold x 1 hr but then restarted at 7.7 units/hr. Previously had been running up to 25 units/hr. * BSGs continue to trending upward this morning. Adjusted set CR to 1.5 with lunch. Tightened from 2 this AM * Plan to increase basal insulin for HS to help with drip transition. Current parameters based upon previous admission. PLAN FOR INPATIENT GLYCEMIC CONTROL: * Hold outpatient oral diabetes medications & GLP-1 RA * Basal insulin - increase * Lantus 70 units BID * Bolus insulin * NovoLog per scale ACHS or Q6hrs while NPO * Goal Range: Low 110 mg/dL - High 140 mg/dL * Correction Factor: 7 mg/dL/unit * Nutritional / Prandial insulin per carb ratio of 1 unit per 1.5 grams CHO consumed PLAN FOR DISCHARGE: * TBD
[2020-10-20 13:49] LABS: Magnesium 2.1 mg/dl (1.8-2.4); Potassium 3.7 mmol/L (3.5-5.1)
--- NOTE | 2020-10-20 14:49 | Cardiology Progress Note ---
Date of Service October 20, 2020 Assessment & Plan (1) Acute on chronic right-sided congestive heart failure: Responding to IV diuretics weight down at least 4 kg. Renal function stable (2) Pickwickian syndrome: BiPAP use essential once again urged ongoing compliance (3) Acute diastolic congestive heart failure: (4) Prolonged QT interval: Repeat studyordered (5) Hypokalemia: Continue oral supplementation (6) Morbid obesity: Admission and Anticipated Discharge Date Admission Date: October 16, 2020 Subjective Patient was seen and examined, chart, medications, telemetry reviewed. Patient feels improved. Leg edema reduced. Blood sugars come under better control. No dizziness or lightheadedness. No chest pain Physical Exam Constitutional: + morbidly obese; no acute distress Respiratory: Auscultation: lungs clear to auscultation bilaterally and + diminished lung sounds; no crackles, no rales, no rhonchi and no wheezes Cardiovascular: Rate/Rhythm: regular rate and regular rhythm Heart Sounds: normal S1 and normal S2; no murmur Vessels: no JVD and no carotid bruit Extremities: + edema (2+ B/L LE edema with stasis changes less tense) Gastrointestinal (Abdomen): Inspection/Auscultation: abdomen normal to inspection and normal bowel sounds; abdomen not distended Percussion/Palpation: abdomen soft; abdomen nontender, no guarding and abdomen not rigid Neurologic: moves all extremities; no focal motor deficits Speech / Cognition: normal speech Motor/Sensory: no tremor Results & Data ([facility]) Vital Signs (Past 12 Hours) Vital Signs Temp Pulse Pulse Pulse Resp BP Pulse Ox 10/20/20 11:45 36.7 C 73 18 90/62 L 97 10/20/20 10:48 70 10/20/20 07:52 36.6 C 68 18 172/76 H 92 10/20/20 04:01 36.2 C L 79 20 118/69 89 L 10/20/20 03:15 75 20 90
[2020-10-21] MEDS: HEPARIN SOD 5,000 UNIT/0.5 ML VIAL SQ SCH (06:18)
[2020-10-21] MEDS: PANTOprazole 40 MG TAB PO SCH (06:19)
[2020-10-21] MEDS: LIDOCAINE 5% 1 PATCH TD SCH (08:02)
[2020-10-21] MEDS: UMECLIDINIUM BROMIDE 62.5MCG/BLISTER 7 PUFFS/INHALER INH SCH (08:02)
[2020-10-21] MEDS: INSULIN GLARGINE 100 UNIT/ML VIAL SC SCH (08:03)
[2020-10-21] MEDS: INSULIN ASPART 100 UNITS/ML 3 ML PEN SC SCH ×2 (08:05→11:45)
[2020-10-21] MEDS: FUROSEMIDE 80 MG in SYRINGE 0 ML IV SCH (08:07)
[2020-10-21] MEDS: SPIRONOLACTONE 25 MG TAB PO SCH (08:07)
[2020-10-21] MEDS: VARENICLINE 1 MG TAB PO SCH (08:07)
[2020-10-21] MEDS: POTASSIUM CHLORIDE CRTAB 20 MEQ TABCR PO SCH (08:08)
[2020-10-21] MEDS: ASPIRIN 81 MG ECTAB PO SCH (08:08)
[2020-10-21] MEDS: SERTRALINE HCL 100 MG TABLET PO SCH (08:08)
[2020-10-21] MEDS: DOXYCYCLINE HYCLATE 100 MG CAP PO SCH (08:08)
[2020-10-21] MEDS: CHOLECALCIFEROL 1,000 UNITS 25 MCG TAB PO SCH (08:09)
[2020-10-21] MEDS: OXYBUTYNIN CHLORIDE XL 5 MG TABCR PO SCH (08:09)
[2020-10-21] MEDS: BACLOFEN 10 MG TAB PO SCH (08:14)
[2020-10-21 08:43] LABS: Calcium 9.3 mg/dl (8.5-10.1); Creatinine Clr Calc Pharmacy 159.7 ml/min; Est GFR (African American) 109.7; Est GFR (Non-African American) 94.6
[2020-10-21] MEDS ORDERED: POTASSIUM CHLORIDE 20 MEQ/15 ML UDC PO STA (10:31)
--- NOTE | 2020-10-21 10:32 | Cardiology Progress Note ---
Date of Service October 21, 2020 Assessment & Plan (1) Acute on chronic right-sided congestive heart failure: Responding to IV diuretics weight down at 7 kg, approaching baseline Renal function stable Recommendations: Resume prior oral diuretic regimen. Reduce metolazone to twice per week, increase spironolactone 100 mg a.m., 50 mg p.m. BMP 1 week Once again discussed CHF instructions. Mandatory patient improve compliance (2) Pickwickian syndrome: BiPAP use essential once again urged ongoing compliance. Reviewed telemetry dated with patient noting transient bradycardia nocturnally. Potential for substantial worsening off BiPAP emphasized (3) Acute diastolic congestive heart failure: (4) Prolonged QT interval: (5) Hypokalemia: Continue oral supplementation (6) Morbid obesity: Admission and Anticipated Discharge Date Admission Date: October 16, 2020 Subjective Patient was seen and examined, chart, medications, telemetry reviewed. Patient feels improved. Leg edema reduced. Weight down 7 kg. Patient anxious to be discharged Physical Exam Constitutional: + morbidly obese; no acute distress Respiratory: Auscultation: lungs clear to auscultation bilaterally and + diminished lung sounds; no crackles, no rales, no rhonchi and no wheezes Cardiovascular: Rate/Rhythm: regular rate and regular rhythm Heart Sounds: normal S1 and normal S2; no murmur Vessels: no JVD and no carotid bruit Extremities: + edema (12+ B/L LE edema with stasis changes less tense, reduced) Gastrointestinal (Abdomen): Inspection/Auscultation: abdomen normal to inspection and normal bowel sounds; abdomen not distended Percussion/Palpation: abdomen soft; abdomen nontender, no guarding and abdomen not rigid Neurologic: moves all extremities; no focal motor deficits Speech / Cognition: normal speech Motor/Sensory: no tremor Results & Data ([facility]) Vital Signs (Past 12 Hours) Vital Signs Temp Pulse Pulse Resp BP BP Pulse Ox 10/21/20 08:14 36.8 C 83 20 132/77 95 10/21/20 07:22 73 10/21/20 03:55 36.3 C L 70 16 128/55 L 92 10/21/20 02:09 62 18 93 10/21/20 00:10 65 20 91 10/20/20 23:15 36.4 C L 72 17 138/88 91 Laboratory Results Laboratory Results - last 24 hr 10/20/20 10/20/20 10/20/20 11:28 13:10 15:02 Sodium Potassium 3.7 Chloride Carbon Dioxide Anion Gap BUN Creatinine Est Cr Clr Drug Dosing Est GFR ( Amer) Est GFR (Non-Af Amer) BUN/Creatinine Ratio Glucose POC Glucose 276 H 163 H Calcium Magnesium 2.1 10/20/20 10/20/20 10/21/20 16:27 20:55 07:36 Sodium Potassium Chloride Carbon Dioxide Anion Gap BUN Creatinine Est Cr Clr Drug Dosing Est GFR ( Amer) Est GFR (Non-Af Amer) BUN/Creatinine Ratio Glucose POC Glucose 127 H 84 179 H Calcium Magnesium 10/21/20 10/21/20 07:45 09:00 Sodium 137 Potassium 3.3 L Chloride 100 Carbon Dioxide 32 Anion Gap 5.0 BUN 17 Creatinine 0.92 Est Cr Clr Drug Dosing 159.7 Est GFR ( Amer) 109.7 Est GFR (Non-Af Amer) 94.6 BUN/Creatinine Ratio 19.0 Glucose 140 H POC Glucose Calcium 9.3 Magnesium
--- NOTE | 2020-10-21 11:39 | Discharge Summary ---
Date of Service October 21, 2020 Admission HPI Per Admitting Provider 55-year-old male with past medical history significant for morbid obesity, obstructive sleep apnea, noncompliant with BiPAP, diabetes, chronic diastolic CHF,right sided HF, peripheral vascular disease, hypertension, venous insufficiency, venous stasis of both lower extremities, GERD, vitamin D deficiency, history of cellulitis right leg, history of cellulitis of left lower extremity, lymphedema of both extremities, history of oral candidiasis, depression, history of DVT, generalized anxiety disorder, history of male erectile dysfunction, ongoing tobacco abuse. The patient says he cut back on smoking to 4-5 cigarettes daily. The patient says he uses 2 liters of oxygen every day while sleeping and BiPAP he uses on and off. He states he is taking all his medications regularly. He just saw his PCP yesterday for the left great toe injury, which he had with accidental fall from his motorized chair and he was given a dose of Rocephin IM for which he seems to have developed an itchiness, which resolved with Benadryl, Decadron, and Rocephin entered into allergy list and he was discharged on Bactrim, but says at home he was not feeling well today and his sugars were running high, which prompted him to come to the ER. In the ER, his sugars were in 500 range. In ER His sodium is 129, potassium is 2.6, creatinine is 1.35. His hemodynamics are stable, saturating fine. He says he has some chest pressure in the middle of the chest. He thinks he gained about 11-13 pounds of weight since yesterday. He is taking his water pill, but he says he is not micturating as much. He has some shortness of breath with exertion. He uses a walker at home and also wheelchair. Afebrile, has some cough with whitish phlegm. He thinks it is mostly from cutting back on smoking. Has some headache now. Lights bothering him. Denies any blurred vision. No earache, no runny nose. He has some sore throat from dry throat, and sore tongue. Denies any loss of sense of smell or taste. Appetite is okay. No nausea, no vomiting, no abdominal pain. Normal bowel movements. Hemodynamically stable. Admission Exam Per Admitting Provider GENERAL: The patient is morbidly obese, not in acute distress. VITAL SIGNS: Temperature 36.7, pulse 78, respiratory rate 24, blood pressure 145/84, oxygen 93% on room air. HEENT: Pupils are equal, round, reactive to light. Oral mucosa somewhat dry. NECK: No JVD. Supple. CARDIOVASCULAR: S1, S2 heard, regular rate and rhythm, no murmur, no gallop. RESPIRATORY SYSTEM: Normal AP diameter. No accessory muscle use. No wheezing, no crackles. ABDOMEN: Soft, bowel sounds present, nontender. No guarding, no rigidity. CENTRAL NERVOUS SYSTEM: Cranial nerves II-XII grossly intact, nonfocal. EXTREMITIES: Bilateral lower extremity chronic lymphedema seen with left big toe. Mild erythema seen with left big toenail. Principal Diagnosis Acute on chronic diastolic heart failure Poorly controlled diabetes with hyperglycemia Hypokalemia Left great toe injury with cellulitis Discharge Exam Constitutional + well hydrated and + morbidly obese; no acute distress Eyes PERRL, conjunctivae normal, anicteric sclerae ENMT external ear and nose normal, oropharynx normal Neck + thick neck Respiratory normal respiratory effort; no respiratory distress Auscultation: + diminished lung sounds; no crackles Cardiovascular Rate/Rhythm: regular rate and regular rhythm Heart Sounds: normal S1 and normal S2 Gastrointestinal (Abdomen) normal bowel sounds, soft, nontender, no hepatosplenomegaly Musculoskeletal 2+ bilateral leg edema Left great toe erythema and skin excoriation with clean dressing Neurologic PERRL, EOMI, accommodation nl, no face palsy, no dysarthria Psychiatric A+Ox3, euthymic affect Discharge Data Allergies Allergy/AdvReac Type Severity Reaction Status Date / Time vancomycin Allergy Intermediate Hives Verified 10/16/20 22:39 hydrocodone [From Vicodin] Allergy Mild Rash Verified 10/16/20 22:39 Consultations 10/16/20 22:24 ED Decision to Admit Stat 10/17/20 01:53 Consult Case Management - Discharge Planning Routine 10/17/20 08:00 Consult Cardiology Routine Diabetes Follow up Diabetes Follow-up Needed for HgbA1c >9% Hospital Course (1) Acute on chronic right-sided congestive heart failure: Due to poor medication adherence Has not been adherent to meds, dietary and fluid management at home Echo reviewed Was diuresed with iv fluids Lost 7Kg since admission Patient counselled extensively on need for adherence to meds, fluid restriction Continue home diuretics Patient stated he has all meds at home and does not need a refill Advised to follow up with Cardiology outpatient (2) Prolonged QT interval: (3) Hypokalemia: Prolonged QT on admission likely due to hypokalemia. Hypokalemia being agressively repleted Repeat EKG show improved QTc (from 533 to 499) K was 2.6. Was aggressively repleted Continue po potassium twice a day at home (4) Diabetes: (5) Acute hyperglycemia: Hyperglycemia due to poor medication adherence. Not in DKA Hemoglobin A1c 10.9 Blood glucose was 503 on admission Required insulin drip initially once K repletion was initiated Was gotten off insulin drip to sq insulin Provided DM education and counselling Follow up with DM educator outpatient Counselled patient on need to quit smoking (6) Morbid obesity: (7) SIDRA treated with BiPAP: Counselled patient again on need for BiPAP compliance Patient will need aggressive weight management -conservative and possibly surgical to help manage his comorbidities as well. (8) Injury of toe, left, superficial, infected: Injury does not appear to be infected He does have poor foot care, dystrophic nail Does have erythema around nail from reported trauma and some skin excoriation Was treated with antibiotics while inpatient DM foot care education done He claims he has a podiatry appointment this week. Advised to follow up with podiatry No other sign of systemic infection or osteomyelitis on XR (9) Depression: Continue home medication Total Time Total Time Spent Total Time Spent (In Minutes): 50 Total Time Includes: Examination of the Patient, Discharge Planning and Medication Reconciliation Discharge Plan Discharge Items Patient Disposition: Home - Self-Care Reason For Visit: CHF Discharge Diagnosis: Acute on chronic diastolic heart failure Poorly controlled diabetes with hyperglycemia Hypokalemia Left great toe injury with cellulitis Activity: Resume your previous activity Non-emergency contact: Primary Care Provider and Product Design Manager Call non-emergency contact if: you have any medication questions and your symptoms worsen Follow-up/Referrals: Suzette Guzman PA-C [Physician [employer]] - (10/27/2020 1:00 PM Provider Suzette Guzman PA-C Department Cardiology, [facility] ) Chavo Roy DO [Primary Care Provider] - (Date & Time 10/24/2020 12:00 PM Provider Chavo Roy DO Department Family Practice [facility] ) Diet: Carb Consistent or DM2 and Heart Healthy Fluids: 1800ml (7 cups) Addtl Attending Provider Instructions: Mr Sanchez You came to the hospital complaining of not feeling well and elevated blood glucose. You were evaluated and found to have heart failure exacerbation and hyperglycemia. You were treated for these. It is very important that you comply and adhere to your medications It is also very important that you use your BIPAP at home. Please follow up with your primary doctor and Product Design Manager. You also completed antibiotic for your left toe wound Please quit smoking as we discussed. You reported you have all your meds at home. Please ensure you take them as prescribed. Please adhere to carbohydrate controlled diet as we discussed It was a pleasure taking care of you. Pending Studies at Discharge: No Stand-Alone Forms: My [facility], Smoking Cessation Medications and DC Order Prescriptions: Continued cholecalciferol (vitamin D3) 2,000 unit capsule 2,000 unit PO DAILY RF: 0 Chantix 1 mg tablet 1 mg PO BID RF: 0 torsemide 20 mg tablet 80 mg PO BID RF: 0 sennosides [senna] 8.6 mg Tablet 17.2 mg PO DAILY PRN (Reason: Constipation) RF: 0 aspirin 81 mg Tablet,Delayed Release (Dr/Ec) 81 mg PO DAILY RF: 0 acetaminophen 500 mg Tablet 1,000 mg PO Q6H PRN (Reason: Pain) RF: 0 pantoprazole 40 mg Tablet,Delayed Release (Dr/Ec) 40 mg PO DAILYBB RF: 0 albuterol sulfate [Ventolin HFA] 90 mcg/actuation Hfa Aerosol Inhaler 2 puff INHALATION Q4H PRN (Reason: Shortness Of Breath Or Wheezing) RF: 0 Trulicity 1.5 mg/0.5 mL pen injector 1.5 mg SUBCUT WK RF: 0 Androderm 4 mg/24 hr patch 24 hour 4 mg transdermal DAILY RF: 0 nystatin [Nystop] 100,000 unit/gram powder 1 applic TOPICAL TID PRN (Reason: Skin Irritation) RF: 0 insulin aspart U-100 [Novolog Flexpen U-100 Insulin] 100 unit/mL (3 mL) insulin pen 10 unit SUBCUT AC RF: 0 metolazone 2.5 mg tablet 2.5 mg PO 3XWK RF: 0 metformin 500 mg tablet extended release 24 hr 2,000 mg PO DAILY RF: 0 ammonium lactate 12 % lotion 1 applic TOPICAL BID PRN (Reason: Dry Skin - Legs) RF: 0 potassium chloride 20 mEq tablet extended release 40 meq PO BID Qty: 0 RF: 0 Lantus Solostar U-100 Insulin 100 unit/mL (3 mL) Insulin Pen 63 unit subcut BID Qty: 0 RF: 0 baclofen 10 mg tablet 10 mg PO BID RF: 0 tramadol 50 mg tablet 50 mg PO Q8H PRN (Reason: Pain) RF: 0 oxybutynin chloride [Ditropan XL] 10 mg Tablet Extended Release 24hr 10 mg PO DAILY RF: 0 sertraline [Zoloft] 100 mg Tablet 100 mg PO DAILY RF: 0 spironolactone 50 mg Tablet 50 mg PO BID RF: 0 Spiriva with HandiHaler 18 mcg 18 mcg inhalation DAILY RF: 0 Discontinued sulfamethoxazole-trimethoprim 800-160 mg tablet 1 tab PO BID RF: 0 Discharge Orders: Discharge Order (Routine); Ordered 10/21/20 Ordered By: Christiane William/Other Patient Handouts: High Blood Sugar (Hyperglycemia), Managing Type 2 Diabetes, Diabetes: Meal Planning Admission Data Admit Date/Time: 10/16/20 23:39 Attending Provider: Christiane Betancourt I. Admit Provider: Hakan Izaguirre Primary Care Provider: Chavo Roy Other Providers: Hakan Izaguirre ; Hector Mccabe ; Neftaly Reyes ; Parag Alston ; Mihir Jones ; JenniferDenis mera ; Pancho Stuart ; Suzette Guzman ; Aydee Agarwal ; Heri Teran Other Interventions: Discharge Summary Assessment (RN) Last Done: 10/21/20 10:45
--- NOTE | 2020-10-21 15:37 | Electrocardiogram Report ---
Test Reason : Blood Pressure : / mmHG Vent. Rate : 071 BPM Atrial Rate : 071 BPM P-R Int : 190 ms QRS Dur : 174 ms QT Int : 502 ms P-R-T Axes : 058 -15 022 degrees QTc Int : 545 ms Normal sinus rhythm Right bundle branch block Abnormal ECG When compared with ECG of 18-OCT-2020 11:22, No significant change was found Confirmed by Spike Presley ([id number]) on 10/21/2020 3:37:03 PM Referred By: REFERRED SELF Confirmed By:Bob Presley
== END 2020-10-21 13:45 | disposition home or self-care (01) | DRG 292 ==
LOC: ED 19:32 → 2S 23:39